=== PATIENT | female | born 1935 | race Caucasian/White ===

== ENCOUNTER 2016-10-10 14:15 | Emergency (ER) | payer OTHER ==
[2016-10-10 14:21] VITALS: BP 122/66; PULSE 98; TEMP 98.2; BMI 28.0
[2016-10-10] MEDS ORDERED: KETOROLAC TROMETHAMINE 30 MG/1 ML VIAL ONE (15:22)
[2016-10-10] MEDS ORDERED: diazePAM 5 MG TABLET ONE (15:23)
[2016-10-10] MEDS ORDERED: KETOROLAC TROMETHAMINE 60 MG/2 ML VIAL IM ONE (15:33)
[2016-10-10] MEDS ORDERED: diazePAM 5 MG TABLET PO ONE (15:34)
--- NOTE | 2016-10-10 15:40 | PDOC ---
History of Present Illness - General Chief Complaint: Pain Stated Complaint: Right Hip side pain Time Seen by Provider: 10/10/16 14:47 History Source: Patient, Parent(s) Exam Limitations: No Limitations - History of Present Illness Initial Comments: 10/10/16 15:40 Shunt is here with complaints of right low back pain 2 weeks. 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 The following day was holding heavy cake on her lap but was sitting inappropriately in the struck sideways for approximately 45 minutes. States after that incident had worsening pain in the same area that is lasted primarily constantly for 2 weeks. Used 200mg tablets with minimal resolved. Denies numbness or tingling to hands or feet, denies fever, cough or URI symptoms. Denies nausea vomiting, diarrhea or constipation. Denies changes in bowel or bladder without any noted bleeding or discoloration although feels is mildly dehydrated" does not drink enough water". Denies any vaginal complaints. Has not seen private physician in 10 years, and is taking no medication 10/10/16 15:44 Occurred: reports: just prior to arrival Severity: reports: mild, moderate Pain Location: reports: back Method of Injury: Yes: unknown Modifying Factors: improves with: None Associated Symptoms (Fall): denies symptoms Past History - Travel Traveled outside of the country in the last 30 days: No Close contact w/someone who was outside of country & ill: No - Past Medical History Allergies/Adverse Reactions: Allergies Allergy/AdvReac Type Severity Reaction Status Date / Time No Known Allergies Allergy Verified 10/10/16 14:20 Home Medications: Ambulatory Orders No Home Medications 0 dose .ROUTE UTDICT 12/07/13 Cardiac Disorders: Yes (MVP?) COPD: Yes - Immunization History Td Vaccination: Yes (2009) Immunization Up to Date: No - Psycho/Social/Smoking Cessation Hx Anxiety: No Suicidal Ideation: No Smoking History: Never smoked Information on smoking cessation initiated: No Hx Alcohol Use: Yes (wine) Drug/Substance Use Hx: No Substance Use Type: None Trauma Specific PMHX - Complaint Specific PMHX Arthritis: No Back Injury: No Neck Injury: No Hx Sacro Iliac Joint Dysfunction: No Review of Systems - Review of Systems Able to Perform ROS?: Yes Is the patient limited Turkish proficient: Yes Constitutional: Yes: Symptoms Reported, See HPI, Malaise HEENTM: No: Symptoms Reported Respiratory: Yes: Symptoms reported ABD/GI: Yes: Symptoms Reported Integumentary: Yes: See HPI. No: Symptoms Reported, Bruising, Pruritus, Rash Neurological: Yes: See HPI. No: Symptoms reported, Headache All Other Systems: Reviewed and Negative *Physical Exam - Vital Signs Last Vital Signs Temp Pulse Resp BP Pulse Ox 98.2 F 98 H 18 122/66 98 10/10/16 14:19 10/10/16 14:19 10/10/16 14:19 10/10/16 14:19 10/10/16 14:19 - Physical Exam General Appearance: Yes: Nourished, Appropriately Dressed, Mild Distress HEENT: positive: SATURNION, Normal ENT Inspection, TMs Normal, Pharynx Normal Neck: positive: Supple. negative: Tender, Lymphadenopathy (R), Lymphadenopathy (L) Respiratory/Chest: positive: Lungs Clear, Normal Breath Sounds Female Pelvic Exam: negative: normal external exam Gastrointestinal/Abdominal: positive: Normal Bowel Sounds, Soft. negative: Tender, Organomegaly, Guarding, Rebound, Tenderness Musculoskeletal: positive: Muscle Spasm (palpable spasm noted to the paravertebral spinous muscles lumbar and lower rhomboid areas. Has no true bone tenderness along cervical thoracic or lumbar spine. Able to flex and extend at waist but movement from side to side reproduces the pain in the same muscle groups ). negative: Vertebral Tenderness Extremity: positive: Normal Capillary Refill, Normal Range of Motion. negative : Tender Integumentary: positive: Normal Color. 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 NML intact, Fully Oriented, Alert, Normal Mood/ Affect, Normal Response, Motor Strength 5/5 Progress Note - Progress Note Progress Note: Lower back strain, will treat with low dose NSAIDs and low dose Valium for antispasmodic and have follow-up with PMD *DC/Admit/Observation/Transfer Diagnosis at time of Disposition: Low back strain Qualifiers: Encounter type: initial encounter Qualified Code(s): S39.012A - Strain of muscle, fascia and tendon of lower back, initial encounter - Discharge Dispostion Disposition: HOME Condition at time of disposition: Stable Admit: No - Patient Instructions Printed Discharge Instructions: DI for Back Spasm Additional Instructions: Rest, no heavy lifting or exercise until pain is resolved Hot soaks to neck and low back as often as possible/hot showers or Jacuzzis No massage or therapy until spasm is gone Continue ibuprofen 200 mg tablets every 6 hours for the next 3 days then as needed for pain and swelling Valium- One half of 5 mg tablet every 8 hours as needed for spasm If not significant improvement within 24 hours with medication and rest regime, followup with private physician for change in medications and /or therapy.
[2016-10-10 16:10] LABS: URINE APPEARANCE CLOUDY; URINE BILIRUBIN NEGATIVE (NEGATIVE); URINE COLOR YELLOW; URINE GLUCOSE (UA) NEGATIVE (NEGATIVE); URINE KETONE TRACE (NEGATIVE); URINE NITRITE NEGATIVE (NEGATIVE); URINE UROBILINOGEN NEGATIVE E.U./dl (0.2-1.0)
[2016-10-10 16:26] LABS: URINE BLOOD 1+ (NEGATIVE); URINE LEUK ESTERASE TRACE (NEGATIVE); URINE PROTEIN 2+ (NEGATIVE)
[2016-10-10 16:34] LABS: URINE MUCUS MANY; URINE RBC 5 /hpf (0-3); URINE WBC 11 /hpf (3-5)
== END 2016-10-10 16:37 | disposition home or self-care (01) ==
LOC: JERFT 14:15
PROC: 3E0233Z Introduction of Anti-inflammatory into Muscle, Percutaneous Approach (ICD-10-PCS; principal; 2016-10-10)
DX: S39.012A Strain of muscle, fascia and tendon of lower back, initial encounter (principal); M62.830 Muscle spasm of back; X50.1XXA Overexertion from prolonged static or awkward postures, initial encounter; V48.4XXA Person boarding or alighting a car injured in noncollision transport accident, initial encounter; Y92.414 Local residential or business street as the place of occurrence of the external cause; Y93.89 Activity, other specified; Y99.9 Unspecified external cause status; J44.9 Chronic obstructive pulmonary disease, unspecified
CPT/HCPCS: 81003; 81015; 96372; 99281-25

== ENCOUNTER 2016-12-19 19:11 | Inpatient (IN) | payer OTHER ==
--- NOTE | 2016-12-19 20:47 | PDOC ---
History of Present Illness - General Chief Complaint: Respiratory Stated Complaint: CT SCAN ORDERED BY DR Alejandre Seen by Provider: 12/19/16 19:32 - History of Present Illness Initial Comments: 12/19/16 20:34 81 yo F with h/o diverticulosis, multiple sclerosis( 11/12/16) , and compression fracture s/p lumbar surgery ( 11/18/16) presents with chest pain. Denies trauma to chest. Reports one week left sided chest pain. Pain is sharp in nature and onset with deep inhalation. Endorses discomfort/difficulty with breathing, " feels like a left lung is not expanding fully." Denies SOB, cough, hemoptysis, leg/calf pain, leg swelling, shoulder/jaw/neck pain, lightheadedness, dizziness , N/V, fevers/chills, GI complaints, or urinary complaints . Had recent lumbar spine surgery at [facility] 11/18, and rehabilitation for 3 weeks and past 4-5 days at "[facility] States that she has received 2 CXRs, and doppler ultrasonography of BL LE. She states that she was told by her pan puller " Dr. Pope" that she should come to ED to receive CTA chest to definitively r/o PE. Pt. denies HRT. H/o PE over 30 years ago. OTC extra stregnth Tylenol 1000mg BID. Pt. states that she does not wish to receive CXR in ED d/t concern of excessive radiation exposure. Past History - Past Medical History Allergies/Adverse Reactions: Allergies Allergy/AdvReac Type Severity Reaction Status Date / Time Latex, Natural Rubber Allergy Verified 12/19/16 19:56 Penicillins Allergy Verified 12/19/16 19:56 Home Medications: Ambulatory Orders No Home Medications 0 dose .ROUTE UTDICT 12/07/13 Cardiac Disorders: Yes (MVP?) COPD: Yes - Immunization History Td Vaccination: Yes (2009) Immunization Up to Date: No - Psycho/Social/Smoking Cessation Hx Anxiety: No Suicidal Ideation: No Smoking History: Unknown if ever smoked Have you smoked in the past 12 months: No Information on smoking cessation initiated: No Hx Alcohol Use: No Drug/Substance Use Hx: No Substance Use Type: None Review of Systems - Review of Systems Comments:: 12/19/16 20:53 GENERAL/CONSTITUTIONAL: No fever or chills. No weakness. HEAD, EYES, EARS, NOSE AND THROAT: No change in vision. No ear pain or discharge. No sore throat. CARDIOVASCULAR: No chest pain or shortness of breath RESPIRATORY: + Chest wall pain. No cough, wheezing, or hemoptysis. GASTROINTESTINAL: No nausea, vomiting, diarrhea or constipation. GENITOURINARY: No dysuria, frequency, or change in urination. MUSCULOSKELETAL: No joint or muscle swelling or pain. No neck or back pain. SKIN: No rash NEUROLOGIC: No headache, vertigo, loss of consciousness, or change in strength/ sensation. ENDOCRINE: No increased thirst. No abnormal weight change HEMATOLOGIC/LYMPHATIC: No anemia, easy bleeding, or history of blood clots. ALLERGIC/IMMUNOLOGIC: No hives or skin allergy. *Physical Exam - Vital Signs Last Vital Signs Temp Pulse Resp BP Pulse Ox 98.6 F 95 H 16 112/75 97 12/19/16 19:56 12/19/16 19:56 12/19/16 19:56 12/19/16 19:56 12/19/16 19:56 - Physical Exam Comments: 12/19/16 20:54 GENERAL: Awake, alert, and fully oriented, in no acute distress HEAD: No signs of trauma, normocephalic, atraumatic EYES: PERRLA, EOMI, sclera anicteric, conjunctiva clear ENT: Auricles normal inspection, hearing grossly normal, nares patent, oropharynx clear without exudates. Moist mucosa NECK: Normal ROM, supple, no lymphadenopathy, JVD, or masses LUNGS: Left sided lateral chest wall tenderness at 7-8th rib space Anterior- Midaxillary line. Absent Bulging. No distress, speaks full sentences, clear to auscultation bilaterally HEART: Regular rate and rhythm, normal S1 and S2, no murmurs, rubs or gallops, peripheral pulses normal and equal bilaterally. ABDOMEN: Soft, nontender, normoactive bowel sounds. No guarding, no rebound. No masses EXTREMITIES: Normal inspection, Normal range of motion, no edema. No clubbing or cyanosis. NEUROLOGICAL: Cranial nerves II through XII grossly intact. Normal speech, normal gait, no focal sensorimotor deficits SKIN: Warm, Dry, normal turgor, no rashes or lesions noted Heart Score/ECG Review - History History: Slightly suspicious - Electrocardiogram EKG: Normal - Age Age: >/= 65 - Risk Factors Based on the list above the patient has:: 1-2 risk factors - Troponin Troponin: </= normal limit - Score Heart Score - Total: 3 - [place]: Normal - ECG Impressions Normal ECG: Yes ED Treatment Course - LABORATORY CBC & Chemistry Diagram: 12/19/16 23:20 12/19/16 23:20 Medical Decision Making - Medical Decision Making 81 yo F with h/o MM, diverticulosis, lumbar compression fracture s/p surgical repair ( 11/18) who presents with lateral chest wall tenderness. Pt. concerned that she has PE. Moderate Risk Group: 16.2% risk of PE Wells Criteria Pt. h/o renal dz. 2/2 MM. V/Q scan vs. CTA Suspicion of MSK related chest wall pain vs. rib fracture. DDx: MSK pain, rib fracture, pneumonia,PE Ed course: Discussed with Dr. Lyon Pt. admission to Telemetry CMP- Unremarkable CBC- WBC:3.9, Hgb: 9.5, Hct: 28.4 EKG- unremarkable Trop- Neg Consult Pulmonology and Cardiology 12/20/16 00:14 Heart Score 0-3 *DC/Admit/Observation/Transfer Diagnosis at time of Disposition: Multiple myeloma Qualifiers: Multiple myeloma remission status: unspecified Qualified Code(s): C90.00 - Multiple myeloma not having achieved remission Chest pain Qualifiers: Chest pain type: chest pain on breathing Qualified Code(s): R07.1 - Chest pain on breathing - Discharge Dispostion Admit: Yes - Referrals Referrals: Oumou Silva MD [Primary Care Provider] -
--- NOTE | 2016-12-19 22:04 | PDOC ---
Attending Attestation - HPI HPI: The patient is an 81 yo F with a past medical history significant for diverticulosis, multiple sclerosis (11/12/16) , and compression fracture s/p lumbar surgery ( 11/18/16) who presents with L sided chest pain for 4 days. Patient states the pain is only present on deep inhalation. When she exhales it goes away. Patient denies SOB. The patient denies nausea, vomiting, diarrhea and abdominal pain. Has been in rehab for past 3 weeks s/p lumbar surgery. Patient states she was referred her by her registration officer to definitively r/o PE. PCP: Dr. Beck - Physicial Exam PE: GENERAL: Well developed, well nourished. Awake and alert. No acute distress. Conversant. HEENT: Normocephalic, atraumatic. PERRLA, EOMI. No conjunctival pallor. Sclera are non- icteric. Moist mucous membranes. Oropharynx is clear. NECK: Supple. Full ROM. No JVD. Carotid pulses 2+ and symmetric, without bruits. No thyromegaly. No lymphadenopathy. CARDIOVASCULAR: Regular rate and rhythm. No murmurs, rubs, or gallops. Distal pulses are 2+ and symmetric. PULMONARY: No evidence of respiratory distress. Lungs clear to auscultation bilaterally. No wheezing, rales or rhonchi. ABDOMINAL: Soft. Non-tender. Non-distended. No rebound or guarding. No organomegaly. Normoactive bowel sounds. MUSCULOSKELETAL Normal range of motion at all joints. No bony deformities or tenderness. No CVA tenderness. EXTREMITIES: No cyanosis. No clubbing. No edema. No calf tenderness. SKIN: Warm and dry. Normal capillary refill. No rashes. No jaundice. NEUROLOGICAL: No gross focal neurological deficits. PSYCHIATRIC: Cooperative. Good eye contact. Appropriate mood and affect. - Medical Decision Making Documentation prepared by Arleth Shah, acting as medical scientific officer for Heather Erickson MD/DO. <Arleth Shah - Last Filed: 12/20/16 00:54> - Physicial Exam PE: 12/20/16 01:29 81-year-old female sent from [facility] to rule out a pulmonary embolism -Patient has multiple myeloma and had a pathological vertebral fracture that required surgery. -according to the pt, They stopped her subcutaneous Lovenox and surgical stockings at the [facility] She has developed left-sided pleuritic chest pain Troponin is negative On December 15. She had chest x-ray that did not show any infiltrates, she also had lower extremity Dopplers dominant December 15. It did not show any DVTs - -the pt said her oncologist told her She could not have contrast and therefore, she was not able to have a CTA of the chest 12/20/16 01:43 petite 81 yo female with c/o pleuretic chest pain lungs cta b/l cvr [id number] abd no rebound ext no pitting edema neuro axox3 12/20/16 01:46 - Medical Decision Making 12/20/16 01:[address] Johnson, pt received lovenox 50 mg sq,admitted to room 425 , plan - VQ scan <Heather Erickson - Last Filed: 12/20/16 01:47>
[2016-12-19 23:30] LABS: MCH 31.9 pg (25.7-33.7); MCHC 33.4 g/dl (32.0-36.0); MEAN CELL VOLUME 95.7 fl (80-96); MEAN PLT VOLUME 6.7 fl (7.5-11.1); PLATELET COUNT 243 K/MM3 (134-434); RDW 17.8 % (11.6-15.6); WHITE BLOOD COUNT 3.9 K/mm3 (4.0-10.0)
[2016-12-19 23:42] LABS: INR 1.08 (0.82-1.09); PROTHROMBIN TIME (PATIENT) 11.9 SEC (9.98-11.88)
[2016-12-19 23:50] LABS: ALK PHOS 106 U/L (45-117); ANION GAP 7 (8-16); BILIRUBIN,TOTAL 0.2 mg/dL (0.2-1.0); CALCIUM 8.9 mg/dL (8.5-10.1); CO2 29 mmol/L (21-32); CREATININE 0.7 mg/dL (0.55-1.02); GLUCOSE,RANDOM 76 mg/dL (74-106); SGOT/AST 30 U/L (15-37); SGPT/ALT 28 U/L (12-78); TOT PROT 6.5 g/dl (6.4-8.2)
--- NOTE | 2016-12-20 01:17 | PDOC ---
*Physical Exam - Vital Signs Last Vital Signs Temp Pulse Resp BP Pulse Ox 98.6 F 95 H 16 112/75 97 12/19/16 19:56 12/19/16 19:56 12/19/16 19:56 12/19/16 19:56 12/19/16 19:56 ED Treatment Course - LABORATORY CBC & Chemistry Diagram: 12/19/16 23:20 12/19/16 23:20 - ADDITIONAL ORDERS Additional order review: Laboratory Results 12/19/16 12/19/16 12/19/16 23:20 23:20 23:20 INR 1.08 D-Dimer Sodium 141 Potassium 3.9 Chloride 105 Carbon Dioxide 29 Anion Gap 7 L BUN 12 D Creatinine 0.7 Creat Clearance w eGFR > 60 Random Glucose 76 Calcium 8.9 Total Bilirubin 0.2 D AST 30 D ALT 28 D Alkaline Phosphatase 106 D Troponin I < 0.02 Total Protein 6.5 Albumin 3.0 L D 12/19/16 23:19 INR D-Dimer 900 H Sodium Potassium Chloride Carbon Dioxide Anion Gap BUN Creatinine Creat Clearance w eGFR Random Glucose Calcium Total Bilirubin AST ALT Alkaline Phosphatase Troponin I Total Protein Albumin 12/19/16 23:20 RBC 2.97 L D MCV 95.7 MCHC 33.4 RDW 17.8 H D MPV 6.7 L Neutrophils % Y Lymphocytes % Y *DC/Admit/Observation/Transfer Diagnosis at time of Disposition: Multiple myeloma Qualifiers: Multiple myeloma remission status: unspecified Qualified Code(s): C90.00 - Multiple myeloma not having achieved remission Chest pain Qualifiers: Chest pain type: chest pain on breathing Qualified Code(s): R07.1 - Chest pain on breathing - Discharge Dispostion Admit: Yes
[2016-12-20] MEDS ORDERED: ENOXAPARIN NA (PORCINE) 60 MG/0.6 ML DISP.SYRIN SQ ONE (01:24)
[2016-12-20] MEDS: ENOXAPARIN NA (PORCINE) 60 MG/0.6 ML DISP.SYRIN SQ SCH ×2 (01:33→14:03)
[2016-12-20 07:03] VITALS: BMI 26.4
[2016-12-20] MEDS: ACETAMINOPHEN 325 MG TABLET (FP) PO PRN (08:51)
--- NOTE | 2016-12-20 10:33 | CON.CARD ---
Consult Consult Specialty:: Cardiology Referred by:: Dr. Lyon Reason for Consultation:: Cardiac evaluation - History of Present Illness Chief Complaint: Left side chest discomfort with inspiration History of Present Illness: Patient is an 81 year old female with underlying history of multiple myeloma status post lumbar surgery at [facility] recently currently at [facility] for rehab after acute rehab at [place] now presents with left sided chest discomfort underneath her breast with deep inspiration. She was evaluated by a dialysis nurse as the rehab center who was concerned about pulmonary embolism. She states history of COPD, but currently does not take any bronchodilators. She denies shortness of breath or palpitations. She denies paroxysmal nocturnal dyspnea or orthopnea. She denies fever or chills. She denies headache or lightheadedness. She denies any syncopal episode. She states history of mitral valve prolapse on one of the echocardiogram. She also states history of pulmonary embolism 30 years ago and was treated with anticoagulation. She denies history of hypertension or diabetes mellitus. She was told hypercholesterolemia, but refused to take statins. - History Source History Provided By: Patient, Medical Record Limitations to Obtaining History: No Limitations - Past Medical History Cardio/Vascular: Yes: Hyperlipdemia Pulmonary: Yes: COPD ...: No Heme/Onc: Yes: Other (Multiple myeloma) Musculoskeletal: Yes: Osteoarthritis Endocrine: No: Diabetes Mellitus, Hypothyroidism - Past Surgical History Additional Surgical History: Lumbar surgery to remove tumor - Alcohol/Substance Use Hx Alcohol Use: No History of Substance Use: reports: None - Smoking History Smoking history: Never smoked Have you smoked in the past 12 months: No Home Medications - Allergies Allergies/Adverse Reactions: Allergies Allergy/AdvReac Type Severity Reaction Status Date / Time Latex, Natural Rubber Allergy Verified 12/19/16 19:56 Penicillins Allergy Verified 12/19/16 19:56 - Home Medications Home Medications: Ambulatory Orders Acetaminophen [Extra Strength Non-Aspirin] 1,000 mg PO BID 12/20/16 Aspirin [Aspirin EC] 81 mg PO DAILY 12/20/16 Famotidine 20 mg PO DAILY 12/20/16 Ferrous Sulfate 325 mg PO DAILY 12/20/16 Folic Acid 1 mg PO DAILY 12/20/16 Polyethylene Glycol 3350 [Gavilax] 17 gm PO DAILY 12/20/16 Sennosides [Senna] 2 tablet PO HS 12/20/16 Tramadol HCl 50 mg PO DAILY 12/20/16 Vitamin D2 50,000 units PO WEEKLY 12/20/16 Voltaren 2 grams TP QID 12/20/16 Family Disease History - Family Disease History Family Disease History: Diabetes: Mother, CA: Sister (Breast CA), Other: Father (COPD) Review of Systems - Review of Systems Constitutional: denies: Chills, Fever Cardiovascular: reports: Chest Pain (Left side discomfort with inspiration ( probable pleuritic)) Respiratory: denies: Cough, Hemoptysis, Orthopnea, PND Gastrointestinal: denies: Abdominal Pain, Constipation, Diarrhea, Melena, Nausea , Rectal Bleeding, Vomiting Neurological: denies: Dizziness, Headache, Seizure, Syncope Vital Signs: Vital Signs Temperature 98.0 F 12/20/16 08:22 Pulse Rate 82 12/20/16 08:22 Respiratory Rate 20 12/20/16 08:26 Blood Pressure 110/69 12/20/16 08:22 O2 Sat by Pulse Oximetry (%) 98 12/20/16 08:26 Neck: Yes: Supple Respiratory: Yes: Diminished (Left lower base) Gastrointestinal: Yes: Normal Bowel Sounds, Soft. No: Tenderness Cardiovascular: Yes: Regular Rate and Rhythm JVD: No Carotid Bruit: No PMI: Non-Displaced Heart Sounds: Yes: S1, S2 Murmur: No: Systolic Murmur, Diastolic Murmur Edema: No - Other Data Labs, Other Data: INR, PTT INR 1.08 (0.82-1.09) 12/19/16 23:20 Laboratory Results - last 24 hr 12/19/16 12/19/16 12/19/16 23:19 23:20 23:20 WBC 3.9 L D RBC 2.97 L D Hgb 9.5 L D Hct 28.4 L D MCV 95.7 MCH 31.9 MCHC 33.4 RDW 17.8 H D Plt Count 243 MPV 6.7 L Neutrophils % Y Lymphocytes % Y INR 1.08 D-Dimer 900 H Sodium Potassium Chloride Carbon Dioxide Anion Gap BUN Creatinine Creat Clearance w eGFR Random Glucose Calcium Total Bilirubin AST ALT Alkaline Phosphatase Troponin I Total Protein Albumin 12/19/16 12/19/16 23:20 23:20 WBC RBC Hgb Hct MCV MCH MCHC RDW Plt Count MPV Neutrophils % Lymphocytes % INR D-Dimer Sodium 141 Potassium 3.9 Chloride 105 Carbon Dioxide 29 Anion Gap 7 L BUN 12 D Creatinine 0.7 Creat Clearance w eGFR > 60 Random Glucose 76 Calcium 8.9 Total Bilirubin 0.2 D AST 30 D ALT 28 D Alkaline Phosphatase 106 D Troponin I < 0.02 Total Protein 6.5 Albumin 3.0 L D Sinus rhythm with 95 bpm, no ST-T abnormality Echo: Pending Imaging - Results Chest X-ray: Report Reviewed (Unremarkable) EKG: Report Reviewed Problem List - Problems (1) Chest pain Code(s): R07.9 - CHEST PAIN, UNSPECIFIED Qualifiers: Chest pain type: chest pain on breathing Qualified Code(s): R07.1 - Chest pain on breathing (2) Multiple myeloma Code(s): C90.00 - MULTIPLE MYELOMA NOT HAVING ACHIEVED REMISSION Qualifiers: Multiple myeloma remission status: unspecified Qualified Code(s): C90.00 - Multiple myeloma not having achieved remission (3) Low back strain Code(s): S39.012A - STRAIN OF MUSCLE, FASCIA AND TENDON OF LOWER BACK, INIT Qualifiers: Encounter type: initial encounter Qualified Code(s): S39.012A - Strain of muscle, fascia and tendon of lower back, initial encounter Assessment/Plan 1. Multiple myeloma status post lumbar surgery 2. History of pulmonary embolism in the past, now with pleuritic chest pain, rule out recurrent pulmonary embolism 3. History of COPD 4. Remote history of mitral valve prolapse PLAN: 1. V/Q scan or CTA of chest to rule out PTE. Consider lower extremity Doppler to rule out DVT 2. Transthoracic echocardiography to assess LV/RV and valvular function 3. Currently on Lovenox 4. Further treatment options for multiple myeloma to be determined by oncologist at [facility] 5. Analgesics as needed 6. Follow lipid panel Further plans are to follow Reji Bang MD
--- NOTE | 2016-12-20 11:33 | PN ---
Progress Note (short form) - Note Progress Note: PULMONARY CONSULTATION DICTATED 12/20/16 IMP CHEST PAIN ?PE,?MUSCULOSKELETAL MULTIPLE MYELOMA RECENT BACK SURGERY H/O PE UNPROVOKED ? COPD PLAN V/Q SCAN PT REFUSES CHEST CTA OBTAIN RESULTS OF LOWER EXT DUPLEX ECHO NASAL O2 PRN DR DOMINGO Problem List - Problems (1) Chest pain Code(s): R07.9 - CHEST PAIN, UNSPECIFIED Qualifiers: Chest pain type: chest pain on breathing Qualified Code(s): R07.1 - Chest pain on breathing (2) Multiple myeloma Code(s): C90.00 - MULTIPLE MYELOMA NOT HAVING ACHIEVED REMISSION Qualifiers: Multiple myeloma remission status: unspecified Qualified Code(s): C90.00 - Multiple myeloma not having achieved remission
--- NOTE | 2016-12-20 15:36 | EKG ---
Test Reason : Blood Pressure : / mmHG Vent. Rate : 095 BPM Atrial Rate : 095 BPM P-R Int : 166 ms QRS Dur : 082 ms QT Int : 358 ms P-R-T Axes : 071 034 054 degrees QTc Int : 449 ms NORMAL SINUS RHYTHM NORMAL ECG WHEN COMPARED WITH ECG OF 29-MAY-2005 16:10, NO SIGNIFICANT CHANGE WAS FOUND CLINICAL CORRELATION IS RECOMMENDED Confirmed by LEANNA TONY MD ([id number]) on 12/20/2016 3:35:57 PM Referred By: HAKAN Confirmed By:LEANNA TONY MD
--- NOTE | 2016-12-20 16:28 | CONS ---
PULMONARY CONSULTATION DATE OF CONSULTATION: 12/20/2016 REFERRING PHYSICIAN: Jessica Lyon MD HISTORY OF PRESENT ILLNESS: The patient is an 81-year-old white female with past medical history of recently diagnosed multiple myeloma; status post lumbar surgery November 19; a history of questionable COPD, does not smoke but has extensive history of exposure to second-hand smoke; history of pulmonary embolism 30 years ago, unprovoked; hyperlipidemia; osteoarthritis; admitted to [facility] with a complaint of left-sided chest discomfort, increasing with inspiration, lasting approximately 3-4 days at the [facility] for rehab. As stated before, she recently underwent lumbar surgery at [facility] the last week in October. Postoperatively, she was transferred to [facility] and then transferred to [facility] for further rehab. While at the [facility], apparently started developing left-sided chest discomfort, pleuritic in nature. Denied any significant shortness of breath associated with it. She was evaluated by obstetrician at the rehab center, who was concerned about a pulmonary embolism. At which time, she was advised to go to the emergency room. She denies any nausea, vomiting, any diaphoresis. Denies any hemoptysis. Denies any cough. Denies any syncope. She denies any history of occupational exposures to chemicals or fumes. PAST MEDICAL HISTORY: Again includes a history of pulmonary embolism 30 years ago, unprovoked; recently diagnosed multiple myeloma; and recent history of lumbar surgery, as well as hypercholesterolemia and questionable COPD. REVIEW OF SYSTEMS: No orthopnea. No PND. Positive pleuritic chest pain. No nausea. No vomiting. No palpitations. No dyspnea. No orthopnea. No abdominal pain. No lower extremity edema. CURRENT MEDICATIONS: Include: 1. Tylenol. 2. Lovenox 50 q.12. LABORATORY DATA: WBC is 3.9, hemoglobin 9.5, hematocrit 28.4, platelet count 243,000. D-dimer is 900. INR is 1.08. Chest x-ray reveals no infiltrates and no effusions. Patient states that she underwent a duplex of the lower extremities at the intermediate, which was within normal limits and showed no evidence of DVT. IMPRESSION: 1. Chest pain syndrome, etiology to be determined, cannot exclude possible pulmonary embolism. Patient is at increased risk secondary to recent surgery as well as underlying malignancy as well as history of pulmonary embolism. Rule out possible musculoskeletal versus acute pleurisy. 2. Multiple myeloma. 3. Questionable history of chronic obstructive pulmonary disease. 4. Hypercholesterolemia. PLAN: Ventilation and perfusion lung scan, nasal O2 p.r.n. Try to obtain results of duplex, lower extremities. Continue with Lovenox pending results of V/Q scan. Further recommendations to follow pending the results of the V/Q scan. NASRIN DOMINGO M.D. GENTRY/[id number]
--- NOTE | 2016-12-20 17:39 | HP ---
Admitting History and Physical - Primary Care Physician PCP: Jessica Lyon - Admission Chief Complaint: CHEST PAIN History of Present Illness: - 81 year old female with underlying history of multiple myeloma status post lumbar surgery at [facility] recently currently at [facility] for rehab after acute rehab at [place] now presents with left sided chest discomfort underneath her breast with deep inspiration. She was evaluated by a algebra teacher as the rehab center who was concerned about pulmonary embolism. She states history of COPD, but does not take any bronchodilators. She denies shortness of breath or palpitations. She states history of mitral valve prolapse on one of the echocardiogram. She also states history of pulmonary embolism 30 years ago and was treated with anticoagulation. - Past Medical History Cardiovascular: Yes: Hyperlipdemia Pulmonary: Yes: COPD ...: No Heme/Onc: Yes: Other (Multiple myeloma) Musculoskeletal: Yes: Osteoarthritis Endocrine: No: Diabetes Mellitus, Hypothyroidism - Smoking History Smoking history: Never smoked Have you smoked in the past 12 months: No - Alcohol/Substance Use Hx Alcohol Use: No History of Substance Use: reports: None Home Medications - Allergies Allergies/Adverse Reactions: Allergies Allergy/AdvReac Type Severity Reaction Status Date / Time Latex, Natural Rubber Allergy Verified 12/19/16 19:56 Penicillins Allergy Verified 12/19/16 19:56 - Home Medications Home Medications: Ambulatory Orders Acetaminophen [Extra Strength Non-Aspirin] 1,000 mg PO BID 12/20/16 Aspirin [Aspirin EC] 81 mg PO DAILY 12/20/16 Famotidine 20 mg PO DAILY 12/20/16 Ferrous Sulfate 325 mg PO DAILY 12/20/16 Folic Acid 1 mg PO DAILY 12/20/16 Polyethylene Glycol 3350 [Gavilax] 17 gm PO DAILY 12/20/16 Sennosides [Senna] 2 tablet PO HS 12/20/16 Tramadol HCl 50 mg PO DAILY 12/20/16 Vitamin D2 50,000 units PO WEEKLY 12/20/16 Voltaren 2 grams TP QID 12/20/16 Family Disease History - Family Disease History Family Disease History: Diabetes: Mother, CA: Sister (Breast CA), Other: Father (COPD) Physical Examination Vital Signs: Vital Signs Temperature 98.0 F 12/20/16 08:22 Pulse Rate 82 12/20/16 08:22 Respiratory Rate 20 12/20/16 08:26 Blood Pressure 110/69 12/20/16 08:22 O2 Sat by Pulse Oximetry (%) 98 12/20/16 08:26 Constitutional: Yes: No Distress HENT: Yes: Atraumatic Neck: Yes: Supple Cardiovascular: Yes: Regular Rate and Rhythm Respiratory: Yes: CTA Bilaterally Gastrointestinal: Yes: Normal Bowel Sounds Extremities: Yes: WNL Edema: No Neurological: Yes: Alert, Oriented Problem List - Problems (1) Chest pain Assessment/Plan: TROPONIN NEGATIVE ON LOVENOX FOR PE VQ SCAN LOW PROBABILITY NEED CTA Code(s): R07.9 - CHEST PAIN, UNSPECIFIED Qualifiers: Chest pain type: chest pain on breathing Qualified Code(s): R07.1 - Chest pain on breathing (2) Multiple myeloma Code(s): C90.00 - MULTIPLE MYELOMA NOT HAVING ACHIEVED REMISSION Qualifiers: Multiple myeloma remission status: unspecified Qualified Code(s): C90.00 - Multiple myeloma not having achieved remission (3) Low back strain Assessment/Plan: prn pain meds Code(s): S39.012A - STRAIN OF MUSCLE, FASCIA AND TENDON OF LOWER BACK, INIT Qualifiers: Encounter type: initial encounter Qualified Code(s): S39.012A - Strain of muscle, fascia and tendon of lower back, initial encounter Assessment/Plan Laboratory Results - last 24 hr 12/19/16 12/19/16 12/19/16 23:19 23:20 23:20 WBC 3.9 L D RBC 2.97 L D Hgb 9.5 L D Hct 28.4 L D MCV 95.7 MCH 31.9 MCHC 33.4 RDW 17.8 H D Plt Count 243 MPV 6.7 L Neutrophils % Y Lymphocytes % Y INR 1.08 D-Dimer 900 H Sodium Potassium Chloride Carbon Dioxide Anion Gap BUN Creatinine Creat Clearance w eGFR Random Glucose Calcium Total Bilirubin AST ALT Alkaline Phosphatase Troponin I Total Protein Albumin 12/19/16 12/19/16 23:20 23:20 WBC RBC Hgb Hct MCV MCH MCHC RDW Plt Count MPV Neutrophils % Lymphocytes % INR D-Dimer Sodium 141 Potassium 3.9 Chloride 105 Carbon Dioxide 29 Anion Gap 7 L BUN 12 D Creatinine 0.7 Creat Clearance w eGFR > 60 Random Glucose 76 Calcium 8.9 Total Bilirubin 0.2 D AST 30 D ALT 28 D Alkaline Phosphatase 106 D Troponin I < 0.02 Total Protein 6.5 Albumin 3.0 L D Active Medications Generic Name Dose Route Start Last Admin Trade Name Freq PRN Reason Stop Dose Admin Acetaminophen 1,000 mg 12/20/16 10:58 Tylenol - PO Q6H PRN FEVER OR PAIN Enoxaparin Sodium 50 mg 12/20/16 01:15 12/20/16 14:03 Lovenox - SQ 50 mg Q12H [facility]OM[facility] Administration
[2016-12-20] MEDS: ACETAMINOPHEN 500 MG TABLET (FP) PO PRN (17:47)
[2016-12-21] MEDS: ENOXAPARIN NA (PORCINE) 60 MG/0.6 ML DISP.SYRIN SQ SCH ×2 (01:03→13:45)
[2016-12-21] MEDS: ACETAMINOPHEN 500 MG TABLET (FP) PO PRN ×2 (06:38→19:30)
--- NOTE | 2016-12-21 11:57 | PN ---
Progress Note (short form) - Note Progress Note: PULMONARY NOW STATES PLEURITIC TYPE PAIN HAS MOVED FROM LEFT CHEST TO THE RIGHT VSS/AFEBRILE NOT SOB "I CAN'T FILL MY LUNGS WITH AIR" ANICTERIC CLEAR LUNGS S1S2 BS+ SOFT NO EDEMA NEGATIVE V/Q SCAN UNOFFICIAL NEGATIVE VENOUS DUPLEX B/L LOWER EXT Recent lumbar spine surgery/comp fx MM chest pain etiology ? No evidence to support PE Echo reviewed O2 prn R ANGELICA GONSALES
--- NOTE | 2016-12-21 12:17 | PN ---
Progress Note, Physician History of Present Illness: V/q scan low prob, vascular U/S neg for DVT. Migratory pleurisy to right side. - Current Medication List Current Medications: Active Medications Acetaminophen (Tylenol -) 1,000 mg PO Q6H PRN PRN Reason: FEVER OR PAIN Last Admin: 12/21/16 06:38 Dose: 1,000 mg Enoxaparin Sodium (Lovenox -) 50 mg SQ Q12H [facility]OM[facility]S Last Admin: 12/21/16 01:03 Dose: 50 mg - Objective Vital Signs: Vital Signs Temperature 98.2 F 12/21/16 07:12 Pulse Rate 100 H 12/21/16 07:12 Respiratory Rate 20 12/21/16 07:17 Blood Pressure 109/68 12/21/16 07:12 O2 Sat by Pulse Oximetry (%) 98 12/21/16 07:17 Constitutional: Yes: No Distress, Calm Neck: Yes: Supple Cardiovascular: Yes: Regular Rate and Rhythm, Murmur (2/6 SM) Respiratory: Yes: Regular, Diminished Gastrointestinal: Yes: Normal Bowel Sounds, Soft Edema: No Labs: INR, PTT INR 1.08 (0.82-1.09) 12/19/16 23:20 Problem List - Problems (1) Multiple myeloma Code(s): C90.00 - MULTIPLE MYELOMA NOT HAVING ACHIEVED REMISSION Qualifiers: Multiple myeloma remission status: unspecified Qualified Code(s): C90.00 - Multiple myeloma not having achieved remission (2) Pleurisy Code(s): R09.1 - PLEURISY (3) Status post lumbar surgery Code(s): Z98.890 - OTHER SPECIFIED POSTPROCEDURAL STATES Assessment/Plan 12/20/2016 Echo: Normal LV size and fxn, mod MV prolapse with mod MR, mild-mod AR 1. Multiple myeloma status post lumbar surgery 2. History of pulmonary embolism in the past, now with pleuritic chest pain, ruld out recurrent pulmonary embolism 3. History of COPD 4. History of mitral valve prolapse PLAN: 1. Decrease Lovenox 40 qd (DVT prophylaxis dosing) 2. Further treatment options for multiple myeloma to be determined by oncologist at [facility] 3. Analgesics as needed, encourage use of incentive spirometry
[2016-12-21] MEDS: METHYL SALICYLATE/MENTHOL OINT 30 GM TUBE TP SCH ×2 (17:01→22:30)
--- NOTE | 2016-12-21 18:37 | PN ---
Progress Note, Physician - Current Medication List Current Medications: Active Medications Acetaminophen (Tylenol -) 1,000 mg PO Q6H PRN PRN Reason: FEVER OR PAIN Last Admin: 12/21/16 06:38 Dose: 1,000 mg Enoxaparin Sodium (Lovenox -) 40 mg SQ DAILY [facility] Methyl Salicylate (Sundeep-Lucero -) 1 applic TP BID [facility] Last Admin: 12/21/16 17:01 Dose: 1 applic - Objective Vital Signs: Vital Signs Temperature 98.7 F 12/21/16 14:49 Pulse Rate 88 12/21/16 14:49 Respiratory Rate 16 12/21/16 14:49 Blood Pressure 125/71 12/21/16 14:49 O2 Sat by Pulse Oximetry (%) 98 12/21/16 07:17 Constitutional: Yes: No Distress HENT: Yes: Atraumatic Neck: Yes: Supple Cardiovascular: Yes: Regular Rate and Rhythm Respiratory: Yes: CTA Bilaterally, Rhonchi Gastrointestinal: Yes: Normal Bowel Sounds Extremities: Yes: WNL Neurological: Yes: Alert, Oriented Labs: INR, PTT INR 1.08 (0.82-1.09) 12/19/16 23:20 Problem List - Problems (1) Chest pain Assessment/Plan: TROPONIN NEGATIVE ON LOVENOX DVT PPX DOPPLER ELPIDIO NEGATIVE FOR DVT Code(s): R07.9 - CHEST PAIN, UNSPECIFIED Qualifiers: Chest pain type: chest pain on breathing Qualified Code(s): R07.1 - Chest pain on breathing (2) Multiple myeloma Assessment/Plan: not on any meds Code(s): C90.00 - MULTIPLE MYELOMA NOT HAVING ACHIEVED REMISSION Qualifiers: Multiple myeloma remission status: unspecified Qualified Code(s): C90.00 - Multiple myeloma not having achieved remission (3) Low back strain Assessment/Plan: prn pain meds Code(s): S39.012A - STRAIN OF MUSCLE, FASCIA AND TENDON OF LOWER BACK, INIT Qualifiers: Encounter type: initial encounter Qualified Code(s): S39.012A - Strain of muscle, fascia and tendon of lower back, initial encounter (4) Status post lumbar surgery Code(s): Z98.890 - OTHER SPECIFIED POSTPROCEDURAL STATES Assessment/Plan DC IN AM IF STABLE PT DOES NOT WANT TO GO BACK TO [facility]...WANTS TO GO HOME
[2016-12-21] MEDS ORDERED: SENNOSIDES 8.6MG TABLET (FP) PO SCH (22:00)
[2016-12-21] MEDS: RANITIDINE HCL 150 MG TABLET (FP) PO SCH (22:28)
[2016-12-22 02:31] VITALS: TEMP 98.2
[2016-12-22 05:34] VITALS: BP 106/82
[2016-12-22] MEDS ORDERED: ACETAMINOPHEN 325 MG TABLET (FP) ONE (08:08)
[2016-12-22 08:12] LABS: MCH 32.3 pg (25.7-33.7); MCHC 33.9 g/dl (32.0-36.0); MEAN CELL VOLUME 95.5 fl (80-96); MEAN PLT VOLUME 6.9 fl (7.5-11.1); PLATELET COUNT 255 K/MM3 (134-434); RDW 18.1 % (11.6-15.6); WHITE BLOOD COUNT 4.5 K/mm3 (4.0-10.0)
[2016-12-22] MEDS: RANITIDINE HCL 150 MG TABLET (FP) PO SCH (09:16)
[2016-12-22] MEDS: ACETAMINOPHEN 325 MG TABLET (FP) PO PRN (09:16)
[2016-12-22] MEDS: METHYL SALICYLATE/MENTHOL OINT 30 GM TUBE TP SCH (09:17)
[2016-12-22 09:23] LABS: ALBUMIN 2.9 g/dl (3.4-5.0); ALK PHOS 90 U/L (45-117); ANION GAP 10 (8-16); BILIRUBIN,TOTAL 0.4 mg/dL (0.2-1.0); CALCIUM 9.2 mg/dL (8.5-10.1); CO2 27 mmol/L (21-32); CREATININE 0.6 mg/dL (0.55-1.02); GLUCOSE,RANDOM 73 mg/dL (74-106); SGOT/AST 34 U/L (15-37); SGPT/ALT 25 U/L (12-78); TOT PROT 6.7 g/dl (6.4-8.2)
[2016-12-22 09:53] LABS: METAMYELOCYTE 2 % (0-2); PLATELET ESTIMATE ADEQUATE (NORMAL)
[2016-12-22] MEDS ORDERED: ENOXAPARIN NA (PORCINE) 40 MG/0.4 ML DISP.SYRIN SQ SCH (10:00)
--- NOTE | 2016-12-22 11:49 | PN ---
Progress Note, Physician History of Present Illness: V/q scan low prob, vascular U/S neg for DVT. Pleurisy improving, ready to go home. - Current Medication List Current Medications: Active Medications Acetaminophen (Tylenol -) 1,000 mg PO Q6H PRN PRN Reason: FEVER OR PAIN Last Admin: 12/21/16 19:30 Dose: 1,000 mg Enoxaparin Sodium (Lovenox -) 40 mg SQ DAILY [facility] Last Admin: 12/22/16 09:17 Dose: 40 mg Methyl Salicylate (Sundeep-Lucero -) 1 applic TP BID [facility] Last Admin: 12/22/16 09:17 Dose: 1 applic Ranitidine HCl (Zantac -) 150 mg PO DAILY [facility] Last Admin: 12/22/16 09:16 Dose: 150 mg Senna (Senna -) 2 tab PO HS [facility] Last Admin: 12/21/16 22:30 Dose: 2 tab - Objective Vital Signs: Vital Signs Temperature 98.2 F 12/22/16 05:28 Pulse Rate 98 H 12/22/16 05:28 Respiratory Rate 20 12/22/16 05:28 Blood Pressure 106/82 12/22/16 05:28 O2 Sat by Pulse Oximetry (%) 95 12/21/16 21:00 Constitutional: Yes: No Distress, Calm Neck: Yes: Supple Cardiovascular: Yes: Regular Rate and Rhythm Respiratory: Yes: Regular, CTA Bilaterally Gastrointestinal: Yes: Normal Bowel Sounds, Soft Edema: No Labs: CBC, BMP 12/22/16 06:00 12/22/16 06:00 INR, PTT INR 1.08 (0.82-1.09) 12/19/16 23:20 Problem List - Problems (1) Multiple myeloma Code(s): C90.00 - MULTIPLE MYELOMA NOT HAVING ACHIEVED REMISSION Qualifiers: Multiple myeloma remission status: unspecified Qualified Code(s): C90.00 - Multiple myeloma not having achieved remission (2) Pleurisy Code(s): R09.1 - PLEURISY (3) Status post lumbar surgery Code(s): Z98.890 - OTHER SPECIFIED POSTPROCEDURAL STATES Assessment/Plan 12/20/2016 Echo: Normal LV size and fxn, mod MV prolapse with mod MR, mild-mod AR 1. Multiple myeloma status post lumbar surgery 2. History of pulmonary embolism in the past, now with pleuritic chest pain, ruled out recurrent pulmonary embolism 3. History of COPD 4. History of mitral valve prolapse 5. Anemia PLAN: 1. Further treatment options for multiple myeloma to be determined by oncologist at [facility] 2. Analgesics as needed, encourage use of incentive spirometry 3. D/c planning
[2016-12-22 13:47] VITALS: PULSE 94
--- NOTE | 2016-12-22 13:55 | DS ---
Physical Examination Vital Signs: Vital Signs Temperature 98.2 F 12/22/16 10:00 Pulse Rate 94 H 12/22/16 10:00 Respiratory Rate 20 12/22/16 10:00 Blood Pressure 106/82 12/22/16 10:00 O2 Sat by Pulse Oximetry (%) 96 12/22/16 10:00 Constitutional: Yes: No Distress HENT: Yes: Atraumatic Neck: Yes: Supple Cardiovascular: Yes: Regular Rate and Rhythm Respiratory: Yes: CTA Bilaterally Gastrointestinal: Yes: Normal Bowel Sounds Extremities: Yes: WNL Neurological: Yes: Alert, Oriented Labs: CBC, BMP 12/22/16 06:00 12/22/16 06:00 Discharge Summary Reason For Visit: CHEST PAIN MULTIPLE MYELOMA Current Active Problems Chest pain (Acute) Multiple myeloma (Acute) Pleurisy (Acute) Status post lumbar surgery (Acute) - Instructions Diet, Activity, Other Instructions: DISCONTINUE LOVENOX Referrals: Oumou Silva MD [Primary Care Provider] - Disposition: HOME - Home Medications Comprehensive Discharge Medication List: Ambulatory Orders Acetaminophen [Extra Strength Non-Aspirin] 1,000 mg PO BID 12/20/16 Aspirin [Aspirin EC] 81 mg PO DAILY 12/20/16 Famotidine 20 mg PO DAILY 12/20/16 Ferrous Sulfate 325 mg PO DAILY 12/20/16 Folic Acid 1 mg PO DAILY 12/20/16 Polyethylene Glycol 3350 [Gavilax] 17 gm PO DAILY 12/20/16 Sennosides [Senna] 2 tablet PO HS 12/20/16 Tramadol HCl 50 mg PO DAILY 12/20/16 Vitamin D2 50,000 units PO WEEKLY 12/20/16 Voltaren 2 grams TP QID 12/20/16 pa home with home care
== END 2016-12-22 14:27 | disposition home or self-care (01) | DRG 204 ==
LOC: JER 19:11 → JERBED 12-20 00:13 → UNDOADMIN 12-20 00:35 → JERBED 12-20 00:35 → J4W 12-20 06:52
PROVIDERS: ADMIT Internal Medicine; ATTEND Internal Medicine
DX: R07.81 Pleurodynia (principal); C90.00 Multiple myeloma not having achieved remission; J44.9 Chronic obstructive pulmonary disease, unspecified; D64.9 Anemia, unspecified; M19.90 Unspecified osteoarthritis, unspecified site; S39.012A Strain of muscle, fascia and tendon of lower back, initial encounter; X58.XXXA Exposure to other specified factors, initial encounter; Y93.89 Activity, other specified; Y92.89 Other specified places as the place of occurrence of the external cause; Z98.890 Other specified postprocedural states; Z86.711 Personal history of pulmonary embolism; Z95.2 Presence of prosthetic heart valve
CPT/HCPCS: 36415; 71010-TC; 78582-TC; 80053; 84484; 85025; 85379; 85610; 93005; 93010; 93306-TC; 93970-TC; 97116-GP; 97161-GP; 99284-25; A9539; A9540

== ENCOUNTER 2017-01-12 13:19 | Inpatient (IN) | payer OTHER ==
[2017-01-12 13:50] VITALS: BMI 27.0
[2017-01-12] MEDS ORDERED: SODIUM CHLORIDE 1,000 ML IV ONE (14:00)
--- NOTE | 2017-01-12 14:12 | PDOC ---
History of Present Illness - General History Source: Patient Exam Limitations: No Limitations <Drew Cody - Last Filed: 01/12/17 18:00> - General History Source: Patient Exam Limitations: No Limitations - History of Present Illness Initial Comments: 01/12/17 18:46 The patient is an 81 year old F with a past medical history significant for multiple myeloma, diverticulosis, multiple sclerosis (11/12/16) , and compression fracture s/p lumbar surgery ( 11/18/16) who presents with AMS. As per daughters, the patient is more confused and sleepy than usual. As per daughters, patient had blood work that revealed Calcium level of 14. Patient was prompted to present to the ED for further evaluation. Patient is a poor historia due to mental status. Family note pt has not eaten/drank much the past 2 days due to her weakness. Daughters deny fever, nausea, vomiting, or urinary symptoms. Denies any cough PCP: Dr. Kiran Gutierrez at [facility] for her myeloma. <Makayla Mosley - Last Filed: 01/12/17 18:49> - General Chief Complaint: Altered Mental Status Stated Complaint: HIGH BLOOD SUGAR Time Seen by Provider: 01/12/17 13:51 Past History - Past Medical History Cancer: Yes Cardiac Disorders: Yes COPD: Yes - Immunization History Td Vaccination: Yes (2009) Immunization Up to Date: No - Psycho/Social/Smoking Cessation Hx Anxiety: No Suicidal Ideation: No Smoking History: Never smoked Have you smoked in the past 12 months: No Information on smoking cessation initiated: No Hx Alcohol Use: No Drug/Substance Use Hx: No Substance Use Type: None Hx Substance Use Treatment: No <Drew Cody - Last Filed: 01/12/17 18:00> <Makayla Mosley - Last Filed: 01/12/17 18:49> - Past Medical History Allergies/Adverse Reactions: Allergies Allergy/AdvReac Type Severity Reaction Status Date / Time Latex, Natural Rubber Allergy Verified 01/12/17 13:47 Penicillins Allergy Verified 01/12/17 13:47 Home Medications: Ambulatory Orders NK [No Known Home Medication] 01/12/17 Review of Systems - Review of Systems Able to Perform ROS?: No Comments:: 01/12/17 18:47 Limited due to mental status. <Makayla Mosley - Last Filed: 01/12/17 18:49> *Physical Exam - Vital Signs Last Vital Signs Temp Pulse Resp BP Pulse Ox 99.9 F H 130 H 22 100/60 83 L 01/12/17 13:48 01/12/17 13:48 01/12/17 13:48 01/12/17 13:48 01/12/17 13:48 <Drew Cody - Last Filed: 01/12/17 18:00> - Vital Signs Last Vital Signs Temp Pulse Resp BP Pulse Ox 99.9 F H 93 H 22 81/50 92 L 01/12/17 13:48 01/12/17 16:00 01/12/17 16:00 01/12/17 16:00 01/12/17 16:00 - Physical Exam Comments: 01/12/17 18:47 GENERAL: (+)Somnolent HEAD: Normocephalic, atraumatic. EYES: extraocular movements intact, sclera anicteric, conjunctiva clear. ENT: (+)Dry mucous membranes. Normal voice. NECK: Normal range of motion, supple LUNGS: Breath sounds equal, clear to auscultation bilaterally. No wheezes, no rhonchi, no rales. HEART: (+)Tachycardia, without murmur, rub or gallop. ABDOMEN: (+)Mild lower abdominal tenderness. Soft, normoactive bowel sounds. No guarding, no rebound.No CVA tenderness EXTREMITIES: Normal range of motion, no edema. No clubbing or cyanosis. No cords , erythema, or tenderness. BACK: no focal midline tenderness, mid thoracic scar non erythematous, no discharge. NEUROLOGICAL: No facial asymmetry, Normal speech, SKIN: Warm, Dry, normal turgor <Makayla Mosley - Last Filed: 01/12/17 18:49> Heart Score/ECG Review - ECG Impressions Comment:: 01/12/17 15:15 Twelve-lead EKG was performed and reviewed by me. There is normal sinus rhythm with a rate of 101 PVCs present The axis is normal. The intervals are normal. There is normal R wave progression No changes ST changes suggestive of acute ischemia <Drew Cody - Last Filed: 01/12/17 18:00> ED Treatment Course - LABORATORY CBC & Chemistry Diagram: 01/12/17 14:30 01/12/17 14:30 - RADIOLOGY Radiology Studies Ordered: Category Date Time Status CHEST X-RAY PORTABLE* [RAD] Stat Radiology 01/12/17 13:56 Ordered <Drew Cody - Last Filed: 01/12/17 18:00> - LABORATORY CBC & Chemistry Diagram: 01/12/17 14:30 01/12/17 14:30 - ADDITIONAL ORDERS Additional order review: Laboratory Results 01/12/17 01/12/17 01/12/17 15:20 15:00 14:30 INR VBG pH 7.52 H POC VBG pCO2 40.5 POC VBG pO2 59.5 H Mixed VBG HCO3 32.9 H Sodium Potassium Chloride Carbon Dioxide Anion Gap BUN Creatinine Creat Clearance w eGFR Random Glucose Lactic Acid 1.4 Calcium Magnesium Total Bilirubin AST ALT Alkaline Phosphatase Creatine Kinase Troponin I Total Protein Albumin Lipase TSH Urine Color Urine Appearance Urine pH Urine Protein Urine Glucose (UA) Urine Ketones Urine Blood Urine Nitrite Urine Bilirubin Urine Urobilinogen Ur Leukocyte Esterase Urine RBC Urine WBC Ur Epithelial Cells Amorphous Urates Acetone, Qual Trace H Blood Type Antibody Screen 01/12/17 01/12/17 01/12/17 14:30 14:30 14:30 INR 1.04 VBG pH POC VBG pCO2 POC VBG pO2 Mixed VBG HCO3 Sodium 135 L Potassium 3.6 Chloride 93 L D Carbon Dioxide 32 Anion Gap 10 BUN 47 H D Creatinine 2.0 H D Creat Clearance w eGFR 23.85 Random Glucose 85 Lactic Acid Calcium 16.8 H* D Magnesium 2.2 D Total Bilirubin 0.6 D AST 37 ALT 14 D Alkaline Phosphatase 73 Creatine Kinase 13 L Troponin I 0.03 Total Protein 6.9 Albumin 2.7 L Lipase 61 L TSH 1.28 Urine Color Urine Appearance Urine pH Urine Protein Urine Glucose (UA) Urine Ketones Urine Blood Urine Nitrite Urine Bilirubin Urine Urobilinogen Ur Leukocyte Esterase Urine RBC Urine WBC Ur Epithelial Cells Amorphous Urates Acetone, Qual Blood Type O POSITIVE Antibody Screen Negative 01/12/17 14:15 INR VBG pH POC VBG pCO2 POC VBG pO2 Mixed VBG HCO3 Sodium Potassium Chloride Carbon Dioxide Anion Gap BUN Creatinine Creat Clearance w eGFR Random Glucose Lactic Acid Calcium Magnesium Total Bilirubin AST ALT Alkaline Phosphatase Creatine Kinase Troponin I Total Protein Albumin Lipase TSH Urine Color Dkyellow Urine Appearance Turbid Urine pH 5.0 Urine Protein 1+ H Urine Glucose (UA) Negative Urine Ketones Negative Urine Blood Negative Urine Nitrite Negative Urine Bilirubin Negative Urine Urobilinogen Negative Ur Leukocyte Esterase Negative Urine RBC 7 Urine WBC 1 Ur Epithelial Cells Rare Amorphous Urates Many Acetone, Qual Blood Type Antibody Screen 01/12/17 14:30 RBC 3.01 L MCV 95.2 MCHC 33.3 RDW 16.6 H MPV 8.2 D Neutrophils % Y Lymphocytes % Y - Medications Given in the ED: ED Medications Discontinued Medications Generic Name Dose Route Start Last Admin Trade Name Freq PRN Reason Stop Dose Admin Zoledronic Acid 4 mg/ Sodium 105 mls @ 100 mls/hr 01/12/17 17:10 01/12/17 17:32 Chloride IVPB 01/12/17 18:12 Not Given ONCE ONE <Makayla Mosley - Last Filed: 01/12/17 18:49> Medical Decision Making - Medical Decision Making 01/12/17 15:10 81y F hx of diverticulosis, COPD, compression fx s/p lumbar surgery (11/18/16), multiple myeloma, presents with AMS/generalized weakness that has been worsening for several days. PEr family the pt had blood work showing a CA of 14. No fever/chills, increased cough, n/v, abd pain, dysuriafoul smelling urine /diarrhea. History limited due to the pts mental status most history obtained from the daughters. 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 Soriano A portion of this note was documented by scribe services under my direction. I have reviewed the details of the note, within reason, and agree with the documentation with the following case summary and management plan written by me 01/12/17 17:19 pts blood work reviewed noted for severe hypercalcemia with acute renal failure suspect her renal fialure / dehydration is a significant factor in her hypercalemia will agresivel hydrate will give pt 4u/kg of calcitonin will admit pt for further management 01/12/17 18:[address] de jesus agreed with admission for further management stable for tele Case discussed in detail with admitting physician including history, physical exam and ancillary studies. Admitting physician has assumed care for the patient, will follow all pending diagnostics and will complete the evaluation and treatment. CRITICAL CARE DOCUMENTATION: I spent ~35 minutes of Critical Care time, excluding separately billable procedures, involving high complexity decision making to assess, manipulate and support vital system function(s) to treat single or multiple vital organ system failure and/or to prevent further life threatening deterioration of the patient' s condition. <Drew Cody - Last Filed: 01/12/17 18:00> - Medical Decision Making 01/12/17 17:38 A call was placed to Dr. Gregorio at his service. Awaiting on a call back. 01/12/17 18:04 A call back was received from Dr. Small, one of the physicians of [facility], who noted that the group is being covered by the hospitalist after [address] De Jesus accepted the case. <Makayla Mosley - Last Filed: 01/12/17 18:49> *DC/Admit/Observation/Transfer - Discharge Dispostion Admit: Yes <Drew Cody - Last Filed: 01/12/17 18:00> - Attestations Scribe Attestion: 01/12/17 18:49 Documentation prepared by GURJIT Islas, acting as hospital medical biller for Drew Cody MD. <Makayla Mosley - Last Filed: 01/12/17 18:49> Diagnosis at time of Disposition: Hypercalcemia Multiple myeloma Qualifiers: Multiple myeloma remission status: unspecified Qualified Code(s): C90.00 - Multiple myeloma not having achieved remission Acute renal failure Qualifiers: Acute renal failure type: unspecified Qualified Code(s): N17.9 - Acute kidney failure, unspecified
[2017-01-12 14:47] LABS: MCH 31.7 pg (25.7-33.7); MCHC 33.3 g/dl (32.0-36.0); MEAN CELL VOLUME 95.2 fl (80-96); MEAN PLT VOLUME 8.2 fl (7.5-11.1); PLATELET COUNT 153 K/MM3 (134-434); RDW 16.6 % (11.6-15.6); WHITE BLOOD COUNT 13.1 K/mm3 (4.0-10.0)
[2017-01-12 14:58] LABS: ALBUMIN 2.7 g/dl (3.4-5.0); ALK PHOS 73 U/L (45-117); ANION GAP 10 (8-16); BILIRUBIN,TOTAL 0.6 mg/dL (0.2-1.0); CO2 32 mmol/L (21-32); CPK 13 IU/L (26-192); GLUCOSE,RANDOM 85 mg/dL (74-106); MAGNESIUM 2.2 mg/dL (1.8-2.4); SGOT/AST 37 U/L (15-37); SGPT/ALT 14 U/L (12-78); TOT PROT 6.9 g/dl (6.4-8.2)
[2017-01-12 15:02] LABS: URINE APPEARANCE TURBID; URINE BILIRUBIN NEGATIVE (NEGATIVE); URINE BLOOD NEGATIVE (NEGATIVE); URINE COLOR DKYELLOW; URINE GLUCOSE (UA) NEGATIVE (NEGATIVE); URINE KETONE NEGATIVE (NEGATIVE); URINE LEUK ESTERASE NEGATIVE (NEGATIVE); URINE NITRITE NEGATIVE (NEGATIVE); URINE UROBILINOGEN NEGATIVE mg/dL (0.2-1.0)
--- NOTE | 2017-01-12 15:02 | EKG ---
Test Reason : Blood Pressure : / mmHG Vent. Rate : 101 BPM Atrial Rate : 101 BPM P-R Int : 152 ms QRS Dur : 090 ms QT Int : 330 ms P-R-T Axes : 070 012 031 degrees QTc Int : 427 ms SINUS TACHYCARDIA WITH OCCASIONAL PREMATURE VENTRICULAR COMPLEXES OTHERWISE NORMAL ECG WHEN COMPARED WITH ECG OF 20-DEC-2016 00:00, PREMATURE VENTRICULAR COMPLEXES ARE NOW PRESENT Confirmed by HUONG GUZMAN MD ([id number]) on 01/12/2017 3:02:45 PM Referred By: Confirmed By:HUONG GUZMAN MD
[2017-01-12 15:04] LABS: VENOUS BLOOD GAS HCO3 32.9 meq/L (19-25); VENOUS PH 7.52 (7.32-7.42)
[2017-01-12 15:07] LABS: INR 1.04 (0.82-1.09); PROTHROMBIN TIME (PATIENT) 11.4 SEC (9.98-11.88); THYROID STIMULATING HORMONE 1.28 uIU/ml (0.358-3.74); TROPONIN I 0.03 ng/ml (0.00-0.05)
[2017-01-12 15:35] LABS: URINE PROTEIN 1+ (NEGATIVE)
[2017-01-12 15:45] LABS: URINE RBC 7 /hpf (0-3); URINE WBC 1 /hpf (3-5)
[2017-01-12 16:00] LABS: CALCIUM 16.8 mg/dL (8.5-10.1)
[2017-01-12] MEDS ORDERED: ZOLEDRONIC ACID 4 MG in SODIUM CHLORIDE 100 ML IVPB ONE ×2 (17:10→22:54)
[2017-01-12] MEDS ORDERED: CALCITONIN - SALMON SYNTHETIC 400 UNIT/2 ML VIAL IM ONE (17:14)
[2017-01-12] MEDS ORDERED: CALCITONIN - SALMON SYNTHETIC 400 UNIT/2 ML VIAL IM SCH (17:15)
[2017-01-12] MEDS ORDERED: SODIUM CHLORIDE 1,000 ML IV STA ×2 (20:22→22:48)
[2017-01-12 21:18] LABS: HYPOCHROMIA 1+; PLATELET COMMENT2 NO CLUMPING NOTED; PLATELET COMMENT3 NO CLOTTING DETECTED
[2017-01-12 21:19] LABS: ANISOCYTOSIS 1+
--- NOTE | 2017-01-12 21:55 | PN ---
Teaching Attending Note Name of Resident: Florecita Nelson ATTENDING PHYSICIAN STATEMENT I saw and evaluated the patient. I reviewed the resident's note and discussed the case with the resident. I agree with the resident's findings and plan as documented. SUBJECTIVE: 81 yo female recently diagnosed with multiple myeloma and presumed pathologic lumbar compression fracture s/p repair 10/2016 presents to the ED with complaint of altered mental status and found to be in hypercalcemic crisis complicated by SHANIA. OBJECTIVE: - Vital Signs Temp: 99.9F BP: 80-100/60s HR: 90-100s RR: 20-22 spO2: 92-97% 4L NC - Physical Examination General: Lethargic, non-cooperative with examination HEENT: Nontraumatic, dry mucous membranes Neck: No JVD or thyromegaly CV: RRR, S1 and S2 Pulm: CTA anteriorly Abd: Nondistended, BS hypoactive Ext: Symmetrically appearing, nonedematous - Imaging CXR reviewed, unremarkable for developing infiltrate, lytic bone lesions - Labs BUN/Cr: 47/2.0 K+: 3.6 ; Ca++ (Corrected): 17.7 ; Na+: 135 H/H: 9.5/28.6 Plt: 153 prior to IVF hydration WBC 13.1 UA 1+ Protein, amorphous urates, 7 RBCs Troponin, TSH, Lactate unremarkable ASSESSMENT AND PLAN: - Neurologic 1.) Metabolic Encephalopathy : Likely related to severe hypercalcemia but could be masking underlying infection or Acute PE? : Monitor mental status closely; NPO for now until mental status improves 2.) Lumbar Compression Fx s/p repair ( Presumed pathologic etiology ) : Will avoid pain medications at this time given encephalopathy above 3.) ? Hx Multiple Sclerosis (Daughter denies diagnosis) - Cardiovascular 1.) Hypotension 2.) Sinus Tachycardia : Attributing to hypercalcemia at this time but other etiologies could be attributing as mentioned above - Pulmonary 1.) Acute Hypoxic Respiratory Failure : Supplemental O2 to maintain spO2 >96% : Consider r/o PE if respiratory status does not improve with improving hypercalcemia and mental status : Check ABG and calculate A-a gradient if O2 demand does not improve; Renal failure precludes CT angio; Consider LE dopplers and V/Q scan - Renal 1.) SHANIA : In setting of presumed hypovolemia, however, untreated myeloma likely contributory : Check renal ultrasound, urine electrolytes, spot alb:creat, urine eos : IVF hydration with NS bolus ( To complete 3L total IVF's from admission ) and continuous; Strict I/Os w/ goal urine output ~ 3L/day : Trend renal function ; If no improvement in 12-24h, would consult Nephrology - Gastrointestinal 1.) Presumed constipation in setting of Hypercalcemia : Start bowel regimen w/ colace BID and add laxative as indicated; anticipate resolution w/ improved calcium levels 2.) Hx Diverticulosis - Endocrine 1.) Hypercalcemia Crisis : Likely secondary to known malignancy ( Multiple Myeloma ) : IVF hydration as above ; Start Lasix 40mg IV BID with goal output 3L /day ( May need to titrate up given acute renal failure ) : IM Calcitonin given in ED ; Will continue Calcitonin BID and will additionally give Zometa : Monitor Ca, Phos, Mg, K q4h - Hematology/Oncology 1.) Multiple Myeloma : Dx recently ( 10/2016 ); Pt. had refused treatment prior to admission : Would reach out to patient's Hem/Onc in AM to discuss plan of care 2.) Leukocytosis : Presumed reactive in setting of above ; Trend and consider infectious disease w/u as indicated 3.) Acute on Chronic Normocytic Anemia : In setting of known MM ; Obtain type and screen, transfuse if Hgb < 7 - Infectious Disease 1.) SIRS on admission without obvious source of infection at this time : CXR and UA unremarkable for acute infectious process - PPx / Diet / Activity 1.) DVT PPx w/ Heparin SC until renal function stabilizes and able to start Lovenox ; mechanical ppx to be started additionally 2.) NPO pending improved encephalopathy 3.) Early ambulation w/ assistance when able in order to prevent refractory hypercalcemia 2/2 physical immobility DISPOSITION: Admit as inpatient to ICU on cardiac telemetry given high-risk of arrhythmia and rapid clinical deterioration. Consult Pulm/CC for acute management while in the ICU ; Anticipate step-down in 24h if hypercalcemia and/or sequelae improve w/ above management. Patient is considered FULL CODE at this time pending revisiting the subject by primary attending tomorrow morning.
[2017-01-12 22:59] LABS: ANION GAP 7 (8-16); CALCIUM 13.7 mg/dL (8.5-10.1); CO2 31 mmol/L (21-32); CREATININE 1.6 mg/dL (0.55-1.02); GLUCOSE,RANDOM 97 mg/dL (74-106); PHOSPHOROUS 3.2 mg/dL (2.5-4.9)
--- NOTE | 2017-01-12 23:08 | HP ---
CHIEF COMPLAINT: AMS PCP: Dr. Potter Oncologist: Dr. Gutierrez at [facility] HISTORY OF PRESENT ILLNESS: 81yo F with PMH of Multiple Myeloma diagnosed 10/2016 presenting with AMS. Pt is a poor historian 2/2 AMS, history obtained from daughter at bedside. (Very attentive family present at bedside around the clock.) Pt has had increasing confusion and lethargy for a couple weeks now, and she has not eaten/drank much for the last 2 days 2/2 weakness, lethargy. Daughter reports pt has also c/o of Right hip pain. Daughter denies fever, cough, vomiting. Pt diagnosed with MM in 10/2016, and is s/p lumbar surgery for a pathologic compression fx to T12 in 10/2016. Pt only saw her Oncologist (Dr. Gutierrez) once, as she was not interested in Western medicine treatments. She is now amenable to a bisphosphonate. ER course was notable for: (1) Ca++ 16.8 (2) Calcitonin 200u IM (at 4u/kg) (3) NS 1L bolus x 2 PAST MEDICAL HISTORY: diverticulosis Pt does not have Multiple Sclerosis per daughter. PAST SURGICAL HISTORY: lumbar surgery for pathologic compression fx 10/2016 Social History: Smoking: never smoked Alcohol: none Drugs: none Family History: non-contributory Allergies Latex, Natural Rubber Allergy (Verified 01/12/17 13:47) Penicillins Allergy (Verified 01/12/17 13:47) HOME MEDICATIONS: Home Medications Medication Instructions Recorded NK [No Known Home Medication] 01/12/17 REVIEW OF SYSTEMS unable to assess PHYSICAL EXAMINATION Vital Signs - 24 hr 01/12/17 01/12/17 18:30 21:22 Pulse Rate [ 90 Apical] Respiratory 20 Rate Blood Pressure 105/68 [Left Arm] O2 Sat by Pulse 98 97 Oximetry (%) GENERAL: Somnolent, moaning/crying at times not related to stimulation. HEAD: Normal with no signs of trauma. EYES: Sclera anicteric, conjunctiva clear. EARS, NOSE, THROAT: Dry mucous membranes. NECK: Supple. Trachea midline. No thyromegaly. LUNGS: Breath sounds equal, clear to auscultation bilaterally. No wheezes, and no crackles. No accessory muscle use. HEART: Tachycardiac. No murmur, rub or gallop appreciated. ABDOMEN: Lower abdomen mild tenderness to palpation, RLQ>LLQ. Soft, not distended, no guarding, no rebound, no masses. LOWER EXTREMITIES: Well-perfused. No calf tenderness. No peripheral edema. NEUROLOGICAL: No facial asymmetry. SKIN: Warm, dry, normal turgor, no rashes or lesions noted. Laboratory Last Values WBC 13.1 K/mm3 (4.0-10.0) H D 01/12/17 14:30 RBC 3.01 M/mm3 (3.60-5.2) L 01/12/17 14:30 Hgb 9.5 GM/dL (10.7-15.3) L 01/12/17 14:30 Hct 28.6 % (32.4-45.2) L 01/12/17 14:30 MCV 95.2 fl (80-96) 01/12/17 14:30 MCH 31.7 pg (25.7-33.7) 01/12/17 14:30 MCHC 33.3 g/dl (32.0-36.0) 01/12/17 14:30 RDW 16.6 % (11.6-15.6) H 01/12/17 14:30 Plt Count 153 K/MM3 (134-434) D 01/12/17 14:30 MPV 8.2 fl (7.5-11.1) D 01/12/17 14:30 Neutrophils % Y 01/12/17 14:30 Neutrophils % (Manual) 69 % (42.8-82.8) 01/12/17 14:30 Band Neuts % (Manual) 2 % (0-10) 01/12/17 14:30 Lymphocytes % Y 01/12/17 14:30 Lymphocytes % (Manual) 20 % (8-40) 01/12/17 14:30 Monocytes % (Manual) 9 % (3.8-10.2) 01/12/17 14:30 Hypochromia 1+ 01/12/17 14:30 Platelet Comment Few large plts 01/12/17 14:30 Platelet Comment No clumping noted 01/12/17 14:30 Anisocytosis 1+ 01/12/17 14:30 INR 1.04 (0.82-1.09) 01/12/17 14:30 VBG pH 7.52 (7.32-7.42) H 01/12/17 15:00 POC VBG pCO2 40.5 mmHg (38-52) 01/12/17 15:00 POC VBG pO2 59.5 mmHg (28-48) H 01/12/17 15:00 Mixed VBG HCO3 32.9 meq/L (19-25) H 01/12/17 15:00 Sodium 135 mmol/L (136-145) L 01/12/17 14:30 Potassium 3.6 mmol/L (3.5-5.1) 01/12/17 14:30 Chloride 93 mmol/L (98-107) L D 01/12/17 14:30 Carbon Dioxide 32 mmol/L (21-32) 01/12/17 14:30 Anion Gap 10 (8-16) 01/12/17 14:30 BUN 47 mg/dL (7-18) H D 01/12/17 14:30 Creatinine 2.0 mg/dL (0.55-1.02) H D 01/12/17 14:30 Creat Clearance w eGFR 23.85 (>60) 01/12/17 14:30 Random Glucose 85 mg/dL (74-106) 01/12/17 14:30 Lactic Acid 1.4 mmol/L (0.4-2.0) 01/12/17 15:20 Calcium 16.8 mg/dL (8.5-10.1) H* D 01/12/17 14:30 Magnesium 2.2 mg/dL (1.8-2.4) D 01/12/17 14:30 Total Bilirubin 0.6 mg/dL (0.2-1.0) D 01/12/17 14:30 AST 37 U/L (15-37) 01/12/17 14:30 ALT 14 U/L (12-78) D 01/12/17 14:30 Alkaline Phosphatase 73 U/L (45-117) 01/12/17 14:30 Creatine Kinase 13 IU/L (26-192) L 01/12/17 14:30 Troponin I 0.03 ng/ml (0.00-0.05) 01/12/17 14:30 Total Protein 6.9 g/dl (6.4-8.2) 01/12/17 14:30 Albumin 2.7 g/dl (3.4-5.0) L 01/12/17 14:30 Lipase 61 U/L (73-393) L 01/12/17 14:30 TSH 1.28 uIU/ml (0.358-3.74) 01/12/17 14:30 Urine Color Dkyellow 01/12/17 14:15 Urine Appearance Turbid 01/12/17 14:15 Urine pH 5.0 (5.0-8.0) 01/12/17 14:15 Ur Specific [place] 1.020 (1.005-1.025) 01/12/17 14:15 Urine Protein 1+ (NEGATIVE) H 01/12/17 14:15 Urine Glucose (UA) Negative (NEGATIVE) 01/12/17 14:15 Urine Ketones Negative (NEGATIVE) 01/12/17 14:15 Urine Blood Negative (NEGATIVE) 01/12/17 14:15 Urine Nitrite Negative (NEGATIVE) 01/12/17 14:15 Urine Bilirubin Negative (NEGATIVE) 01/12/17 14:15 Urine Urobilinogen Negative mg/dL (0.2-1.0) 01/12/17 14:15 Ur Leukocyte Esterase Negative (NEGATIVE) 01/12/17 14:15 Urine RBC 7 /hpf (0-3) 01/12/17 14:15 Urine WBC 1 /hpf (3-5) 01/12/17 14:15 Ur Epithelial Cells Rare /hpf (FEW) 01/12/17 14:15 Amorphous Urates Many /hpf (NONE SEEN) 01/12/17 14:15 Acetone, Qual Trace (NEGATIVE) H 01/12/17 14:30 Blood Type O POSITIVE 01/12/17 14:30 Antibody Screen Negative 01/12/17 14:30 IMAGIN01/12/17 CXR revealing no acute pulmonary disease. 01/12/17 EKG reveals tachycardia with occasional PVCs. ASSESSMENT/PLAN: 81yo F with PMH of MM diagnosed 10/2016 presenting with AMS, found to be in hypercalcemic crisis complicated by SHANIA, adm to ICU. 1) hypercalcemia - likely 2/2 MM vs SHANIA vs dehydration vs hyperparathyroidism - NS 1 L bolus x 2, followed by NS @ 150 ml/hr - Lasix 40mg IV BID, with goal output of 3L - strict I & O's - Zometa IV 4mg - cont. Calcitonin 4u/kg (200u) IM BID - cont. to trend 2) SHANIA - likely 2/2 MM vs dehydration - f/u renal U/S, Urine electrolytes, Urine Protein:Cr - monitor closely with rehydration and diuresis (for hypercalemia) 3) acute on chronic normocytic anemia - likely 2/2 MM - monitor closely with rehydration - consider transfusion of 1U PRBCs if Hbg >7 4) leukocytosis - likely reactive - f/u blood cultures - cont. to trend 5) MM - day team can reach out to Dr. Gutierrez for plan ([phone] ?) 6) Advanced Directives - day team can approach family - for now pt will be considered Full Code 6) FEN - Fluids: NS @ 150 ml/hr - Electrolytes: slight hyponatremia, cont. to monitor - Nutrition: npo 7) prophylaxis - Heparin 5000u SQ TID for DVT prophylaxis - consider Lovenox when renal function stabilizes Visit type - Emergency Visit Emergency Visit: Yes ED Registration Date: 01/12/17 Care time: The patient presented to the Emergency Department on the above date and was hospitalized for further evaluation of their emergent condition. - New Patient This patient is new to me today: Yes Date on this admission: 01/13/17 - Critical Care Critical Care patient: No
[2017-01-13] MEDS: MUPIROCIN 2% TOPICAL OINTMENT FOR DECOLONIZATION NS SCH ×3 (00:12→21:05)
[2017-01-13] MEDS: CHLORHEXIDINE GLUCONATE 4% CLEANSER FOR DECOLONIZATION TP SCH ×2 (00:13→21:05)
[2017-01-13] MEDS: SODIUM CHLORIDE 1,000 ML IV SCH ×2 (04:48→21:06)
[2017-01-13 06:17] LABS: MAGNESIUM 1.8 mg/dL (1.8-2.4); PHOSPHOROUS 2.6 mg/dL (2.5-4.9)
[2017-01-13] MEDS: HEPARIN NA (PORCINE) 5,000 UNITS/ML 1ML VIAL SQ SCH ×4 (06:39→21:05)
[2017-01-13 06:48] LABS: MCH 32.3 pg (25.7-33.7); MCHC 33.7 g/dl (32.0-36.0); MEAN CELL VOLUME 95.9 fl (80-96); MEAN PLT VOLUME 7.5 fl (7.5-11.1); PLATELET COUNT 118 K/MM3 (134-434); RDW 16.2 % (11.6-15.6); WHITE BLOOD COUNT 9.6 K/mm3 (4.0-10.0)
[2017-01-13] MEDS ORDERED: FUROSEMIDE 40 MG/4 ML INJECTABLE VIAL ONE (07:04)
[2017-01-13] MEDS ORDERED: HEPARIN NA (PORCINE) 5,000 UNITS/ML 1ML VIAL ONE (07:04)
[2017-01-13] MEDS: FUROSEMIDE 40 MG/4 ML INJECTABLE VIAL IVPUSH SCH ×2 (07:08→14:56)
[2017-01-13 07:19] LABS: ALBUMIN 2.2 g/dl (3.4-5.0); ANION GAP 9 (8-16); CALCIUM 11.7 mg/dL (8.5-10.1); CO2 26 mmol/L (21-32); GLUCOSE,RANDOM 80 mg/dL (74-106)
[2017-01-13 07:22] LABS: ALK PHOS 56 U/L (45-117); BILIRUBIN,TOTAL 0.3 mg/dL (0.2-1.0); CREATININE 1.4 mg/dL (0.55-1.02); SGOT/AST 35 U/L (15-37); SGPT/ALT 11 U/L (12-78); TOT PROT 5.6 g/dl (6.4-8.2)
[2017-01-13] MEDS ORDERED: CALCITONIN - SALMON SYNTHETIC 400 UNIT/2 ML VIAL IM SCH (10:00)
--- NOTE | 2017-01-13 11:24 | PN ---
Progress Note, Physician Chief Complaint: Unable to obtain - Current Medication List Current Medications: Active Medications Acetaminophen (Ofirmev Injection -) 1,000 mg IVPB Q6H PRN PRN Reason: FEVER OR PAIN Stop: 01/14/17 05:25 Calcitonin (Miacalcin Injection -) 200 unit IM BID [facility] Stop: 01/13/17 22:01 Chlorhexidine Gluconate (Hibiclens For Decolonization -) 1 applic TP HS [facility] Last Admin: 01/13/17 00:13 Dose: 1 applic Furosemide (Lasix Injection -) 40 mg IVPUSH BID@0600,1400 [facility] Last Admin: 01/13/17 07:08 Dose: 40 mg Heparin Sodium (Porcine) (Heparin -) 5,000 unit SQ TID [facility] Last Admin: 01/13/17 07:08 Dose: 5,000 unit Sodium Chloride (Normal Saline -) 1,000 mls @ 150 mls/hr IV ASDIR [facility] Last Admin: 01/13/17 04:48 Dose: 150 mls/hr Mupirocin (Bactroban Ointment (For Decolonization) -) 1 applic NS BID [facility] Stop: 01/17/17 21:59 Last Admin: 01/13/17 00:12 Dose: 1 applic - Objective Vital Signs: Vital Signs Temperature 37.7 C H 01/12/17 13:48 Pulse Rate 93 H 01/13/17 10:35 Respiratory Rate 16 01/13/17 10:35 Blood Pressure 110/60 01/13/17 10:35 O2 Sat by Pulse Oximetry (%) 98 01/13/17 10:35 Constitutional: Yes: Well Nourished, Other (lethargic but arousable) Cardiovascular: Yes: Regular Rate and Rhythm. No: Gallop, Murmur, Rub Respiratory: Yes: Regular, CTA Bilaterally. No: Rales, Rhonchi, Wheezes Gastrointestinal: Yes: Normal Bowel Sounds, Soft. No: Distention, Tenderness Extremities: Yes: WNL Edema: No Labs: CBC, BMP 01/13/17 06:31 01/13/17 06:31 INR, PTT INR 1.04 (0.82-1.09) 01/12/17 14:30 Problem List - Problems (1) Multiple myeloma Assessment/Plan: -patient refused treatment in the past -now presenting with hypercalcemia, ARF, and AMS -long d/w daughters about expectation including hospice -will consult hematology to discuss options Code(s): C90.00 - MULTIPLE MYELOMA NOT HAVING ACHIEVED REMISSION Qualifiers: Multiple myeloma remission status: not in remission Qualified Code(s ): C90.00 - Multiple myeloma not having achieved remission (2) Acute renal failure Assessment/Plan: -secondary to dehydration, possible MM -improved with hydration -continue -nephrology consulted Code(s): N17.9 - ACUTE KIDNEY FAILURE, UNSPECIFIED Qualifiers: Acute renal failure type: unspecified Qualified Code(s): N17.9 - Acute kidney failure, unspecified (3) Hypercalcemia Assessment/Plan: -received zometa -receiving calcitonin -check calcium in am, evaluate if need to continue calcitonin -continue lasix and IVF -nephrology consulted Code(s): E83.52 - HYPERCALCEMIA
[2017-01-13 12:41] LABS: METAMYELOCYTE 7 % (0-2); MYELOCYTE 2 % (0-2)
[2017-01-13 12:42] LABS: PLATELET ESTIMATE DECREASED
[2017-01-13] MEDS ORDERED: DEXAMETHASONE SOD PHOSPHATE 10 MG/1 ML VIAL IVPB SCH (15:30)
[2017-01-13] MEDS: ACETAMINOPHEN 1000 MG/100 ML VIAL (NON FORMULARY) IVPB PRN ×2 (16:11→23:13)
[2017-01-13] MEDS: DEXAMETHASONE SOD PHOSPHATE 10 MG/1 ML VIAL IVPB SCH (16:39)
--- NOTE | 2017-01-13 16:47 | CONSULT ---
Consult Consult Specialty:: Nephrology Reason for Consultation:: SHANIA and hypercalcemia - History of Present Illness Chief Complaint: worsening of mental status History of Present Illness: Pt is an 81 year old female with pmhx of multiple myeloma (diagnoses this year and not treated yet), diverticular disease, and compression fracture who presents to the ER with altered mental status. She was found to be in acute renal failure and found to be hypercalcemic. She is arousable but not able to give much history. Her family are at bedside and helped with history. She denies shortness of breath. She was given fluids and a bisphosphonate in the ER. Her calcium levels and renal function are improving. - History Source History Provided By: Family Member, Medical Record Limitations to Obtaining History: Clinical Condition - Past Medical History Cardio/Vascular: Yes: Hyperlipdemia Pulmonary: Yes: COPD Heme/Onc: Yes: Other (multiple myeloma) Musculoskeletal: Yes: Osteoarthritis - Alcohol/Substance Use Hx Alcohol Use: No History of Substance Use: reports: None - Smoking History Smoking history: Never smoked Have you smoked in the past 12 months: No Home Medications - Allergies Allergies/Adverse Reactions: Allergies Allergy/AdvReac Type Severity Reaction Status Date / Time Latex, Natural Rubber Allergy Verified 01/12/17 13:47 Penicillins Allergy Verified 01/12/17 13:47 - Home Medications Home Medications: Ambulatory Orders NK [No Known Home Medication] 01/12/17 Family Disease History - Family Disease History Family Disease History: Diabetes: Mother, CA: Sister (Breast CA), Other: Father (COPD) Review of Systems Unable to obtain ROS, reason: pt is lethargic Physical Exam Vital Signs: Vital Signs Temperature 98.3 F 01/13/17 14:00 Pulse Rate 105 H 01/13/17 14:00 Respiratory Rate 20 01/13/17 14:00 Blood Pressure 96/60 01/13/17 14:00 O2 Sat by Pulse Oximetry (%) 98 01/13/17 11:31 Constitutional: Yes: Calm Eyes: Yes: Conjunctiva Clear HENT: Yes: Atraumatic Cardiovascular: Yes: S1, S2 Respiratory: Yes: CTA Bilaterally, On Nasal O2 Gastrointestinal: Yes: Soft Renal/: Yes: Incontinence Musculoskeletal: Yes: Muscle Weakness Edema: No Neurological: Yes: Lethargy Labs: CBC, BMP 01/13/17 06:31 01/13/17 06:31 Laboratory Tests 01/12/17 01/12/17 01/12/17 14:15 14:30 14:30 WBC Hgb 9.5 L Sodium 135 L Potassium Chloride Carbon Dioxide BUN Creatinine 2.0 H D Calcium 16.8 H* D Urine Color Dkyellow Urine Appearance Turbid Urine pH 5.0 Ur Specific [place] 1.020 Urine Protein 1+ H Urine Glucose (UA) Negative Urine Ketones Negative Urine Blood Negative Urine Nitrite Negative Urine Bilirubin Negative Urine Urobilinogen Negative Ur Leukocyte Esterase Negative Ur Epithelial Cells Rare Amorphous Urates Many Urine Eosinophils 01/12/17 01/13/17 01/13/17 22:25 04:50 06:31 WBC 9.6 Hgb 7.5 L D Sodium Potassium 3.2 L Chloride Carbon Dioxide BUN Creatinine 1.6 H Calcium 13.7 H Urine Color Urine Appearance Urine pH Ur Specific [place] Urine Protein Urine Glucose (UA) Urine Ketones Urine Blood Urine Nitrite Urine Bilirubin Urine Urobilinogen Ur Leukocyte Esterase Ur Epithelial Cells Amorphous Urates Urine Eosinophils Pending 01/13/17 06:31 WBC Hgb Sodium 143 Potassium 3.1 L Chloride 108 H Carbon Dioxide 26 BUN 38 H Creatinine 1.4 H Calcium 11.7 H Urine Color Urine Appearance Urine pH Ur Specific [place] Urine Protein Urine Glucose (UA) Urine Ketones Urine Blood Urine Nitrite Urine Bilirubin Urine Urobilinogen Ur Leukocyte Esterase Ur Epithelial Cells Amorphous Urates Urine Eosinophils Imaging - Results Chest X-ray: Report Reviewed Ultrasound: Report Reviewed (echogenic kidneys) Problem List - Problems (1) Acute renal failure Code(s): N17.9 - ACUTE KIDNEY FAILURE, UNSPECIFIED Qualifiers: Acute renal failure type: unspecified Qualified Code(s): N17.9 - Acute kidney failure, unspecified (2) Hypercalcemia Code(s): E83.52 - HYPERCALCEMIA (3) Multiple myeloma Code(s): C90.00 - MULTIPLE MYELOMA NOT HAVING ACHIEVED REMISSION Qualifiers: Multiple myeloma remission status: not in remission Qualified Code(s ): C90.00 - Multiple myeloma not having achieved remission Assessment/Plan Current Medications Generic Name Dose Route Start Last Admin Trade Name Freq PRN Reason Stop Dose Admin Acetaminophen 1,000 mg 01/13/17 11:24 01/13/17 16:11 Ofirmev Injection - IVPB 01/14/17 05:25 1,000 mg Q6H PRN Administration FEVER OR PAIN Calcitonin 200 unit 01/13/17 11:00 Miacalcin Injection - IM 01/13/17 22:01 BID [facility] Chlorhexidine Gluconate 1 applic 01/12/17 22:00 01/13/17 00:13 Hibiclens For Decolonization - TP 1 applic HS TOMÁS Administration Dexamethasone Sodium Phosphate 20 mg 01/13/17 15:30 01/13/17 16:39 Decadron Injection - IVPB 01/16/17 12:00 20 mg DAILY TOMÁS Administration Furosemide 40 mg 01/13/17 06:00 01/13/17 14:56 Lasix Injection - IVPUSH 40 mg BID@0600,1400 TOMÁS Administration Heparin Sodium (Porcine) 5,000 unit 01/12/17 23:00 01/13/17 14:58 Heparin - SQ 5,000 unit TID TOMÁS Administration Sodium Chloride 1,000 mls @ 150 mls/hr 01/12/17 23:45 01/13/17 04:48 Normal Saline - IV 150 mls/hr ASDIR TOMÁS Administration Mupirocin 1 applic 01/12/17 22:00 01/13/17 11:52 Bactroban Ointment (For Decolonization) - NS 01/17/17 21:59 Not Given BID [facility] Impression 1. Hypercalcemia improving 2. SHANIA 3. anemia 4. hypokalemia 5. multiple myeloma Plan - calcium is improving - will check pth level however it is likely secondary to malignancy - cont with fluids and lasix - replace potassium - check mag level - she already received zoledronic acid and calcitonin - will follow - discussed with family at length Dr Soto
[2017-01-13] MEDS ORDERED: POTASSIUM CHLORIDE TABS 20 MEQ TABLET.ER (FP) PO ONE (17:00)
--- NOTE | 2017-01-13 19:41 | CONSULT ---
Consult Consult Specialty:: Oncology Reason for Consultation:: Multiple myeloma ;AMS - History of Present Illness History of Present Illness: 81yo F with PMH of Multiple Myeloma diagnosed 10/2016 presenting with AMS. Re Her Myeloma: I have called , his office will fax over pathology reports. Was diagnosed in -10/2016. 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 Has seen in [facility] interim and recommended chemo, but family/pt did not wanted to proceed. As per family, post surgery,pt was at [facility] and then was a [place], later she was sent home. As per them, at home she was doing very good with home PT and was at her normal baseline. From the past week or so, she was not at her self and became progressively drowsy to a point that she wasnt able to get out of bed and was moaning. Daughter denies fever, cough, vomiting. ER course was notable for: (1) Ca++ 16.8 (2) Calcitonin 200u IM (at 4u/kg) (3) NS 1L bolus x 2 - History Source History Provided By: Family Member, Medical Record Limitations to Obtaining History: Clinical Condition - Past Medical History Cardio/Vascular: Yes: Hyperlipdemia Pulmonary: Yes: COPD Musculoskeletal: Yes: Osteoarthritis - Alcohol/Substance Use Hx Alcohol Use: No History of Substance Use: reports: None - Smoking History Smoking history: Never smoked Have you smoked in the past 12 months: No Home Medications - Allergies Allergies/Adverse Reactions: Allergies Allergy/AdvReac Type Severity Reaction Status Date / Time Latex, Natural Rubber Allergy Verified 01/12/17 13:47 Penicillins Allergy Verified 01/12/17 13:47 - Home Medications Home Medications: Ambulatory Orders NK [No Known Home Medication] 01/12/17 Family Disease History - Family Disease History Family Disease History: Diabetes: Mother, CA: Sister (Breast CA), Other: Father (COPD) Physical Exam Vital Signs: Vital Signs Temperature 98.3 F 01/13/17 16:17 Pulse Rate 105 H 01/13/17 16:17 Respiratory Rate 20 01/13/17 16:17 Blood Pressure 96/60 01/13/17 16:17 O2 Sat by Pulse Oximetry (%) 97 01/13/17 16:17 Constitutional: Yes: Other (altered ,moaning) HENT: Yes: Atraumatic, Normocephalic Cardiovascular: Yes: Regular Rate and Rhythm Respiratory: Yes: Regular Gastrointestinal: Yes: Soft Edema: No Labs: CBC, BMP 01/13/17 06:31 01/13/17 06:31 Imaging - Results X-ray: Report Reviewed Problem List - Problems (1) Acute renal failure Code(s): N17.9 - ACUTE KIDNEY FAILURE, UNSPECIFIED Qualifiers: Acute renal failure type: unspecified Qualified Code(s): N17.9 - Acute kidney failure, unspecified (2) Hypercalcemia Code(s): E83.52 - HYPERCALCEMIA (3) Multiple myeloma Code(s): C90.00 - MULTIPLE MYELOMA NOT HAVING ACHIEVED REMISSION Qualifiers: Multiple myeloma remission status: not in remission Qualified Code(s ): C90.00 - Multiple myeloma not having achieved remission (4) Low back strain Code(s): S39.012A - STRAIN OF MUSCLE, FASCIA AND TENDON OF LOWER BACK, INIT Qualifiers: Encounter type: initial encounter Qualified Code(s): S39.012A - Strain of muscle, fascia and tendon of lower back, initial encounter Assessment/Plan Multiple Myeloma Hypercalcemia Altered Mental status SHANIA -Multiple myeloma labs ordered -Hypercalcemia due to MM, likely causing AMS -s/p zometa, calcitonin, on IVF. -spoke to myeloma specialist at [facility], plan per them, will give Dex 20mg x4 days. advised to start VCD ( Velcade D1 D4 D8 D11 and Cytoxan 300mg/m2 d1 D8 and dex as above). First will start with dex and assess her AMS. Discussed with the daughters, in agreement. -c/w hyperca management -anticipate PRBC transfusion tomorrow -supportive care. -discussed with both the daughters at bedside. -will follow
[2017-01-13] MEDS: CALCITONIN - SALMON SYNTHETIC 400 UNIT/2 ML VIAL IM SCH (23:06)
[2017-01-14] MEDS: morphine CARPU-JECT 2 MG/1 ML DISP.SYRIN IVPUSH ONE ×2 (03:00→12:37)
[2017-01-14] MEDS: FUROSEMIDE 40 MG/4 ML INJECTABLE VIAL IVPUSH SCH (06:18)
[2017-01-14] MEDS: SODIUM CHLORIDE 1,000 ML IV SCH ×2 (06:18→20:40)
[2017-01-14] MEDS: HEPARIN NA (PORCINE) 5,000 UNITS/ML 1ML VIAL SQ SCH ×3 (06:18→21:09)
[2017-01-14 08:13] LABS: MCH 32.1 pg (25.7-33.7); MCHC 33.3 g/dl (32.0-36.0); MEAN CELL VOLUME 96.6 fl (80-96); MEAN PLT VOLUME 8.5 fl (7.5-11.1); PLATELET COUNT 156 K/MM3 (134-434); RDW 16.1 % (11.6-15.6); WHITE BLOOD COUNT 15.8 K/mm3 (4.0-10.0)
[2017-01-14 08:33] LABS: ANION GAP 12 (8-16); CALCIUM 10.9 mg/dL (8.5-10.1); CO2 29 mmol/L (21-32); GLUCOSE,RANDOM 150 mg/dL (74-106); MAGNESIUM 1.8 mg/dL (1.8-2.4)
[2017-01-14 08:35] LABS: CREATININE 1.5 mg/dL (0.55-1.02); PHOSPHOROUS 4.3 mg/dL (2.5-4.9)
[2017-01-14] MEDS: CALCITONIN - SALMON SYNTHETIC 400 UNIT/2 ML VIAL IM SCH (09:08)
[2017-01-14] MEDS ORDERED: ALPRAZolam 0.25 MG TABLET PO ONE (09:19)
[2017-01-14] MEDS: MUPIROCIN 2% TOPICAL OINTMENT FOR DECOLONIZATION NS SCH ×2 (10:04→21:05)
[2017-01-14] MEDS: DEXAMETHASONE SOD PHOSPHATE 10 MG/1 ML VIAL IVPB SCH (10:04)
[2017-01-14] MEDS ORDERED: morphine CARPU-JECT 4 MG/1 ML DISP.SYRIN IVPUSH PRN ×3 (10:14→17:09)
[2017-01-14] MEDS: KCL 10 MEQ IVPB 100 ML IVPB SCH ×3 (10:59→13:36)
[2017-01-14 12:37] LABS: URINE CREATININE < 13.0 mg/dL (20-320)
[2017-01-14 12:39] LABS: URINE CREATININE < 13.0 mg/dL (20-320)
[2017-01-14 12:44] LABS: TOTAL CELLS COUNTED 100
[2017-01-14 12:45] LABS: METAMYELOCYTE 4 % (0-2); MYELOCYTE 2 % (0-2)
--- NOTE | 2017-01-14 12:47 | PN ---
Progress Note (short form) - Note Progress Note: RENAL discussed case with patients daughters Pthas jatin MM and has beeen evaluated by MM expert. Chemo was planned but their mother became confused three days ago. She has not been able to sleep. has been making a lot of urine and complains of pain and fears falling when being turned Last Vital Signs Temp Pulse Resp BP Pulse Ox 97.7 F 109 H 18 111/66 98 01/14/17 06:00 01/14/17 06:00 01/14/17 06:00 01/14/17 06:00 01/13/17 23:00 lungs clear anteriorly cvs s1s2 rr abd soft ext no edema neuro sedated CBC, BMP 01/14/17 06:05 01/14/17 06:05 Current Medications Generic Name Dose Route Start Last Admin Trade Name Freq PRN Reason Stop Dose Admin Chlorhexidine Gluconate 1 applic 01/12/17 22:00 01/13/17 21:05 Hibiclens For Decolonization - TP 1 applic HS TOMÁS Administration Dexamethasone Sodium Phosphate 20 mg 01/13/17 15:30 01/14/17 10:04 Decadron Injection - IVPB 01/16/17 12:00 20 mg DAILY TOMÁS Administration Furosemide 40 mg 01/13/17 06:00 01/14/17 06:18 Lasix Injection - IVPUSH 40 mg BID@0600,1400 TOMÁS Administration Heparin Sodium (Porcine) 5,000 unit 01/12/17 23:00 01/14/17 06:18 Heparin - SQ 5,000 unit TID TOMÁS Administration Sodium Chloride 1,000 mls @ 150 mls/hr 01/12/17 23:45 01/14/17 06:18 Normal Saline - IV 150 mls/hr ASDIR TOMÁS Administration Potassium Chloride 100 mls @ 100 mls/hr 01/14/17 10:45 01/14/17 12:04 Potassium Chloride 10 Meq Premix Ivpb - IVPB 01/14/17 13:44 100 mls/hr Q60M TOMÁS Administration Morphine Sulfate 2 mg 01/14/17 12:00 Morphine Injection - IVPUSH Q4H PRN PAIN Mupirocin 1 applic 01/12/17 22:00 01/14/17 10:04 Bactroban Ointment (For Decolonization) - NS 01/17/17 21:59 Not Given BID TOMÁS calcium 16.8 to 10.9 Impression 1. Hypercalcemia improving 2. SHANIA 3. anemia 4. hypokalemia 5. multiple myeloma Plan - calcium is improving - will check pth level however it is likely secondary to malignancy - cont with fluids and reduce lasix - replace potassium - check mag level - she already received zoledronic acid and calcitonin - monitor ins and outs - on decadron for hypercalcemia MV
--- NOTE | 2017-01-14 13:42 | PN ---
Physical Exam: SUBJECTIVE: Patient seen and examined OBJECTIVE: Vital Signs Period Temp Pulse Resp BP Sys/Saucedo Pulse Ox Last 24 Hr 97.4 F-98.3 F 92-109 16-20 96-111/57-72 97-98 GENERAL: The patient is awake, alert, and fully oriented, in no acute distress. HEAD: Normal with no signs of trauma. EYES: PERRL, extraocular movements intact, sclera anicteric, conjunctiva clear. No ptosis. ENT: Ears normal, nares patent, oropharynx clear without exudates, moist mucous membranes. NECK: Trachea midline, full range of motion, supple. LUNGS: Breath sounds equal, clear to auscultation bilaterally, no wheezes, no crackles, no accessory muscle use. HEART: Regular rate and rhythm, S1, S2 without murmur, rub or gallop. ABDOMEN: Soft, nontender, nondistended, normoactive bowel sounds, no guarding, no rebound, no hepatosplenomegaly, no masses. EXTREMITIES: 2+ pulses, warm, well-perfused, no edema. NEUROLOGICAL: Cranial nerves II through XII grossly intact. Normal speech, gait not observed. PSYCH: Normal mood, normal affect. SKIN: Warm, dry, normal turgor, no rashes or lesions noted Laboratory Results - last 24 hr 01/14/17 01/14/17 01/14/17 06:05 06:05 06:05 WBC 15.8 H D RBC 2.53 L Hgb 8.1 L Hct 24.5 L MCV 96.6 H MCH 32.1 MCHC 33.3 RDW 16.1 H Plt Count 156 D MPV 8.5 D Neutrophils % Y Neutrophils % (Manual) 70 Band Neuts % (Manual) 10 D Lymphocytes % Y Lymphocytes % (Manual) 10 D Monocytes % (Manual) 4 Myelocytes % (Man) 2 Sodium 146 H Potassium 3.0 L Chloride 105 Carbon Dioxide 29 Anion Gap 12 BUN 51 H D Creatinine 1.5 H Random Glucose 150 H D Calcium 10.9 H Phosphorus 4.3 D Magnesium 1.8 U Random Total Protein Urine Creatinine Protein/Creatinin Ratio U Free [place] Light Ch Cancelled U Free Lambda Light Ch Cancelled U Free [place]/Lambda 24 Cancelled 01/14/17 01/14/17 11:40 11:40 WBC RBC Hgb Hct MCV MCH MCHC RDW Plt Count MPV Neutrophils % Neutrophils % (Manual) Band Neuts % (Manual) Lymphocytes % Lymphocytes % (Manual) Monocytes % (Manual) Myelocytes % (Man) Sodium Potassium Chloride Carbon Dioxide Anion Gap BUN Creatinine Random Glucose Calcium Phosphorus Magnesium U Random Total Protein 50 H Urine Creatinine < 13.0 L < 13.0 L Protein/Creatinin Ratio TNP U Free [place] Light Ch U Free Lambda Light Ch U Free [place]/Lambda 24 Active Medications Generic Name Dose Route Start Last Admin Trade Name Freq PRN Reason Stop Dose Admin Chlorhexidine Gluconate 1 applic 01/12/17 22:00 01/13/17 21:05 Hibiclens For Decolonization - TP 1 applic HS TOMÁS Administration Dexamethasone Sodium Phosphate 20 mg 01/13/17 15:30 01/14/17 10:04 Decadron Injection - IVPB 01/16/17 12:00 20 mg DAILY TOMÁS Administration Furosemide 40 mg 01/15/17 10:00 Lasix Injection - IVPUSH DAILY TOMÁS Heparin Sodium (Porcine) 5,000 unit 01/12/17 23:00 01/14/17 06:18 Heparin - SQ 5,000 unit TID TOMÁS Administration Sodium Chloride 1,000 mls @ 150 mls/hr 01/12/17 23:45 01/14/17 06:18 Normal Saline - IV 150 mls/hr ASDIR TOMÁS Administration Potassium Chloride 100 mls @ 100 mls/hr 01/14/17 10:45 01/14/17 13:36 Potassium Chloride 10 Meq Premix Ivpb - IVPB 01/14/17 13:44 100 mls/hr Q60M TOMÁS Administration Morphine Sulfate 2 mg 01/14/17 12:00 Morphine Injection - IVPUSH Q4H PRN PAIN Mupirocin 1 applic 01/12/17 22:00 01/14/17 10:04 Bactroban Ointment (For Decolonization) - NS 01/17/17 21:59 Not Given BID TOMÁS ASSESSMENT/PLAN: Problem List - Problems (1) Multiple myeloma Assessment/Plan: -patient refused treatment in the past -now presenting with hypercalcemia showing improving ca, ARF, and AMS -will consult hematology to discuss options Code(s): C90.00 - MULTIPLE MYELOMA NOT HAVING ACHIEVED REMISSION Qualifiers: Multiple myeloma remission status: not in remission Qualified Code(s ): C90.00 - Multiple myeloma not having achieved remission (2) Acute renal failure Assessment/Plan: -secondary to dehydration, possible MM -improved with hydration -continue -nephrology on board Code(s): N17.9 - ACUTE KIDNEY FAILURE, UNSPECIFIED Qualifiers: Acute renal failure type: unspecified Qualified Code(s): N17.9 - Acute kidney failure, unspecified (3) Hypercalcemia Assessment/Plan: -received zometa -received calcitonin -check calcium in am, evaluate if need to continue calcitonin -continue lasix and IVF -nephrology consulted Code(s): E83.52 - HYPERCALCEMIA Problem List - Problems (1) Acute renal failure Code(s): N17.9 - ACUTE KIDNEY FAILURE, UNSPECIFIED Qualifiers: Acute renal failure type: unspecified Qualified Code(s): N17.9 - Acute kidney failure, unspecified (2) Hypercalcemia Code(s): E83.52 - HYPERCALCEMIA (3) Multiple myeloma Code(s): C90.00 - MULTIPLE MYELOMA NOT HAVING ACHIEVED REMISSION Qualifiers: Multiple myeloma remission status: not in remission Qualified Code(s ): C90.00 - Multiple myeloma not having achieved remission (4) Diverticulitis Code(s): K57.92 - DVTRCLI OF INTEST, PART UNSP, W/O PERF OR ABSCESS W/O BLEED (5) Low back strain Code(s): S39.012A - STRAIN OF MUSCLE, FASCIA AND TENDON OF LOWER BACK, INIT Qualifiers: Encounter type: initial encounter Qualified Code(s): S39.012A - Strain of muscle, fascia and tendon of lower back, initial encounter Visit type - Emergency Visit Emergency Visit: No - New Patient This patient is new to me today: Yes Date on this admission: 01/14/17 - Critical Care Critical Care patient: No - Discharge Referral Referred to [facility] No
[2017-01-14] MEDS ORDERED: morphine CARPU-JECT 2 MG/1 ML DISP.SYRIN IVPUSH PRN (13:49)
--- NOTE | 2017-01-14 15:13 | PN ---
Progress Note (short form) - Note Progress Note: Patient seen and examined lethargic moaning Last Vital Signs Temp Pulse Resp BP Pulse Ox 98.6 F 104 H 18 112/64 98 01/14/17 10:03 01/14/17 10:03 01/14/17 10:03 01/14/17 10:03 01/14/17 10:03 Cor: RSR, No murmurs, No gallops Lungs: Clear to P&A Abd: Soft, Normal bowel sounds, No organomegaly Ext:No significant edema Skin: No rashes, Integument intact Abnormal Lab Results 01/14/17 01/14/17 01/14/17 06:05 06:05 11:40 WBC 15.8 H D RBC 2.53 L Hgb 8.1 L Hct 24.5 L MCV 96.6 H RDW 16.1 H Sodium 146 H Potassium 3.0 L BUN 51 H D Creatinine 1.5 H Random Glucose 150 H D Calcium 10.9 H U Random Total Protein 50 H Urine Creatinine < 13.0 L 01/14/17 11:40 WBC RBC Hgb Hct MCV RDW Sodium Potassium BUN Creatinine Random Glucose Calcium U Random Total Protein Urine Creatinine < 13.0 L Active Medications Chlorhexidine Gluconate (Hibiclens For Decolonization -) 1 applic TP HS [facility] Last Admin: 01/13/17 21:05 Dose: 1 applic Dexamethasone Sodium Phosphate (Decadron Injection -) 20 mg IVPB DAILY [facility] Stop: 01/16/17 12:00 Last Admin: 01/14/17 10:04 Dose: 20 mg Furosemide (Lasix Injection -) 40 mg IVPUSH DAILY [facility] Heparin Sodium (Porcine) (Heparin -) 5,000 unit SQ TID [facility] Last Admin: 01/14/17 14:13 Dose: 5,000 unit Sodium Chloride (Normal Saline -) 1,000 mls @ 150 mls/hr IV ASDIR [facility] Last Admin: 01/14/17 06:18 Dose: 150 mls/hr Morphine Sulfate (Morphine Injection -) 2 mg IVPUSH Q4H PRN Last Admin: 01/14/17 14:13 Dose: Not Given Mupirocin (Bactroban Ointment (For Decolonization) -) 1 applic NS BID [facility] Stop: 01/17/17 21:59 Last Admin: 01/14/17 10:04 Dose: Not Given A/P 81 y/o patient with Multiple Myeloma Hypercalcemia Altered Mental status SHANIA -Multiple myeloma labs ordered -Hypercalcemia due to MM, -s/p zometa, calcitonin, on IVF. -on Dex 20mg x4 days. discussed with daughter -- about possibly starting velcade -c/w hyperca management transfuse for Hgb<8 transfer to 7w when bed available
[2017-01-14] MEDS: ALPRAZolam 0.25 MG TABLET PO PRN (20:47)
[2017-01-14] MEDS: CHLORHEXIDINE GLUCONATE 4% CLEANSER FOR DECOLONIZATION TP SCH (21:05)
[2017-01-14] MEDS: ACETAMINOPHEN 325 MG TABLET (FP) PO PRN (22:09)
[2017-01-15] MEDS: SODIUM CHLORIDE 1,000 ML IV SCH ×2 (01:12→10:03)
[2017-01-15] MEDS: ACETAMINOPHEN 325 MG TABLET (FP) PO PRN ×2 (04:50→17:15)
[2017-01-15] MEDS: ALPRAZolam 0.25 MG TABLET PO PRN (05:47)
[2017-01-15] MEDS: HEPARIN NA (PORCINE) 5,000 UNITS/ML 1ML VIAL SQ SCH ×3 (06:26→21:08)
[2017-01-15] MEDS ORDERED: ALPRAZolam 0.25 MG TABLET PO PRN ×2 (09:46→15:55)
[2017-01-15] MEDS: DEXAMETHASONE SOD PHOSPHATE 10 MG/1 ML VIAL IVPB SCH (10:02)
[2017-01-15] MEDS: FUROSEMIDE 40 MG/4 ML INJECTABLE VIAL IVPUSH SCH (10:03)
--- NOTE | 2017-01-15 11:38 | PN ---
Progress Note (short form) - Note Progress Note: RENAL Pt was transferred to 7th floor. She slept but requires benzos Last Vital Signs Temp Pulse Resp BP Pulse Ox 97.6 F 81 22 110/62 96 01/15/17 10:00 01/15/17 10:00 01/15/17 10:00 01/15/17 10:00 01/14/17 21:00 lungs clear anteriorly cvs s1s2 rr abd soft ext no edema neuro sedated, moans at times CBC, BMP 01/14/17 06:05 01/14/17 06:05 Current Medications Generic Name Dose Route Start Last Admin Trade Name Freq PRN Reason Stop Dose Admin Acetaminophen 650 mg 01/14/17 20:09 01/15/17 04:50 Tylenol - PO 650 mg Q6H PRN Administration FEVER OR PAIN Alprazolam 0.5 mg 01/15/17 09:46 01/15/17 10:03 Xanax - PO 0.5 mg TID PRN Administration ANXIETY Dexamethasone Sodium Phosphate 20 mg 01/13/17 15:30 01/15/17 10:02 Decadron Injection - IVPB 01/16/17 12:00 20 mg DAILY TOMÁS Administration Furosemide 40 mg 01/15/17 10:00 01/15/17 10:03 Lasix Injection - IVPUSH 40 mg DAILY TOMÁS Administration Heparin Sodium (Porcine) 5,000 unit 01/12/17 23:00 01/15/17 06:26 Heparin - SQ Not Given TID TOMÁS Sodium Chloride 1,000 mls @ 150 mls/hr 01/12/17 23:45 01/15/17 10:03 Normal Saline - IV 150 mls/hr ASDIR TOMÁS Administration Morphine Sulfate 1 mg 01/14/17 17:09 Morphine Injection - IVPUSH Q6H PRN BACK PAIN calcium not yet available Impression 1. Hypercalcemia improving 2. SHANIA 3. anemia 4. hypokalemia 5. multiple myeloma Plan - calcium is improving - pth level pending, however it is likely secondary to malignancy - cont with fluids and lasix - replace potassium - check mag level - she already received zoledronic acid and calcitonin - monitor ins and outs - on decadron for hypercalcemia MV
[2017-01-15] MEDS: morphine CARPU-JECT 2 MG/1 ML DISP.SYRIN IVPUSH PRN ×2 (11:57→17:54)
[2017-01-15 12:55] LABS: ANION GAP 8 (8-16); CALCIUM 8.1 mg/dL (8.5-10.1); CO2 28 mmol/L (21-32); CREATININE 1.1 mg/dL (0.55-1.02); GLUCOSE,RANDOM 131 mg/dL (74-106)
--- NOTE | 2017-01-15 15:34 | PN ---
Progress Note (short form) - Note Progress Note: Patient seen and examined lethargic Last Vital Signs Temp Pulse Resp BP Pulse Ox 97.3 F L 79 20 103/56 96 01/15/17 13:53 01/15/17 13:53 01/15/17 13:53 01/15/17 13:53 01/14/17 21:00 Cor: RSR, No murmurs, No gallops Lungs: Clear to P&A Abd: Soft, Normal bowel sounds, No organomegaly Ext:No significant edema Skin: No rashes, Integument intact Abnormal Lab Results 01/15/17 12:20 Sodium 151 H Potassium 3.2 L Chloride 115 H BUN 57 H Creatinine 1.1 H D Random Glucose 131 H Calcium 8.1 L D Active Medications Generic Name Dose Route Start Last Admin Trade Name Freq PRN Reason Stop Dose Admin Acetaminophen 650 mg 01/14/17 20:09 01/15/17 04:50 Tylenol - PO 650 mg Q6H PRN Administration FEVER OR PAIN Alprazolam 0.5 mg 01/15/17 09:46 01/15/17 10:03 Xanax - PO 0.5 mg TID PRN Administration ANXIETY Dexamethasone Sodium Phosphate 20 mg 01/13/17 15:30 01/15/17 10:02 Decadron Injection - IVPB 01/16/17 12:00 20 mg DAILY TOMÁS Administration Furosemide 40 mg 01/15/17 10:00 01/15/17 10:03 Lasix Injection - IVPUSH 40 mg DAILY TOMÁS Administration Heparin Sodium (Porcine) 5,000 unit 01/12/17 23:00 01/15/17 14:38 Heparin - SQ 5,000 unit TID TOMÁS Administration Sodium Chloride 1,000 mls @ 150 mls/hr 01/12/17 23:45 01/15/17 10:03 Normal Saline - IV 150 mls/hr ASDIR TOMÁS Administration Morphine Sulfate 1 mg 01/15/17 11:48 01/15/17 11:57 Morphine Injection - IVPUSH 1 mg Q6H PRN Administration BACK PAIN A/P 81 y/o patient with Multiple Myeloma Hypercalcemia Altered Mental status SHANIA -Multiple myeloma labs pending -Hypercalcemia due to MM, -s/p zometa, calcitonin, on IVF. decrease iv fluids -on Dex 20mg x4 days. discussed with daughter -- about possibly starting velcade transfuse for Hgb<8 cultures negative 01/12
--- NOTE | 2017-01-15 15:36 | PN ---
Physical Exam: SUBJECTIVE: Patient seen and examined. Sister present. Rapid breathing interspersed with pauses, moaning. OBJECTIVE: Vital Signs Period Temp Pulse Resp BP Sys/Saucedo Pulse Ox Last 24 Hr 97.3 F-98.3 F 79-104 18-22 94-117/56-70 96 GENERAL/Neuro: The patient opens eyes slightly to name. Does not follow commands. Withdraws to stimuli. Panting, moaning, emits small cries. In acute distress secondary to pain. LUNGS: Breath sounds CTA HEART: Regular, rapid; S1, S2 without murmur, rub or gallop. ABDOMEN: Soft, nontender, nondistended, hypoactive bowel sounds, no guarding, no rebound EXTREMITIES: 2+ pulses, warm, well-perfused, no edema. NEUROLOGICAL: Cranial nerves II through XII grossly intact. Normal speech, gait not observed. Laboratory Results - last 24 hr 01/15/17 12:20 Sodium 151 H Potassium 3.2 L Chloride 115 H Carbon Dioxide 28 Anion Gap 8 BUN 57 H Creatinine 1.1 H D Random Glucose 131 H Calcium 8.1 L D Active Medications Generic Name Dose Route Start Last Admin Trade Name Freq PRN Reason Stop Dose Admin Acetaminophen 650 mg 01/14/17 20:09 01/15/17 04:50 Tylenol - PO 650 mg Q6H PRN Administration FEVER OR PAIN Alprazolam 0.5 mg 01/15/17 09:46 01/15/17 10:03 Xanax - PO 0.5 mg TID PRN Administration ANXIETY Dexamethasone Sodium Phosphate 20 mg 01/13/17 15:30 01/15/17 10:02 Decadron Injection - IVPB 01/16/17 12:00 20 mg DAILY TOMÁS Administration Furosemide 40 mg 01/15/17 10:00 01/15/17 10:03 Lasix Injection - IVPUSH 40 mg DAILY TOMÁS Administration Heparin Sodium (Porcine) 5,000 unit 01/12/17 23:00 01/15/17 14:38 Heparin - SQ 5,000 unit TID TOMÁS Administration Sodium Chloride 1,000 mls @ 150 mls/hr 01/12/17 23:45 01/15/17 10:03 Normal Saline - IV 150 mls/hr ASDIR TOMÁS Administration Morphine Sulfate 1 mg 01/15/17 11:48 01/15/17 11:57 Morphine Injection - IVPUSH 1 mg Q6H PRN Administration BACK PAIN ASSESSMENT/PLAN 81 year-old female recently diagnosed with multiple myeloma and presumed pathologic lumbar compression fracture s/p repair 10/2016. Admitted for AMS, hypercalcemia, and SHANIA. Multiple myeloma --in acute distress secondary to pain --discussed plan to increase pain medication with daughter Arleth and sister --increase morphine to 3mg q6h PRN and ativan 1m q6h PRN --palliative care consult --oncology planning on starting velcade Acute renal failure --Cr 2.0 on admission, 1.1 today --continue IV fluids Hypercalcemia likely secondary to multiple myeloma --already received zoledronic acid and calcitonin --corrected Ca 9.5 today (based on albumin 2.2) --continue fluids and lasix --on dexamethasone 20mg IVP daily x 4 days (tomorrow last dose) Hypokalemia --repleted with PO and will add to IV fluids Hypernatremia --Na 151 --switch fluids to D51/2NS+20K @ 75mL/hr DVT prophylaxis: subq heparin Visit type - Emergency Visit Emergency Visit: Yes ED Registration Date: 01/12/17 Care time: The patient presented to the Emergency Department on the above date and was hospitalized for further evaluation of their emergent condition. - New Patient This patient is new to me today: Yes Date on this admission: 01/15/17 - Critical Care Critical Care patient: No
[2017-01-15] MEDS ORDERED: SODIUM CHLORIDE 1,000 ML IV SCH (15:48)
[2017-01-15] MEDS: D5-1/2NS+20 MEQ KCL - 1,000 ML IV SCH (17:14)
[2017-01-15] MEDS: POTASSIUM CHLORIDE TABS 20 MEQ TABLET.ER (FP) PO SCH ×2 (17:15→20:54)
[2017-01-15] MEDS ORDERED: morphine CARPU-JECT 2 MG/1 ML DISP.SYRIN IVPUSH PRN ×2 (18:18→18:30)
[2017-01-15] MEDS ORDERED: LORazepam 2 MG/ML SDV VIAL IVPUSH PRN (18:18)
[2017-01-15] MEDS ORDERED: morphine CARPU-JECT 2 MG/1 ML DISP.SYRIN ONE (18:23)
[2017-01-15] MEDS: LORazepam 2 MG/ML SDV VIAL IVPUSH PRN (18:36)
[2017-01-15] MEDS ORDERED: SODIUM CHLORIDE 250 ML IV STA (20:44)
[2017-01-16] MEDS: morphine CARPU-JECT 2 MG/1 ML DISP.SYRIN IVPUSH PRN ×3 (02:25→22:28)
[2017-01-16] MEDS: HEPARIN NA (PORCINE) 5,000 UNITS/ML 1ML VIAL SQ SCH ×3 (06:12→22:45)
[2017-01-16 07:31] LABS: MCH 32.3 pg (25.7-33.7); MCHC 33.1 g/dl (32.0-36.0); MEAN CELL VOLUME 97.4 fl (80-96); MEAN PLT VOLUME 8.3 fl (7.5-11.1); PLATELET COUNT 105 K/MM3 (134-434); RDW 16.7 % (11.6-15.6); WHITE BLOOD COUNT 8.2 K/mm3 (4.0-10.0)
[2017-01-16 07:45] LABS: ALBUMIN 2.6 g/dl (3.4-5.0); ANION GAP 6 (8-16); CALCIUM 7.5 mg/dL (8.5-10.1); CO2 27 mmol/L (21-32); CREATININE 1.1 mg/dL (0.55-1.02); GLUCOSE,RANDOM 154 mg/dL (74-106); MAGNESIUM 1.5 mg/dL (1.8-2.4); PHOSPHOROUS 2.1 mg/dL (2.5-4.9); SGOT/AST 25 U/L (15-37); SGPT/ALT 10 U/L (12-78)
[2017-01-16 07:47] LABS: ALK PHOS 55 U/L (45-117); BILIRUBIN,TOTAL 0.3 mg/dL (0.2-1.0); TOT PROT 5.9 g/dl (6.4-8.2)
[2017-01-16 09:16] LABS: HYPOCHROMIA FEW; METAMYELOCYTE 4 % (0-2); MYELOCYTE 3 % (0-2); TOTAL CELLS COUNTED 100
[2017-01-16] MEDS: DEXAMETHASONE SOD PHOSPHATE 10 MG/1 ML VIAL IVPB SCH (09:49)
[2017-01-16] MEDS: FUROSEMIDE 40 MG/4 ML INJECTABLE VIAL IVPUSH SCH (09:49)
[2017-01-16] MEDS: LORazepam 2 MG/ML SDV VIAL IVPUSH PRN ×2 (11:29→19:16)
--- NOTE | 2017-01-16 13:40 | PN ---
Progress Note, Physician Chief Complaint: Unable to obtain - Current Medication List Current Medications: Active Medications Acetaminophen (Tylenol -) 650 mg PO Q6H PRN PRN Reason: FEVER OR PAIN Last Admin: 01/15/17 17:15 Dose: 650 mg Bortezomib (Velcade) 1.75 mg SQ ONCE ONE Stop: 01/16/17 18:01 Furosemide (Lasix Injection -) 40 mg IVPUSH DAILY [facility] Last Admin: 01/16/17 09:49 Dose: 40 mg Heparin Sodium (Porcine) (Heparin -) 5,000 unit SQ TID TOMÁS Last Admin: 01/16/17 06:12 Dose: Not Given Potassium Chloride/Dextrose/Sod Cl (D5-1/2ns+20 Meq Kcl -) 1,000 mls @ 75 mls/ hr IV ASDIR TOM[facility]S Last Admin: 01/15/17 17:14 Dose: 75 mls/hr Sodium Chloride (Normal Saline -) 1,000 mls @ 100 mls/hr IV ASDIR [facility] Last Admin: 01/15/17 17:16 Dose: Not Given Lorazepam (Ativan Injection -) 1 mg IVPUSH Q6H PRN PRN Reason: ANXIETY Last Admin: 01/16/17 11:29 Dose: 1 mg Morphine Sulfate (Morphine Injection -) 1 mg IVPUSH Q6H PRN PRN Reason: PAIN Last Admin: 01/16/17 09:49 Dose: 1 mg - Objective Vital Signs: Vital Signs Temperature 36.7 C 01/16/17 06:00 Pulse Rate 89 01/16/17 06:00 Respiratory Rate 20 01/16/17 06:00 Blood Pressure 99/65 01/16/17 06:00 O2 Sat by Pulse Oximetry (%) 96 01/15/17 21:00 Constitutional: Yes: No Distress, Calm, Thin Cardiovascular: Yes: Regular Rate and Rhythm. No: Gallop, Murmur, Rub Respiratory: Yes: Regular, CTA Bilaterally. No: Rales, Rhonchi, Wheezes Gastrointestinal: Yes: Normal Bowel Sounds, Soft. No: Distention, Tenderness Extremities: Yes: WNL Edema: No Labs: CBC, BMP 01/16/17 06:00 01/16/17 06:00 INR, PTT INR 1.04 (0.82-1.09) 01/12/17 14:30 Problem List - Problems (1) Multiple myeloma Code(s): C90.00 - MULTIPLE MYELOMA NOT HAVING ACHIEVED REMISSION Qualifiers: Multiple myeloma remission status: not in remission Qualified Code(s ): C90.00 - Multiple myeloma not having achieved remission (2) Acute renal failure Code(s): N17.9 - ACUTE KIDNEY FAILURE, UNSPECIFIED Qualifiers: Acute renal failure type: unspecified Qualified Code(s): N17.9 - Acute kidney failure, unspecified (3) Hypercalcemia Code(s): E83.52 - HYPERCALCEMIA (4) Metabolic encephalopathy Code(s): G93.41 - METABOLIC ENCEPHALOPATHY Assessment/Plan (1) Multiple myeloma Assessment/Plan: -hematology following and appreciate assistance -will try velcade today -received dexamethasone over the weekend -poor prognosis secondary to delay of treatment per patient's desire -monitor for improvement Code(s): C90.00 - MULTIPLE MYELOMA NOT HAVING ACHIEVED REMISSION Qualifiers: Multiple myeloma remission status: not in remission Qualified Code(s ): C90.00 - Multiple myeloma not having achieved remission (2) Acute renal failure Assessment/Plan: -nephrology following and case discussed -continue IVF -improving Code(s): N17.9 - ACUTE KIDNEY FAILURE, UNSPECIFIED Qualifiers: Acute renal failure type: unspecified Qualified Code(s): N17.9 - Acute kidney failure, unspecified (3) Hypercalcemia Assessment/Plan: -received zometa and calcitonin -d/c lasix secondary to resolution -nephrology following Code(s): E83.52 - HYPERCALCEMIA (4) Metabolic encephalopathy -secondary to multiple myeloma and pain medications -monitor, not improved since Monday (5) Anemia -transfuse -secondary to multiple myeloma
--- NOTE | 2017-01-16 14:57 | PN ---
Progress Note, Physician History of Present Illness: Pt seen and examined at bedside. She is lethargic. - Current Medication List Current Medications: Active Medications Acetaminophen (Tylenol -) 650 mg PO Q6H PRN PRN Reason: FEVER OR PAIN Last Admin: 01/15/17 17:15 Dose: 650 mg Bortezomib (Velcade) 1.75 mg SQ ONCE ONE Stop: 01/16/17 18:01 Furosemide (Lasix Injection -) 40 mg IVPUSH DAILY [facility] Last Admin: 01/16/17 09:49 Dose: 40 mg Heparin Sodium (Porcine) (Heparin -) 5,000 unit SQ TID [facility] Last Admin: 01/16/17 06:12 Dose: Not Given Potassium Chloride/Dextrose/Sod Cl (D5-1/2ns+20 Meq Kcl -) 1,000 mls @ 75 mls/ hr IV ASDIR [facility] Last Admin: 01/15/17 17:14 Dose: 75 mls/hr Sodium Chloride (Normal Saline -) 1,000 mls @ 100 mls/hr IV ASDIR [facility] Last Admin: 01/15/17 17:16 Dose: Not Given Lorazepam (Ativan Injection -) 1 mg IVPUSH Q6H PRN PRN Reason: ANXIETY Last Admin: 01/16/17 11:29 Dose: 1 mg Morphine Sulfate (Morphine Injection -) 1 mg IVPUSH Q6H PRN PRN Reason: PAIN Last Admin: 01/16/17 09:49 Dose: 1 mg - Objective Vital Signs: Vital Signs Temperature 98.1 F 01/16/17 06:00 Pulse Rate 89 01/16/17 06:00 Respiratory Rate 20 01/16/17 06:00 Blood Pressure 99/65 01/16/17 06:00 O2 Sat by Pulse Oximetry (%) 96 01/15/17 21:00 Constitutional: Yes: Calm Cardiovascular: Yes: S1, S2 Respiratory: Yes: On Venti-Mask Gastrointestinal: Yes: Soft Genitourinary: Yes: [place] Present Musculoskeletal: Yes: Muscle Weakness Edema: No Neurological: Yes: Lethargy Labs: CBC, BMP 01/16/17 06:00 01/16/17 06:00 INR, PTT INR 1.04 (0.82-1.09) 01/12/17 14:30 Problem List - Problems (1) Acute renal failure Code(s): N17.9 - ACUTE KIDNEY FAILURE, UNSPECIFIED Qualifiers: Acute renal failure type: unspecified Qualified Code(s): N17.9 - Acute kidney failure, unspecified (2) Hypercalcemia Code(s): E83.52 - HYPERCALCEMIA (3) Multiple myeloma Code(s): C90.00 - MULTIPLE MYELOMA NOT HAVING ACHIEVED REMISSION Qualifiers: Multiple myeloma remission status: not in remission Qualified Code(s ): C90.00 - Multiple myeloma not having achieved remission Assessment/Plan Current Medications Generic Name Dose Route Start Last Admin Trade Name Freq PRN Reason Stop Dose Admin Acetaminophen 650 mg 01/14/17 20:09 01/15/17 17:15 Tylenol - PO 650 mg Q6H PRN Administration FEVER OR PAIN Bortezomib 1.75 mg 01/16/17 18:00 Velcade SQ 01/16/17 18:01 ONCE ONE Furosemide 40 mg 01/15/17 10:00 01/16/17 09:49 Lasix Injection - IVPUSH 40 mg DAILY TOMÁS Administration Heparin Sodium (Porcine) 5,000 unit 01/12/17 23:00 01/16/17 06:12 Heparin - SQ Not Given TID TOMÁS Potassium Chloride/Dextrose/Sod Cl 1,000 mls @ 75 mls/hr 01/15/17 16:00 17:14 D5-1/2ns+20 Meq Kcl - IV 75 mls/hr ASDIR TOMÁS Administration Sodium Chloride 1,000 mls @ 100 mls/hr 01/15/17 15:48 01/15/17 17:16 Normal Saline - IV Not Given ASDIR TOMÁS Lorazepam 1 mg 01/15/17 18:30 01/16/17 11:29 Ativan Injection - IVPUSH 1 mg Q6H PRN Administration ANXIETY Morphine Sulfate 1 mg 01/15/17 23:04 01/16/17 09:49 Morphine Injection - IVPUSH 1 mg Q6H PRN Administration PAIN Impression 1. Hypercalcemia improving 2. SHANIA 3. anemia 4. hypokalemia 5. multiple myeloma Plan - calcium levels is improved - can hold of lasix for now - cont hypotonic fluids as sodium is rising - PTH is pending - discussed with family at length - prognosis guarded Dr Soto
[2017-01-16] MEDS: D5-1/2NS+20 MEQ KCL - 1,000 ML IV SCH (16:15)
[2017-01-16] MEDS ORDERED: BORTEZOMIB (VELCADE) 2.5 MG/ML SUB-Q INJECTION SQ ONE (18:00)
--- NOTE | 2017-01-16 21:10 | PN ---
Progress Note (short form) - Note Progress Note: Patient seen and examined lethargic, moaning Last Vital Signs Temp Pulse Resp BP Pulse Ox 98.1 F 87 18 129/71 97 01/16/17 22:45 01/16/17 22:45 01/16/17 22:45 01/16/17 22:45 01/16/17 21:00 Cor: RSR, No murmurs, No gallops Lungs: decreased at bases Abd: Soft, Normal bowel sounds, No organomegaly Ext:No significant edema Abnormal Lab Results 01/14/17 01/16/17 01/16/17 11:40 06:00 06:00 RBC 2.08 L Hgb 6.7 L* D Hct 20.2 L D MCV 97.4 H RDW 16.7 H Plt Count 105 L D Lymphocytes % (Manual) 7 L D Myelocytes % (Man) 3 H D Sodium 152 H Chloride 119 H Anion Gap 6 L BUN 49 H Creatinine 1.1 H Random Glucose 154 H Calcium 7.5 L Phosphorus 2.1 L D Magnesium 1.5 L ALT 10 L Total Protein 5.9 L Albumin 2.6 L U Free [place] Light Ch 7270.00 H U Free [place]/Lambda 24 5048.61 H Crossmatch 01/16/17 14:20 RBC Hgb Hct MCV RDW Plt Count Lymphocytes % (Manual) Myelocytes % (Man) Sodium Chloride Anion Gap BUN Creatinine Random Glucose Calcium Phosphorus Magnesium ALT Total Protein Albumin U Free [place] Light Ch U Free [place]/Lambda 24 Crossmatch See Detail Active Medications Generic Name Dose Route Start Last Admin Trade Name Freq PRN Reason Stop Dose Admin Acetaminophen 650 mg 01/14/17 20:09 01/15/17 17:15 Tylenol - PO 650 mg Q6H PRN Administration FEVER OR PAIN Heparin Sodium (Porcine) 5,000 unit 01/17/17 06:00 01/17/17 06:10 Heparin - SQ 5,000 unit TID TOMÁS Administration Potassium Chloride/Dextrose/Sod Cl 1,000 mls @ 75 mls/hr 01/15/17 16:00 16:15 D5-1/2ns+20 Meq Kcl - IV 75 mls/hr ASDIR TOMÁS Administration Acyclovir 125 mg/ Dextrose 102.5 mls @ 100 mls/hr 01/16/17 18:15 IVPB Q12H TOMÁS Lorazepam 1 mg 01/15/17 18:30 01/17/17 01:11 Ativan Injection - IVPUSH 1 mg Q6H PRN Administration ANXIETY Morphine Sulfate 1 mg 01/15/17 23:04 01/17/17 06:09 Morphine Injection - IVPUSH 1 mg Q6H PRN Administration PAIN A/P 81 y/o patient with Multiple Myeloma Hypercalcemia Altered Mental status SHANIA Bone pains Discussed at length and in great detail with patients daughters----discussed that she has extremely high tumor burden, advanced disease, frail, in pain. Hypercalcemia and renal function improved but as patient is in considerable pain -- her comfort takes priority and pain control is contributing to her delirium, Overall very grim situation, but since velcade is effective and is generally well tolerated , discussed with patients family. will start velcade D1,4,8,11 hold cytoxaan for now s/p dex x 4 days/zometa discussed all side effects o fvelcade--thrombocytopenia/neuropathy/shingles/ rare anaphylaxis/constipation etc. they understand and are willing to proceed with velcade/supportive care
[2017-01-17] MEDS: LORazepam 2 MG/ML SDV VIAL IVPUSH PRN ×3 (01:11→18:02)
[2017-01-17 06:06] LABS: FREE LAMB CHN UR 1.44 mg/L (0.24-6.66); KAPPA LAMBDA RATIO URIN 5048.61 (2.04-10.37)
[2017-01-17] MEDS: morphine CARPU-JECT 2 MG/1 ML DISP.SYRIN IVPUSH PRN ×4 (06:09→22:14)
[2017-01-17] MEDS: HEPARIN NA (PORCINE) 5,000 UNITS/ML 1ML VIAL SQ SCH ×3 (06:10→22:14)
[2017-01-17] MEDS: DEXTROSE 5% IVPB SCH ×3 (06:37→18:18)
[2017-01-17] MEDS: WATER IVPB SCH ×3 (06:37→18:18)
[2017-01-17] MEDS: ACYCLOVIR IVPB SCH ×3 (06:37→18:18)
[2017-01-17 07:32] LABS: MCH 31.2 pg (25.7-33.7); MCHC 33.4 g/dl (32.0-36.0); MEAN CELL VOLUME 93.4 fl (80-96); MEAN PLT VOLUME 8.2 fl (7.5-11.1); PLATELET COUNT 81 K/MM3 (134-434); RDW 17.9 % (11.6-15.6); WHITE BLOOD COUNT 6.2 K/mm3 (4.0-10.0)
[2017-01-17 08:01] LABS: ALBUMIN 2.7 g/dl (3.4-5.0); ANION GAP 9 (8-16); CALCIUM 7.3 mg/dL (8.5-10.1); CO2 26 mmol/L (21-32); GLUCOSE,RANDOM 144 mg/dL (74-106); MAGNESIUM 1.5 mg/dL (1.8-2.4); SGOT/AST 22 U/L (15-37); SGPT/ALT 11 U/L (12-78); URIC ACID 8.9 mg/dL (2.6-7.2)
[2017-01-17 08:03] LABS: ALK PHOS 56 U/L (45-117); BILIRUBIN,TOTAL 0.3 mg/dL (0.2-1.0); LDH 241 U/L (84-246); PHOSPHOROUS 1.5 mg/dL (2.5-4.9)
[2017-01-17] MEDS ORDERED: PANTOPRAZOLE SODIUM 40 MG/100 ML PRE-DOCKED IVPB SCH (10:00)
[2017-01-17 10:05] LABS: PLATELET ESTIMATE DECREASED (NORMAL)
[2017-01-17 10:06] LABS: METAMYELOCYTE 4 % (0-2); MYELOCYTE 2 % (0-2); TOTAL CELLS COUNTED 100
[2017-01-17] MEDS ORDERED: MAGNESIUM SULF 50% (8.12 MEQ/2 ML-1 GM VIAL) IVPB ONE ×2 (10:08→18:30)
[2017-01-17] MEDS ORDERED: POTASSIUM PHOSPHATE 16 MM in SODIUM CHLORIDE 250 ML IVPB ONE (10:08)
[2017-01-17] MEDS ORDERED: PANTOPRAZOLE SODIUM 40 MG VIAL ONE (10:15)
[2017-01-17] MEDS ORDERED: SODIUM CHLORIDE 100 ML IVPB ONE (10:16)
[2017-01-17] MEDS: PANTOPRAZOLE SODIUM 40 MG in SODIUM CHLORIDE 100 ML IVPB SCH (10:36)
--- NOTE | 2017-01-17 11:11 | PN ---
Progress Note, Physician Chief Complaint: Unable to obtain - Current Medication List Current Medications: Active Medications Acetaminophen (Tylenol -) 650 mg PO Q6H PRN PRN Reason: FEVER OR PAIN Last Admin: 01/15/17 17:15 Dose: 650 mg Heparin Sodium (Porcine) (Heparin -) 5,000 unit SQ TID [facility] Last Admin: 01/17/17 06:10 Dose: 5,000 unit Potassium Chloride/Dextrose/Sod Cl (D5-1/2ns+20 Meq Kcl -) 1,000 mls @ 75 mls/ hr IV ASDIR [facility] Last Admin: 01/16/17 16:15 Dose: 75 mls/hr Acyclovir 125 mg/ Dextrose 102.5 mls @ 100 mls/hr IVPB Q12H [facility] Last Admin: 01/17/17 10:36 Dose: Not Given Pantoprazole Sodium 40 mg/ (Sodium Chloride) 100 mls @ 200 mls/hr IVPB DAILY [facility] Last Admin: 01/17/17 10:36 Dose: 200 mls/hr Potassium Phosphate 16 mm/ (Sodium Chloride) 255.3333 mls @ 42.556 mls/hr IVPB ONCE ONE Stop: 01/17/17 16:07 Lorazepam (Ativan Injection -) 1 mg IVPUSH Q6H PRN PRN Reason: ANXIETY Last Admin: 01/17/17 10:35 Dose: 1 mg Morphine Sulfate (Morphine Injection -) 1 mg IVPUSH Q6H PRN PRN Reason: PAIN Last Admin: 01/17/17 06:09 Dose: 1 mg - Objective Vital Signs: Vital Signs Temperature 36.6 C 01/17/17 06:04 Pulse Rate 98 H 01/17/17 06:04 Respiratory Rate 20 01/17/17 06:04 Blood Pressure 126/80 01/17/17 06:04 O2 Sat by Pulse Oximetry (%) 97 01/16/17 21:00 Constitutional: Yes: Mild Distress, Other (lethargic) Cardiovascular: Yes: Regular Rate and Rhythm. No: Gallop, Murmur, Rub Respiratory: Yes: Regular, CTA Bilaterally. No: Rales, Rhonchi, Wheezes Gastrointestinal: Yes: Normal Bowel Sounds, Soft. No: Distention, Tenderness Extremities: Yes: WNL Edema: Yes Edema: LUE: 1+, RUE: 1+, LLE: 1+, RLE: 1+ Labs: CBC, BMP 01/17/17 06:00 01/17/17 06:00 INR, PTT INR 1.04 (0.82-1.09) 01/12/17 14:30 Problem List - Problems (1) Multiple myeloma Code(s): C90.00 - MULTIPLE MYELOMA NOT HAVING ACHIEVED REMISSION Qualifiers: Multiple myeloma remission status: not in remission Qualified Code(s ): C90.00 - Multiple myeloma not having achieved remission (2) Acute renal failure Code(s): N17.9 - ACUTE KIDNEY FAILURE, UNSPECIFIED Qualifiers: Acute renal failure type: unspecified Qualified Code(s): N17.9 - Acute kidney failure, unspecified (3) Hypercalcemia Code(s): E83.52 - HYPERCALCEMIA (4) Metabolic encephalopathy Code(s): G93.41 - METABOLIC ENCEPHALOPATHY Assessment/Plan (1) Multiple myeloma Assessment/Plan: -received velcade yesterday -monitor -patient with very poor prognosis, see minimal improvement -had long discussion with family today about goals of care Code(s): C90.00 - MULTIPLE MYELOMA NOT HAVING ACHIEVED REMISSION Qualifiers: Multiple myeloma remission status: not in remission Qualified Code(s ): C90.00 - Multiple myeloma not having achieved remission (2) Acute renal failure Assessment/Plan: -nephrology following and case discussed -continue IVF -improving Code(s): N17.9 - ACUTE KIDNEY FAILURE, UNSPECIFIED Qualifiers: Acute renal failure type: unspecified Qualified Code(s): N17.9 - Acute kidney failure, unspecified (3) Hypercalcemia Assessment/Plan: -received zometa and calcitonin -d/c lasix secondary to resolution -nephrology following Code(s): E83.52 - HYPERCALCEMIA (4) Metabolic encephalopathy -secondary to multiple myeloma and pain medications -monitor, not improved since Monday (5) Anemia -transfused with good response (6) FEN -low magnesium and phosphorus -replace -d/w nephrology, offered clinimix -family reluctant to start clinimix at this time
--- NOTE | 2017-01-17 15:41 | PN ---
Progress Note, Physician History of Present Illness: Pt seen and examined at bedside. She is lethargic and has not been able to eat. - Current Medication List Current Medications: Active Medications Acetaminophen (Tylenol -) 650 mg PO Q6H PRN PRN Reason: FEVER OR PAIN Last Admin: 01/15/17 17:15 Dose: 650 mg Heparin Sodium (Porcine) (Heparin -) 5,000 unit SQ TID [facility] Last Admin: 01/17/17 14:00 Dose: 5,000 unit Potassium Chloride/Dextrose/Sod Cl (D5-1/2ns+20 Meq Kcl -) 1,000 mls @ 75 mls/ hr IV ASDIR [facility] Last Admin: 01/16/17 16:15 Dose: 75 mls/hr Acyclovir 125 mg/ Dextrose 102.5 mls @ 100 mls/hr IVPB Q12H [facility] Last Admin: 01/17/17 10:36 Dose: Not Given Pantoprazole Sodium 40 mg/ (Sodium Chloride) 100 mls @ 200 mls/hr IVPB DAILY [facility] Last Admin: 01/17/17 10:36 Dose: 200 mls/hr Potassium Phosphate 16 mm/ (Sodium Chloride) 255.3333 mls @ 42.556 mls/hr IVPB ONCE ONE Stop: 01/17/17 16:07 Last Admin: 01/17/17 12:05 Dose: 42.556 mls/hr Lorazepam (Ativan Injection -) 0.5 mg IVPUSH Q6H PRN PRN Reason: ANXIETY Morphine Sulfate (Morphine Injection -) 1 mg IVPUSH Q6H PRN PRN Reason: PAIN Last Admin: 01/17/17 13:12 Dose: 1 mg - Objective Vital Signs: Vital Signs Temperature 97.8 F 01/17/17 10:04 Pulse Rate 90 01/17/17 10:04 Respiratory Rate 20 01/17/17 10:04 Blood Pressure 110/68 01/17/17 10:04 O2 Sat by Pulse Oximetry (%) 97 01/17/17 09:00 Constitutional: Yes: Calm Cardiovascular: Yes: S1, S2 Respiratory: Yes: On Venti-Mask Gastrointestinal: Yes: Soft Genitourinary: Yes: Incontinence Musculoskeletal: Yes: Muscle Weakness Edema: Yes Edema: LUE: Trace, RUE: Trace, LLE: Trace, RLE: Trace Neurological: Yes: Lethargy Labs: CBC, BMP 01/17/17 06:00 01/17/17 06:00 INR, PTT INR 1.04 (0.82-1.09) 01/12/17 14:30 Problem List - Problems (1) Acute renal failure Code(s): N17.9 - ACUTE KIDNEY FAILURE, UNSPECIFIED Qualifiers: Acute renal failure type: unspecified Qualified Code(s): N17.9 - Acute kidney failure, unspecified (2) Hypercalcemia Code(s): E83.52 - HYPERCALCEMIA (3) Multiple myeloma Code(s): C90.00 - MULTIPLE MYELOMA NOT HAVING ACHIEVED REMISSION Qualifiers: Multiple myeloma remission status: not in remission Qualified Code(s ): C90.00 - Multiple myeloma not having achieved remission Assessment/Plan Current Medications Generic Name Dose Route Start Last Admin Trade Name Freq PRN Reason Stop Dose Admin Acetaminophen 650 mg 01/14/17 20:09 01/15/17 17:15 Tylenol - PO 650 mg Q6H PRN Administration FEVER OR PAIN Heparin Sodium (Porcine) 5,000 unit 01/17/17 06:00 01/17/17 14:00 Heparin - SQ 5,000 unit TID TOMÁS Administration Potassium Chloride/Dextrose/Sod Cl 1,000 mls @ 75 mls/hr 01/15/17 16:00 16:15 D5-1/2ns+20 Meq Kcl - IV 75 mls/hr ASDIR TOMÁS Administration Acyclovir 125 mg/ Dextrose 102.5 mls @ 100 mls/hr 01/16/17 18:15 01/17/17 10:36 IVPB Not Given Q12H TOMÁS Pantoprazole Sodium 40 mg/ 100 mls @ 200 mls/hr 01/17/17 10:00 01/17/17 10:36 Sodium Chloride IVPB 200 mls/hr DAILY TOM[facility] Administration Potassium Phosphate 16 mm/ 255.3333 mls @ 42.556 mls/hr 01/17/17 10:08 12:05 Sodium Chloride IVPB 01/17/17 16:07 42.556 mls/hr ONCE ONE Administration Lorazepam 0.5 mg 01/17/17 12:28 Ativan Injection - IVPUSH Q6H PRN ANXIETY Morphine Sulfate 1 mg 01/15/17 23:04 01/17/17 13:12 Morphine Injection - IVPUSH 1 mg Q6H PRN Administration PAIN Laboratory Tests 01/17/17 06:00 Phosphorus 1.5 L D Magnesium 1.5 L Impression 1. Hypercalcemia improving 2. SHANIA 3. anemia 4. hypokalemia 5. multiple myeloma Plan - change d5 from 05/30 to 05/31 with potassium - repeat labs in am - pt started on Velcade today - monitor lytes - discussed care with family - discussed with attending - renal function improving - calcium improving - phos and mag supplements - follow up PTH - prognosis guarded Dr Soto
[2017-01-17] MEDS ORDERED: D5-1/3NS+20 MEQ KCL - 1,000 ML IV SCH (15:45)
--- NOTE | 2017-01-17 17:30 | PN ---
Progress Note (short form) - Note Progress Note: Patient seen and examined Non - communicative Daughter at bedside Giving sips of protein shakes. States patient is tolerating and not aspirating same. Last Vital Signs Temp Pulse Resp BP Pulse Ox 97.8 F 90 20 110/68 97 01/17/17 10:04 01/17/17 10:04 01/17/17 10:04 01/17/17 10:04 01/17/17 09:00 Eyes closed lungs -poor inspiratory effort Cor-RSR Abd- mild distension SCD No edema Some grimacing CBC, BMP 01/17/17 06:00 01/17/17 06:00 Current Medications Generic Name Dose Route Start Last Admin Trade Name Freq PRN Reason Stop Dose Admin Acetaminophen 650 mg 01/14/17 20:09 01/15/17 17:15 Tylenol - PO 650 mg Q6H PRN Administration FEVER OR PAIN Heparin Sodium (Porcine) 5,000 unit 01/17/17 06:00 01/17/17 14:00 Heparin - SQ 5,000 unit TID TOMÁS Administration Acyclovir 125 mg/ Dextrose 102.5 mls @ 100 mls/hr 01/16/17 18:15 01/17/17 10:36 IVPB Not Given Q12H TOMÁS Pantoprazole Sodium 40 mg/ 100 mls @ 200 mls/hr 01/17/17 10:00 01/17/17 10:36 Sodium Chloride IVPB 200 mls/hr DAILY TOMÁ[facility] Administration Dextrose/Sodium Chloride 1,000 mls @ 75 mls/hr 01/17/17 15:45 D5-1/3ns+20 Meq Kcl - IV ASDIR [facility]OM[facility]S Lorazepam 0.5 mg 01/17/17 12:28 Ativan Injection - IVPUSH Q6H PRN ANXIETY Morphine Sulfate 1 mg 01/15/17 23:04 01/17/17 13:12 Morphine Injection - IVPUSH 1 mg Q6H PRN Administration PAIN Impression: Multiple myeloma- s/p Velcade , decadron Anemia thrombocytopenia Electrolyte imbalance Hypernatremia, Hypomagnesemia, hypophosphatemia S/P Velcade and decadron therapy. Continue hydration electrolyte correction Monitor CBC and chemistries
[2017-01-17] MEDS ORDERED: DEXTROSE 5%-1/3 NS - 500 ML with POTASSIUM CHLORIDE 10 MEQ IVPB SCH (20:00)
[2017-01-17] MEDS ORDERED: POTASSIUM CHLORIDE 10 MEQ in DEXTROSE 5%-1/3 NS - 500 ML IVPB SCH (20:00)
[2017-01-17] MEDS: POTASSIUM CHLORIDE 10 MEQ in DEXTROSE 5%-1/3 NS - 500 ML IVPB SCH (22:14)
[2017-01-18 00:06] LABS: A/G RATIO 0.8 (0.7-1.7); ALBUMIN 2.7 g/dL (2.9-4.4); ALPHA-1-GLOBULIN 0.4 g/dL (0.0-0.4); BETA GLOBULIN 0.7 g/dL (0.7-1.3); GAMMA GLOBULIN 1.6 g/dL (0.4-1.8); GLOBULIN, TOTAL 3.7 g/dL (2.2-3.9); M-SPIKE 1.2 g/dL (Not Observed); TOTAL PROTEIN 6.4 g/dL (6.0-8.5)
[2017-01-18] MEDS: LORazepam 2 MG/ML SDV VIAL IVPUSH PRN ×3 (00:48→20:39)
[2017-01-18 07:28] LABS: MCH 31.2 pg (25.7-33.7); MCHC 33.3 g/dl (32.0-36.0); MEAN CELL VOLUME 93.9 fl (80-96); MEAN PLT VOLUME 7.8 fl (7.5-11.1); PLATELET COUNT 77 K/MM3 (134-434); RDW 18.2 % (11.6-15.6); WHITE BLOOD COUNT 5.5 K/mm3 (4.0-10.0)
[2017-01-18 07:42] LABS: ANION GAP 8 (8-16); CO2 26 mmol/L (21-32); CREATININE 0.8 mg/dL (0.55-1.02); GLUCOSE,RANDOM 86 mg/dL (74-106)
[2017-01-18 09:50] LABS: METAMYELOCYTE 3 % (0-2); MYELOCYTE 1 % (0-2); PLATELET ESTIMATE DECREASED (NORMAL); TOTAL CELLS COUNTED 100
[2017-01-18] MEDS ORDERED: PANTOPRAZOLE SODIUM 40 MG VIAL ONE (10:20)
[2017-01-18] MEDS ORDERED: SODIUM CHLORIDE 100 ML IVPB ONE (10:20)
[2017-01-18] MEDS: PANTOPRAZOLE SODIUM 40 MG in SODIUM CHLORIDE 100 ML IVPB SCH ×2 (10:25→10:33)
[2017-01-18 10:36] LABS: CALCIUM 6.8 mg/dL (8.5-10.1)
[2017-01-18 10:50] LABS: MAGNESIUM 2.2 mg/dL (1.8-2.4); PHOSPHOROUS 1.4 mg/dL (2.5-4.9)
--- NOTE | 2017-01-18 13:35 | PN ---
Progress Note, Physician History of Present Illness: Pt seen and examined at bedside. She remains lethargic. Family are at bedside. - Current Medication List Current Medications: Active Medications Acetaminophen (Tylenol -) 650 mg PO Q6H PRN PRN Reason: FEVER OR PAIN Last Admin: 01/15/17 17:15 Dose: 650 mg Heparin Sodium (Porcine) (Heparin -) 5,000 unit SQ TID [facility] Last Admin: 01/17/17 22:14 Dose: 5,000 unit Acyclovir 125 mg/ Dextrose 102.5 mls @ 100 mls/hr IVPB Q12H [facility] Last Admin: 01/17/17 18:18 Dose: 100 mls/hr Pantoprazole Sodium 40 mg/ (Sodium Chloride) 100 mls @ 200 mls/hr IVPB DAILY [facility] Last Admin: 01/18/17 10:33 Dose: Not Given Potassium Chloride 10 meq/ (Dextrose/Sodium Chloride) 505 mls @ 75 mls/hr IVPB ASDIR [facility] Last Admin: 01/17/17 22:24 Dose: Not Given Potassium Chloride 10 meq/ (Dextrose/Sodium Chloride) 505 mls @ 75 mls/hr IVPB ASDIR [facility] Last Admin: 01/17/17 22:14 Dose: 75 mls/hr Lorazepam (Ativan Injection -) 0.5 mg IVPUSH Q6H PRN PRN Reason: ANXIETY Last Admin: 01/18/17 08:06 Dose: 0.5 mg Morphine Sulfate (Morphine Injection -) 1 mg IVPUSH Q3H PRN PRN Reason: PAIN Last Admin: 01/17/17 22:14 Dose: 1 mg - Objective Vital Signs: Vital Signs Temperature 98.2 F 01/18/17 01:01 Pulse Rate 95 H 01/18/17 01:01 Respiratory Rate 20 01/18/17 01:01 Blood Pressure 123/78 01/18/17 01:01 O2 Sat by Pulse Oximetry (%) 97 01/17/17 20:18 Constitutional: Yes: Anxious Eyes: Yes: Conjunctiva Clear Cardiovascular: Yes: S1, S2 Respiratory: Yes: On Nasal O2 Gastrointestinal: Yes: Soft Genitourinary: Yes: [place] Present Musculoskeletal: Yes: Muscle Weakness Edema: Yes Edema: LUE: Trace, RUE: Trace, LLE: Trace, RLE: Trace Neurological: Yes: Lethargy Labs: CBC, BMP 01/18/17 06:00 01/18/17 06:00 INR, PTT INR 1.04 (0.82-1.09) 01/12/17 14:30 Problem List - Problems (1) Acute renal failure Code(s): N17.9 - ACUTE KIDNEY FAILURE, UNSPECIFIED Qualifiers: Acute renal failure type: unspecified Qualified Code(s): N17.9 - Acute kidney failure, unspecified (2) Hypercalcemia Code(s): E83.52 - HYPERCALCEMIA (3) Multiple myeloma Code(s): C90.00 - MULTIPLE MYELOMA NOT HAVING ACHIEVED REMISSION Qualifiers: Multiple myeloma remission status: not in remission Qualified Code(s ): C90.00 - Multiple myeloma not having achieved remission Assessment/Plan Current Medications Generic Name Dose Route Start Last Admin Trade Name Freq PRN Reason Stop Dose Admin Acetaminophen 650 mg 01/14/17 20:09 01/15/17 17:15 Tylenol - PO 650 mg Q6H PRN Administration FEVER OR PAIN Heparin Sodium (Porcine) 5,000 unit 01/17/17 06:00 01/17/17 22:14 Heparin - SQ 5,000 unit TID [facility] Administration Acyclovir 125 mg/ Dextrose 102.5 mls @ 100 mls/hr 01/16/17 18:15 01/17/17 18:18 IVPB 100 mls/hr Q12H [facility] Administration Pantoprazole Sodium 40 mg/ 100 mls @ 200 mls/hr 01/17/17 10:00 01/18/17 10:33 Sodium Chloride IVPB Not Given DAILY [facility] Potassium Chloride 10 meq/ 505 mls @ 75 mls/hr 01/17/17 20:00 01/17/17 22:24 Dextrose/Sodium Chloride IVPB Not Given ASDIR [facility] Potassium Chloride 10 meq/ 505 mls @ 75 mls/hr 01/17/17 20:00 01/17/17 22:14 Dextrose/Sodium Chloride IVPB 75 mls/hr ASDIR [facility] Administration Lorazepam 0.5 mg 01/17/17 12:28 01/18/17 08:06 Ativan Injection - IVPUSH 0.5 mg Q6H PRN Administration ANXIETY Morphine Sulfate 1 mg 01/17/17 21:54 01/17/17 22:14 Morphine Injection - IVPUSH 1 mg Q3H PRN Administration PAIN Laboratory Tests 01/18/17 06:00 Phosphorus 1.4 L Magnesium 2.2 D Impression 1. Hypercalcemia improving 2. SHANIA 3. anemia 4. hypokalemia 5. multiple myeloma Plan - discussed with family - will start clinimix, family are in agreement - replace phos - repeat labs in am - discussed with attending - renal function improving - calcium improving - follow up PTH - prognosis guarded Dr Soto
[2017-01-18] MEDS: HEPARIN NA (PORCINE) 5,000 UNITS/ML 1ML VIAL SQ SCH ×3 (14:40→21:53)
--- NOTE | 2017-01-18 14:57 | PN ---
Progress Note, Physician Chief Complaint: Unable to obtain - Current Medication List Current Medications: Active Medications Acetaminophen (Tylenol -) 650 mg PO Q6H PRN PRN Reason: FEVER OR PAIN Last Admin: 01/15/17 17:15 Dose: 650 mg Heparin Sodium (Porcine) (Heparin -) 5,000 unit SQ TID [facility] Last Admin: 01/17/17 22:14 Dose: 5,000 unit Acyclovir 125 mg/ Dextrose 102.5 mls @ 100 mls/hr IVPB Q12H [facility] Last Admin: 01/17/17 18:18 Dose: 100 mls/hr Pantoprazole Sodium 40 mg/ (Sodium Chloride) 100 mls @ 200 mls/hr IVPB DAILY [facility] Last Admin: 01/18/17 10:33 Dose: Not Given Potassium Chloride 10 meq/ (Dextrose/Sodium Chloride) 505 mls @ 75 mls/hr IVPB ASDIR [facility] Last Admin: 01/17/17 22:14 Dose: 75 mls/hr Amino Acids (Clinimix -) 1,000 mls @ 42 mls/hr IV Q12H [facility] Potassium Phosphate 15 mm/ (Dextrose) 255 mls @ 62.5 mls/hr IVPB ONCE ONE Stop: 01/18/17 17:39 Lorazepam (Ativan Injection -) 0.5 mg IVPUSH Q6H PRN PRN Reason: ANXIETY Last Admin: 01/18/17 08:06 Dose: 0.5 mg Morphine Sulfate (Morphine Injection -) 1 mg IVPUSH Q3H PRN PRN Reason: PAIN Last Admin: 01/17/17 22:14 Dose: 1 mg - Objective Vital Signs: Vital Signs Temperature 36.6 C 01/18/17 14:07 Pulse Rate 91 H 01/18/17 14:07 Respiratory Rate 20 01/18/17 14:07 Blood Pressure 128/76 01/18/17 14:07 O2 Sat by Pulse Oximetry (%) 97 01/17/17 20:18 Constitutional: Yes: Calm, Other (moaning) Cardiovascular: Yes: Regular Rate and Rhythm. No: Gallop, Murmur, Rub Respiratory: Yes: Regular, CTA Bilaterally, On Venti-Mask. No: Rales, Rhonchi, Wheezes Gastrointestinal: Yes: Normal Bowel Sounds, Soft. No: Distention, Tenderness Extremities: Yes: WNL Edema: Yes Edema: LLE: Trace, RLE: Trace Labs: CBC, BMP 01/18/17 06:00 01/18/17 06:00 INR, PTT INR 1.04 (0.82-1.09) 01/12/17 14:30 Problem List - Problems (1) Multiple myeloma Code(s): C90.00 - MULTIPLE MYELOMA NOT HAVING ACHIEVED REMISSION Qualifiers: Multiple myeloma remission status: not in remission Qualified Code(s ): C90.00 - Multiple myeloma not having achieved remission (2) Acute renal failure Code(s): N17.9 - ACUTE KIDNEY FAILURE, UNSPECIFIED Qualifiers: Acute renal failure type: unspecified Qualified Code(s): N17.9 - Acute kidney failure, unspecified (3) Hypercalcemia Code(s): E83.52 - HYPERCALCEMIA (4) Metabolic encephalopathy Code(s): G93.41 - METABOLIC ENCEPHALOPATHY Assessment/Plan (1) Multiple myeloma Assessment/Plan: -received velcade -no improvement noted -continue supportive care Code(s): C90.00 - MULTIPLE MYELOMA NOT HAVING ACHIEVED REMISSION Qualifiers: Multiple myeloma remission status: not in remission Qualified Code(s ): C90.00 - Multiple myeloma not having achieved remission (2) Acute renal failure Assessment/Plan: -resolved Code(s): N17.9 - ACUTE KIDNEY FAILURE, UNSPECIFIED Qualifiers: Acute renal failure type: unspecified Qualified Code(s): N17.9 - Acute kidney failure, unspecified (3) Hypercalcemia Assessment/Plan: -received zometa and calcitonin -resolved -nephrology following Code(s): E83.52 - HYPERCALCEMIA (4) Metabolic encephalopathy -secondary to multiple myeloma and pain medications -monitor, not improved since Monday (5) Anemia -transfused with good response (6) FEN -start clinimix today Dispo -patient with very poor prognosis -continue discussion with family about goals of care
[2017-01-18] MEDS ORDERED: POTASSIUM PHOSPHATE 15 MM in DEXTROSE 5%-WATER - 250 ML IVPB ONE (15:30)
[2017-01-18] MEDS: AMINO ACIDS 4.25%/D5W 1,000 ML IV SCH (16:51)
[2017-01-18] MEDS: DEXTROSE 5% IVPB SCH ×2 (17:59→20:00)
[2017-01-18] MEDS: ACYCLOVIR IVPB SCH ×2 (17:59→20:00)
[2017-01-18] MEDS: WATER IVPB SCH ×2 (17:59→20:00)
--- NOTE | 2017-01-18 19:11 | PN ---
Progress Note (short form) - Note Progress Note: Patient seen and examined more alert, moaning Last Vital Signs Temp Pulse Resp BP Pulse Ox 97.6 F 100 H 20 114/72 97 01/18/17 18:00 01/18/17 18:00 01/18/17 18:00 01/18/17 18:00 01/18/17 09:00 Cor: RSR, No murmurs, No gallops Lungs: decreased at bases Abd: Soft, Normal bowel sounds, No organomegaly Ext:No significant edema Abnormal Lab Results 01/14/17 01/14/17 01/18/17 06:05 06:05 06:00 RBC 2.79 L Hgb 8.7 L Hct 26.2 L RDW 18.2 H Plt Count 77 L Sodium Chloride BUN Calcium 11.0 H Phosphorus Albumin 2.7 L IgA 12 L IgM 12 L TOM M-[place] 1.2 H Free [place] LC, Quant 4106.5 H Free Lambda LC, Quant 3.2 L Free [place]/Lambda Ratio 1283.28 H 01/18/17 06:00 RBC Hgb Hct RDW Plt Count Sodium 151 H Chloride 117 H BUN 26 H D Calcium 6.8 L* Phosphorus 1.4 L Albumin IgA IgM TOM M-[place] Free [place] LC, Quant Free Lambda LC, Quant Free [place]/Lambda Ratio Home Medication List Medication Instructions Recorded Confirmed Type NK [No Known Home Medication] 01/12/17 01/12/17 History Active Medications Generic Name Dose Route Start Last Admin Trade Name Freq PRN Reason Stop Dose Admin Acetaminophen 650 mg 01/14/17 20:09 01/15/17 17:15 Tylenol - PO 650 mg Q6H PRN Administration FEVER OR PAIN Heparin Sodium (Porcine) 5,000 unit 01/17/17 06:00 01/18/17 16:52 Heparin - SQ 5,000 unit TID [facility] Administration Acyclovir 125 mg/ Dextrose 102.5 mls @ 100 mls/hr 01/16/17 18:15 01/18/17 17:59 IVPB 100 mls/hr Q12H [facility] Administration Pantoprazole Sodium 40 mg/ 100 mls @ 200 mls/hr 01/17/17 10:00 01/18/17 10:33 Sodium Chloride IVPB Not Given DAILY [facility] Potassium Chloride 10 meq/ 505 mls @ 75 mls/hr 01/17/17 20:00 01/17/17 22:14 Dextrose/Sodium Chloride IVPB 75 mls/hr ASDIR [facility] Administration Amino Acids 1,000 mls @ 42 mls/hr 01/18/17 13:45 01/18/17 16:51 Clinimix - IV 42 mls/hr Q12H [facility] Administration Potassium Phosphate 15 mm/ 255 mls @ 62.5 mls/hr 01/18/17 15:30 01/18/17 16:53 Dextrose IVPB 01/18/17 19:34 62.5 mls/hr ONCE ONE Administration Lorazepam 0.5 mg 01/17/17 12:28 01/18/17 08:06 Ativan Injection - IVPUSH 0.5 mg Q6H PRN Administration ANXIETY Morphine Sulfate 1 mg 01/17/17 21:54 01/17/17 22:14 Morphine Injection - IVPUSH 1 mg Q3H PRN Administration PAIN A/P 81 y/o patient with Multiple Myeloma Hypercalcemia Altered Mental status SHANIA Bone pains s/p velcade /dex C1 D3 discussed with daughter--possiblity of bonmets/cord compression. Rediscussed goals of care/? extent of intervention ongoing discussion
[2017-01-18] MEDS: POTASSIUM CHLORIDE 10 MEQ in DEXTROSE 5%-1/3 NS - 500 ML IVPB SCH (20:47)
[2017-01-19] MEDS: morphine CARPU-JECT 2 MG/1 ML DISP.SYRIN IVPUSH PRN (00:08)
[2017-01-19] MEDS: AMINO ACIDS 4.25%/D5W 1,000 ML IV SCH ×3 (02:22→15:45)
[2017-01-19] MEDS: LORazepam 2 MG/ML SDV VIAL IVPUSH PRN (04:35)
[2017-01-19] MEDS: ACYCLOVIR IVPB SCH ×2 (06:43→18:06)
[2017-01-19] MEDS: HEPARIN NA (PORCINE) 5,000 UNITS/ML 1ML VIAL SQ SCH ×3 (06:43→21:18)
[2017-01-19] MEDS: DEXTROSE 5% IVPB SCH ×2 (06:43→18:06)
[2017-01-19] MEDS: WATER IVPB SCH ×2 (06:43→18:06)
[2017-01-19] MEDS ORDERED: SODIUM CHLORIDE 500 ML IV ONE (07:00)
[2017-01-19 09:07] LABS: ALBUMIN 2.2 g/dl (3.4-5.0); ANION GAP 7 (8-16); CO2 23 mmol/L (21-32); GLUCOSE,RANDOM 75 mg/dL (74-106); MAGNESIUM 1.6 mg/dL (1.8-2.4)
[2017-01-19 09:11] LABS: ALK PHOS 117 U/L (45-117); BILIRUBIN,TOTAL 0.3 mg/dL (0.2-1.0); CREATININE 0.6 mg/dL (0.55-1.02); PHOSPHOROUS 1.4 mg/dL (2.5-4.9); SGOT/AST 49 U/L (15-37); SGPT/ALT 36 U/L (12-78)
[2017-01-19] MEDS ORDERED: PANTOPRAZOLE SODIUM 40 MG VIAL ONE (09:14)
[2017-01-19] MEDS ORDERED: SODIUM CHLORIDE 100 ML IVPB ONE (09:14)
[2017-01-19 09:42] LABS: CALCIUM 6.4 mg/dL (8.5-10.1)
[2017-01-19] MEDS: PANTOPRAZOLE SODIUM 40 MG in SODIUM CHLORIDE 100 ML IVPB SCH (09:44)
[2017-01-19] MEDS ORDERED: MAGNESIUM SULF 50% (8.12 MEQ/2 ML-1 GM VIAL) IVPB ONE (12:00)
[2017-01-19] MEDS ORDERED: POTASSIUM PHOSPHATE 16 MM in DEXTROSE 5%-WATER - 250 ML IVPB ONE (12:15)
--- NOTE | 2017-01-19 14:36 | PN ---
Progress Note, Physician History of Present Illness: Pt seen and examined at bedside. She is more arousable today. Pt however is still very weak. - Current Medication List Current Medications: Active Medications Acetaminophen (Tylenol -) 650 mg PO Q6H PRN PRN Reason: FEVER OR PAIN Last Admin: 01/15/17 17:15 Dose: 650 mg Heparin Sodium (Porcine) (Heparin -) 5,000 unit SQ TID [facility] Last Admin: 01/19/17 13:10 Dose: 5,000 unit Acyclovir 125 mg/ Dextrose 102.5 mls @ 100 mls/hr IVPB Q12H [facility] Last Admin: 01/19/17 06:43 Dose: Not Given Pantoprazole Sodium 40 mg/ (Sodium Chloride) 100 mls @ 200 mls/hr IVPB DAILY [facility] Last Admin: 01/19/17 09:44 Dose: 200 mls/hr Potassium Chloride 10 meq/ (Dextrose/Sodium Chloride) 505 mls @ 75 mls/hr IVPB ASDIR [facility] Last Admin: 01/18/17 20:47 Dose: Not Given Amino Acids (Clinimix -) 1,000 mls @ 42 mls/hr IV Q12H [facility] Last Admin: 01/19/17 13:24 Dose: 42 mls/hr Potassium Phosphate 16 mm/ (Dextrose) 255.3333 mls @ 63.833 mls/hr IVPB ONCE ONE Stop: 01/19/17 16:14 Last Admin: 01/19/17 13:06 Dose: 63.833 mls/hr Lorazepam (Ativan Injection -) 0.5 mg IVPUSH Q6H PRN PRN Reason: ANXIETY Last Admin: 01/19/17 04:35 Dose: 0.5 mg Morphine Sulfate (Morphine Injection -) 1 mg IVPUSH Q3H PRN PRN Reason: PAIN Last Admin: 01/19/17 00:08 Dose: 1 mg - Objective Vital Signs: Vital Signs Temperature 98.7 F 01/19/17 13:50 Pulse Rate 98 H 01/19/17 13:50 Respiratory Rate 20 01/19/17 13:50 Blood Pressure 108/66 01/19/17 13:50 O2 Sat by Pulse Oximetry (%) 96 01/19/17 09:00 Constitutional: Yes: Calm Eyes: Yes: Conjunctiva Clear Cardiovascular: Yes: S1, S2 Respiratory: Yes: On Nasal O2 Gastrointestinal: Yes: Soft Genitourinary: Yes: Incontinence Musculoskeletal: Yes: Muscle Weakness Edema: No Edema: LUE: Trace, RUE: Trace Neurological: Yes: Lethargy Labs: CBC, BMP 01/18/17 06:00 01/19/17 08:00 INR, PTT INR 1.04 (0.82-1.09) 01/12/17 14:30 Problem List - Problems (1) Acute renal failure Code(s): N17.9 - ACUTE KIDNEY FAILURE, UNSPECIFIED Qualifiers: Acute renal failure type: unspecified Qualified Code(s): N17.9 - Acute kidney failure, unspecified (2) Hypercalcemia Code(s): E83.52 - HYPERCALCEMIA (3) Multiple myeloma Code(s): C90.00 - MULTIPLE MYELOMA NOT HAVING ACHIEVED REMISSION Qualifiers: Multiple myeloma remission status: not in remission Qualified Code(s ): C90.00 - Multiple myeloma not having achieved remission Assessment/Plan Current Medications Generic Name Dose Route Start Last Admin Trade Name Freq PRN Reason Stop Dose Admin Acetaminophen 650 mg 01/14/17 20:09 01/15/17 17:15 Tylenol - PO 650 mg Q6H PRN Administration FEVER OR PAIN Heparin Sodium (Porcine) 5,000 unit 01/17/17 06:00 01/19/17 13:10 Heparin - SQ 5,000 unit TID [facility] Administration Acyclovir 125 mg/ Dextrose 102.5 mls @ 100 mls/hr 01/16/17 18:15 01/19/17 06:43 IVPB Not Given Q12H [facility] Pantoprazole Sodium 40 mg/ 100 mls @ 200 mls/hr 01/17/17 10:00 01/19/17 09:44 Sodium Chloride IVPB 200 mls/hr DAILY [facility] Administration Potassium Chloride 10 meq/ 505 mls @ 75 mls/hr 01/17/17 20:00 01/18/17 20:47 Dextrose/Sodium Chloride IVPB Not Given ASDIR [facility] Amino Acids 1,000 mls @ 42 mls/hr 01/18/17 13:45 01/19/17 13:24 Clinimix - IV 42 mls/hr Q12H [facility] Administration Potassium Phosphate 16 mm/ 255.3333 mls @ 63.833 mls/hr 01/19/17 12:15 13:06 Dextrose IVPB 01/19/17 16:14 63.833 mls/hr ONCE ONE Administration Lorazepam 0.5 mg 01/17/17 12:28 01/19/17 04:35 Ativan Injection - IVPUSH 0.5 mg Q6H PRN Administration ANXIETY Morphine Sulfate 1 mg 01/17/17 21:54 01/19/17 00:08 Morphine Injection - IVPUSH 1 mg Q3H PRN Administration PAIN Laboratory Tests 01/14/17 06:05 PTH Intact 31 Impression 1. Hypercalcemia improving 2. SHANIA 3. anemia 4. hypokalemia 5. multiple myeloma 6. malnutrition 7. failure to thrive Plan - corrected calcium is 7.8 - repeat cmp in am - cont clinimix, can increase rate - replace phos and mag - repeat labs in am - discussed with family - pth is appropriately low - prognosis guarded Dr Soto
--- NOTE | 2017-01-19 14:43 | PN ---
Progress Note, Physician Chief Complaint: Unable to obtain, but patient more awake today. Mumbled a few words but otherwise was not interactive. - Current Medication List Current Medications: Active Medications Acetaminophen (Tylenol -) 650 mg PO Q6H PRN PRN Reason: FEVER OR PAIN Last Admin: 01/15/17 17:15 Dose: 650 mg Heparin Sodium (Porcine) (Heparin -) 5,000 unit SQ TID [facility] Last Admin: 01/19/17 13:10 Dose: 5,000 unit Acyclovir 125 mg/ Dextrose 102.5 mls @ 100 mls/hr IVPB Q12H [facility] Last Admin: 01/19/17 06:43 Dose: Not Given Pantoprazole Sodium 40 mg/ (Sodium Chloride) 100 mls @ 200 mls/hr IVPB DAILY [facility] Last Admin: 01/19/17 09:44 Dose: 200 mls/hr Potassium Chloride 10 meq/ (Dextrose/Sodium Chloride) 505 mls @ 75 mls/hr IVPB ASDIR [facility] Last Admin: 01/18/17 20:47 Dose: Not Given Potassium Phosphate 16 mm/ (Dextrose) 255.3333 mls @ 63.833 mls/hr IVPB ONCE ONE Stop: 01/19/17 16:14 Last Admin: 01/19/17 13:06 Dose: 63.833 mls/hr Amino Acids (Clinimix -) 1,000 mls @ 55 mls/hr IV Q12H [facility] Lorazepam (Ativan Injection -) 0.5 mg IVPUSH Q6H PRN PRN Reason: ANXIETY Last Admin: 01/19/17 04:35 Dose: 0.5 mg Morphine Sulfate (Morphine Injection -) 1 mg IVPUSH Q3H PRN PRN Reason: PAIN Last Admin: 01/19/17 00:08 Dose: 1 mg - Objective Vital Signs: Vital Signs Temperature 37.1 C 01/19/17 13:50 Pulse Rate 98 H 01/19/17 13:50 Respiratory Rate 20 01/19/17 13:50 Blood Pressure 108/66 01/19/17 13:50 O2 Sat by Pulse Oximetry (%) 96 01/19/17 09:00 Constitutional: Yes: No Distress Cardiovascular: Yes: Regular Rate and Rhythm. No: Gallop, Murmur, Rub Respiratory: Yes: Regular, CTA Bilaterally. No: Rales, Rhonchi, Wheezes Gastrointestinal: Yes: Normal Bowel Sounds, Soft. No: Distention, Tenderness Extremities: Yes: WNL Edema: Yes Edema: LUE: Trace, RUE: Trace, LLE: Trace, RLE: Trace Labs: CBC, BMP 01/18/17 06:00 01/19/17 08:00 INR, PTT INR 1.04 (0.82-1.09) 01/12/17 14:30 Problem List - Problems (1) Multiple myeloma Code(s): C90.00 - MULTIPLE MYELOMA NOT HAVING ACHIEVED REMISSION Qualifiers: Multiple myeloma remission status: not in remission Qualified Code(s ): C90.00 - Multiple myeloma not having achieved remission (2) Acute renal failure Code(s): N17.9 - ACUTE KIDNEY FAILURE, UNSPECIFIED Qualifiers: Acute renal failure type: unspecified Qualified Code(s): N17.9 - Acute kidney failure, unspecified (3) Hypercalcemia Code(s): E83.52 - HYPERCALCEMIA (4) Metabolic encephalopathy Code(s): G93.41 - METABOLIC ENCEPHALOPATHY Assessment/Plan (1) Multiple myeloma Assessment/Plan: -received velcade -slight improvement but still very confused -velcade and dexamethasone ordered for today Code(s): C90.00 - MULTIPLE MYELOMA NOT HAVING ACHIEVED REMISSION Qualifiers: Multiple myeloma remission status: not in remission Qualified Code(s ): C90.00 - Multiple myeloma not having achieved remission (2) Acute renal failure Assessment/Plan: -resolved Code(s): N17.9 - ACUTE KIDNEY FAILURE, UNSPECIFIED Qualifiers: Acute renal failure type: unspecified Qualified Code(s): N17.9 - Acute kidney failure, unspecified (3) Hypercalcemia Assessment/Plan: -received zometa and calcitonin -resolved -nephrology following Code(s): E83.52 - HYPERCALCEMIA (4) Metabolic encephalopathy -secondary to multiple myeloma and pain medications -slightly improved (5) Anemia -transfused with good response (6) FEN -continue clinimix -replace mg and phos Dispo -patient with very poor prognosis -continue discussion with family about goals of care
[2017-01-19 15:22] LABS: MCH 31.5 pg (25.7-33.7); MCHC 33.6 g/dl (32.0-36.0); MEAN CELL VOLUME 93.5 fl (80-96); MEAN PLT VOLUME 8.3 fl (7.5-11.1); PLATELET COUNT 79 K/MM3 (134-434); RDW 17.3 % (11.6-15.6); WHITE BLOOD COUNT 5.1 K/mm3 (4.0-10.0)
[2017-01-19] MEDS ORDERED: CALCIUM GLUCONATE 10% - 1,000 MG/10 ML VIAL IVPB ONE (15:41)
[2017-01-19 15:49] LABS: PLATELET ESTIMATE ADEQUATE (NORMAL); TOTAL CELLS COUNTED 100
[2017-01-19 15:50] LABS: MYELOCYTE 2 % (0-2)
[2017-01-19] MEDS ORDERED: DEXAMETHASONE INJECTION 20 MG in SODIUM CHLORIDE 50 ML IVPB ONE (17:00)
[2017-01-19] MEDS ORDERED: BORTEZOMIB (VELCADE) 2.5 MG/ML SUB-Q INJECTION SQ ONE (17:30)
[2017-01-19] MEDS: POTASSIUM CHLORIDE 10 MEQ in DEXTROSE 5%-1/3 NS - 500 ML IVPB SCH (20:05)
--- NOTE | 2017-01-19 23:00 | PN ---
Progress Note (short form) - Note Progress Note: Patient seen and examined more alert, moaning Last Vital Signs Temp Pulse Resp BP Pulse Ox 98.2 F 95 H 20 107/57 96 01/19/17 18:00 01/19/17 18:00 01/19/17 18:00 01/19/17 18:00 01/19/17 09:00 Cor: RSR, No murmurs, No gallops Lungs: decreased at bases Abd: Soft, Normal bowel sounds, No organomegaly Ext:No significant edema Abnormal Lab Results 01/16/17 01/19/17 01/19/17 14:20 08:00 14:45 RBC 2.76 L Hgb 8.7 L Hct 25.8 L RDW 17.3 H Plt Count 79 L Chloride 113 H Anion Gap 7 L BUN 25 H Calcium 6.4 L* Phosphorus 1.4 L Magnesium 1.6 L D AST 49 H D Total Protein 5.0 L Albumin 2.2 L Crossmatch See Detail Home Medication List Medication Instructions Recorded Confirmed Type NK [No Known Home Medication] 01/12/17 01/12/17 History Active Medications Generic Name Dose Route Start Last Admin Trade Name Freq PRN Reason Stop Dose Admin Acetaminophen 650 mg 01/14/17 20:09 01/15/17 17:15 Tylenol - PO 650 mg Q6H PRN Administration FEVER OR PAIN Heparin Sodium (Porcine) 5,000 unit 01/17/17 06:00 01/19/17 21:18 Heparin - SQ 5,000 unit TID [facility] Administration Acyclovir 125 mg/ Dextrose 102.5 mls @ 100 mls/hr 01/16/17 18:15 01/19/17 18:06 IVPB Not Given Q12H [facility] Pantoprazole Sodium 40 mg/ 100 mls @ 200 mls/hr 01/17/17 10:00 01/19/17 09:44 Sodium Chloride IVPB 200 mls/hr DAILY [facility] Administration Potassium Chloride 10 meq/ 505 mls @ 75 mls/hr 01/17/17 20:00 01/19/17 20:05 Dextrose/Sodium Chloride IVPB Not Given ASDIR [facility] Amino Acids 1,000 mls @ 55 mls/hr 01/19/17 14:38 01/19/17 15:45 Clinimix - IV 55 mls/hr Q18H [facility] Administration Lorazepam 0.5 mg 01/17/17 12:28 01/19/17 04:35 Ativan Injection - IVPUSH 0.5 mg Q6H PRN Administration ANXIETY Morphine Sulfate 1 mg 01/17/17 21:54 01/19/17 00:08 Morphine Injection - IVPUSH 1 mg Q3H PRN Administration PAIN A/P 81 y/o patient with Multiple Myeloma Hypercalcemia Altered Mental status SHANIA Bone pains s/p velcade /dex C1 D4---- redosed velcade/dex discussed with daughters in great detail--possiblity of bonemets/cord compression. Rediscussed goals of care/? extent of intervention. They undersatnd that cord compression is an emergency and chances of recovery from paralysis are lesser if there is delay in diagnosis and therapy. but at this time they do not want to pursue imaging studies. discussed in great detail --imaging studies needed to diagnose cord compression , treatment etc. At this time they do not want to pursue further w/u
[2017-01-20] MEDS: morphine CARPU-JECT 2 MG/1 ML DISP.SYRIN IVPUSH PRN (03:53)
[2017-01-20] MEDS: DEXTROSE 5% IVPB SCH ×2 (05:46→17:22)
[2017-01-20] MEDS: ACYCLOVIR IVPB SCH ×2 (05:46→17:22)
[2017-01-20] MEDS: WATER IVPB SCH ×2 (05:46→17:22)
[2017-01-20] MEDS: HEPARIN NA (PORCINE) 5,000 UNITS/ML 1ML VIAL SQ SCH ×4 (06:17→22:45)
[2017-01-20 07:52] LABS: ANION GAP 11 (8-16); CO2 20 mmol/L (21-32); CREATININE 0.7 mg/dL (0.55-1.02); GLUCOSE,RANDOM 133 mg/dL (74-106); MAGNESIUM 1.8 mg/dL (1.8-2.4)
[2017-01-20] MEDS: AMINO ACIDS 4.25%/D5W 1,000 ML IV SCH (08:41)
[2017-01-20 09:18] LABS: CALCIUM 6.2 mg/dL (8.5-10.1)
[2017-01-20] MEDS ORDERED: SODIUM CHLORIDE 100 ML IVPB ONE (10:08)
[2017-01-20] MEDS ORDERED: PANTOPRAZOLE SODIUM 40 MG VIAL ONE (10:08)
[2017-01-20] MEDS: PANTOPRAZOLE SODIUM 40 MG in SODIUM CHLORIDE 100 ML IVPB SCH (10:25)
--- NOTE | 2017-01-20 11:45 | PN ---
Progress Note, Physician Chief Complaint: Patient awake and saying she is feeling better today. Denies cp, sob, n/v. Says she wants to sit in a chair. - Current Medication List Current Medications: Active Medications Acetaminophen (Tylenol -) 650 mg PO Q6H PRN PRN Reason: FEVER OR PAIN Last Admin: 01/15/17 17:15 Dose: 650 mg Heparin Sodium (Porcine) (Heparin -) 5,000 unit SQ TID [facility] Last Admin: 01/20/17 06:24 Dose: Not Given Acyclovir 125 mg/ Dextrose 102.5 mls @ 100 mls/hr IVPB Q12H [facility] Last Admin: 01/20/17 05:46 Dose: Not Given Pantoprazole Sodium 40 mg/ (Sodium Chloride) 100 mls @ 200 mls/hr IVPB DAILY [facility] Last Admin: 01/20/17 10:25 Dose: 200 mls/hr Potassium Chloride 10 meq/ (Dextrose/Sodium Chloride) 505 mls @ 75 mls/hr IVPB ASDIR [facility] Last Admin: 01/19/17 20:05 Dose: Not Given Amino Acids (Clinimix -) 1,000 mls @ 55 mls/hr IV Q18H [facility] Last Admin: 01/20/17 08:41 Dose: 55 mls/hr Lorazepam (Ativan Injection -) 0.5 mg IVPUSH Q6H PRN PRN Reason: ANXIETY Last Admin: 01/19/17 04:35 Dose: 0.5 mg Morphine Sulfate (Morphine Injection -) 1 mg IVPUSH Q3H PRN PRN Reason: PAIN Last Admin: 01/20/17 03:53 Dose: 1 mg - Objective Vital Signs: Vital Signs Temperature 36.8 C 01/20/17 10:00 Pulse Rate 99 H 01/20/17 10:00 Respiratory Rate 20 01/20/17 10:00 Blood Pressure 110/65 01/20/17 10:00 O2 Sat by Pulse Oximetry (%) 95 01/19/17 21:00 Constitutional: Yes: Well Nourished, No Distress, Calm Cardiovascular: Yes: Regular Rate and Rhythm. No: Gallop, Murmur, Rub Respiratory: Yes: Regular, CTA Bilaterally. No: Rales, Rhonchi, Wheezes Gastrointestinal: Yes: Normal Bowel Sounds, Soft. No: Distention, Tenderness Extremities: Yes: WNL Edema: No Labs: CBC, BMP 01/19/17 14:45 01/20/17 06:00 INR, PTT INR 1.04 (0.82-1.09) 01/12/17 14:30 Problem List - Problems (1) Multiple myeloma Code(s): C90.00 - MULTIPLE MYELOMA NOT HAVING ACHIEVED REMISSION Qualifiers: Multiple myeloma remission status: not in remission Qualified Code(s ): C90.00 - Multiple myeloma not having achieved remission (2) Acute renal failure Code(s): N17.9 - ACUTE KIDNEY FAILURE, UNSPECIFIED Qualifiers: Acute renal failure type: unspecified Qualified Code(s): N17.9 - Acute kidney failure, unspecified (3) Hypercalcemia Code(s): E83.52 - HYPERCALCEMIA (4) Metabolic encephalopathy Code(s): G93.41 - METABOLIC ENCEPHALOPATHY Assessment/Plan (1) Multiple myeloma Assessment/Plan: -received velcade and dexamethasone -oncology following Code(s): C90.00 - MULTIPLE MYELOMA NOT HAVING ACHIEVED REMISSION Qualifiers: Multiple myeloma remission status: not in remission Qualified Code(s ): C90.00 - Multiple myeloma not having achieved remission (2) Acute renal failure Assessment/Plan: -resolved Code(s): N17.9 - ACUTE KIDNEY FAILURE, UNSPECIFIED Qualifiers: Acute renal failure type: unspecified Qualified Code(s): N17.9 - Acute kidney failure, unspecified (3) Hypercalcemia Assessment/Plan: -received zometa and calcitonin -resolved -nephrology following Code(s): E83.52 - HYPERCALCEMIA (4) Metabolic encephalopathy -much improved today -continue supportive care (5) Anemia -transfused with good response (6) FEN -hold clinimix per nephrology -phos severely depleted -K Phos 30mmol given over 8 hours
[2017-01-20] MEDS ORDERED: POTASSIUM PHOSPHATE 16 MM in DEXTROSE 5%-WATER - 250 ML IVPB ONE (13:51)
[2017-01-20] MEDS ORDERED: POTASSIUM PHOSPHATE 30 MM in DEXTROSE 5%-WATER - 250 ML IVPB ONE (13:54)
[2017-01-20] MEDS ORDERED: POTASSIUM PHOSPHATE 30 MM in DEXTROSE 5%-WATER - 500 ML IVPB ONE (14:30)
--- NOTE | 2017-01-20 14:38 | PN ---
Progress Note (short form) - Note Progress Note: Patient seen and examined more alert, following commands Last Vital Signs Temp Pulse Resp BP Pulse Ox 98.2 F 101 H 18 121/69 95 01/20/17 13:31 01/20/17 13:31 01/20/17 13:31 01/20/17 13:31 01/20/17 09:00 Cor: RSR, No murmurs, No gallops Lungs: decreased at bases Abd: Soft, Normal bowel sounds, No organomegaly Ext:No significant edema Abnormal Lab Results 01/16/17 01/19/17 01/20/17 14:20 14:45 06:00 RBC 2.76 L Hgb 8.7 L Hct 25.8 L RDW 17.3 H Plt Count 79 L Potassium 3.4 L Chloride 110 H Carbon Dioxide 20 L BUN 27 H Random Glucose 133 H D Calcium 6.2 L* Phosphorus Crossmatch See Detail 01/20/17 12:30 RBC Hgb Hct RDW Plt Count Potassium Chloride Carbon Dioxide BUN Random Glucose Calcium Phosphorus 0.9 L* Crossmatch Active Medications Generic Name Dose Route Start Last Admin Trade Name Freq PRN Reason Stop Dose Admin Acetaminophen 650 mg 01/14/17 20:09 01/15/17 17:15 Tylenol - PO 650 mg Q6H PRN Administration FEVER OR PAIN Heparin Sodium (Porcine) 5,000 unit 01/17/17 06:00 01/20/17 06:24 Heparin - SQ Not Given TID TOMÁS Acyclovir 125 mg/ Dextrose 102.5 mls @ 100 mls/hr 01/16/17 18:15 01/20/17 05:46 IVPB Not Given Q12H [facility] Pantoprazole Sodium 40 mg/ 100 mls @ 200 mls/hr 01/17/17 10:00 01/20/17 10:25 Sodium Chloride IVPB 200 mls/hr DAILY [facility] Administration Potassium Chloride 10 meq/ 505 mls @ 75 mls/hr 01/17/17 20:00 01/19/17 20:05 Dextrose/Sodium Chloride IVPB Not Given ASDIR [facility] Amino Acids 1,000 mls @ 55 mls/hr 01/19/17 14:38 01/20/17 08:41 Clinimix - IV 55 mls/hr Q18H [facility] Administration Potassium Phosphate 30 mm/ 510 mls @ 63.75 mls/hr 01/20/17 14:30 Dextrose IVPB 01/20/17 22:29 ONCE ONE 30 MM/8 HR Lorazepam 0.5 mg 01/17/17 12:28 01/19/17 04:35 Ativan Injection - IVPUSH 0.5 mg Q6H PRN Administration ANXIETY Morphine Sulfate 1 mg 01/17/17 21:54 01/20/17 03:53 Morphine Injection - IVPUSH 1 mg Q3H PRN Administration PAIN Potassium Phos/Sodium Phos 1 packet 01/20/17 14:00 Phos-Nak Packet - PO TID TOM[facility]S A/P 81 y/o patient with Multiple Myeloma Hypercalcemia Altered Mental status SHANIA Bone pains s/p velcade /dex C1 D5---- redosed velcade/dex yesterday discussed with daughters in great detail--possiblity of bonemets/cord compression. Rediscussed goals of care/? extent of intervention. They undersatnd that cord compression is an emergency and chances of recovery from paralysis are lesser if there is delay in diagnosis and therapy. but at this time they do not want to pursue imaging studies. discussed in great detail --imaging studies needed to diagnose cord compression , treatment etc. At this time they do not want to pursue further w/u
[2017-01-20] MEDS: NAPH,MB-DB/K PH,MBDB POWDER PACKET PO SCH ×2 (15:46→22:43)
--- NOTE | 2017-01-20 16:03 | PN ---
Progress Note, Physician History of Present Illness: Pt seen and examined at bedside. She is more awake and alert today. She is starting to take in solid food. - Current Medication List Current Medications: Active Medications Acetaminophen (Tylenol -) 650 mg PO Q6H PRN PRN Reason: FEVER OR PAIN Last Admin: 01/15/17 17:15 Dose: 650 mg Heparin Sodium (Porcine) (Heparin -) 5,000 unit SQ TID [facility] Last Admin: 01/20/17 15:46 Dose: 5,000 unit Acyclovir 125 mg/ Dextrose 102.5 mls @ 100 mls/hr IVPB Q12H [facility] Last Admin: 01/20/17 05:46 Dose: Not Given Pantoprazole Sodium 40 mg/ (Sodium Chloride) 100 mls @ 200 mls/hr IVPB DAILY [facility] Last Admin: 01/20/17 10:25 Dose: 200 mls/hr Potassium Chloride 10 meq/ (Dextrose/Sodium Chloride) 505 mls @ 75 mls/hr IVPB ASDIR [facility] Last Admin: 01/19/17 20:05 Dose: Not Given Amino Acids (Clinimix -) 1,000 mls @ 55 mls/hr IV Q18H [facility] Last Admin: 01/20/17 08:41 Dose: 55 mls/hr Potassium Phosphate 30 mm/ (Dextrose) 510 mls @ 63.75 mls/hr IVPB ONCE ONE PRN Reason: 30 MM/8 HR Stop: 01/20/17 22:29 Last Admin: 01/20/17 15:49 Dose: 63.75 mls/hr Lorazepam (Ativan Injection -) 0.5 mg IVPUSH Q6H PRN PRN Reason: ANXIETY Last Admin: 01/19/17 04:35 Dose: 0.5 mg Morphine Sulfate (Morphine Injection -) 1 mg IVPUSH Q3H PRN PRN Reason: PAIN Last Admin: 01/20/17 03:53 Dose: 1 mg Potassium Phos/Sodium Phos (Phos-Nak Packet -) 1 packet PO TID [facility] Last Admin: 01/20/17 15:46 Dose: 1 packet - Objective Vital Signs: Vital Signs Temperature 98.2 F 01/20/17 13:31 Pulse Rate 101 H 01/20/17 13:31 Respiratory Rate 18 01/20/17 13:31 Blood Pressure 121/69 01/20/17 13:31 O2 Sat by Pulse Oximetry (%) 95 01/20/17 09:00 Constitutional: Yes: Calm Eyes: Yes: Conjunctiva Clear Cardiovascular: Yes: S1, S2 Respiratory: Yes: CTA Bilaterally Gastrointestinal: Yes: Soft Genitourinary: Yes: Incontinence Musculoskeletal: Yes: Muscle Weakness Edema: No Neurological: Yes: Oriented Labs: CBC, BMP 01/19/17 14:45 01/20/17 06:00 INR, PTT INR 1.04 (0.82-1.09) 01/12/17 14:30 Problem List - Problems (1) Acute renal failure Code(s): N17.9 - ACUTE KIDNEY FAILURE, UNSPECIFIED Qualifiers: Acute renal failure type: unspecified Qualified Code(s): N17.9 - Acute kidney failure, unspecified (2) Hypercalcemia Code(s): E83.52 - HYPERCALCEMIA (3) Multiple myeloma Code(s): C90.00 - MULTIPLE MYELOMA NOT HAVING ACHIEVED REMISSION Qualifiers: Multiple myeloma remission status: not in remission Qualified Code(s ): C90.00 - Multiple myeloma not having achieved remission Assessment/Plan Current Medications Generic Name Dose Route Start Last Admin Trade Name Freq PRN Reason Stop Dose Admin Acetaminophen 650 mg 01/14/17 20:09 01/15/17 17:15 Tylenol - PO 650 mg Q6H PRN Administration FEVER OR PAIN Heparin Sodium (Porcine) 5,000 unit 01/17/17 06:00 01/20/17 15:46 Heparin - SQ 5,000 unit TID [facility] Administration Acyclovir 125 mg/ Dextrose 102.5 mls @ 100 mls/hr 01/16/17 18:15 01/20/17 05:46 IVPB Not Given Q12H [facility] Pantoprazole Sodium 40 mg/ 100 mls @ 200 mls/hr 01/17/17 10:00 01/20/17 10:25 Sodium Chloride IVPB 200 mls/hr DAILY [facility] Administration Potassium Chloride 10 meq/ 505 mls @ 75 mls/hr 01/17/17 20:00 01/19/17 20:05 Dextrose/Sodium Chloride IVPB Not Given ASDIR [facility] Amino Acids 1,000 mls @ 55 mls/hr 01/19/17 14:38 01/20/17 08:41 Clinimix - IV 55 mls/hr Q18H [facility] Administration Potassium Phosphate 30 mm/ 510 mls @ 63.75 mls/hr 01/20/17 14:30 01/20/17 15:49 Dextrose IVPB 01/20/17 22:29 63.75 mls/hr ONCE ONE Administration 30 MM/8 HR Lorazepam 0.5 mg 01/17/17 12:28 01/19/17 04:35 Ativan Injection - IVPUSH 0.5 mg Q6H PRN Administration ANXIETY Morphine Sulfate 1 mg 01/17/17 21:54 01/20/17 03:53 Morphine Injection - IVPUSH 1 mg Q3H PRN Administration PAIN Potassium Phos/Sodium Phos 1 packet 01/20/17 14:00 01/20/17 15:46 Phos-Nak Packet - PO 1 packet TID TOM[facility] Administration Impression 1. Hypercalcemia improving 2. SHANIA 3. anemia 4. hypokalemia 5. multiple myeloma 6. malnutrition 7. failure to thrive Plan - replace phos - pt is starting to tolerate diet - decrease clinimix - repeat labs in am - will give a dose of calcium - discussed with family - discussed with attending Dr Soto
[2017-01-20] MEDS ORDERED: CALCIUM 500MG/VIT-D 200 UNITS COMBO TABLET (FP) PO ONE ×2 (19:15→21:45)
[2017-01-20] MEDS: ACETAMINOPHEN 325 MG TABLET (FP) PO PRN (21:05)
[2017-01-20] MEDS: POTASSIUM CHLORIDE 10 MEQ in DEXTROSE 5%-1/3 NS - 500 ML IVPB SCH (22:43)
[2017-01-20] MEDS: LORazepam 2 MG/ML SDV VIAL IVPUSH PRN (22:44)
[2017-01-21] MEDS: AMINO ACIDS 4.25%/D5W 1,000 ML IV SCH ×2 (03:10→13:41)
[2017-01-21] MEDS: DEXTROSE 5% IVPB SCH (06:12)
[2017-01-21] MEDS: NAPH,MB-DB/K PH,MBDB POWDER PACKET PO SCH ×3 (06:12→22:07)
[2017-01-21] MEDS: WATER IVPB SCH (06:12)
[2017-01-21] MEDS: ACYCLOVIR IVPB SCH (06:12)
[2017-01-21] MEDS: HEPARIN NA (PORCINE) 5,000 UNITS/ML 1ML VIAL SQ SCH ×3 (06:12→22:01)
[2017-01-21 07:51] LABS: MCH 31.1 pg (25.7-33.7); MCHC 33.6 g/dl (32.0-36.0); MEAN CELL VOLUME 92.6 fl (80-96); MEAN PLT VOLUME 8.5 fl (7.5-11.1); PLATELET COUNT 88 K/MM3 (134-434); RDW 17.3 % (11.6-15.6); WHITE BLOOD COUNT 6.1 K/mm3 (4.0-10.0)
[2017-01-21 08:05] LABS: ANION GAP 10 (8-16); CO2 21 mmol/L (21-32); CREATININE 0.7 mg/dL (0.55-1.02); GLUCOSE,RANDOM 92 mg/dL (74-106); MAGNESIUM 1.5 mg/dL (1.8-2.4)
[2017-01-21] MEDS ORDERED: PANTOPRAZOLE SODIUM 40 MG VIAL ONE (08:45)
[2017-01-21] MEDS ORDERED: SODIUM CHLORIDE 100 ML IVPB ONE (08:45)
[2017-01-21] MEDS: PANTOPRAZOLE SODIUM 40 MG in SODIUM CHLORIDE 100 ML IVPB SCH (09:13)
--- NOTE | 2017-01-21 09:22 | PN ---
Physical Exam: SUBJECTIVE: Patient seen and examined OBJECTIVE: Vital Signs Period Temp Pulse Resp BP Sys/Saucedo Pulse Ox Last 24 Hr 98.2 F-105 F 99-106 18-20 109-121/65-77 95-96 GENERAL: The patient is awake, alert, and fully oriented, in no acute distress. HEAD: Normal with no signs of trauma. EYES: PERRL, extraocular movements intact, sclera anicteric, conjunctiva clear. No ptosis. ENT: Ears normal, nares patent, oropharynx clear without exudates, moist mucous membranes. NECK: Trachea midline, full range of motion, supple. LUNGS: Breath sounds equal, clear to auscultation bilaterally, no wheezes, no crackles, no accessory muscle use. HEART: Regular rate and rhythm, S1, S2 without murmur, rub or gallop. ABDOMEN: Soft, nontender, nondistended, normoactive bowel sounds, no guarding, no rebound, no hepatosplenomegaly, no masses. EXTREMITIES: 2+ pulses, warm, well-perfused, no edema. NEUROLOGICAL: Cranial nerves II through XII grossly intact. Normal speech, gait not observed. PSYCH: Normal mood, normal affect. SKIN: Warm, dry, normal turgor, no rashes or lesions noted Laboratory Results - last 24 hr 01/20/17 01/20/17 01/21/17 06:00 12:30 06:00 WBC 6.1 RBC 2.96 L Hgb 9.2 L Hct 27.4 L MCV 92.6 MCH 31.1 MCHC 33.6 RDW 17.3 H Plt Count 88 L MPV 8.5 Sodium 141 Potassium 3.4 L Chloride 110 H Carbon Dioxide 20 L Anion Gap 11 BUN 27 H Creatinine 0.7 Random Glucose 133 H D Calcium 6.2 L* Phosphorus 0.9 L* Magnesium 1.8 01/21/17 06:00 WBC RBC Hgb Hct MCV MCH MCHC RDW Plt Count MPV Sodium 144 Potassium 3.2 L Chloride 113 H Carbon Dioxide 21 Anion Gap 10 BUN 24 H Creatinine 0.7 Random Glucose 92 D Calcium Phosphorus 2.0 L D Magnesium 1.5 L Active Medications Generic Name Dose Route Start Last Admin Trade Name Freq PRN Reason Stop Dose Admin Acetaminophen 650 mg 01/14/17 20:09 01/20/17 21:05 Tylenol - PO 650 mg Q6H PRN Administration FEVER OR PAIN Heparin Sodium (Porcine) 5,000 unit 01/17/17 06:00 01/21/17 06:12 Heparin - SQ 5,000 unit TID [facility]OM[facility] Administration Acyclovir 125 mg/ Dextrose 102.5 mls @ 100 mls/hr 01/16/17 18:15 01/21/17 06:12 IVPB 100 mls/hr Q12H [facility] Administration Pantoprazole Sodium 40 mg/ 100 mls @ 200 mls/hr 01/17/17 10:00 01/20/17 10:25 Sodium Chloride IVPB 200 mls/hr DAILY [facility] Administration Potassium Chloride 10 meq/ 505 mls @ 75 mls/hr 01/17/17 20:00 01/20/17 22:43 Dextrose/Sodium Chloride IVPB 75 mls/hr ASDIR [facility] Administration Amino Acids 1,000 mls @ 55 mls/hr 01/19/17 14:38 01/21/17 03:10 Clinimix - IV 55 mls/hr Q18H [facility] Administration Lorazepam 0.5 mg 01/17/17 12:28 01/20/17 22:44 Ativan Injection - IVPUSH 0.5 mg Q6H PRN Administration ANXIETY Morphine Sulfate 1 mg 01/17/17 21:54 01/20/17 03:53 Morphine Injection - IVPUSH 1 mg Q3H PRN Administration PAIN Potassium Phos/Sodium Phos 1 packet 01/20/17 14:00 01/21/17 06:12 Phos-Nak Packet - PO 1 packet TID TOM[facility]S Administration Assessment/Plan (1) Multiple myeloma Assessment/Plan: -oncology following Code(s): C90.00 - MULTIPLE MYELOMA NOT HAVING ACHIEVED REMISSION Qualifiers: Multiple myeloma remission status: not in remission Qualified Code(s ): C90.00 - Multiple myeloma not having achieved remission (2) Acute renal failure Assessment/Plan: -resolved Code(s): N17.9 - ACUTE KIDNEY FAILURE, UNSPECIFIED Qualifiers: Acute renal failure type: unspecified Qualified Code(s): N17.9 - Acute kidney failure, unspecified (3) Hypercalcemia Assessment/Plan: -received zometa and calcitonin -nephrology following Code(s): E83.52 - HYPERCALCEMIA (4) Metabolic encephalopathy -much improved today -continue supportive care (5) Anemia -transfused with good response (6) FEN -phos improved but will continue to replete - IVF with K supplement -replete mag and phos per nephrology Problem List - Problems (1) Acute renal failure Code(s): N17.9 - ACUTE KIDNEY FAILURE, UNSPECIFIED Qualifiers: Acute renal failure type: unspecified Qualified Code(s): N17.9 - Acute kidney failure, unspecified (2) Hypercalcemia Code(s): E83.52 - HYPERCALCEMIA (3) Multiple myeloma Code(s): C90.00 - MULTIPLE MYELOMA NOT HAVING ACHIEVED REMISSION Qualifiers: Multiple myeloma remission status: not in remission Qualified Code(s ): C90.00 - Multiple myeloma not having achieved remission (4) Diverticulitis Code(s): K57.92 - DVTRCLI OF INTEST, PART UNSP, W/O PERF OR ABSCESS W/O BLEED (5) Low back strain Code(s): S39.012A - STRAIN OF MUSCLE, FASCIA AND TENDON OF LOWER BACK, INIT Qualifiers: Encounter type: initial encounter Qualified Code(s): S39.012A - Strain of muscle, fascia and tendon of lower back, initial encounter Visit type - Emergency Visit Emergency Visit: No - New Patient This patient is new to me today: No - Critical Care Critical Care patient: No - Discharge Referral Referred to [facility] Med P.C.: No
--- NOTE | 2017-01-21 12:37 | PN ---
Progress Note (short form) - Note Progress Note: - Note Progress Note: Patient seen and examined more alert, following commands eating lunch Vital Signs Period Temp Pulse Resp BP Sys/Saucedo Pulse Ox Last 24 Hr 98.2 F-105 F 99-106 18-20 109-121/69-77 95-96 sitting in with a lunch tray and eating well answers simple questions asks to elave information still mildly confused CBC, BMP 01/21/17 06:00 01/21/17 06:00 Active Medications Generic Name Dose Route Start Last Admin Trade Name Freq PRN Reason Stop Dose Admin Acetaminophen 650 mg 01/14/17 20:09 01/20/17 21:05 Tylenol - PO 650 mg Q6H PRN Administration FEVER OR PAIN Heparin Sodium (Porcine) 5,000 unit 01/17/17 06:00 01/21/17 06:12 Heparin - SQ 5,000 unit TID TOM[facility] Administration Acyclovir 125 mg/ Dextrose 102.5 mls @ 100 mls/hr 01/16/17 18:15 01/21/17 06:12 IVPB 100 mls/hr Q12H [facility] Administration Pantoprazole Sodium 40 mg/ 100 mls @ 200 mls/hr 01/17/17 10:00 01/21/17 09:13 Sodium Chloride IVPB 200 mls/hr DAILY [facility] Administration Potassium Chloride 10 meq/ 505 mls @ 75 mls/hr 01/17/17 20:00 01/20/17 22:43 Dextrose/Sodium Chloride IVPB 75 mls/hr ASDIR [facility]OM[facility] Administration Amino Acids 1,000 mls @ 55 mls/hr 01/19/17 14:38 01/21/17 03:10 Clinimix - IV 55 mls/hr Q18H [facility] Administration Lorazepam 0.5 mg 01/17/17 12:28 01/20/17 22:44 Ativan Injection - IVPUSH 0.5 mg Q6H PRN Administration ANXIETY Morphine Sulfate 1 mg 01/17/17 21:54 01/20/17 03:53 Morphine Injection - IVPUSH 1 mg Q3H PRN Administration PAIN Potassium Phos/Sodium Phos 1 packet 01/20/17 14:00 01/21/17 06:12 Phos-Nak Packet - PO 1 packet TID TOM[facility]S Administration A/P 81 y/o patient with Multiple Myeloma Hypercalcemia Altered Mental status SHANIA Bone pains s/p velcade /dex C1 D6---- will d/c vargas PT/OT change to valtrex prophylaxis overall improving daughters will let us decisions on CT scans
[2017-01-21] MEDS ORDERED: valACYclovir HCL 500 MG TABLET (FP) PO ONE (12:45)
[2017-01-21] MEDS: valACYclovir HCL 500 MG TABLET (FP) PO SCH (13:02)
--- NOTE | 2017-01-21 13:13 | PN ---
Progress Note, Physician History of Present Illness: Pt seen and examined at bedside. She is more awake and alert. She is able to eat , however in small amounts. - Current Medication List Current Medications: Active Medications Acetaminophen (Tylenol -) 650 mg PO Q6H PRN PRN Reason: FEVER OR PAIN Last Admin: 01/20/17 21:05 Dose: 650 mg Heparin Sodium (Porcine) (Heparin -) 5,000 unit SQ TID [facility] Last Admin: 01/21/17 13:02 Dose: 5,000 unit Potassium Chloride 10 meq/ (Dextrose/Sodium Chloride) 505 mls @ 75 mls/hr IVPB ASDIR [facility] Last Admin: 01/20/17 22:43 Dose: 75 mls/hr Amino Acids (Clinimix -) 1,000 mls @ 55 mls/hr IV Q18H [facility] Last Admin: 01/21/17 03:10 Dose: 55 mls/hr Lorazepam (Ativan Injection -) 0.5 mg IVPUSH Q6H PRN PRN Reason: ANXIETY Last Admin: 01/20/17 22:44 Dose: 0.5 mg Morphine Sulfate (Morphine Injection -) 1 mg IVPUSH Q3H PRN PRN Reason: PAIN Last Admin: 01/20/17 03:53 Dose: 1 mg Pantoprazole Sodium (Protonix -) 40 mg PO DAILY [facility] Potassium Phos/Sodium Phos (Phos-Nak Packet -) 1 packet PO TID [facility] Last Admin: 01/21/17 06:12 Dose: 1 packet Valacyclovir HCl (Valtrex -) 500 mg PO ONCE [facility] Stop: 01/27/17 23:59 Last Admin: 01/21/17 13:02 Dose: 500 mg - Objective Vital Signs: Vital Signs Temperature 98.4 F 01/21/17 08:32 Pulse Rate 99 H 01/21/17 08:32 Respiratory Rate 20 01/21/17 08:32 Blood Pressure 109/70 01/21/17 08:32 O2 Sat by Pulse Oximetry (%) 96 01/21/17 08:03 Constitutional: Yes: Calm Eyes: Yes: Conjunctiva Clear HENT: Yes: Atraumatic Cardiovascular: Yes: S1, S2 Respiratory: Yes: CTA Bilaterally Gastrointestinal: Yes: Soft Genitourinary: Yes: Incontinence Musculoskeletal: Yes: Muscle Weakness Edema: No Neurological: Yes: Oriented Labs: CBC, BMP 01/21/17 06:00 01/21/17 06:00 INR, PTT INR 1.04 (0.82-1.09) 01/12/17 14:30 Problem List - Problems (1) Acute renal failure Code(s): N17.9 - ACUTE KIDNEY FAILURE, UNSPECIFIED Qualifiers: Acute renal failure type: unspecified Qualified Code(s): N17.9 - Acute kidney failure, unspecified (2) Hypercalcemia Code(s): E83.52 - HYPERCALCEMIA (3) Multiple myeloma Code(s): C90.00 - MULTIPLE MYELOMA NOT HAVING ACHIEVED REMISSION Qualifiers: Multiple myeloma remission status: not in remission Qualified Code(s ): C90.00 - Multiple myeloma not having achieved remission Assessment/Plan Current Medications Generic Name Dose Route Start Last Admin Trade Name Freq PRN Reason Stop Dose Admin Acetaminophen 650 mg 01/14/17 20:09 01/20/17 21:05 Tylenol - PO 650 mg Q6H PRN Administration FEVER OR PAIN Heparin Sodium (Porcine) 5,000 unit 01/17/17 06:00 01/21/17 13:02 Heparin - SQ 5,000 unit TID [facility]OM[facility] Administration Potassium Chloride 10 meq/ 505 mls @ 75 mls/hr 01/17/17 20:00 01/20/17 22:43 Dextrose/Sodium Chloride IVPB 75 mls/hr ASDIR [facility] Administration Amino Acids 1,000 mls @ 55 mls/hr 01/19/17 14:38 01/21/17 03:10 Clinimix - IV 55 mls/hr Q18H [facility] Administration Lorazepam 0.5 mg 01/17/17 12:28 01/20/17 22:44 Ativan Injection - IVPUSH 0.5 mg Q6H PRN Administration ANXIETY Morphine Sulfate 1 mg 01/17/17 21:54 01/20/17 03:53 Morphine Injection - IVPUSH 1 mg Q3H PRN Administration PAIN Pantoprazole Sodium 40 mg 01/22/17 10:00 Protonix - PO DAILY [facility] Potassium Phos/Sodium Phos 1 packet 01/20/17 14:00 01/21/17 06:12 Phos-Nak Packet - PO 1 packet TID [facility] Administration Valacyclovir HCl 500 mg 01/21/17 12:45 01/21/17 13:02 Valtrex - PO 01/27/17 23:59 500 mg ONCE [facility] Administration Impression 1. Hypercalcemia improving 2. SHANIA 3. anemia 4. hypokalemia 5. multiple myeloma 6. malnutrition 7. failure to thrive Plan - can decrease rate of clinimix - supplement mag and phos - check cmp - supplements calcium - discussed with family - renal function stable Dr Soto
[2017-01-21] MEDS ORDERED: CALCIUM 500MG/VIT-D 200 UNITS COMBO TABLET (FP) PO ONE (13:30)
[2017-01-21] MEDS ORDERED: POTASSIUM CHLORIDE TABS 20 MEQ TABLET.ER (FP) PO ONE (13:30)
[2017-01-21] MEDS: MAGNESIUM SULF 50% (8.12 MEQ/2 ML-1 GM VIAL) IVPB ONE ×2 (13:36→13:37)
[2017-01-21] MEDS: ACETAMINOPHEN 325 MG TABLET (FP) PO PRN (22:03)
[2017-01-22] MEDS: HEPARIN NA (PORCINE) 5,000 UNITS/ML 1ML VIAL SQ SCH (06:31)
[2017-01-22] MEDS: NAPH,MB-DB/K PH,MBDB POWDER PACKET PO SCH ×3 (06:31→21:57)
[2017-01-22] MEDS: ACETAMINOPHEN 325 MG TABLET (FP) PO PRN ×3 (08:26→23:51)
[2017-01-22 08:47] LABS: ALBUMIN 2.4 g/dl (3.4-5.0); ANION GAP 9 (8-16); BILIRUBIN,TOTAL 0.3 mg/dL (0.2-1.0); CO2 19 mmol/L (21-32); CREATININE 0.7 mg/dL (0.55-1.02); GLUCOSE,RANDOM 73 mg/dL (74-106); SGOT/AST 29 U/L (15-37); SGPT/ALT 23 U/L (12-78); TOT PROT 5.7 g/dl (6.4-8.2)
[2017-01-22 08:48] LABS: ALK PHOS 85 U/L (45-117)
[2017-01-22 09:08] LABS: CALCIUM 6.1 mg/dL (8.5-10.1)
[2017-01-22] MEDS: PANTOPRAZOLE 40 MG TABLET (FP) PO SCH (10:33)
--- NOTE | 2017-01-22 12:04 | PN ---
Progress Note (short form) - Note Progress Note: - Note Progress Note: Patient seen and examined sleeping today I had a 30 minute conversation with her daughter today. She is concerned she saw bright red blood in her stools and this is because of the heparin. I acknowledged her concern and we will stop the prophylactic heparin for now. Her platelets have improved over the last 3 days. Vital Signs Period Temp Pulse Resp BP Sys/Saucedo Pulse Ox Last 24 Hr 97.6 F-98.5 F 86-102 18-20 108-126/70-76 96 sleeping but arousable and answers questions p/a- soft, non tender, no organomegaly RS- mild crackles no petechiae , no hematoma CBC, BMP 01/21/17 06:00 01/22/17 06:30 Active Medications Generic Name Dose Route Start Last Admin Trade Name Freq PRN Reason Stop Dose Admin Acetaminophen 650 mg 01/14/17 20:09 01/22/17 08:26 Tylenol - PO 650 mg Q6H PRN Administration FEVER OR PAIN Amino Acids 1,000 mls @ 35 mls/hr 01/21/17 14:30 01/21/17 13:41 Clinimix - IV 35 mls/hr Q24H [facility] Administration Lorazepam 0.5 mg 01/17/17 12:28 01/20/17 22:44 Ativan Injection - IVPUSH 0.5 mg Q6H PRN Administration ANXIETY Morphine Sulfate 1 mg 01/17/17 21:54 01/20/17 03:53 Morphine Injection - IVPUSH 1 mg Q3H PRN Administration PAIN Pantoprazole Sodium 40 mg 01/22/17 10:00 01/22/17 10:33 Protonix - PO Not Given DAILY [facility] Potassium Phos/Sodium Phos 1 packet 01/20/17 14:00 01/22/17 06:31 Phos-Nak Packet - PO 1 packet TID [facility] Administration Valacyclovir HCl 500 mg 01/21/17 12:45 01/21/17 13:02 Valtrex - PO 01/27/17 23:59 500 mg ONCE [facility] Administration A/P 81 y/o patient with Multiple Myeloma Hypercalcemia Altered Mental status SHANIA Bone pains s/p velcade /dex C1 D7---- Recheck CBC later today If Hb <7.5 then transfuse 1 unit of PRBC If platelets are less than 50 and bleeding will transfuse platelets The daughter is also concerned that taking too much blood will decrease her Hb Hence we will do only a CBC and Type and screen if she needs a transfusion later tomorrow we can do CBC, PT, PTT to ensure there is no coagulation disorders contributing.
[2017-01-22] MEDS: AMINO ACIDS 4.25%/D5W 1,000 ML IV SCH (14:42)
[2017-01-22] MEDS: CALCIUM (OYSTER SHELL) 500 MG TABLET (FP) PO SCH (14:48)
--- NOTE | 2017-01-22 14:49 | PN ---
Progress Note, Physician History of Present Illness: Pt seen and examined at bedside. She is more awake and alert. She is tolerating diet. Family are giving her protein shakes as well. - Current Medication List Current Medications: Active Medications Acetaminophen (Tylenol -) 650 mg PO Q6H PRN PRN Reason: FEVER OR PAIN Last Admin: 01/22/17 08:26 Dose: 650 mg Calcium Carbonate (Os-Ilan 500mg -) 500 mg PO DAILY [facility] Amino Acids (Clinimix -) 1,000 mls @ 35 mls/hr IV Q24H [facility] Last Admin: 01/21/17 13:41 Dose: 35 mls/hr Lorazepam (Ativan Injection -) 0.5 mg IVPUSH Q6H PRN PRN Reason: ANXIETY Last Admin: 01/20/17 22:44 Dose: 0.5 mg Morphine Sulfate (Morphine Injection -) 1 mg IVPUSH Q3H PRN PRN Reason: PAIN Last Admin: 01/20/17 03:53 Dose: 1 mg Pantoprazole Sodium (Protonix -) 40 mg PO DAILY [facility] Last Admin: 01/22/17 10:33 Dose: Not Given Potassium Phos/Sodium Phos (Phos-Nak Packet -) 1 packet PO TID [facility] Last Admin: 01/22/17 06:31 Dose: 1 packet - Objective Vital Signs: Vital Signs Temperature 97.7 F 01/22/17 09:00 Pulse Rate 86 01/22/17 09:00 Respiratory Rate 18 01/22/17 09:00 Blood Pressure 108/72 01/22/17 09:00 O2 Sat by Pulse Oximetry (%) 96 01/22/17 09:00 Constitutional: Yes: Calm Eyes: Yes: Conjunctiva Clear HENT: Yes: Atraumatic Neck: Yes: Supple Cardiovascular: Yes: S1, S2 Respiratory: Yes: CTA Bilaterally Genitourinary: Yes: Incontinence Musculoskeletal: Yes: Muscle Weakness Edema: No Neurological: Yes: Oriented Psychiatric: Yes: Oriented Labs: CBC, BMP 01/21/17 06:00 01/22/17 06:30 INR, PTT INR 1.04 (0.82-1.09) 01/12/17 14:30 Problem List - Problems (1) Acute renal failure Code(s): N17.9 - ACUTE KIDNEY FAILURE, UNSPECIFIED Qualifiers: Acute renal failure type: unspecified Qualified Code(s): N17.9 - Acute kidney failure, unspecified (2) Hypercalcemia Code(s): E83.52 - HYPERCALCEMIA (3) Multiple myeloma Code(s): C90.00 - MULTIPLE MYELOMA NOT HAVING ACHIEVED REMISSION Qualifiers: Multiple myeloma remission status: not in remission Qualified Code(s ): C90.00 - Multiple myeloma not having achieved remission Assessment/Plan Current Medications Generic Name Dose Route Start Last Admin Trade Name Freq PRN Reason Stop Dose Admin Acetaminophen 650 mg 01/14/17 20:09 01/22/17 08:26 Tylenol - PO 650 mg Q6H PRN Administration FEVER OR PAIN Calcium Carbonate 500 mg 01/22/17 14:15 Os-Ilan 500mg - PO DAILY [facility] Amino Acids 1,000 mls @ 35 mls/hr 01/21/17 14:30 01/21/17 13:41 Clinimix - IV 35 mls/hr Q24H [facility] Administration Lorazepam 0.5 mg 01/17/17 12:28 01/20/17 22:44 Ativan Injection - IVPUSH 0.5 mg Q6H PRN Administration ANXIETY Morphine Sulfate 1 mg 01/17/17 21:54 01/20/17 03:53 Morphine Injection - IVPUSH 1 mg Q3H PRN Administration PAIN Pantoprazole Sodium 40 mg 01/22/17 10:00 01/22/17 10:33 Protonix - PO Not Given DAILY [facility] Potassium Phos/Sodium Phos 1 packet 01/20/17 14:00 01/22/17 06:31 Phos-Nak Packet - PO 1 packet TID [facility] Administration Impression 1. Hypercalcemia improving 2. SHANIA 3. anemia 4. hypokalemia 5. multiple myeloma 6. malnutrition 7. failure to thrive Plan - can stop clinimix for not - encourage PO intake - will give dose of calcium - check phos and mag - discussed with family - renal function stable Dr Soto
[2017-01-22] MEDS ORDERED: POTASSIUM CHLORIDE TABS 20 MEQ TABLET.ER (FP) PO ONE (14:51)
[2017-01-22] MEDS ORDERED: CALCIUM 500MG/VIT-D 200 UNITS COMBO TABLET (FP) PO ONE (15:00)
[2017-01-22 17:23] LABS: MCH 31.4 pg (25.7-33.7); MEAN CELL VOLUME 92.6 fl (80-96); MEAN PLT VOLUME 9.2 fl (7.5-11.1); RDW 17.1 % (11.6-15.6); WHITE BLOOD COUNT 4.6 K/mm3 (4.0-10.0)
--- NOTE | 2017-01-22 17:24 | PN ---
Physical Exam: SUBJECTIVE: Patient seen and examined at the bedside. OBJECTIVE: Labs reviewed with family, repeat CBC/BMP today Calcium supplemented Continue to have critical calcium levels, will supplement Vital Signs Period Temp Pulse Resp BP Sys/Saucedo Pulse Ox Last 24 Hr 97.6 F-98.2 F 86-102 18-18 105-126/61-76 96-96 GENERAL: The patient is awake, alert, and fully oriented, in no acute distress. HEAD: Normal with no signs of trauma. EYES: PERRL, extraocular movements intact, sclera anicteric, conjunctiva clear. No ptosis. ENT: Ears normal, nares patent, oropharynx clear without exudates, moist mucous membranes. NECK: Trachea midline, full range of motion, supple. LUNGS: Breath sounds equal, clear to auscultation bilaterally, no wheezes, no crackles, no accessory muscle use. ABDOMEN: Soft, nontender, nondistended, hyperactive bowel sounds EXTREMITIES: 2+ pulses, warm, well-perfused, no edema. NEUROLOGICAL: Normal speech, gait not observed. PSYCH: Normal mood, normal affect. SKIN: Warm, dry, normal turgor, no rashes or lesions noted Laboratory Results - last 24 hr 01/22/17 06:30 Sodium 141 Potassium 3.5 Chloride 113 H Carbon Dioxide 19 L Anion Gap 9 BUN 31 H D Creatinine 0.7 Creat Clearance w eGFR > 60 Random Glucose 73 L D Calcium 6.1 L* Total Bilirubin 0.3 AST 29 D ALT 23 D Alkaline Phosphatase 85 D Total Protein 5.7 L Albumin 2.4 L Active Medications Generic Name Dose Route Start Last Admin Trade Name Freq PRN Reason Stop Dose Admin Acetaminophen 650 mg 01/14/17 20:09 01/22/17 08:26 Tylenol - PO 650 mg Q6H PRN Administration FEVER OR PAIN Calcium Carbonate 500 mg 01/22/17 14:15 01/22/17 14:48 Os-Ilan 500mg - PO 500 mg DAILY TOMÁS Administration Pantoprazole Sodium 40 mg 01/22/17 10:00 01/22/17 10:33 Protonix - PO Not Given DAILY TOMÁS Potassium Phos/Sodium Phos 1 packet 01/20/17 14:00 01/22/17 14:48 Phos-Nak Packet - PO 1 packet TID TOMÁS Administration ASSESSMENT/PLAN: Patient is an 81 year old female with a significant past medical history of Multiple Myeloma diagnosed 10/2016, s/p lumbar surgery for a pathologic compression fx to T12 in 10/2016 . She presented to the ED with AMS, hypercalcemia. Patient is a poor historian secondary to AMS and history is obtained from patient's daughter who is at the bedside. Oncology/Hematology Multiple Myeloma A/P: Oncology following Received Velcade during hospitalization In no acute distress, verbalizing intermittent back discomfort Will add morphine prn Anemia A/P: Monitor hmg/hct Hematology following Renal: Acute renal failure A/P: SHANIA, renal following Notes reviewed, renal function now stable Electrolyte Imbalance: Hypercalcemia on admission now with hypocalcemia A/P: Hypercalcemia likely secondarty to multiple myeloma Was given Zometa and Calcitonin previously, calcium has now become critically low Started on daily calcium supplements, but needs close monitoring Monitor BMP daily, Nephrology following Neuro: Metabolic encephalopathy A/P: mental status improving Lethargic but answering questions appropriately, defers to daughter Monitor closely F.E.N. Fluids: Climimax stopped by renal, monitor intake and output Electrolytes: repeat BMP and replete Nutrition: poor PO intake, RD following Prophylaxis: DVT: SCDs, Heparin stopped today by heme secondary to reports of bloody stools GI: Protonix daily Disposition: DNR. Requires inpatient hospitalization. Visit type - Emergency Visit Emergency Visit: Yes ED Registration Date: 01/12/17 Care time: The patient presented to the Emergency Department on the above date and was hospitalized for further evaluation of their emergent condition. - New Patient This patient is new to me today: Yes Date on this admission: 01/22/17 - Critical Care Critical Care patient: No - Discharge Referral Referred to [facility] Med P.C.: No
[2017-01-22] MEDS ORDERED: morphine CARPU-JECT 2 MG/1 ML DISP.SYRIN IVPB PRN (17:43)
[2017-01-22 18:01] LABS: PLATELET COUNT 94 K/MM3 (134-434)
[2017-01-22 18:13] LABS: ALBUMIN 2.4 g/dl (3.4-5.0); ALK PHOS 80 U/L (45-117); ANION GAP 7 (8-16); BILIRUBIN,TOTAL 0.3 mg/dL (0.2-1.0); CO2 20 mmol/L (21-32); CREATININE 0.6 mg/dL (0.55-1.02); GLUCOSE,RANDOM 67 mg/dL (74-106); MAGNESIUM 1.6 mg/dL (1.8-2.4); SGOT/AST 31 U/L (15-37); SGPT/ALT 24 U/L (12-78); TOT PROT 5.9 g/dl (6.4-8.2)
[2017-01-22] MEDS ORDERED: MAGNESIUM SULF 50% (8.12 MEQ/2 ML-1 GM VIAL) IVPB ONE ×2 (18:19→21:30)
[2017-01-23] MEDS: ACETAMINOPHEN 325 MG TABLET (FP) PO PRN ×3 (01:22→23:39)
[2017-01-23] MEDS: NAPH,MB-DB/K PH,MBDB POWDER PACKET PO SCH ×2 (06:37→15:32)
[2017-01-23] MEDS: valACYclovir HCL 500 MG TABLET (FP) PO SCH (07:14)
[2017-01-23 07:31] LABS: BASOPHIL 0.2 % (0-2.0); EOSINOPHIL 0.2 % (0-4.5); MCH 31.3 pg (25.7-33.7); MCHC 33.7 g/dl (32.0-36.0); MEAN CELL VOLUME 92.9 fl (80-96); MEAN PLT VOLUME 9.3 fl (7.5-11.1); NEUTROPHILS 75.4 % (42.8-82.8); PLATELET COUNT 101 K/MM3 (134-434); RDW 17.5 % (11.6-15.6); WHITE BLOOD COUNT 4.8 K/mm3 (4.0-10.0)
[2017-01-23 07:56] LABS: ALBUMIN 2.5 g/dl (3.4-5.0); ANION GAP 8 (8-16); CO2 21 mmol/L (21-32); CREATININE 0.6 mg/dL (0.55-1.02); GLUCOSE,RANDOM 70 mg/dL (74-106); MAGNESIUM 1.8 mg/dL (1.8-2.4); SGOT/AST 38 U/L (15-37); SGPT/ALT 30 U/L (12-78)
[2017-01-23 07:58] LABS: ALK PHOS 85 U/L (45-117); BILIRUBIN,TOTAL 0.5 mg/dL (0.2-1.0); PHOSPHOROUS 1.3 mg/dL (2.5-4.9); TOT PROT 5.7 g/dl (6.4-8.2)
[2017-01-23 09:43] LABS: CALCIUM 5.8 mg/dL (8.5-10.1)
[2017-01-23] MEDS: CALCIUM (OYSTER SHELL) 500 MG TABLET (FP) PO SCH (11:31)
[2017-01-23] MEDS: PANTOPRAZOLE 40 MG TABLET (FP) PO SCH ×2 (11:31→11:47)
--- NOTE | 2017-01-23 13:04 | PN ---
Progress Note, Physician Chief Complaint: Patient says she thinks she feels fine, complains of having pain in her back. No cp, sob, n/v. - Current Medication List Current Medications: Active Medications Acetaminophen (Tylenol -) 650 mg PO Q6H PRN PRN Reason: FEVER OR PAIN Last Admin: 01/23/17 01:22 Dose: 650 mg Calcium Carbonate (Os-Ilan 500mg -) 500 mg PO DAILY [facility] Last Admin: 01/23/17 11:31 Dose: 500 mg Calcium Gluconate (Calcium Gluconate 10% -) 1,000 mg IVPB ONCE ONE Stop: 01/23/17 13:03 Potassium Phosphate 16 mm/ (Dextrose) 255.3333 mls @ 62.5 mls/hr IVPB ONCE ONE Stop: 01/23/17 17:07 Morphine Sulfate (Morphine Injection -) 1 mg IVPB Q6H PRN PRN Reason: PAIN Pantoprazole Sodium (Protonix -) 40 mg PO DAILY [facility] Last Admin: 01/23/17 11:47 Dose: Not Given Potassium Phos/Sodium Phos (Phos-Nak Packet -) 1 packet PO TID [facility] Last Admin: 01/23/17 06:37 Dose: 1 packet - Objective Vital Signs: Vital Signs Temperature 36.9 C 01/22/17 22:00 Pulse Rate 102 H 01/23/17 10:15 Respiratory Rate 18 01/22/17 22:00 Blood Pressure 98/60 01/22/17 22:00 O2 Sat by Pulse Oximetry (%) 96 01/23/17 10:15 Constitutional: Yes: Well Nourished, No Distress, Calm Cardiovascular: Yes: Regular Rate and Rhythm. No: Gallop, Murmur, Rub Respiratory: Yes: Regular, CTA Bilaterally. No: Rales, Rhonchi, Wheezes Gastrointestinal: Yes: Normal Bowel Sounds, Soft. No: Distention, Tenderness Extremities: Yes: WNL Edema: No Labs: CBC, BMP 01/23/17 06:30 01/23/17 06:30 INR, PTT INR 1.04 (0.82-1.09) 01/12/17 14:30 Problem List - Problems (1) Multiple myeloma Code(s): C90.00 - MULTIPLE MYELOMA NOT HAVING ACHIEVED REMISSION Qualifiers: Multiple myeloma remission status: not in remission Qualified Code(s ): C90.00 - Multiple myeloma not having achieved remission (2) Acute renal failure Code(s): N17.9 - ACUTE KIDNEY FAILURE, UNSPECIFIED Qualifiers: Acute renal failure type: unspecified Qualified Code(s): N17.9 - Acute kidney failure, unspecified (3) Hypercalcemia Code(s): E83.52 - HYPERCALCEMIA (4) Metabolic encephalopathy Code(s): G93.41 - METABOLIC ENCEPHALOPATHY Assessment/Plan (1) Multiple myeloma Assessment/Plan: -received velcade and dexamethasone -oncology following -family now agreeing to MRI to evaluate for cord compression -will order Code(s): C90.00 - MULTIPLE MYELOMA NOT HAVING ACHIEVED REMISSION Qualifiers: Multiple myeloma remission status: not in remission Qualified Code(s ): C90.00 - Multiple myeloma not having achieved remission (2) Acute renal failure Assessment/Plan: -resolved Code(s): N17.9 - ACUTE KIDNEY FAILURE, UNSPECIFIED Qualifiers: Acute renal failure type: unspecified Qualified Code(s): N17.9 - Acute kidney failure, unspecified (3) Hypercalcemia Assessment/Plan: -received zometa and calcitonin -resolved -nephrology following -now hypocalcemic, will order 1gm of calcium gluconate Code(s): E83.52 - HYPERCALCEMIA (4) Metabolic encephalopathy -much improved -continue supportive care (5) Anemia -transfused with good response (6) FEN -replace phosphorus both IV and po
[2017-01-23] MEDS ORDERED: CALCIUM GLUCONATE 10% - 1,000 MG/10 ML VIAL IVPB ONE (13:25)
[2017-01-23] MEDS ORDERED: POTASSIUM PHOSPHATE 16 MM in DEXTROSE 5%-WATER - 250 ML IVPB ONE (15:00)
--- NOTE | 2017-01-23 15:09 | PN ---
Progress Note, Physician History of Present Illness: Pt seen and examined at bedside. She is more awake today. She is having diarrhea. - Current Medication List Current Medications: Active Medications Acetaminophen (Tylenol -) 650 mg PO Q6H PRN PRN Reason: FEVER OR PAIN Last Admin: 01/23/17 01:22 Dose: 650 mg Calcium Carbonate (Os-Ilan 500mg -) 500 mg PO DAILY [facility] Last Admin: 01/23/17 11:31 Dose: 500 mg Potassium Phosphate 16 mm/ (Dextrose) 255.3333 mls @ 42.556 mls/hr IVPB ONCE ONE Stop: 01/23/17 20:59 Morphine Sulfate (Morphine Injection -) 1 mg IVPB Q6H PRN PRN Reason: PAIN Pantoprazole Sodium (Protonix -) 40 mg PO DAILY [facility] Last Admin: 01/23/17 11:47 Dose: Not Given Potassium Phos/Sodium Phos (Phos-Nak Packet -) 1 packet PO TID [facility] Last Admin: 01/23/17 06:37 Dose: 1 packet - Objective Vital Signs: Vital Signs Temperature 98.2 F 01/23/17 10:00 Pulse Rate 102 H 01/23/17 10:15 Respiratory Rate 18 01/23/17 10:00 Blood Pressure 101/63 01/23/17 10:00 O2 Sat by Pulse Oximetry (%) 96 01/23/17 10:15 Constitutional: Yes: Calm Eyes: Yes: Conjunctiva Clear Cardiovascular: Yes: S1, S2 Respiratory: Yes: CTA Bilaterally Gastrointestinal: Yes: Soft Genitourinary: Yes: Incontinence Edema: No Neurological: Yes: Oriented Labs: CBC, BMP 01/23/17 06:30 01/23/17 06:30 INR, PTT INR 1.04 (0.82-1.09) 01/12/17 14:30 Problem List - Problems (1) Acute renal failure Code(s): N17.9 - ACUTE KIDNEY FAILURE, UNSPECIFIED Qualifiers: Acute renal failure type: unspecified Qualified Code(s): N17.9 - Acute kidney failure, unspecified (2) Hypercalcemia Code(s): E83.52 - HYPERCALCEMIA (3) Multiple myeloma Code(s): C90.00 - MULTIPLE MYELOMA NOT HAVING ACHIEVED REMISSION Qualifiers: Multiple myeloma remission status: not in remission Qualified Code(s ): C90.00 - Multiple myeloma not having achieved remission Assessment/Plan Current Medications Generic Name Dose Route Start Last Admin Trade Name Felisha PRN Reason Stop Dose Admin Acetaminophen 650 mg 01/14/17 20:09 01/23/17 01:22 Tylenol - PO 650 mg Q6H PRN Administration FEVER OR PAIN Calcium Carbonate 500 mg 01/22/17 14:15 01/23/17 11:31 Os-Ilan 500mg - PO 500 mg DAILY TOMÁS Administration Potassium Phosphate 16 mm/ 255.3333 mls @ 42.556 mls/hr 01/23/17 15:00 Dextrose IVPB 01/23/17 20:59 ONCE ONE Morphine Sulfate 1 mg 01/22/17 17:43 Morphine Injection - IVPB Q6H PRN PAIN Pantoprazole Sodium 40 mg 01/22/17 10:00 01/23/17 11:47 Protonix - PO Not Given DAILY TOMÁS Potassium Phos/Sodium Phos 1 packet 01/20/17 14:00 01/23/17 06:37 Phos-Nak Packet - PO 1 packet TID TOMÁS Administration Impression 1. Hypercalcemia improving 2. SHANIA 3. anemia 4. hypokalemia 5. multiple myeloma 6. malnutrition 7. failure to thrive Plan - replace lytes - encourage PO intake - follow stool studies - will hold neutra-phos - discussed with family - renal function stable - agree with replacing calcium Dr Soto
--- NOTE | 2017-01-23 16:13 | PN ---
Progress Note (short form) - Note Progress Note: Patient seen and examined more alert, following commands answering questions has some diarrhea no cramping Last Vital Signs Temp Pulse Resp BP Pulse Ox 99.0 F 107 H 18 90/51 96 01/23/17 15:07 01/23/17 15:07 01/23/17 15:07 01/23/17 15:07 01/23/17 10:15 Cor: RSR, No murmurs, No gallops Lungs: decreased at bases Abd: Soft, Normal bowel sounds, No organomegaly Ext:No significant edema Abnormal Lab Results 01/22/17 01/22/17 01/23/17 17:00 17:00 06:30 RBC 2.84 L Hgb 8.9 L Hct 26.3 L RDW 17.1 H Plt Count 94 L Monocytes % Chloride 114 H 112 H Carbon Dioxide 20 L Anion Gap 7 L BUN 28 H 23 H Random Glucose 67 L 70 L Calcium 6.0 L* 5.8 L* Phosphorus 1.3 L D Magnesium 1.6 L AST 38 H D Total Protein 5.9 L 5.7 L Albumin 2.4 L 2.5 L 01/23/17 06:30 RBC 2.85 L Hgb 8.9 L Hct 26.5 L RDW 17.5 H Plt Count 101 L Monocytes % 12.9 H Chloride Carbon Dioxide Anion Gap BUN Random Glucose Calcium Phosphorus Magnesium AST Total Protein Albumin Home Medication List Medication Instructions Recorded Confirmed Type NK [No Known Home Medication] 01/12/17 01/12/17 History Active Medications Generic Name Dose Route Start Last Admin Trade Name Freq PRN Reason Stop Dose Admin Acetaminophen 650 mg 01/14/17 20:09 01/23/17 15:55 Tylenol - PO 650 mg Q6H PRN Administration FEVER OR PAIN Calcium Carbonate 500 mg 01/22/17 14:15 01/23/17 11:31 Os-Ilan 500mg - PO 500 mg DAILY TOMÁS Administration Potassium Phosphate 16 mm/ 255.3333 mls @ 42.556 mls/hr 01/23/17 15:00 15:56 Dextrose IVPB 01/23/17 20:59 42.556 mls/hr ONCE ONE Administration Morphine Sulfate 1 mg 01/22/17 17:43 Morphine Injection - IVPB Q6H PRN PAIN Pantoprazole Sodium 40 mg 01/22/17 10:00 08/28/17 11:47 Protonix - PO Not Given DAILY TOMÁS A/P 81 y/o patient with Multiple Myeloma Hypercalcemia Altered Mental status SHANIA Bone pains s/p velcade /dex C1 D8---- redose velcade today discussed with daughters in great detail on 01/19---possiblity of bonemets/cord compression. Rediscussed goals of care/? extent of intervention. They undersatnd that cord compression is an emergency and chances of recovery from paralysis are lesser if there is delay in diagnosis and therapy. They delayed decision making but today they are ok with getting MRI also c/o rt. hip pain--may need CT non contrast of pelvis gentle hydration diarrhea --due to neutra phos? will gently hydrate check stool for c.diff
[2017-01-23] MEDS: SODIUM CHLORIDE 1,000 ML IV SCH (17:49)
[2017-01-23] MEDS ORDERED: BORTEZOMIB (VELCADE) 2.5 MG/ML SUB-Q INJECTION SQ ONE (19:00)
[2017-01-23] MEDS ORDERED: PT OWN MED DRAWER 7, Y5N ONE (21:53)
[2017-01-24] MEDS: ACETAMINOPHEN 325 MG TABLET (FP) PO PRN (07:02)
[2017-01-24] MEDS: SODIUM CHLORIDE 1,000 ML IV SCH ×2 (07:05→17:59)
[2017-01-24 08:24] LABS: ANION GAP 9 (8-16); CO2 20 mmol/L (21-32); CREATININE 0.6 mg/dL (0.55-1.02); GLUCOSE,RANDOM 65 mg/dL (74-106); MAGNESIUM 1.7 mg/dL (1.8-2.4); PHOSPHOROUS 1.4 mg/dL (2.5-4.9)
[2017-01-24 09:05] LABS: CALCIUM 6.5 mg/dL (8.5-10.1)
[2017-01-24] MEDS: PANTOPRAZOLE 40 MG TABLET (FP) PO SCH (10:31)
[2017-01-24] MEDS: CALCIUM (OYSTER SHELL) 500 MG TABLET (FP) PO SCH (10:31)
[2017-01-24] MEDS ORDERED: oxyCODONE HCL 5 MG TABLET PO PRN (10:55)
--- NOTE | 2017-01-24 12:46 | PN ---
Progress Note, Physician Chief Complaint: Patient says she is doing better, able to walk with PT. Having diarrhea. No cp or sob. Encouraged to increase oral intake. - Current Medication List Current Medications: Active Medications Acetaminophen (Tylenol -) 1,000 mg PO Q6H PRN PRN Reason: FEVER OR PAIN Calcium Carbonate (Os-Ilan 500mg -) 500 mg PO DAILY [facility] Last Admin: 01/24/17 10:31 Dose: 500 mg Sodium Chloride (Normal Saline -) 1,000 mls @ 42 mls/hr IV ASDIR [facility] Last Admin: 01/24/17 07:05 Dose: 42 mls/hr Morphine Sulfate (Morphine Injection -) 1 mg IVPB Q6H PRN PRN Reason: PAIN Oxycodone HCl (Roxicodone -) 5 mg PO Q4H PRN PRN Reason: PAIN Pantoprazole Sodium (Protonix -) 40 mg PO DAILY [facility] Last Admin: 01/24/17 10:31 Dose: Not Given - Objective Vital Signs: Vital Signs Temperature 36.8 C 01/24/17 06:00 Pulse Rate 90 01/24/17 07:09 Respiratory Rate 18 01/24/17 07:09 Blood Pressure 89/55 01/24/17 07:09 O2 Sat by Pulse Oximetry (%) 96 01/23/17 21:00 Constitutional: Yes: No Distress, Calm, Thin Cardiovascular: Yes: Regular Rate and Rhythm. No: Gallop, Murmur, Rub Respiratory: Yes: Regular, CTA Bilaterally. No: Rales, Rhonchi, Wheezes Gastrointestinal: Yes: Normal Bowel Sounds, Soft. No: Distention, Tenderness Extremities: Yes: WNL Edema: No Labs: CBC, BMP 01/23/17 06:30 01/24/17 06:00 INR, PTT INR 1.04 (0.82-1.09) 01/12/17 14:30 Problem List - Problems (1) Multiple myeloma Code(s): C90.00 - MULTIPLE MYELOMA NOT HAVING ACHIEVED REMISSION Qualifiers: Multiple myeloma remission status: not in remission Qualified Code(s ): C90.00 - Multiple myeloma not having achieved remission (2) Acute renal failure Code(s): N17.9 - ACUTE KIDNEY FAILURE, UNSPECIFIED Qualifiers: Acute renal failure type: unspecified Qualified Code(s): N17.9 - Acute kidney failure, unspecified (3) Hypercalcemia Code(s): E83.52 - HYPERCALCEMIA (4) Metabolic encephalopathy Code(s): G93.41 - METABOLIC ENCEPHALOPATHY (5) Hypocalcemia Code(s): E83.51 - HYPOCALCEMIA (6) Hypomagnesemia Code(s): E83.42 - HYPOMAGNESEMIA (7) Hypophosphatemia Code(s): E83.39 - OTHER DISORDERS OF PHOSPHORUS METABOLISM Assessment/Plan (1) Multiple myeloma Assessment/Plan: -received velcade yesterday -MRI thoracic and lumbar spine reviewed, no cord compression -oncology following Code(s): C90.00 - MULTIPLE MYELOMA NOT HAVING ACHIEVED REMISSION Qualifiers: Multiple myeloma remission status: not in remission Qualified Code(s ): C90.00 - Multiple myeloma not having achieved remission (2) Acute renal failure Assessment/Plan: -resolved Code(s): N17.9 - ACUTE KIDNEY FAILURE, UNSPECIFIED Qualifiers: Acute renal failure type: unspecified Qualified Code(s): N17.9 - Acute kidney failure, unspecified (3) Hypocalcemia Assessment/Plan: -received calcium gluconate yesterday with good response -monitor Code(s): E83.52 - HYPERCALCEMIA (4) Metabolic encephalopathy -much improved -continue supportive care (5) Anemia -transfused with good response (6) FEN -replace phosphorus both IV and po -replace magnesium (7) Diarrhea -follow up stool studies -hold on immodium
--- NOTE | 2017-01-24 12:46 | PN ---
Progress Note, Physician History of Present Illness: Pt seen and examined at bedside. She participated with rehab and was able to walk a few steps. - Current Medication List Current Medications: Active Medications Acetaminophen (Tylenol -) 1,000 mg PO Q6H PRN PRN Reason: FEVER OR PAIN Calcium Carbonate (Os-Ilan 500mg -) 500 mg PO DAILY [facility] Last Admin: 01/24/17 10:31 Dose: 500 mg Sodium Chloride (Normal Saline -) 1,000 mls @ 42 mls/hr IV ASDIR [facility] Last Admin: 01/24/17 07:05 Dose: 42 mls/hr Morphine Sulfate (Morphine Injection -) 1 mg IVPB Q6H PRN PRN Reason: PAIN Oxycodone HCl (Roxicodone -) 5 mg PO Q4H PRN PRN Reason: PAIN Pantoprazole Sodium (Protonix -) 40 mg PO DAILY [facility] Last Admin: 01/24/17 10:31 Dose: Not Given - Objective Vital Signs: Vital Signs Temperature 98.3 F 01/24/17 06:00 Pulse Rate 90 01/24/17 07:09 Respiratory Rate 18 01/24/17 07:09 Blood Pressure 89/55 01/24/17 07:09 O2 Sat by Pulse Oximetry (%) 96 01/23/17 21:00 Constitutional: Yes: Calm Eyes: Yes: Conjunctiva Clear HENT: Yes: Atraumatic Cardiovascular: Yes: S1, S2 Respiratory: Yes: CTA Bilaterally Gastrointestinal: Yes: Normal Bowel Sounds, Soft Genitourinary: Yes: Incontinence Musculoskeletal: Yes: Muscle Weakness Edema: No Neurological: Yes: Oriented Labs: CBC, BMP 01/23/17 06:30 01/24/17 06:00 INR, PTT INR 1.04 (0.82-1.09) 01/12/17 14:30 Problem List - Problems (1) Acute renal failure Code(s): N17.9 - ACUTE KIDNEY FAILURE, UNSPECIFIED Qualifiers: Acute renal failure type: unspecified Qualified Code(s): N17.9 - Acute kidney failure, unspecified (2) Hypercalcemia Code(s): E83.52 - HYPERCALCEMIA (3) Multiple myeloma Code(s): C90.00 - MULTIPLE MYELOMA NOT HAVING ACHIEVED REMISSION Qualifiers: Multiple myeloma remission status: not in remission Qualified Code(s ): C90.00 - Multiple myeloma not having achieved remission Assessment/Plan Current Medications Generic Name Dose Route Start Last Admin Trade Name Freq PRN Reason Stop Dose Admin Acetaminophen 1,000 mg 01/24/17 11:36 Tylenol - PO Q6H PRN FEVER OR PAIN Calcium Carbonate 500 mg 01/22/17 14:15 01/24/17 10:31 Os-Ilna 500mg - PO 500 mg DAILY TOMÁS Administration Sodium Chloride 1,000 mls @ 42 mls/hr 01/23/17 17:30 01/24/17 07:05 Normal Saline - IV 42 mls/hr ASDIR TOMÁS Administration Morphine Sulfate 1 mg 01/22/17 17:43 Morphine Injection - IVPB Q6H PRN PAIN Oxycodone HCl 5 mg 01/24/17 10:55 Roxicodone - PO Q4H PRN PAIN Pantoprazole Sodium 40 mg 01/22/17 10:00 01/24/17 10:31 Protonix - PO Not Given DAILY TOMÁS Impression 1. Hypercalcemia improving 2. SHANIA 3. anemia 4. hypokalemia 5. multiple myeloma 6. malnutrition 7. failure to thrive Plan - replace phos and mag - renal function stabilizing - encourage PO intake - follow stool studies - discussed with family - check cmp in am Dr Soto
[2017-01-24] MEDS ORDERED: MAGNESIUM SULF 50% (8.12 MEQ/2 ML-1 GM VIAL) IVPB ONE (13:15)
[2017-01-24] MEDS ORDERED: POTASSIUM PHOSPHATE 16 MM in DEXTROSE 5%-WATER - 250 ML IVPB ONE (14:30)
[2017-01-24] MEDS: ACETAMINOPHEN 500 MG TABLET (FP) PO PRN (17:59)
[2017-01-24] MEDS ORDERED: ALPRAZolam 0.25 MG TABLET PO PRN (22:00)
[2017-01-25] MEDS: ACETAMINOPHEN 500 MG TABLET (FP) PO PRN ×2 (05:37→13:04)
[2017-01-25 08:02] LABS: BASOPHIL 0.5 % (0-2.0); EOSINOPHIL 0.4 % (0-4.5); MCHC 33.2 g/dl (32.0-36.0); MEAN CELL VOLUME 93.5 fl (80-96); MEAN PLT VOLUME 8.8 fl (7.5-11.1); NEUTROPHILS 71.2 % (42.8-82.8); PLATELET COUNT 118 K/MM3 (134-434); WHITE BLOOD COUNT 3.9 K/mm3 (4.0-10.0)
[2017-01-25 08:29] LABS: ANION GAP 8 (8-16); CO2 23 mmol/L (21-32); CREATININE 0.6 mg/dL (0.55-1.02); GLUCOSE,RANDOM 61 mg/dL (74-106); MAGNESIUM 2.2 mg/dL (1.8-2.4); PHOSPHOROUS 2.1 mg/dL (2.5-4.9)
[2017-01-25] MEDS: CALCIUM (OYSTER SHELL) 500 MG TABLET (FP) PO SCH (10:00)
[2017-01-25] MEDS: PANTOPRAZOLE 40 MG TABLET (FP) PO SCH (11:53)
--- NOTE | 2017-01-25 13:37 | PN ---
Progress Note, Physician Chief Complaint: Patient says she is having pain when sitting up. Says diarrhea improving and is now formed. No cp, sob, n/v. - Current Medication List Current Medications: Active Medications Acetaminophen (Tylenol -) 1,000 mg PO Q6H PRN PRN Reason: FEVER OR PAIN Last Admin: 01/25/17 13:04 Dose: 1,000 mg Alprazolam (Xanax -) 0.25 mg PO TID PRN PRN Reason: ANXIETY Last Admin: 01/24/17 21:47 Dose: 0.25 mg Calcium Carbonate (Os-Ilan 500mg -) 500 mg PO DAILY [facility] Last Admin: 01/25/17 10:00 Dose: 500 mg Sodium Chloride (Normal Saline -) 1,000 mls @ 42 mls/hr IV ASDIR [facility] Last Admin: 01/24/17 17:59 Dose: Not Given Morphine Sulfate (Morphine Injection -) 1 mg IVPB Q6H PRN PRN Reason: PAIN Oxycodone HCl (Roxicodone -) 5 mg PO Q4H PRN PRN Reason: PAIN Pantoprazole Sodium (Protonix -) 40 mg PO DAILY [facility] Last Admin: 01/25/17 11:53 Dose: Not Given Potassium Phos/Sodium Phos (Phos-Nak Packet -) 1 packet PO TID [facility] - Objective Vital Signs: Vital Signs Temperature 36.9 C 01/25/17 06:00 Pulse Rate 86 01/25/17 06:38 Respiratory Rate 20 01/25/17 06:38 Blood Pressure 87/48 01/25/17 06:38 O2 Sat by Pulse Oximetry (%) 95 01/24/17 21:00 Constitutional: Yes: Well Nourished, No Distress, Calm Cardiovascular: Yes: Regular Rate and Rhythm. No: Gallop, Murmur, Rub Respiratory: Yes: Regular, CTA Bilaterally. No: Rales, Rhonchi, Wheezes Gastrointestinal: Yes: Normal Bowel Sounds, Soft. No: Distention, Tenderness Extremities: Yes: WNL Edema: No Labs: CBC, BMP 01/25/17 06:00 01/25/17 06:00 INR, PTT INR 1.04 (0.82-1.09) 01/12/17 14:30 Problem List - Problems (1) Multiple myeloma Code(s): C90.00 - MULTIPLE MYELOMA NOT HAVING ACHIEVED REMISSION Qualifiers: Multiple myeloma remission status: not in remission Qualified Code(s ): C90.00 - Multiple myeloma not having achieved remission (2) Acute renal failure Code(s): N17.9 - ACUTE KIDNEY FAILURE, UNSPECIFIED Qualifiers: Acute renal failure type: unspecified Qualified Code(s): N17.9 - Acute kidney failure, unspecified (3) Hypercalcemia Code(s): E83.52 - HYPERCALCEMIA (4) Metabolic encephalopathy Code(s): G93.41 - METABOLIC ENCEPHALOPATHY (5) Hypocalcemia Code(s): E83.51 - HYPOCALCEMIA (6) Hypomagnesemia Code(s): E83.42 - HYPOMAGNESEMIA (7) Hypophosphatemia Code(s): E83.39 - OTHER DISORDERS OF PHOSPHORUS METABOLISM Assessment/Plan (1) Multiple myeloma Assessment/Plan: -oncology following and managing velcade -MRI head and spine shows numerous areas of MM -continue pain control Code(s): C90.00 - MULTIPLE MYELOMA NOT HAVING ACHIEVED REMISSION Qualifiers: Multiple myeloma remission status: not in remission Qualified Code(s ): C90.00 - Multiple myeloma not having achieved remission (2) Acute renal failure Assessment/Plan: -resolved Code(s): N17.9 - ACUTE KIDNEY FAILURE, UNSPECIFIED Qualifiers: Acute renal failure type: unspecified Qualified Code(s): N17.9 - Acute kidney failure, unspecified (3) Hypocalcemia Assessment/Plan: -continue oral calcium replacement Code(s): E83.52 - HYPERCALCEMIA (4) Metabolic encephalopathy -much improved -continue supportive care (5) Anemia -transfused with good response (6) FEN -replace phosphorus with neutraphos (7) Diarrhea -improving
--- NOTE | 2017-01-25 13:48 | PN ---
Progress Note, Physician History of Present Illness: Pt seen and examined at bedside. She is out of bed to chair today. She denies shortness of breath. The diarrhea has improved. - Current Medication List Current Medications: Active Medications Acetaminophen (Tylenol -) 1,000 mg PO Q6H PRN PRN Reason: FEVER OR PAIN Last Admin: 01/25/17 13:04 Dose: 1,000 mg Alprazolam (Xanax -) 0.25 mg PO TID PRN PRN Reason: ANXIETY Last Admin: 01/24/17 21:47 Dose: 0.25 mg Calcium Carbonate (Os-Ilan 500mg -) 500 mg PO DAILY [facility] Last Admin: 01/25/17 10:00 Dose: 500 mg Sodium Chloride (Normal Saline -) 1,000 mls @ 42 mls/hr IV ASDIR [facility] Last Admin: 01/24/17 17:59 Dose: Not Given Morphine Sulfate (Morphine Injection -) 1 mg IVPB Q6H PRN PRN Reason: PAIN Oxycodone HCl (Roxicodone -) 5 mg PO Q4H PRN PRN Reason: PAIN Pantoprazole Sodium (Protonix -) 40 mg PO DAILY [facility] Last Admin: 01/25/17 11:53 Dose: Not Given Potassium Phos/Sodium Phos (Phos-Nak Packet -) 1 packet PO TID [facility] - Objective Vital Signs: Vital Signs Temperature 98.5 F 01/25/17 06:00 Pulse Rate 86 01/25/17 06:38 Respiratory Rate 20 01/25/17 06:38 Blood Pressure 87/48 01/25/17 06:38 O2 Sat by Pulse Oximetry (%) 95 01/24/17 21:00 Constitutional: Yes: Calm Eyes: Yes: Conjunctiva Clear HENT: Yes: Atraumatic Cardiovascular: Yes: S1, S2 Respiratory: Yes: CTA Bilaterally Gastrointestinal: Yes: Soft Genitourinary: Yes: WNL Musculoskeletal: Yes: Muscle Weakness Edema: No Neurological: Yes: Oriented Labs: CBC, BMP 01/25/17 06:00 01/25/17 06:00 INR, PTT INR 1.04 (0.82-1.09) 01/12/17 14:30 Problem List - Problems (1) Acute renal failure Code(s): N17.9 - ACUTE KIDNEY FAILURE, UNSPECIFIED Qualifiers: Acute renal failure type: unspecified Qualified Code(s): N17.9 - Acute kidney failure, unspecified (2) Hypercalcemia Code(s): E83.52 - HYPERCALCEMIA (3) Multiple myeloma Code(s): C90.00 - MULTIPLE MYELOMA NOT HAVING ACHIEVED REMISSION Qualifiers: Multiple myeloma remission status: not in remission Qualified Code(s ): C90.00 - Multiple myeloma not having achieved remission Assessment/Plan Current Medications Generic Name Dose Route Start Last Admin Trade Name Freq PRN Reason Stop Dose Admin Acetaminophen 1,000 mg 01/24/17 11:36 01/25/17 13:04 Tylenol - PO 1,000 mg Q6H PRN Administration FEVER OR PAIN Alprazolam 0.25 mg 01/24/17 22:00 01/24/17 21:47 Xanax - PO 0.25 mg TID PRN Administration ANXIETY Calcium Carbonate 500 mg 01/22/17 14:15 01/25/17 10:00 Os-Ilan 500mg - PO 500 mg DAILY [facility] Administration Sodium Chloride 1,000 mls @ 42 mls/hr 01/23/17 17:30 01/24/17 17:59 Normal Saline - IV Not Given ASDIR [facility] Morphine Sulfate 1 mg 01/22/17 17:43 Morphine Injection - IVPB Q6H PRN PAIN Oxycodone HCl 5 mg 01/24/17 10:55 Roxicodone - PO Q4H PRN PAIN Pantoprazole Sodium 40 mg 01/22/17 10:00 01/25/17 11:53 Protonix - PO Not Given DAILY [facility] Potassium Phos/Sodium Phos 1 packet 01/25/17 14:00 Phos-Nak Packet - PO TID [facility] Impression 1. Hypercalcemia improving 2. SHANIA 3. anemia 4. hypokalemia 5. multiple myeloma 6. malnutrition 7. failure to thrive Plan - cont fluids - cont calcium supps as level is low - check cmp to see albumin - encourage PO intake - discussed with family - replace phos Dr Soto
[2017-01-25] MEDS ORDERED: NAPH,MB-DB/K PH,MBDB POWDER PACKET PO SCH (14:00)
[2017-01-25] MEDS ORDERED: POTASSIUM PHOSPHATE 15 MM in DEXTROSE 5%-WATER - 250 ML IVPB ONE (15:00)
--- NOTE | 2017-01-25 19:48 | PN ---
Progress Note (short form) - Note Progress Note: Patient seen and examined more alert, answering questions has some diarrhea no cramping Last Vital Signs Temp Pulse Resp BP Pulse Ox 97.8 F 84 19 94/53 97 01/25/17 18:00 01/25/17 18:00 01/25/17 18:00 01/25/17 18:00 01/25/17 09:00 Cor: RSR, No murmurs, No gallops Lungs: decreased at bases Abd: Soft, Normal bowel sounds, No organomegaly Ext:No significant edema Abnormal Lab Results 01/25/17 01/25/17 06:00 06:00 WBC 3.9 L RBC 2.73 L Hgb 8.5 L Hct 25.6 L RDW 18.0 H Plt Count 118 L Monocytes % 11.6 H Chloride 109 H Random Glucose 61 L Calcium 6.0 L* Phosphorus 2.1 L D Active Medications Generic Name Dose Route Start Last Admin Trade Name Freq PRN Reason Stop Dose Admin Acetaminophen 1,000 mg 01/24/17 11:36 01/25/17 13:04 Tylenol - PO 1,000 mg Q6H PRN Administration FEVER OR PAIN Alprazolam 0.25 mg 01/24/17 22:00 01/24/17 21:47 Xanax - PO 0.25 mg TID PRN Administration ANXIETY Calcium Carbonate 500 mg 01/22/17 14:15 01/25/17 10:00 Os-Ilan 500mg - PO 500 mg DAILY [facility] Administration Sodium Chloride 1,000 mls @ 42 mls/hr 01/23/17 17:30 01/24/17 17:59 Normal Saline - IV Not Given ASDIR [facility] Potassium Phosphate 15 mm/ 255 mls @ 42.5 mls/hr 01/25/17 15:00 01/25/17 15:53 Dextrose IVPB 01/25/17 20:59 42.5 mls/hr ONCE ONE Administration Morphine Sulfate 1 mg 01/22/17 17:43 Morphine Injection - IVPB Q6H PRN PAIN Oxycodone HCl 5 mg 01/24/17 10:55 Roxicodone - PO Q4H PRN PAIN Pantoprazole Sodium 40 mg 01/22/17 10:00 01/25/17 11:53 Protonix - PO Not Given DAILY [facility] Potassium Phos/Sodium Phos 1 packet 01/25/17 14:00 01/25/17 15:53 Phos-Nak Packet - PO 1 packet TID [facility] Administration A/P 81 y/o patient with Multiple Myeloma Hypercalcemia Altered Mental status SHANIA Bone pains s/p velcade /dex C1 D10 MRI spine/brain--extensive vertebral /skull mets. frontal skull--epidural lesion.No cord compression also c/o rt. hip pain--will check CT non contrast of pelvis gentle hydration Check stool for c.diff and oand P suspect neutraphos induced diarrhea will discuss with primary team
[2017-01-25] MEDS: SODIUM CHLORIDE 1,000 ML IV SCH ×2 (21:08→21:31)
[2017-01-26] MEDS: ACETAMINOPHEN 500 MG TABLET (FP) PO PRN ×2 (01:32→12:57)
[2017-01-26 07:15] LABS: MCHC 33.3 g/dl (32.0-36.0); MEAN CELL VOLUME 93.3 fl (80-96); MEAN PLT VOLUME 8.6 fl (7.5-11.1); PLATELET COUNT 126 K/MM3 (134-434); RDW 17.8 % (11.6-15.6); WHITE BLOOD COUNT 3.1 K/mm3 (4.0-10.0)
[2017-01-26 07:35] LABS: ALBUMIN 2.3 g/dl (3.4-5.0); ALK PHOS 93 U/L (45-117); ANION GAP 8 (8-16); BILIRUBIN,TOTAL 0.3 mg/dL (0.2-1.0); CO2 21 mmol/L (21-32); CREATININE 0.5 mg/dL (0.55-1.02); GLUCOSE,RANDOM 58 mg/dL (74-106); MAGNESIUM 1.8 mg/dL (1.8-2.4); PHOSPHOROUS 1.6 mg/dL (2.5-4.9); SGOT/AST 36 U/L (15-37); SGPT/ALT 32 U/L (12-78); TOT PROT 5.4 g/dl (6.4-8.2)
[2017-01-26 07:43] LABS: BILIRUBIN,DIRECT < 0.2 mg/dL (0.0-0.2)
[2017-01-26 07:46] LABS: CALCIUM 5.6 mg/dL (8.5-10.1)
[2017-01-26 08:56] LABS: PLATELET ESTIMATE DECREASED (NORMAL); TOTAL CELLS COUNTED 100
[2017-01-26] MEDS: CALCIUM (OYSTER SHELL) 500 MG TABLET (FP) PO SCH (09:02)
[2017-01-26] MEDS: PANTOPRAZOLE 40 MG TABLET (FP) PO SCH (09:07)
[2017-01-26] MEDS ORDERED: INSULIN (NOVOLOG) ASPART 100 UNITS/ML 10ML VIAL ONE (10:33)
[2017-01-26] MEDS ORDERED: POTASSIUM PHOSPHATE 16 MM in DEXTROSE 5%-WATER - 250 ML IVPB ONE (11:58)
--- NOTE | 2017-01-26 12:01 | PN ---
Progress Note, Physician Chief Complaint: Patient says she does not knows how she feels. Diarrhea returned with neutrophos. Denies cp or sob. - Current Medication List Current Medications: Active Medications Acetaminophen (Tylenol -) 1,000 mg PO Q6H PRN PRN Reason: FEVER OR PAIN Last Admin: 01/26/17 01:32 Dose: 1,000 mg Alprazolam (Xanax -) 0.25 mg PO TID PRN PRN Reason: ANXIETY Last Admin: 01/24/17 21:47 Dose: 0.25 mg Calcium Carbonate (Os-Ilan 500mg -) 500 mg PO DAILY [facility] Last Admin: 01/26/17 09:02 Dose: 500 mg Sodium Chloride (Normal Saline -) 1,000 mls @ 60 mls/hr IV ASDIR [facility] Last Admin: 01/25/17 21:31 Dose: 60 mls/hr Morphine Sulfate (Morphine Injection -) 1 mg IVPB Q6H PRN PRN Reason: PAIN Oxycodone HCl (Roxicodone -) 5 mg PO Q4H PRN PRN Reason: PAIN Pantoprazole Sodium (Protonix -) 40 mg PO DAILY [facility] Last Admin: 01/26/17 09:07 Dose: Not Given - Objective Vital Signs: Vital Signs Temperature 36.8 C 01/26/17 08:12 Pulse Rate 96 H 01/26/17 10:22 Respiratory Rate 18 01/26/17 08:41 Blood Pressure 90/56 01/26/17 08:12 O2 Sat by Pulse Oximetry (%) 96 01/26/17 10:22 Constitutional: Yes: Well Nourished, No Distress, Calm Cardiovascular: Yes: Regular Rate and Rhythm. No: Gallop, Murmur, Rub Respiratory: Yes: Regular, CTA Bilaterally. No: Rales, Rhonchi, Wheezes Gastrointestinal: Yes: Normal Bowel Sounds, Soft. No: Distention, Tenderness Extremities: Yes: WNL Edema: No Labs: CBC, BMP 01/26/17 06:00 01/26/17 06:00 INR, PTT INR 1.04 (0.82-1.09) 01/12/17 14:30 Problem List - Problems (1) Multiple myeloma Code(s): C90.00 - MULTIPLE MYELOMA NOT HAVING ACHIEVED REMISSION Qualifiers: Multiple myeloma remission status: not in remission Qualified Code(s ): C90.00 - Multiple myeloma not having achieved remission (2) Acute renal failure Code(s): N17.9 - ACUTE KIDNEY FAILURE, UNSPECIFIED Qualifiers: Acute renal failure type: unspecified Qualified Code(s): N17.9 - Acute kidney failure, unspecified (3) Hypercalcemia Code(s): E83.52 - HYPERCALCEMIA (4) Metabolic encephalopathy Code(s): G93.41 - METABOLIC ENCEPHALOPATHY (5) Hypocalcemia Code(s): E83.51 - HYPOCALCEMIA (6) Hypomagnesemia Code(s): E83.42 - HYPOMAGNESEMIA (7) Hypophosphatemia Code(s): E83.39 - OTHER DISORDERS OF PHOSPHORUS METABOLISM Assessment/Plan (1) Multiple myeloma Assessment/Plan: -oncology following and managing velcade -MRI head and spine shows numerous areas of MM -continue pain control Code(s): C90.00 - MULTIPLE MYELOMA NOT HAVING ACHIEVED REMISSION Qualifiers: Multiple myeloma remission status: not in remission Qualified Code(s ): C90.00 - Multiple myeloma not having achieved remission (2) Acute renal failure Assessment/Plan: -resolved Code(s): N17.9 - ACUTE KIDNEY FAILURE, UNSPECIFIED Qualifiers: Acute renal failure type: unspecified Qualified Code(s): N17.9 - Acute kidney failure, unspecified (3) Hypocalcemia Assessment/Plan: -continue oral calcium replacement Code(s): E83.52 - HYPERCALCEMIA (4) Metabolic encephalopathy -much improved -continue supportive care (5) Anemia -transfused with good response (6) FEN -replace phosphorus with IV potassium phosphate (7) Diarrhea -secondary to sucralose in neutra-phos -no neutra-phos
--- NOTE | 2017-01-26 12:48 | CON.GI ---
Consult Consult Specialty:: GI - For Dr. Franklin Referred by:: Dr. Benavides Reason for Consultation:: Diarrhea - History of Present Illness Chief Complaint: "I was having uncontrollable diarrhea" History of Present Illness: 81F admitted through [facility] ER 01/12/17 for evaluation of confusion. She has a h/ o MM, noted to be hypercalcemic and has been getting treated for that. Prior to admission Ms. Clifton's daughter states that Rosalia was constipated, they had given her an enema and that prior to admission she was having soft bowel movements. About 5 days ago she developed diarrhea. NutraPhos supplements were stopped. C diff was negative and she had two formed BM's today. She denies any abdominal pain. It does appear as though Ms. Fuentes is receiving multiple dietary supplements from her daughter: Keith one, Maximum Vibrance and Y -Powder. She has never had an upper endoscopy or colonoscopy. there is no family history of colorectal cancer or other GI malignancy. - History Source History Provided By: Patient, Family Member, Medical Record Limitations to Obtaining History: No Limitations - Past Medical History Cardio/Vascular: Yes: Hyperlipdemia Pulmonary: Yes: COPD Heme/Onc: Yes: Other (Multiple Myeloma) Musculoskeletal: Yes: Osteoarthritis - Past Surgical History Additional Surgical History: Spinal surgery for T12 pathologic compression fx - Alcohol/Substance Use Hx Alcohol Use: No History of Substance Use: reports: None - Smoking History Smoking history: Never smoked Have you smoked in the past 12 months: No - Social History Usual Living Arrangement: Other () 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 ? dementia), CA: Sister (2, one 64 with COPD and chart lists Breast CA. she did not give me h/o bca), Other: Father (: 71 aneurysm. COPD), Mother, Sister, Daughter (healthy) Other Family History: No family history of colorectal cancer or other GI malignancy Review of Systems - Review of Systems Constitutional: denies: Unintentional Wgt. Loss Cardiovascular: denies: Palpitations Respiratory: denies: Cough, SOB Gastrointestinal: reports: Constipation (previously), Diarrhea (Improved). denies: Abdominal Pain, Dysphagia, Indigestion, Melena, Nausea, Rectal Bleeding , Vomiting, Vomiting Blood Physical Exam-GI Vital Signs: Vital Signs Temperature 98.3 F 01/26/17 08:12 Pulse Rate 96 H 01/26/17 10:22 Respiratory Rate 18 01/26/17 08:41 Blood Pressure 90/56 01/26/17 08:12 O2 Sat by Pulse Oximetry (%) 96 01/26/17 10:22 Constitutional: Yes: Calm Eyes: No: Sclera Icterus Cardiovascular: Yes: Regular Rate and Rhythm. No: Murmur Respiratory: Yes: CTA Bilaterally Gastrointestinal Inspection: No: Distention, Scars ...Auscultate: Yes: Normoactive Bowel Sounds ...Palpate: No: Guarding, Hepatomegaly, Splenomegaly, Tenderness, Tenderness, Rebound ...Percussion: No: Tympanitic Edema: Yes (Trace LE edema) Neurological: Yes: Alert, Oriented Labs: CBC, BMP 01/26/17 06:00 01/26/17 06:00 INR, PTT INR 1.04 (0.82-1.09) 01/12/17 14:30 Hepatic Panel Total Bilirubin 0.3 mg/dL (0.2-1.0) D 01/26/17 06:00 Direct Bilirubin < 0.2 mg/dL (0.0-0.2) 01/26/17 06:00 AST 36 U/L (15-37) 01/26/17 06:00 ALT 32 U/L (12-78) 01/26/17 06:00 Alkaline Phosphatase 93 U/L (45-117) 01/26/17 06:00 Albumin 2.3 g/dl (3.4-5.0) L 01/26/17 06:00 Stool C. Diff toxin/Antigen negative Problem List - Problems (1) Loose bowel movements Assessment/Plan: Overall seems to be improving after oral phosphorous supplementation discontinued Advised: Lactose free diet Avoidance of multiple dietary supplements as this could confound cause of diarrhea. One of the supplements for instance contained stevia extract that can precipitate loose BM;s I explained this to her daughter Stop protonix: her daughter says that she has not been taking this. PRN ranitidine for reflux / GERD now that calcium corrected (increased risk of PUD in hypercalcemia) Stool O&P and culture given symptomatology prior to admission Can follow-up in office with Dr. Franklin when acute issues are resolved to discuss screening colonoscopy Recall as needed Code(s): R19.7 - DIARRHEA, UNSPECIFIED
[2017-01-26] MEDS ORDERED: CALCIUM GLUCONATE 10% - 1,000 MG/10 ML VIAL IVPB ONE (17:00)
--- NOTE | 2017-01-26 17:03 | PN ---
Progress Note, Physician History of Present Illness: Pt seen and examined at bedside. She is more awake and alert today. She feels diarrhea is improving. - Current Medication List Current Medications: Active Medications Acetaminophen (Tylenol -) 1,000 mg PO Q6H PRN PRN Reason: FEVER OR PAIN Last Admin: 01/26/17 12:57 Dose: 1,000 mg Alprazolam (Xanax -) 0.25 mg PO TID PRN PRN Reason: ANXIETY Last Admin: 01/24/17 21:47 Dose: 0.25 mg Calcium Carbonate (Os-Ilan 500mg -) 500 mg PO DAILY [facility] Last Admin: 01/26/17 09:02 Dose: 500 mg Calcium Gluconate (Calcium Gluconate 10% -) 1,000 mg IVPB ONCE ONE Stop: 01/26/17 17:01 Sodium Chloride (Normal Saline -) 1,000 mls @ 60 mls/hr IV ASDIR [facility] Last Admin: 01/25/17 21:31 Dose: 60 mls/hr Morphine Sulfate (Morphine Injection -) 1 mg IVPB Q6H PRN PRN Reason: PAIN Oxycodone HCl (Roxicodone -) 5 mg PO Q4H PRN PRN Reason: PAIN Pantoprazole Sodium (Protonix -) 40 mg PO DAILY [facility] Last Admin: 01/26/17 09:07 Dose: Not Given - Objective Vital Signs: Vital Signs Temperature 98.0 F 01/26/17 14:46 Pulse Rate 103 H 01/26/17 14:46 Respiratory Rate 18 01/26/17 14:46 Blood Pressure 96/41 01/26/17 14:46 O2 Sat by Pulse Oximetry (%) 96 01/26/17 10:22 Constitutional: Yes: Calm Eyes: Yes: Conjunctiva Clear HENT: Yes: Atraumatic Neck: Yes: Supple Cardiovascular: Yes: S1, S2 Respiratory: Yes: CTA Bilaterally Gastrointestinal: Yes: Soft Genitourinary: Yes: WNL Musculoskeletal: Yes: WNL Edema: No Neurological: Yes: Oriented Psychiatric: Yes: Oriented Labs: CBC, BMP 01/26/17 06:00 01/26/17 06:00 INR, PTT INR 1.04 (0.82-1.09) 01/12/17 14:30 Problem List - Problems (1) Acute renal failure Code(s): N17.9 - ACUTE KIDNEY FAILURE, UNSPECIFIED Qualifiers: Acute renal failure type: unspecified Qualified Code(s): N17.9 - Acute kidney failure, unspecified (2) Hypercalcemia Code(s): E83.52 - HYPERCALCEMIA (3) Multiple myeloma Code(s): C90.00 - MULTIPLE MYELOMA NOT HAVING ACHIEVED REMISSION Qualifiers: Multiple myeloma remission status: not in remission Qualified Code(s ): C90.00 - Multiple myeloma not having achieved remission Assessment/Plan Current Medications Generic Name Dose Route Start Last Admin Trade Name Freq PRN Reason Stop Dose Admin Acetaminophen 1,000 mg 01/24/17 11:36 01/26/17 12:57 Tylenol - PO 1,000 mg Q6H PRN Administration FEVER OR PAIN Alprazolam 0.25 mg 01/24/17 22:00 01/24/17 21:47 Xanax - PO 0.25 mg TID PRN Administration ANXIETY Calcium Carbonate 500 mg 01/22/17 14:15 01/26/17 09:02 Os-Ilan 500mg - PO 500 mg DAILY [facility] Administration Sodium Chloride 1,000 mls @ 60 mls/hr 01/25/17 20:55 01/25/17 21:31 Normal Saline - IV 60 mls/hr ASDIR [facility] Administration Morphine Sulfate 1 mg 01/22/17 17:43 Morphine Injection - IVPB Q6H PRN PAIN Oxycodone HCl 5 mg 01/24/17 10:55 Roxicodone - PO Q4H PRN PAIN Pantoprazole Sodium 40 mg 01/22/17 10:00 01/26/17 09:07 Protonix - PO Not Given DAILY [facility] Impression 1. Hypercalcemia improving 2. SHANIA 3. anemia 4. hypokalemia 5. multiple myeloma 6. malnutrition 7. failure to thrive Plan - replace calcium - repeat labs in am - increase PO calcium - check lytes daily - supplement phos IV Dr Soto
[2017-01-26] MEDS: SODIUM CHLORIDE 1,000 ML IV SCH (21:38)
--- NOTE | 2017-01-26 21:44 | PN ---
Progress Note (short form) - Note Progress Note: Patient seen and examined more alert, answering questions has some diarrhea no cramping AFVSS Cor: RSR, No murmurs, No gallops Lungs: decreased at bases Abd: Soft, Normal bowel sounds, No organomegaly Ext:No significant edema Abnormal Lab Results 01/26/17 01/27/17 06:00 06:00 WBC 3.1 L 3.3 L RBC 2.59 L 2.38 L Hgb 8.0 L 7.5 L Hct 24.2 L 22.2 L RDW 17.8 H 17.9 H Plt Count 126 L 133 L Monocytes % (Manual) 14 H D Home Medication List Medication Instructions Recorded Confirmed Type NK [No Known Home Medication] 01/12/17 01/12/17 History Active Medications Generic Name Dose Route Start Last Admin Trade Name Freq PRN Reason Stop Dose Admin Acetaminophen 1,000 mg 01/24/17 11:36 01/27/17 07:51 Tylenol - PO 500 mg Q6H PRN Administration FEVER OR PAIN Alprazolam 0.25 mg 01/24/17 22:00 01/24/17 21:47 Xanax - PO 0.25 mg TID PRN Administration ANXIETY Calcium Carbonate 1,000 mg 01/26/17 17:03 Os-Ilan 500mg - PO DAILY [facility] Sodium Chloride 1,000 mls @ 60 mls/hr 01/25/17 20:55 01/26/17 21:38 Normal Saline - IV 60 mls/hr ASDIR [facility] Administration Morphine Sulfate 1 mg 01/22/17 17:43 Morphine Injection - IVPB Q6H PRN PAIN Oxycodone HCl 5 mg 01/24/17 10:55 Roxicodone - PO Q4H PRN PAIN Pantoprazole Sodium 40 mg 01/22/17 10:00 01/26/17 09:07 Protonix - PO Not Given DAILY [facility] A/P 81 y/o patient with Multiple Myeloma Hypercalcemia Altered Mental status SHANIA Bone pains s/p velcade /dex C1 D11 MRI spine/brain--extensive vertebral /skull mets. frontal skull--epidural lesion.No cord compression also c/o rt. hip pain--will check CT non contrast of pelvis/rt. femur/lt.femur- ------family debating on MRI vs CT scan and have not decided at this time gentle hydration c.diff neg. suspect neutraphos induced diarrhea ----stopped neutraphos holding velcade till diarrha better. check flat and upright xray
[2017-01-27 07:29] LABS: MCH 31.6 pg (25.7-33.7); MCHC 33.8 g/dl (32.0-36.0); MEAN CELL VOLUME 93.4 fl (80-96); MEAN PLT VOLUME 8.5 fl (7.5-11.1); PLATELET COUNT 133 K/MM3 (134-434); RDW 17.9 % (11.6-15.6); WHITE BLOOD COUNT 3.3 K/mm3 (4.0-10.0)
[2017-01-27] MEDS: ACETAMINOPHEN 500 MG TABLET (FP) PO PRN (07:51)
[2017-01-27 08:09] LABS: ALBUMIN 2.2 g/dl (3.4-5.0); ALK PHOS 90 U/L (45-117); ANION GAP 9 (8-16); BILIRUBIN,TOTAL 0.3 mg/dL (0.2-1.0); CO2 20 mmol/L (21-32); CREATININE 0.5 mg/dL (0.55-1.02); GLUCOSE,RANDOM 62 mg/dL (74-106); MAGNESIUM 1.4 mg/dL (1.8-2.4); PHOSPHOROUS 1.8 mg/dL (2.5-4.9); SGOT/AST 36 U/L (15-37); SGPT/ALT 31 U/L (12-78); TOT PROT 5.2 g/dl (6.4-8.2)
[2017-01-27 10:37] LABS: PLATELET ESTIMATE ADEQUATE (NORMAL); TOTAL CELLS COUNTED 100
[2017-01-27 10:38] LABS: MYELOCYTE 1 % (0-2); REACTIVE LYMPHOCYTES 1 % (0-80)
--- NOTE | 2017-01-27 11:11 | PN ---
Progress Note (short form) - Note Progress Note: Patient seen and examined More alert then when last seen. Discussed issue of management and care by treating physicians. Discussed addition of steroids to velcade regimen for myeloma. Last Vital Signs Temp Pulse Resp BP Pulse Ox 98.0 F 99 H 18 86/49 95 01/27/17 09:36 01/27/17 09:36 01/27/17 09:36 01/27/17 09:36 01/26/17 21:00 HEENT: SAV[place], EOM Intact Oropharynx: No thrush, No mucositis Neck: Supple Nodes: Without adenopathy Cor: RSR, No murmurs, No gallops Lungs: Clear to P&A Abd: Soft, Normal bowel sounds, No organomegaly Ext:No significant edema Skin: No rashes, Integument intact CBC, BMP 01/27/17 06:00 01/27/17 06:00 Current Medications Generic Name Dose Route Start Last Admin Trade Name Freq PRN Reason Stop Dose Admin Acetaminophen 1,000 mg 01/24/17 11:36 01/27/17 07:51 Tylenol - PO 500 mg Q6H PRN Administration FEVER OR PAIN Alprazolam 0.25 mg 01/24/17 22:00 01/24/17 21:47 Xanax - PO 0.25 mg TID PRN Administration ANXIETY Calcium Carbonate 1,000 mg 01/26/17 17:03 Os-Ilan 500mg - PO DAILY [facility] Sodium Chloride 1,000 mls @ 60 mls/hr 01/25/17 20:55 01/26/17 21:38 Normal Saline - IV 60 mls/hr ASDIR [facility] Administration Morphine Sulfate 1 mg 01/22/17 17:43 Morphine Injection - IVPB Q6H PRN PAIN Oxycodone HCl 5 mg 01/24/17 10:55 Roxicodone - PO Q4H PRN PAIN Pantoprazole Sodium 40 mg 01/22/17 10:00 01/26/17 09:07 Protonix - PO Not Given DAILY [facility] Impression Myeloma - not in remission Pancytopenia Electrolyte abnormality Pain right hip Plan: transfuse packed cells. Supplement K+, Ca++, Phos Has agreed to decadron 20 mg to be given at time of Velcade. MRI of pelvis and hips Have spent > 30 minutes in discussion and counseling with patient and daughter.
[2017-01-27] MEDS ORDERED: CALCIUM GLUCONATE 10% - 1,000 MG/10 ML VIAL IVPB ONE (11:45)
[2017-01-27] MEDS ORDERED: MAGNESIUM SULF 50% (8.12 MEQ/2 ML-1 GM VIAL) IVPB ONE (13:00)
[2017-01-27] MEDS: CALCIUM (OYSTER SHELL) 500 MG TABLET (FP) PO SCH (13:54)
[2017-01-27] MEDS: PANTOPRAZOLE 40 MG TABLET (FP) PO SCH (13:54)
[2017-01-27] MEDS ORDERED: POTASSIUM PHOSPHATE 40 MM in SODIUM CHLORIDE 500 ML IVPB ONE (14:00)
--- NOTE | 2017-01-27 16:16 | PN ---
Progress Note, Physician Chief Complaint: Patient says she is feeling better. Says diarrhea is improving. No cp, sob, n/ v. Tolerating more food. - Current Medication List Current Medications: Active Medications Acetaminophen (Tylenol -) 1,000 mg PO Q6H PRN PRN Reason: FEVER OR PAIN Last Admin: 01/27/17 07:51 Dose: 500 mg Alprazolam (Xanax -) 0.25 mg PO TID PRN PRN Reason: ANXIETY Last Admin: 01/24/17 21:47 Dose: 0.25 mg Calcium Carbonate (Os-Ilan 500mg -) 1,000 mg PO DAILY [facility] Last Admin: 01/27/17 13:54 Dose: Not Given Sodium Chloride (Normal Saline -) 1,000 mls @ 60 mls/hr IV ASDIR [facility] Last Admin: 01/26/17 21:38 Dose: 60 mls/hr Potassium Phosphate 40 mm/ (Sodium Chloride) 513.3333 mls @ 62.5 mls/hr IVPB ONCE ONE Stop: 01/27/17 22:12 Morphine Sulfate (Morphine Injection -) 1 mg IVPB Q6H PRN PRN Reason: PAIN Oxycodone HCl (Roxicodone -) 5 mg PO Q4H PRN PRN Reason: PAIN Pantoprazole Sodium (Protonix -) 40 mg PO DAILY [facility] Last Admin: 01/27/17 13:54 Dose: Not Given - Objective Vital Signs: Vital Signs Temperature 36.5 C 01/27/17 14:46 Pulse Rate 108 H 01/27/17 14:46 Respiratory Rate 20 01/27/17 14:46 Blood Pressure 101/50 01/27/17 14:46 O2 Sat by Pulse Oximetry (%) 97 01/27/17 09:36 Constitutional: Yes: Well Nourished, No Distress, Calm Cardiovascular: Yes: Regular Rate and Rhythm. No: Gallop, Murmur, Rub Respiratory: Yes: Regular, CTA Bilaterally. No: Rales, Rhonchi, Wheezes Gastrointestinal: Yes: Normal Bowel Sounds, Soft. No: Distention, Tenderness Extremities: Yes: WNL Edema: No Labs: CBC, BMP 01/27/17 06:00 01/27/17 06:00 INR, PTT INR 1.04 (0.82-1.09) 01/12/17 14:30 Problem List - Problems (1) Multiple myeloma Code(s): C90.00 - MULTIPLE MYELOMA NOT HAVING ACHIEVED REMISSION Qualifiers: Qualified Code(s): C90.00 - Multiple myeloma not having achieved remission (2) Acute renal failure Code(s): N17.9 - ACUTE KIDNEY FAILURE, UNSPECIFIED Qualifiers: Qualified Code(s): N17.9 - Acute kidney failure, unspecified (3) Hypercalcemia Code(s): E83.52 - HYPERCALCEMIA (4) Metabolic encephalopathy Code(s): G93.41 - METABOLIC ENCEPHALOPATHY (5) Hypocalcemia Code(s): E83.51 - HYPOCALCEMIA (6) Hypomagnesemia Code(s): E83.42 - HYPOMAGNESEMIA (7) Hypophosphatemia Code(s): E83.39 - OTHER DISORDERS OF PHOSPHORUS METABOLISM Assessment/Plan (1) Multiple myeloma Assessment/Plan: -case d/w oncology -planning for velcade and dexamethasone next week Code(s): C90.00 - MULTIPLE MYELOMA NOT HAVING ACHIEVED REMISSION Qualifiers: Multiple myeloma remission status: not in remission Qualified Code(s ): C90.00 - Multiple myeloma not having achieved remission (2) Acute renal failure Assessment/Plan: -resolved Code(s): N17.9 - ACUTE KIDNEY FAILURE, UNSPECIFIED Qualifiers: Acute renal failure type: unspecified Qualified Code(s): N17.9 - Acute kidney failure, unspecified (3) Hypocalcemia Assessment/Plan: -continue oral calcium replacement Code(s): E83.52 - HYPERCALCEMIA (4) Metabolic encephalopathy -resolved (5) Anemia -decreased -transfuse per oncology orders (6) FEN -replace phosphorus and magnesium (7) Diarrhea -secondary to sucralose in neutra-phos -no neutra-phos -resolving
--- NOTE | 2017-01-27 20:20 | PN ---
Progress Note (short form) - Note Progress Note: s/p hypercalcemia hypocalcemia s/p aj resolved Current Medications Acetaminophen (Tylenol -) 1,000 mg PO Q6H PRN PRN Reason: FEVER OR PAIN Last Admin: 01/27/17 07:51 Dose: 500 mg Alprazolam (Xanax -) 0.25 mg PO TID PRN PRN Reason: ANXIETY Last Admin: 01/24/17 21:47 Dose: 0.25 mg Calcium Carbonate (Os-Ilan 500mg -) 1,000 mg PO DAILY [facility] Last Admin: 01/27/17 13:54 Dose: Not Given Sodium Chloride (Normal Saline -) 1,000 mls @ 60 mls/hr IV ASDIR [facility] Last Admin: 01/26/17 21:38 Dose: 60 mls/hr Potassium Phosphate 40 mm/ (Sodium Chloride) 513.3333 mls @ 62.5 mls/hr IVPB ONCE ONE Stop: 01/27/17 22:12 Morphine Sulfate (Morphine Injection -) 1 mg IVPB Q6H PRN PRN Reason: PAIN Oxycodone HCl (Roxicodone -) 5 mg PO Q4H PRN PRN Reason: PAIN Pantoprazole Sodium (Protonix -) 40 mg PO DAILY [facility] Last Admin: 01/27/17 13:54 Dose: Not Given Last Vital Signs Temp Pulse Resp BP Pulse Ox 98.0 F 99 H 18 98/50 97 01/27/17 15:55 01/27/17 15:55 01/27/17 15:55 01/27/17 15:55 01/27/17 09:36 CBC, BMP 01/27/17 06:00 01/27/17 06:00 severe anemia hypocalcemia hypoPhos HypoMg++ Plan same rx f/u labs in am
[2017-01-27] MEDS: SODIUM CHLORIDE 1,000 ML IV SCH (21:18)
[2017-01-28] MEDS: ACETAMINOPHEN 500 MG TABLET (FP) PO PRN (03:06)
[2017-01-28 08:21] LABS: BASOPHIL 0.8 % (0-2.0); EOSINOPHIL 0.1 % (0-4.5); MCH 30.5 pg (25.7-33.7); MCHC 34.4 g/dl (32.0-36.0); MEAN CELL VOLUME 88.4 fl (80-96); MEAN PLT VOLUME 8.6 fl (7.5-11.1); NEUTROPHILS 73.2 % (42.8-82.8); PLATELET COUNT 141 K/MM3 (134-434); RDW 20.1 % (11.6-15.6); WHITE BLOOD COUNT 6.6 K/mm3 (4.0-10.0)
[2017-01-28 08:53] LABS: ALBUMIN 2.1 g/dl (3.4-5.0); ANION GAP 11 (8-16); CO2 18 mmol/L (21-32); GLUCOSE,RANDOM 58 mg/dL (74-106); MAGNESIUM 1.5 mg/dL (1.8-2.4); PHOSPHOROUS 3.6 mg/dL (2.5-4.9); SGOT/AST 54 U/L (15-37)
[2017-01-28 08:55] LABS: ALK PHOS 91 U/L (45-117); BILIRUBIN,TOTAL 0.4 mg/dL (0.2-1.0); CREATININE 0.5 mg/dL (0.55-1.02); SGPT/ALT 40 U/L (12-78); TOT PROT 5.2 g/dl (6.4-8.2)
--- NOTE | 2017-01-28 09:01 | PN ---
Progress Note (short form) - Note Progress Note: ID Full note dictated and reviewed with Dr Suarez Had fever 101 with no other complaints Selected Entries 01/28/17 06:35 Temperature 99 F Pulse Rate 95 H Respiratory 18 Rate Blood Pressure 95/58 HEENT No thrush Lung Clear Cor S1 S2 RR Abd Soft nontender Ext No edema Microbiology Laboratory Tests 01/27/17 01/28/17 06:00 06:05 WBC 6.6 D Hgb 9.0 L D Hct 26.1 L D Plt Count 141 Neutrophils % 73.2 Lymphocytes % 19.9 D Monocytes % 6.0 BUN 10 Creatinine 0.5 L Creat Clearance w eGFR > 60 Calcium 6.0 L* AST 36 ALT 31 Alkaline Phosphatase 90 Assessment Multiple myeloma S/P Velcade and steroids Now with isolated fever post blood transfusion Plan Currently looks very stable and temp down with no localizing findings or complaints I would be comfortable observing fever for the time being with no antibiotics Obtain cultures blood urine and chst xray Should fever return I WOULD treat with Vancomcyin 750mg bid and Zosyn 4.5grs q8h Extensive time taken explaining to daughter patient the above plan and all questions answered Sammy GONSALES
[2017-01-28 09:05] LABS: CALCIUM 5.8 mg/dL (8.5-10.1)
--- NOTE | 2017-01-28 09:23 | PN ---
Progress Note, Physician History of Present Illness: Patient eating a little better now. Dtr notes that bowels have been better since oral supplement of phosphorus stopped (had aspertame in it, which she has an allergy to). Received blood transfusion yesterday, hgb 9.0 today. - Current Medication List Current Medications: Active Medications Acetaminophen (Tylenol -) 1,000 mg PO Q6H PRN PRN Reason: FEVER OR PAIN Last Admin: 01/28/17 03:06 Dose: 1,000 mg Alprazolam (Xanax -) 0.25 mg PO TID PRN PRN Reason: ANXIETY Last Admin: 01/24/17 21:47 Dose: 0.25 mg Calcium Carbonate (Os-Ilan 500mg -) 1,000 mg PO DAILY [facility] Last Admin: 01/27/17 13:54 Dose: Not Given Sodium Chloride (Normal Saline -) 1,000 mls @ 60 mls/hr IV ASDIR [facility] Last Admin: 01/27/17 21:18 Dose: 60 mls/hr Morphine Sulfate (Morphine Injection -) 1 mg IVPB Q6H PRN PRN Reason: PAIN Oxycodone HCl (Roxicodone -) 5 mg PO Q4H PRN PRN Reason: PAIN Pantoprazole Sodium (Protonix -) 40 mg PO DAILY [facility] Last Admin: 01/27/17 13:54 Dose: Not Given - Objective Vital Signs: Vital Signs Temperature 99 F 01/28/17 06:35 Pulse Rate 95 H 01/28/17 06:35 Respiratory Rate 18 01/28/17 06:35 Blood Pressure 95/58 01/28/17 06:35 O2 Sat by Pulse Oximetry (%) 96 01/27/17 21:00 Constitutional: Yes: No Distress, Calm HENT: Yes: Atraumatic, Normocephalic Neck: Yes: Supple, Trachea Midline Cardiovascular: Yes: Regular Rate and Rhythm, S1, S2. No: Murmur Respiratory: Yes: Regular, CTA Bilaterally. No: Rales, Rhonchi, Wheezes Gastrointestinal: Yes: Normal Bowel Sounds, Soft. No: Distention, Tenderness Edema: No Neurological: Yes: Alert, Oriented Labs: CBC, BMP 01/28/17 06:05 01/28/17 06:05 INR, PTT INR 1.04 (0.82-1.09) 01/12/17 14:30 Assessment/Plan Current Active Problems Acute renal failure (Acute) Hypercalcemia (Acute) Hypocalcemia (Acute) Hypomagnesemia (Acute) Hypophosphatemia (Acute) Loose bowel movements (Acute) Metabolic encephalopathy (Acute) Multiple myeloma (Acute) -replete calcium -follow blood counts -oncology following for MM treatment discussed treatment with daughter at bedside
--- NOTE | 2017-01-28 09:43 | CONS ---
INFECTIOUS DISEASE CONSULTATION DATE OF CONSULTATION: DATE OF DICTATION: 01/28/2017 HISTORY OF PRESENT ILLNESS: This is an 81-year-old female who I am asked to see for evaluation of fever. Patient has a diagnosis of multiple myeloma and was admitted through the emergency room on January 12 for treatment of hypercalcemia with a calcium over 16 and confusion. During the course of her admission, she has been treated for hypercalcemia and received Velcade and dexamethasone. She is being regularly followed by Hematology and has had blood transfusion requirements including packed red blood cells which she received last evening. Subsequently, she developed a fever to 101; for which, I am now asked to see her. The patient is alert and denies any localizing complaints. Specifically, when asked, she denied any chills, shortness of breath, cough, mouth sores, abdominal pain, or dysuria. Two sets of blood cultures have been obtained and are currently pending. PAST MEDICAL HISTORY: Includes multiple myeloma. CURRENT MEDICATIONS: Protonix, Roxicodone, Xanax. ALLERGIES: PENICILLIN; nature of allergy currently unknown. SOCIAL HISTORY: Nonsmoker. No history of EtOH. Lives with family. FAMILY HISTORY: Reviewed and noncontributory. REVIEW OF SYSTEMS: Respiratory: No cough, shortness of breath. Cardiac: No chest pain, palpitations. Gastrointestinal: No abdominal pain, nausea, vomiting. Genitourinary: No dysuria, hematuria. PHYSICAL EXAMINATION: General/Vital Signs: She was an alert female with a temperature of 99, pulse 95 , blood pressure 95/58, respirations 18. Alert and oriented. HEENT: Sclerae are anicteric. Oropharynx without exudate or thrush. Neck: Supple. No adenopathy. Lungs: Clear percussion and auscultation. Heart: S1, S2. Regular rhythm. No audible murmur or gallop. Abdomen: Soft, nontender. Positive bowel sounds. Not distended. No organomegaly. Extremities: No clubbing, cyanosis, or edema. DIAGNOSTIC DATA: The white count is 6.6 with a hemoglobin of 9, platelets of 141. BUN of 10, creatinine 0.5. Calcium 6.0. Liver enzymes within normal limit. ASSESSMENT: An 81-year-old female with known multiple myeloma, presents January 11 with hypercalcemia, altered mental status, now has fever to 101 following blood transfusion. Her temperature is currently down, and she looks well. At this point, I find no localizing findings to suggest infection either by history or physical examination. Given the fact that she is clinically stable at this time, I would elect to observe her off of antibiotics. Agree with obtaining blood, urine cultures and should she spike fever, I would give vancomycin and Cefepime. However, I see that she has a PENICILLIN allergy and will discuss with her the nature of her allergy, with consideration of an alternative to penicillin such as a cefepime, possibly cefepime or aztreonam . KESHIA DELATORRE M.D. [id number] MTDJarod
[2017-01-28] MEDS ORDERED: CALCIUM GLUCONATE 10% - 1,000 MG/10 ML VIAL IVPB ONE (09:47)
[2017-01-28] MEDS: PANTOPRAZOLE 40 MG TABLET (FP) PO SCH (10:51)
--- NOTE | 2017-01-28 11:09 | PN ---
Progress Note (short form) - Note Progress Note: Progress Note (short form) - Note Progress Note: Seen in follow up. Ongoing weakness, malaise, anxiety. Febrile overnight (after RBC transfusion), and resumption of watery diarrhea this morning. Otherwise no complaints. Meds reviewed. Current Medications Generic Name Dose Route Start Last Admin Trade Name Freq PRN Reason Stop Dose Admin Acetaminophen 1,000 mg 01/24/17 11:36 01/28/17 03:06 Tylenol - PO 1,000 mg Q6H PRN Administration FEVER OR PAIN Alprazolam 0.25 mg 01/24/17 22:00 01/24/17 21:47 Xanax - PO 0.25 mg TID PRN Administration ANXIETY Calcium Carbonate 1,000 mg 01/26/17 17:03 01/27/17 13:54 Os-Ilan 500mg - PO Not Given DAILY [facility] Sodium Chloride 1,000 mls @ 60 mls/hr 01/25/17 20:55 01/27/17 21:18 Normal Saline - IV 60 mls/hr ASDIR [facility] Administration Morphine Sulfate 1 mg 01/22/17 17:43 Morphine Injection - IVPB Q6H PRN PAIN Oxycodone HCl 5 mg 01/24/17 10:55 Roxicodone - PO Q4H PRN PAIN Pantoprazole Sodium 40 mg 01/22/17 10:00 01/28/17 10:51 Protonix - PO Not Given DAILY [facility] On exam: Last Vital Signs Temp Pulse Resp BP Pulse Ox 99 F 95 H 18 95/58 96 01/28/17 06:35 01/28/17 06:35 01/28/17 06:35 01/28/17 06:35 01/27/17 21:00 General: Dry mucosa. Extremities: Pallor, no icterus. Chest:normal AE bilaterally, clear.. Abdomen: Soft, no organomegaly, no masses. Neuro: Alert, oriented, non-focal. CVS: Normal sinus rhythm, S1, S2, no gallop or murmur. CBC, BMP 01/28/17 06:05 01/28/17 06:05 Assessment. Myeloma - presently with pancytopenia, recently started on Velcade/DEX Presently with; Episodic diarrhea - was present several days ago but then resolved. Now recurred , accompanied by transient fever. C. diff negative. Thickened rectal wall on recent MRI - ?colitis. Followed by GI. Observe for now - fluid, electrolytes repletion PRN. Fever - resolved. Cultures thus far negative. ID following. Abics held for now. Hypocalcemia - continue oral calcium, IV calcium PRN Hypotensive - looks dry by my examination, fluid challenge.
[2017-01-28] MEDS ORDERED: SODIUM CHLORIDE 0.9% 1000 ML INFUS.BAG IV ONE (11:16)
[2017-01-28] MEDS: CALCIUM (OYSTER SHELL) 500 MG TABLET (FP) PO SCH (12:25)
[2017-01-28] MEDS: SODIUM CHLORIDE 1,000 ML IV SCH (20:45)
[2017-01-29 07:11] LABS: MCHC 33.7 g/dl (32.0-36.0); MEAN CELL VOLUME 89.1 fl (80-96); MEAN PLT VOLUME 8.3 fl (7.5-11.1); PLATELET COUNT 135 K/MM3 (134-434); RDW 20.1 % (11.6-15.6); WHITE BLOOD COUNT 3.9 K/mm3 (4.0-10.0)
[2017-01-29 07:41] LABS: ALBUMIN 2.1 g/dl (3.4-5.0); ANION GAP 8 (8-16); BILIRUBIN,TOTAL 0.5 mg/dL (0.2-1.0); CO2 20 mmol/L (21-32); CREATININE 0.5 mg/dL (0.55-1.02); GLUCOSE,RANDOM 58 mg/dL (74-106); MAGNESIUM 1.4 mg/dL (1.8-2.4); PHOSPHOROUS 2.2 mg/dL (2.5-4.9); SGOT/AST 43 U/L (15-37); SGPT/ALT 39 U/L (12-78)
[2017-01-29 07:43] LABS: ALK PHOS 84 U/L (45-117)
--- NOTE | 2017-01-29 08:24 | PN ---
Progress Note, Physician History of Present Illness: No diarrhea this morning, slept OK last night. - Current Medication List Current Medications: Active Medications Acetaminophen (Tylenol -) 1,000 mg PO Q6H PRN PRN Reason: FEVER OR PAIN Last Admin: 01/28/17 03:06 Dose: 1,000 mg Alprazolam (Xanax -) 0.25 mg PO TID PRN PRN Reason: ANXIETY Last Admin: 01/24/17 21:47 Dose: 0.25 mg Calcium Carbonate (Os-Ilan 500mg -) 1,000 mg PO DAILY [facility] Last Admin: 01/28/17 12:25 Dose: 1,000 mg Sodium Chloride (Normal Saline -) 1,000 mls @ 60 mls/hr IV ASDIR [facility] Last Admin: 01/28/17 20:45 Dose: Not Given Morphine Sulfate (Morphine Injection -) 1 mg IVPB Q6H PRN PRN Reason: PAIN Oxycodone HCl (Roxicodone -) 5 mg PO Q4H PRN PRN Reason: PAIN Pantoprazole Sodium (Protonix -) 40 mg PO DAILY [facility] Last Admin: 01/28/17 10:51 Dose: Not Given - Objective Vital Signs: Vital Signs Temperature 98.2 F 01/29/17 05:10 Pulse Rate 95 H 01/29/17 05:10 Respiratory Rate 18 01/29/17 05:10 Blood Pressure 95/55 01/29/17 05:10 O2 Sat by Pulse Oximetry (%) 97 01/28/17 21:00 Constitutional: Yes: No Distress, Calm Cardiovascular: Yes: Regular Rate and Rhythm, S1, S2. No: Murmur Respiratory: Yes: Regular, CTA Bilaterally. No: Rales, Rhonchi, Wheezes Gastrointestinal: Yes: Normal Bowel Sounds, Soft. No: Distention, Tenderness Edema: No Labs: CBC, BMP 01/29/17 06:15 01/29/17 06:15 INR, PTT INR 1.04 (0.82-1.09) 01/12/17 14:30 Assessment/Plan Current Active Problems Acute renal failure (Acute) Hypercalcemia (Acute) Hypocalcemia (Acute) Hypomagnesemia (Acute) Hypophosphatemia (Acute) Loose bowel movements (Acute) Metabolic encephalopathy (Acute) Multiple myeloma (Acute) -cont current treatment -will hold off IV calcium (cont PO supplement) -if continues to have diarrhea may have to evaluate for colitis (stool culture and c-diff negative, but sigmoid thickening on pelvic MRI) discussed treatment with daughter at bedside
--- NOTE | 2017-01-29 09:00 | PN ---
Progress Note (short form) - Note Progress Note: ID No further fevers complaints Off antibiotics Selected Entries 01/29/17 05:10 Temperature 98.2 F Pulse Rate 95 H Respiratory 18 Rate Blood Pressure 95/55 Microbiology 01/28/17 06:05 Blood - Peripheral Venous Blood Culture - Preliminary NO GROWTH OBTAINED AFTER 24 HOURS, INCUBATION TO CONTINUE FOR 4 DAYS. 01/28/17 06:05 Blood - Peripheral Venous Blood Culture - Preliminary NO GROWTH OBTAINED AFTER 24 HOURS, INCUBATION TO CONTINUE FOR 4 DAYS. Laboratory Tests 01/29/17 01/29/17 06:15 06:15 WBC 3.9 L D Hgb 8.6 L Hct 25.5 L Plt Count 135 BUN 8 Creatinine 0.5 L Assessment Myeloma with transfusion related fever neg cultures blood to date Plan Moniter temp and await final c/s Sammy GONSALES
[2017-01-29 09:09] LABS: CALCIUM 6.2 mg/dL (8.5-10.1)
[2017-01-29 09:19] LABS: PLATELET COMMENT2 NO CLOTTING DETECTED; PLATELET ESTIMATE SLT DECREASED (NORMAL); TOTAL CELLS COUNTED 100
[2017-01-29 09:20] LABS: SMUDGE CELLS FEW
[2017-01-29] MEDS: CALCIUM (OYSTER SHELL) 500 MG TABLET (FP) PO SCH (10:52)
[2017-01-29] MEDS: PANTOPRAZOLE 40 MG TABLET (FP) PO SCH (10:52)
--- NOTE | 2017-01-29 11:47 | PN ---
GI Progress Note Subjective: GI NOte: NO BMs overnight. Tolerating diet. No abdominal cramps. Daughter has objections to Ensure and will provide other supplements. MRI suggests perirectal wall edema - Objective Vital Signs: Vital Signs Temperature 98.2 F 01/29/17 05:10 Pulse Rate 95 H 01/29/17 05:10 Respiratory Rate 18 01/29/17 05:10 Blood Pressure 95/55 01/29/17 05:10 O2 Sat by Pulse Oximetry (%) 97 01/28/17 21:00 Constitutional: Anxious Gastrointestinal Inspection: Yes: Distention (softly distended) ...Auscultate: Yes: Hypoactive Bowel Sounds ...Palpate: Yes: Soft, Other (nontender) ...Percussion: Yes: Tympanitic Labs: CBC, BMP 01/29/17 06:15 01/29/17 06:15 INR, PTT INR 1.04 (0.82-1.09) 01/12/17 14:30 Laboratory Tests 01/29/17 01/29/17 06:15 06:15 WBC 3.9 L D Hct 25.5 L Plt Count 135 Calcium 6.2 L* Magnesium 1.4 L AST 43 H D ALT 39 Alkaline Phosphatase 84 Albumin 2.1 L Assessment/Plan The abrupt shut down of what the daughter describes as profuse diarrhea argues against a proctitis and instead suggests that Rosalia may have a paradoxical diarrhea due to impacted feces. I have emphasized the need to eat protein. I answered the daughter's questions. Will observe stool pattern.
--- NOTE | 2017-01-29 14:17 | PN ---
Progress Note (short form) - Note Progress Note: Progress Note (short form) - Note Progress Note: Seen in follow up. Overall doing better - still anxious - but diarrhea mostly abated, and no further febrile episodes. Meds reviewed. Current Medications Generic Name Dose Route Start Last Admin Trade Name Freq PRN Reason Stop Dose Admin Acetaminophen 1,000 mg 01/24/17 11:36 01/28/17 03:06 Tylenol - PO 1,000 mg Q6H PRN Administration FEVER OR PAIN Alprazolam 0.25 mg 01/24/17 22:00 01/24/17 21:47 Xanax - PO 0.25 mg TID PRN Administration ANXIETY Calcium Carbonate 1,000 mg 01/26/17 17:03 01/29/17 10:52 Os-Ilan 500mg - PO 1,000 mg DAILY [facility] Administration Sodium Chloride 1,000 mls @ 60 mls/hr 01/25/17 20:55 01/28/17 20:45 Normal Saline - IV Not Given ASDIR [facility] Morphine Sulfate 1 mg 01/22/17 17:43 Morphine Injection - IVPB Q6H PRN PAIN Oxycodone HCl 5 mg 01/24/17 10:55 Roxicodone - PO Q4H PRN PAIN Pantoprazole Sodium 40 mg 01/22/17 10:00 01/29/17 10:52 Protonix - PO Not Given DAILY [facility] On exam: Last Vital Signs Temp Pulse Resp BP Pulse Ox 98.2 F 95 H 18 95/55 97 01/29/17 09:00 01/29/17 09:00 01/29/17 09:00 01/29/17 09:00 01/28/17 21:00 General: Comfortable Extremities: Pallor, no icterus. Chest:Breathing comfortably Abdomen: Non-distended Neuro: Alert, oriented, non-focal. CBC, BMP 01/29/17 06:15 01/29/17 06:15 Assessment. Myeloma - presently with pancytopenia, recently started on Velcade/DEX Presently with; Episodic diarrhea - was present several days ago but then resolved. Brief transient recurrence - appears resolved. GI following - recommendations noted. Observe. Fever - resolved. Possibly FNHTR. Urine culture positive today (from 01/28) - defer to ID recommendations Hypocalcemia - continue oral calcium, IV calcium PRN Hypotensive - stable systolic 90-100 range. Fluid challenge PRN.
--- NOTE | 2017-01-29 19:57 | PN ---
Progress Note (short form) - Note Progress Note: s/p hypercalcemia hypocalcemia s/p aj resolved Current Medications Acetaminophen (Tylenol -) 1,000 mg PO Q6H PRN PRN Reason: FEVER OR PAIN Last Admin: 01/28/17 03:06 Dose: 1,000 mg Alprazolam (Xanax -) 0.25 mg PO TID PRN PRN Reason: ANXIETY Last Admin: 01/24/17 21:47 Dose: 0.25 mg Calcium Carbonate (Os-Ilan 500mg -) 1,000 mg PO DAILY [facility] Last Admin: 01/29/17 10:52 Dose: 1,000 mg Sodium Chloride (Normal Saline -) 1,000 mls @ 60 mls/hr IV ASDIR [facility] Last Admin: 01/28/17 20:45 Dose: Not Given Morphine Sulfate (Morphine Injection -) 1 mg IVPB Q6H PRN PRN Reason: PAIN Oxycodone HCl (Roxicodone -) 5 mg PO Q4H PRN PRN Reason: PAIN Pantoprazole Sodium (Protonix -) 40 mg PO DAILY [facility] Last Admin: 01/29/17 10:52 Dose: Not Given Last Vital Signs Temp Pulse Resp BP Pulse Ox 98.7 F 106 H 20 103/62 97 01/29/17 18:00 01/29/17 18:00 01/29/17 18:00 01/29/17 18:00 01/28/17 21:00 CBC, BMP 01/29/17 06:15 01/29/17 06:15 severe anemia hypocalcemia hypoPhos HypoMg++ metabolic acidosis from gi bicarb losses Plan same rx f/u labs in am
[2017-01-30] MEDS: SODIUM CHLORIDE 1,000 ML IV SCH ×3 (05:07→23:03)
[2017-01-30 07:15] LABS: MCH 29.9 pg (25.7-33.7); MEAN CELL VOLUME 90.7 fl (80-96); PLATELET COUNT 143 K/MM3 (134-434); RDW 19.8 % (11.6-15.6); WHITE BLOOD COUNT 4.1 K/mm3 (4.0-10.0)
[2017-01-30 07:44] LABS: ALBUMIN 2.1 g/dl (3.4-5.0); ANION GAP 10 (8-16); CO2 20 mmol/L (21-32); CREATININE 0.6 mg/dL (0.55-1.02); GLUCOSE,RANDOM 55 mg/dL (74-106); MAGNESIUM 1.4 mg/dL (1.8-2.4); PHOSPHOROUS 1.9 mg/dL (2.5-4.9); SGOT/AST 34 U/L (15-37); SGPT/ALT 31 U/L (12-78)
[2017-01-30 07:49] LABS: ALK PHOS 85 U/L (45-117); BILIRUBIN,TOTAL 0.6 mg/dL (0.2-1.0)
[2017-01-30 09:01] LABS: CALCIUM 6.5 mg/dL (8.5-10.1)
[2017-01-30 09:41] LABS: PLATELET COMMENT2 NO CLOTTING DETECTED; PLATELET ESTIMATE SLT DECREASED (NORMAL); TOTAL CELLS COUNTED 100
[2017-01-30 09:42] LABS: METAMYELOCYTE 1 % (0-2)
[2017-01-30] MEDS: PANTOPRAZOLE 40 MG TABLET (FP) PO SCH (10:02)
[2017-01-30] MEDS: CALCIUM (OYSTER SHELL) 500 MG TABLET (FP) PO SCH (10:02)
--- NOTE | 2017-01-30 10:05 | PN ---
Progress Note, Physician Chief Complaint: ID Asymptomatic NO fever - Current Medication List Current Medications: Active Medications Acetaminophen (Tylenol -) 1,000 mg PO Q6H PRN PRN Reason: FEVER OR PAIN Last Admin: 01/28/17 03:06 Dose: 1,000 mg Alprazolam (Xanax -) 0.25 mg PO TID PRN PRN Reason: ANXIETY Last Admin: 01/24/17 21:47 Dose: 0.25 mg Calcium Carbonate (Os-Ilan 500mg -) 1,000 mg PO DAILY [facility] Last Admin: 01/29/17 10:52 Dose: 1,000 mg Sodium Chloride (Normal Saline -) 1,000 mls @ 60 mls/hr IV ASDIR [facility] Last Admin: 01/30/17 05:09 Dose: 60 mls/hr Morphine Sulfate (Morphine Injection -) 1 mg IVPB Q6H PRN PRN Reason: PAIN Oxycodone HCl (Roxicodone -) 5 mg PO Q4H PRN PRN Reason: PAIN Pantoprazole Sodium (Protonix -) 40 mg PO DAILY [facility] Last Admin: 01/29/17 10:52 Dose: Not Given - Objective Vital Signs: Vital Signs Temperature 98.0 F 01/30/17 09:50 Pulse Rate 89 01/30/17 09:50 Respiratory Rate 16 01/30/17 09:50 Blood Pressure 93/54 01/30/17 09:50 O2 Sat by Pulse Oximetry (%) 95 01/29/17 21:00 Constitutional: Yes: No Distress Labs: CBC, BMP 01/30/17 06:00 01/30/17 06:00 INR, PTT INR 1.04 (0.82-1.09) 01/12/17 14:30 Assessment/Plan Microbiology 01/28/17 12:45 Urine - Urine Clean Catch Urine Culture - Preliminary Lactose Fermenting Neg Bacilli 01/28/17 06:05 Blood - Peripheral Venous Blood Culture - Preliminary NO GROWTH OBTAINED AFTER 48 HOURS, INCUBATION TO CONTINUE FOR 3 DAYS. 01/28/17 06:05 Blood - Peripheral Venous Blood Culture - Preliminary NO GROWTH OBTAINED AFTER 48 HOURS, INCUBATION TO CONTINUE FOR 3 DAYS. Laboratory Tests 01/30/17 01/30/17 06:00 06:00 WBC 4.1 Hgb 8.7 L Hct 26.4 L Plt Count 143 BUN 10 D Creatinine 0.6 Assessment Asymptomatic bacteruria Plan Suggested an oral antibiotic Keflex for a few days but daughters prefers her mom not be on additional meds concern for diarrhea Will order a U/A and observe unless she changes her mind Sammy GONSALES
--- NOTE | 2017-01-30 11:20 | PN ---
Progress Note, Physician History of Present Illness: Patient sitting up out of bed today. No bowel movement since yesterday. Still with painin back and along right flank, otherwise no change. - Current Medication List Current Medications: Active Medications Acetaminophen (Tylenol -) 1,000 mg PO Q6H PRN PRN Reason: FEVER OR PAIN Last Admin: 01/28/17 03:06 Dose: 1,000 mg Alprazolam (Xanax -) 0.25 mg PO TID PRN PRN Reason: ANXIETY Last Admin: 01/24/17 21:47 Dose: 0.25 mg Calcium Carbonate (Os-Ilan 500mg -) 1,000 mg PO DAILY [facility] Last Admin: 01/30/17 10:02 Dose: 1,000 mg Sodium Chloride (Normal Saline -) 1,000 mls @ 60 mls/hr IV ASDIR [facility] Last Admin: 01/30/17 05:09 Dose: 60 mls/hr Morphine Sulfate (Morphine Injection -) 1 mg IVPB Q6H PRN PRN Reason: PAIN Oxycodone HCl (Roxicodone -) 5 mg PO Q4H PRN PRN Reason: PAIN Pantoprazole Sodium (Protonix -) 40 mg PO DAILY [facility] Last Admin: 01/30/17 10:02 Dose: Not Given - Objective Vital Signs: Vital Signs Temperature 98.0 F 01/30/17 09:50 Pulse Rate 89 01/30/17 09:50 Respiratory Rate 16 01/30/17 09:50 Blood Pressure 93/54 01/30/17 09:50 O2 Sat by Pulse Oximetry (%) 95 01/29/17 21:00 Constitutional: Yes: No Distress, Calm HENT: Yes: Atraumatic, Normocephalic Cardiovascular: Yes: Regular Rate and Rhythm, S1, S2. No: Murmur Respiratory: Yes: Regular, CTA Bilaterally. No: Rales, Rhonchi, Wheezes Gastrointestinal: Yes: Normal Bowel Sounds, Soft. No: Distention, Tenderness Edema: No Labs: CBC, BMP 01/30/17 06:00 01/30/17 06:00 INR, PTT INR 1.04 (0.82-1.09) 01/12/17 14:30 Assessment/Plan Current Active Problems Acute renal failure (Acute) Hypercalcemia (Acute) Hypocalcemia (Acute) Hypomagnesemia (Acute) Hypophosphatemia (Acute) Loose bowel movements (Acute) Metabolic encephalopathy (Acute) Multiple myeloma (Acute) -cont current treatment -onc following for possible resumption of chemotherapy for MM discussed treatment with daughter at bedside
--- NOTE | 2017-01-30 12:33 | PN ---
Progress Note (short form) - Note Progress Note: Patient seen and examined alert, answering questions has some diarrhea no cramping Last Vital Signs Temp Pulse Resp BP Pulse Ox 98.0 F 89 16 93/54 95 01/30/17 09:50 01/30/17 09:50 01/30/17 09:50 01/30/17 09:50 01/29/17 21:00 Cor: RSR, No murmurs, No gallops Lungs: decreased at bases Abd: Soft, Normal bowel sounds, No organomegaly Ext:2+ edema b/l Abnormal Lab Results 01/30/17 01/30/17 06:00 06:00 RBC 2.91 L Hgb 8.7 L Hct 26.4 L RDW 19.8 H Monocytes % (Manual) 2 L Chloride 113 H Carbon Dioxide 20 L Random Glucose 55 L Calcium 6.5 L* Phosphorus 1.9 L Magnesium 1.4 L Total Protein 5.0 L Albumin 2.1 L Active Medications Acetaminophen (Tylenol -) 1,000 mg PO Q6H PRN PRN Reason: FEVER OR PAIN Last Admin: 01/28/17 03:06 Dose: 1,000 mg Alprazolam (Xanax -) 0.25 mg PO TID PRN PRN Reason: ANXIETY Last Admin: 01/24/17 21:47 Dose: 0.25 mg Calcium Carbonate (Os-Ilan 500mg -) 1,000 mg PO DAILY [facility] Last Admin: 01/30/17 10:02 Dose: 1,000 mg Sodium Chloride (Normal Saline -) 1,000 mls @ 60 mls/hr IV ASDIR [facility] Last Admin: 01/30/17 05:09 Dose: 60 mls/hr Morphine Sulfate (Morphine Injection -) 1 mg IVPB Q6H PRN PRN Reason: PAIN Oxycodone HCl (Roxicodone -) 5 mg PO Q4H PRN PRN Reason: PAIN Pantoprazole Sodium (Protonix -) 40 mg PO DAILY [facility] Last Admin: 01/30/17 10:02 Dose: Not Given A/P 81 y/o patient with Multiple Myeloma Hypercalcemia Altered Mental status SHANIA Bone pains s/p velcade /dex C1 D15. d11 velcade held due to diarrhea. To get velcade today. MRI spine/brain--extensive vertebral /skull mets. frontal skull--epidural lesion.No cord compression also c/o rt. hip pain-- mri pelvis ---extensive bone mets will get ortho consult diarrhea Rectal thickening nted on MRI--c.diff neg. discussed with GI team-- Post consti[pation diarrhea? neutraphos held off E. coli UTI-- patients daughters do not want her to ge t antibiotics at this time. discussed wit daughter at length --lowered immunity from myeloma. Risk of sepsis. discussed in great detail. At this time they want to repeat urine culture. they understand the risk of septic shock/ Lower extremity edema --will check duplex lower extremities
--- NOTE | 2017-01-30 14:24 | PN ---
GI Progress Note Subjective: GI NOte: Had 1 BM and 3PM yesterday and today after lunch. Stools have been semisolid to solid. Eating better. - Objective Vital Signs: Vital Signs Temperature 98.0 F 01/30/17 09:50 Pulse Rate 89 01/30/17 09:50 Respiratory Rate 16 01/30/17 09:50 Blood Pressure 93/54 01/30/17 09:50 O2 Sat by Pulse Oximetry (%) 95 01/29/17 21:00 Constitutional: Calm Gastrointestinal Inspection: Yes: Distention ...Auscultate: Yes: Hypoactive Bowel Sounds ...Palpate: Yes: Soft, Other (nontender) Labs: CBC, BMP 01/30/17 06:00 01/30/17 06:00 INR, PTT INR 1.04 (0.82-1.09) 01/12/17 14:30 Assessment/Plan The stool appearance an frequency is more indicative of paradoxical diarrhea than colitis. I have emphasized the need to add fruit to diet emphasizing protein. I answered both of the daughter's questions.
--- NOTE | 2017-01-30 16:13 | PN ---
Progress Note (short form) - Note Progress Note: s/p hypercalcemia hypocalcemia s/p aj resolved MM Current Medications Acetaminophen (Tylenol -) 1,000 mg PO Q6H PRN PRN Reason: FEVER OR PAIN Last Admin: 01/28/17 03:06 Dose: 1,000 mg Alprazolam (Xanax -) 0.25 mg PO TID PRN PRN Reason: ANXIETY Last Admin: 01/24/17 21:47 Dose: 0.25 mg Calcium Carbonate (Os-Ilan 500mg -) 1,000 mg PO DAILY [facility] Last Admin: 01/30/17 10:02 Dose: 1,000 mg Sodium Chloride (Normal Saline -) 1,000 mls @ 60 mls/hr IV ASDIR [facility] Last Admin: 01/30/17 05:09 Dose: 60 mls/hr Morphine Sulfate (Morphine Injection -) 1 mg IVPB Q6H PRN PRN Reason: PAIN Oxycodone HCl (Roxicodone -) 5 mg PO Q4H PRN PRN Reason: PAIN Pantoprazole Sodium (Protonix -) 40 mg PO DAILY [facility] Last Admin: 01/30/17 10:02 Dose: Not Given Last Vital Signs Temp Pulse Resp BP Pulse Ox 97.5 F L 96 H 20 114/66 95 01/30/17 15:20 01/30/17 15:20 01/30/17 15:20 01/30/17 15:20 01/29/17 21:00 Lungs clear Heart RRR Abd soft CBC, BMP 01/30/17 06:00 01/30/17 06:00 01/27/17 01/29/17 01/30/17 06:00 06:15 06:00 Calcium 6.0 L* 6.2 L* 6.5 L* Phosphorus 1.8 L 2.2 L D 1.9 L Magnesium 1.4 L D 1.4 L 1.4 L Albumin 2.2 L 2.1 L 2.1 L IMP- MM severe anemia hypocalcemia hypoPhos HypoMg++ metabolic acidosis from gi bicarb losses
[2017-01-30] MEDS ORDERED: BORTEZOMIB (VELCADE) 2.5 MG/ML SUB-Q INJECTION SQ ONE (18:00)
[2017-01-30] MEDS: ENOXAPARIN NA (PORCINE) 40 MG/0.4 ML DISP.SYRIN SQ SCH (18:00)
[2017-01-31 07:45] LABS: MCHC 33.3 g/dl (32.0-36.0); MEAN CELL VOLUME 90.1 fl (80-96); MEAN PLT VOLUME 7.8 fl (7.5-11.1); PLATELET COUNT 143 K/MM3 (134-434); RDW 19.6 % (11.6-15.6); WHITE BLOOD COUNT 4.8 K/mm3 (4.0-10.0)
[2017-01-31 08:08] LABS: ALK PHOS 88 U/L (45-117); ANION GAP 10 (8-16); BILIRUBIN,TOTAL 0.5 mg/dL (0.2-1.0); CO2 19 mmol/L (21-32); CREATININE 0.5 mg/dL (0.55-1.02); GLUCOSE,RANDOM 59 mg/dL (74-106); SGOT/AST 35 U/L (15-37); SGPT/ALT 28 U/L (12-78); TOT PROT 4.9 g/dl (6.4-8.2)
[2017-01-31 09:13] LABS: CALCIUM 6.6 mg/dL (8.5-10.1)
[2017-01-31 10:02] LABS: TOTAL CELLS COUNTED 100
[2017-01-31 10:58] LABS: URINE APPEARANCE TURBID; URINE BILIRUBIN NEGATIVE (NEGATIVE); URINE BLOOD 1+ (NEGATIVE); URINE COLOR YELLOW; URINE GLUCOSE (UA) NEGATIVE (NEGATIVE); URINE KETONE TRACE (NEGATIVE); URINE NITRITE POSITIVE (NEGATIVE); URINE UROBILINOGEN NEGATIVE mg/dL (0.2-1.0)
[2017-01-31 11:02] LABS: URINE LEUK ESTERASE 3+ (NEGATIVE); URINE PROTEIN 1+ (NEGATIVE)
[2017-01-31 11:03] LABS: URINE BACTERIA RARE /hpf (NONE SEEN); URINE MUCUS RARE; URINE RBC 5 /hpf (0-3); URINE WBC 351 /hpf (3-5); YEAST FEW
[2017-01-31] MEDS: CALCIUM (OYSTER SHELL) 500 MG TABLET (FP) PO SCH (11:18)
[2017-01-31] MEDS: ENOXAPARIN NA (PORCINE) 40 MG/0.4 ML DISP.SYRIN SQ SCH (11:19)
[2017-01-31] MEDS: SODIUM CHLORIDE 1,000 ML IV SCH (11:23)
[2017-01-31] MEDS: PANTOPRAZOLE 40 MG TABLET (FP) PO SCH (11:24)
[2017-01-31] MEDS ORDERED: POTASSIUM CHLORIDE TABS 20 MEQ TABLET.ER (FP) PO ONE (13:15)
--- NOTE | 2017-01-31 13:50 | PN ---
Progress Note, Physician Chief Complaint: Patient says she does not want antibiotics when discussing urine cultures. Becomes very upset and says that she is not going to eat secondary to being so upset and that she will refuse. Could not otherwise obtain subjective after this as she said she was too upset about the thought of antibiotics. Per daughters diarrhea becoming less and her eating is improving. - Current Medication List Current Medications: Active Medications Acetaminophen (Tylenol -) 1,000 mg PO Q6H PRN PRN Reason: FEVER OR PAIN Last Admin: 01/28/17 03:06 Dose: 1,000 mg Alprazolam (Xanax -) 0.25 mg PO TID PRN PRN Reason: ANXIETY Last Admin: 01/24/17 21:47 Dose: 0.25 mg Calcium Carbonate (Os-Ilan 500mg -) 1,000 mg PO DAILY [facility] Last Admin: 01/31/17 11:18 Dose: 1,000 mg Enoxaparin Sodium (Lovenox -) 40 mg SQ DAILY [facility] Last Admin: 01/31/17 11:19 Dose: 40 mg Sodium Chloride (Normal Saline -) 1,000 mls @ 60 mls/hr IV ASDIR [facility] Last Admin: 01/31/17 11:23 Dose: Not Given Pantoprazole Sodium (Protonix -) 40 mg PO DAILY [facility] Last Admin: 01/31/17 11:24 Dose: Not Given - Objective Vital Signs: Vital Signs Temperature 36.8 C 01/31/17 08:42 Pulse Rate 101 H 01/31/17 08:42 Respiratory Rate 18 01/31/17 08:42 Blood Pressure 112/64 01/31/17 08:42 O2 Sat by Pulse Oximetry (%) 95 01/30/17 21:00 Constitutional: Yes: Well Nourished, No Distress, Calm Cardiovascular: Yes: Regular Rate and Rhythm. No: Gallop, Murmur, Rub Respiratory: Yes: Regular, CTA Bilaterally. No: Rales, Rhonchi, Wheezes Gastrointestinal: Yes: Normal Bowel Sounds, Soft. No: Distention, Tenderness Extremities: Yes: WNL Edema: No Labs: CBC, BMP 01/31/17 06:00 01/31/17 06:00 INR, PTT INR 1.04 (0.82-1.09) 01/12/17 14:30 Problem List - Problems (1) Multiple myeloma Code(s): C90.00 - MULTIPLE MYELOMA NOT HAVING ACHIEVED REMISSION Qualifiers: Qualified Code(s): C90.00 - Multiple myeloma not having achieved remission (2) Acute renal failure Code(s): N17.9 - ACUTE KIDNEY FAILURE, UNSPECIFIED Qualifiers: Qualified Code(s): N17.9 - Acute kidney failure, unspecified (3) Hypercalcemia Code(s): E83.52 - HYPERCALCEMIA (4) Metabolic encephalopathy Code(s): G93.41 - METABOLIC ENCEPHALOPATHY (5) Hypocalcemia Code(s): E83.51 - HYPOCALCEMIA (6) Hypomagnesemia Code(s): E83.42 - HYPOMAGNESEMIA (7) Hypophosphatemia Code(s): E83.39 - OTHER DISORDERS OF PHOSPHORUS METABOLISM Assessment/Plan (1) Multiple myeloma Assessment/Plan: -per oncology note holding velcade secondary to diarrhea -defer further treatment and timing to oncology -possible ready for discharge soon Code(s): C90.00 - MULTIPLE MYELOMA NOT HAVING ACHIEVED REMISSION Qualifiers: Multiple myeloma remission status: not in remission Qualified Code(s ): C90.00 - Multiple myeloma not having achieved remission (2) Acute renal failure Assessment/Plan: -resolved Code(s): N17.9 - ACUTE KIDNEY FAILURE, UNSPECIFIED Qualifiers: Acute renal failure type: unspecified Qualified Code(s): N17.9 - Acute kidney failure, unspecified (3) Hypocalcemia Assessment/Plan: -continue oral calcium replacement -improving Code(s): E83.52 - HYPERCALCEMIA (4) Metabolic encephalopathy -resolved (5) Anemia -decreased -transfuse per oncology orders (6) FEN -replace potassium (7) Diarrhea -appreciate GI assistance -family convinced that diarrhea was secondary to IV magnesium and phosphorus -encouraged patient to eat more (8) E coli UTI -patient and family concerned about this being a contaminant -explained that with WBCs, leukocyte esterase, and nitrites in the urine combined with positive urine culture this is most likely infectious -however patient visibly upset about possibility of antibiotics -awaiting second urine culture -if positive, will again discuss use of antibiotics
--- NOTE | 2017-01-31 14:15 | PN ---
Progress Note, Physician History of Present Illness: Pt seen and examined at bedside. No new events. - Current Medication List Current Medications: Active Medications Acetaminophen (Tylenol -) 1,000 mg PO Q6H PRN PRN Reason: FEVER OR PAIN Last Admin: 01/28/17 03:06 Dose: 1,000 mg Alprazolam (Xanax -) 0.25 mg PO TID PRN PRN Reason: ANXIETY Last Admin: 01/24/17 21:47 Dose: 0.25 mg Calcium Carbonate (Os-Ilan 500mg -) 1,000 mg PO DAILY [facility] Last Admin: 01/31/17 11:18 Dose: 1,000 mg Enoxaparin Sodium (Lovenox -) 40 mg SQ DAILY [facility] Last Admin: 01/31/17 11:19 Dose: 40 mg Sodium Chloride (Normal Saline -) 1,000 mls @ 60 mls/hr IV ASDIR [facility] Last Admin: 01/31/17 11:23 Dose: Not Given Pantoprazole Sodium (Protonix -) 40 mg PO DAILY [facility] Last Admin: 01/31/17 11:24 Dose: Not Given - Objective Vital Signs: Vital Signs Temperature 98.2 F 01/31/17 14:07 Pulse Rate 117 H 01/31/17 14:07 Respiratory Rate 20 01/31/17 14:07 Blood Pressure 116/73 01/31/17 14:07 O2 Sat by Pulse Oximetry (%) 95 01/30/17 21:00 Constitutional: Yes: Calm Eyes: Yes: Conjunctiva Clear HENT: Yes: Atraumatic Neck: Yes: Supple Cardiovascular: Yes: S1, S2 Respiratory: Yes: CTA Bilaterally Gastrointestinal: Yes: Soft Genitourinary: Yes: WNL Musculoskeletal: Yes: WNL Edema: Yes Edema: LLE: Trace, RLE: Trace Neurological: Yes: Oriented Labs: CBC, BMP 01/31/17 06:00 01/31/17 06:00 INR, PTT INR 1.04 (0.82-1.09) 01/12/17 14:30 Problem List - Problems (1) Acute renal failure Code(s): N17.9 - ACUTE KIDNEY FAILURE, UNSPECIFIED Qualifiers: Qualified Code(s): N17.9 - Acute kidney failure, unspecified (2) Hypercalcemia Code(s): E83.52 - HYPERCALCEMIA (3) Multiple myeloma Code(s): C90.00 - MULTIPLE MYELOMA NOT HAVING ACHIEVED REMISSION Qualifiers: Qualified Code(s): C90.00 - Multiple myeloma not having achieved remission Assessment/Plan Current Medications Generic Name Dose Route Start Last Admin Trade Name Freq PRN Reason Stop Dose Admin Acetaminophen 1,000 mg 01/24/17 11:36 01/28/17 03:06 Tylenol - PO 1,000 mg Q6H PRN Administration FEVER OR PAIN Alprazolam 0.25 mg 01/24/17 22:00 01/24/17 21:47 Xanax - PO 0.25 mg TID PRN Administration ANXIETY Calcium Carbonate 1,000 mg 01/26/17 17:03 01/31/17 11:18 Os-Ilan 500mg - PO 1,000 mg DAILY [facility] Administration Enoxaparin Sodium 40 mg 01/30/17 16:30 01/31/17 11:19 Lovenox - SQ 40 mg DAILY [facility] Administration Sodium Chloride 1,000 mls @ 60 mls/hr 01/25/17 20:55 01/31/17 11:23 Normal Saline - IV Not Given ASDIR [facility] Pantoprazole Sodium 40 mg 01/22/17 10:00 01/31/17 11:24 Protonix - PO Not Given DAILY [facility] Impression 1. Hypercalcemia improving 2. SHANIA 3. anemia 4. hypokalemia 5. multiple myeloma 6. malnutrition 7. failure to thrive Plan - replace potassium - follow cultures - check phos and mag - will follow PRN Dr Soto
--- NOTE | 2017-01-31 14:42 | CONSULT ---
Consult - text type - Consultation Consultation Note: FULL CONSULT DICTATED IMP: MM WITH DIFFUSE LYTIC LESIONS BUT NO LONG BONE PAIN EVEN WITH AMBULATION PLAN: NEW XRAYS OF B FEMORA. WILL FOLLOW. WBAT FOR NNOW
--- NOTE | 2017-01-31 16:02 | CONS ---
DATE OF CONSULTATION: 01/31/2017 The patient is an 81-year-old female with a known diagnosis of multiple myeloma. The patient was complaining of some lower back pain, which caused an MRI to be performed of the pelvis. The MRI showed extensive diffuse neoplastic disease in the pelvis and the femoral diaphysis bilaterally. No obvious fracture was seen. This caused an orthopedic evaluation. Patient denies any recent history of fall or trauma. Patient denies any pain in her legs or arms with ambulation. Main complaint is still in the lower back. On physical exam, she has excellent range of motion of shoulder, wrists and fingers. She is weak throughout but no point tenderness, ecchymosis, swelling, erythema. She has excellent range of motion of hip, knee, ankles, and toes. No point tenderness, ecchymosis, swelling, erythema. She can ambulate with no pain but she is overall suffering from generalized weakness. IMPRESSION: Long history of multiple myeloma, found to have femoral lesions on an MRI but with no pain. Currently I will order new full length femur x-rays as that is the best modality to evaluate the cortical destruction and lytic lesions in the cortex. As patient has no pain with ambulation in upper or lower extremities, I would hold off operative intervention if at all possible, as patient is really run down and has had many days of non-ambulating and bed rest. I will order new films just to make sure that we do not have an impending fracture, but otherwise unless the x-rays show a very high-grade impending fracture, I would try to treat her conservatively. DIEUDONNE SALAS M.D. [id number]
--- NOTE | 2017-01-31 20:42 | PN ---
Progress Note (short form) - Note Progress Note: Patient seen and examined. Pt is comfortable sitting in the chair and having lunch. Seen by Ortho. Daughter at bedside. O/E: General: in NAD HEENT: supple Abdomen: Soft LE: mild edema Neuro: awake and alert. Last Vital Signs Temp Pulse Resp BP Pulse Ox 98.2 F 98 H 20 116/59 95 01/31/17 18:54 01/31/17 18:54 01/31/17 18:54 01/31/17 18:54 01/30/17 21:00 CBC, BMP 01/31/17 06:00 01/31/17 06:00 Current Medications Generic Name Dose Route Start Last Admin Trade Name Freq PRN Reason Stop Dose Admin Acetaminophen 1,000 mg 01/24/17 11:36 01/28/17 03:06 Tylenol - PO 1,000 mg Q6H PRN Administration FEVER OR PAIN Alprazolam 0.25 mg 01/24/17 22:00 01/24/17 21:47 Xanax - PO 0.25 mg TID PRN Administration ANXIETY Calcium Carbonate 1,000 mg 01/26/17 17:03 01/31/17 11:18 Os-Ilan 500mg - PO 1,000 mg DAILY [facility] Administration Enoxaparin Sodium 40 mg 01/30/17 16:30 01/31/17 11:19 Lovenox - SQ 40 mg DAILY [facility] Administration Sodium Chloride 1,000 mls @ 60 mls/hr 01/25/17 20:55 01/31/17 11:23 Normal Saline - IV Not Given ASDIR [facility] Magnesium Sulfate 2 gm 02/01/17 10:00 Magnesium Sulfate IVPB 02/01/17 10:01 ONCE ONE Pantoprazole Sodium 40 mg 01/22/17 10:00 01/31/17 11:24 Protonix - PO Not Given DAILY [facility] 81 y/o patient with Multiple Myeloma Admitted with HyperCa , AMS AMS resolved s/p velcade /dex C1 D16. d11 velcade held due to diarrhea. s/p velcade on 01/30Likely will continue further Rx as an OP and might switch to CyBorD weekly regimen. MRI spine/brain--extensive vertebral /skull mets. frontal skull--epidural lesion.No cord compression, bisphosphonates as an OP also c/o rt. hip pain-mri pelvis ---extensive bone mets, appreciate ortho consult diarrhea-- GI noted, the frequency is decreased as per the daughter. E. coli UTI-- Pt's daughter did not wanted to Rx and asked for a repeat UA/ Urine Cx, which is pending. Lower extremity edema -negative for DVT. Anticipate PT consult. Will follow Problem List - Problems (1) Acute renal failure Code(s): N17.9 - ACUTE KIDNEY FAILURE, UNSPECIFIED Qualifiers: Qualified Code(s): N17.9 - Acute kidney failure, unspecified (2) Hypercalcemia Code(s): E83.52 - HYPERCALCEMIA (3) Multiple myeloma Code(s): C90.00 - MULTIPLE MYELOMA NOT HAVING ACHIEVED REMISSION Qualifiers: Qualified Code(s): C90.00 - Multiple myeloma not having achieved remission (4) Low back strain Code(s): S39.012A - STRAIN OF MUSCLE, FASCIA AND TENDON OF LOWER BACK, INIT Qualifiers: Qualified Code(s): S39.012A - Strain of muscle, fascia and tendon of lower back, initial encounter
[2017-02-01 08:03] LABS: MCHC 33.4 g/dl (32.0-36.0); MEAN PLT VOLUME 7.8 fl (7.5-11.1); PLATELET COUNT 142 K/MM3 (134-434); RDW 19.7 % (11.6-15.6)
[2017-02-01 09:15] LABS: ALBUMIN 2.1 g/dl (3.4-5.0); GLUCOSE,RANDOM 58 mg/dL (74-106)
[2017-02-01 09:24] LABS: ALK PHOS 90 U/L (45-117); ANION GAP 9 (8-16); BILIRUBIN,TOTAL 0.4 mg/dL (0.2-1.0); CO2 20 mmol/L (21-32); CREATININE 0.5 mg/dL (0.55-1.02); MAGNESIUM 1.5 mg/dL (1.8-2.4); PHOSPHOROUS 1.5 mg/dL (2.5-4.9); SGOT/AST 43 U/L (15-37); SGPT/ALT 28 U/L (12-78); TOT PROT 5.2 g/dl (6.4-8.2)
[2017-02-01 09:54] LABS: CALCIUM 6.9 mg/dL (8.5-10.1)
[2017-02-01] MEDS ORDERED: MAGNESIUM SULF 50% (8.12 MEQ/2 ML-1 GM VIAL) IVPB ONE (10:00)
[2017-02-01] MEDS: ENOXAPARIN NA (PORCINE) 40 MG/0.4 ML DISP.SYRIN SQ SCH (11:08)
[2017-02-01] MEDS: CALCIUM (OYSTER SHELL) 500 MG TABLET (FP) PO SCH (11:08)
[2017-02-01] MEDS: PANTOPRAZOLE 40 MG TABLET (FP) PO SCH ×2 (11:09→11:13)
[2017-02-01 12:30] LABS: METAMYELOCYTE 1 % (0-2); PLATELET ESTIMATE ADEQUATE (NORMAL); TOTAL CELLS COUNTED 100
[2017-02-01] MEDS ORDERED: CEPHALEXIN MONOHYDRATE 500 MG CAPSULE (UD) PO SCH (13:00)
--- NOTE | 2017-02-01 13:35 | PN ---
Progress Note, Physician History of Present Illness: Pt seen and examined at bedside. She is out of bed to chair. She has poor appetite. - Current Medication List Current Medications: Active Medications Acetaminophen (Tylenol -) 1,000 mg PO Q6H PRN PRN Reason: FEVER OR PAIN Last Admin: 01/28/17 03:06 Dose: 1,000 mg Alprazolam (Xanax -) 0.25 mg PO TID PRN PRN Reason: ANXIETY Last Admin: 01/24/17 21:47 Dose: 0.25 mg Amino Acids (Prosource No Carb Liquid Pkt) 30 ml PO BID@0800,1730 [facility] Calcium Carbonate (Os-Ilan 500mg -) 1,000 mg PO DAILY [facility] Last Admin: 02/01/17 11:08 Dose: 1,000 mg Cephalexin HCl (Keflex -) 500 mg PO BID [facility] Enoxaparin Sodium (Lovenox -) 40 mg SQ DAILY [facility] Last Admin: 02/01/17 11:08 Dose: 40 mg Sodium Chloride (Normal Saline -) 1,000 mls @ 60 mls/hr IV ASDIR [facility] Last Admin: 01/31/17 11:23 Dose: Not Given Lactobacillus Acidophilus (Bacid -) 1 tab PO DAILY [facility] Pantoprazole Sodium (Protonix -) 40 mg PO DAILY [facility] Last Admin: 02/01/17 11:13 Dose: Not Given - Objective Vital Signs: Vital Signs Temperature 98.5 F 02/01/17 06:00 Pulse Rate 89 02/01/17 06:00 Respiratory Rate 20 02/01/17 09:00 Blood Pressure 95/55 02/01/17 06:00 O2 Sat by Pulse Oximetry (%) 96 01/31/17 21:00 Constitutional: Yes: Calm Eyes: Yes: Conjunctiva Clear HENT: Yes: Atraumatic Neck: Yes: Supple Cardiovascular: Yes: S1, S2 Respiratory: Yes: CTA Bilaterally Gastrointestinal: Yes: Soft Genitourinary: Yes: WNL Musculoskeletal: Yes: WNL Edema: Yes Edema: LLE: 1+, RLE: 1+ Neurological: Yes: Oriented Labs: CBC, BMP 02/01/17 06:00 02/01/17 06:00 INR, PTT INR 1.04 (0.82-1.09) 01/12/17 14:30 Problem List - Problems (1) Acute renal failure Code(s): N17.9 - ACUTE KIDNEY FAILURE, UNSPECIFIED Qualifiers: Qualified Code(s): N17.9 - Acute kidney failure, unspecified (2) Hypercalcemia Code(s): E83.52 - HYPERCALCEMIA (3) Multiple myeloma Code(s): C90.00 - MULTIPLE MYELOMA NOT HAVING ACHIEVED REMISSION Qualifiers: Qualified Code(s): C90.00 - Multiple myeloma not having achieved remission Assessment/Plan Current Medications Generic Name Dose Route Start Last Admin Trade Name Freq PRN Reason Stop Dose Admin Acetaminophen 1,000 mg 01/24/17 11:36 01/28/17 03:06 Tylenol - PO 1,000 mg Q6H PRN Administration FEVER OR PAIN Alprazolam 0.25 mg 01/24/17 22:00 01/24/17 21:47 Xanax - PO 0.25 mg TID PRN Administration ANXIETY Amino Acids 30 ml 02/01/17 17:30 Prosource No Carb Liquid Pkt PO BID@0800,1730 [facility] Calcium Carbonate 1,000 mg 01/26/17 17:03 02/01/17 11:08 Os-Ilan 500mg - PO 1,000 mg DAILY [facility] Administration Cephalexin HCl 500 mg 02/01/17 13:00 Keflex - PO BID [facility] Enoxaparin Sodium 40 mg 01/30/17 16:30 02/01/17 11:08 Lovenox - SQ 40 mg DAILY [facility] Administration Sodium Chloride 1,000 mls @ 60 mls/hr 01/25/17 20:55 01/31/17 11:23 Normal Saline - IV Not Given ASDIR [facility] Lactobacillus Acidophilus 1 tab 02/01/17 13:00 Bacid - PO DAILY [facility] Pantoprazole Sodium 40 mg 01/22/17 10:00 02/01/17 11:13 Protonix - PO Not Given DAILY [facility] Impression 1. Hypercalcemia improving 2. SHANIA 3. anemia 4. hypokalemia 5. multiple myeloma 6. malnutrition 7. failure to thrive Plan - can stop fluids - family do not want mag supplements - cont dietary supplements and encourage PO intake - replace phos IV - discussed with medical attending - will follow PRN Dr Soto
[2017-02-01] MEDS: LACTOBACILLUS ACIDOPHILUS 1 EACH TAB (FP) PO SCH (13:43)
--- NOTE | 2017-02-01 13:56 | PN ---
Progress Note (short form) - Note Progress Note: Patient seen and examined. Daughter at bedside. O/E: General: in NAD, OOb to chair HEENT: supple Abdomen: Soft LE: mild edema Neuro: awake and alert. b/l pitting edema Last Vital Signs Temp Pulse Resp BP Pulse Ox 98.5 F 89 20 95/55 96 02/01/17 06:00 02/01/17 06:00 02/01/17 09:00 02/01/17 06:00 01/31/17 21:00 CBC, BMP 02/01/17 06:00 02/01/17 06:00 Current Medications Generic Name Dose Route Start Last Admin Trade Name Freq PRN Reason Stop Dose Admin Acetaminophen 1,000 mg 01/24/17 11:36 01/28/17 03:06 Tylenol - PO 1,000 mg Q6H PRN Administration FEVER OR PAIN Alprazolam 0.25 mg 01/24/17 22:00 01/24/17 21:47 Xanax - PO 0.25 mg TID PRN Administration ANXIETY Amino Acids 30 ml 02/01/17 17:30 Prosource No Carb Liquid Pkt PO BID@0800,1730 [facility] Calcium Carbonate 1,000 mg 01/26/17 17:03 02/01/17 11:08 Os-Ilan 500mg - PO 1,000 mg DAILY [facility] Administration Cephalexin HCl 500 mg 02/01/17 13:00 Keflex - PO BID [facility] Enoxaparin Sodium 40 mg 01/30/17 16:30 02/01/17 11:08 Lovenox - SQ 40 mg DAILY [facility] Administration Potassium Phosphate 15 mm/ 255 mls @ 42.5 mls/hr 02/01/17 15:30 Dextrose IVPB 02/01/17 21:29 ONCE ONE Lactobacillus Acidophilus 1 tab 02/01/17 13:00 02/01/17 13:43 Bacid - PO 1 tab DAILY [facility] Administration Pantoprazole Sodium 40 mg 01/22/17 10:00 02/01/17 11:13 Protonix - PO Not Given DAILY [facility] 81 y/o patient with Multiple Myeloma Admitted with HyperCa , AMS AMS resolved s/p velcade /dex C1 D17. s/p velcade on 01/30. Likely will continue further Rx as an OP and switch to CyBorD vs Rigoberto/Dex weekly regimen. MRI spine/brain--extensive vertebral /skull mets. frontal skull--epidural lesion.No cord compression, bisphosphonates as an OP also c/o rt. hip pain-mri pelvis ---extensive bone mets, appreciate ortho consult diarrhea-- GI noted, the frequency is decreased as per the daughter, they do not want any mag/phos supplements, family will give home food which they think has decreased the frequency. E. coli UTI-repeat Urine studies with positive cultures, daughters to decide on treatment, explained that the she is at risk for serious infection if not treated, will hold off on the last dose of dex which would have been given with the prior velcade dose. Lower extremity edema -negative for DVT, stopped fluids. Anticipate PT consult. Will follow Problem List - Problems (1) Acute renal failure Code(s): N17.9 - ACUTE KIDNEY FAILURE, UNSPECIFIED Qualifiers: Qualified Code(s): N17.9 - Acute kidney failure, unspecified (2) Hypercalcemia Code(s): E83.52 - HYPERCALCEMIA (3) Multiple myeloma Code(s): C90.00 - MULTIPLE MYELOMA NOT HAVING ACHIEVED REMISSION Qualifiers: Qualified Code(s): C90.00 - Multiple myeloma not having achieved remission (4) Low back strain Code(s): S39.012A - STRAIN OF MUSCLE, FASCIA AND TENDON OF LOWER BACK, INIT Qualifiers: Qualified Code(s): S39.012A - Strain of muscle, fascia and tendon of lower back, initial encounter
--- NOTE | 2017-02-01 14:52 | PN ---
Progress Note, Physician Chief Complaint: Patient and family wit non-specific complaints. Mainly complains of "wanting to get out of this cycle". No cp, sob, n/v. With significant leg swelling. - Current Medication List Current Medications: Active Medications Acetaminophen (Tylenol -) 1,000 mg PO Q6H PRN PRN Reason: FEVER OR PAIN Last Admin: 01/28/17 03:06 Dose: 1,000 mg Alprazolam (Xanax -) 0.25 mg PO TID PRN PRN Reason: ANXIETY Last Admin: 01/24/17 21:47 Dose: 0.25 mg Amino Acids (Prosource No Carb Liquid Pkt) 30 ml PO BID@0800,1730 [facility] Calcium Carbonate (Os-Ilan 500mg -) 1,000 mg PO DAILY [facility] Last Admin: 02/01/17 11:08 Dose: 1,000 mg Enoxaparin Sodium (Lovenox -) 40 mg SQ DAILY [facility] Last Admin: 02/01/17 11:08 Dose: 40 mg Potassium Phosphate 15 mm/ (Dextrose) 255 mls @ 42.5 mls/hr IVPB ONCE ONE Stop: 02/01/17 21:29 Lactobacillus Acidophilus (Bacid -) 1 tab PO DAILY [facility] Last Admin: 02/01/17 13:43 Dose: 1 tab Levofloxacin (Levaquin -) 500 mg PO DAILY@0600 [facility] Pantoprazole Sodium (Protonix -) 40 mg PO DAILY [facility] Last Admin: 02/01/17 11:13 Dose: Not Given - Objective Vital Signs: Vital Signs Temperature 36.6 C 02/01/17 14:11 Pulse Rate 97 H 02/01/17 14:11 Respiratory Rate 20 02/01/17 14:11 Blood Pressure 116/64 02/01/17 14:11 O2 Sat by Pulse Oximetry (%) 96 01/31/17 21:00 Constitutional: Yes: Well Nourished, No Distress, Calm Cardiovascular: Yes: Regular Rate and Rhythm. No: Gallop, Murmur, Rub Respiratory: Yes: Regular, CTA Bilaterally. No: Rales, Rhonchi, Wheezes Gastrointestinal: Yes: Normal Bowel Sounds, Soft. No: Distention, Tenderness Extremities: Yes: WNL Edema: Yes Edema: LLE: 2+, RLE: 2+ Labs: CBC, BMP 02/01/17 06:00 02/01/17 06:00 INR, PTT INR 1.04 (0.82-1.09) 01/12/17 14:30 Problem List - Problems (1) Multiple myeloma Code(s): C90.00 - MULTIPLE MYELOMA NOT HAVING ACHIEVED REMISSION Qualifiers: Qualified Code(s): C90.00 - Multiple myeloma not having achieved remission (2) Acute renal failure Code(s): N17.9 - ACUTE KIDNEY FAILURE, UNSPECIFIED Qualifiers: Qualified Code(s): N17.9 - Acute kidney failure, unspecified (3) Hypercalcemia Code(s): E83.52 - HYPERCALCEMIA (4) Metabolic encephalopathy Code(s): G93.41 - METABOLIC ENCEPHALOPATHY (5) Hypocalcemia Code(s): E83.51 - HYPOCALCEMIA (6) Hypomagnesemia Code(s): E83.42 - HYPOMAGNESEMIA (7) Hypophosphatemia Code(s): E83.39 - OTHER DISORDERS OF PHOSPHORUS METABOLISM Assessment/Plan (1) Multiple myeloma Assessment/Plan: -per oncology note holding velcade secondary to diarrhea -defer further treatment and timing to oncology -possible ready for discharge soon Code(s): C90.00 - MULTIPLE MYELOMA NOT HAVING ACHIEVED REMISSION Qualifiers: Multiple myeloma remission status: not in remission Qualified Code(s ): C90.00 - Multiple myeloma not having achieved remission (2) Acute renal failure Assessment/Plan: -resolved Code(s): N17.9 - ACUTE KIDNEY FAILURE, UNSPECIFIED Qualifiers: Acute renal failure type: unspecified Qualified Code(s): N17.9 - Acute kidney failure, unspecified (3) Hypocalcemia Assessment/Plan: -continue oral calcium replacement -improving Code(s): E83.52 - HYPERCALCEMIA (4) Metabolic encephalopathy -resolved (5) Anemia -decreased -transfuse per oncology orders (6) FEN -replace phosphorus -d/c IVF secondary to edema -declining magnesium supplementation -again had long discussion about intake -willing to try ensure and other supplements (7) Diarrhea -encourage patient to eat more (8) E coli UTI -levaquin 500mg day 1
[2017-02-01] MEDS: LEVOFLOXACIN 500 MG TABLET (FP) PO SCH (15:28)
[2017-02-01] MEDS ORDERED: POTASSIUM PHOSPHATE 15 MM in DEXTROSE 5%-WATER - 250 ML IVPB ONE (15:30)
[2017-02-01] MEDS ORDERED: AMINO ACIDS/PROTEIN HYDROLYS 30 ML LIQUID.PKT PO SCH (17:30)
[2017-02-02] MEDS: LEVOFLOXACIN 500 MG TABLET (FP) PO SCH (06:04)
[2017-02-02 07:30] LABS: MCH 30.8 pg (25.7-33.7); MCHC 34.6 g/dl (32.0-36.0); MEAN CELL VOLUME 88.9 fl (80-96); MEAN PLT VOLUME 7.8 fl (7.5-11.1); PLATELET COUNT 147 K/MM3 (134-434); RDW 19.2 % (11.6-15.6); WHITE BLOOD COUNT 5.7 K/mm3 (4.0-10.0)
[2017-02-02 08:00] LABS: ANION GAP 8 (8-16); CALCIUM 7.3 mg/dL (8.5-10.1); CO2 23 mmol/L (21-32); CREATININE 0.6 mg/dL (0.55-1.02); GLUCOSE,RANDOM 69 mg/dL (74-106); MAGNESIUM 1.4 mg/dL (1.8-2.4); PHOSPHOROUS 2.4 mg/dL (2.5-4.9)
[2017-02-02 08:57] LABS: PLATELET ESTIMATE ADEQUATE (NORMAL); TOTAL CELLS COUNTED 100
[2017-02-02] MEDS: ENOXAPARIN NA (PORCINE) 40 MG/0.4 ML DISP.SYRIN SQ SCH (09:34)
[2017-02-02] MEDS: PANTOPRAZOLE 40 MG TABLET (FP) PO SCH (09:34)
[2017-02-02] MEDS: CALCIUM (OYSTER SHELL) 500 MG TABLET (FP) PO SCH (09:35)
[2017-02-02] MEDS: LACTOBACILLUS ACIDOPHILUS 1 EACH TAB (FP) PO SCH (09:35)
--- NOTE | 2017-02-02 10:12 | PN ---
Progress Note (short form) - Note Progress Note: Patient seen and examined alert, answering questions has some diarrhea no cramping Last Vital Signs Temp Pulse Resp BP Pulse Ox 98.0 F 89 16 93/54 95 01/30/17 09:50 01/30/17 09:50 01/30/17 09:50 01/30/17 09:50 01/29/17 21:00 Cor: RSR, No murmurs, No gallops Lungs: decreased at bases Abd: Soft, Normal bowel sounds, No organomegaly Ext:2+ edema b/l Abnormal Lab Results 01/30/17 01/30/17 06:00 06:00 RBC 2.91 L Hgb 8.7 L Hct 26.4 L RDW 19.8 H Monocytes % (Manual) 2 L Chloride 113 H Carbon Dioxide 20 L Random Glucose 55 L Calcium 6.5 L* Phosphorus 1.9 L Magnesium 1.4 L Total Protein 5.0 L Albumin 2.1 L Active Medications Acetaminophen (Tylenol -) 1,000 mg PO Q6H PRN PRN Reason: FEVER OR PAIN Last Admin: 01/28/17 03:06 Dose: 1,000 mg Alprazolam (Xanax -) 0.25 mg PO TID PRN PRN Reason: ANXIETY Last Admin: 01/24/17 21:47 Dose: 0.25 mg Calcium Carbonate (Os-Ilan 500mg -) 1,000 mg PO DAILY [facility] Last Admin: 01/30/17 10:02 Dose: 1,000 mg Sodium Chloride (Normal Saline -) 1,000 mls @ 60 mls/hr IV ASDIR [facility] Last Admin: 01/30/17 05:09 Dose: 60 mls/hr Morphine Sulfate (Morphine Injection -) 1 mg IVPB Q6H PRN PRN Reason: PAIN Oxycodone HCl (Roxicodone -) 5 mg PO Q4H PRN PRN Reason: PAIN Pantoprazole Sodium (Protonix -) 40 mg PO DAILY [facility] Last Admin: 01/30/17 10:02 Dose: Not Given A/P 81 y/o patient with Multiple Myeloma Hypercalcemia Altered Mental status SHANIA Bone pains clinically improved 4th dose velcade on 01/30 On weekly velcade/dex will add revlimid/cytoxan based on clinical course last zometa 01/12 Tolerating well overall MRI spine/brain--extensive vertebral /skull mets. frontal skull--epidural lesion.No cord compression also c/o rt. hip pain-- mri pelvis ---extensive bone mets Xrays also show lucent lesions in femurs ortho f/u diarrhea Rectal thickening noted on MRI--c.diff neg. neutraphos held off improving E. coli UTI-- On Levaquin Lower extremity edema --duplex neg. Thrombocytopenia: HITneg. stable On lovenox for DVT prophy;laxis rehab placement
--- NOTE | 2017-02-02 13:30 | PN ---
Progress Note, Physician History of Present Illness: Pt seen and examined at bedside. She is awake and appears comfortable. She denies shortness of breath. PO intake remains poor. - Current Medication List Current Medications: Active Medications Acetaminophen (Tylenol -) 1,000 mg PO Q6H PRN PRN Reason: FEVER OR PAIN Last Admin: 01/28/17 03:06 Dose: 1,000 mg Alprazolam (Xanax -) 0.25 mg PO TID PRN PRN Reason: ANXIETY Last Admin: 01/24/17 21:47 Dose: 0.25 mg Calcium Carbonate (Os-Ilan 500mg -) 1,000 mg PO DAILY [facility] Last Admin: 02/02/17 09:35 Dose: 1,000 mg Enoxaparin Sodium (Lovenox -) 40 mg SQ DAILY [facility] Last Admin: 02/02/17 09:34 Dose: 40 mg Lactobacillus Acidophilus (Bacid -) 1 tab PO DAILY [facility] Last Admin: 02/02/17 09:35 Dose: 1 tab Levofloxacin (Levaquin -) 500 mg PO DAILY@0600 [facility] Last Admin: 02/02/17 06:04 Dose: 500 mg Pantoprazole Sodium (Protonix -) 40 mg PO DAILY [facility] Last Admin: 02/02/17 09:34 Dose: Not Given - Objective Vital Signs: Vital Signs Temperature 98.3 F 02/02/17 08:53 Pulse Rate 92 H 02/02/17 08:53 Respiratory Rate 18 02/02/17 08:53 Blood Pressure 124/64 02/02/17 08:53 O2 Sat by Pulse Oximetry (%) 96 02/01/17 21:00 Constitutional: Yes: Calm Eyes: Yes: Conjunctiva Clear HENT: Yes: Atraumatic Neck: Yes: Supple Cardiovascular: Yes: S1, S2 Respiratory: Yes: CTA Bilaterally Gastrointestinal: Yes: Soft Genitourinary: Yes: WNL Musculoskeletal: Yes: Muscle Weakness Edema: Yes Edema: LLE: 1+, RLE: 1+ Neurological: Yes: Oriented Psychiatric: Yes: Oriented Labs: CBC, BMP 02/02/17 06:00 02/02/17 06:00 INR, PTT INR 1.04 (0.82-1.09) 01/12/17 14:30 Problem List - Problems (1) Acute renal failure Code(s): N17.9 - ACUTE KIDNEY FAILURE, UNSPECIFIED Qualifiers: Qualified Code(s): N17.9 - Acute kidney failure, unspecified (2) Hypercalcemia Code(s): E83.52 - HYPERCALCEMIA (3) Multiple myeloma Code(s): C90.00 - MULTIPLE MYELOMA NOT HAVING ACHIEVED REMISSION Qualifiers: Qualified Code(s): C90.00 - Multiple myeloma not having achieved remission Assessment/Plan Current Medications Generic Name Dose Route Start Last Admin Trade Name Freq PRN Reason Stop Dose Admin Acetaminophen 1,000 mg 01/24/17 11:36 01/28/17 03:06 Tylenol - PO 1,000 mg Q6H PRN Administration FEVER OR PAIN Alprazolam 0.25 mg 01/24/17 22:00 01/24/17 21:47 Xanax - PO 0.25 mg TID PRN Administration ANXIETY Calcium Carbonate 1,000 mg 01/26/17 17:03 02/02/17 09:35 Os-Ilan 500mg - PO 1,000 mg DAILY [facility] Administration Enoxaparin Sodium 40 mg 01/30/17 16:30 02/02/17 09:34 Lovenox - SQ 40 mg DAILY [facility] Administration Lactobacillus Acidophilus 1 tab 02/01/17 13:00 02/02/17 09:35 Bacid - PO 1 tab DAILY [facility] Administration Levofloxacin 500 mg 02/01/17 14:45 02/02/17 06:04 Levaquin - PO 500 mg DAILY@0600 [facility] Administration Pantoprazole Sodium 40 mg 01/22/17 10:00 02/02/17 09:34 Protonix - PO Not Given DAILY [facility] Laboratory Tests 02/01/17 02/02/17 06:00 06:00 Calcium 7.3 L Phosphorus 2.4 L D Magnesium 1.4 L Albumin 2.1 L Impression 1. Hypercalcemia improving 2. SHANIA 3. anemia 4. hypokalemia 5. multiple myeloma 6. malnutrition 7. failure to thrive Plan - replace phos - replace mag - renal function is stable - discussed with family - discussed with medical attending - will follow PRN Dr Soto
[2017-02-02] MEDS ORDERED: MAGNESIUM SULF 50% (8.12 MEQ/2 ML-1 GM VIAL) IVPB ONE (14:00)
[2017-02-02] MEDS ORDERED: POTASSIUM PHOSPHATE 20 MM in DEXTROSE 5%-WATER - 250 ML IVPB ONE (14:10)
--- NOTE | 2017-02-02 15:12 | PN ---
Progress Note, Physician Chief Complaint: Patient and family with no new complaints. Mainly asking when she can leave. Still with swelling but improved. No cp, sob, n/v. - Current Medication List Current Medications: Active Medications Acetaminophen (Tylenol -) 1,000 mg PO Q6H PRN PRN Reason: FEVER OR PAIN Last Admin: 01/28/17 03:06 Dose: 1,000 mg Alprazolam (Xanax -) 0.25 mg PO TID PRN PRN Reason: ANXIETY Last Admin: 01/24/17 21:47 Dose: 0.25 mg Calcium Carbonate (Os-Ilan 500mg -) 1,000 mg PO DAILY [facility] Last Admin: 02/02/17 09:35 Dose: 1,000 mg Enoxaparin Sodium (Lovenox -) 40 mg SQ DAILY [facility] Last Admin: 02/02/17 09:34 Dose: 40 mg Potassium Phosphate 20 mm/ (Dextrose) 256.6667 mls @ 64.167 mls/hr IVPB ONCE ONE Stop: 02/02/17 18:09 Last Admin: 02/02/17 14:43 Dose: 64.167 mls/hr Lactobacillus Acidophilus (Bacid -) 1 tab PO DAILY [facility] Last Admin: 02/02/17 09:35 Dose: 1 tab Levofloxacin (Levaquin -) 500 mg PO DAILY@0600 [facility] Last Admin: 02/02/17 06:04 Dose: 500 mg Pantoprazole Sodium (Protonix -) 40 mg PO DAILY [facility] Last Admin: 02/02/17 09:34 Dose: Not Given - Objective Vital Signs: Vital Signs Temperature 36.5 C 02/02/17 14:59 Pulse Rate 92 H 02/02/17 14:59 Respiratory Rate 20 02/02/17 14:59 Blood Pressure 106/66 02/02/17 14:59 O2 Sat by Pulse Oximetry (%) 96 02/01/17 21:00 Constitutional: Yes: Well Nourished, No Distress, Calm Cardiovascular: Yes: Regular Rate and Rhythm. No: Gallop, Murmur, Rub Respiratory: Yes: Regular, CTA Bilaterally. No: Rales, Rhonchi, Wheezes Gastrointestinal: Yes: Normal Bowel Sounds, Soft. No: Distention, Tenderness Extremities: Yes: WNL Edema: Yes Edema: LLE: 2+, RLE: 2+ Labs: CBC, BMP 02/02/17 06:00 02/02/17 06:00 INR, PTT INR 1.04 (0.82-1.09) 01/12/17 14:30 Problem List - Problems (1) Multiple myeloma Code(s): C90.00 - MULTIPLE MYELOMA NOT HAVING ACHIEVED REMISSION Qualifiers: Qualified Code(s): C90.00 - Multiple myeloma not having achieved remission (2) Acute renal failure Code(s): N17.9 - ACUTE KIDNEY FAILURE, UNSPECIFIED Qualifiers: Qualified Code(s): N17.9 - Acute kidney failure, unspecified (3) Hypercalcemia Code(s): E83.52 - HYPERCALCEMIA (4) Metabolic encephalopathy Code(s): G93.41 - METABOLIC ENCEPHALOPATHY (5) Hypocalcemia Code(s): E83.51 - HYPOCALCEMIA (6) Hypomagnesemia Code(s): E83.42 - HYPOMAGNESEMIA (7) Hypophosphatemia Code(s): E83.39 - OTHER DISORDERS OF PHOSPHORUS METABOLISM Assessment/Plan (1) Multiple myeloma Assessment/Plan: -per oncology note holding velcade secondary to diarrhea -defer further treatment and timing to oncology -possible ready for discharge soon Code(s): C90.00 - MULTIPLE MYELOMA NOT HAVING ACHIEVED REMISSION Qualifiers: Multiple myeloma remission status: not in remission Qualified Code(s ): C90.00 - Multiple myeloma not having achieved remission (2) Acute renal failure Assessment/Plan: -resolved Code(s): N17.9 - ACUTE KIDNEY FAILURE, UNSPECIFIED Qualifiers: Acute renal failure type: unspecified Qualified Code(s): N17.9 - Acute kidney failure, unspecified (3) Hypocalcemia Assessment/Plan: -continue oral calcium replacement -improving Code(s): E83.52 - HYPERCALCEMIA (4) Metabolic encephalopathy -resolved (5) Anemia -decreased -transfuse per oncology orders (6) FEN -case d/w nephrology -replace magnesium and phosphorus -encouraged increased po intake (7) Diarrhea -resolved (8) E coli UTI -levaquin 500mg day 2
[2017-02-03] MEDS: LEVOFLOXACIN 500 MG TABLET (FP) PO SCH (06:38)
[2017-02-03 09:17] LABS: MCH 30.3 pg (25.7-33.7); MCHC 33.8 g/dl (32.0-36.0); MEAN CELL VOLUME 89.7 fl (80-96); MEAN PLT VOLUME 7.9 fl (7.5-11.1); PLATELET COUNT 148 K/MM3 (134-434); RDW 19.1 % (11.6-15.6)
[2017-02-03 09:24] LABS: WHITE BLOOD COUNT 5.8 K/mm3 (4.0-10.0)
[2017-02-03 09:43] LABS: ANION GAP 8 (8-16); CALCIUM 7.9 mg/dL (8.5-10.1); CO2 23 mmol/L (21-32); GLUCOSE,RANDOM 80 mg/dL (74-106); MAGNESIUM 1.8 mg/dL (1.8-2.4)
[2017-02-03 09:45] LABS: CREATININE 0.8 mg/dL (0.55-1.02)
[2017-02-03] MEDS: LACTOBACILLUS ACIDOPHILUS 1 EACH TAB (FP) PO SCH (11:02)
[2017-02-03] MEDS: ENOXAPARIN NA (PORCINE) 40 MG/0.4 ML DISP.SYRIN SQ SCH (11:02)
[2017-02-03] MEDS: PANTOPRAZOLE 40 MG TABLET (FP) PO SCH (11:02)
[2017-02-03] MEDS: CALCIUM (OYSTER SHELL) 500 MG TABLET (FP) PO SCH (11:03)
--- NOTE | 2017-02-03 12:40 | PN ---
Progress Note, Physician Chief Complaint: Patient denies cp, sob, n/v. swelling improved. - Current Medication List Current Medications: Active Medications Acetaminophen (Tylenol -) 1,000 mg PO Q6H PRN PRN Reason: FEVER OR PAIN Last Admin: 01/28/17 03:06 Dose: 1,000 mg Alprazolam (Xanax -) 0.25 mg PO TID PRN PRN Reason: ANXIETY Last Admin: 01/24/17 21:47 Dose: 0.25 mg Calcium Carbonate (Os-Ilan 500mg -) 1,000 mg PO DAILY [facility] Last Admin: 02/03/17 11:03 Dose: 1,000 mg Enoxaparin Sodium (Lovenox -) 40 mg SQ DAILY [facility] Last Admin: 02/03/17 11:02 Dose: 40 mg Lactobacillus Acidophilus (Bacid -) 1 tab PO DAILY [facility] Last Admin: 02/03/17 11:02 Dose: 1 tab Levofloxacin (Levaquin -) 500 mg PO DAILY@0600 [facility] Last Admin: 02/03/17 06:38 Dose: 500 mg Pantoprazole Sodium (Protonix -) 40 mg PO DAILY [facility] Last Admin: 02/03/17 11:02 Dose: Not Given - Objective Vital Signs: Vital Signs Temperature 36.5 C 02/03/17 08:54 Pulse Rate 89 02/03/17 08:54 Respiratory Rate 20 02/03/17 08:54 Blood Pressure 100/60 02/03/17 08:54 O2 Sat by Pulse Oximetry (%) 95 02/02/17 21:00 Constitutional: Yes: Well Nourished, No Distress, Calm Cardiovascular: Yes: Regular Rate and Rhythm. No: Gallop, Murmur, Rub Respiratory: Yes: Regular, CTA Bilaterally. No: Rales, Rhonchi, Wheezes Gastrointestinal: Yes: Normal Bowel Sounds, Soft. No: Distention, Tenderness Extremities: Yes: WNL Edema: Yes Edema: LLE: 2+, RLE: 2+ Labs: CBC, BMP 02/03/17 08:40 02/03/17 08:40 INR, PTT INR 1.04 (0.82-1.09) 01/12/17 14:30 Problem List - Problems (1) Multiple myeloma Code(s): C90.00 - MULTIPLE MYELOMA NOT HAVING ACHIEVED REMISSION Qualifiers: Qualified Code(s): C90.00 - Multiple myeloma not having achieved remission (2) Acute renal failure Code(s): N17.9 - ACUTE KIDNEY FAILURE, UNSPECIFIED Qualifiers: Qualified Code(s): N17.9 - Acute kidney failure, unspecified (3) Hypercalcemia Code(s): E83.52 - HYPERCALCEMIA (4) Metabolic encephalopathy Code(s): G93.41 - METABOLIC ENCEPHALOPATHY (5) Hypocalcemia Code(s): E83.51 - HYPOCALCEMIA (6) Hypomagnesemia Code(s): E83.42 - HYPOMAGNESEMIA (7) Hypophosphatemia Code(s): E83.39 - OTHER DISORDERS OF PHOSPHORUS METABOLISM Assessment/Plan (1) Multiple myeloma Assessment/Plan: -per oncology note holding velcade secondary to diarrhea -defer further treatment and timing to oncology -possible ready for discharge soon Code(s): C90.00 - MULTIPLE MYELOMA NOT HAVING ACHIEVED REMISSION Qualifiers: Multiple myeloma remission status: not in remission Qualified Code(s ): C90.00 - Multiple myeloma not having achieved remission (2) Acute renal failure Assessment/Plan: -resolved Code(s): N17.9 - ACUTE KIDNEY FAILURE, UNSPECIFIED Qualifiers: Acute renal failure type: unspecified Qualified Code(s): N17.9 - Acute kidney failure, unspecified (3) Hypocalcemia Assessment/Plan: -calcium replacement stopped Code(s): E83.52 - HYPERCALCEMIA (4) Metabolic encephalopathy -resolved (5) Anemia -stable (6) FEN -first day electrolytes are normal -case d/w nephrology -if electrolytes are stable, can discharge over the weekend (7) Diarrhea -resolved (8) E coli UTI -levaquin 500mg day 3 Dispo -had long discussion with family and patient about discharge -not a candidate for SNF, planning for home with HHC -patient and family are resistant to plan -is electrolytes stable, patient is safe for discharge home with HHC -patient and family made aware that it could be as early as tomorrow and was given 24 hour notice for possible discharge tomorrow
--- NOTE | 2017-02-03 13:16 | PN ---
Progress Note (short form) - Note Progress Note: Patient seen and examined. Cor: RSR, No murmurs, No gallops Lungs: decreased at bases Abd: Soft, Normal bowel sounds, No organomegaly Ext:2+ edema b/l Temp Pulse Resp BP Pulse Ox 97.7 F 89 20 100/60 95 02/03/17 08:54 02/03/17 08:54 02/03/17 08:54 02/03/17 08:54 02/02/17 21:00 CBC, BMP 02/03/17 08:40 02/03/17 08:40 Current Medications Generic Name Dose Route Start Last Admin Trade Name Freq PRN Reason Stop Dose Admin Acetaminophen 1,000 mg 01/24/17 11:36 01/28/17 03:06 Tylenol - PO 1,000 mg Q6H PRN Administration FEVER OR PAIN Alprazolam 0.25 mg 01/24/17 22:00 01/24/17 21:47 Xanax - PO 0.25 mg TID PRN Administration ANXIETY Enoxaparin Sodium 40 mg 01/30/17 16:30 02/03/17 11:02 Lovenox - SQ 40 mg DAILY [facility] Administration Lactobacillus Acidophilus 1 tab 02/01/17 13:00 02/03/17 11:02 Bacid - PO 1 tab DAILY [facility] Administration Levofloxacin 500 mg 02/01/17 14:45 02/03/17 06:38 Levaquin - PO 500 mg DAILY@0600 [facility] Administration Pantoprazole Sodium 40 mg 01/22/17 10:00 02/03/17 11:02 Protonix - PO Not Given DAILY [facility] A/P 81 y/o patient with Multiple Myeloma IgK with extensive bony disease. Admitted with AMS/Hypercalcemia, now clinically much improved. MRI spine/brain--extensive vertebral /skull mets. frontal skull--epidural lesion.No cord compression also c/o rt. hip pain-- mri pelvis ---extensive bone mets Xrays also show lucent lesions in femurs 4th dose velcade on 01/30 Next week will be on weekly velcade/dex will add revlimid/cytoxan based on clinical course last zometa 01/12 ortho f/u Diarrhea -resolved E. coli UTI-- On Levaquin Lower extremity edema --duplex neg. On lovenox for DVT prophylaxis Lytes and renal failure much improved. Problem List - Problems (1) Acute renal failure Code(s): N17.9 - ACUTE KIDNEY FAILURE, UNSPECIFIED Qualifiers: Qualified Code(s): N17.9 - Acute kidney failure, unspecified (2) Hypercalcemia Code(s): E83.52 - HYPERCALCEMIA (3) Multiple myeloma Code(s): C90.00 - MULTIPLE MYELOMA NOT HAVING ACHIEVED REMISSION Qualifiers: Qualified Code(s): C90.00 - Multiple myeloma not having achieved remission (4) Low back strain Code(s): S39.012A - STRAIN OF MUSCLE, FASCIA AND TENDON OF LOWER BACK, INIT Qualifiers: Qualified Code(s): S39.012A - Strain of muscle, fascia and tendon of lower back, initial encounter
--- NOTE | 2017-02-03 15:17 | PN ---
Progress Note, Physician History of Present Illness: Pt seen and examined at bedside. She is awake and comfortable. - Current Medication List Current Medications: Active Medications Acetaminophen (Tylenol -) 1,000 mg PO Q6H PRN PRN Reason: FEVER OR PAIN Last Admin: 01/28/17 03:06 Dose: 1,000 mg Alprazolam (Xanax -) 0.25 mg PO TID PRN PRN Reason: ANXIETY Last Admin: 01/24/17 21:47 Dose: 0.25 mg Enoxaparin Sodium (Lovenox -) 40 mg SQ DAILY [facility] Last Admin: 02/03/17 11:02 Dose: 40 mg Lactobacillus Acidophilus (Bacid -) 1 tab PO DAILY [facility] Last Admin: 02/03/17 11:02 Dose: 1 tab Levofloxacin (Levaquin -) 500 mg PO DAILY@0600 [facility] Last Admin: 02/03/17 06:38 Dose: 500 mg Pantoprazole Sodium (Protonix -) 40 mg PO DAILY [facility] Last Admin: 02/03/17 11:02 Dose: Not Given - Objective Vital Signs: Vital Signs Temperature 97.6 F 02/03/17 15:01 Pulse Rate 93 H 02/03/17 15:01 Respiratory Rate 18 02/03/17 15:01 Blood Pressure 111/64 02/03/17 15:01 O2 Sat by Pulse Oximetry (%) 95 02/02/17 21:00 Constitutional: Yes: Calm Eyes: Yes: Conjunctiva Clear HENT: Yes: Atraumatic Cardiovascular: Yes: S1, S2 Respiratory: Yes: CTA Bilaterally Gastrointestinal: Yes: Soft Musculoskeletal: Yes: WNL Edema: LLE: Trace, RLE: Trace Neurological: Yes: Oriented Labs: CBC, BMP 02/03/17 08:40 02/03/17 08:40 INR, PTT INR 1.04 (0.82-1.09) 01/12/17 14:30 Problem List - Problems (1) Acute renal failure Code(s): N17.9 - ACUTE KIDNEY FAILURE, UNSPECIFIED Qualifiers: Qualified Code(s): N17.9 - Acute kidney failure, unspecified (2) Hypercalcemia Code(s): E83.52 - HYPERCALCEMIA (3) Multiple myeloma Code(s): C90.00 - MULTIPLE MYELOMA NOT HAVING ACHIEVED REMISSION Qualifiers: Qualified Code(s): C90.00 - Multiple myeloma not having achieved remission Assessment/Plan Current Medications Generic Name Dose Route Start Last Admin Trade Name Freq PRN Reason Stop Dose Admin Acetaminophen 1,000 mg 01/24/17 11:36 01/28/17 03:06 Tylenol - PO 1,000 mg Q6H PRN Administration FEVER OR PAIN Alprazolam 0.25 mg 01/24/17 22:00 01/24/17 21:47 Xanax - PO 0.25 mg TID PRN Administration ANXIETY Enoxaparin Sodium 40 mg 01/30/17 16:30 02/03/17 11:02 Lovenox - SQ 40 mg DAILY [facility] Administration Lactobacillus Acidophilus 1 tab 02/01/17 13:00 02/03/17 11:02 Bacid - PO 1 tab DAILY [facility] Administration Levofloxacin 500 mg 02/01/17 14:45 02/03/17 06:38 Levaquin - PO 500 mg DAILY@0600 [facility] Administration Pantoprazole Sodium 40 mg 01/22/17 10:00 02/03/17 11:02 Protonix - PO Not Given DAILY [facility] Laboratory Tests 02/03/17 08:40 Potassium 3.7 Phosphorus 3.0 D Magnesium 1.8 D Impression 1. Hypercalcemia improving 2. SHANIA 3. anemia 4. hypokalemia 5. multiple myeloma 6. malnutrition 7. failure to thrive Plan - lytes are stable - can stop calcium supplements - monitory cmp - will follow PRN - discussed with primary Dr Soto
[2017-02-04] MEDS: LEVOFLOXACIN 500 MG TABLET (FP) PO SCH (06:25)
[2017-02-04 07:45] LABS: MCH 30.1 pg (25.7-33.7); MCHC 33.8 g/dl (32.0-36.0); MEAN CELL VOLUME 89.1 fl (80-96); MEAN PLT VOLUME 8.3 fl (7.5-11.1); PLATELET COUNT 151 K/MM3 (134-434); WHITE BLOOD COUNT 5.7 K/mm3 (4.0-10.0)
[2017-02-04 07:59] LABS: ANION GAP 10 (8-16); CO2 24 mmol/L (21-32); CREATININE 1.1 mg/dL (0.55-1.02); GLUCOSE,RANDOM 74 mg/dL (74-106); MAGNESIUM 1.8 mg/dL (1.8-2.4); PHOSPHOROUS 3.2 mg/dL (2.5-4.9)
[2017-02-04 10:35] LABS: TOTAL CELLS COUNTED 100
[2017-02-04 10:36] LABS: METAMYELOCYTE 2 % (0-2); MYELOCYTE 2 % (0-2)
[2017-02-04] MEDS: ENOXAPARIN NA (PORCINE) 40 MG/0.4 ML DISP.SYRIN SQ SCH (11:00)
[2017-02-04] MEDS: LACTOBACILLUS ACIDOPHILUS 1 EACH TAB (FP) PO SCH (11:00)
--- NOTE | 2017-02-04 11:31 | PN ---
Physical Exam: SUBJECTIVE: Patient seen and examined oob to chair. She had formed dark stool today. Daughter states her PO intake is low. OBJECTIVE: Vital Signs Period Temp Pulse Resp BP Sys/Saucedo Pulse Ox Last 24 Hr 97.5 F-98.5 F 89-96 18-20 97-117/56-71 97 PE Neuro: alert, awake, cn 2-12intact Pulm: CTAB CV: s1 s2 rrr no mrg Abd: s nt nd + bs Ext: +2 bilateral edema, warm le Laboratory Results - last 24 hr 02/04/17 02/04/17 06:00 06:00 WBC 5.7 RBC 2.76 L Hgb 8.3 L Hct 24.6 L MCV 89.1 MCH 30.1 MCHC 33.8 RDW 19.0 H Plt Count 151 MPV 8.3 Total Counted 100 Neutrophils % Y Neutrophils % (Manual) 53 D Lymphocytes % Y Lymphocytes % (Manual) 35 D Monocytes % (Manual) 7 Eosinophils % (Manual) 1 Myelocytes % (Man) 2 D Sodium 144 Potassium 3.9 Chloride 110 H Carbon Dioxide 24 Anion Gap 10 BUN 15 D Creatinine 1.1 H D Random Glucose 74 Calcium 8.0 L Phosphorus 3.2 Magnesium 1.8 Active Medications Generic Name Dose Route Start Last Admin Trade Name Freq PRN Reason Stop Dose Admin Acetaminophen 1,000 mg 01/24/17 11:36 01/28/17 03:06 Tylenol - PO 1,000 mg Q6H PRN Administration FEVER OR PAIN Alprazolam 0.25 mg 01/24/17 22:00 01/24/17 21:47 Xanax - PO 0.25 mg TID PRN Administration ANXIETY Enoxaparin Sodium 40 mg 01/30/17 16:30 02/03/17 11:02 Lovenox - SQ 40 mg DAILY [facility] Administration Lactobacillus Acidophilus 1 tab 02/01/17 13:00 02/03/17 11:02 Bacid - PO 1 tab DAILY [facility] Administration Levofloxacin 500 mg 02/01/17 14:45 02/04/17 06:25 Levaquin - PO 500 mg DAILY@0600 [facility] Administration Pantoprazole Sodium 40 mg 01/22/17 10:00 02/03/17 11:02 Protonix - PO Not Given DAILY [facility] Assessment: 81 year old female with Multiple Myeloma IgK with extensive bony disease admitted with AMS/Hypercalcemia. Plan: 1. Multiple myeloma - Per oncology note holding velcade secondary to diarrhea - Defer further treatment and timing to oncology 2. Acute renal failure - Cr increase today - Encourage PO intake - Trend bmp 3. E coli UTI - Levaquin 500mg day 4 4. Hypocalcemia - Calcium replacement stopped 02/03 5. Metabolic encephalopathy - Resolved 6. Anemia - Stable 7. FEN - Electrolytes wnl today 8. Diarrhea - Resolved Dispo - Not a candidate for SNF, planning for home with [facility] - Patient and family are resistant to plan - If electrolytes stable, patient is safe for discharge home with [facility] Visit type - Emergency Visit Emergency Visit: Yes ED Registration Date: 01/12/17 Care time: The patient presented to the Emergency Department on the above date and was hospitalized for further evaluation of their emergent condition. - New Patient This patient is new to me today: Yes Date on this admission: 02/04/17 - Critical Care Critical Care patient: No
--- NOTE | 2017-02-04 11:39 | PN ---
Progress Note (short form) - Note Progress Note: Progress Note (short form) - Note Progress Note: Seen in follow up. Overall doing better. Trying to eat, but appetite poor. Normal bowel movement overnight. Meds reviewed. Current Medications Generic Name Dose Route Start Last Admin Trade Name Freq PRN Reason Stop Dose Admin Acetaminophen 1,000 mg 01/24/17 11:36 01/28/17 03:06 Tylenol - PO 1,000 mg Q6H PRN Administration FEVER OR PAIN Alprazolam 0.25 mg 01/24/17 22:00 01/24/17 21:47 Xanax - PO 0.25 mg TID PRN Administration ANXIETY Enoxaparin Sodium 40 mg 01/30/17 16:30 02/03/17 11:02 Lovenox - SQ 40 mg DAILY [facility] Administration Lactobacillus Acidophilus 1 tab 02/01/17 13:00 02/03/17 11:02 Bacid - PO 1 tab DAILY [facility] Administration Levofloxacin 500 mg 02/01/17 14:45 02/04/17 06:25 Levaquin - PO 500 mg DAILY@0600 [facility] Administration Pantoprazole Sodium 40 mg 01/22/17 10:00 02/03/17 11:02 Protonix - PO Not Given DAILY [facility] On exam: Last Vital Signs Temp Pulse Resp BP Pulse Ox 97.6 F 89 18 108/71 97 02/04/17 08:53 02/04/17 08:53 02/04/17 08:53 02/04/17 08:53 02/03/17 21:00 General: Comfortable, sitting in chair, dry mucosa. Extremities: Pallor, no icterus. Chest:normal AE bilaterally, clear.. Abdomen: Soft, no organomegaly, no masses. Neuro: Alert, oriented, non-focal. CVS: Normal sinus rhythm, S1, S2, no gallop or murmur. CBC, BMP 02/04/17 06:00 02/04/17 06:00 Assessment. Myeloma - presently with pancytopenia, recently started on Velcade/DEX, last dose 01/30 Presently with; Failure to thrive, hypoalbuminemia. Nutrition encouraged. Hypocalcemia - normal ionized calcium. Bump in creatinine noted today - increase po hydration encouraged today. Positive urine culture (E. coli 01/31) - on oral Abic - no clinical evidence of sepsis.
[2017-02-04] MEDS: PANTOPRAZOLE 40 MG TABLET (FP) PO SCH (11:59)
[2017-02-05] MEDS: LEVOFLOXACIN 500 MG TABLET (FP) PO SCH (06:41)
[2017-02-05 07:27] LABS: MCH 30.1 pg (25.7-33.7); MCHC 33.6 g/dl (32.0-36.0); MEAN CELL VOLUME 89.7 fl (80-96); MEAN PLT VOLUME 8.1 fl (7.5-11.1); PLATELET COUNT 145 K/MM3 (134-434); RDW 18.9 % (11.6-15.6); WHITE BLOOD COUNT 6.2 K/mm3 (4.0-10.0)
[2017-02-05 07:51] LABS: ALBUMIN 2.2 g/dl (3.4-5.0); ALK PHOS 86 U/L (45-117); ANION GAP 9 (8-16); BILIRUBIN,TOTAL 0.3 mg/dL (0.2-1.0); CALCIUM 7.6 mg/dL (8.5-10.1); CO2 25 mmol/L (21-32); CREATININE 1.1 mg/dL (0.55-1.02); GLUCOSE,RANDOM 72 mg/dL (74-106); MAGNESIUM 1.9 mg/dL (1.8-2.4); PHOSPHOROUS 2.9 mg/dL (2.5-4.9); SGOT/AST 31 U/L (15-37); SGPT/ALT 20 U/L (12-78); TOT PROT 5.3 g/dl (6.4-8.2)
[2017-02-05] MEDS: ENOXAPARIN NA (PORCINE) 40 MG/0.4 ML DISP.SYRIN SQ SCH (09:47)
[2017-02-05] MEDS: PANTOPRAZOLE 40 MG TABLET (FP) PO SCH (09:47)
[2017-02-05] MEDS: LACTOBACILLUS ACIDOPHILUS 1 EACH TAB (FP) PO SCH (09:47)
--- NOTE | 2017-02-05 11:09 | PN ---
Progress Note (short form) - Note Progress Note: Progress Note (short form) - Note Progress Note: Seen in follow up. Overall doing better. Trying to eat, but appetite poor. Meds reviewed. Current Medications Generic Name Dose Route Start Last Admin Trade Name Freq PRN Reason Stop Dose Admin Acetaminophen 1,000 mg 01/24/17 11:36 01/28/17 03:06 Tylenol - PO 1,000 mg Q6H PRN Administration FEVER OR PAIN Alprazolam 0.25 mg 01/24/17 22:00 01/24/17 21:47 Xanax - PO 0.25 mg TID PRN Administration ANXIETY Enoxaparin Sodium 40 mg 01/30/17 16:30 02/05/17 09:47 Lovenox - SQ 40 mg DAILY TOMÁS Administration Lactobacillus Acidophilus 1 tab 02/01/17 13:00 02/05/17 09:47 Bacid - PO 1 tab DAILY TOMÁS Administration Levofloxacin 500 mg 02/01/17 14:45 02/05/17 06:41 Levaquin - PO 500 mg DAILY@0600 TOMÁS Administration Pantoprazole Sodium 40 mg 01/22/17 10:00 02/05/17 09:47 Protonix - PO Not Given DAILY TOMÁS On exam: Last Vital Signs Temp Pulse Resp BP Pulse Ox 98.2 F 94 H 18 103/62 95 02/05/17 10:00 02/05/17 10:00 02/05/17 10:00 02/05/17 10:00 02/04/17 21:00 General: Comfortable, sitting in chair. Extremities: Pallor, no icterus. Chest:normal AE bilaterally, clear.. Abdomen: Soft, no organomegaly, no masses. Neuro: Alert, oriented, non-focal. CVS: Normal sinus rhythm, S1, S2, no gallop or murmur. Assessment. Myeloma - presently with pancytopenia, recently started on Velcade/DEX, last dose 01/30 Presently with; Failure to thrive, hypoalbuminemia. Nutrition encouraged. Hypocalcemia - normal ionized calcium. Bump in creatinine noted yesterday - increase po hydration encouraged - creatinine stable today. Monitor. Positive urine culture (E. coli 01/31) - on oral Abic - no clinical evidence of sepsis.
--- NOTE | 2017-02-05 17:27 | PN ---
Physical Exam: SUBJECTIVE: Patient seen and examined oob to chair. Complaining of right hip pain which occurs with movement, no pain when lying in bed at rest. OBJECTIVE: Vital Signs Period Temp Pulse Resp BP Sys/Saucedo Pulse Ox Last 24 Hr 97.6 F-98.4 F 90-95 18-20 90-103/58-62 94-95 GENERAL: The patient is awake, alert, and fully oriented, in no acute distress. HEAD: Normal with no signs of trauma. EYES: PERRL, extraocular movements intact, sclera anicteric, conjunctiva clear. No ptosis. LUNGS: Breath sounds equal, clear to auscultation bilaterally, no wheezes, no crackles, no accessory muscle use. HEART: Regular rate and rhythm, S1, S2 without murmur, rub or gallop. ABDOMEN: Soft, nontender, nondistended, normoactive bowel sounds, no guarding, no rebound, no hepatosplenomegaly, no masses. EXTREMITIES: 2+ bilateral lower extremity edema NEUROLOGICAL: Cranial nerves II through XII grossly intact. Normal speech, gait not observed. Laboratory Results - last 24 hr 02/05/17 02/05/17 06:00 06:00 WBC 6.2 RBC 2.63 L Hgb 7.9 L Hct 23.6 L MCV 89.7 MCH 30.1 MCHC 33.6 RDW 18.9 H Plt Count 145 MPV 8.1 Sodium 146 H Potassium 3.8 Chloride 112 H Carbon Dioxide 25 Anion Gap 9 BUN 18 Creatinine 1.1 H Creat Clearance w eGFR 47.55 Random Glucose 72 L Calcium 7.6 L Phosphorus 2.9 Magnesium 1.9 Total Bilirubin 0.3 D AST 31 D ALT 20 D Alkaline Phosphatase 86 Total Protein 5.3 L Albumin 2.2 L Active Medications Generic Name Dose Route Start Last Admin Trade Name Freq PRN Reason Stop Dose Admin Acetaminophen 1,000 mg 01/24/17 11:36 01/28/17 03:06 Tylenol - PO 1,000 mg Q6H PRN Administration FEVER OR PAIN Enoxaparin Sodium 40 mg 01/30/17 16:30 02/05/17 09:47 Lovenox - SQ 40 mg DAILY TOMÁS Administration Lactobacillus Acidophilus 1 tab 02/01/17 13:00 02/05/17 09:47 Bacid - PO 1 tab DAILY TOMÁS Administration Levofloxacin 500 mg 02/01/17 14:45 02/05/17 06:41 Levaquin - PO 500 mg DAILY@0600 TOMÁS Administration Pantoprazole Sodium 40 mg 01/22/17 10:00 02/05/17 09:47 Protonix - PO Not Given DAILY [facility] ASSESSMENT/PLAN: 81 year old female with multiple myeloma and extensive bony disease, admitted for altered mental status and hypercalcemia. 1. Multiple myeloma Recently started on Velcade/DEX, last dose 01/30 2. Acute renal failure - Cr bump from 0.5-->1.1 - Encourage PO intake - Trend bmp 3. E coli UTI - Levaquin 500mg day 5 4. Hypocalcemia - Calcium replacement stopped 02/03 5. Metabolic encephalopathy - Resolved 6. Anemia - Hgb 7.9, continue to trend 7. Diarrhea - Resolved DVT prophylaxis: lovenox Visit type - Emergency Visit Emergency Visit: Yes ED Registration Date: 01/12/17 Care time: The patient presented to the Emergency Department on the above date and was hospitalized for further evaluation of their emergent condition. - New Patient This patient is new to me today: Yes Date on this admission: 02/05/17 - Critical Care Critical Care patient: No Total Critical Care Time (in minutes): 35 Critical Care Statement: The care of this patient involved high complexity decision making to prevent further life threatening deterioration of the patient 's condition and/or to evaluate & treat vital organ system(s) failure or risk of failure.
[2017-02-06] MEDS: LEVOFLOXACIN 500 MG TABLET (FP) PO SCH (07:10)
[2017-02-06] MEDS: LACTOBACILLUS ACIDOPHILUS 1 EACH TAB (FP) PO SCH (10:20)
[2017-02-06] MEDS: ENOXAPARIN NA (PORCINE) 40 MG/0.4 ML DISP.SYRIN SQ SCH (10:23)
[2017-02-06] MEDS: PANTOPRAZOLE 40 MG TABLET (FP) PO SCH (10:24)
--- NOTE | 2017-02-06 14:10 | PN ---
Progress Note (short form) - Note Progress Note: Patient seen and examined alert, Last Vital Signs Temp Pulse Resp BP Pulse Ox 98 F 95 H 16 99/56 94 L 02/06/17 10:00 02/06/17 10:00 02/06/17 10:00 02/06/17 10:00 02/05/17 21:00 Cor: RSR, No murmurs, No gallops Lungs: decreased at bases Abd: Soft, Normal bowel sounds, No organomegaly Ext:2+ edema b/l Active Medications Generic Name Dose Route Start Last Admin Trade Name Freq PRN Reason Stop Dose Admin Acetaminophen 1,000 mg 01/24/17 11:36 01/28/17 03:06 Tylenol - PO 1,000 mg Q6H PRN Administration FEVER OR PAIN Enoxaparin Sodium 40 mg 01/30/17 16:30 02/06/17 10:23 Lovenox - SQ 40 mg DAILY TOMÁS Administration Lactobacillus Acidophilus 1 tab 02/01/17 13:00 02/06/17 10:20 Bacid - PO 1 tab DAILY TOMÁS Administration Pantoprazole Sodium 40 mg 01/22/17 10:00 02/06/17 10:24 Protonix - PO Not Given DAILY TOMÁS A/P 81 y/o patient with Multiple Myeloma PRESENTED WITH Hypercalcemia Altered Mental status SHANIA Bone pains clinically improved 5th dose velcade -- TODAY On weekly velcade/dex will add revlimid/cytoxan based on clinical course last zometa 01/12 Tolerating well overall MRI spine/brain--extensive vertebral /skull mets. frontal skull--epidural lesion.No cord compression also c/o rt. hip pain-- mri pelvis ---extensive bone mets Xrays also show lucent lesions in femurs ortho f/u neuro f/u diarrhea Rectal thickening noted on MRI--c.diff neg. neutraphos held off improving E. coli UTI-- S/P Levaquin Lower extremity edema --duplex neg. Thrombocytopenia: HITneg. stable On lovenox for DVT prophy;laxis D/C PLANNING f/U CONTACT NOS. GIVEN discussed at [facility] with patients daughters and patient
[2017-02-06] MEDS ORDERED: SODIUM CHLORIDE 1,000 ML IV SCH (14:30)
[2017-02-06] MEDS ORDERED: DEXAMETHASONE 4 MG TABLET (FP) PO ONE (15:00)
--- NOTE | 2017-02-06 15:01 | PN ---
Progress Note, Physician Chief Complaint: Patient denies cp, sob, n/v. swelling improved. - Current Medication List Current Medications: Active Medications Acetaminophen (Tylenol -) 1,000 mg PO Q6H PRN PRN Reason: FEVER OR PAIN Last Admin: 01/28/17 03:06 Dose: 1,000 mg Bortezomib (Velcade) 1.75 mg SQ ONCE ONE Stop: 02/06/17 15:31 Enoxaparin Sodium (Lovenox -) 40 mg SQ DAILY [facility] Last Admin: 02/06/17 10:23 Dose: 40 mg Sodium Chloride (Normal Saline -) 1,000 mls @ 50 mls/hr IV ASDIR [facility] Stop: 02/07/17 14:18 Lactobacillus Acidophilus (Bacid -) 1 tab PO DAILY [facility] Last Admin: 02/06/17 10:20 Dose: 1 tab Pantoprazole Sodium (Protonix -) 40 mg PO DAILY [facility] Last Admin: 02/06/17 10:24 Dose: Not Given - Objective Vital Signs: Vital Signs Temperature 36.6 C 02/06/17 14:45 Pulse Rate 86 02/06/17 14:45 Respiratory Rate 18 02/06/17 14:45 Blood Pressure 95/54 02/06/17 14:45 O2 Sat by Pulse Oximetry (%) 94 L 02/05/17 21:00 Constitutional: Yes: Well Nourished, No Distress, Calm Cardiovascular: Yes: Regular Rate and Rhythm. No: Gallop, Murmur, Rub Respiratory: Yes: Regular, CTA Bilaterally. No: Rales, Rhonchi, Wheezes Gastrointestinal: Yes: Normal Bowel Sounds, Soft. No: Distention, Tenderness Extremities: Yes: WNL Edema: Yes Edema: LLE: 1+, RLE: 1+ Labs: CBC, BMP 02/05/17 06:00 02/05/17 06:00 INR, PTT INR 1.04 (0.82-1.09) 01/12/17 14:30 Problem List - Problems (1) Multiple myeloma Code(s): C90.00 - MULTIPLE MYELOMA NOT HAVING ACHIEVED REMISSION Qualifiers: Qualified Code(s): C90.00 - Multiple myeloma not having achieved remission (2) Acute renal failure Code(s): N17.9 - ACUTE KIDNEY FAILURE, UNSPECIFIED Qualifiers: Qualified Code(s): N17.9 - Acute kidney failure, unspecified (3) Hypercalcemia Code(s): E83.52 - HYPERCALCEMIA (4) Metabolic encephalopathy Code(s): G93.41 - METABOLIC ENCEPHALOPATHY (5) Hypocalcemia Code(s): E83.51 - HYPOCALCEMIA (6) Hypomagnesemia Code(s): E83.42 - HYPOMAGNESEMIA (7) Hypophosphatemia Code(s): E83.39 - OTHER DISORDERS OF PHOSPHORUS METABOLISM Assessment/Plan (1) Multiple myeloma Assessment/Plan: -receiving velcade and dexamethasone today Code(s): C90.00 - MULTIPLE MYELOMA NOT HAVING ACHIEVED REMISSION Qualifiers: Multiple myeloma remission status: not in remission Qualified Code(s ): C90.00 - Multiple myeloma not having achieved remission (2) Acute renal failure Assessment/Plan: -resolved Code(s): N17.9 - ACUTE KIDNEY FAILURE, UNSPECIFIED Qualifiers: Acute renal failure type: unspecified Qualified Code(s): N17.9 - Acute kidney failure, unspecified (3) Hypocalcemia Assessment/Plan: -calcium replacement stopped Code(s): E83.52 - HYPERCALCEMIA (4) Metabolic encephalopathy -resolved (5) Anemia -stable (6) FEN -electrolytes stable -recheck again tomorrow -plan for discharge if stable (7) Diarrhea -resolved (8) E coli UTI -finished full course of levaquin (9) SHANIA -encourage oral hydration -recheck in am -if stable or improved, outpatient follow up
[2017-02-06] MEDS ORDERED: BORTEZOMIB (VELCADE) 2.5 MG/ML SUB-Q INJECTION SQ ONE (15:30)
[2017-02-07 00:06] LABS: A/G RATIO 0.9 (0.7-1.7); ALBUMIN 2.4 g/dL (2.9-4.4); ALPHA-1-GLOBULIN 0.3 g/dL (0.0-0.4); BETA GLOBULIN 0.6 g/dL (0.7-1.3); GAMMA GLOBULIN 1.2 g/dL (0.4-1.8); GLOBULIN, TOTAL 2.9 g/dL (2.2-3.9); M-SPIKE 0.9 g/dL (Not Observed); TOTAL PROTEIN 5.3 g/dL (6.0-8.5)
[2017-02-07 07:13] LABS: MCHC 33.3 g/dl (32.0-36.0); MEAN PLT VOLUME 8.3 fl (7.5-11.1); PLATELET COUNT 142 K/MM3 (134-434); RDW 19.2 % (11.6-15.6); WHITE BLOOD COUNT 8.9 K/mm3 (4.0-10.0)
[2017-02-07 07:39] LABS: ALBUMIN 2.3 g/dl (3.4-5.0); ANION GAP 6 (8-16); CO2 27 mmol/L (21-32); GLUCOSE,RANDOM 112 mg/dL (74-106); MAGNESIUM 1.9 mg/dL (1.8-2.4)
[2017-02-07 07:42] LABS: ALK PHOS 81 U/L (45-117); BILIRUBIN,TOTAL 0.2 mg/dL (0.2-1.0); CREATININE 1.2 mg/dL (0.55-1.02); PHOSPHOROUS 3.2 mg/dL (2.5-4.9); SGOT/AST 47 U/L (15-37); SGPT/ALT 20 U/L (12-78); TOT PROT 5.6 g/dl (6.4-8.2)
[2017-02-07 08:10] LABS: METAMYELOCYTE 3 % (0-2); MYELOCYTE 1 % (0-2); TOTAL CELLS COUNTED 100
[2017-02-07] MEDS: LACTOBACILLUS ACIDOPHILUS 1 EACH TAB (FP) PO SCH (09:25)
[2017-02-07] MEDS: PANTOPRAZOLE 40 MG TABLET (FP) PO SCH (09:25)
--- NOTE | 2017-02-07 10:54 | PN ---
Progress Note, Physician Chief Complaint: Patient denies cp, sob, n/v. swelling improved. - Current Medication List Current Medications: Active Medications Acetaminophen (Tylenol -) 1,000 mg PO Q6H PRN PRN Reason: FEVER OR PAIN Last Admin: 01/28/17 03:06 Dose: 1,000 mg Sodium Chloride (Normal Saline -) 1,000 mls @ 50 mls/hr IV ASDIR TOMÁS Stop: 02/07/17 14:18 Last Admin: 02/06/17 15:15 Dose: 50 mls/hr Lactobacillus Acidophilus (Bacid -) 1 tab PO DAILY TOMÁS Last Admin: 02/07/17 09:25 Dose: 1 tab Pantoprazole Sodium (Protonix -) 40 mg PO DAILY TOM[facility]S Last Admin: 02/07/17 09:25 Dose: Not Given - Objective Vital Signs: Vital Signs Temperature 36.8 C 02/07/17 08:00 Pulse Rate 82 02/07/17 08:00 Respiratory Rate 18 02/07/17 08:00 Blood Pressure 104/65 02/07/17 08:00 O2 Sat by Pulse Oximetry (%) 97 02/07/17 08:32 Constitutional: Yes: Well Nourished, No Distress, Calm Cardiovascular: Yes: Regular Rate and Rhythm. No: Gallop, Murmur, Rub Respiratory: Yes: Regular, CTA Bilaterally. No: Rales, Rhonchi, Wheezes Gastrointestinal: Yes: Normal Bowel Sounds, Soft. No: Distention, Tenderness Extremities: Yes: WNL Edema: Yes Edema: LLE: 1+, RLE: 1+ Labs: CBC, BMP 02/07/17 06:00 02/07/17 06:00 INR, PTT INR 1.04 (0.82-1.09) 01/12/17 14:30 Problem List - Problems (1) Multiple myeloma Code(s): C90.00 - MULTIPLE MYELOMA NOT HAVING ACHIEVED REMISSION Qualifiers: Qualified Code(s): C90.00 - Multiple myeloma not having achieved remission (2) Acute renal failure Code(s): N17.9 - ACUTE KIDNEY FAILURE, UNSPECIFIED Qualifiers: Qualified Code(s): N17.9 - Acute kidney failure, unspecified (3) Hypercalcemia Code(s): E83.52 - HYPERCALCEMIA (4) Metabolic encephalopathy Code(s): G93.41 - METABOLIC ENCEPHALOPATHY (5) Hypocalcemia Code(s): E83.51 - HYPOCALCEMIA (6) Hypomagnesemia Code(s): E83.42 - HYPOMAGNESEMIA (7) Hypophosphatemia Code(s): E83.39 - OTHER DISORDERS OF PHOSPHORUS METABOLISM Assessment/Plan (1) Multiple myeloma Assessment/Plan: -received velcade and dexamethasone -can continue care as an outpatient Code(s): C90.00 - MULTIPLE MYELOMA NOT HAVING ACHIEVED REMISSION Qualifiers: Multiple myeloma remission status: not in remission Qualified Code(s ): C90.00 - Multiple myeloma not having achieved remission (2) Acute renal failure Assessment/Plan: -slightly worsened -transfusion -gentle hydration Code(s): N17.9 - ACUTE KIDNEY FAILURE, UNSPECIFIED Qualifiers: Acute renal failure type: unspecified Qualified Code(s): N17.9 - Acute kidney failure, unspecified (3) Hypocalcemia Assessment/Plan: -calcium replacement stopped Code(s): E83.52 - HYPERCALCEMIA (4) Metabolic encephalopathy -resolved (5) Anemia -transfuse today (6) FEN -electrolytes stable (7) Diarrhea -resolved (8) E coli UTI -finished full course of levaquin Dispo -plan for discharge tomorrow
--- NOTE | 2017-02-07 11:12 | PN ---
Progress Note (short form) - Note Progress Note: Patient seen and examined alert, sitting in chair. Cor: RSR, No murmurs, No gallops Lungs: CTA b/l Abd: Soft, Normal bowel sounds, No organomegaly Ext:much improved when compared to prior. mild edema noted Last Vital Signs Temp Pulse Resp BP Pulse Ox 98.2 F 82 18 104/65 97 02/07/17 08:00 02/07/17 08:00 02/07/17 08:00 02/07/17 08:00 02/07/17 08:32 CBC, BMP 02/07/17 06:00 02/07/17 06:00 Current Medications Generic Name Dose Route Start Last Admin Trade Name Freq PRN Reason Stop Dose Admin Acetaminophen 1,000 mg 01/24/17 11:36 01/28/17 03:06 Tylenol - PO 1,000 mg Q6H PRN Administration FEVER OR PAIN Sodium Chloride 1,000 mls @ 50 mls/hr 02/06/17 14:30 02/06/17 15:15 Normal Saline - IV 02/07/17 14:18 50 mls/hr ASDIR TOMÁS Administration Lactobacillus Acidophilus 1 tab 02/01/17 13:00 02/07/17 09:25 Bacid - PO 1 tab DAILY TOMÁS Administration Pantoprazole Sodium 40 mg 01/22/17 10:00 02/07/17 09:25 Protonix - PO Not Given DAILY TOMÁS Assessment/Plan: 81 y/o patient with Multiple Myeloma PRESENTED WITH Hypercalcemia Altered Mental status SHANIA Bone pains clinically much improved 5th dose velcade on 02/06 On weekly velcade/dex will add revlimid/cytoxan based on clinical course, discussed about this again to the daughters last zometa 01/12.Tolerating well overall. Today with Hgb of 7.6 and Cr of 1.2 One unit of PRBC today c/w IVF Bladder scan Chemo likely cause of low hgb Renal fn : ? poor po intake/vol depletion/retaining/myeloma itself continue to monitor Likely will improve , will f.u on tomorrow CBC and Chem MRI spine/brain--extensive vertebral /skull mets. frontal skull--epidural lesion.No cord compression also c/o rt. hip pain-- mri pelvis ---extensive bone mets Xrays also show lucent lesions in femurs ortho f/u neuro f/u diarrhea: resolved E. coli UTI-- S/P Levaquin Lower extremity edema --duplex neg. Thrombocytopenia: resolved, will continue to monitor On lovenox for DVT prophylaxis anticipating dc in a day or two will followup in the office closely, daughters aware The above was discussed in detail with two daughters at bedside. They are aware. Problem List - Problems (1) Acute renal failure Code(s): N17.9 - ACUTE KIDNEY FAILURE, UNSPECIFIED Qualifiers: Qualified Code(s): N17.9 - Acute kidney failure, unspecified (2) Hypercalcemia Code(s): E83.52 - HYPERCALCEMIA (3) Multiple myeloma Code(s): C90.00 - MULTIPLE MYELOMA NOT HAVING ACHIEVED REMISSION Qualifiers: Qualified Code(s): C90.00 - Multiple myeloma not having achieved remission (4) Low back strain Code(s): S39.012A - STRAIN OF MUSCLE, FASCIA AND TENDON OF LOWER BACK, INIT Qualifiers: Qualified Code(s): S39.012A - Strain of muscle, fascia and tendon of lower back, initial encounter
--- NOTE | 2017-02-07 14:24 | PN ---
Progress Note, Physician History of Present Illness: Pt seen and examined at bedside. She is out of bed to chair. She still has poor PO intake. Her creatinine is rising. - Current Medication List Current Medications: Active Medications Acetaminophen (Tylenol -) 1,000 mg PO Q6H PRN PRN Reason: FEVER OR PAIN Last Admin: 01/28/17 03:06 Dose: 1,000 mg Lactobacillus Acidophilus (Bacid -) 1 tab PO DAILY [facility] Last Admin: 02/07/17 09:25 Dose: 1 tab Pantoprazole Sodium (Protonix -) 40 mg PO DAILY [facility] Last Admin: 02/07/17 09:25 Dose: Not Given - Objective Vital Signs: Vital Signs Temperature 98.2 F 02/07/17 08:00 Pulse Rate 82 02/07/17 08:00 Respiratory Rate 18 02/07/17 08:00 Blood Pressure 104/65 02/07/17 08:00 O2 Sat by Pulse Oximetry (%) 97 02/07/17 08:32 Constitutional: Yes: Calm Eyes: Yes: Conjunctiva Clear HENT: Yes: Atraumatic Neck: Yes: Supple Cardiovascular: Yes: S1, S2 Respiratory: Yes: CTA Bilaterally Gastrointestinal: Yes: Soft Genitourinary: Yes: WNL Musculoskeletal: Yes: WNL Edema: Yes Edema: LLE: Trace, RLE: Trace Neurological: Yes: Oriented Psychiatric: Yes: Oriented Labs: CBC, BMP 02/07/17 06:00 02/07/17 06:00 INR, PTT INR 1.04 (0.82-1.09) 01/12/17 14:30 Problem List - Problems (1) Acute renal failure Code(s): N17.9 - ACUTE KIDNEY FAILURE, UNSPECIFIED Qualifiers: Qualified Code(s): N17.9 - Acute kidney failure, unspecified (2) Hypercalcemia Code(s): E83.52 - HYPERCALCEMIA (3) Multiple myeloma Code(s): C90.00 - MULTIPLE MYELOMA NOT HAVING ACHIEVED REMISSION Qualifiers: Qualified Code(s): C90.00 - Multiple myeloma not having achieved remission Assessment/Plan Current Medications Generic Name Dose Route Start Last Admin Trade Name Freq PRN Reason Stop Dose Admin Acetaminophen 1,000 mg 01/24/17 11:36 01/28/17 03:06 Tylenol - PO 1,000 mg Q6H PRN Administration FEVER OR PAIN Lactobacillus Acidophilus 1 tab 02/01/17 13:00 02/07/17 09:25 Bacid - PO 1 tab DAILY TOMÁS Administration Pantoprazole Sodium 40 mg 01/22/17 10:00 02/07/17 09:25 Protonix - PO Not Given DAILY TOMÁS Impression 1. Hypercalcemia improving 2. SHANIA 3. anemia 4. hypokalemia 5. multiple myeloma 6. malnutrition 7. failure to thrive Plan - zamora fluids to 1/2 ns and decrease rate - repeat bmp in am - encourage PO intake - pt getting a prbc transfusion today - will follow PRN - discussed with primary Dr Soto
[2017-02-07] MEDS: POTASSIUM CHLORIDE 10 MEQ in SODIUM CHLORIDE 0.45% 1,000 ML IVPB SCH (18:28)
--- NOTE | 2017-02-08 02:05 | HOSP ---
Subjective - Review of Symptoms Events since last encounter: Paged by RN. Patient complaining of abdominal pain. Patient states she has had 10 hrs of abdominal pain after eating a salmon sandwich cooked by her daughter. She states the pain is epigastric, nonradiating, 10/10, constant. Patient endorses multiple loose bowel movements, nonbloody. Patient denied tylenol by nurse. Daughter gave patient medical marijuana ( cannibas oil) prior to evaluation. Gastrointestinal: Yes: Abdominal Pain, Diarrhea Physical Examination Vital Signs: Vital Signs Temperature 97.7 F 02/07/17 22:00 Pulse Rate 87 02/07/17 22:00 Respiratory Rate 20 02/07/17 22:00 Blood Pressure 108/63 02/07/17 22:00 O2 Sat by Pulse Oximetry (%) 97 02/07/17 08:32 Gastrointestinal: Yes: Normal Bowel Sounds, Soft, Tenderness, Epigastrium, Other (Tympanic to percussion over epigastrium) Labs: CBC, BMP 02/07/17 06:00 02/07/17 06:00 Hospitalist Encounter Assessment: 81 y.o. F admitted for multiple myeloma and acute renal failure complaining of abdominal pain -Abdominal X-ray ordered, pending nighthawk read -Will re-evaluate throughout the night -Tylenol ordered, patient refusig Visit type - Emergency Visit Emergency Visit: Yes ED Registration Date: 01/12/17 Care time: The patient presented to the Emergency Department on the above date and was hospitalized for further evaluation of their emergent condition. - New Patient This patient is new to me today: Yes Date on this admission: 02/09/17 - Critical Care Critical Care patient: No
[2017-02-08 08:07] LABS: MCH 30.3 pg (25.7-33.7); MCHC 34.1 g/dl (32.0-36.0); MEAN CELL VOLUME 88.9 fl (80-96); MEAN PLT VOLUME 8.1 fl (7.5-11.1); PLATELET COUNT 165 K/MM3 (134-434); RDW 17.6 % (11.6-15.6); WHITE BLOOD COUNT 11.1 K/mm3 (4.0-10.0)
[2017-02-08 08:23] LABS: ALBUMIN 2.5 g/dl (3.4-5.0); ALK PHOS 78 U/L (45-117); ANION GAP 12 (8-16); BILIRUBIN,TOTAL 0.8 mg/dL (0.2-1.0); CO2 22 mmol/L (21-32); CREATININE 0.9 mg/dL (0.55-1.02); GLUCOSE,RANDOM 85 mg/dL (74-106); MAGNESIUM 1.9 mg/dL (1.8-2.4); PHOSPHOROUS 3.5 mg/dL (2.5-4.9); SGOT/AST 42 U/L (15-37); SGPT/ALT 18 U/L (12-78); TOT PROT 5.4 g/dl (6.4-8.2)
[2017-02-08 08:48] LABS: CALCIUM 6.7 mg/dL (8.5-10.1)
[2017-02-08] MEDS: LACTOBACILLUS ACIDOPHILUS 1 EACH TAB (FP) PO SCH (09:27)
[2017-02-08] MEDS: PANTOPRAZOLE 40 MG TABLET (FP) PO SCH (09:27)
[2017-02-08 11:24] LABS: TOTAL CELLS COUNTED 100
[2017-02-08] MEDS: CALCIUM 500MG/VIT-D 200 UNITS COMBO TABLET (FP) PO SCH (11:24)
[2017-02-08 11:25] LABS: METAMYELOCYTE 2 % (0-2)
--- NOTE | 2017-02-08 12:06 | PN ---
Progress Note (short form) - Note Progress Note: Ortho Pt seen and examined- no c/o of hip/leg pain PE- WNL, nvi xrays show lytic lesions in b/l femur a/p as pt is not having pain and lesions are not destructing cortex will observe NTD If pt develops pain and inability to ambulate then would recommend prophylactic osman d/w Dr. Hurt
[2017-02-08] MEDS ORDERED: VANCOMYCIN 250 MG/5 ML ORAL SOLUTION PO SCH (13:15)
--- NOTE | 2017-02-08 14:28 | PN ---
Progress Note, Physician Chief Complaint: Patient denies cp, sob, n/v. Had some abdominal pain with diarrhea after eating salmon last night - Current Medication List Current Medications: Active Medications Acetaminophen (Tylenol -) 1,000 mg PO Q6H PRN PRN Reason: FEVER OR PAIN Last Admin: 01/28/17 03:06 Dose: 1,000 mg Calcium Carbonate/Cholecalciferol (Os-Ilan 500+D -) 1 tab PO DAILY [facility] Last Admin: 02/08/17 11:24 Dose: 1 tab Potassium Chloride 10 meq/ (Sodium Chloride) 1,005 mls @ 35 mls/hr IVPB Q24H TOMÁS Last Admin: 02/07/17 18:28 Dose: 35 mls/hr Lactobacillus Acidophilus (Bacid -) 1 tab PO DAILY [facility] Last Admin: 02/08/17 09:27 Dose: 1 tab Pantoprazole Sodium (Protonix -) 40 mg PO DAILY [facility] Last Admin: 02/08/17 09:27 Dose: Not Given - Objective Vital Signs: Vital Signs Temperature 37.1 C 02/08/17 08:00 Pulse Rate 88 02/08/17 08:00 Respiratory Rate 19 02/08/17 08:00 Blood Pressure 92/55 02/08/17 08:00 O2 Sat by Pulse Oximetry (%) 95 02/08/17 09:00 Constitutional: Yes: Well Nourished, No Distress, Calm Cardiovascular: Yes: Regular Rate and Rhythm. No: Gallop, Murmur, Rub Respiratory: Yes: Regular, CTA Bilaterally. No: Rales, Rhonchi, Wheezes Gastrointestinal: Yes: Normal Bowel Sounds, Soft. No: Distention, Tenderness Extremities: Yes: WNL Edema: Yes Edema: LLE: 1+, RLE: 1+ Labs: CBC, BMP 02/08/17 06:00 02/08/17 06:00 INR, PTT INR 1.04 (0.82-1.09) 01/12/17 14:30 Problem List - Problems (1) Multiple myeloma Code(s): C90.00 - MULTIPLE MYELOMA NOT HAVING ACHIEVED REMISSION Qualifiers: Qualified Code(s): C90.00 - Multiple myeloma not having achieved remission (2) Acute renal failure Code(s): N17.9 - ACUTE KIDNEY FAILURE, UNSPECIFIED Qualifiers: Qualified Code(s): N17.9 - Acute kidney failure, unspecified (3) Hypercalcemia Code(s): E83.52 - HYPERCALCEMIA (4) Metabolic encephalopathy Code(s): G93.41 - METABOLIC ENCEPHALOPATHY (5) Hypocalcemia Code(s): E83.51 - HYPOCALCEMIA (6) Hypomagnesemia Code(s): E83.42 - HYPOMAGNESEMIA (7) Hypophosphatemia Code(s): E83.39 - OTHER DISORDERS OF PHOSPHORUS METABOLISM Assessment/Plan (1) Multiple myeloma Assessment/Plan: -received velcade and dexamethasone -can continue care as an outpatient Code(s): C90.00 - MULTIPLE MYELOMA NOT HAVING ACHIEVED REMISSION Qualifiers: Multiple myeloma remission status: not in remission Qualified Code(s ): C90.00 - Multiple myeloma not having achieved remission (2) Acute renal failure Assessment/Plan: -improved with blood and hydration Code(s): N17.9 - ACUTE KIDNEY FAILURE, UNSPECIFIED Qualifiers: Acute renal failure type: unspecified Qualified Code(s): N17.9 - Acute kidney failure, unspecified (3) Hypocalcemia Assessment/Plan: -calcium replacement restarted Code(s): E83.52 - HYPERCALCEMIA (4) Metabolic encephalopathy -resolved (5) Anemia -transfuse today (6) FEN -electrolytes stable (7) Diarrhea -check stool for c diff (8) E coli UTI -finished full course of levaquin Dispo -plan for discharge tomorrow
--- NOTE | 2017-02-08 14:30 | PN ---
Progress Note (short form) - Note Progress Note: Patient seen and examined events noted Now with diarrhea, five BM thus far, accompanied by abdominal discomfort Cor: RSR, No murmurs, No gallops Lungs: CTA b/l Abd: Soft, Normal bowel sounds, No organomegaly Ext:much improved when compared to prior. mild edema noted Last Vital Signs Temp Pulse Resp BP Pulse Ox 98.2 F 82 18 104/65 97 02/07/17 08:00 02/07/17 08:00 02/07/17 08:00 02/07/17 08:00 02/07/17 08:32 CBC, BMP 02/07/17 06:00 02/07/17 06:00 Current Medications Generic Name Dose Route Start Last Admin Trade Name Freq PRN Reason Stop Dose Admin Acetaminophen 1,000 mg 01/24/17 11:36 01/28/17 03:06 Tylenol - PO 1,000 mg Q6H PRN Administration FEVER OR PAIN Sodium Chloride 1,000 mls @ 50 mls/hr 02/06/17 14:30 02/06/17 15:15 Normal Saline - IV 02/07/17 14:18 50 mls/hr ASDIR TOMÁS Administration Lactobacillus Acidophilus 1 tab 02/01/17 13:00 02/07/17 09:25 Bacid - PO 1 tab DAILY TOMÁS Administration Pantoprazole Sodium 40 mg 01/22/17 10:00 02/07/17 09:25 Protonix - PO Not Given DAILY TOMÁS Assessment/Plan: 81 y/o patient with Multiple Myeloma PRESENTED WITH Hypercalcemia Altered Mental status SHANIA Bone pains clinically much improved MM: IgGK/Light chain Myeloma 5th dose velcade on 02/06 On weekly velcade/dex will add revlimid/cytoxan based on clinical course, discussed about this again to the daughters last zometa 01/12.Tolerating well overall. Hgb and renal fn improved and stable, s/p one unit of prbc on 02/07. repeat myeloma labs slight improvement Hypocalcemia: calcium supplements. diarrhea: -send for c diff -apparently ate salmon yesterday, also daughters giving marijuana -velcade also a possibility -refused loperamide MRI spine/brain--extensive vertebral /skull mets. frontal skull--epidural lesion.No cord compression also c/o rt. hip pain-- mri pelvis ---extensive bone mets Xrays also show lucent lesions in femurs ortho f/u noted On lovenox for DVT prophylaxis d/c on hold until diarrhea improves and ruled out for c.diff communicated w/ RN. discussed in detail with the daughters discussed with . Problem List - Problems (1) Acute renal failure Code(s): N17.9 - ACUTE KIDNEY FAILURE, UNSPECIFIED Qualifiers: Qualified Code(s): N17.9 - Acute kidney failure, unspecified (2) Hypercalcemia Code(s): E83.52 - HYPERCALCEMIA (3) Multiple myeloma Code(s): C90.00 - MULTIPLE MYELOMA NOT HAVING ACHIEVED REMISSION Qualifiers: Qualified Code(s): C90.00 - Multiple myeloma not having achieved remission (4) Low back strain Code(s): S39.012A - STRAIN OF MUSCLE, FASCIA AND TENDON OF LOWER BACK, INIT Qualifiers: Qualified Code(s): S39.012A - Strain of muscle, fascia and tendon of lower back, initial encounter
--- NOTE | 2017-02-08 16:33 | PN ---
Progress Note, Physician History of Present Illness: Pt seen and examined at bedside. She is awake and alert. She has poor appetite. - Current Medication List Current Medications: Active Medications Acetaminophen (Tylenol -) 1,000 mg PO Q6H PRN PRN Reason: FEVER OR PAIN Last Admin: 01/28/17 03:06 Dose: 1,000 mg Calcium Carbonate/Cholecalciferol (Os-Ilan 500+D -) 1 tab PO DAILY [facility] Last Admin: 02/08/17 11:24 Dose: 1 tab Potassium Chloride 10 meq/ (Sodium Chloride) 1,005 mls @ 35 mls/hr IVPB Q24H TOM[facility] Last Admin: 02/07/17 18:28 Dose: 35 mls/hr Lactobacillus Acidophilus (Bacid -) 1 tab PO DAILY [facility] Last Admin: 02/08/17 09:27 Dose: 1 tab Pantoprazole Sodium (Protonix -) 40 mg PO DAILY [facility] Last Admin: 02/08/17 09:27 Dose: Not Given - Objective Vital Signs: Vital Signs Temperature 98.0 F 02/08/17 15:10 Pulse Rate 91 H 02/08/17 15:10 Respiratory Rate 20 02/08/17 15:10 Blood Pressure 98/56 02/08/17 15:10 O2 Sat by Pulse Oximetry (%) 95 02/08/17 09:00 Constitutional: Yes: Calm Eyes: Yes: Conjunctiva Clear HENT: Yes: Atraumatic Neck: Yes: Supple Cardiovascular: Yes: S1, S2 Respiratory: Yes: CTA Bilaterally Gastrointestinal: Yes: Normal Bowel Sounds, Soft Genitourinary: Yes: WNL Musculoskeletal: Yes: WNL Edema: Yes Edema: LLE: Trace, RLE: Trace Neurological: Yes: Oriented Psychiatric: Yes: Oriented Labs: CBC, BMP 02/08/17 06:00 02/08/17 06:00 INR, PTT INR 1.04 (0.82-1.09) 01/12/17 14:30 Problem List - Problems (1) Acute renal failure Code(s): N17.9 - ACUTE KIDNEY FAILURE, UNSPECIFIED Qualifiers: Qualified Code(s): N17.9 - Acute kidney failure, unspecified (2) Hypercalcemia Code(s): E83.52 - HYPERCALCEMIA (3) Multiple myeloma Code(s): C90.00 - MULTIPLE MYELOMA NOT HAVING ACHIEVED REMISSION Qualifiers: Qualified Code(s): C90.00 - Multiple myeloma not having achieved remission Assessment/Plan Current Medications Generic Name Dose Route Start Last Admin Trade Name Felisha PRN Reason Stop Dose Admin Acetaminophen 1,000 mg 01/24/17 11:36 01/28/17 03:06 Tylenol - PO 1,000 mg Q6H PRN Administration FEVER OR PAIN Calcium Carbonate/Cholecalciferol 1 tab 02/08/17 11:00 02/08/17 11:24 Os-Ilan 500+D - PO 1 tab DAILY TOM[facility] Administration Potassium Chloride 10 meq/ 1,005 mls @ 35 mls/hr 02/07/17 14:30 02/07/17 18:28 Sodium Chloride IVPB 35 mls/hr Q24H TOM[facility]S Administration Lactobacillus Acidophilus 1 tab 02/01/17 13:00 02/08/17 09:27 Bacid - PO 1 tab DAILY [facility]OM[facility] Administration Pantoprazole Sodium 40 mg 01/22/17 10:00 02/08/17 09:27 Protonix - PO Not Given DAILY TOM[facility]S Impression 1. Hypercalcemia improving 2. SHANIA 3. anemia 4. hypokalemia 5. multiple myeloma 6. malnutrition 7. failure to thrive Plan - cont fluids - check labs in am - encourage PO intake, she has not been eating much - discussed with family - will follow PRN Dr Soto
[2017-02-08] MEDS: POTASSIUM CHLORIDE 10 MEQ in SODIUM CHLORIDE 0.45% 1,000 ML IVPB SCH (18:14)
[2017-02-09] MEDS: POTASSIUM CHLORIDE 10 MEQ in SODIUM CHLORIDE 0.45% 1,000 ML IVPB SCH ×2 (01:45→16:40)
[2017-02-09 07:33] LABS: MCH 30.3 pg (25.7-33.7); MCHC 33.9 g/dl (32.0-36.0); MEAN CELL VOLUME 89.4 fl (80-96); MEAN PLT VOLUME 7.8 fl (7.5-11.1); PLATELET COUNT 148 K/MM3 (134-434); RDW 18.2 % (11.6-15.6); WHITE BLOOD COUNT 7.2 K/mm3 (4.0-10.0)
[2017-02-09 07:56] LABS: ALBUMIN 2.3 g/dl (3.4-5.0); ANION GAP 7 (8-16); CO2 25 mmol/L (21-32); CREATININE 0.8 mg/dL (0.55-1.02); GLUCOSE,RANDOM 64 mg/dL (74-106); MAGNESIUM 1.8 mg/dL (1.8-2.4); PHOSPHOROUS 3.1 mg/dL (2.5-4.9); SGOT/AST 34 U/L (15-37); SGPT/ALT 18 U/L (12-78)
[2017-02-09 07:58] LABS: ALK PHOS 68 U/L (45-117); BILIRUBIN,TOTAL 0.4 mg/dL (0.2-1.0); TOT PROT 5.3 g/dl (6.4-8.2)
[2017-02-09 08:15] LABS: CALCIUM 6.9 mg/dL (8.5-10.1)
[2017-02-09 08:47] LABS: BASOPHIL (MANUAL) 0 % (0-2.0); METAMYELOCYTE 4 % (0-2); PLATELET ESTIMATE ADEQUATE (NORMAL)
[2017-02-09 08:48] LABS: MYELOCYTE 3 % (0-2); REACTIVE LYMPHOCYTES 1 % (0-80)
[2017-02-09] MEDS: CALCIUM 500MG/VIT-D 200 UNITS COMBO TABLET (FP) PO SCH (10:40)
[2017-02-09] MEDS: LACTOBACILLUS ACIDOPHILUS 1 EACH TAB (FP) PO SCH (10:40)
[2017-02-09] MEDS: PANTOPRAZOLE 40 MG TABLET (FP) PO SCH (10:41)
--- NOTE | 2017-02-09 13:42 | PN ---
Progress Note, Physician - Current Medication List Current Medications: Active Medications Acetaminophen (Tylenol -) 1,000 mg PO Q6H PRN PRN Reason: FEVER OR PAIN Last Admin: 01/28/17 03:06 Dose: 1,000 mg Calcium Carbonate/Cholecalciferol (Os-Ilan 500+D -) 1 tab PO DAILY [facility] Last Admin: 02/09/17 10:40 Dose: 1 tab Potassium Chloride 10 meq/ (Sodium Chloride) 1,005 mls @ 35 mls/hr IVPB Q24H TOM[facility] Last Admin: 02/09/17 01:45 Dose: 35 mls/hr Lactobacillus Acidophilus (Bacid -) 1 tab PO DAILY [facility] Last Admin: 02/09/17 10:40 Dose: 1 tab Pantoprazole Sodium (Protonix -) 40 mg PO DAILY [facility] Last Admin: 02/09/17 10:41 Dose: Not Given - Objective Vital Signs: Vital Signs Temperature 36.9 C 02/09/17 13:00 Pulse Rate 87 02/09/17 13:00 Respiratory Rate 20 02/09/17 13:00 Blood Pressure 103/62 02/09/17 13:00 O2 Sat by Pulse Oximetry (%) 96 02/09/17 09:32 Labs: CBC, BMP 02/09/17 06:00 02/09/17 06:00 INR, PTT INR 1.04 (0.82-1.09) 01/12/17 14:30 Problem List - Problems (1) Multiple myeloma Code(s): C90.00 - MULTIPLE MYELOMA NOT HAVING ACHIEVED REMISSION Qualifiers: Qualified Code(s): C90.00 - Multiple myeloma not having achieved remission (2) Acute renal failure Code(s): N17.9 - ACUTE KIDNEY FAILURE, UNSPECIFIED Qualifiers: Qualified Code(s): N17.9 - Acute kidney failure, unspecified (3) Hypercalcemia Code(s): E83.52 - HYPERCALCEMIA (4) Metabolic encephalopathy Code(s): G93.41 - METABOLIC ENCEPHALOPATHY (5) Hypocalcemia Code(s): E83.51 - HYPOCALCEMIA (6) Hypomagnesemia Code(s): E83.42 - HYPOMAGNESEMIA (7) Hypophosphatemia Code(s): E83.39 - OTHER DISORDERS OF PHOSPHORUS METABOLISM
--- NOTE | 2017-02-09 14:55 | PN ---
Progress Note (short form) - Note Progress Note: Patient seen and examined events noted No further diarrhea Cor: RSR, No murmurs, No gallops Lungs: CTA b/l Abd: Soft, Normal bowel sounds, No organomegaly Ext:much improved when compared to prior. 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 May add cytoxan/revlimid -s/p zometa 01/12, now cannot give due to hypocalcemia -on calcium supplements -K repletion - normal creatinine fn -counts normal , n supportive transfusions needed -diarrhea resolved. -d/c planning Problem List - Problems (1) Acute renal failure Code(s): N17.9 - ACUTE KIDNEY FAILURE, UNSPECIFIED Qualifiers: Qualified Code(s): N17.9 - Acute kidney failure, unspecified (2) Hypercalcemia Code(s): E83.52 - HYPERCALCEMIA (3) Multiple myeloma Code(s): C90.00 - MULTIPLE MYELOMA NOT HAVING ACHIEVED REMISSION Qualifiers: Qualified Code(s): C90.00 - Multiple myeloma not having achieved remission (4) Low back strain Code(s): S39.012A - STRAIN OF MUSCLE, FASCIA AND TENDON OF LOWER BACK, INIT Qualifiers: Qualified Code(s): S39.012A - Strain of muscle, fascia and tendon of lower back, initial encounter
--- NOTE | 2017-02-09 14:57 | PN ---
Progress Note, Physician Chief Complaint: Patient denies cp, sob, n/v. Feeling better and diarrhea resolved. - Current Medication List Current Medications: Active Medications Acetaminophen (Tylenol -) 1,000 mg PO Q6H PRN PRN Reason: FEVER OR PAIN Last Admin: 01/28/17 03:06 Dose: 1,000 mg Calcium Carbonate/Cholecalciferol (Os-Ilan 500+D -) 1 tab PO DAILY [facility] Last Admin: 02/09/17 10:40 Dose: 1 tab Potassium Chloride 10 meq/ (Sodium Chloride) 1,005 mls @ 35 mls/hr IVPB Q24H [facility] Last Admin: 02/09/17 01:45 Dose: 35 mls/hr Lactobacillus Acidophilus (Bacid -) 1 tab PO DAILY [facility] Last Admin: 02/09/17 10:40 Dose: 1 tab Pantoprazole Sodium (Protonix -) 40 mg PO DAILY [facility] Last Admin: 02/09/17 10:41 Dose: Not Given - Objective Vital Signs: Vital Signs Temperature 36.9 C 02/09/17 13:00 Pulse Rate 87 02/09/17 13:00 Respiratory Rate 20 02/09/17 13:00 Blood Pressure 103/62 02/09/17 13:00 O2 Sat by Pulse Oximetry (%) 96 02/09/17 09:32 Constitutional: Yes: Well Nourished, No Distress, Calm Cardiovascular: Yes: Regular Rate and Rhythm. No: Gallop, Murmur, Rub Respiratory: Yes: Regular, CTA Bilaterally. No: Rales, Rhonchi, Wheezes Gastrointestinal: Yes: Normal Bowel Sounds, Soft. No: Distention, Tenderness Extremities: Yes: WNL Edema: Yes Edema: LLE: 1+, RLE: 1+ Labs: CBC, BMP 02/09/17 06:00 02/09/17 06:00 INR, PTT INR 1.04 (0.82-1.09) 01/12/17 14:30 Problem List - Problems (1) Multiple myeloma Code(s): C90.00 - MULTIPLE MYELOMA NOT HAVING ACHIEVED REMISSION Qualifiers: Qualified Code(s): C90.00 - Multiple myeloma not having achieved remission (2) Acute renal failure Code(s): N17.9 - ACUTE KIDNEY FAILURE, UNSPECIFIED Qualifiers: Qualified Code(s): N17.9 - Acute kidney failure, unspecified (3) Hypercalcemia Code(s): E83.52 - HYPERCALCEMIA (4) Metabolic encephalopathy Code(s): G93.41 - METABOLIC ENCEPHALOPATHY (5) Hypocalcemia Code(s): E83.51 - HYPOCALCEMIA (6) Hypomagnesemia Code(s): E83.42 - HYPOMAGNESEMIA (7) Hypophosphatemia Code(s): E83.39 - OTHER DISORDERS OF PHOSPHORUS METABOLISM Assessment/Plan (1) Multiple myeloma Assessment/Plan: -received velcade and dexamethasone -can continue care as an outpatient Code(s): C90.00 - MULTIPLE MYELOMA NOT HAVING ACHIEVED REMISSION Qualifiers: Multiple myeloma remission status: not in remission Qualified Code(s ): C90.00 - Multiple myeloma not having achieved remission (2) Acute renal failure Assessment/Plan: -improved with blood and hydration -at baseline Code(s): N17.9 - ACUTE KIDNEY FAILURE, UNSPECIFIED Qualifiers: Acute renal failure type: unspecified Qualified Code(s): N17.9 - Acute kidney failure, unspecified (3) Hypocalcemia Assessment/Plan: -calcium replacement restarted Code(s): E83.52 - HYPERCALCEMIA (4) Metabolic encephalopathy -resolved (5) Anemia -tH/H stable (6) FEN -electrolytes stable (7) Diarrhea -no stool for c. diff (8) E coli UTI -finished full course of levaquin -repeat urine culture negative Dispo -plan for discharge tomorrow
--- NOTE | 2017-02-09 19:06 | PN ---
Progress Note, Physician History of Present Illness: Pt seen and examined at bedside. She is awake and appears comfortable. She does not have much appetite. - Current Medication List Current Medications: Active Medications Acetaminophen (Tylenol -) 1,000 mg PO Q6H PRN PRN Reason: FEVER OR PAIN Last Admin: 01/28/17 03:06 Dose: 1,000 mg Calcium Carbonate/Cholecalciferol (Os-Ilan 500+D -) 1 tab PO DAILY [facility] Last Admin: 02/09/17 10:40 Dose: 1 tab Potassium Chloride 10 meq/ (Sodium Chloride) 1,005 mls @ 35 mls/hr IVPB Q24H [facility]OM[facility] Last Admin: 02/09/17 16:40 Dose: Not Given Lactobacillus Acidophilus (Bacid -) 1 tab PO DAILY [facility] Last Admin: 02/09/17 10:40 Dose: 1 tab Pantoprazole Sodium (Protonix -) 40 mg PO DAILY [facility] Last Admin: 02/09/17 10:41 Dose: Not Given - Objective Vital Signs: Vital Signs Temperature 98.5 F 02/09/17 13:00 Pulse Rate 87 02/09/17 13:00 Respiratory Rate 20 02/09/17 13:00 Blood Pressure 103/62 02/09/17 13:00 O2 Sat by Pulse Oximetry (%) 96 02/09/17 09:32 Constitutional: Yes: Calm Eyes: Yes: Conjunctiva Clear HENT: Yes: Atraumatic Neck: Yes: Supple Cardiovascular: Yes: S1, S2 Respiratory: Yes: Regular Gastrointestinal: Yes: Soft Genitourinary: Yes: WNL Edema: Yes Edema: LLE: 1+, RLE: 1+ Neurological: Yes: Oriented Psychiatric: Yes: Oriented Labs: CBC, BMP 02/09/17 06:00 02/09/17 06:00 INR, PTT INR 1.04 (0.82-1.09) 01/12/17 14:30 Problem List - Problems (1) Acute renal failure Code(s): N17.9 - ACUTE KIDNEY FAILURE, UNSPECIFIED Qualifiers: Qualified Code(s): N17.9 - Acute kidney failure, unspecified (2) Hypercalcemia Code(s): E83.52 - HYPERCALCEMIA (3) Multiple myeloma Code(s): C90.00 - MULTIPLE MYELOMA NOT HAVING ACHIEVED REMISSION Qualifiers: Qualified Code(s): C90.00 - Multiple myeloma not having achieved remission Assessment/Plan Current Medications Generic Name Dose Route Start Last Admin Trade Name Felisha PRN Reason Stop Dose Admin Acetaminophen 1,000 mg 01/24/17 11:36 01/28/17 03:06 Tylenol - PO 1,000 mg Q6H PRN Administration FEVER OR PAIN Calcium Carbonate/Cholecalciferol 1 tab 02/08/17 11:00 02/09/17 10:40 Os-Ilan 500+D - PO 1 tab DAILY [facility] Administration Potassium Chloride 10 meq/ 1,005 mls @ 35 mls/hr 02/07/17 14:30 02/09/17 16:40 Sodium Chloride IVPB Not Given Q24H TOMÁ[facility] Lactobacillus Acidophilus 1 tab 02/01/17 13:00 02/09/17 10:40 Bacid - PO 1 tab DAILY [facility] Administration Pantoprazole Sodium 40 mg 01/22/17 10:00 02/09/17 10:41 Protonix - PO Not Given DAILY [facility] Impression 1. Hypercalcemia improving 2. SHANIA 3. anemia 4. hypokalemia 5. multiple myeloma 6. malnutrition 7. failure to thrive 8. hypernatremia Plan - chnage fluids to d5w with potassium - replace potassium - encourage PO intake - encourage free water intake - will follow PRN Dr Soto
[2017-02-09] MEDS ORDERED: DEXTROSE 5%-WATER - 1,000 ML with POTASSIUM CHLORIDE 20 MEQ IVPB SCH (19:15)
[2017-02-09] MEDS ORDERED: DEXTROSE 5%-WATER - 1,000 ML with POTASSIUM CHLORIDE 20 MEQ IV SCH (19:15)
[2017-02-10 07:46] LABS: ANION GAP 9 (8-16); CALCIUM 7.1 mg/dL (8.5-10.1); CO2 23 mmol/L (21-32); CREATININE 0.8 mg/dL (0.55-1.02); GLUCOSE,RANDOM 69 mg/dL (74-106)
[2017-02-10] MEDS: CALCIUM 500MG/VIT-D 200 UNITS COMBO TABLET (FP) PO SCH (09:10)
[2017-02-10] MEDS: PANTOPRAZOLE 40 MG TABLET (FP) PO SCH (09:10)
[2017-02-10] MEDS: LACTOBACILLUS ACIDOPHILUS 1 EACH TAB (FP) PO SCH (09:10)
[2017-02-10] MEDS ORDERED: POTASSIUM CHLORIDE 20 MEQ in DEXTROSE 5%-WATER - 1,000 ML IVPB SCH (09:40)
--- NOTE | 2017-02-10 12:42 | PN ---
Progress Note, Physician History of Present Illness: Pt seen and examined at bedside. She is awake and alert. - Current Medication List Current Medications: Active Medications Acetaminophen (Tylenol -) 1,000 mg PO Q6H PRN PRN Reason: FEVER OR PAIN Last Admin: 01/28/17 03:06 Dose: 1,000 mg Calcium Carbonate/Cholecalciferol (Os-Ilan 500+D -) 1 tab PO DAILY [facility] Last Admin: 02/10/17 09:10 Dose: 1 tab Potassium Chloride 20 meq/ (Dextrose) 1,010 mls @ 35 mls/hr IVPB Q24H [facility] Last Admin: 02/09/17 20:00 Dose: 35 mls/hr Lactobacillus Acidophilus (Bacid -) 1 tab PO DAILY [facility] Last Admin: 02/10/17 09:10 Dose: 1 tab Pantoprazole Sodium (Protonix -) 40 mg PO DAILY [facility] Last Admin: 02/10/17 09:10 Dose: Not Given - Objective Vital Signs: Vital Signs Temperature 98.7 F 02/10/17 09:38 Pulse Rate 89 02/10/17 12:06 Respiratory Rate 16 02/10/17 09:38 Blood Pressure 98/62 02/10/17 09:38 O2 Sat by Pulse Oximetry (%) 96 02/10/17 12:06 Constitutional: Yes: Calm Eyes: Yes: Conjunctiva Clear HENT: Yes: Atraumatic Neck: Yes: Supple Cardiovascular: Yes: S1, S2 Respiratory: Yes: CTA Bilaterally Gastrointestinal: Yes: Normal Bowel Sounds, Soft Musculoskeletal: Yes: WNL Edema: Yes Edema: LLE: Trace, RLE: Trace Neurological: Yes: Oriented Psychiatric: Yes: Oriented Labs: CBC, BMP 02/09/17 06:00 02/10/17 06:00 INR, PTT INR 1.04 (0.82-1.09) 01/12/17 14:30 Problem List - Problems (1) Acute renal failure Code(s): N17.9 - ACUTE KIDNEY FAILURE, UNSPECIFIED Qualifiers: Qualified Code(s): N17.9 - Acute kidney failure, unspecified (2) Hypercalcemia Code(s): E83.52 - HYPERCALCEMIA (3) Multiple myeloma Code(s): C90.00 - MULTIPLE MYELOMA NOT HAVING ACHIEVED REMISSION Qualifiers: Qualified Code(s): C90.00 - Multiple myeloma not having achieved remission Assessment/Plan Current Medications Generic Name Dose Route Start Last Admin Trade Name Felisha PRN Reason Stop Dose Admin Acetaminophen 1,000 mg 01/24/17 11:36 01/28/17 03:06 Tylenol - PO 1,000 mg Q6H PRN Administration FEVER OR PAIN Calcium Carbonate/Cholecalciferol 1 tab 02/08/17 11:00 02/10/17 09:10 Os-Ilan 500+D - PO 1 tab DAILY [facility] Administration Potassium Chloride 20 meq/ 1,010 mls @ 35 mls/hr 02/10/17 09:40 02/09/17 20:00 Dextrose IVPB 35 mls/hr Q24H [facility]OM[facility] Administration Lactobacillus Acidophilus 1 tab 02/01/17 13:00 02/10/17 09:10 Bacid - PO 1 tab DAILY [facility] Administration Pantoprazole Sodium 40 mg 01/22/17 10:00 02/10/17 09:10 Protonix - PO Not Given DAILY [facility] Impression 1. Hypercalcemia improving 2. SHANIA 3. anemia 4. hypokalemia 5. multiple myeloma 6. malnutrition 7. failure to thrive 8. hypernatremia Plan - can stop fluids - monitor calcium levels - will need to monitor cmp after discharge - encourage PO intake - encourage free water intake - will follow PRN - discussed with family Dr Soto
--- NOTE | 2017-02-10 12:42 | DS ---
Physical Examination Vital Signs: Vital Signs Temperature 37.1 C 02/10/17 09:38 Pulse Rate 89 02/10/17 12:06 Respiratory Rate 16 02/10/17 09:38 Blood Pressure 98/62 02/10/17 09:38 O2 Sat by Pulse Oximetry (%) 96 02/10/17 12:06 Constitutional: Yes: Well Nourished, No Distress, Calm Cardiovascular: Yes: Regular Rate and Rhythm. No: Gallop, Murmur, Rub Respiratory: Yes: Regular, CTA Bilaterally. No: Rales, Rhonchi, Wheezes Gastrointestinal: Yes: Normal Bowel Sounds, Soft. No: Distention, Tenderness Extremities: Yes: WNL Edema: Yes Edema: LLE: 1+, RLE: 1+ Labs: CBC, BMP 02/09/17 06:00 02/10/17 06:00 Discharge Summary Reason For Visit: ACUTE RENAL FAILURE; MULTIPLE MYELOMA Current Active Problems Acute renal failure (Acute) Hypercalcemia (Acute) Hypocalcemia (Acute) Hypomagnesemia (Acute) Hypophosphatemia (Acute) Loose bowel movements (Acute) Metabolic encephalopathy (Acute) Multiple myeloma (Acute) Hospital Course: (1) Multiple myeloma Code(s): C90.00 - MULTIPLE MYELOMA NOT HAVING ACHIEVED REMISSION Qualifiers: Qualified Code(s): C90.00 - Multiple myeloma not having achieved remission (2) Acute renal failure Code(s): N17.9 - ACUTE KIDNEY FAILURE, UNSPECIFIED Qualifiers: Qualified Code(s): N17.9 - Acute kidney failure, unspecified (3) Hypercalcemia Code(s): E83.52 - HYPERCALCEMIA (4) Metabolic encephalopathy Code(s): G93.41 - METABOLIC ENCEPHALOPATHY (5) Hypocalcemia Code(s): E83.51 - HYPOCALCEMIA (6) Hypomagnesemia Code(s): E83.42 - HYPOMAGNESEMIA (7) Hypophosphatemia Code(s): E83.39 - OTHER DISORDERS OF PHOSPHORUS METABOLISM Ms Fuentes is an 81 year old female who came in with AMS secondary to untreated multiple myeloma causing hypercalcemia. She was given zometa and hydrated with IV lasix. Her calcium improved. She was seen by oncology and started on velcade and dexamethasone after multiple discussion with family. She improved and her mental status normalized. Her hospital stay was complicated by diarrhea secondary to velcade, a pansensitive UTI that was fully treated while here, and multiple electrolytes abnormalities that at first took clinimix and IV replacement. Patient cannot take oral phosphorus or magnesium secondary to diarrhea from sucralose. However as her diet improved she was able to maintain normal levels without supplementation. She had anemia secondary to her malignancy and velcade and was transfused. Currently she is safe for discharge home. 31 minutes spent in preparation of this discharge Condition: Good - Instructions Diet, Activity, Other Instructions: resume previous diet and activity Referrals: Arleth Beck MD [Non Staff, Medical] - Drew Bello MD [Staff Physician] - Reymundo Soto MD [Staff Physician] - Disposition: [facility]/HOME HEALTH CARE - Home Medications Comprehensive Discharge Medication List: Ambulatory Orders Calcium 500Mg/Vit-D 200 Units [Os-Ilan 500+D -] 1 tab PO DAILY #30 tab 02/10/17 Pantoprazole Sodium [Protonix -] 40 mg PO DAILY #30 tab.ec 02/10/17
--- NOTE | 2017-02-10 13:23 | PN ---
Progress Note (short form) - Note Progress Note: Patient seen and examined feels well. ready to go home. Cor: RSR, No murmurs, No gallops Lungs: CTA b/l Abd: Soft, Normal bowel sounds, No organomegaly Ext:edema noted Last Vital Signs Temp Pulse Resp BP Pulse Ox 98.7 F 89 16 98/62 96 02/10/17 09:38 02/10/17 12:06 02/10/17 09:38 02/10/17 09:38 02/10/17 12:06 CBC, BMP 02/09/17 06:00 02/10/17 06:00 Current Medications Generic Name Dose Route Start Last Admin Trade Name Freq PRN Reason Stop Dose Admin Acetaminophen 1,000 mg 01/24/17 11:36 01/28/17 03:06 Tylenol - PO 1,000 mg Q6H PRN Administration FEVER OR PAIN Calcium Carbonate/Cholecalciferol 1 tab 02/08/17 11:00 02/10/17 09:10 Os-Ilan 500+D - PO 1 tab DAILY [facility] Administration Lactobacillus Acidophilus 1 tab 02/01/17 13:00 02/10/17 09:10 Bacid - PO 1 tab DAILY [facility] Administration Pantoprazole Sodium 40 mg 01/22/17 10:00 02/10/17 09:10 Protonix - PO Not Given DAILY [facility] Assessment/Plan: 81 y/o patient with Multiple Myeloma PRESENTED WITH Hypercalcemia Altered Mental status SHANIA Bone pains clinically much improved, now AAOx3. 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 May add cytoxan/revlimid -s/p zometa 01/12, now cannot give due to hypocalcemia -c/w calcium supplements -stopped fluids -encourage PO intake - normal creatinine fn -diarrhea resolved. -d/c today, they are aware to call the office with appointment. Problem List - Problems (1) Acute renal failure Code(s): N17.9 - ACUTE KIDNEY FAILURE, UNSPECIFIED Qualifiers: Qualified Code(s): N17.9 - Acute kidney failure, unspecified (2) Hypercalcemia Code(s): E83.52 - HYPERCALCEMIA (3) Multiple myeloma Code(s): C90.00 - MULTIPLE MYELOMA NOT HAVING ACHIEVED REMISSION Qualifiers: Qualified Code(s): C90.00 - Multiple myeloma not having achieved remission (4) Low back strain Code(s): S39.012A - STRAIN OF MUSCLE, FASCIA AND TENDON OF LOWER BACK, INIT Qualifiers: Qualified Code(s): S39.012A - Strain of muscle, fascia and tendon of lower back, initial encounter
[2017-02-10 13:37] VITALS: BP 100/53; PULSE 94; TEMP 98.1
== END 2017-02-10 14:25 | disposition home health service (06) | DRG 840 ==
LOC: JER 13:19 → JERBED 18:02 → J4W 01-13 13:30 → J7W 01-14 18:06
PROVIDERS: ADMIT Internal Medicine; ATTEND Internal Medicine
PROC: 30233H1 Transfusion of Nonautologous Whole Blood into Peripheral Vein, Percutaneous Approach (ICD-10-PCS; principal; 2017-01-16)
DX: C90.00 Multiple myeloma not having achieved remission (principal); G93.41 Metabolic encephalopathy; J96.01 Acute respiratory failure with hypoxia; N17.9 Acute kidney failure, unspecified; R65.10 Systemic inflammatory response syndrome (SIRS) of non-infectious origin without acute organ dysfunction; E87.0 Hyperosmolality and hypernatremia; E46 Unspecified protein-calorie malnutrition; N39.0 Urinary tract infection, site not specified; E83.52 Hypercalcemia; E87.6 Hypokalemia; E83.42 Hypomagnesemia; D69.6 Thrombocytopenia, unspecified; E83.39 Other disorders of phosphorus metabolism; E86.0 Dehydration; J44.9 Chronic obstructive pulmonary disease, unspecified; K57.30 Diverticulosis of large intestine without perforation or abscess without bleeding; I95.9 Hypotension, unspecified; R00.0 Tachycardia, unspecified; K59.00 Constipation, unspecified; D64.9 Anemia, unspecified; R62.7 Adult failure to thrive; Z68.30 Body mass index [BMI] 30.0-30.9, adult; Z66 Do not resuscitate; M25.551 Pain in right hip; T50.995A Adverse effect of other drugs, medicaments and biological substances, initial encounter; R19.7 Diarrhea, unspecified; Y92.230 Patient room in hospital as the place of occurrence of the external cause; E78.5 Hyperlipidemia, unspecified; B96.29 Other Escherichia coli [E. coli] as the cause of diseases classified elsewhere; R60.0 Localized edema
CPT/HCPCS: 36415; 36430; 36511; 70552-TC; 71010-TC; 72142-TC; 72147-TC; 72149-TC; 72196-TC; 73552-TC-LT; 73552-TC-RT; 74000-TC; 74020-TC; 76775-TC; 80048; 80053; 80076; 81003; 81015; 82009; 82310; 82330; 82570; 82784; 82803; 83605; 83615; 83690; 83735; 83883; 83970; 84100; 84155; 84156; 84165; 84443; 84484; 84550; 85025; 85027; 85610; 85730; 85810; 86022; 86334; 86850; 86900; 86901; 86922; 87040; 87086; 87177; 87186; 87205; 87209; 87324; 87449; 93005; 93010; 93970-TC; 96401; 97116-GP; 99285-25; A9576; J1644; J3489; J9041; P9038; P9058

== ENCOUNTER 2017-02-20 07:34 | Day surgery (SDC) | payer OTHER ==
[2017-02-20] MEDS ORDERED: BORTEZOMIB (VELCADE) 2.5 MG/ML SUB-Q INJECTION SQ ONE (08:00)
[2017-02-20 11:28] LABS: MCH 30.2 pg (25.7-33.7); MCHC 33.3 g/dl (32.0-36.0); MEAN CELL VOLUME 90.6 fl (80-96); PLATELET COUNT 127 K/MM3 (134-434); RDW 17.5 % (11.6-15.6); WHITE BLOOD COUNT 8.4 K/mm3 (4.0-10.0)
[2017-02-20 12:12] LABS: ANION GAP 6 (8-16); BILIRUBIN,DIRECT 0.1 mg/dL (0.0-0.2); CO2 30 mmol/L (21-32); CREATININE 1.2 mg/dL (0.55-1.02); GLUCOSE,RANDOM 100 mg/dL (74-106); MAGNESIUM 2.3 mg/dL (1.8-2.4); SGOT/AST 36 U/L (15-37); SGPT/ALT 15 U/L (12-78); TOT PROT 6.9 g/dl (6.4-8.2)
[2017-02-20 12:20] LABS: ALK PHOS 75 U/L (45-117); BILIRUBIN,TOTAL 0.6 mg/dL (0.2-1.0)
[2017-02-20 12:50] LABS: BASOPHIL (MANUAL) 1 % (0-2.0); METAMYELOCYTE 5 % (0-2); MYELOCYTE 3 % (0-2); TOTAL CELLS COUNTED 100
[2017-02-20 16:34] VITALS: BP 132/84; PULSE 91; TEMP 97.9
== END 2017-02-20 13:10 | disposition home or self-care (01) ==
LOC: JONCCHEMO 07:34
PROVIDERS: ATTEND Internal Medicine Hematology & Oncology
DX: Z51.11 Encounter for antineoplastic chemotherapy (principal); C90.00 Multiple myeloma not having achieved remission
CPT/HCPCS: 36415; 80053; 80076; 83735; 85025; 96401; J9041

== ENCOUNTER 2017-02-27 08:14 | Day surgery (SDC) | payer OTHER ==
[2017-02-27] MEDS ORDERED: DEXAMETHASONE 4 MG TABLET (FP) PO ONE ×2 (09:00→12:15)
[2017-02-27] MEDS ORDERED: ZOLEDRONIC ACID 3 MG in SODIUM CHLORIDE 100 ML IVPB ONE ×2 (09:00→11:15)
[2017-02-27] MEDS ORDERED: BORTEZOMIB (VELCADE) 2.5 MG/ML SUB-Q INJECTION SQ ONE (09:30)
[2017-02-27 11:30] LABS: MCHC 32.9 g/dl (32.0-36.0); MEAN PLT VOLUME 7.6 fl (7.5-11.1); PLATELET COUNT 102 K/MM3 (134-434); RDW 17.5 % (11.6-15.6); WHITE BLOOD COUNT 7.6 K/mm3 (4.0-10.0)
[2017-02-27 12:02] LABS: ALBUMIN 3.3 g/dl (3.4-5.0); ALK PHOS 77 U/L (45-117); ANION GAP 8 (8-16); BILIRUBIN,DIRECT 0.1 mg/dL (0.0-0.2); BILIRUBIN,TOTAL 0.4 mg/dL (0.2-1.0); CO2 26 mmol/L (21-32); CREATININE 1.6 mg/dL (0.55-1.02); GLUCOSE,RANDOM 101 mg/dL (74-106); MAGNESIUM 2.1 mg/dL (1.8-2.4); SGOT/AST 45 U/L (15-37); SGPT/ALT 29 U/L (12-78); TOT PROT 7.4 g/dl (6.4-8.2)
[2017-02-27] MEDS ORDERED: PANTOPRAZOLE 40 MG TABLET (FP) PO ONE (12:15)
[2017-02-27 12:26] LABS: URIC ACID 7.6 mg/dL (2.6-7.2)
[2017-02-27 12:32] LABS: METAMYELOCYTE 2 % (0-2); MYELOCYTE 6 % (0-2); NUCLEATED RED BLOOD CELL 2 % (0-0); PLATELET ESTIMATE DECREASED (NORMAL); PROMYELOCYTE 1 % (0-2); TOTAL CELLS COUNTED 100
[2017-02-27 16:24] VITALS: BP 127/78; PULSE 100; TEMP 98.6
== END 2017-02-27 14:05 | disposition home or self-care (01) ==
LOC: JONCCHEMO 08:14 → J7W 11:47 → JONCCHEMO 14:05
PROVIDERS: ATTEND Internal Medicine Hematology & Oncology
PROC: 3E01305 Introduction of Other Antineoplastic into Subcutaneous Tissue, Percutaneous Approach (ICD-10-PCS; principal; 2017-02-27)
PROC: 3E033GC Introduction of Other Therapeutic Substance into Peripheral Vein, Percutaneous Approach (ICD-10-PCS; 2017-02-27)
DX: Z51.11 Encounter for antineoplastic chemotherapy (principal); C90.00 Multiple myeloma not having achieved remission
CPT/HCPCS: 36415; 80053; 80076; 83735; 84550; 85025; 96365; 96401; 96417; J3489; J9041

== ENCOUNTER 2017-03-08 07:28 | Inpatient (IN) | payer OTHER ==
[2017-03-08] MEDS ORDERED: BORTEZOMIB (VELCADE) 2.5 MG/ML SUB-Q INJECTION SQ ONE (10:00)
[2017-03-08] MEDS ORDERED: DEXAMETHASONE 4 MG TABLET (FP) PO ONE (10:00)
[2017-03-08 11:19] LABS: BASOPHIL 0.6 % (0-2.0); EOSINOPHIL 0.2 % (0-4.5); MCHC 32.7 g/dl (32.0-36.0); MEAN CELL VOLUME 91.7 fl (80-96); MEAN PLT VOLUME 6.8 fl (7.5-11.1); NEUTROPHILS 61.6 % (42.8-82.8); PLATELET COUNT 135 K/MM3 (134-434); RDW 17.8 % (11.6-15.6); WHITE BLOOD COUNT 10.9 K/mm3 (4.0-10.0)
[2017-03-08 11:47] LABS: ALBUMIN 3.4 g/dl (3.4-5.0); ALK PHOS 74 U/L (45-117); ANION GAP 6 (8-16); BILIRUBIN,DIRECT 0.1 mg/dL (0.0-0.2); BILIRUBIN,TOTAL 0.4 mg/dL (0.2-1.0); CALCIUM 8.7 mg/dL (8.5-10.1); CO2 26 mmol/L (21-32); GLUCOSE,RANDOM 81 mg/dL (74-106); MAGNESIUM 2.5 mg/dL (1.8-2.4); SGOT/AST 36 U/L (15-37); SGPT/ALT 24 U/L (12-78); TOT PROT 7.7 g/dl (6.4-8.2)
[2017-03-08] MEDS ORDERED: DEXTROSE 5%-0.45% SALINE - 500 ML IV SCH (13:45)
[2017-03-08] MEDS ORDERED: ACETAMINOPHEN 325 MG TABLET (FP) PO PRN (18:28)
[2017-03-08] MEDS ORDERED: CEFTRIAXONE 1 GM in DEXTROSE 5%-WATER - 50 ML IVPB SCH (18:30)
[2017-03-08] MEDS ORDERED: AZITHROMYCIN 250 MG TABLET PO ONE ×2 (18:31→22:00)
[2017-03-08] MEDS ORDERED: LEVOFLOXACIN 500 MG IVPB 100 ML IVPB ONE ×2 (18:45→22:00)
[2017-03-08 20:20] VITALS: BMI 26.5
--- NOTE | 2017-03-08 21:30 | HP ---
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 ? dementia), CA: Sister (2, one 64 with COPD and chart lists Breast CA. she did not give me h/o bca), Other: Father (: 71 aneurysm. COPD), Mother, Sister, Daughter (healthy) Review of Systems - Review of Systems Respiratory: reports: Cough Musculoskeletal: reports: Back Pain, Muscle Cramps Physical Examination Vital Signs: Vital Signs Temperature 98.6 F 03/08/17 18:07 Pulse Rate 98 H 03/08/17 18:07 Respiratory Rate 16 03/08/17 18:07 Blood Pressure 111/62 03/08/17 18:07 O2 Sat by Pulse Oximetry (%) 96 03/08/17 20:20 Constitutional: Yes: Anxious HENT: Yes: Atraumatic, Normocephalic Neck: Yes: Supple, Trachea Midline Cardiovascular: Yes: Regular Rate and Rhythm Respiratory: Yes: Regular, CTA Bilaterally Gastrointestinal: Yes: Normal Bowel Sounds, Soft Edema: No Labs: CBC, BMP 03/08/17 11:00 03/08/17 11:00 Assessment/Plan MM on Rigoberto/Dex w/ back pain. Found to have a new T10 compression fracture and CXR with possible atelectasis/ infiltrate. -Levaquin -IVF for cr to improve -if cr improves will place MR contrast images -daughter prefers to have non-contrast images. Would decide the am creatinine. -pending MRI nxt step will be pursued. -discussed with the daughter in detail.
[2017-03-08] MEDS: SODIUM CHLORIDE 1,000 ML IV SCH (22:14)
[2017-03-09 07:30] LABS: MCHC 32.7 g/dl (32.0-36.0); MEAN CELL VOLUME 91.8 fl (80-96); MEAN PLT VOLUME 7.2 fl (7.5-11.1); PLATELET COUNT 124 K/MM3 (134-434); RDW 17.8 % (11.6-15.6); WHITE BLOOD COUNT 11.1 K/mm3 (4.0-10.0)
[2017-03-09 07:56] LABS: CALCIUM 8.6 mg/dL (8.5-10.1)
[2017-03-09 08:03] LABS: ALBUMIN 3.1 g/dl (3.4-5.0); ALK PHOS 69 U/L (45-117); ANION GAP 10 (8-16); BILIRUBIN,TOTAL 0.4 mg/dL (0.2-1.0); CO2 21 mmol/L (21-32); GLUCOSE,RANDOM 76 mg/dL (74-106); PHOSPHOROUS 3.4 mg/dL (2.5-4.9); SGOT/AST 41 U/L (15-37); SGPT/ALT 20 U/L (12-78)
[2017-03-09] MEDS ORDERED: DEXAMETHASONE 4 MG TABLET (FP) PO ONE (10:00)
[2017-03-09 11:41] LABS: METAMYELOCYTE 5 % (0-2); TOTAL CELLS COUNTED 100
[2017-03-09 11:42] LABS: PLATELET ESTIMATE SLT DECREASED (NORMAL)
--- NOTE | 2017-03-09 13:07 | PN ---
Progress Note (short form) - Note Progress Note: Last Vital Signs Temp Pulse Resp BP Pulse Ox 98.1 F 104 H 16 104/74 96 03/09/17 08:55 03/09/17 08:47 03/09/17 05:51 03/09/17 08:47 03/08/17 20:20 CBC, BMP 03/09/17 06:00 03/09/17 06:00 Current Medications Generic Name Dose Route Start Last Admin Trade Name Freq PRN Reason Stop Dose Admin Acetaminophen 325 mg 03/08/17 18:28 Tylenol - PO Q6H PRN FEVER OR PAIN Sodium Chloride 1,000 mls @ 83 mls/hr 03/08/17 18:30 03/08/17 22:14 Normal Saline - IV 83 mls/hr ASDIR TOMÁS Administration Levofloxacin 50 mls @ 50 mls/hr 03/10/17 18:00 Levaquin 250 Mg Premixed Ivpb - IVPB Q2D@1800 TOMÁS
--- NOTE | 2017-03-09 17:04 | CONSULT ---
Consult Consult Specialty:: Nephrology Reason for Consultation:: SHANIA - History of Present Illness Chief Complaint: sent in for back pain and new compression fracture History of Present Illness: Pt is an 81 year old female with pmhx of multiple myeloma who was sent in to the hospital for back pain and was found to have a compression fracture at T10. I was called to evaluate her for SHANIA. She was found to have elevated creatinine. She had bloodwork on on 02/27 where the creatinine started to rise. She complains of back pain. She has poor oral intake. She denies shortness of breath. She denies dysuria or hematuria. Pt was started on fluid yesterday. She is known to me from prior admissions. 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 ? dementia), CA: Sister (2, one 64 with COPD and chart lists Breast CA. she did not give me h/o bca), Other: Father (: 71 aneurysm. COPD), Mother, Sister, Daughter (healthy) Review of Systems - Review of Systems Constitutional: reports: Malaise Eyes: reports: No Symptoms HENT: reports: No Symptoms Neck: reports: No Symptoms Cardiovascular: denies: Edema, Palpitations, Shortness of Breath Respiratory: reports: No Symptoms Gastrointestinal: reports: No Symptoms Genitourinary: reports: No Symptoms Musculoskeletal: reports: Other (back pain) Neurological: reports: No Symptoms Endocrine: reports: No Symptoms Psychiatric: reports: Anxiety Physical Exam Vital Signs: Vital Signs Temperature 98.1 F 03/09/17 14:01 Pulse Rate 106 H 03/09/17 14:01 Respiratory Rate 20 03/09/17 14:01 Blood Pressure 121/75 03/09/17 14:01 O2 Sat by Pulse Oximetry (%) 96 03/08/17 20:20 Constitutional: Yes: Anxious Eyes: Yes: Conjunctiva Clear HENT: Yes: Atraumatic Neck: Yes: Supple Cardiovascular: Yes: S1, S2 Respiratory: Yes: CTA Bilaterally Gastrointestinal: Yes: Soft Renal/: Yes: WNL Musculoskeletal: Yes: Back Pain, Muscle Weakness Edema: No Neurological: Yes: Oriented Psychiatric: Yes: Oriented Labs: CBC, BMP 03/09/17 06:00 03/09/17 06:00 Laboratory Tests 02/08/17 02/09/17 02/10/17 06:00 06:00 06:00 WBC Hgb Plt Count Sodium Potassium Chloride Carbon Dioxide Anion Gap BUN Creatinine 0.9 D 0.8 0.8 Serum Total Protein Albumin Globulin Albumin/Globulin Ratio Qcsbd-6-Uiulbbwpx Lkqqi-9-Zcaldqtfi Beta Globulins Gamma Globulins IgG IgA IgM TOM M-Papito TOM Comments 02/20/17 02/27/17 03/08/17 11:05 11:00 11:00 WBC 10.9 H D Hgb 9.6 L Plt Count 135 D Sodium Potassium Chloride Carbon Dioxide Anion Gap BUN Creatinine 1.2 H D 1.6 H D Serum Total Protein Albumin Globulin Albumin/Globulin Ratio Lgaad-5-Mfxhqlazw Zndgt-2-Hedsusfiu Beta Globulins Gamma Globulins IgG IgA IgM TOM M-[place] TOM Comments 03/08/17 03/08/17 03/09/17 11:00 11:00 06:00 WBC 11.1 H Hgb 8.3 L D Plt Count 124 L Sodium 139 Potassium 4.5 D Chloride 107 Carbon Dioxide 26 Anion Gap 6 L BUN 22 H Creatinine 2.0 H D Serum Total Protein Pending Albumin Pending Globulin Pending Albumin/Globulin Ratio Pending Vdfep-7-Qleqzeziy Pending Bhhas-2-Cvjjrwuzz Pending Beta Globulins Pending Gamma Globulins Pending IgG Pending IgA Pending IgM Pending TOM M-Papito Pending TOM Comments Pending 03/09/17 06:00 WBC Hgb Plt Count Sodium 139 Potassium 4.8 Chloride 108 H Carbon Dioxide 21 Anion Gap 10 BUN 28 H D Creatinine 2.0 H Serum Total Protein Albumin Globulin Albumin/Globulin Ratio Rbbqz-3-Iyyijxkhb Wdzwo-1-Svdembivi Beta Globulins Gamma Globulins IgG IgA IgM TOM M-[place] TOM Comments Imaging - Results X-ray: Report Reviewed (t10 compression fracture) Assessment/Plan Current Medications Generic Name Dose Route Start Last Admin Trade Name Freq PRN Reason Stop Dose Admin Acetaminophen 325 mg 03/08/17 18:28 Tylenol - PO Q6H PRN FEVER OR PAIN Sodium Chloride 1,000 mls @ 83 mls/hr 03/08/17 18:30 03/08/17 22:14 Normal Saline - IV 83 mls/hr ASDIR TOMÁS Administration Levofloxacin 50 mls @ 50 mls/hr 03/10/17 18:00 Levaquin 250 Mg Premixed Ivpb - IVPB Q2D@1800 TOMÁS Impression 1. multiple myeloma 2. SHANIA 3. anemia 4. Chol 5. COPD 6. anemia 7. compression fracture Plan - check ultrasound kidney and bladder to r/o obstruction - send ua, urine electrolytes and urine creatinine - will discuss status of multiple myeloma with oncology - decrease rate of fluids - will need to evaluate urine and ultrasound, then will comment on etiology of SHANIA Dr Soto
--- NOTE | 2017-03-09 22:26 | HOSP ---
Subjective - Review of Symptoms Events since last encounter: Was called to see the patient because of anxiousness. Pt has been having numerous episodes of diarrhea. Primary care team was called and placed orders to d/c levaquin and to give IV fluids. Primary team requested hospitalist see the patient because she was anxious. On speaking with the patient, she was uncomfortable because of the frequent diarrhea and abdominal pain. She also had nausea. All her symptoms started at the same time. She had no other complaints. No vomiting, fever, blood in stools , headache, chest pain, shortness of breath. Pt calmed down after we spoke. She was reassured and counselled. Vital signs stable. Primary team to reevaluate in am. Jaime Dietrich MD PGY-1 Physical Examination Vital Signs: Vital Signs Temperature 98.1 F 03/09/17 14:01 Pulse Rate 106 H 03/09/17 14:01 Respiratory Rate 20 03/09/17 14:01 Blood Pressure 121/75 03/09/17 14:01 O2 Sat by Pulse Oximetry (%) 96 03/08/17 20:20 Labs: CBC, BMP 03/09/17 06:00 03/09/17 06:00 Visit type - Emergency Visit Emergency Visit: No - New Patient This patient is new to me today: Yes Date on this admission: 03/09/17 - Critical Care Critical Care patient: No
[2017-03-10 00:06] LABS: A/G RATIO 0.8 (0.7-1.7); ALBUMIN 3.3 g/dL (2.9-4.4); ALPHA-1-GLOBULIN 0.3 g/dL (0.0-0.4); BETA GLOBULIN 0.8 g/dL (0.7-1.3); GAMMA GLOBULIN 2.1 g/dL (0.4-1.8); GLOBULIN, TOTAL 4.2 g/dL (2.2-3.9); M-SPIKE Comment: g/dL (Not Observed); TOTAL PROTEIN 7.5 g/dL (6.0-8.5)
[2017-03-10 07:39] LABS: MCH 29.7 pg (25.7-33.7); MCHC 32.4 g/dl (32.0-36.0); MEAN CELL VOLUME 91.7 fl (80-96); MEAN PLT VOLUME 7.3 fl (7.5-11.1); PLATELET COUNT 145 K/MM3 (134-434); RDW 17.6 % (11.6-15.6); WHITE BLOOD COUNT 14.9 K/mm3 (4.0-10.0)
[2017-03-10 08:16] LABS: ANION GAP 9 (8-16); BILIRUBIN,TOTAL 0.5 mg/dL (0.2-1.0); CALCIUM 8.3 mg/dL (8.5-10.1); CO2 19 mmol/L (21-32); CREATININE 2.2 mg/dL (0.55-1.02); GLUCOSE,RANDOM 97 mg/dL (74-106); SGOT/AST 39 U/L (15-37); SGPT/ALT 21 U/L (12-78); TOT PROT 6.8 g/dl (6.4-8.2)
[2017-03-10 08:17] LABS: ALK PHOS 68 U/L (45-117)
[2017-03-10 09:20] LABS: URINE APPEARANCE SLCLOUDY; URINE BILIRUBIN NEGATIVE (NEGATIVE); URINE BLOOD NEGATIVE (NEGATIVE); URINE COLOR STRAW; URINE GLUCOSE (UA) NEGATIVE (NEGATIVE); URINE KETONE NEGATIVE (NEGATIVE); URINE NITRITE NEGATIVE (NEGATIVE); URINE UROBILINOGEN NEGATIVE mg/dL (0.2-1.0)
[2017-03-10 09:21] LABS: URINE PROTEIN 1+ (NEGATIVE)
[2017-03-10 09:23] LABS: URINE CREATININE 15.7 mg/dL (20-320)
[2017-03-10 09:29] LABS: URINE BACTERIA RARE /hpf (NONE SEEN); URINE MUCUS RARE; URINE RBC <1 /hpf (0-3); URINE WBC 3 /hpf (3-5)
[2017-03-10 09:41] LABS: METAMYELOCYTE 3 % (0-2); PLATELET ESTIMATE ADEQUATE (NORMAL); TOTAL CELLS COUNTED 100
[2017-03-10 11:19] LABS: URINE LEUK ESTERASE TRACE (NEGATIVE)
[2017-03-10] MEDS ORDERED: INSULIN (NOVOLOG) ASPART 100 UNITS/ML 10ML VIAL ONE (12:52)
--- NOTE | 2017-03-10 13:31 | PN ---
Progress Note, Physician History of Present Illness: Pt seen and examined at bedside. She complains of diarrhea last night. She still has back pain. - Current Medication List Current Medications: Active Medications Acetaminophen (Tylenol -) 325 mg PO Q6H PRN PRN Reason: FEVER OR PAIN Sodium Chloride (Normal Saline -) 1,000 mls @ 83 mls/hr IV ASDIR TOMÁS Last Admin: 03/10/17 00:00 Dose: 83 mls/hr - Objective Vital Signs: Vital Signs Temperature 97.6 F 03/10/17 05:56 Pulse Rate 99 H 03/10/17 05:56 Respiratory Rate 20 03/10/17 05:56 Blood Pressure 128/83 03/10/17 05:56 O2 Sat by Pulse Oximetry (%) 96 03/08/17 20:20 Constitutional: Yes: Anxious Eyes: Yes: Conjunctiva Clear HENT: Yes: Atraumatic Cardiovascular: Yes: S1, S2 Respiratory: Yes: CTA Bilaterally Gastrointestinal: Yes: Soft Genitourinary: Yes: Incontinence Musculoskeletal: Yes: Back Pain, Muscle Weakness Edema: No Neurological: Yes: Oriented Labs: CBC, BMP 03/10/17 06:00 03/10/17 06:00 - ....Imaging Ultrasound: Report Reviewed Assessment/Plan Current Medications Generic Name Dose Route Start Last Admin Trade Name Freq PRN Reason Stop Dose Admin Acetaminophen 325 mg 03/08/17 18:28 Tylenol - PO Q6H PRN FEVER OR PAIN Sodium Chloride 1,000 mls @ 83 mls/hr 03/08/17 18:30 03/10/17 00:00 Normal Saline - IV 83 mls/hr ASDIR TOMÁS Administration Impression 1. multiple myeloma 2. SHANIA 3. anemia 4. Chol 5. COPD 6. anemia 7. compression fracture 8. 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
--- NOTE | 2017-03-10 14:10 | PN ---
Progress Note (short form) - Note Progress Note: Patient seen and examined Had multiple bouts of diarrhea which are now improved on Feb. Crampy abdominal pains with some distension today which are improved from yesterday. Levaquin has been discontinued --( but only received 2 doses) . Declined immodium. Last Vital Signs Temp Pulse Resp BP Pulse Ox 97.6 F 99 H 20 128/83 96 03/10/17 05:56 03/10/17 05:56 03/10/17 05:56 03/10/17 05:56 03/08/17 20:20 HEENT: SAVANNAH, EOM Intact Oropharynx: No thrush, No mucositis Cor: RSR, No murmurs, No gallops Lungs: Clear to P&A Abd: Soft, Normal bowel sounds, mild distension Ext:No significant edema Skin: No rashes, Integument intact No Tor's CBC, BMP 03/10/17 06:00 03/10/17 06:00 Current Medications Generic Name Dose Route Start Last Admin Trade Name Oscarq PRN Reason Stop Dose Admin Acetaminophen 325 mg 03/08/17 18:28 Tylenol - PO Q6H PRN FEVER OR PAIN Sodium Chloride 1,000 mls @ 60 mls/hr 03/10/17 13:32 Normal Saline - IV ASDIR TOMÁS Impression: Myeloma- not in remission on velcade /decadron- last treatment 03/08 SHANIA- ? hydration , ? steroids , ? myeloma LLL ? infiltrate /effusion/ atelectasis Anemia Abdominal pains_? etiology Plan: Awaiting light chain data, but from December to January , free kappa/free lambda light chains have improved Will obtain GI consult Awaiting MRI RT consulted and will follow up Will need DVT prophylaxis
[2017-03-10] MEDS: SODIUM CHLORIDE 1,000 ML IV SCH ×2 (14:34)
--- NOTE | 2017-03-10 15:03 | PN ---
Progress Note (short form) - Note Progress Note: Radiation Oncology (consult dictated) 81yo woman w multiple myeloma s/p T12 pathologic fx surgical stabilization, velcade/dexa now a/w acute back pain and new compression fx of T10. Agree with MRI spine to further evaluate and r/o epidural tumor/cord compromise. GI eval for recent diarrhea and abdominal pain. Potential role of RT briefly discussed w pt and family. Discussed w Leonila Bello and Mer. Will follow.
--- NOTE | 2017-03-10 16:42 | CONS ---
DATE OF CONSULTATION: 03/10/2017 REFERRING PHYSICIAN: Rhiannon Del Angel MD REASON FOR CONSULTATION: Multiple myeloma with back pain. HISTORY OF PRESENT ILLNESS: The patient is an 81-year-old woman who was diagnosed with multiple myeloma in October 2016, when she presented with altered mental status. She underwent surgical stabilization for a T12 pathologic compression fracture and then underwent rehab. She was admitted recently for an episode of hypercalcemia which was managed and resolved. She has now received about 7 weeks of Velcade and dexamethasone with Dr. Bello's team. She is now admitted for an acute onset of back pain which she states started when she was raising/shrugging her shoulders. There is no radiation to the arms, chest, or legs. X-rays showed possible infiltrate or atelectasis in the left base. She was started on Levaquin. She is followed by the nephrology service for acute renal insufficiency. She developed profuse diarrhea and abdominal pain. Antibiotics were discontinued, and she is now improving. We are now asked to evaluate the patient for possible radiation therapy in light of a new vertebral fracture. PAST MEDICAL HISTORY: COPD, hyperlipidemia, diverticulosis, chronic renal insufficiency, osteoarthritis. PAST SURGICAL HISTORY: As noted above. ALLERGIES: PENICILLIN. CURRENT MEDICATIONS: Lovenox, Levaquin discontinued after 2 doses. 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 She is a never smoker and does not consume alcohol regularly. FAMILY HISTORY: Denies malignancy in the family. REVIEW OF SYSTEMS: Back pain, abdominal pain, and diarrhea. No numbness, tingling, or extremity weakness. PHYSICAL EXAMINATION: General: Very anxious, unable to concentrate on conversation at times, elderly female with daughter and sister at the bedside. Vital Signs: Temperature 97.6, blood pressure 128/83, pulse 99, respiratory rate 20. HEENT: Moist mucous membranes. Anicteric sclerae. Clear oral cavity. No thrush. Neck: No adenopathy. Chest: No palpable mass or tenderness. Abdomen: Soft, moderately distended, nontender on light palpation. Active bowel sounds. Extremities: No peripheral edema. Musculoskeletal: No spine tenderness on palpation. No paraspinal mass. Neurologic: No pronator drift; 5/5 in all 4 extremities. No sensory level though she reports numbness in the thighs. Alert and oriented x3 though concentration is poor at times, probably due to anxiety. RADIOLOGIC DATA: As noted above. IMPRESSION: An 81-year-old woman with multiple myeloma status post surgical stabilization for T12 vertebral fracture and 7 weeks of Velcade and dexamethasone, admitted with acute back pain, probably related to new pathologic fracture of the T10 vertebra. I agree with proceeding with an MRI of the spine to further evaluate and rule out epidural tumor and cord compromise/compression. Most likely, a noncontrast study will be needed due to poor renal function from the myeloma. She will need a GI consult for recent diarrhea and abdominal pain. I briefly discussed the role of palliative radiation therapy for pathologic compression fractures of the spine and potential epidural tumor extension to minimize further neurologic compromise and pain. The patient was seen with Dr. Bello. Thank you for the courtesy of this consultation. BIJU RAYO M.D. [id number] MTDD
[2017-03-10] MEDS ORDERED: LEVOFLOXACIN 250 MG IVPB 50 ML IVPB SCH (18:00)
[2017-03-10 23:38] LABS: URINE CREATININE 48.9 mg/dL (20-320)
[2017-03-11] MEDS: SODIUM CHLORIDE 1,000 ML IV SCH (06:15)
[2017-03-11 07:28] LABS: MCH 30.2 pg (25.7-33.7); MCHC 32.8 g/dl (32.0-36.0); MEAN CELL VOLUME 91.9 fl (80-96); PLATELET COUNT 108 K/MM3 (134-434); RDW 17.7 % (11.6-15.6); WHITE BLOOD COUNT 6.7 K/mm3 (4.0-10.0)
[2017-03-11 07:50] LABS: ALBUMIN 2.6 g/dl (3.4-5.0); ANION GAP 12 (8-16); CALCIUM 7.6 mg/dL (8.5-10.1); CO2 18 mmol/L (21-32); CREATININE 1.9 mg/dL (0.55-1.02); GLUCOSE,RANDOM 66 mg/dL (74-106); MAGNESIUM 2.1 mg/dL (1.8-2.4); SGOT/AST 27 U/L (15-37); SGPT/ALT 17 U/L (12-78)
[2017-03-11 07:52] LABS: ALK PHOS 53 U/L (45-117); BILIRUBIN,TOTAL 0.4 mg/dL (0.2-1.0); TOT PROT 5.8 g/dl (6.4-8.2)
[2017-03-11] MEDS: ENOXAPARIN NA (PORCINE) 30 MG/0.3 ML DISP.SYRIN SQ SCH (09:20)
[2017-03-11 09:43] LABS: URINE APPEARANCE CLOUDY; URINE BILIRUBIN NEGATIVE (NEGATIVE); URINE BLOOD NEGATIVE (NEGATIVE); URINE COLOR LTYELLOW; URINE GLUCOSE (UA) NEGATIVE (NEGATIVE); URINE KETONE NEGATIVE (NEGATIVE); URINE NITRITE NEGATIVE (NEGATIVE); URINE UROBILINOGEN NEGATIVE mg/dL (0.2-1.0)
[2017-03-11 10:04] LABS: PLATELET COMMENT2 NO CLOTTING DETECTED; PLATELET ESTIMATE DECREASED (NORMAL); TOTAL CELLS COUNTED 100
[2017-03-11 10:05] LABS: NUCLEATED RED BLOOD CELL 1 % (0-0); REACTIVE LYMPHOCYTES 8 % (0-80)
[2017-03-11 10:05] LABS: URINE PROTEIN 1+ (NEGATIVE)
[2017-03-11 10:06] LABS: URINE BACTERIA RARE /hpf (NONE SEEN); URINE MUCUS RARE; URINE RBC <1 /hpf (0-3); URINE WBC 8 /hpf (3-5)
--- NOTE | 2017-03-11 11:01 | CON.GI ---
Consult Consult Specialty:: Gastroenterology Referred by:: Dr. Bello Reason for Consultation:: Diarrhea and abdominal distension - History of Present Illness Chief Complaint: Diarrhea and abdominal pain History of Present Illness: 81F is admitted for T10 compression fracture and reports having had 19 bowel movements on 03/09. They were mostly watery but had fragments of formed stool. She also had severe colicky pain. The diarrhea resolved yesterday and she is now left with residual dull aching pain. She attributes the diarrhea to tyrel antibiotic, ? Levaquin. She also reports anorexia although she is willing to eat today. She has never had an EGD or a colonoscopy and tells me that she will not allow for these. She denies FH of colon cancer, polyps and IBD. She denies dysphagia and early satiety but has bloating. She had not had a well formed large BM in a "long time" . - History Source History Provided By: Patient, Family Member Limitations to Obtaining History: No Limitations - Past Medical History Cardio/Vascular: Yes: Hyperlipdemia Pulmonary: Yes: COPD Gastrointestinal: Yes: Constipation, Diverticulosis (sigmoid diverticulitis in ) Renal/: Yes: Renal Inusuff, Other (aj in past) ...: No Heme/Onc: Yes: Anemia (multiple myeloma), Cancer (Multiple myeloma complicated by ARF,hypercalcemia and spinal compression fractures) Musculoskeletal: Yes: Chronic low back pain (laminectomy 11/18/16 for T12 pathologic fracture, now has T10 compression fracture), Osteoarthritis, Other ( T12 pathologic compression fracture requiring spinal surgery 09/12) - Past Surgical History Additional Surgical History: Laminectomy for T12 pathologic fracture 11/18/16 - Alcohol/Substance Use Hx Alcohol Use: No History of Substance Use: reports: None - Smoking History Smoking history: Never smoked Have you smoked in the past 12 months: No - Social History Usual Living Arrangement: With Significant Other () ADL: Family Assistance 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 : [facility] History of 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 ? dementia), CA: Sister (2, one 64 with COPD, one sister is breast cancer survivor), Other: Father ( : 71 pulmonary embolism. COPD), Mother, Sister, Daughter (healthy) Review of Systems - Review of Systems Constitutional: reports: Lethargy, Loss of Appetite, Unintentional Wgt. Loss, Weakness Eyes: reports: No Symptoms HENT: reports: No Symptoms Neck: reports: Stiffness Cardiovascular: reports: No Symptoms Respiratory: reports: No Symptoms Gastrointestinal: reports: Abdominal Pain, Bloating, Constipation, Diarrhea, Nausea Musculoskeletal: reports: Back Pain Neurological: reports: No Symptoms Endocrine: reports: No Symptoms Psychiatric: reports: Anxiety Physical Exam-GI Vital Signs: Vital Signs Temperature 97.8 F 03/11/17 05:43 Pulse Rate 84 03/11/17 05:43 Respiratory Rate 20 03/11/17 05:43 Blood Pressure 103/57 03/11/17 05:43 O2 Sat by Pulse Oximetry (%) 94 L 03/10/17 21:00 CBC,CMP WBC 6.7 K/mm3 (4.0-10.0) D 03/11/17 06:00 RBC 2.69 M/mm3 (3.60-5.2) L D 03/11/17 06:00 Hgb 8.1 GM/dL (10.7-15.3) L D 03/11/17 06:00 Hct 24.7 % (32.4-45.2) L D 03/11/17 06:00 MCV 91.9 fl (80-96) 03/11/17 06:00 MCH 30.2 pg (25.7-33.7) 03/11/17 06:00 MCHC 32.8 g/dl (32.0-36.0) 03/11/17 06:00 RDW 17.7 % (11.6-15.6) H 03/11/17 06:00 Plt Count 108 K/MM3 (134-434) L D 03/11/17 06:00 MPV 7.0 fl (7.5-11.1) L 03/11/17 06:00 Total Counted 100 03/11/17 06:00 Neutrophils % No Result Required. 03/11/17 06:00 Neutrophils % (Manual) 56 % (42.8-82.8) 03/11/17 06:00 Band Neuts % (Manual) 6 % (0-10) D 03/11/17 06:00 Lymphocytes % No Result Required. 03/11/17 06:00 Lymphocytes % (Manual) 20 % (8-40) 03/11/17 06:00 Monocytes % 11.6 % (3.8-10.2) H D 03/08/17 11:00 Monocytes % (Manual) 10 % (3.8-10.2) 03/11/17 06:00 Eosinophils % 0.2 % (0-4.5) D 03/08/17 11:00 Basophils % 0.6 % (0-2.0) 03/08/17 11:00 Nucleated RBC % 1 % (0-0) H 03/11/17 06:00 Platelet Estimate Decreased (NORMAL) 03/11/17 06:00 Platelet Comment No clumping noted 03/11/17 06:00 Platelet Comment No clotting detected 03/11/17 06:00 Sodium 144 mmol/L (136-145) 03/11/17 06:00 Potassium 3.8 mmol/L (3.5-5.1) 03/11/17 06:00 Chloride 114 mmol/L (98-107) H 03/11/17 06:00 Carbon Dioxide 18 mmol/L (21-32) L 03/11/17 06:00 Anion Gap 12 (8-16) 03/11/17 06:00 BUN 26 mg/dL (7-18) H 03/11/17 06:00 Creatinine 1.9 mg/dL (0.55-1.02) H 03/11/17 06:00 Creat Clearance w eGFR 25.31 (>60) 03/11/17 06:00 Random Glucose 66 mg/dL (74-106) L D 03/11/17 06:00 Calcium 7.6 mg/dL (8.5-10.1) L 03/11/17 06:00 Phosphorus 3.4 mg/dL (2.5-4.9) 03/09/17 06:00 Magnesium 2.1 mg/dL (1.8-2.4) 03/11/17 06:00 Total Bilirubin 0.4 mg/dL (0.2-1.0) 03/11/17 06:00 Direct Bilirubin 0.1 mg/dL (0.0-0.2) 03/08/17 11:00 AST 27 U/L (15-37) D 03/11/17 06:00 ALT 17 U/L (12-78) 03/11/17 06:00 Alkaline Phosphatase 53 U/L (45-117) D 03/11/17 06:00 Serum Total Protein 7.5 g/dL (6.0-8.5) 03/08/17 11:00 Total Protein 5.8 g/dl (6.4-8.2) L 03/11/17 06:00 Albumin 2.6 g/dl (3.4-5.0) L 03/11/17 06:00 Globulin 4.2 g/dL (2.2-3.9) H 03/08/17 11:00 Albumin/Globulin Ratio 0.8 (0.7-1.7) 03/08/17 11:00 Wzmgj-9-Aqgourwlo 0.3 g/dL (0.0-0.4) 03/08/17 11:00 Xhkbp-7-Yrcfksics 1.0 g/dL (0.4-1.0) 03/08/17 11:00 Beta Globulins 0.8 g/dL (0.7-1.3) 03/08/17 11:00 Gamma Globulins 2.1 g/dL (0.4-1.8) H 03/08/17 11:00 Current Medications Generic Name Dose Route Start Last Admin Trade Name Freq PRN Reason Stop Dose Admin Acetaminophen 325 mg 03/08/17 18:28 Tylenol - PO Q6H PRN FEVER OR PAIN Enoxaparin Sodium 30 mg 03/11/17 10:00 03/11/17 09:20 Lovenox - SQ 30 mg DAILY TOMÁS Administration Sodium Chloride 1,000 mls @ 60 mls/hr 03/10/17 13:32 03/11/17 06:15 Normal Saline - IV 60 mls/hr ASDIR TOMÁS Administration Constitutional: Yes: Anxious Eyes: Yes: Conjunctiva Clear HENT: Yes: Normocephalic Neck: Yes: Supple Cardiovascular: Yes: Regular Rate and Rhythm Respiratory: Yes: CTA Bilaterally Gastrointestinal Inspection: Yes: Distention ...Auscultate: Yes: Hypoactive Bowel Sounds ...Palpate: Yes: Soft, Other (no localizing tenderness, no peritoneal signs) ...Rectal Exam: Yes: Guaiac Negative, Sphincter Tone Normal, Other (hard carloz stools in rectum) Edema: No Labs: CBC, BMP 03/11/17 06:00 03/11/17 06:00 Assessment/Plan I have explained to Rosalia Encarnacion and her daughter that her diarrhea is paradoxical and that her abdominal distension and pain is due to a fecal impaction. I have advised a course of Miralax TID to lavage her impaction and then a continued daily course. She and he daughter told me that they understood and agree with the plan. Ideally she should undergo a colonoscopy to exclude an obstructing colon cancer but she has refused.
[2017-03-11] MEDS: POLYETHYLENE GLYCOL 3350 119 GM BTL PO SCH ×2 (13:28→21:53)
--- NOTE | 2017-03-11 14:21 | PN ---
Progress Note (short form) - Note Progress Note: Progress Note (short form) - Note Progress Note: Very similar to yesterday except has slightly less abdominal pain Patient seen and examined Had multiple bouts of diarrhea which are now improved on Feb. Crampy abdominal pains with some distension today which are improved from yesterday. Levaquin has been discontinued --( but only received 2 doses) . Declined immodium. Vital Signs Period Temp Pulse Resp BP Sys/Saucedo Pulse Ox Last 24 Hr 97.8 F-98.3 F 84-105 20-20 101-108/54-64 94-94 HEENT: SAVANNA[place], EOM Intact Oropharynx: No thrush, No mucositis Cor: RSR, No murmurs, No gallops Lungs: Clear to P&A Abd: Soft, no guarding, has tenderness on deep palpation Ext:No significant edema Skin: No rashes, Integument intact CBC, BMP 03/11/17 06:00 03/11/17 06:00 Active Medications Generic Name Dose Route Start Last Admin Trade Name Oscarq PRN Reason Stop Dose Admin Acetaminophen 325 mg 03/08/17 18:28 Tylenol - PO Q6H PRN FEVER OR PAIN Enoxaparin Sodium 30 mg 03/11/17 10:00 03/11/17 09:20 Lovenox - SQ 30 mg DAILY TOMÁS Administration Sodium Chloride 1,000 mls @ 60 mls/hr 03/10/17 13:32 03/11/17 06:15 Normal Saline - IV 60 mls/hr ASDIR TOMÁS Administration Polyethylene Glycol 17 gm 03/11/17 14:00 03/11/17 13:28 Miralax (For Daily Use) - PO 17 gm TID TOMÁS Administration Impression: Myeloma- not in remission on velcade /decadron- last treatment 03/08 SHANIA- ? hydration , ? steroids , ? myeloma LLL ? infiltrate /effusion/ atelectasis Anemia Abdominal pains_? etiology Plan: Awaiting light chain data, but from December to January , free kappa/free lambda light chains have improved Will obtain GI consult Unclear cause of these crampy abdominal pains (no hematochezia or mendoza) and difficult to distinguish further Awaiting MRI RT consulted and will follow up Will need DVT prophylaxis
--- NOTE | 2017-03-11 15:34 | PN ---
Progress Note, Physician History of Present Illness: Pt seen and examined at bedside. She is awake and is anxious. - Current Medication List Current Medications: Active Medications Acetaminophen (Tylenol -) 325 mg PO Q6H PRN PRN Reason: FEVER OR PAIN Enoxaparin Sodium (Lovenox -) 30 mg SQ DAILY TOMÁS Last Admin: 03/11/17 09:20 Dose: 30 mg Sodium Chloride (Normal Saline -) 1,000 mls @ 60 mls/hr IV ASDIR TOMÁS Last Admin: 03/11/17 06:15 Dose: 60 mls/hr Polyethylene Glycol (Miralax (For Daily Use) -) 17 gm PO TID TOMÁS Last Admin: 03/11/17 13:28 Dose: 17 gm - Objective Vital Signs: Vital Signs Temperature 98.5 F 03/11/17 14:20 Pulse Rate 93 H 03/11/17 14:20 Respiratory Rate 20 03/11/17 14:20 Blood Pressure 117/64 03/11/17 14:20 O2 Sat by Pulse Oximetry (%) 94 L 03/11/17 09:00 Constitutional: Yes: Anxious Eyes: Yes: Conjunctiva Clear HENT: Yes: Atraumatic Neck: Yes: Supple Cardiovascular: Yes: S1, S2 Respiratory: Yes: CTA Bilaterally Gastrointestinal: Yes: Soft Genitourinary: Yes: Incontinence Musculoskeletal: Yes: Muscle Weakness Edema: No Neurological: Yes: Oriented Labs: CBC, BMP 03/11/17 06:00 03/11/17 06:00 Assessment/Plan Current Medications Generic Name Dose Route Start Last Admin Trade Name Freq PRN Reason Stop Dose Admin Acetaminophen 325 mg 03/08/17 18:28 Tylenol - PO Q6H PRN FEVER OR PAIN Enoxaparin Sodium 30 mg 03/11/17 10:00 03/11/17 09:20 Lovenox - SQ 30 mg DAILY TOMÁS Administration Sodium Chloride 1,000 mls @ 60 mls/hr 03/10/17 13:32 03/11/17 06:15 Normal Saline - IV 60 mls/hr ASDIR TOMÁS Administration Polyethylene Glycol 17 gm 03/11/17 14:00 03/11/17 13:28 Miralax (For Daily Use) - PO 17 gm TID TOMÁS Administration 03/10/17 03/10/17 03/11/17 06:00 23:09 09:15 Urine Protein 1+ H Ur Random Sodium Urine Creatinine Protein/Creatinin Ratio 5.79 IgG Free [place] LC, Quant Pending Free Lambda LC, Quant Pending Free [place]/Lambda Ratio Pending Impression 1. multiple myeloma 2. SHANIA 3. anemia 4. Chol 5. COPD 6. anemia 7. compression fracture 8. small pleural effusion Plan - renal function starting to improve - likely renal involvement from myeloma - repeat labs in am - cont fluids - check upep Dr Soto
[2017-03-11 18:32] LABS: URINE LEUK ESTERASE Negative (NEGATIVE)
[2017-03-12] MEDS: SODIUM CHLORIDE 1,000 ML IV SCH ×2 (01:40→17:33)
[2017-03-12] MEDS: POLYETHYLENE GLYCOL 3350 119 GM BTL PO SCH ×2 (06:50→21:20)
[2017-03-12 08:10] LABS: ALBUMIN 2.7 g/dl (3.4-5.0); ALK PHOS 53 U/L (45-117); ANION GAP 9 (8-16); BILIRUBIN,TOTAL 0.5 mg/dL (0.2-1.0); CALCIUM 7.6 mg/dL (8.5-10.1); CO2 19 mmol/L (21-32); CREATININE 1.8 mg/dL (0.55-1.02); GLUCOSE,RANDOM 68 mg/dL (74-106); SGOT/AST 24 U/L (15-37); SGPT/ALT 15 U/L (12-78); TOT PROT 5.9 g/dl (6.4-8.2)
[2017-03-12] MEDS: ENOXAPARIN NA (PORCINE) 30 MG/0.3 ML DISP.SYRIN SQ SCH (09:58)
--- NOTE | 2017-03-12 10:42 | PN ---
GI Progress Note Subjective: GI NOte: Had two BMs after Miralax yesterday then refused any more. Tolerated breakfast today and feels less distended - Objective Vital Signs: Vital Signs Temperature 97.7 F 03/12/17 06:14 Pulse Rate 88 03/12/17 06:14 Respiratory Rate 20 03/12/17 06:14 Blood Pressure 109/58 03/12/17 06:14 O2 Sat by Pulse Oximetry (%) 94 L 03/11/17 09:00 Constitutional: Anxious ...Auscultate: Yes: Hypoactive Bowel Sounds ...Palpate: Yes: Soft, Other (nontender) ...Percussion: Yes: Tympanitic Labs: CBC, BMP 03/11/17 06:00 03/12/17 06:15 Laboratory Tests 03/12/17 06:15 BUN 23 H Creatinine 1.8 H Total Bilirubin 0.5 D AST 24 ALT 15 Alkaline Phosphatase 53 Albumin 2.7 L Assessment/Plan Paradoxical diarrhea and abdominal distension with fecal impaction due to sedentary state. I will decrease Miralax to BID to lavage her impaction.
--- NOTE | 2017-03-12 13:55 | PN ---
Progress Note (short form) - Note Progress Note: Progress Note (short form) - Note Progress Note: Her abdominal pain is slowly decreasing and getting out of bed. She is depressed she is not improving as well as she would have thought She wants to eat some potatoes as well. Patient seen and examined Vital Signs Period Temp Pulse Resp BP Sys/Saucedo Pulse Ox Last 24 Hr 97.7 F-98.5 F 88-97 20-20 109-117/58-68 97 HEENT: S[place]NA[place], EOM Intact Oropharynx: No thrush, No mucositis Cor: RSR, No murmurs, No gallops Lungs: Clear to P&A Abd: Soft, no guarding, has tenderness on deep palpation Ext:No significant edema Skin: No rashes, Integument intact CBC, BMP 03/11/17 06:00 03/12/17 06:15 Current Medications Generic Name Dose Route Start Last Admin Trade Name Freq PRN Reason Stop Dose Admin Acetaminophen 325 mg 03/08/17 18:28 Tylenol - PO Q6H PRN FEVER OR PAIN Enoxaparin Sodium 30 mg 03/11/17 10:00 03/12/17 09:58 Lovenox - SQ 30 mg DAILY TOMÁS Administration Sodium Chloride 1,000 mls @ 60 mls/hr 03/10/17 13:32 03/12/17 01:40 Normal Saline - IV 60 mls/hr ASDIR TOMÁS Administration Polyethylene Glycol 17 gm 03/12/17 22:00 Miralax (For Daily Use) - PO BID TOMÁS Impression: Myeloma- not in remission on velcade /decadron- last treatment 03/08 SHANIA- ? hydration , ? steroids , ? myeloma LLL ? infiltrate /effusion/ atelectasis Anemia Abdominal pains_? etiology Plan: Awaiting light chain data Doing ok a/w MRI results renal diet with potatoes
--- NOTE | 2017-03-12 17:27 | PN ---
Progress Note, Physician History of Present Illness: Pt seen and examined at bedside. She appears anxious. - Current Medication List Current Medications: Active Medications Acetaminophen (Tylenol -) 325 mg PO Q6H PRN PRN Reason: FEVER OR PAIN Enoxaparin Sodium (Lovenox -) 30 mg SQ DAILY TOMÁS Last Admin: 03/12/17 09:58 Dose: 30 mg Sodium Chloride (Normal Saline -) 1,000 mls @ 60 mls/hr IV ASDIR TOMÁS Last Admin: 03/12/17 01:40 Dose: 60 mls/hr Polyethylene Glycol (Miralax (For Daily Use) -) 17 gm PO BID TOMÁS - Objective Vital Signs: Vital Signs Temperature 98.0 F 03/12/17 14:23 Pulse Rate 96 H 03/12/17 14:23 Respiratory Rate 20 03/12/17 14:23 Blood Pressure 112/59 03/12/17 14:23 O2 Sat by Pulse Oximetry (%) 97 03/12/17 09:00 Constitutional: Yes: Anxious Eyes: Yes: Conjunctiva Clear HENT: Yes: Atraumatic Neck: Yes: Supple Cardiovascular: Yes: S1, S2 Respiratory: Yes: CTA Bilaterally Gastrointestinal: Yes: Soft Genitourinary: Yes: Incontinence Musculoskeletal: Yes: Other (back pain) Edema: No Neurological: Yes: Oriented Psychiatric: Yes: Oriented Labs: CBC, BMP 03/11/17 06:00 03/12/17 06:15 Assessment/Plan Current Medications Generic Name Dose Route Start Last Admin Trade Name Freq PRN Reason Stop Dose Admin Acetaminophen 325 mg 03/08/17 18:28 Tylenol - PO Q6H PRN FEVER OR PAIN Enoxaparin Sodium 30 mg 03/11/17 10:00 03/12/17 09:58 Lovenox - SQ 30 mg DAILY TOMÁS Administration Sodium Chloride 1,000 mls @ 60 mls/hr 03/10/17 13:32 03/12/17 01:40 Normal Saline - IV 60 mls/hr ASDIR TOMÁS Administration Polyethylene Glycol 17 gm 03/12/17 22:00 Miralax (For Daily Use) - PO BID TOMÁS Impression 1. multiple myeloma 2. SHANIA 3. anemia 4. Chol 5. COPD 6. anemia 7. compression fracture 8. small pleural effusion Plan - cont fluids - renal function is improving - oncology input appreciated - repeat labs in am - will follow - follow upep - likely renal involvement from myeloma Dr Soto
[2017-03-13] MEDS: SODIUM CHLORIDE 1,000 ML IV SCH (06:00)
[2017-03-13 07:54] LABS: ANION GAP 10 (8-16); CALCIUM 7.2 mg/dL (8.5-10.1); CO2 18 mmol/L (21-32); GLUCOSE,RANDOM 66 mg/dL (74-106)
[2017-03-13] MEDS: POLYETHYLENE GLYCOL 3350 119 GM BTL PO SCH ×2 (10:17→21:05)
[2017-03-13] MEDS: ENOXAPARIN NA (PORCINE) 30 MG/0.3 ML DISP.SYRIN SQ SCH (10:17)
--- NOTE | 2017-03-13 14:13 | PN ---
Progress Note, Physician History of Present Illness: Pt seen and examined at bedside. She appears comfortable. She denies shortness of breath. - Current Medication List Current Medications: Active Medications Acetaminophen (Tylenol -) 325 mg PO Q6H PRN PRN Reason: FEVER OR PAIN Enoxaparin Sodium (Lovenox -) 30 mg SQ DAILY TOMÁS Last Admin: 03/13/17 10:17 Dose: Not Given Sodium Chloride (Normal Saline -) 1,000 mls @ 60 mls/hr IV ASDIR TOMÁS Last Admin: 03/13/17 06:00 Dose: 60 mls/hr Polyethylene Glycol (Miralax (For Daily Use) -) 17 gm PO BID TOMÁS Last Admin: 03/13/17 10:17 Dose: 17 grams - Objective Vital Signs: Vital Signs Temperature 98 F 03/13/17 10:15 Pulse Rate 84 03/13/17 10:15 Respiratory Rate 18 03/13/17 10:15 Blood Pressure 127/71 03/13/17 10:15 O2 Sat by Pulse Oximetry (%) 95 03/13/17 10:15 Constitutional: Yes: Calm Eyes: Yes: Conjunctiva Clear HENT: Yes: Atraumatic Neck: Yes: Supple Cardiovascular: Yes: S1, S2 Respiratory: Yes: CTA Bilaterally Gastrointestinal: Yes: Soft Genitourinary: Yes: Incontinence Musculoskeletal: Yes: Back Pain, Muscle Weakness Edema: No Neurological: Yes: Oriented Psychiatric: Yes: Oriented Labs: CBC, BMP 03/11/17 06:00 03/13/17 05:35 Assessment/Plan Current Medications Generic Name Dose Route Start Last Admin Trade Name Freq PRN Reason Stop Dose Admin Acetaminophen 325 mg 03/08/17 18:28 Tylenol - PO Q6H PRN FEVER OR PAIN Enoxaparin Sodium 30 mg 03/11/17 10:00 03/13/17 10:17 Lovenox - SQ Not Given DAILY TOMÁS Sodium Chloride 1,000 mls @ 60 mls/hr 03/10/17 13:32 03/13/17 06:00 Normal Saline - IV 60 mls/hr ASDIR TOMÁS Administration Polyethylene Glycol 17 gm 03/12/17 22:00 03/13/17 10:17 Miralax (For Daily Use) - PO 17 grams BID TOMÁS Administration Laboratory Tests 03/10/17 09:15 Urine Total Protein Pending Urine PEP Interpret Pending Impression 1. multiple myeloma 2. SHANIA 3. anemia 4. Chol 5. COPD 6. anemia 7. compression fracture 8. small pleural effusion Plan - cont fluids - change fluids to 1/2 ns - repeat labs in am - discussed with pts daughter - MRI results are not back yet - will follow - follow upep - likely renal involvement from myeloma Dr Soto
--- NOTE | 2017-03-13 15:50 | PN ---
Progress Note (short form) - Note Progress Note: PAtient seen and examined c/o back pain Last Vital Signs Temp Pulse Resp BP Pulse Ox 98 F 84 18 127/71 95 03/13/17 10:15 03/13/17 10:15 03/13/17 10:15 03/13/17 10:15 03/13/17 10:15 Cor: RSR, No murmurs, No gallops Lungs: Clear to P&A Abd: Soft, Normal bowel sounds, No organomegaly Ext:No significant edema Abnormal Lab Results 03/13/17 05:35 Chloride 116 H Carbon Dioxide 18 L BUN 22 H Creatinine 2.0 H Random Glucose 66 L Calcium 7.2 L Active Medications Generic Name Dose Route Start Last Admin Trade Name Freq PRN Reason Stop Dose Admin Acetaminophen 325 mg 03/08/17 18:28 Tylenol - PO Q6H PRN FEVER OR PAIN Enoxaparin Sodium 30 mg 03/11/17 10:00 03/13/17 10:17 Lovenox - SQ Not Given DAILY TOMÁS Sodium Chloride 1,000 mls @ 70 mls/hr 03/13/17 14:15 1/2 Normal Saline IV ASDIR TOMÁS Polyethylene Glycol 17 gm 03/12/17 22:00 03/13/17 10:17 Miralax (For Daily Use) - PO 17 grams BID TOMÁS Administration A/P 81 y/o patient with myeloma, admitted with back pain MRI T/L spine is pending Also SHANIA f/u MRI concern for progressing myeloma based on light chains Neurosurgery consult
[2017-03-13] MEDS: SODIUM CHLORIDE 0.45% 1,000 ML IV SCH (17:18)
--- NOTE | 2017-03-13 18:44 | PN ---
Progress Note (short form) - Note Progress Note: NEUROSURGERY CONSULT DICTATED Pt examined History obtained from pt and family 10 day h/o mid back pain S/p posterior T11-L1 fusion/stabilization for T12 fx in October at [facility] PE: AF, VSS HEENT- NC/AT; neck- supple; Cor- RR; Lungs- CTA B except decreased BS at bases; Abd- benign, + BS; Ext- no sign of DVT CN- intact; Motor- 4+/5 B UE/LE; Sensation- intact LT; DTR- hyporeflexic; Back- tender mid and lower T spine; Incision closed LS spine MRI (prelim)- FSE and T2 mild hyperintensity of sacrum and ilium; L4-5 spondylolisthesis with lateral recess stenosis T spine MRI (prelim)- epidural fibrosis T12; pedicle screw fixation T11-L1; no cord compression; T10 and T8 chronic appearing mild compression deformity with no significant retropulsion; minimal edema Cr 2.0 BUN 22 Pain meds Pain management consult and f/u If persistent pain can consider vertebroplasty or kyphoplasty though adjacent level fx incidences may be slightly increased lata in face of T10 and T8 compression deformity next to the T11-L1 fusion/instrumentation Medical tx for osteoporosis complicated by MM Further surgery not recommended at this time D/w pt and family
[2017-03-14 08:11] LABS: ANION GAP 8 (8-16); CALCIUM 7.4 mg/dL (8.5-10.1); CO2 19 mmol/L (21-32); CREATININE 2.3 mg/dL (0.55-1.02); GLUCOSE,RANDOM 72 mg/dL (74-106)
[2017-03-14] MEDS: POLYETHYLENE GLYCOL 3350 119 GM BTL PO SCH ×2 (09:57→22:15)
[2017-03-14] MEDS: ENOXAPARIN NA (PORCINE) 30 MG/0.3 ML DISP.SYRIN SQ SCH (09:57)
--- NOTE | 2017-03-14 16:02 | CONS ---
DATE OF CONSULTATION: 03/13/2017 CHIEF COMPLAINT: Increasing mid-back pain. HISTORY OF PRESENT ILLNESS: The patient is an 81-year-old right-handed female with history of multiple myeloma and osteoporosis, who reportedly had sustained a fracture at T12 a few months back. She underwent posterior thoracic laminectomy and fusion from T11 to L1 with instrumentation at the time. The patient stated that she never had a bone density study done. She also carries a diagnosis of multiple myeloma and was started on treatment a couple months ago. About 10 days ago, she was bending forward and felt a pop in her back. The daughter stated over the phone that the pain was above her prior surgery. She denied sciatica. She has no new bowel or bladder dysfunction. She feels weak and has difficulty moving around because of the pain. Her pain has not changed significantly over the past 7-10 days or so. PAST MEDICAL HISTORY: Significant for multiple myeloma and renal insufficiency , as well as T11-L1 fracture and osteoporosis. CURRENT MEDICATIONS: Include Tylenol, Lovenox, MiraLAX. ALLERGIES: ASPARTAME, LATEX, and PENICILLIN. SOCIAL HISTORY: She does not smoke or drink. She is retired. She lives at home with her family. REVIEW OF SYSTEMS: Otherwise negative for other major constitutional, head and neck, cardiovascular, pulmonary, gastrointestinal, genitourinary, endocrinologic, neurological, and psychological problems except for the above. PHYSICAL EXAMINATION: Vital Signs: Temperature is 98.1, blood pressure is 111/64, with pulse rate of 91, O2 saturation is 95% on room air. HEENT: Examination revealed her to be normocephalic, atraumatic, anicteric. Neck: Supple with no tenderness. CORONARY: Examination demonstrated regular rhythm. Lungs: Clear except for decreased breath sounds at the bases. Abdomen: Benign. Extremities: Examination shows no obvious signs of DVT. Neurologic: She is awake and alert, oriented x3. She has decreased hearing bilaterally. Cranial nerves examination is intact 2-12. Motor examination reveals 4+/5 strength in bilateral upper and lower extremities, limited by pain in her back. Sensory examination is intact to light touch. Deep tendon reflexes are hyporeflexive throughout. There is no pathological long tract sign. Her gait is not tested for safety reasons. Back: Tenderness in the mid and lower thoracic spine. Her posterior thoracic incision is closed, and there are no obvious signs of infection. LABORATORY EXAMINATION: White blood cell count to be 6.7, previously was 14.9. Hemoglobin is 8.1, hematocrit is 24.7, platelet count is 108,000. Serum sodium is 144 and potassium 4.0. BUN is 22 and creatinine 12.0 respectively. Urinalysis is negative except for RBC of less than 1 and WBC of 8. Random protein was 283. MRI of the thoracic and lumbar spine was reviewed. Below are the preliminary findings. There appears to be mild T10 vertebral compression deformity as well as mild T8 vertebral compression deformity. There is prior T11 to L1 instrumentation with what appears to be a chronic T12 compression fracture. There is also evidence of posterior laminectomy. There is no bony retropulsion or spinal cord impingement. Lumbar spine MRI demonstrated hyperintensity on the fast spin echo and T2 weighted images of the sacrum and the ilium. There is L4-5 spondylolisthesis with lateral recess and foraminal stenosis. There is multi-level facet disease and spondylosis. There are also signs of osteopenia throughout. IMPRESSION: 1. Multiple myeloma with chronic renal failure by report. 2. History of T12 osteoporotic fracture status post Chart reviewed. T11-L1 instrumentation and stabilization. 3. T10 greater than T8 vertebral compression deformity consistent with osteoporotic compression fracture with or without myeloma. RECOMMENDATIONS: The patient presents with increasing mid-back pain for 10 days ' duration. MRI demonstrated mild compression deformities of T10 and T8 vertebrae. She also has generalized kyphosis as well. She had sustained a prior T12 fracture, had undergone surgical stabilization about 3-1/2 months earlier at [facility]. Because of the prior fusion, the adjacent levels are somewhat more susceptible to osteoporotic fracture. If the pain can be controlled medically by Pain Management and medication, that will be the preferred route. Otherwise, she could be a candidate for vertebroplasty or kyphoplasty for the T10 fracture. On the other hand, doing so could also increase the incidence of adjacent level fracture in face of osteoporosis. The osteoporosis will continue to be a problem, but medical treatments complicated by her underlying diagnosis of multiple myeloma in terms of the pharmacological agent effect for the treatment of osteoporosis. The above was discussed with the patient and the family at bedside. All questions were answered. No neurosurgical intervention is recommended at this time. There is no significant thoracic spinal cord impingement or any kind. All questions were answered. SHERYL PRECIADO M.D. DARIUS/[id number] MTDJarod
[2017-03-14 16:32] LABS: ALBUMIN FOR UPE 2.6 % (.); GAMMA GLOBULIN % 83.6 % (.)
--- NOTE | 2017-03-14 16:40 | PN ---
Progress Note (short form) - Note Progress Note: Radiation Oncology Reports back pain on Tylenol. Denies numbness, incontinence, focal arm/leg weakness. Does report generalized weakness. Exam: nonfocal without sensory level, point tenderness at T10 level. MRI T-L spine without contrast reviewed with Radiology. 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 Impression: MM with back pain from interval pathologic fx assoc w epidural tumor. Dr. Martin's consult noted and appreciated. Not a candidate for surgical intervention. Palliative RT is recommended to help improve pain control and fracture healing, minimize epidural tumor progression and sequela/neurologic deficits. Will need to consider decadron with RT. Would consider kyphoplasty if feasible prior to RT to stabilize T10 fx, discussed with Dr. Cisse. Discussed with pt and dtr Sarahy over phone. They will discuss with other family and decide on tx. Discussed with Dr. Del Angel. Systemic therapy to be further considered. Will follow up.
--- NOTE | 2017-03-14 17:03 | PN ---
Progress Note, Physician History of Present Illness: Pt seen and examined at bedside. She is awake and alert. She is anxious today. - Current Medication List Current Medications: Active Medications Acetaminophen (Tylenol -) 325 mg PO Q6H PRN PRN Reason: FEVER OR PAIN Dexamethasone Sodium Phosphate (Decadron Injection -) 4 mg IVPB Q6H TOMÁS Enoxaparin Sodium (Lovenox -) 30 mg SQ DAILY TOMÁS Last Admin: 03/14/17 09:57 Dose: Not Given Sodium Chloride (1/2 Normal Saline) 1,000 mls @ 70 mls/hr IV ASDIR TOMÁS Last Admin: 03/13/17 17:18 Dose: 70 mls/hr Polyethylene Glycol (Miralax (For Daily Use) -) 17 gm PO BID TOMÁS Last Admin: 03/14/17 09:57 Dose: 17 grams - Objective Vital Signs: Vital Signs Temperature 98.1 F 03/14/17 15:21 Pulse Rate 98 H 03/14/17 15:21 Respiratory Rate 20 03/14/17 15:21 Blood Pressure 123/69 03/14/17 15:21 O2 Sat by Pulse Oximetry (%) 96 03/14/17 11:15 Constitutional: Yes: Calm Eyes: Yes: Conjunctiva Clear HENT: Yes: Atraumatic Neck: Yes: Supple Cardiovascular: Yes: S1, S2 Respiratory: Yes: CTA Bilaterally Gastrointestinal: Yes: Soft Genitourinary: Yes: Incontinence Musculoskeletal: Yes: Muscle Weakness Edema: No Neurological: Yes: Oriented Psychiatric: Yes: Agitated Labs: CBC, BMP 03/11/17 06:00 03/14/17 06:00 Assessment/Plan Current Medications Generic Name Dose Route Start Last Admin Trade Name Freq PRN Reason Stop Dose Admin Acetaminophen 325 mg 03/08/17 18:28 Tylenol - PO Q6H PRN FEVER OR PAIN Dexamethasone Sodium Phosphate 4 mg 03/14/17 16:15 Decadron Injection - IVPB Q6H TOMÁS Enoxaparin Sodium 30 mg 03/11/17 10:00 03/14/17 09:57 Lovenox - SQ Not Given DAILY [facility] Sodium Chloride 1,000 mls @ 70 mls/hr 03/13/17 14:15 03/13/17 17:18 1/2 Normal Saline IV 70 mls/hr ASDIR TOMÁS Administration Polyethylene Glycol 17 gm 03/12/17 22:00 03/14/17 09:57 Miralax (For Daily Use) - PO 17 grams BID TOMÁS Administration Impression 1. multiple myeloma 2. SHANIA 3. anemia 4. Chol 5. COPD 6. anemia 7. compression fracture 8. 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
[2017-03-14] MEDS: DEXAMETHASONE SOD PHOSPHATE 20 MG/5 ML VIAL IVPB SCH ×2 (19:03→22:15)
[2017-03-14] MEDS: SODIUM CHLORIDE 0.45% 1,000 ML IV SCH ×2 (19:03→22:18)
--- NOTE | 2017-03-14 19:10 | PN ---
Progress Note (short form) - Note Progress Note: Patient seen and examined. Reviewed prior notes from N.S., RT,renal. Updated family on current status Last Vital Signs Temp Pulse Resp BP Pulse Ox 98.1 F 98 H 20 123/69 96 03/14/17 15:21 03/14/17 15:21 03/14/17 15:21 03/14/17 15:21 03/14/17 11:15 HEENT: SAVANNAH, EOM Intact Oropharynx: No thrush, No mucositis Cor: RSR, No murmurs, No gallops Lungs: Clear to P&A Abd: Soft, Normal bowel sounds, No organomegaly,mild distension Ext:No significant edema Skin: No rashes, Integument intact CBC, BMP 03/11/17 06:00 03/14/17 06:00 Current Medications Generic Name Dose Route Start Last Admin Trade Name Freq PRN Reason Stop Dose Admin Acetaminophen 325 mg 03/08/17 18:28 Tylenol - PO Q6H PRN FEVER OR PAIN Dexamethasone Sodium Phosphate 4 mg 03/14/17 16:15 Decadron Injection - IVPB Q6H TOMÁS Enoxaparin Sodium 30 mg 03/11/17 10:00 03/14/17 09:57 Lovenox - SQ Not Given DAILY [facility]OM[facility] Sodium Chloride 1,000 mls @ 70 mls/hr 03/13/17 14:15 03/13/17 17:18 1/2 Normal Saline IV 70 mls/hr ASDIR TOMÁS Administration Polyethylene Glycol 17 gm 03/12/17 22:00 03/14/17 09:57 Miralax (For Daily Use) - PO 17 grams BID TOMÁS Administration Impression: Multiple myeloma - not in remission T-10 compression with epidural disease Multiple compression Fx of spine Anemia- ?marrow infiltration SHANIA/CKD-suspect light chain deposition in view of significant increase in L.C. over past month. Plan: Discuss management with [facility] Consideration for kyphoplasty RT To decide upon systemic therapy Spent > 30 minutes with patient and daughter in discussion ?JACOB/FE++ for anemia per renal protocol.
[2017-03-15 07:34] LABS: MCH 30.4 pg (25.7-33.7); MCHC 33.4 g/dl (32.0-36.0); MEAN CELL VOLUME 90.8 fl (80-96); MEAN PLT VOLUME 7.2 fl (7.5-11.1); PLATELET COUNT 94 K/MM3 (134-434); WHITE BLOOD COUNT 7.9 K/mm3 (4.0-10.0)
[2017-03-15 08:10] LABS: ALBUMIN 2.6 g/dl (3.4-5.0); ALK PHOS 52 U/L (45-117); ANION GAP 10 (8-16); BILIRUBIN,TOTAL 0.4 mg/dL (0.2-1.0); CALCIUM 7.6 mg/dL (8.5-10.1); CO2 20 mmol/L (21-32); CREATININE 2.1 mg/dL (0.55-1.02); GLUCOSE,RANDOM 72 mg/dL (74-106); SGOT/AST 30 U/L (15-37); SGPT/ALT 13 U/L (12-78); TOT PROT 5.9 g/dl (6.4-8.2)
[2017-03-15 09:39] LABS: METAMYELOCYTE 4 % (0-2); MYELOCYTE 2 % (0-2); PLATELET ESTIMATE DECREASED (NORMAL); TOTAL CELLS COUNTED 100
[2017-03-15 09:41] LABS: PROMYELOCYTE 1 % (0-2)
[2017-03-15] MEDS: POLYETHYLENE GLYCOL 3350 119 GM BTL PO SCH ×3 (11:06→22:45)
[2017-03-15] MEDS: DEXAMETHASONE SOD PHOSPHATE 4 MG/1 ML VIAL IVPB SCH ×3 (11:16→22:45)
[2017-03-15] MEDS: ENOXAPARIN NA (PORCINE) 30 MG/0.3 ML DISP.SYRIN SQ SCH (11:16)
[2017-03-15] MEDS: SODIUM CHLORIDE 0.45% 1,000 ML IV SCH (11:57)
--- NOTE | 2017-03-15 12:33 | PN ---
Progress Note, Physician History of Present Illness: Pt seen and examined at bedside. She is anxious. She denies shortness of breath. - Current Medication List Current Medications: Active Medications Acetaminophen (Tylenol -) 325 mg PO Q6H PRN PRN Reason: FEVER OR PAIN Dexamethasone Sodium Phosphate (Decadron Injection -) 4 mg IVPB Q6H-IV TOMÁS Last Admin: 03/15/17 11:16 Dose: 4 mg Enoxaparin Sodium (Lovenox -) 30 mg SQ DAILY [facility]OM[facility] Last Admin: 03/15/17 11:16 Dose: 30 mg Sodium Chloride (1/2 Normal Saline) 1,000 mls @ 70 mls/hr IV ASDIR TOMÁS Last Admin: 03/14/17 22:18 Dose: 70 mls/hr Polyethylene Glycol (Miralax (For Daily Use) -) 17 gm PO BID TOM[facility]S Last Admin: 03/14/17 22:15 Dose: Not Given - Objective Vital Signs: Vital Signs Temperature 97.7 F 03/15/17 05:34 Pulse Rate 91 H 03/15/17 05:34 Respiratory Rate 18 03/15/17 05:34 Blood Pressure 113/69 03/15/17 05:34 O2 Sat by Pulse Oximetry (%) 95 03/14/17 21:00 Constitutional: Yes: Calm Eyes: Yes: Conjunctiva Clear HENT: Yes: Atraumatic Neck: Yes: Supple Cardiovascular: Yes: S1, S2 Respiratory: Yes: CTA Bilaterally Gastrointestinal: Yes: Soft Genitourinary: Yes: WNL Musculoskeletal: Yes: Back Pain, Muscle Weakness Edema: No Neurological: Yes: Oriented Psychiatric: Yes: Oriented Labs: CBC, BMP 03/15/17 06:00 03/15/17 06:00 Assessment/Plan Current Medications Generic Name Dose Route Start Last Admin Trade Name Freq PRN Reason Stop Dose Admin Acetaminophen 325 mg 03/08/17 18:28 Tylenol - PO Q6H PRN FEVER OR PAIN Dexamethasone Sodium Phosphate 4 mg 03/15/17 09:00 03/15/17 11:16 Decadron Injection - IVPB 4 mg Q6H-IV TOMÁS Administration Enoxaparin Sodium 30 mg 03/11/17 10:00 03/15/17 11:16 Lovenox - SQ 30 mg DAILY TOMÁS Administration Sodium Chloride 1,000 mls @ 70 mls/hr 03/13/17 14:15 03/14/17 22:18 1/2 Normal Saline IV 70 mls/hr ASDIR TOMÁS Administration Polyethylene Glycol 17 gm 03/12/17 22:00 03/14/17 22:15 Miralax (For Daily Use) - PO Not Given BID TOMÁS Impression 1. multiple myeloma 2. SHANIA 3. anemia 4. Chol 5. COPD 6. anemia 7. compression fracture 8. small pleural effusion Plan - follow up upep - oncology input appreciated - discussed at length with family and with pt - suspect renal involvement from myeloma - repeat labs in am - cont fluids Dr Soto
--- NOTE | 2017-03-15 17:16 | PN ---
Progress Note (short form) - Note Progress Note: Patient seen and examined. no overnight events. HEENT: SAVANNAH, EOM Intact Oropharynx: No thrush, No mucositis Cor: RSR, No murmurs, No gallops Lungs: Clear to P&A Abd: Soft, Normal bowel sounds, No organomegaly,mild distension Ext:No significant edema Skin: No rashes, Integument intact Temp Pulse Resp BP Pulse Ox 97.6 F 97 H 18 125/72 95 03/15/17 14:49 03/15/17 14:49 03/15/17 14:49 03/15/17 14:49 03/15/17 09:00 CBC, BMP 03/15/17 06:00 03/15/17 06:00 Current Medications Generic Name Dose Route Start Last Admin Trade Name Freq PRN Reason Stop Dose Admin Acetaminophen 325 mg 03/08/17 18:28 Tylenol - PO Q6H PRN FEVER OR PAIN Dexamethasone Sodium Phosphate 4 mg 03/15/17 09:00 03/15/17 16:44 Decadron Injection - IVPB 4 mg Q6H-IV TOMÁS Administration Enoxaparin Sodium 30 mg 03/11/17 10:00 03/15/17 11:16 Lovenox - SQ 30 mg DAILY TOMÁ[facility] Administration Sodium Chloride 1,000 mls @ 70 mls/hr 03/13/17 14:15 03/14/17 22:18 1/2 Normal Saline IV 70 mls/hr ASDIR TOMÁS Administration Polyethylene Glycol 17 gm 03/12/17 22:00 03/15/17 16:46 Miralax (For Daily Use) - PO 17 grams BID TOMÁS Administration Assessment/Plan: Multiple myeloma - not in remission 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 also spoke to one of the Pts daughters over the phone. reportedly pt's family in agreement with the plan,RT. Arleth , one of the daughters said she will let me know once they speak to her mom . Spoke to , who recommends IR consult for consideration of kyphoplasty for stabilization prior to RT as mentioned in his note. let message to IR and placed consult as per above appreciate renal f.u celsa c/w Dex DVT ppx Miralax TTE wnl
[2017-03-16] MEDS: DEXAMETHASONE SOD PHOSPHATE 4 MG/1 ML VIAL IVPB SCH ×4 (03:54→21:47)
[2017-03-16] MEDS: SODIUM CHLORIDE 0.45% 1,000 ML IV SCH ×2 (03:55→19:14)
[2017-03-16 07:51] LABS: MCH 30.2 pg (25.7-33.7); MCHC 33.5 g/dl (32.0-36.0); MEAN CELL VOLUME 90.2 fl (80-96); MEAN PLT VOLUME 7.5 fl (7.5-11.1); PLATELET COUNT 94 K/MM3 (134-434); RDW 17.9 % (11.6-15.6); WHITE BLOOD COUNT 8.6 K/mm3 (4.0-10.0)
[2017-03-16 07:59] LABS: INR 1.03 (0.82-1.09); PROTHROMBIN TIME (PATIENT) 11.6 SEC (9.98-11.88)
[2017-03-16 08:01] LABS: ACTIVATED PTT 31.9 SECONDS (26.9-34.4)
[2017-03-16 08:13] LABS: ALBUMIN 2.8 g/dl (3.4-5.0); ANION GAP 10 (8-16); CALCIUM 7.7 mg/dL (8.5-10.1); CO2 18 mmol/L (21-32); CREATININE 2.2 mg/dL (0.55-1.02); GLUCOSE,RANDOM 122 mg/dL (74-106); SGOT/AST 39 U/L (15-37); SGPT/ALT 15 U/L (12-78)
[2017-03-16 08:14] LABS: ALK PHOS 61 U/L (45-117); BILIRUBIN,TOTAL 0.5 mg/dL (0.2-1.0); TOT PROT 6.6 g/dl (6.4-8.2)
[2017-03-16 08:53] LABS: PLATELET ESTIMATE DECREASED (NORMAL)
[2017-03-16 08:54] LABS: METAMYELOCYTE 4 % (0-2); MYELOCYTE 3 % (0-2); NUCLEATED RED BLOOD CELL 1 % (0-0); TOTAL CELLS COUNTED 100
[2017-03-16] MEDS: ENOXAPARIN NA (PORCINE) 30 MG/0.3 ML DISP.SYRIN SQ SCH (09:47)
[2017-03-16] MEDS: POLYETHYLENE GLYCOL 3350 119 GM BTL PO SCH ×2 (09:47→22:22)
--- NOTE | 2017-03-16 15:03 | PN ---
Progress Note, Physician History of Present Illness: Pt seen and examined at bedside. She appears comfortable today. - Current Medication List Current Medications: Active Medications Acetaminophen (Tylenol -) 325 mg PO Q6H PRN PRN Reason: FEVER OR PAIN Dexamethasone Sodium Phosphate (Decadron Injection -) 4 mg IVPB Q6H-IV TOMÁS Last Admin: 03/16/17 14:49 Dose: 4 mg Enoxaparin Sodium (Lovenox -) 30 mg SQ DAILY [facility] Last Admin: 03/16/17 09:47 Dose: 30 mg Sodium Chloride (1/2 Normal Saline) 1,000 mls @ 70 mls/hr IV ASDIR TOMÁS Last Admin: 03/16/17 03:55 Dose: 70 mls/hr Polyethylene Glycol (Miralax (For Daily Use) -) 17 gm PO BID TOÁMS Last Admin: 03/16/17 09:47 Dose: Not Given - Objective Vital Signs: Vital Signs Temperature 98.0 F 03/16/17 09:00 Pulse Rate 82 03/16/17 09:00 Respiratory Rate 20 03/16/17 09:00 Blood Pressure 145/70 03/16/17 09:00 O2 Sat by Pulse Oximetry (%) 95 03/15/17 09:00 Constitutional: Yes: Calm Eyes: Yes: Conjunctiva Clear HENT: Yes: Atraumatic Neck: Yes: Supple Cardiovascular: Yes: S1, S2 Respiratory: Yes: CTA Bilaterally Gastrointestinal: Yes: Normal Bowel Sounds, Soft Genitourinary: Yes: WNL Musculoskeletal: Yes: Muscle Weakness Edema: No Neurological: Yes: Oriented Psychiatric: Yes: Oriented Labs: CBC, BMP 03/16/17 06:00 03/16/17 06:00 INR, PTT INR 1.03 (0.82-1.09) 03/16/17 06:00 Assessment/Plan Current Medications Generic Name Dose Route Start Last Admin Trade Name Freq PRN Reason Stop Dose Admin Acetaminophen 325 mg 03/08/17 18:28 Tylenol - PO Q6H PRN FEVER OR PAIN Dexamethasone Sodium Phosphate 4 mg 03/15/17 09:00 03/16/17 14:49 Decadron Injection - IVPB 4 mg Q6H-IV TOMÁS Administration Enoxaparin Sodium 30 mg 03/11/17 10:00 03/16/17 09:47 Lovenox - SQ 30 mg DAILY TOMÁS Administration Sodium Chloride 1,000 mls @ 70 mls/hr 03/13/17 14:15 03/16/17 03:55 1/2 Normal Saline IV 70 mls/hr ASDIR TOMÁS Administration Polyethylene Glycol 17 gm 03/12/17 22:00 03/16/17 09:47 Miralax (For Daily Use) - PO Not Given BID TOMÁS Impression 1. multiple myeloma 2. SHANIA 3. anemia 4. Chol 5. COPD 6. anemia 7. compression fracture 8. small pleural effusion Plan - cont fluids - follow urine studies - discussed case with pts daughter - oncology input appreciated - suspect renal involvement from myeloma - repeat labs in am Dr Soto
--- NOTE | 2017-03-16 15:36 | PN ---
Progress Note (short form) - Note Progress Note: Patient seen and examined. no overnight events. HEENT: SAVANNAH, EOM Intact Oropharynx: No thrush, No mucositis Cor: RSR, No murmurs, No gallops Lungs: Clear to P&A Abd: Soft, Normal bowel sounds, No organomegaly,mild distension Ext:No significant edema Skin: No rashes, Integument intact Last Vital Signs Temp Pulse Resp BP Pulse Ox 97.2 F L 77 20 109/61 95 03/16/17 15:05 03/16/17 15:05 03/16/17 15:05 03/16/17 15:05 03/15/17 09:00 CBC, BMP 03/16/17 06:00 03/16/17 06:00 Current Medications Generic Name Dose Route Start Last Admin Trade Name Freq PRN Reason Stop Dose Admin Acetaminophen 325 mg 03/08/17 18:28 Tylenol - PO Q6H PRN FEVER OR PAIN Dexamethasone Sodium Phosphate 4 mg 03/15/17 09:00 03/16/17 14:49 Decadron Injection - IVPB 4 mg Q6H-IV TOMÁS Administration Enoxaparin Sodium 30 mg 03/11/17 10:00 03/16/17 09:47 Lovenox - SQ 30 mg DAILY TOMÁS Administration Sodium Chloride 1,000 mls @ 70 mls/hr 03/13/17 14:15 03/16/17 03:55 1/2 Normal Saline IV 70 mls/hr ASDIR TOMÁS Administration Polyethylene Glycol 17 gm 03/12/17 22:00 03/16/17 09:47 Miralax (For Daily Use) - PO Not Given BID TOMÁS Assessment/Plan: Multiple myeloma - not in remission 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 f/u tomorrow labs, likely cytopenias from myeloma involvment of the marrow possible systemic Rx with KRD/KPD appreciate renal f.u celsa c/w Dex DVT ppx Miralax TTE wnl spent >30 min, explaining to family and speaking to other client relationship consultant and then later again updating the family about the plan
[2017-03-17] MEDS: DEXAMETHASONE SOD PHOSPHATE 4 MG/1 ML VIAL IVPB SCH ×4 (02:24→21:53)
[2017-03-17 08:28] LABS: MCH 30.3 pg (25.7-33.7); MCHC 33.2 g/dl (32.0-36.0); MEAN CELL VOLUME 91.3 fl (80-96); MEAN PLT VOLUME 7.8 fl (7.5-11.1); PLATELET COUNT 92 K/MM3 (134-434); RDW 17.8 % (11.6-15.6); WHITE BLOOD COUNT 8.1 K/mm3 (4.0-10.0)
[2017-03-17 08:39] LABS: ALBUMIN 2.9 g/dl (3.4-5.0); ANION GAP 9 (8-16); BILIRUBIN,TOTAL 0.4 mg/dL (0.2-1.0); CALCIUM 7.3 mg/dL (8.5-10.1); CO2 19 mmol/L (21-32); CREATININE 2.4 mg/dL (0.55-1.02); GLUCOSE,RANDOM 113 mg/dL (74-106); SGOT/AST 41 U/L (15-37); SGPT/ALT 19 U/L (12-78); TOT PROT 6.8 g/dl (6.4-8.2)
[2017-03-17 08:40] LABS: ALK PHOS 60 U/L (45-117)
[2017-03-17] MEDS: SODIUM CHLORIDE 0.45% 1,000 ML IV SCH (08:53)
[2017-03-17] MEDS: POLYETHYLENE GLYCOL 3350 119 GM BTL PO SCH ×2 (10:09→21:38)
[2017-03-17] MEDS: ENOXAPARIN NA (PORCINE) 30 MG/0.3 ML DISP.SYRIN SQ SCH (10:09)
[2017-03-17 10:47] LABS: MYELOCYTE 2 % (0-2); PLATELET ESTIMATE DECREASED (NORMAL); TOTAL CELLS COUNTED 100
[2017-03-17] MEDS ORDERED: SODIUM CHLORIDE 0.45% 1,000 ML IV SCH ×2 (12:34→14:59)
--- NOTE | 2017-03-17 14:34 | PN ---
Progress Note (short form) - Note Progress Note: Patient seen and examined 2 daughters at bedside Lengthy discussion for 30 minutes. Awaiting discussion about kyphoplasty from [facility]. RT feels this is an important component to treatement. Rediscussed issues of kyphoplasty, Rt, chemotherpay. This was previously espoused by Dr. Christy from [facility] Last Vital Signs Temp Pulse Resp BP Pulse Ox 97.6 F 80 20 107/63 96 03/17/17 09:00 03/17/17 09:00 03/17/17 09:00 03/17/17 09:00 03/17/17 09:00 HEENT: SAVANNAH, EOM Intact Oropharynx: No thrush, No mucositis Cor: RSR, No murmurs, No gallops Lungs: decreased sounds at left base Abd: Soft, Normal bowel sounds, No organomegaly, distended Ext:No significant edema, heel pads Skin: No rashes, Integument intact CBC, BMP 03/17/17 07:00 03/17/17 07:00 Current Medications Generic Name Dose Route Start Last Admin Trade Name Freq PRN Reason Stop Dose Admin Acetaminophen 325 mg 03/08/17 18:28 Tylenol - PO Q6H PRN FEVER OR PAIN Dexamethasone Sodium Phosphate 4 mg 03/15/17 09:00 03/17/17 08:54 Decadron Injection - IVPB 4 mg Q6H-IV TOMÁS Administration Enoxaparin Sodium 30 mg 03/11/17 10:00 03/17/17 10:09 Lovenox - SQ Not Given DAILY TOM[facility]S Sodium Chloride 1,000 mls @ 100 mls/hr 03/17/17 12:34 03/17/17 12:50 1/2 Normal Saline IV Not Given ASDIR TOMÁS Polyethylene Glycol 17 gm 03/12/17 22:00 03/17/17 10:09 Miralax (For Daily Use) - PO 17 grams BID TOMÁS Administration Imp: MM not in remisssion Compression fx Anemia Consider kyphoplasty, RT, systemic therapy. Would transfuse prior to kyphoplasty.
--- NOTE | 2017-03-17 14:58 | PN ---
Progress Note, Physician History of Present Illness: Pt seen and examined at bedside. She is awake and appears comfortable. She gets confused at times. - Current Medication List Current Medications: Active Medications Acetaminophen (Tylenol -) 325 mg PO Q6H PRN PRN Reason: FEVER OR PAIN Dexamethasone Sodium Phosphate (Decadron Injection -) 4 mg IVPB Q6H-IV TOMÁS Last Admin: 03/17/17 08:54 Dose: 4 mg Enoxaparin Sodium (Lovenox -) 30 mg SQ DAILY TOMÁS Last Admin: 03/17/17 10:09 Dose: Not Given Sodium Chloride (1/2 Normal Saline) 1,000 mls @ 100 mls/hr IV ASDIR TOMÁS Last Admin: 03/17/17 12:50 Dose: Not Given Polyethylene Glycol (Miralax (For Daily Use) -) 17 gm PO BID TOMÁS Last Admin: 03/17/17 10:09 Dose: 17 grams - Objective Vital Signs: Vital Signs Temperature 97.6 F 03/17/17 09:00 Pulse Rate 80 03/17/17 09:00 Respiratory Rate 20 03/17/17 09:00 Blood Pressure 107/63 03/17/17 09:00 O2 Sat by Pulse Oximetry (%) 96 03/17/17 09:00 Constitutional: Yes: Calm Eyes: Yes: Conjunctiva Clear HENT: Yes: Atraumatic Neck: Yes: Supple Cardiovascular: Yes: S1, S2 Respiratory: Yes: CTA Bilaterally Gastrointestinal: Yes: Soft Genitourinary: Yes: WNL Musculoskeletal: Yes: Muscle Weakness Edema: No Neurological: Yes: Oriented Labs: CBC, BMP 03/17/17 07:00 03/17/17 07:00 INR, PTT INR 1.03 (0.82-1.09) 03/16/17 06:00 Assessment/Plan Current Medications Generic Name Dose Route Start Last Admin Trade Name Freq PRN Reason Stop Dose Admin Acetaminophen 325 mg 03/08/17 18:28 Tylenol - PO Q6H PRN FEVER OR PAIN Dexamethasone Sodium Phosphate 4 mg 03/15/17 09:00 03/17/17 08:54 Decadron Injection - IVPB 4 mg Q6H-IV TOMÁS Administration Enoxaparin Sodium 30 mg 03/11/17 10:00 03/17/17 10:09 Lovenox - SQ Not Given DAILY TOM[facility]S Sodium Chloride 1,000 mls @ 100 mls/hr 10/20/17 12:34 03/17/17 12:50 1/2 Normal Saline IV Not Given ASDIR TOMÁS Polyethylene Glycol 17 gm 03/12/17 22:00 03/17/17 10:09 Miralax (For Daily Use) - PO 17 grams BID TOMÁS Administration Sodium Bicarbonate 325 mg 03/17/17 15:00 Sodium Bicarbonate - PO BID TOMÁS Impression 1. multiple myeloma 2. SHANIA 3. anemia 4. Chol 5. COPD 6. anemia 7. compression fracture 8. small pleural effusion Plan - will start PO bicarb - low potassium diet - repeat labs in am - renal function is worsening - discussed with pts family - discussed with heme onc - suspect renal involvement from myeloma Dr Soto
[2017-03-17] MEDS: SODIUM BICARBONATE 325 MG TABLET PO SCH ×2 (15:55→21:53)
--- NOTE | 2017-03-17 16:43 | PN ---
Progress Note (short form) - Note Progress Note: Radiation Oncology Reports back pain on Tylenol. Denies numbness, incontinence, focal arm/leg weakness. Does report generalized weakness. Exam: nonfocal without sensory level, point tenderness at T10 level. MRI T-L spine without contrast reviewed with Radiology. 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 Impression: MM with back pain from interval pathologic fx assoc w epidural tumor. Palliative RT recommended to help improve pain control and fracture healing, minimize epidural tumor progression and sequela/neurologic deficits. Will consider outpatient RT if medically stable and can be cleared by neurosurgery for mobility. Consider kyphoplasty if feasible prior to RT to stabilize T10 fx. Awaiting consult from Dr. Cisse. Discussed w pt and [address] Eugenia Dominguez.
[2017-03-17] MEDS ORDERED: PT OWN MED DRAWER 7, Y5N ONE (20:26)
[2017-03-18] MEDS: DEXAMETHASONE SOD PHOSPHATE 4 MG/1 ML VIAL IVPB SCH ×4 (03:13→21:15)
[2017-03-18 07:33] LABS: MCH 30.4 pg (25.7-33.7); MCHC 33.2 g/dl (32.0-36.0); MEAN CELL VOLUME 91.8 fl (80-96); PLATELET COUNT 89 K/MM3 (134-434); RDW 16.6 % (11.6-15.6); WHITE BLOOD COUNT 7.1 K/mm3 (4.0-10.0)
[2017-03-18 08:14] LABS: ALK PHOS 56 U/L (45-117); ANION GAP 10 (8-16); BILIRUBIN,TOTAL 0.7 mg/dL (0.2-1.0); CO2 18 mmol/L (21-32); CREATININE 2.1 mg/dL (0.55-1.02); GLUCOSE,RANDOM 104 mg/dL (74-106); SGOT/AST 31 U/L (15-37); SGPT/ALT 20 U/L (12-78); TOT PROT 6.7 g/dl (6.4-8.2)
[2017-03-18] MEDS ORDERED: PT OWN MED DRAWER 7, Y5N ONE ×2 (09:01→20:29)
[2017-03-18] MEDS: ENOXAPARIN NA (PORCINE) 30 MG/0.3 ML DISP.SYRIN SQ SCH (09:05)
[2017-03-18] MEDS: POLYETHYLENE GLYCOL 3350 119 GM BTL PO SCH ×2 (09:06→21:14)
[2017-03-18] MEDS: SODIUM BICARBONATE 325 MG TABLET PO SCH ×2 (09:06→21:15)
[2017-03-18 10:28] LABS: PLATELET ESTIMATE DECREASED (NORMAL); TOTAL CELLS COUNTED 100
[2017-03-18 10:29] LABS: METAMYELOCYTE 2 % (0-2); NUCLEATED RED BLOOD CELL 1 % (0-0)
--- NOTE | 2017-03-18 11:56 | PN ---
Progress Note (short form) - Note Progress Note: Note Progress Note: Seen in follow up. Overall doing better. Pain controlled. Anxious about pending decision re management of recent spinal fracture. Meds reviewed. Current Medications Generic Name Dose Route Start Last Admin Trade Name Freq PRN Reason Stop Dose Admin Acetaminophen 325 mg 03/08/17 18:28 Tylenol - PO Q6H PRN FEVER OR PAIN Dexamethasone Sodium Phosphate 4 mg 03/15/17 09:00 03/18/17 09:05 Decadron Injection - IVPB 4 mg Q6H-IV [facility] Administration Sodium Chloride 1,000 mls @ 83 mls/hr 03/17/17 14:59 03/17/17 15:18 1/2 Normal Saline IV Not Given ASDIR [facility] Polyethylene Glycol 17 gm 03/12/17 22:00 03/18/17 09:06 Miralax (For Daily Use) - PO Not Given BID [facility] Sodium Bicarbonate 325 mg 03/17/17 15:00 03/18/17 09:06 Sodium Bicarbonate - PO 325 mg BID [facility] Administration On exam: Last Vital Signs Temp Pulse Resp BP Pulse Ox 97.7 F 60 18 127/70 95 03/18/17 08:41 03/18/17 08:41 03/18/17 08:41 03/18/17 08:41 03/18/17 09:00 General: Comfortable, supine in bed. Extremities: Pallor, no icterus. Chest:normal AE bilaterally, clear.. Abdomen: Soft, no organomegaly, no masses. Neuro: Alert, oriented, non-focal. CVS: Normal sinus rhythm, S1, S2, no gallop or murmur. Assessment. Myeloma - presently with pancytopenia, progressive on Velcade/DEX, extensive ( prior)spinal involvement, and now with likely acute compression fracture (T9). Awaiting RTX - decision regarding prior kyphoplasty prior to RTX pending - family wish to have MRI reviewed by outside specialist. Supportive carte in interim, pain control, thromboprophylaxis. .
--- NOTE | 2017-03-18 12:13 | PN ---
Progress Note (short form) - Note Progress Note: RENAL Pt seen and examined was comfortably sleeping. I awakened her Last Vital Signs Temp Pulse Resp BP Pulse Ox 97.7 F 60 18 127/70 95 03/18/17 08:41 03/18/17 08:41 03/18/17 08:41 03/18/17 08:41 03/18/17 09:00 lungs clear cvs s1s2 rr abd soft ext no edema neuro a+Ox3 CBC, BMP 03/18/17 06:00 03/18/17 06:00 Current Medications Generic Name Dose Route Start Last Admin Trade Name Freq PRN Reason Stop Dose Admin Acetaminophen 325 mg 03/08/17 18:28 Tylenol - PO Q6H PRN FEVER OR PAIN Dexamethasone Sodium Phosphate 4 mg 03/15/17 09:00 03/18/17 09:05 Decadron Injection - IVPB 4 mg Q6H-IV [facility] Administration Sodium Chloride 1,000 mls @ 83 mls/hr 03/17/17 14:59 03/17/17 15:18 1/2 Normal Saline IV Not Given ASDIR [facility] Polyethylene Glycol 17 gm 03/12/17 22:00 03/18/17 09:06 Miralax (For Daily Use) - PO Not Given BID [facility] Sodium Bicarbonate 325 mg 03/17/17 15:00 03/18/17 09:06 Sodium Bicarbonate - PO 325 mg BID [facility] Administration Impression 1. multiple myeloma 2. SHANIA 3. anemia 4. Chol 5. COPD 6. anemia 7. compression fracture 8. small pleural effusion Plan continue current management can remain on bicarb MV
[2017-03-18] MEDS: SODIUM CHLORIDE 0.45% 1,000 ML IV SCH (13:04)
[2017-03-19] MEDS: DEXAMETHASONE SOD PHOSPHATE 4 MG/1 ML VIAL IVPB SCH ×4 (02:14→23:22)
[2017-03-19 07:54] LABS: ANION GAP 13 (8-16); CO2 17 mmol/L (21-32); CREATININE 2.1 mg/dL (0.55-1.02); GLUCOSE,RANDOM 104 mg/dL (74-106)
[2017-03-19 08:26] LABS: CALCIUM 6.7 mg/dL (8.5-10.1)
[2017-03-19 08:27] LABS: MCH 30.4 pg (25.7-33.7); MCHC 33.4 g/dl (32.0-36.0); MEAN CELL VOLUME 91.1 fl (80-96); MEAN PLT VOLUME 7.8 fl (7.5-11.1); PLATELET COUNT 91 K/MM3 (134-434); RDW 16.7 % (11.6-15.6); WHITE BLOOD COUNT 5.8 K/mm3 (4.0-10.0)
[2017-03-19] MEDS ORDERED: PT OWN MED DRAWER 7, Y5N ONE ×3 (08:52→23:28)
[2017-03-19] MEDS: SODIUM BICARBONATE 325 MG TABLET PO SCH ×3 (09:00→23:53)
[2017-03-19] MEDS: POLYETHYLENE GLYCOL 3350 119 GM BTL PO SCH ×2 (09:00→23:22)
[2017-03-19] MEDS ORDERED: CALCIUM GLUCONATE 10% - 1,000 MG/10 ML VIAL IVPB ONE (09:15)
[2017-03-19] MEDS: SODIUM POLYSTYRENE SULFONATE 15 GM/60 ML BOTTLE PO ONE ×3 (10:02→11:37)
[2017-03-19] MEDS: SODIUM CHLORIDE 0.45% 1,000 ML IV SCH ×3 (10:02→18:30)
[2017-03-19 10:11] LABS: MYELOCYTE 3 % (0-2); PLATELET ESTIMATE DECREASED (NORMAL); TOTAL CELLS COUNTED 100
[2017-03-19 10:12] LABS: REACTIVE LYMPHOCYTES 1 % (0-80)
[2017-03-19] MEDS: CALCIUM CARBONATE 650 MG TABLET PO SCH (10:33)
--- NOTE | 2017-03-19 10:35 | PN ---
Progress Note (short form) - Note Progress Note: RENAL Pt seen and examined daughter was present Last Vital Signs Temp Pulse Resp BP Pulse Ox 98.5 F 67 18 134/76 96 03/19/17 08:49 03/19/17 08:49 03/19/17 08:49 03/19/17 08:49 03/18/17 21:00 lungs clear cvs s1s2 rr abd soft ext no edema neuro a+Ox3 CBC, BMP 03/19/17 06:00 03/19/17 06:00 Current Medications Generic Name Dose Route Start Last Admin Trade Name Freq PRN Reason Stop Dose Admin Acetaminophen 325 mg 03/08/17 18:28 Tylenol - PO Q6H PRN FEVER OR PAIN Calcium Carbonate 650 mg 03/19/17 10:00 Calcium Carbonate - PO DAILY [facility] Dexamethasone Sodium Phosphate 4 mg 03/15/17 09:00 03/19/17 08:56 Decadron Injection - IVPB 4 mg Q6H-IV [facility] Administration Sodium Chloride 1,000 mls @ 150 mls/hr 03/18/17 12:04 03/19/17 10:02 1/2 Normal Saline IV 150 mls/hr ASDIR [facility] Administration Polyethylene Glycol 17 gm 03/12/17 22:00 03/19/17 09:00 Miralax (For Daily Use) - PO Not Given BID [facility] Sodium Bicarbonate 325 mg 03/17/17 15:00 03/19/17 09:00 Sodium Bicarbonate - PO 325 mg BID [facility] Administration Impression 1. multiple myeloma 2. SHANIA 3. anemia 4. Chol 5. COPD 6. anemia 7. compression fracture 8. small pleural effusion 9. hyperkalemia probably worsened by constipation Plan continue current management can remain on bicarb agree with kayexalate cautious hydration MV
--- NOTE | 2017-03-19 11:42 | PN ---
Progress Note (short form) - Note Progress Note: Note Progress Note: Seen in follow up. No new complaints. Pain controlled. Pending decision re management of recent spinal fracture. Has not agreed to taking Kayexalate out of concern about adverse reaction to sorbitol. Meds reviewed. Current Medications Generic Name Dose Route Start Last Admin Trade Name Freq PRN Reason Stop Dose Admin Acetaminophen 325 mg 03/08/17 18:28 Tylenol - PO Q6H PRN FEVER OR PAIN Calcium Carbonate 650 mg 03/19/17 10:00 03/19/17 10:33 Calcium Carbonate - PO 650 mg DAILY [facility] Administration Dexamethasone Sodium Phosphate 4 mg 03/15/17 09:00 03/19/17 08:56 Decadron Injection - IVPB 4 mg Q6H-IV [facility] Administration Sodium Chloride 1,000 mls @ 150 mls/hr 03/18/17 12:04 03/19/17 10:02 1/2 Normal Saline IV 150 mls/hr ASDIR [facility] Administration Polyethylene Glycol 17 gm 03/12/17 22:00 03/19/17 09:00 Miralax (For Daily Use) - PO Not Given BID [facility] Sodium Bicarbonate 325 mg 03/17/17 15:00 03/19/17 09:00 Sodium Bicarbonate - PO 325 mg BID [facility] Administration On exam: Last Vital Signs Temp Pulse Resp BP Pulse Ox 98.5 F 67 18 134/76 96 03/19/17 08:49 03/19/17 08:49 03/19/17 08:49 03/19/17 08:49 03/18/17 21:00 General: Comfortable, supine in bed. Extremities: Pallor, no icterus. Chest:breathing comfortably Abdomen: Non-distended. Neuro: Alert, oriented, non-focal, anxious, as at baseline. Assessment. Myeloma - presently with pancytopenia, progressive on Velcade/DEX, extensive ( prior)spinal involvement, and now with likely acute compression fracture (T9). Awaiting RTX - decision regarding prior kyphoplasty prior to RTX pending - family wish to have MRI reviewed by outside specialist. Supportive care in interim, pain control, thromboprophylaxis. Low Ca and rising K noted. IV calcium ordered, and oral calcium initiated - check albumin with labs tomorrow. Dose kayexalate today - clarified that prior adverse reaction was with aspartame - no reason to suspect intolerance of sorbitol. Rising BUN noted, with stable creat - ? steroids. Continue maintenance IV fluids. .
[2017-03-20] MEDS: DEXAMETHASONE SOD PHOSPHATE 4 MG/1 ML VIAL IVPB SCH ×4 (03:48→21:01)
[2017-03-20] MEDS: SODIUM CHLORIDE 0.45% 1,000 ML IV SCH ×4 (04:01→16:53)
[2017-03-20] MEDS ORDERED: PT OWN MED DRAWER 7, Y5N ONE (08:55)
[2017-03-20] MEDS: POLYETHYLENE GLYCOL 3350 119 GM BTL PO SCH ×2 (09:00→21:10)
[2017-03-20] MEDS: CALCIUM CARBONATE 650 MG TABLET PO SCH (09:01)
[2017-03-20] MEDS: SODIUM BICARBONATE 325 MG TABLET PO SCH (09:01)
[2017-03-20 10:45] LABS: ALBUMIN 2.8 g/dl (3.4-5.0); ALK PHOS 52 U/L (45-117); ANION GAP 11 (8-16); BILIRUBIN,TOTAL 0.5 mg/dL (0.2-1.0); CO2 19 mmol/L (21-32); CREATININE 1.9 mg/dL (0.55-1.02); GLUCOSE,RANDOM 104 mg/dL (74-106); SGOT/AST 24 U/L (15-37); SGPT/ALT 20 U/L (12-78); TOT PROT 6.3 g/dl (6.4-8.2)
[2017-03-20 10:51] LABS: CALCIUM 6.3 mg/dL (8.5-10.1)
[2017-03-20] MEDS ORDERED: CALCIUM GLUCONATE 10% - 1,000 MG/10 ML VIAL IVPB ONE (11:27)
--- NOTE | 2017-03-20 11:27 | PN ---
Progress Note, Physician History of Present Illness: Pt seen and examined at bedside. She is awake and appears comfortable. She is anxious. She has had a bowel movement. - Current Medication List Current Medications: Active Medications Acetaminophen (Tylenol -) 325 mg PO Q6H PRN PRN Reason: FEVER OR PAIN Calcium Carbonate (Calcium Carbonate -) 650 mg PO DAILY [facility] Last Admin: 03/20/17 09:01 Dose: 650 mg Calcium Carbonate/Cholecalciferol (Os-Ilan 500+D -) 2 tab PO ONCE ONE Stop: 03/20/17 11:31 Dexamethasone Sodium Phosphate (Decadron Injection -) 4 mg IVPB Q6H-IV [facility] Last Admin: 03/20/17 09:00 Dose: 4 mg Sodium Chloride (1/2 Normal Saline) 1,000 mls @ 150 mls/hr IV ASDIR [facility] Last Admin: 03/20/17 07:41 Dose: 150 mls/hr Polyethylene Glycol (Miralax (For Daily Use) -) 17 gm PO BID [facility] Last Admin: 03/20/17 09:00 Dose: Not Given Sodium Bicarbonate (Sodium Bicarbonate -) 325 mg PO BID [facility] Last Admin: 03/20/17 09:01 Dose: 325 mg - Objective Vital Signs: Vital Signs Temperature 97.8 F 03/20/17 09:00 Pulse Rate 63 03/20/17 09:00 Respiratory Rate 20 03/20/17 09:00 Blood Pressure 116/60 03/20/17 09:00 O2 Sat by Pulse Oximetry (%) 97 03/20/17 09:00 Constitutional: Yes: Calm Eyes: Yes: Conjunctiva Clear HENT: Yes: Atraumatic Neck: Yes: Supple Cardiovascular: Yes: S1, S2 Respiratory: Yes: CTA Bilaterally Gastrointestinal: Yes: Soft Genitourinary: Yes: WNL Neurological: Yes: Oriented Psychiatric: Yes: Oriented Labs: CBC, BMP 03/19/17 06:00 03/20/17 10:12 INR, PTT INR 1.03 (0.82-1.09) 03/16/17 06:00 Assessment/Plan Current Medications Generic Name Dose Route Start Last Admin Trade Name Freq PRN Reason Stop Dose Admin Acetaminophen 325 mg 03/08/17 18:28 Tylenol - PO Q6H PRN FEVER OR PAIN Calcium Carbonate 650 mg 03/19/17 10:00 03/20/17 09:01 Calcium Carbonate - PO 650 mg DAILY [facility] Administration Calcium Carbonate/Cholecalciferol 2 tab 03/20/17 11:30 Os-Ilan 500+D - PO 03/20/17 11:31 ONCE ONE Dexamethasone Sodium Phosphate 4 mg 03/15/17 09:00 03/20/17 09:00 Decadron Injection - IVPB 4 mg Q6H-IV [facility] Administration Sodium Chloride 1,000 mls @ 150 mls/hr 03/18/17 12:04 03/20/17 07:41 1/2 Normal Saline IV 150 mls/hr ASDIR [facility] Administration Polyethylene Glycol 17 gm 03/12/17 22:00 03/20/17 09:00 Miralax (For Daily Use) - PO Not Given BID [facility] Sodium Bicarbonate 325 mg 03/17/17 15:00 03/20/17 09:01 Sodium Bicarbonate - PO 325 mg BID [facility] Administration Impression 1. multiple myeloma 2. SHANIA 3. anemia 4. Chol 5. COPD 6. anemia 7. compression fracture 8. small pleural effusion 9. plural effusion Plan - decrease rate of fluids - replace calcum - hold bicarb for now - repeat labs in am - potassium is improved - family are still considering treatment options - suspect renal involvement from myeloma Dr Soto
[2017-03-20] MEDS ORDERED: CALCIUM 500MG/VIT-D 200 UNITS COMBO TABLET (FP) PO ONE (11:30)
--- NOTE | 2017-03-20 21:41 | PN ---
Progress Note (short form) - Note Progress Note: PAtient seen and examined c/o back pain AFVSS Cor: RSR, No murmurs, No gallops Lungs: Clear to P&A Abd: Soft, Normal bowel sounds, No organomegaly Ext:No significant edema labs/mds rviwed A/P 81 y/o patient with myeloma, admitted with back pain MRI T/L spine with comprssion fx/pidural xtnsion Also SHANIA progressing myloma discussd with hugo in great detail----they had discussd with IR. At this time thy have decided to proced with RT without kyphoplasty. They do not want to pursue kyphoplasty at this time. Will inform rad-onc team
[2017-03-21] MEDS: SODIUM CHLORIDE 0.45% 1,000 ML IV SCH ×3 (03:17→21:52)
[2017-03-21] MEDS: DEXAMETHASONE SOD PHOSPHATE 4 MG/1 ML VIAL IVPB SCH ×4 (03:18→21:45)
[2017-03-21 07:42] LABS: MCH 30.5 pg (25.7-33.7); MCHC 33.5 g/dl (32.0-36.0); MEAN CELL VOLUME 91.2 fl (80-96); MEAN PLT VOLUME 7.6 fl (7.5-11.1); PLATELET COUNT 98 K/MM3 (134-434)
[2017-03-21 08:00] LABS: ALBUMIN 2.9 g/dl (3.4-5.0); ANION GAP 14 (8-16); CO2 16 mmol/L (21-32); GLUCOSE,RANDOM 95 mg/dL (74-106)
[2017-03-21 08:05] LABS: ALK PHOS 46 U/L (45-117); BILIRUBIN,TOTAL 0.6 mg/dL (0.2-1.0); CREATININE 1.8 mg/dL (0.55-1.02); SGOT/AST 19 U/L (15-37); SGPT/ALT 19 U/L (12-78); TOT PROT 6.3 g/dl (6.4-8.2)
[2017-03-21 08:16] LABS: CALCIUM 6.8 mg/dL (8.5-10.1)
[2017-03-21 09:32] LABS: TOTAL CELLS COUNTED 100
[2017-03-21 09:33] LABS: METAMYELOCYTE 7 % (0-2); MYELOCYTE 2 % (0-2); PLATELET ESTIMATE DECREASED (NORMAL)
[2017-03-21] MEDS: CALCIUM CARBONATE 650 MG TABLET PO SCH (10:26)
[2017-03-21] MEDS: POLYETHYLENE GLYCOL 3350 119 GM BTL PO SCH ×2 (10:26→21:46)
[2017-03-21] MEDS ORDERED: CALCIUM 500MG/VIT-D 200 UNITS COMBO TABLET (FP) PO ONE (15:15)
--- NOTE | 2017-03-21 17:06 | PN ---
Progress Note, Physician History of Present Illness: Pt seen and examined at bedside. She is awake and appears comfortable. - Current Medication List Current Medications: Active Medications Acetaminophen (Tylenol -) 325 mg PO Q6H PRN PRN Reason: FEVER OR PAIN Calcium Carbonate (Calcium Carbonate -) 650 mg PO DAILY [facility] Last Admin: 03/21/17 10:26 Dose: 650 mg Dexamethasone Sodium Phosphate (Decadron Injection -) 4 mg IVPB Q6H-IV [facility] Last Admin: 03/21/17 14:54 Dose: 4 mg Sodium Chloride (1/2 Normal Saline) 1,000 mls @ 100 mls/hr IV ASDIR [facility] Last Admin: 03/21/17 12:19 Dose: 100 mls/hr Polyethylene Glycol (Miralax (For Daily Use) -) 17 gm PO BID [facility] Last Admin: 03/21/17 10:26 Dose: Not Given - Objective Vital Signs: Vital Signs Temperature 98.1 F 03/21/17 09:00 Pulse Rate 61 03/21/17 09:00 Respiratory Rate 18 03/21/17 09:00 Blood Pressure 131/71 03/21/17 09:00 O2 Sat by Pulse Oximetry (%) 97 03/21/17 09:00 Constitutional: Yes: Calm Eyes: Yes: Conjunctiva Clear HENT: Yes: Atraumatic Neck: Yes: Supple Cardiovascular: Yes: S1, S2 Respiratory: Yes: CTA Bilaterally Gastrointestinal: Yes: Soft Genitourinary: Yes: WNL Musculoskeletal: Yes: Muscle Weakness Edema: No Neurological: Yes: Oriented Labs: CBC, BMP 03/21/17 06:30 03/21/17 06:30 INR, PTT INR 1.03 (0.82-1.09) 03/16/17 06:00 Assessment/Plan Current Medications Generic Name Dose Route Start Last Admin Trade Name Freq PRN Reason Stop Dose Admin Acetaminophen 325 mg 03/08/17 18:28 Tylenol - PO Q6H PRN FEVER OR PAIN Calcium Carbonate 650 mg 03/19/17 10:00 03/21/17 10:26 Calcium Carbonate - PO 650 mg DAILY [facility] Administration Dexamethasone Sodium Phosphate 4 mg 03/15/17 09:00 03/21/17 14:54 Decadron Injection - IVPB 4 mg Q6H-IV [facility] Administration Sodium Chloride 1,000 mls @ 100 mls/hr 03/20/17 11:28 03/21/17 12:19 1/2 Normal Saline IV 100 mls/hr ASDIR [facility] Administration Polyethylene Glycol 17 gm 03/12/17 22:00 03/21/17 10:26 Miralax (For Daily Use) - PO Not Given BID [facility] Impression 1. multiple myeloma 2. SHANIA 3. anemia 4. Chol 5. COPD 6. anemia 7. compression fracture 8. small pleural effusion 9. plural effusion Plan - decrease rate of fluids - replace calcum - hold bicarb for now - repeat labs in am - potassium is improved - family are still considering treatment options - suspect renal involvement from myeloma Dr Soto
--- NOTE | 2017-03-21 17:37 | PN ---
Progress Note (short form) - Note Progress Note: Patient seen and examined Daughter at bedside Spoke with Dr. Martin To hold off on brace as it will increase spinal instability To allow OOB with PT. Patient has decided in favor of RT without kyphoplasty- to proceed Fractionation to be decided upon Last Vital Signs Temp Pulse Resp BP Pulse Ox 98.1 F 61 18 131/71 97 03/21/17 09:00 03/21/17 09:00 03/21/17 09:00 03/21/17 09:00 03/21/17 09:00 HEENT: SAVANNA[place], EOM Intact Oropharynx: No thrush, No mucositis Neck: Supple Cor: RSR, No murmurs, No gallops Lungs: Clear to P&A Abd: Soft, Normal bowel sounds, No organomegaly, some distension Ext:No significant edema Skin: No rashes, Integument intact CBC, BMP 03/21/17 06:30 03/21/17 06:30 Abnormal Lab Results 03/21/17 03/21/17 06:30 06:30 RBC 2.83 L Hgb 8.6 L Hct 25.8 L RDW 16.0 H Plt Count 98 L Chloride 108 H Carbon Dioxide 16 L BUN 64 H Creatinine 1.8 H Calcium 6.8 L* Total Protein 6.3 L Albumin 2.9 L Current Medications Generic Name Dose Route Start Last Admin Trade Name Freq PRN Reason Stop Dose Admin Acetaminophen 325 mg 03/08/17 18:28 Tylenol - PO Q6H PRN FEVER OR PAIN Calcium Carbonate 650 mg 03/19/17 10:00 03/21/17 10:26 Calcium Carbonate - PO 650 mg DAILY [facility] Administration Dexamethasone Sodium Phosphate 4 mg 03/15/17 09:00 03/21/17 14:54 Decadron Injection - IVPB 4 mg Q6H-IV [facility] Administration Sodium Chloride 1,000 mls @ 100 mls/hr 03/20/17 11:28 03/21/17 12:19 1/2 Normal Saline IV 100 mls/hr ASDIR [facility] Administration Polyethylene Glycol 17 gm 03/12/17 22:00 03/21/17 10:26 Miralax (For Daily Use) - PO Not Given BID [facility] Impression: Multiple myeloma-not in remission SHANIA/CKD- likely secondary to myeloma and light chain deposition Anemia-to monitor Hypocalcemia- for replacement Compression Fx -- for RT Plan: as above P.T.
--- NOTE | 2017-03-21 21:23 | PN ---
Progress Note (short form) - Note Progress Note: Radiation Oncology Back pain controlled but has not gotten out of bed for fear of worsening verterbral fractures. Exam: point tenderness at T10 level. MRI T-L spine without contrast reviewed with Radiology. 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 Impression: MM with back pain from interval pathologic fx assoc w epidural tumor , concern of future cord compromise Palliative RT recommended to help improve pain control and fracture healing, minimize epidural tumor progression and sequela/neurologic deficits. Spoke to pt and dtr at bedside and again with another dtr by phone this afternoon (total time > 60min). They have decided to defer kyphoplasty and seem to be in favor of RT. However pt still to make final decision about moving forward with RT. Will plan to start inpt RT if pt decides. Consider PT and mobilization if cleared by neurosurgery. Cont decadron.
[2017-03-22] MEDS: DEXAMETHASONE SOD PHOSPHATE 4 MG/1 ML VIAL IVPB SCH ×4 (02:26→21:54)
[2017-03-22 07:50] LABS: MCH 30.6 pg (25.7-33.7); MCHC 33.6 g/dl (32.0-36.0); MEAN CELL VOLUME 91.2 fl (80-96); MEAN PLT VOLUME 7.4 fl (7.5-11.1); PLATELET COUNT 98 K/MM3 (134-434); WHITE BLOOD COUNT 4.5 K/mm3 (4.0-10.0)
[2017-03-22 08:05] LABS: ALBUMIN 2.7 g/dl (3.4-5.0); ALK PHOS 45 U/L (45-117); ANION GAP 7 (8-16); BILIRUBIN,TOTAL 0.7 mg/dL (0.2-1.0); CO2 22 mmol/L (21-32); GLUCOSE,RANDOM 77 mg/dL (74-106); SGOT/AST 20 U/L (15-37); SGPT/ALT 16 U/L (12-78); TOT PROT 5.9 g/dl (6.4-8.2)
[2017-03-22] MEDS: SODIUM CHLORIDE 0.45% 1,000 ML IV SCH ×2 (08:14→14:21)
[2017-03-22] MEDS ORDERED: PT OWN MED DRAWER 7, Y5N ONE (09:40)
[2017-03-22 09:45] LABS: CALCIUM 6.9 mg/dL (8.5-10.1)
[2017-03-22] MEDS: POLYETHYLENE GLYCOL 3350 119 GM BTL PO SCH ×2 (10:01→21:55)
[2017-03-22] MEDS: CALCIUM CARBONATE 650 MG TABLET PO SCH (10:01)
--- NOTE | 2017-03-22 12:55 | PN ---
Progress Note (short form) - Note Progress Note: Came to see pt however she was taken across the street for radiation. Will see pt tomorrow.
--- NOTE | 2017-03-22 13:04 | PN ---
Progress Note (short form) - Note Progress Note: Radiation Oncology Back pain controlled but has not gotten out of bed for fear of worsening verterbral fractures. Exam: point tenderness at T10 level. MRI T-L spine without contrast reviewed with Radiology. 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 Impression: MM with back pain from interval pathologic fx assoc w epidural tumor , concern of future cord compromise Palliative RT recommended to help improve pain control and fracture healing, minimize epidural tumor progression and sequela/neurologic deficits. Completed RT simulation planning today. Will begin 1st of 10 treatments to T-spine tomorrow. Consider PT and mobilization if cleared by neurosurgery. Cont decadron.
--- NOTE | 2017-03-22 13:09 | PN ---
Progress Note (short form) - Note Progress Note: Patient seen and examined. no overnight events. HEENT: SAVANNAH, EOM Intact Oropharynx: No thrush, No mucositis Cor: RSR, No murmurs, No gallops Lungs: Clear to P&A Abd: Soft, Normal bowel sounds, No organomegaly,mild distension Ext:No significant edema Skin: No rashes, Integument intact Last Vital Signs Temp Pulse Resp BP Pulse Ox 97.7 F 65 20 135/71 97 03/22/17 09:15 03/22/17 09:15 03/22/17 09:15 03/22/17 09:15 03/21/17 20:33 CBC, BMP 03/22/17 06:00 03/22/17 06:00 Current Medications Generic Name Dose Route Start Last Admin Trade Name Freq PRN Reason Stop Dose Admin Acetaminophen 325 mg 03/08/17 18:28 Tylenol - PO Q6H PRN FEVER OR PAIN Calcium Carbonate 650 mg 03/19/17 10:00 03/22/17 10:01 Calcium Carbonate - PO 650 mg DAILY [facility] Administration Dexamethasone Sodium Phosphate 4 mg 03/15/17 09:00 03/22/17 14:21 Decadron Injection - IVPB 4 mg Q6H-IV [facility] Administration Sodium Chloride 1,000 mls @ 100 mls/hr 03/20/17 11:28 03/22/17 14:21 1/2 Normal Saline IV Not Given ASDIR [facility] Polyethylene Glycol 17 gm 03/12/17 22:00 03/22/17 10:01 Miralax (For Daily Use) - PO 17 grams BID [facility] Administration Assessment/Plan: Myeloma: POD SHANIA compression fracture RT sim today c.w dex DVT ppx appreciate NSG eval OOB PT
[2017-03-22] MEDS ORDERED: ENOXAPARIN NA (PORCINE) 30 MG/0.3 ML DISP.SYRIN SQ ONE (14:27)
--- NOTE | 2017-03-22 15:19 | PN ---
Progress Note (short form) - Note Progress Note: NEUROSURGERY Daughters at bedside Sitting up in chair In good spirit In minimal pain S/p posterior T11-L1 fusion/stabilization for T12 fx in October at [facility] PE: AF, VSS HEENT- NC/AT; neck- supple; Cor- RR; Lungs- CTA B except decreased BS at bases; Abd- benign, + BS; Ext- no sign of DVT CN- intact; Motor- 4+-5/5 B UE/LE; Sensation- intact LT; DTR- hyporeflexic; Back - tender mid and lower T spine; Incision closed Cr 2.0 BUN 62 Pain meds For RT (has simulation today) Further surgery not recommended at this time TLSO will likely weaken truncal musculature Weight bearing exercises d/w pt and family PT-OOB All questions answered
[2017-03-23] MEDS: DEXAMETHASONE SOD PHOSPHATE 4 MG/1 ML VIAL IVPB SCH ×4 (02:17→22:05)
[2017-03-23] MEDS: SODIUM CHLORIDE 0.45% 1,000 ML IV SCH ×3 (06:03→18:43)
--- NOTE | 2017-03-23 07:52 | PN ---
Progress Note (short form) - Note Progress Note: NEUROSURGERY Sitting up in bed In good spirit Not in much pain Somewhat anxious about RT S/p posterior T11-L1 fusion/stabilization for T12 fx in October at [facility] PE: AF, VSS HEENT- NC/AT; neck- supple; Cor- RR; Lungs- CTA B except decreased BS at bases; Abd- benign, + BS; Ext- no sign of DVT CN- intact; Motor- 4+-5/5 B UE/LE; Sensation- intact LT; DTR- hyporeflexic Pain meds For RT per med oncology/rad onc Further surgery not recommended at this time Weight bearing exercises d/w pt and family PT-OOB
[2017-03-23] MEDS ORDERED: PT OWN MED DRAWER 7, Y5N ONE (09:03)
[2017-03-23] MEDS: CALCIUM CARBONATE 650 MG TABLET PO SCH (09:11)
[2017-03-23] MEDS: POLYETHYLENE GLYCOL 3350 119 GM BTL PO SCH ×2 (09:11→22:05)
--- NOTE | 2017-03-23 14:58 | PN ---
Progress Note (short form) - Note Progress Note: PAtient seen and examined no specificc/o Last Vital Signs Temp Pulse Resp BP Pulse Ox 97.7 F 60 20 137/76 97 03/23/17 14:11 03/23/17 14:11 03/23/17 14:11 03/23/17 14:11 03/22/17 21:00 Cor: RSR, No murmurs, No gallops Lungs: Clear to P&A Abd: Soft, Normal bowel sounds, No organomegaly Ext:2+ edema b/l LAbs/meds rviewed A/P 81 y/o patient with myeloma, admitted with back pain MRI T/L spine with comprssion fx/pidural xtnsion Also SHANIA progressing myloma on decadron/started RT to vertebral compression/epidural disease
--- NOTE | 2017-03-23 15:00 | PN ---
Progress Note (short form) - Note Progress Note: Radiation Oncology Back pain controlled but has not gotten out of bed for fear of worsening verterbral fractures. Exam: point tenderness at T10 level. MRI T-L spine without contrast reviewed with Radiology. 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 Impression: MM with back pain from interval pathologic fx assoc w epidural tumor , concern of future cord compromise Completed 1st RT to T10 area without difficulty today. Will cont RT as tolerated, total of 10 fractions planned. Monitor CBC. OOB and mobilization as tolerated. Cont decadron. D/C planning.
--- NOTE | 2017-03-23 15:33 | PN ---
Progress Note, Physician History of Present Illness: Pt seen and examined at bedside. She had radiation today. - Current Medication List Current Medications: Active Medications Acetaminophen (Tylenol -) 325 mg PO Q6H PRN PRN Reason: FEVER OR PAIN Calcium Carbonate (Calcium Carbonate -) 650 mg PO DAILY [facility] Last Admin: 03/23/17 09:11 Dose: 650 mg Dexamethasone Sodium Phosphate (Decadron Injection -) 4 mg IVPB Q6H-IV [facility] Last Admin: 03/23/17 14:56 Dose: 4 mg Sodium Chloride (1/2 Normal Saline) 1,000 mls @ 100 mls/hr IV ASDIR [facility] Last Admin: 03/23/17 14:56 Dose: Not Given Polyethylene Glycol (Miralax (For Daily Use) -) 17 gm PO BID [facility] Last Admin: 03/23/17 09:11 Dose: 17 grams - Objective Vital Signs: Vital Signs Temperature 97.7 F 03/23/17 14:11 Pulse Rate 60 03/23/17 14:11 Respiratory Rate 20 03/23/17 14:11 Blood Pressure 137/76 03/23/17 14:11 O2 Sat by Pulse Oximetry (%) 97 03/22/17 21:00 Constitutional: Yes: Calm Eyes: Yes: Conjunctiva Clear HENT: Yes: Atraumatic Neck: Yes: Supple Cardiovascular: Yes: S1, S2 Respiratory: Yes: CTA Bilaterally Gastrointestinal: Yes: Soft Edema: No Neurological: Yes: Oriented Labs: CBC, BMP 03/22/17 06:00 03/22/17 06:00 INR, PTT INR 1.03 (0.82-1.09) 03/16/17 06:00 Assessment/Plan Current Medications Generic Name Dose Route Start Last Admin Trade Name Freq PRN Reason Stop Dose Admin Acetaminophen 325 mg 03/08/17 18:28 Tylenol - PO Q6H PRN FEVER OR PAIN Calcium Carbonate 650 mg 03/19/17 10:00 03/23/17 09:11 Calcium Carbonate - PO 650 mg DAILY [facility] Administration Dexamethasone Sodium Phosphate 4 mg 03/15/17 09:00 03/23/17 14:56 Decadron Injection - IVPB 4 mg Q6H-IV [facility] Administration Sodium Chloride 1,000 mls @ 100 mls/hr 03/20/17 11:28 03/23/17 14:56 1/2 Normal Saline IV Not Given ASDIR [facility] Polyethylene Glycol 17 gm 03/12/17 22:00 03/23/17 09:11 Miralax (For Daily Use) - PO 17 grams BID [facility] Administration Impression 1. multiple myeloma 2. SHANIA 3. anemia 4. Chol 5. COPD 6. anemia 7. compression fracture 8. small pleural effusion 9. plural effusion Plan - no labs from today - repeat labs in am - cont fluids - monitor lytes - suspect renal involvement from myeloma Dr Soto
[2017-03-24] MEDS: DEXAMETHASONE SOD PHOSPHATE 4 MG/1 ML VIAL IVPB SCH ×4 (02:01→21:58)
[2017-03-24] MEDS: SODIUM CHLORIDE 0.45% 1,000 ML IV SCH ×3 (05:47→17:41)
--- NOTE | 2017-03-24 08:18 | PN ---
Progress Note (short form) - Note Progress Note: NEUROSURGERY Sitting up in bed Not in much pain Started on RT yesterday PE: AF, VSS HEENT- NC/AT; neck- supple; Cor- RR; Lungs- CTA B except decreased BS at bases; Abd- benign, + BS; Ext- no sign of DVT CN- intact; Motor- 4+-5/5 B UE/LE; Sensation- intact LT; DTR- hyporeflexic Pain meds Further surgery not recommended at this time Weight bearing exercises d/w pt and family to help with bone consistency Encouraged PT-OOB and pt stated she will do so today
[2017-03-24 09:02] LABS: ALK PHOS 50 U/L (45-117); BILIRUBIN,TOTAL 0.4 mg/dL (0.2-1.0); SGOT/AST 21 U/L (15-37); SGPT/ALT 16 U/L (12-78); TOT PROT 6.4 g/dl (6.4-8.2)
[2017-03-24] MEDS: POLYETHYLENE GLYCOL 3350 119 GM BTL PO SCH ×2 (09:42→21:59)
[2017-03-24 10:44] LABS: ANION GAP 10 (8-16); CO2 20 mmol/L (21-32); CREATININE 2.1 mg/dL (0.55-1.02); GLUCOSE,RANDOM 106 mg/dL (74-106)
[2017-03-24 10:57] LABS: CALCIUM 6.9 mg/dL (8.5-10.1)
[2017-03-24] MEDS ORDERED: CALCIUM GLUCONATE 10% - 1,000 MG/10 ML VIAL IVPB ONE (11:35)
[2017-03-24] MEDS: CALCIUM CARBONATE 650 MG TABLET PO SCH (11:43)
--- NOTE | 2017-03-24 14:42 | PN ---
Progress Note (short form) - Note Progress Note: Radiation Oncology Offers no complaints Exam: nonfocal neurologic MRI T-L spine without contrast reviewed with Radiology. 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 Impression: MM with back pain from interval pathologic fx assoc w epidural tumor , concern of future cord compromise Tolerated 2nd RT to T10 area today. Will cont RT on Mon, total of 10 fractions planned. Monitor CBC. OOB and mobilization as tolerated. Cont decadron. D/C planning.
[2017-03-24] MEDS ORDERED: CALCIUM GLUCONATE 10% - 1,000 MG/10 ML VIAL ONE (14:53)
--- NOTE | 2017-03-24 15:41 | PN ---
Progress Note, Physician History of Present Illness: Pt seen and examined at bedside. She had radiation today. She is awake and alert. - Current Medication List Current Medications: Active Medications Acetaminophen (Tylenol -) 325 mg PO Q6H PRN PRN Reason: FEVER OR PAIN Calcium Carbonate (Calcium Carbonate -) 650 mg PO DAILY [facility] Last Admin: 03/24/17 11:43 Dose: 650 mg Dexamethasone Sodium Phosphate (Decadron Injection -) 4 mg IVPB Q6H-IV [facility] Last Admin: 03/24/17 15:01 Dose: 4 mg Sodium Chloride (1/2 Normal Saline) 1,000 mls @ 100 mls/hr IV ASDIR [facility] Last Admin: 03/24/17 15:01 Dose: Not Given Polyethylene Glycol (Miralax (For Daily Use) -) 17 gm PO BID [facility] Last Admin: 03/24/17 09:42 Dose: Not Given - Objective Vital Signs: Vital Signs Temperature 97.7 F 03/24/17 05:25 Pulse Rate 74 03/24/17 05:25 Respiratory Rate 20 03/24/17 05:25 Blood Pressure 128/75 03/24/17 05:25 O2 Sat by Pulse Oximetry (%) 95 03/23/17 21:00 Constitutional: Yes: Calm Eyes: Yes: Conjunctiva Clear HENT: Yes: Atraumatic Cardiovascular: Yes: S1, S2 Respiratory: Yes: CTA Bilaterally Gastrointestinal: Yes: Normal Bowel Sounds, Soft Genitourinary: Yes: WNL Musculoskeletal: Yes: Other (back pain) Edema: Yes Edema: LLE: 1+, RLE: 1+ Neurological: Yes: Oriented Psychiatric: Yes: Oriented Labs: CBC, BMP 03/22/17 06:00 03/24/17 06:30 INR, PTT INR 1.03 (0.82-1.09) 03/16/17 06:00 Assessment/Plan Current Medications Generic Name Dose Route Start Last Admin Trade Name Freq PRN Reason Stop Dose Admin Acetaminophen 325 mg 03/08/17 18:28 Tylenol - PO Q6H PRN FEVER OR PAIN Calcium Carbonate 650 mg 03/19/17 10:00 03/24/17 11:43 Calcium Carbonate - PO 650 mg DAILY [facility] Administration Dexamethasone Sodium Phosphate 4 mg 03/15/17 09:00 03/24/17 15:01 Decadron Injection - IVPB 4 mg Q6H-IV [facility] Administration Sodium Chloride 1,000 mls @ 100 mls/hr 03/20/17 11:28 03/24/17 15:01 1/2 Normal Saline IV Not Given ASDIR [facility] Polyethylene Glycol 17 gm 03/12/17 22:00 03/24/17 09:42 Miralax (For Daily Use) - PO Not Given BID [facility] Impression 1. multiple myeloma 2. SHANIA 3. anemia 4. Chol 5. COPD 6. anemia 7. compression fracture 8. small pleural effusion 9. plural effusion Plan - decrease rate of fluids - increase dose of calcium - restart low dose PO bicarb - low potassium diet - monitor lytes - suspect renal involvement from myeloma Dr Soto
[2017-03-24] MEDS: SODIUM BICARBONATE 325 MG TABLET PO SCH (17:41)
[2017-03-24] MEDS: CALCIUM 500MG/VIT-D 200 UNITS COMBO TABLET (FP) PO SCH (21:59)
--- NOTE | 2017-03-24 22:16 | PN ---
Progress Note (short form) - Note Progress Note: PAtient seen and examined no specific c/o Last Vital Signs Temp Pulse Resp BP Pulse Ox 97.8 F 75 18 113/71 95 03/24/17 17:16 03/24/17 17:16 03/24/17 17:16 03/24/17 17:16 03/24/17 09:00 Cor: RSR, No murmurs, No gallops Lungs: Clear to P&A Abd: Soft, Normal bowel sounds, No organomegaly Ext:2+ edema b/l LAbs/meds rviewed A/P 81 y/o patient with myeloma, admitted with back pain MRI T/L spine with comprssion fx/epidural xtnsion Also SHANIA progressing myeloma on decadron/started RT to vertebral compression/epidural disease add protonix discussed with daughter at bed side
[2017-03-25] MEDS: DEXAMETHASONE SOD PHOSPHATE 4 MG/1 ML VIAL IVPB SCH ×4 (02:10→21:45)
[2017-03-25] MEDS ORDERED: PT OWN MED DRAWER 7, Y5N ONE ×2 (05:43→08:50)
[2017-03-25 08:12] LABS: ALBUMIN 3.1 g/dl (3.4-5.0); ALK PHOS 45 U/L (45-117); ANION GAP 12 (8-16); BILIRUBIN,TOTAL 0.5 mg/dL (0.2-1.0); CALCIUM 7.5 mg/dL (8.5-10.1); CO2 18 mmol/L (21-32); CREATININE 1.7 mg/dL (0.55-1.02); GLUCOSE,RANDOM 93 mg/dL (74-106); SGOT/AST 23 U/L (15-37); SGPT/ALT 16 U/L (12-78); TOT PROT 6.1 g/dl (6.4-8.2)
[2017-03-25] MEDS: CALCIUM 500MG/VIT-D 200 UNITS COMBO TABLET (FP) PO SCH ×2 (09:14→22:30)
[2017-03-25] MEDS: SODIUM BICARBONATE 325 MG TABLET PO SCH (09:15)
[2017-03-25] MEDS: POLYETHYLENE GLYCOL 3350 119 GM BTL PO SCH ×2 (09:16→22:30)
--- NOTE | 2017-03-25 09:44 | PN ---
Progress Note (short form) - Note Progress Note: NEUROSURGERY Sitting in chiar Daughter at bedside Not in much pain Received 2 doses of RT PE: AF, VSS HEENT- NC/AT; neck- supple; Cor- RR; Lungs- CTA B except decreased BS at bases; Abd- benign, + BS; Ext- no sign of DVT CN- intact; Motor- 4+-5/5 B UE/LE; Sensation- intact LT; DTR- hyporeflexic Pain minimal Encouraged PT-OOB; will walk with daughter this am Tolerating RT well Will sign off Reconsult prn
--- NOTE | 2017-03-25 12:32 | PN ---
Progress Note (short form) - Note Progress Note: Hematology/Oncology Follow-up note S: Patient feels well with no complaints today. Last Vital Signs Temp Pulse Resp BP Pulse Ox 97.5 F L 77 20 117/65 95 03/24/17 22:00 03/24/17 22:00 03/24/17 22:00 03/24/17 22:00 03/24/17 21:00 Cor: RSR, No murmurs, No gallops Lungs: Clear to P&A Abd: Soft, Normal bowel sounds, No organomegaly Ext:2+ edema b/l CBC, BMP 03/22/17 06:00 03/25/17 06:00 Current Medications Generic Name Dose Route Start Last Admin Trade Name Freq PRN Reason Stop Dose Admin Acetaminophen 325 mg 03/08/17 18:28 Tylenol - PO Q6H PRN FEVER OR PAIN Calcium Carbonate/Cholecalciferol 1 tab 03/24/17 22:00 03/25/17 09:14 Os-Ilan 500+D - PO 1 tab BID [facility] Administration Dexamethasone Sodium Phosphate 4 mg 03/15/17 09:00 03/25/17 09:14 Decadron Injection - IVPB 4 mg Q6H-IV [facility] Administration Sodium Chloride 1,000 mls @ 42 mls/hr 03/24/17 15:41 03/24/17 17:41 1/2 Normal Saline IV 42 mls/hr ASDIR [facility] Administration Pantoprazole Sodium 40 mg 03/26/17 10:00 Protonix - PO DAILY [facility] Polyethylene Glycol 17 gm 03/12/17 22:00 03/25/17 09:16 Miralax (For Daily Use) - PO Not Given BID [facility] Sodium Bicarbonate 325 mg 03/24/17 15:45 03/25/17 09:15 Sodium Bicarbonate - PO 325 mg DAILY [facility] Administration Sodium Polystyrene Sulfonate 15 gm 03/25/17 12:30 Kayexalate - PO Q6H [facility] A/P Ms Fuentes is an 81 y/o female with MM with vertebral lesions with epidural extension and compression fracture. Also presented with SHANIA -Cr stable, will continue to monitor -hyperkalemia today with K of 5.8, please give PO Kayexalate 15 mg upto 3 times q406 hours until patient has a BM. Please recheck BMP in the evening and reassess eletrolytes -continue current dose of decadron, added protonix 40 mg PO daily today -will continue to follow closely
[2017-03-25] MEDS: SODIUM POLYSTYRENE SULFONATE 15 GM/60 ML BOTTLE PO SCH ×2 (13:52→17:33)
[2017-03-25] MEDS: SODIUM CHLORIDE 0.45% 1,000 ML IV SCH (16:07)
[2017-03-26] MEDS: SODIUM POLYSTYRENE SULFONATE 15 GM/60 ML BOTTLE PO SCH ×4 (00:50→17:34)
[2017-03-26] MEDS: DEXAMETHASONE SOD PHOSPHATE 4 MG/1 ML VIAL IVPB SCH ×4 (02:33→21:05)
[2017-03-26] MEDS: SODIUM CHLORIDE 0.45% 1,000 ML IV SCH ×2 (02:33→17:34)
[2017-03-26 08:15] LABS: MCHC 34.2 g/dl (32.0-36.0); MEAN CELL VOLUME 90.7 fl (80-96); MEAN PLT VOLUME 7.9 fl (7.5-11.1); PLATELET COUNT 127 K/MM3 (134-434); RDW 15.8 % (11.6-15.6); WHITE BLOOD COUNT 4.8 K/mm3 (4.0-10.0)
[2017-03-26 08:45] LABS: ALBUMIN 2.9 g/dl (3.4-5.0); ANION GAP 11 (8-16); BILIRUBIN,TOTAL 0.5 mg/dL (0.2-1.0); CALCIUM 7.1 mg/dL (8.5-10.1); CO2 20 mmol/L (21-32); GLUCOSE,RANDOM 99 mg/dL (74-106); SGOT/AST 22 U/L (15-37); SGPT/ALT 15 U/L (12-78); TOT PROT 6.2 g/dl (6.4-8.2)
[2017-03-26 08:46] LABS: ALK PHOS 47 U/L (45-117)
[2017-03-26] MEDS ORDERED: PT OWN MED DRAWER 7, Y5N ONE (08:58)
[2017-03-26] MEDS: CALCIUM 500MG/VIT-D 200 UNITS COMBO TABLET (FP) PO SCH ×2 (09:57→21:05)
[2017-03-26] MEDS: PANTOPRAZOLE 40 MG TABLET (FP) PO SCH (09:57)
[2017-03-26] MEDS: POLYETHYLENE GLYCOL 3350 119 GM BTL PO SCH ×2 (11:32→21:05)
[2017-03-26] MEDS: SODIUM BICARBONATE 325 MG TABLET PO SCH (11:41)
[2017-03-26 12:29] LABS: PLATELET ESTIMATE SLT DECREASED (NORMAL); TOTAL CELLS COUNTED 100
[2017-03-26 12:30] LABS: METAMYELOCYTE 2 % (0-2); MYELOCYTE 2 % (0-2)
--- NOTE | 2017-03-26 19:53 | PN ---
Progress Note (short form) - Note Progress Note: 1. multiple myeloma 2. SHANIA 3. anemia 4. Chol 5. COPD 6. anemia 7. compression fracture 8. small pleural effusion 9. plural effusion Current Medications Acetaminophen (Tylenol -) 325 mg PO Q6H PRN PRN Reason: FEVER OR PAIN Calcium Carbonate/Cholecalciferol (Os-Ilan 500+D -) 1 tab PO BID [facility] Last Admin: 03/26/17 09:57 Dose: 1 tab Dexamethasone Sodium Phosphate (Decadron Injection -) 4 mg IVPB Q6H-IV [facility] Last Admin: 03/26/17 14:53 Dose: 4 mg Sodium Chloride (1/2 Normal Saline) 1,000 mls @ 42 mls/hr IV ASDIR [facility] Last Admin: 03/26/17 17:34 Dose: Not Given Pantoprazole Sodium (Protonix -) 40 mg PO DAILY [facility] Last Admin: 03/26/17 09:57 Dose: 40 mg Polyethylene Glycol (Miralax (For Daily Use) -) 17 gm PO BID [facility] Last Admin: 03/26/17 11:32 Dose: Not Given Sodium Bicarbonate (Sodium Bicarbonate -) 325 mg PO DAILY [facility] Last Admin: 03/26/17 11:41 Dose: 325 mg Sodium Polystyrene Sulfonate (Kayexalate -) 15 gm PO Q6H [facility] Last Admin: 03/26/17 17:34 Dose: Not Given Last Vital Signs Temp Pulse Resp BP Pulse Ox 98.2 F 75 20 124/71 95 03/26/17 18:00 03/26/17 18:00 03/26/17 18:00 03/26/17 18:00 03/26/17 09:00 Lungs clear Heart RRR Abd soft nontender Ext no edema CBC, BMP 03/26/17 06:05 03/26/17 06:05 IMP- MM SHANIA r/o myeloma kidney Plan -follow chems for lytes and renal function
[2017-03-27] MEDS: SODIUM POLYSTYRENE SULFONATE 15 GM/60 ML BOTTLE PO SCH ×3 (01:58→14:28)
[2017-03-27] MEDS: DEXAMETHASONE SOD PHOSPHATE 4 MG/1 ML VIAL IVPB SCH ×4 (02:00→23:05)
[2017-03-27] MEDS ORDERED: PT OWN MED DRAWER 7, Y5N ONE (09:03)
[2017-03-27] MEDS: POLYETHYLENE GLYCOL 3350 119 GM BTL PO SCH (09:04)
[2017-03-27] MEDS: PANTOPRAZOLE 40 MG TABLET (FP) PO SCH ×2 (09:04→09:17)
[2017-03-27] MEDS: CALCIUM 500MG/VIT-D 200 UNITS COMBO TABLET (FP) PO SCH ×2 (09:04→23:05)
[2017-03-27] MEDS: SODIUM BICARBONATE 325 MG TABLET PO SCH (09:05)
--- NOTE | 2017-03-27 13:26 | PN ---
Progress Note (short form) - Note Progress Note: Radiation Oncology Was able to get OOB this weekend, used commode. Dtr mentions she noticed rash/spots on back of right thigh. Pt denies pain or itchiness. Exam: unable to examine leg rash on stretcher. MRI T-L spine without contrast reviewed with Radiology. 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 Impression: MM with back pain from interval pathologic fx assoc w epidural tumor , concern of future cord compromise Tolerated RT to T10 spine, 3 fx completed. Hgb 7.7 but Plts >100k Please evaluate leg rash. OOB and mobilization with assistance as tolerated. Cont decadron. Will cont RT, 7 fx remaining. If able to safely discharge, may cont outpatient RT after Wed.
--- NOTE | 2017-03-27 13:46 | PN ---
Progress Note, Physician History of Present Illness: Pt seen and examined at bedside. She is awake and appears comfortable. Her lower extremity edema is improved. - Current Medication List Current Medications: Active Medications Acetaminophen (Tylenol -) 325 mg PO Q6H PRN PRN Reason: FEVER OR PAIN Calcium Carbonate/Cholecalciferol (Os-Ilan 500+D -) 1 tab PO BID [facility] Last Admin: 03/27/17 09:04 Dose: 1 tab Dexamethasone Sodium Phosphate (Decadron Injection -) 4 mg IVPB Q6H-IV [facility] Last Admin: 03/27/17 09:04 Dose: 4 mg Sodium Chloride (1/2 Normal Saline) 1,000 mls @ 42 mls/hr IV ASDIR [facility] Last Admin: 03/26/17 17:34 Dose: Not Given Pantoprazole Sodium (Protonix -) 40 mg PO DAILY [facility] Last Admin: 03/27/17 09:17 Dose: Not Given Polyethylene Glycol (Miralax (For Daily Use) -) 17 gm PO BID [facility] Last Admin: 03/27/17 09:04 Dose: Not Given Sodium Bicarbonate (Sodium Bicarbonate -) 325 mg PO DAILY [facility] Last Admin: 03/27/17 09:05 Dose: 325 mg Sodium Polystyrene Sulfonate (Kayexalate -) 15 gm PO Q6H [facility] Last Admin: 03/27/17 05:56 Dose: Not Given - Objective Vital Signs: Vital Signs Temperature 97.5 F L 03/27/17 08:56 Pulse Rate 70 03/27/17 08:56 Respiratory Rate 18 03/27/17 09:00 Blood Pressure 126/58 03/27/17 08:56 O2 Sat by Pulse Oximetry (%) 98 03/27/17 09:00 Constitutional: Yes: Calm Eyes: Yes: Conjunctiva Clear HENT: Yes: Atraumatic Neck: Yes: Supple Cardiovascular: Yes: S1, S2 Respiratory: Yes: CTA Bilaterally Gastrointestinal: Yes: Soft Genitourinary: Yes: WNL Musculoskeletal: Yes: Back Pain Edema: Yes Edema: LLE: Trace, RLE: Trace Neurological: Yes: Oriented Psychiatric: Yes: Oriented Labs: CBC, BMP 03/26/17 06:05 03/26/17 06:05 INR, PTT INR 1.03 (0.82-1.09) 03/16/17 06:00 Assessment/Plan Current Medications Generic Name Dose Route Start Last Admin Trade Name Freq PRN Reason Stop Dose Admin Acetaminophen 325 mg 03/08/17 18:28 Tylenol - PO Q6H PRN FEVER OR PAIN Calcium Carbonate/Cholecalciferol 1 tab 03/24/17 22:00 03/27/17 09:04 Os-Ilan 500+D - PO 1 tab BID [facility] Administration Dexamethasone Sodium Phosphate 4 mg 03/15/17 09:00 03/27/17 09:04 Decadron Injection - IVPB 4 mg Q6H-IV [facility] Administration Sodium Chloride 1,000 mls @ 42 mls/hr 03/24/17 15:41 03/26/17 17:34 1/2 Normal Saline IV Not Given ASDIR [facility] Pantoprazole Sodium 40 mg 03/26/17 10:00 03/27/17 09:17 Protonix - PO Not Given DAILY [facility] Polyethylene Glycol 17 gm 03/12/17 22:00 03/27/17 09:04 Miralax (For Daily Use) - PO Not Given BID [facility] Sodium Bicarbonate 325 mg 03/24/17 15:45 03/27/17 09:05 Sodium Bicarbonate - PO 325 mg DAILY [facility] Administration Sodium Polystyrene Sulfonate 15 gm 03/25/17 12:30 03/27/17 05:56 Kayexalate - PO Not Given Q6H [facility] Impression 1. multiple myeloma 2. SHANIA 3. anemia 4. Chol 5. COPD 6. anemia 7. compression fracture 8. small pleural effusion 9. plural effusion Plan - cont fluids - potassium improved - repeat labs in am - cont current management - low potassium diet - monitor lytes - suspect renal involvement from myeloma Dr Soto
[2017-03-27] MEDS: SODIUM CHLORIDE 0.45% 1,000 ML IV SCH (16:18)
--- NOTE | 2017-03-27 16:41 | PN ---
Progress Note (short form) - Note Progress Note: PAtient seen and examined no specific c/o Last Vital Signs Temp Pulse Resp BP Pulse Ox 97.5 F L 79 20 139/72 98 03/27/17 14:01 03/27/17 14:01 03/27/17 14:01 03/27/17 14:01 03/27/17 09:00 Cor: RSR, No murmurs, No gallops Lungs: Clear to P&A Abd: Soft, Normal bowel sounds, No organomegaly Ext:2+ edema b/l Labs/meds reviewed A/P 81 y/o patient with myeloma, admitted with back pain MRI T/L spine with comprssion fx/epidural xtension Also SHANIA progressing myeloma on decadron/started RT to vertebral compression/epidural disease protonix DVT priphylaxis discused with daughters at bedside
[2017-03-28] MEDS: DEXAMETHASONE SOD PHOSPHATE 4 MG/1 ML VIAL IVPB SCH ×4 (02:01→21:15)
[2017-03-28 07:48] LABS: MCH 31.6 pg (25.7-33.7); MCHC 34.5 g/dl (32.0-36.0); MEAN CELL VOLUME 91.5 fl (80-96); MEAN PLT VOLUME 7.3 fl (7.5-11.1); PLATELET COUNT 117 K/MM3 (134-434); RDW 16.3 % (11.6-15.6); WHITE BLOOD COUNT 5.4 K/mm3 (4.0-10.0)
[2017-03-28 08:37] LABS: ALBUMIN 3.1 g/dl (3.4-5.0); ALK PHOS 48 U/L (45-117); ANION GAP 11 (8-16); BILIRUBIN,TOTAL 0.3 mg/dL (0.2-1.0); CO2 21 mmol/L (21-32); CREATININE 2.1 mg/dL (0.55-1.02); GLUCOSE,RANDOM 99 mg/dL (74-106); SGOT/AST 23 U/L (15-37); SGPT/ALT 15 U/L (12-78); TOT PROT 6.2 g/dl (6.4-8.2)
[2017-03-28] MEDS ORDERED: PT OWN MED DRAWER 7, Y5N ONE (08:53)
[2017-03-28] MEDS: SODIUM BICARBONATE 325 MG TABLET PO SCH (09:01)
[2017-03-28] MEDS: CALCIUM 500MG/VIT-D 200 UNITS COMBO TABLET (FP) PO SCH ×2 (09:01→21:15)
[2017-03-28] MEDS: PANTOPRAZOLE 40 MG TABLET (FP) PO SCH (09:05)
[2017-03-28 09:23] LABS: CALCIUM 6.7 mg/dL (8.5-10.1)
[2017-03-28] MEDS ORDERED: ENOXAPARIN NA (PORCINE) 40 MG/0.4 ML DISP.SYRIN SQ SCH (10:00)
[2017-03-28] MEDS ORDERED: CALCIUM GLUCONATE 10% - 1,000 MG/10 ML VIAL IVPB ONE (10:45)
[2017-03-28 12:38] LABS: PLATELET ESTIMATE DECREASED (NORMAL); TOTAL CELLS COUNTED 100
[2017-03-28] MEDS: SODIUM CHLORIDE 0.45% 1,000 ML IV SCH ×2 (14:13→21:14)
--- NOTE | 2017-03-28 14:42 | PN ---
Progress Note, Physician History of Present Illness: Pt seen and examine at bedside. She is awake and appears comfortable. She denies shortness of breath. - Current Medication List Current Medications: Active Medications Acetaminophen (Tylenol -) 325 mg PO Q6H PRN PRN Reason: FEVER OR PAIN Calcium Carbonate/Cholecalciferol (Os-Ilan 500+D -) 1 tab PO BID [facility] Last Admin: 03/28/17 09:01 Dose: 1 tab Dexamethasone Sodium Phosphate (Decadron Injection -) 4 mg IVPB Q6H-IV [facility] Last Admin: 03/28/17 08:55 Dose: 4 mg Enoxaparin Sodium (Lovenox -) 40 mg SQ DAILY [facility] Sodium Chloride (1/2 Normal Saline) 1,000 mls @ 42 mls/hr IV ASDIR [facility] Last Admin: 03/28/17 14:13 Dose: 42 mls/hr Pantoprazole Sodium (Protonix -) 40 mg PO DAILY [facility] Last Admin: 03/28/17 09:05 Dose: Not Given Polyethylene Glycol (Miralax (For Daily Use) -) 17 gm PO DAILY [facility] Sodium Bicarbonate (Sodium Bicarbonate -) 325 mg PO DAILY [facility] Last Admin: 03/28/17 09:01 Dose: 325 mg - Objective Vital Signs: Vital Signs Temperature 98.2 F 03/28/17 14:40 Pulse Rate 77 03/28/17 14:40 Respiratory Rate 20 03/28/17 14:40 Blood Pressure 115/65 03/28/17 14:40 O2 Sat by Pulse Oximetry (%) 97 03/28/17 09:00 Constitutional: Yes: Calm Eyes: Yes: Conjunctiva Clear HENT: Yes: Atraumatic Neck: Yes: Supple Cardiovascular: Yes: S1, S2 Respiratory: Yes: CTA Bilaterally Gastrointestinal: Yes: Soft Genitourinary: Yes: WNL Edema: Yes Edema: LLE: Trace, RLE: Trace Neurological: Yes: Oriented Labs: CBC, BMP 03/28/17 06:00 03/28/17 06:00 INR, PTT INR 1.03 (0.82-1.09) 03/16/17 06:00 Assessment/Plan Current Medications Generic Name Dose Route Start Last Admin Trade Name Freq PRN Reason Stop Dose Admin Acetaminophen 325 mg 03/08/17 18:28 Tylenol - PO Q6H PRN FEVER OR PAIN Calcium Carbonate/Cholecalciferol 1 tab 03/24/17 22:00 03/28/17 09:01 Os-Ilan 500+D - PO 1 tab BID [facility] Administration Dexamethasone Sodium Phosphate 4 mg 03/15/17 09:00 03/28/17 08:55 Decadron Injection - IVPB 4 mg Q6H-IV [facility] Administration Enoxaparin Sodium 40 mg 03/28/17 10:00 Lovenox - SQ DAILY [facility] Sodium Chloride 1,000 mls @ 42 mls/hr 03/24/17 15:41 03/28/17 14:13 1/2 Normal Saline IV 42 mls/hr ASDIR [facility] Administration Pantoprazole Sodium 40 mg 03/26/17 10:00 03/28/17 09:05 Protonix - PO Not Given DAILY [facility] Polyethylene Glycol 17 gm 03/28/17 10:00 Miralax (For Daily Use) - PO DAILY [facility] Sodium Bicarbonate 325 mg 03/24/17 15:45 03/28/17 09:01 Sodium Bicarbonate - PO 325 mg DAILY [facility] Administration Impression 1. multiple myeloma 2. SHANIA 3. anemia 4. Chol 5. COPD 6. anemia 7. compression fracture 8. small pleural effusion 9. plural effusion Plan - replace calcium - cont fluids - check labs in am - low potassium diet - monitor lytes - suspect renal involvement from myeloma Dr Soto
[2017-03-28] MEDS: POLYETHYLENE GLYCOL 3350 119 GM BTL PO SCH (15:09)
--- NOTE | 2017-03-28 17:08 | PN ---
Progress Note (short form) - Note Progress Note: Patient seen and examined Complains of LLQ abdominal pain (just took Miralax) Musculoskeletal pains improved Last Vital Signs Temp Pulse Resp BP Pulse Ox 98.2 F 77 20 115/65 97 03/28/17 14:40 03/28/17 14:40 03/28/17 14:40 03/28/17 14:40 03/28/17 09:00 HEENT: S[place], EOM Intact Oropharynx: No thrush, No mucositis Cor: RSR, No murmurs, No gallops Lungs: Clear to P&A, few rales at bases Abd: Soft, hyperactive bowel sounds, No organomegaly, mild distension Ext:LE edema Skin: 4 discrete macular erythematous well circumcised areas left posterior thigh- not vesicular , not painful, but in an area of numbness from spine disease CBC, BMP 03/28/17 06:00 03/28/17 06:00 Current Medications Generic Name Dose Route Start Last Admin Trade Name Freq PRN Reason Stop Dose Admin Acetaminophen 325 mg 03/08/17 18:28 Tylenol - PO Q6H PRN FEVER OR PAIN Calcium Carbonate/Cholecalciferol 1 tab 03/24/17 22:00 03/28/17 09:01 Os-Ilan 500+D - PO 1 tab BID [facility] Administration Dexamethasone Sodium Phosphate 4 mg 03/15/17 09:00 03/28/17 15:09 Decadron Injection - IVPB 4 mg Q6H-IV [facility] Administration Enoxaparin Sodium 40 mg 03/28/17 10:00 Lovenox - SQ DAILY [facility] Sodium Chloride 1,000 mls @ 42 mls/hr 03/24/17 15:41 03/28/17 14:13 1/2 Normal Saline IV 42 mls/hr ASDIR [facility] Administration Pantoprazole Sodium 40 mg 03/26/17 10:00 03/28/17 09:05 Protonix - PO Not Given DAILY [facility] Polyethylene Glycol 17 gm 03/28/17 10:00 03/28/17 15:09 Miralax (For Daily Use) - PO 17 gm DAILY [facility] Administration Sodium Bicarbonate 325 mg 03/24/17 15:45 03/28/17 09:01 Sodium Bicarbonate - PO 325 mg DAILY [facility] Administration Impression: Myeloma-not in remission Spinal compression RT 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 herpetic Plan: Dermatology-called Transfuse if further fall in Hb/Hct Continue PT Would taper to decadron 12 mg in next 2-3 days if stable Continue RT Change after tomorrow to p.o. decadron - same dose to begin i.e. 16 mg/day. Plan
[2017-03-29] MEDS: DEXAMETHASONE SOD PHOSPHATE 4 MG/1 ML VIAL IVPB SCH ×4 (03:16→22:12)
[2017-03-29] MEDS ORDERED: PT OWN MED DRAWER 7, Y5N ONE (10:08)
[2017-03-29] MEDS: CALCIUM 500MG/VIT-D 200 UNITS COMBO TABLET (FP) PO SCH ×2 (10:42→22:12)
[2017-03-29] MEDS: SODIUM BICARBONATE 325 MG TABLET PO SCH (10:42)
[2017-03-29] MEDS: PANTOPRAZOLE 40 MG TABLET (FP) PO SCH (10:42)
[2017-03-29] MEDS: SODIUM CHLORIDE 0.45% 1,000 ML IV SCH (14:30)
[2017-03-29] MEDS ORDERED: SODIUM CHLORIDE 0.45% 1,000 ML IV SCH (14:45)
[2017-03-29] MEDS: POLYETHYLENE GLYCOL 3350 119 GM BTL PO SCH (14:50)
--- NOTE | 2017-03-29 15:12 | PN ---
Progress Note, Physician History of Present Illness: Pt seen and examine at bedside. She is awake and alert. She denies shortness of breath. - Current Medication List Current Medications: Active Medications Acetaminophen (Tylenol -) 325 mg PO Q6H PRN PRN Reason: FEVER OR PAIN Calcium Carbonate/Cholecalciferol (Os-Ilan 500+D -) 1 tab PO BID [facility] Last Admin: 03/29/17 10:42 Dose: 1 tab Dexamethasone Sodium Phosphate (Decadron Injection -) 4 mg IVPB Q6H-IV [facility] Last Admin: 03/29/17 14:30 Dose: 4 mg Enoxaparin Sodium (Lovenox -) 40 mg SQ DAILY [facility] Sodium Chloride (1/2 Normal Saline) 1,000 mls @ 60 mls/hr IV ASDIR [facility] Pantoprazole Sodium (Protonix -) 40 mg PO DAILY [facility] Last Admin: 03/29/17 10:42 Dose: Not Given Polyethylene Glycol (Miralax (For Daily Use) -) 17 gm PO DAILY [facility] Last Admin: 03/29/17 14:50 Dose: Not Given Sodium Bicarbonate (Sodium Bicarbonate -) 325 mg PO DAILY [facility] Last Admin: 03/29/17 10:42 Dose: 325 mg - Objective Vital Signs: Vital Signs Temperature 97.7 F 03/29/17 05:39 Pulse Rate 63 03/29/17 05:39 Respiratory Rate 18 03/29/17 05:39 Blood Pressure 132/67 03/29/17 05:39 O2 Sat by Pulse Oximetry (%) 96 03/28/17 21:20 Constitutional: Yes: Calm Eyes: Yes: Conjunctiva Clear HENT: Yes: Atraumatic Cardiovascular: Yes: S1, S2 Respiratory: Yes: CTA Bilaterally Gastrointestinal: Yes: Soft Genitourinary: Yes: WNL Musculoskeletal: Yes: Back Pain Extremities: Yes: WNL Edema: Yes Edema: LLE: Trace, RLE: Trace Neurological: Yes: Oriented Labs: CBC, BMP 03/28/17 06:00 03/28/17 06:00 INR, PTT INR 1.03 (0.82-1.09) 03/16/17 06:00 Assessment/Plan Current Medications Generic Name Dose Route Start Last Admin Trade Name Freq PRN Reason Stop Dose Admin Acetaminophen 325 mg 03/08/17 18:28 Tylenol - PO Q6H PRN FEVER OR PAIN Calcium Carbonate/Cholecalciferol 1 tab 03/24/17 22:00 03/29/17 10:42 Os-Ilan 500+D - PO 1 tab BID [facility] Administration Dexamethasone Sodium Phosphate 4 mg 03/15/17 09:00 03/29/17 14:30 Decadron Injection - IVPB 4 mg Q6H-IV [facility] Administration Enoxaparin Sodium 40 mg 03/28/17 10:00 Lovenox - SQ DAILY [facility] Sodium Chloride 1,000 mls @ 60 mls/hr 03/29/17 14:45 1/2 Normal Saline IV ASDIR [facility] Pantoprazole Sodium 40 mg 03/26/17 10:00 03/29/17 10:42 Protonix - PO Not Given DAILY [facility] Polyethylene Glycol 17 gm 03/28/17 10:00 03/29/17 14:50 Miralax (For Daily Use) - PO Not Given DAILY [facility] Sodium Bicarbonate 325 mg 03/24/17 15:45 03/29/17 10:42 Sodium Bicarbonate - PO 325 mg DAILY [facility] Administration Impression 1. multiple myeloma 2. SHANIA 3. anemia 4. Chol 5. COPD 6. anemia 7. compression fracture 8. small pleural effusion 9. plural effusion Plan - check cmp - will check mag and phos - cont fluids - derm eval - suspect renal involvement from myeloma Dr Soto
[2017-03-30] MEDS: DEXAMETHASONE SOD PHOSPHATE 4 MG/1 ML VIAL IVPB SCH ×4 (02:32→22:39)
[2017-03-30 08:41] LABS: BASOPHIL 0.1 % (0-2.0); MCH 30.6 pg (25.7-33.7); MCHC 33.6 g/dl (32.0-36.0); MEAN CELL VOLUME 91.2 fl (80-96); MEAN PLT VOLUME 7.5 fl (7.5-11.1); NEUTROPHILS 90.3 % (42.8-82.8); PLATELET COUNT 128 K/MM3 (134-434); RDW 16.2 % (11.6-15.6); WHITE BLOOD COUNT 6.4 K/mm3 (4.0-10.0)
--- NOTE | 2017-03-30 08:53 | PN ---
Progress Note (short form) - Note Progress Note: Radiation Oncology Tolerating RT without adverse toxicity to date. CBC stable. Cont RT to T10 spine region (@12.5Gy) 5 fx remaining including today. OOB and mobilization with assistance as tolerated. Cont decadron. May cont RT as outpatient. Dtr updated by phone.
[2017-03-30 09:10] LABS: ALBUMIN 3.1 g/dl (3.4-5.0); ANION GAP 9 (8-16); CALCIUM 7.3 mg/dL (8.5-10.1); CO2 23 mmol/L (21-32); GLUCOSE,RANDOM 101 mg/dL (74-106); MAGNESIUM 1.8 mg/dL (1.8-2.4)
[2017-03-30 09:14] LABS: ALK PHOS 53 U/L (45-117); BILIRUBIN,TOTAL 0.5 mg/dL (0.2-1.0); CREATININE 2.1 mg/dL (0.55-1.02); PHOSPHOROUS 2.9 mg/dL (2.5-4.9); SGOT/AST 24 U/L (15-37); SGPT/ALT 15 U/L (12-78); TOT PROT 6.3 g/dl (6.4-8.2)
[2017-03-30 10:22] LABS: URINE APPEARANCE CLEAR; URINE BILIRUBIN NEGATIVE (NEGATIVE); URINE BLOOD NEGATIVE (NEGATIVE); URINE COLOR STRAW; URINE GLUCOSE (UA) NEGATIVE (NEGATIVE); URINE KETONE NEGATIVE (NEGATIVE); URINE NITRITE NEGATIVE (NEGATIVE); URINE PROTEIN NEGATIVE (NEGATIVE); URINE UROBILINOGEN NEGATIVE mg/dL (0.2-1.0)
[2017-03-30] MEDS: PANTOPRAZOLE 40 MG TABLET (FP) PO SCH (10:42)
[2017-03-30] MEDS: POLYETHYLENE GLYCOL 3350 119 GM BTL PO SCH (10:42)
[2017-03-30] MEDS: CALCIUM 500MG/VIT-D 200 UNITS COMBO TABLET (FP) PO SCH ×2 (10:42→22:39)
[2017-03-30] MEDS ORDERED: PT OWN MED DRAWER 7, Y5N ONE (11:06)
[2017-03-30] MEDS: SODIUM BICARBONATE 325 MG TABLET PO SCH (11:16)
--- NOTE | 2017-03-30 11:38 | PN ---
Progress Note, Physician History of Present Illness: Pt seen and examined at bedside. She is awake and appears comfortable. - Current Medication List Current Medications: Active Medications Acetaminophen (Tylenol -) 325 mg PO Q6H PRN PRN Reason: FEVER OR PAIN Calcium Carbonate/Cholecalciferol (Os-Ilan 500+D -) 1 tab PO BID [facility] Last Admin: 03/30/17 10:42 Dose: 1 tab Dexamethasone Sodium Phosphate (Decadron Injection -) 4 mg IVPB Q6H-IV [facility] Last Admin: 03/30/17 10:42 Dose: 4 mg Enoxaparin Sodium (Lovenox -) 40 mg SQ DAILY [facility] Sodium Chloride (1/2 Normal Saline) 1,000 mls @ 60 mls/hr IV ASDIR [facility] Last Admin: 03/29/17 22:18 Dose: 60 mls/hr Pantoprazole Sodium (Protonix -) 40 mg PO DAILY [facility] Last Admin: 03/30/17 10:42 Dose: Not Given Polyethylene Glycol (Miralax (For Daily Use) -) 17 gm PO DAILY [facility] Last Admin: 03/30/17 10:42 Dose: Not Given Sodium Bicarbonate (Sodium Bicarbonate -) 325 mg PO DAILY [facility] Last Admin: 03/30/17 11:16 Dose: 325 mg - Objective Vital Signs: Vital Signs Temperature 98 F 03/30/17 06:00 Pulse Rate 76 03/30/17 06:00 Respiratory Rate 18 03/30/17 06:00 Blood Pressure 128/80 03/30/17 06:00 O2 Sat by Pulse Oximetry (%) 97 03/29/17 21:00 Constitutional: Yes: Calm Eyes: Yes: Conjunctiva Clear HENT: Yes: Atraumatic Cardiovascular: Yes: S1, S2 Respiratory: Yes: CTA Bilaterally Gastrointestinal: Yes: Soft Musculoskeletal: Yes: Muscle Weakness Edema: Yes Edema: LLE: Trace, RLE: Trace Neurological: Yes: Oriented Psychiatric: Yes: Oriented Labs: CBC, BMP 03/30/17 07:00 03/30/17 07:00 INR, PTT INR 1.03 (0.82-1.09) 03/16/17 06:00 Assessment/Plan Current Medications Generic Name Dose Route Start Last Admin Trade Name Freq PRN Reason Stop Dose Admin Acetaminophen 325 mg 03/08/17 18:28 Tylenol - PO Q6H PRN FEVER OR PAIN Calcium Carbonate/Cholecalciferol 1 tab 03/24/17 22:00 03/30/17 10:42 Os-Ilan 500+D - PO 1 tab BID [facility] Administration Dexamethasone Sodium Phosphate 4 mg 03/15/17 09:00 03/30/17 10:42 Decadron Injection - IVPB 4 mg Q6H-IV [facility] Administration Enoxaparin Sodium 40 mg 03/28/17 10:00 Lovenox - SQ DAILY [facility] Sodium Chloride 1,000 mls @ 60 mls/hr 03/29/17 14:45 03/29/17 22:18 1/2 Normal Saline IV 60 mls/hr ASDIR [facility] Administration Pantoprazole Sodium 40 mg 03/26/17 10:00 03/30/17 10:42 Protonix - PO Not Given DAILY [facility] Polyethylene Glycol 17 gm 03/28/17 10:00 03/30/17 10:42 Miralax (For Daily Use) - PO Not Given DAILY [facility] Sodium Bicarbonate 325 mg 03/24/17 15:45 03/30/17 11:16 Sodium Bicarbonate - PO 325 mg DAILY [facility] Administration Laboratory Tests 03/26/17 03/30/17 06:05 07:00 Sodium 132 L Potassium 4.3 D 5.1 D Creatinine 2.0 H Phosphorus 2.9 Magnesium 1.8 Impression 1. multiple myeloma 2. SHANIA 3. anemia 4. Chol 5. COPD 6. anemia 7. compression fracture 8. small pleural effusion 9. plural effusion Plan - brooks switch fluids to NS - repeat labs in am - low potassium diet - radiation as scheduled - suspect renal involvement from myeloma Dr Soto
[2017-03-30] MEDS ORDERED: SODIUM CHLORIDE 1,000 ML IV SCH (11:45)
[2017-03-30 14:01] LABS: URINE LEUK ESTERASE TRACE (NEGATIVE)
[2017-03-30 14:02] LABS: URINE BACTERIA FEW /hpf (NEGATIVE); URINE RBC 0-3 /hpf (0-3); URINE WBC 0-3 /hpf (3-5)
[2017-03-30] MEDS ORDERED: ENOXAPARIN NA (PORCINE) 30 MG/0.3 ML DISP.SYRIN SQ ONE (16:36)
--- NOTE | 2017-03-30 20:11 | PN ---
Progress Note (short form) - Note Progress Note: PAtient seen and examined no specific c/o AFVSS Cor: RSR, No murmurs, No gallops Lungs: Clear to P&A Abd: Soft, Normal bowel sounds, No organomegaly Ext:2+ edema b/l Abnormal Lab Results 03/30/17 03/30/17 03/30/17 07:00 07:00 08:15 RBC 2.68 L Hgb 8.2 L Hct 24.5 L RDW 16.2 H Plt Count 128 L Neutrophils % 90.3 H D Lymphocytes % 3.6 L D Sodium 132 L BUN 80 H Creatinine 2.1 H Calcium 7.3 L Total Protein 6.3 L Albumin 3.1 L Ur Leukocyte Esterase Trace H A/P 81 y/o patient with myeloma, admitted with back pain MRI T/L spine with comprssion fx/epidural xtension Also SHANIA progressing myeloma on decadron/started RT to vertebral compression/epidural disease protonix DVT prophylaxis---discussed wtih patient on iv hydration/monitoring renal function closely
[2017-03-30] MEDS: HEPARIN NA (PORCINE) 5,000 UNITS/ML 1ML VIAL SQ SCH (22:46)
[2017-03-31] MEDS: DEXAMETHASONE SOD PHOSPHATE 4 MG/1 ML VIAL IVPB SCH ×4 (02:14→22:45)
[2017-03-31 08:28] LABS: ALBUMIN 3.2 g/dl (3.4-5.0); ANION GAP 10 (8-16); CALCIUM 7.5 mg/dL (8.5-10.1); CO2 23 mmol/L (21-32); GLUCOSE,RANDOM 108 mg/dL (74-106)
[2017-03-31 08:31] LABS: ALK PHOS 63 U/L (45-117); BILIRUBIN,TOTAL 0.3 mg/dL (0.2-1.0); SGOT/AST 26 U/L (15-37); SGPT/ALT 16 U/L (12-78); TOT PROT 6.5 g/dl (6.4-8.2)
[2017-03-31] MEDS ORDERED: ENOXAPARIN NA (PORCINE) 30 MG/0.3 ML DISP.SYRIN SQ SCH (10:00)
[2017-03-31] MEDS: POLYETHYLENE GLYCOL 3350 119 GM BTL PO SCH (10:16)
[2017-03-31] MEDS: CALCIUM 500MG/VIT-D 200 UNITS COMBO TABLET (FP) PO SCH ×2 (10:16→22:45)
[2017-03-31] MEDS: HEPARIN NA (PORCINE) 5,000 UNITS/ML 1ML VIAL SQ SCH ×2 (10:17→22:44)
[2017-03-31] MEDS: PANTOPRAZOLE 40 MG TABLET (FP) PO SCH (10:17)
[2017-03-31] MEDS: SODIUM BICARBONATE 325 MG TABLET PO SCH (10:19)
--- NOTE | 2017-03-31 14:13 | PN ---
Progress Note (short form) - Note Progress Note: ID Consult dictated Asymptomatic bacteruria Myeloma Multiple compression fractures Observe off antibiotics
--- NOTE | 2017-03-31 15:58 | PN ---
Progress Note, Physician History of Present Illness: Pt seen and examined at bedside. She is awake and appears comfortable. She denies shortness of breath. She does have some lower extremity edema. - Current Medication List Current Medications: Active Medications Acetaminophen (Tylenol -) 325 mg PO Q6H PRN PRN Reason: FEVER OR PAIN Calcium Carbonate/Cholecalciferol (Os-Ilan 500+D -) 1 tab PO BID [facility] Last Admin: 03/31/17 10:16 Dose: 1 tab Dexamethasone Sodium Phosphate (Decadron Injection -) 4 mg IVPB Q6H-IV [facility] Last Admin: 03/31/17 10:16 Dose: 4 mg Heparin Sodium (Porcine) (Heparin -) 5,000 unit SQ BID [facility] Last Admin: 03/31/17 10:17 Dose: Not Given Pantoprazole Sodium (Protonix -) 40 mg PO DAILY [facility] Last Admin: 03/31/17 10:17 Dose: Not Given Polyethylene Glycol (Miralax (For Daily Use) -) 17 gm PO DAILY [facility] Last Admin: 03/31/17 10:16 Dose: Not Given Sodium Bicarbonate (Sodium Bicarbonate -) 325 mg PO DAILY [facility] Last Admin: 03/31/17 10:19 Dose: 325 mg - Objective Vital Signs: Vital Signs Temperature 98.0 F 03/31/17 15:04 Pulse Rate 81 03/31/17 15:04 Respiratory Rate 18 03/31/17 15:04 Blood Pressure 119/75 03/31/17 15:04 O2 Sat by Pulse Oximetry (%) 96 03/30/17 21:00 Constitutional: Yes: Calm Eyes: Yes: Conjunctiva Clear HENT: Yes: Atraumatic Neck: Yes: Supple Cardiovascular: Yes: S1, S2 Respiratory: Yes: CTA Bilaterally Gastrointestinal: Yes: Soft Genitourinary: Yes: WNL Musculoskeletal: Yes: Back Pain Edema: Yes Edema: LLE: Trace, RLE: Trace Neurological: Yes: Oriented Psychiatric: Yes: Oriented Labs: CBC, BMP 03/30/17 07:00 03/31/17 07:00 INR, PTT INR 1.03 (0.82-1.09) 03/16/17 06:00 Assessment/Plan Current Medications Generic Name Dose Route Start Last Admin Trade Name Freq PRN Reason Stop Dose Admin Acetaminophen 325 mg 03/08/17 18:28 Tylenol - PO Q6H PRN FEVER OR PAIN Calcium Carbonate/Cholecalciferol 1 tab 03/24/17 22:00 03/31/17 10:16 Os-Ilan 500+D - PO 1 tab BID [facility] Administration Dexamethasone Sodium Phosphate 4 mg 03/15/17 09:00 03/31/17 10:16 Decadron Injection - IVPB 4 mg Q6H-IV [facility] Administration Heparin Sodium (Porcine) 5,000 unit 03/30/17 22:00 03/31/17 10:17 Heparin - SQ Not Given BID [facility] Pantoprazole Sodium 40 mg 03/26/17 10:00 03/31/17 10:17 Protonix - PO Not Given DAILY [facility] Polyethylene Glycol 17 gm 03/28/17 10:00 03/31/17 10:16 Miralax (For Daily Use) - PO Not Given DAILY [facility] Sodium Bicarbonate 325 mg 03/24/17 15:45 03/31/17 10:19 Sodium Bicarbonate - PO 325 mg DAILY [facility] Administration Impression 1. multiple myeloma 2. SHANIA 3. anemia 4. Chol 5. COPD 6. anemia 7. compression fracture 8. small pleural effusion 9. plural effusion Plan - will continue with ND - monitor bmp - cont with po bicarb at current dose - low potassium diet - radiation as scheduled - suspect renal involvement from myeloma - discussed with family Dr Soto
--- NOTE | 2017-03-31 17:56 | PN ---
Progress Note (short form) - Note Progress Note: PAtient seen and examined no specific c/o Last Vital Signs Temp Pulse Resp BP Pulse Ox 98.0 F 81 18 119/75 96 03/31/17 15:04 03/31/17 15:04 03/31/17 15:04 03/31/17 15:04 03/30/17 21:00 Cor: RSR, No murmurs, No gallops Lungs: decreased Lt. base breath sounds Abd: Soft, Normal bowel sounds, No organomegaly Ext:2+ edema b/l Abnormal Lab Results 03/31/17 07:00 Sodium 134 L BUN 78 H Creatinine 2.0 H Random Glucose 108 H Calcium 7.5 L Albumin 3.2 L A/P 81 y/o patient with myeloma, admitted with back pain MRI T/L spine with comprssion fx/epidural xtension Also SHANIA progressing myeloma on decadron/started RT to vertebral compression/epidural disease protonix DVT prophylaxis---discussed wtih patient on iv hydration/monitoring renal function closely
[2017-04-01] MEDS: SODIUM CHLORIDE 1,000 ML IV SCH ×3 (01:23→17:42)
[2017-04-01] MEDS: DEXAMETHASONE SOD PHOSPHATE 4 MG/1 ML VIAL IVPB SCH ×4 (02:18→21:31)
--- NOTE | 2017-04-01 07:27 | CONS ---
DATE OF CONSULTATION: DATE OF DICTATION: 03/31/2017 HISTORY OF PRESENT ILLNESS: An 81-year-old female who is evaluated for positive urine culture. She has a history of refractory multiple myeloma. She was admitted to the hospital on March 08, 2017, with intractable back pain. She was found on imaging study to have multiple vertebral compression fractures of the thoracic vertebrae. She was treated with Decadron and discussions are ongoing with regard to need for neurosurgery, chemotherapy, and radiation therapy. 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 She denies any urinary tract symptoms. She denies any dysuria or hematuria. No complaints of suprapubic or flank pain. She has been afebrile with a normal white blood cell count. PAST MEDICAL HISTORY: Positive for myeloma, multiple vertebral compression fractures, COPD, hypercalcemia, hyperlipidemia, osteoarthritis. PAST SURGICAL HISTORY: Status post multiple thoracic vertebrae compression fractures. ALLERGIES: No known allergies. SYSTEMS REVIEW:Neurologic: No loss of consciousness, seizure activity, or focal weakness. Cardiac: Negative chest pain or palpitations. Respiratory: Negative cough or sputum production. Gastrointestinal: Negative vomiting or diarrhea. Genitourinary: As per HPI. LABORATORY DATA: White count 6.4, platelets 128. BUN 78, creatinine 2.0. Urinalysis: White cells 0 to 3. Urine culture: Gram-negative rods 80,000 to 90,000. PHYSICAL EXAMINATION:General: She is out of bed to chair. She is in no acute distress. Vital Signs: Temperature 97.7, blood pressure 133/75, pulse 68, regular, respiration 18 per minute. HEENT: Sclerae anicteric. Cardiac: Heart sounds S1, S2. Lungs: Clear. Abdomen: Obese, soft. No suprapubic or flank tenderness. Extremities: Edema 1+. IMPRESSION:1. Asymptomatic bacteriuria. 2. Multiple myeloma. 3. Multiple compression fractures. RECOMMENDATIONS: No treatment for asymptomatic bacteriuria. No evidence for systemic infection. Thank you for the kind referral. FLORI GUEVARA M.D. [id number]
[2017-04-01 07:50] LABS: CO2 25 mmol/L (21-32); CREATININE 1.8 mg/dL (0.55-1.02); GLUCOSE,RANDOM 93 mg/dL (74-106)
[2017-04-01 08:00] LABS: BASOPHIL 0.1 % (0-2.0); MCH 31.2 pg (25.7-33.7); MCHC 33.9 g/dl (32.0-36.0); MEAN CELL VOLUME 91.9 fl (80-96); MEAN PLT VOLUME 7.5 fl (7.5-11.1); NEUTROPHILS 90.4 % (42.8-82.8); PLATELET COUNT 116 K/MM3 (134-434); RDW 15.7 % (11.6-15.6); WHITE BLOOD COUNT 4.6 K/mm3 (4.0-10.0)
[2017-04-01 08:23] LABS: ANION GAP 7 (8-16); CALCIUM 6.9 mg/dL (8.5-10.1)
[2017-04-01] MEDS: CALCIUM GLUCONATE 10% - 1,000 MG/10 ML VIAL IVPB ONE ×2 (11:02→11:21)
[2017-04-01] MEDS: HEPARIN NA (PORCINE) 5,000 UNITS/ML 1ML VIAL SQ SCH ×2 (11:03→21:59)
[2017-04-01] MEDS: POLYETHYLENE GLYCOL 3350 119 GM BTL PO SCH (11:03)
[2017-04-01] MEDS: PANTOPRAZOLE 40 MG TABLET (FP) PO SCH (11:03)
[2017-04-01] MEDS: CALCIUM 500MG/VIT-D 200 UNITS COMBO TABLET (FP) PO SCH ×2 (11:03→21:32)
[2017-04-01] MEDS ORDERED: CALCIUM GLUCONATE 10% - 1,000 MG/10 ML VIAL ONE (11:18)
--- NOTE | 2017-04-01 16:12 | PN ---
Progress Note, Physician History of Present Illness: Pt seen and examined at bedside. She is awake and alert. She denies shortness of breath. - Current Medication List Current Medications: Active Medications Acetaminophen (Tylenol -) 325 mg PO Q6H PRN PRN Reason: FEVER OR PAIN Calcium Carbonate/Cholecalciferol (Os-Ilan 500+D -) 1 tab PO BID [facility] Last Admin: 04/01/17 11:03 Dose: 1 tab Dexamethasone Sodium Phosphate (Decadron Injection -) 4 mg IVPB Q6H-IV [facility] Last Admin: 04/01/17 11:03 Dose: 4 mg Heparin Sodium (Porcine) (Heparin -) 5,000 unit SQ BID [facility] Last Admin: 04/01/17 11:03 Dose: Not Given Sodium Chloride (Normal Saline -) 1,000 mls @ 50 mls/hr IV ASDIR [facility] Last Admin: 04/01/17 15:51 Dose: 50 mls/hr Pantoprazole Sodium (Protonix -) 40 mg PO DAILY [facility] Last Admin: 04/01/17 11:03 Dose: Not Given Polyethylene Glycol (Miralax (For Daily Use) -) 17 gm PO DAILY [facility] Last Admin: 04/01/17 11:03 Dose: Not Given Sodium Bicarbonate (Sodium Bicarbonate -) 325 mg PO DAILY [facility] Last Admin: 03/31/17 10:19 Dose: 325 mg - Objective Vital Signs: Vital Signs Temperature 98.1 F 04/01/17 05:54 Pulse Rate 65 04/01/17 05:54 Respiratory Rate 18 04/01/17 09:00 Blood Pressure 128/71 04/01/17 05:54 O2 Sat by Pulse Oximetry (%) 96 04/01/17 09:00 Constitutional: Yes: Calm Eyes: Yes: Conjunctiva Clear HENT: Yes: Atraumatic Neck: Yes: Supple Cardiovascular: Yes: S1, S2 Respiratory: Yes: CTA Bilaterally Gastrointestinal: Yes: Soft Genitourinary: Yes: WNL Musculoskeletal: Yes: Back Pain, Muscle Weakness Edema: Yes Edema: LLE: Trace, RLE: Trace Neurological: Yes: Oriented Psychiatric: Yes: Oriented Labs: CBC, BMP 04/01/17 06:00 04/01/17 06:00 INR, PTT INR 1.03 (0.82-1.09) 03/16/17 06:00 Assessment/Plan Current Medications Generic Name Dose Route Start Last Admin Trade Name Freq PRN Reason Stop Dose Admin Acetaminophen 325 mg 03/08/17 18:28 Tylenol - PO Q6H PRN FEVER OR PAIN Calcium Carbonate/Cholecalciferol 1 tab 03/24/17 22:00 04/01/17 11:03 Os-Ilan 500+D - PO 1 tab BID [facility] Administration Dexamethasone Sodium Phosphate 4 mg 03/15/17 09:00 04/01/17 11:03 Decadron Injection - IVPB 4 mg Q6H-IV [facility] Administration Heparin Sodium (Porcine) 5,000 unit 03/30/17 22:00 04/01/17 11:03 Heparin - SQ Not Given BID [facility] Sodium Chloride 1,000 mls @ 50 mls/hr 03/31/17 16:00 04/01/17 15:51 Normal Saline - IV 50 mls/hr ASDIR [facility] Administration Pantoprazole Sodium 40 mg 03/26/17 10:00 04/01/17 11:03 Protonix - PO Not Given DAILY [facility] Polyethylene Glycol 17 gm 03/28/17 10:00 04/01/17 11:03 Miralax (For Daily Use) - PO Not Given DAILY [facility] Sodium Bicarbonate 325 mg 03/24/17 15:45 03/31/17 10:19 Sodium Bicarbonate - PO 325 mg DAILY [facility] Administration Impression 1. multiple myeloma 2. SHANIA 3. anemia 4. Chol 5. COPD 6. anemia 7. compression fracture 8. small pleural effusion 9. plural effusion Plan - cont fluids - replace calcium - can stop bicarb - sodium improving - low potassium diet - repeat labs in am - suspect renal involvement from myeloma - discussed with family Dr Soto
[2017-04-01] MEDS: SODIUM BICARBONATE 325 MG TABLET PO SCH (16:19)
--- NOTE | 2017-04-02 01:41 | PN ---
Progress Note (short form) - Note Progress Note: PAtient seen and examined no specific c/o Cor: RSR, No murmurs, No gallops Lungs: decreased Lt. base breath sounds Abd: Soft, Normal bowel sounds, No organomegaly Ext:2+ edema b/l Last Vital Signs Temp Pulse Resp BP Pulse Ox 98.0 F 82 18 104/62 96 04/01/17 18:25 04/01/17 18:25 04/01/17 18:25 04/01/17 18:25 04/01/17 09:00 CBC, BMP 04/01/17 06:00 04/01/17 06:00 Current Medications Generic Name Dose Route Start Last Admin Trade Name Freq PRN Reason Stop Dose Admin Acetaminophen 325 mg 03/08/17 18:28 Tylenol - PO Q6H PRN FEVER OR PAIN Calcium Carbonate/Cholecalciferol 1 tab 03/24/17 22:00 04/01/17 21:32 Os-Ilan 500+D - PO 1 tab BID [facility] Administration Dexamethasone Sodium Phosphate 4 mg 03/15/17 09:00 04/01/17 21:31 Decadron Injection - IVPB 4 mg Q6H-IV [facility] Administration Heparin Sodium (Porcine) 5,000 unit 03/30/17 22:00 04/01/17 21:59 Heparin - SQ Not Given BID [facility] Sodium Chloride 1,000 mls @ 65 mls/hr 04/01/17 16:12 04/01/17 17:42 Normal Saline - IV Not Given ASDIR [facility] Pantoprazole Sodium 40 mg 03/26/17 10:00 04/01/17 11:03 Protonix - PO Not Given DAILY [facility] Polyethylene Glycol 17 gm 03/28/17 10:00 04/01/17 11:03 Miralax (For Daily Use) - PO Not Given DAILY [facility] A/P 81 y/o patient with myeloma, admitted with back pain MRI T/L spine with comprssion fx/epidural xtension Also SHANIA progressing myeloma on decadron/started RT to vertebral compression/epidural disease protonix DVT prophylaxis on iv hydration/monitoring renal function closely cbc in the am, prbc needs to be considered discussed wuth daughters including the likely need for transfusion tomorrow
[2017-04-02] MEDS: DEXAMETHASONE SOD PHOSPHATE 4 MG/1 ML VIAL IVPB SCH ×2 (02:17→09:13)
[2017-04-02] MEDS: SODIUM CHLORIDE 1,000 ML IV SCH ×3 (05:53→17:52)
[2017-04-02 08:08] LABS: MCHC 33.3 g/dl (32.0-36.0); MEAN CELL VOLUME 93.2 fl (80-96); MEAN PLT VOLUME 7.6 fl (7.5-11.1); PLATELET COUNT 119 K/MM3 (134-434); RDW 16.4 % (11.6-15.6); WHITE BLOOD COUNT 4.5 K/mm3 (4.0-10.0)
[2017-04-02 08:59] LABS: URINE APPEARANCE SLCLOUDY; URINE BILIRUBIN NEGATIVE (NEGATIVE); URINE BLOOD NEGATIVE (NEGATIVE); URINE COLOR STRAW; URINE GLUCOSE (UA) NEGATIVE (NEGATIVE); URINE KETONE NEGATIVE (NEGATIVE); URINE NITRITE POSITIVE (NEGATIVE); URINE PROTEIN NEGATIVE (NEGATIVE); URINE UROBILINOGEN NEGATIVE mg/dL (0.2-1.0)
[2017-04-02 09:08] LABS: URINE BACTERIA RARE /hpf (NONE SEEN); URINE RBC 1; URINE WBC 25
[2017-04-02 09:16] LABS: ALBUMIN 3.3 g/dl (3.4-5.0); ALK PHOS 55 U/L (45-117); ANION GAP 9 (8-16); BILIRUBIN,TOTAL 0.6 mg/dL (0.2-1.0); CALCIUM 7.7 mg/dL (8.5-10.1); CO2 23 mmol/L (21-32); CREATININE 1.6 mg/dL (0.55-1.02); GLUCOSE,RANDOM 88 mg/dL (74-106); SGOT/AST 26 U/L (15-37); SGPT/ALT 17 U/L (12-78); TOT PROT 6.3 g/dl (6.4-8.2)
[2017-04-02] MEDS: CALCIUM 500MG/VIT-D 200 UNITS COMBO TABLET (FP) PO SCH ×2 (10:13→21:56)
[2017-04-02] MEDS: PANTOPRAZOLE 40 MG TABLET (FP) PO SCH (10:14)
[2017-04-02] MEDS: HEPARIN NA (PORCINE) 5,000 UNITS/ML 1ML VIAL SQ SCH ×2 (10:14→21:56)
[2017-04-02] MEDS: POLYETHYLENE GLYCOL 3350 119 GM BTL PO SCH (10:14)
--- NOTE | 2017-04-02 13:51 | PN ---
Progress Note, Physician History of Present Illness: Pt seen and examined at bedside. She is awake and alert. She has back pain today. - Current Medication List Current Medications: Active Medications Acetaminophen (Tylenol -) 325 mg PO Q6H PRN PRN Reason: FEVER OR PAIN Calcium Carbonate/Cholecalciferol (Os-Ilan 500+D -) 1 tab PO BID [facility] Last Admin: 04/02/17 10:13 Dose: 1 tab Dexamethasone Sodium Phosphate (Decadron Injection -) 4 mg IVPB Q6H-IV [facility] Last Admin: 04/02/17 09:13 Dose: 4 mg Heparin Sodium (Porcine) (Heparin -) 5,000 unit SQ BID [facility] Last Admin: 04/02/17 10:14 Dose: Not Given Sodium Chloride (Normal Saline -) 1,000 mls @ 65 mls/hr IV ASDIR [facility] Last Admin: 04/02/17 05:53 Dose: 65 mls/hr Pantoprazole Sodium (Protonix -) 40 mg PO DAILY [facility] Last Admin: 04/02/17 10:14 Dose: Not Given Polyethylene Glycol (Miralax (For Daily Use) -) 17 gm PO DAILY [facility] Last Admin: 04/02/17 10:14 Dose: Not Given - Objective Vital Signs: Vital Signs Temperature 98.1 F 04/02/17 09:50 Pulse Rate 77 04/02/17 09:50 Respiratory Rate 16 04/02/17 09:50 Blood Pressure 123/75 04/02/17 09:50 O2 Sat by Pulse Oximetry (%) 97 04/02/17 09:00 Constitutional: Yes: Calm Eyes: Yes: Conjunctiva Clear HENT: Yes: Atraumatic Neck: Yes: Supple Cardiovascular: Yes: S1, S2 Respiratory: Yes: CTA Bilaterally Gastrointestinal: Yes: Normal Bowel Sounds, Soft Genitourinary: Yes: WNL Musculoskeletal: Yes: Back Pain, Muscle Weakness Edema: Yes Edema: LLE: Trace, RLE: Trace Neurological: Yes: Oriented Psychiatric: Yes: Oriented Labs: CBC, BMP 04/02/17 06:00 04/02/17 06:00 INR, PTT INR 1.03 (0.82-1.09) 03/16/17 06:00 Assessment/Plan Current Medications Generic Name Dose Route Start Last Admin Trade Name Freq PRN Reason Stop Dose Admin Acetaminophen 325 mg 03/08/17 18:28 Tylenol - PO Q6H PRN FEVER OR PAIN Calcium Carbonate/Cholecalciferol 1 tab 03/24/17 22:00 04/02/17 10:13 Os-Ilan 500+D - PO 1 tab BID [facility] Administration Dexamethasone Sodium Phosphate 4 mg 03/15/17 09:00 04/02/17 09:13 Decadron Injection - IVPB 4 mg Q6H-IV [facility] Administration Heparin Sodium (Porcine) 5,000 unit 03/30/17 22:00 04/02/17 10:14 Heparin - SQ Not Given BID [facility] Sodium Chloride 1,000 mls @ 65 mls/hr 04/01/17 16:12 04/02/17 05:53 Normal Saline - IV 65 mls/hr ASDIR [facility] Administration Pantoprazole Sodium 40 mg 03/26/17 10:00 04/02/17 10:14 Protonix - PO Not Given DAILY [facility] Polyethylene Glycol 17 gm 03/28/17 10:00 04/02/17 10:14 Miralax (For Daily Use) - PO Not Given DAILY [facility] Impression 1. multiple myeloma 2. SHANIA 3. anemia 4. Chol 5. COPD 6. anemia 7. compression fracture 8. small pleural effusion 9. plural effusion Plan - cont current meds - cont fluids - monitor lytes - renal function has been stabilizing - suspect renal involvement from myeloma - discussed with family Dr Soto
--- NOTE | 2017-04-02 14:52 | PN ---
Progress Note (short form) - Note Progress Note: PAtient seen and examined c/o back pain Cor: RSR, No murmurs, No gallops Lungs: decreased Lt. base breath sounds Abd: Soft, Normal bowel sounds, No organomegaly Ext:1+ edema b/l Last Vital Signs Temp Pulse Resp BP Pulse Ox 98.1 F 77 16 123/75 97 04/02/17 09:50 04/02/17 09:50 04/02/17 09:50 04/02/17 09:50 04/02/17 09:00 CBC, BMP 04/02/17 06:00 04/02/17 06:00 Current Medications Generic Name Dose Route Start Last Admin Trade Name Freq PRN Reason Stop Dose Admin Acetaminophen 325 mg 03/08/17 18:28 Tylenol - PO Q6H PRN FEVER OR PAIN Calcium Carbonate/Cholecalciferol 1 tab 03/24/17 22:00 04/02/17 10:13 Os-Ilan 500+D - PO 1 tab BID [facility] Administration Dexamethasone 4 mg 04/02/17 15:00 Decadron - PO Q6H [facility] Heparin Sodium (Porcine) 5,000 unit 03/30/17 22:00 04/02/17 10:14 Heparin - SQ Not Given BID [facility] Sodium Chloride 1,000 mls @ 65 mls/hr 04/01/17 16:12 04/02/17 05:53 Normal Saline - IV 65 mls/hr ASDIR [facility] Administration Pantoprazole Sodium 40 mg 03/26/17 10:00 04/02/17 10:14 Protonix - PO Not Given DAILY [facility] Polyethylene Glycol 17 gm 03/28/17 10:00 04/02/17 10:14 Miralax (For Daily Use) - PO Not Given DAILY [facility] A/P 81 y/o patient with myeloma, admitted with back pain MRI T/L spine with comprssion fx/epidural xtension Also SHANIA progressing myeloma Ongoing RT. DVT prophylaxis, refusing, discussed , continues to refuse monitoring renal function closely transfuse today xray of the back as per their request. taper steroids: today changed to PO dex. will need to taper next week am labs d/w family
[2017-04-02] MEDS: DEXAMETHASONE 4 MG TABLET (FP) PO SCH ×2 (18:28→23:35)
[2017-04-02 20:20] LABS: URINE LEUK ESTERASE 1+ (NEGATIVE)
[2017-04-03] MEDS: DEXAMETHASONE 4 MG TABLET (FP) PO SCH ×4 (05:06→20:28)
[2017-04-03] MEDS: HEPARIN NA (PORCINE) 5,000 UNITS/ML 1ML VIAL SQ SCH ×2 (09:55→21:21)
[2017-04-03] MEDS: POLYETHYLENE GLYCOL 3350 119 GM BTL PO SCH (09:55)
[2017-04-03] MEDS: CALCIUM 500MG/VIT-D 200 UNITS COMBO TABLET (FP) PO SCH ×2 (09:55→21:19)
[2017-04-03] MEDS: PANTOPRAZOLE 40 MG TABLET (FP) PO SCH (09:55)
--- NOTE | 2017-04-03 15:04 | PN ---
Progress Note, Physician History of Present Illness: Pt seen and examined at bedside. She is awake and alert. She denies shortness of breath. - Current Medication List Current Medications: Active Medications Acetaminophen (Tylenol -) 325 mg PO Q6H PRN PRN Reason: FEVER OR PAIN Calcium Carbonate/Cholecalciferol (Os-Ilan 500+D -) 1 tab PO BID [facility] Last Admin: 04/03/17 09:55 Dose: 1 tab Dexamethasone (Decadron -) 4 mg PO Q6HPO [facility] Last Admin: 04/03/17 11:21 Dose: 4 mg Heparin Sodium (Porcine) (Heparin -) 5,000 unit SQ BID [facility] Last Admin: 04/03/17 09:55 Dose: Not Given Sodium Chloride (Normal Saline -) 1,000 mls @ 65 mls/hr IV ASDIR [facility] Last Admin: 04/02/17 17:52 Dose: Not Given Pantoprazole Sodium (Protonix -) 40 mg PO DAILY [facility] Last Admin: 04/03/17 09:55 Dose: Not Given Polyethylene Glycol (Miralax (For Daily Use) -) 17 gm PO DAILY [facility] Last Admin: 04/03/17 09:55 Dose: Not Given - Objective Vital Signs: Vital Signs Temperature 98.2 F 04/03/17 14:32 Pulse Rate 78 04/03/17 14:32 Respiratory Rate 20 04/03/17 14:32 Blood Pressure 159/84 04/03/17 14:32 O2 Sat by Pulse Oximetry (%) 96 04/03/17 09:00 Constitutional: Yes: Calm Eyes: Yes: Conjunctiva Clear HENT: Yes: Atraumatic Cardiovascular: Yes: S1, S2 Respiratory: Yes: CTA Bilaterally Gastrointestinal: Yes: Soft Genitourinary: Yes: WNL Musculoskeletal: Yes: Muscle Weakness Edema: No Neurological: Yes: Oriented Psychiatric: Yes: Oriented Labs: CBC, BMP 04/02/17 06:00 04/02/17 06:00 INR, PTT INR 1.03 (0.82-1.09) 03/16/17 06:00 Assessment/Plan Current Medications Generic Name Dose Route Start Last Admin Trade Name Freq PRN Reason Stop Dose Admin Acetaminophen 325 mg 03/08/17 18:28 Tylenol - PO Q6H PRN FEVER OR PAIN Calcium Carbonate/Cholecalciferol 1 tab 03/24/17 22:00 04/03/17 09:55 Os-Ilan 500+D - PO 1 tab BID [facility] Administration Dexamethasone 4 mg 04/02/17 18:00 04/03/17 11:21 Decadron - PO 4 mg Q6HPO [facility] Administration Heparin Sodium (Porcine) 5,000 unit 03/30/17 22:00 04/03/17 09:55 Heparin - SQ Not Given BID [facility] Sodium Chloride 1,000 mls @ 65 mls/hr 04/01/17 16:12 04/02/17 17:52 Normal Saline - IV Not Given ASDIR [facility] Pantoprazole Sodium 40 mg 03/26/17 10:00 04/03/17 09:55 Protonix - PO Not Given DAILY [facility] Polyethylene Glycol 17 gm 03/28/17 10:00 04/03/17 09:55 Miralax (For Daily Use) - PO Not Given DAILY [facility] Laboratory Tests 04/02/17 07:30 Urine Protein Negative Urine Blood Negative Impression 1. multiple myeloma 2. SHANIA 3. anemia 4. Chol 5. COPD 6. anemia 7. compression fracture 8. small pleural effusion 9. 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
[2017-04-03] MEDS: SODIUM CHLORIDE 1,000 ML IV SCH (17:38)
[2017-04-03] MEDS: RANITIDINE HCL 150 MG TABLET (FP) PO SCH (20:27)
--- NOTE | 2017-04-03 20:44 | PN ---
Progress Note (short form) - Note Progress Note: Radiation Oncology Tolerating RT. Had PRBC tx this weekend. Follow up CBC. Xray T-L spine w/o significant change. OOB and mobilization with assistance as tolerated. Consider tapering decadron to 4q8hr Cont RT to T10 spine region (@2000cGy), 2 fx remaining. May cont RT as outpatient.
--- NOTE | 2017-04-03 20:55 | PN ---
Progress Note (short form) - Note Progress Note: PAtient seen and examined mild epigastric pain c/o back pain afvss Cor: RSR, No murmurs, No gallops Lungs: decreased Lt. base breath sounds Abd: Soft, Normal bowel sounds, No organomegaly Ext:2+ edema b/l labs/meds reviewed A/P 81 y/o patient with myeloma, admitted with back pain MRI T/L spine with comprssion fx/epidural xtension Also SHANIA progressing myeloma on decadron/started RT to vertebral compression/epidural disease DVT prophylaxis---discussed wtih patient on iv hydration/monitoring renal function closely change protonix to zantac--discussed with daughters/patient ?? reimaging based on clinical course monitor CBC/CMP
[2017-04-03 22:06] LABS: URINE CREATININE < 13.0 mg/dL (20-320)
[2017-04-04] MEDS: DEXAMETHASONE 4 MG TABLET (FP) PO SCH ×5 (01:08→21:35)
[2017-04-04] MEDS: SODIUM CHLORIDE 1,000 ML IV SCH ×2 (02:00→17:11)
[2017-04-04 07:27] LABS: BASOPHIL 0.1 % (0-2.0); MCH 30.7 pg (25.7-33.7); MCHC 34.2 g/dl (32.0-36.0); MEAN CELL VOLUME 89.6 fl (80-96); MEAN PLT VOLUME 7.1 fl (7.5-11.1); NEUTROPHILS 92.5 % (42.8-82.8); PLATELET COUNT 102 K/MM3 (134-434); RDW 16.2 % (11.6-15.6); WHITE BLOOD COUNT 4.4 K/mm3 (4.0-10.0)
[2017-04-04 08:36] LABS: ANION GAP 8 (8-16); CO2 23 mmol/L (21-32); CREATININE 1.5 mg/dL (0.55-1.02); GLUCOSE,RANDOM 108 mg/dL (74-106); SGOT/AST 19 U/L (15-37); SGPT/ALT 17 U/L (12-78)
[2017-04-04 08:56] LABS: ALK PHOS 55 U/L (45-117); BILIRUBIN,TOTAL 0.5 mg/dL (0.2-1.0); TOT PROT 6.1 g/dl (6.4-8.2)
[2017-04-04 09:03] LABS: CALCIUM 6.9 mg/dL (8.5-10.1)
[2017-04-04] MEDS: CALCIUM 500MG/VIT-D 200 UNITS COMBO TABLET (FP) PO SCH ×2 (11:04→21:35)
[2017-04-04] MEDS: HEPARIN NA (PORCINE) 5,000 UNITS/ML 1ML VIAL SQ SCH ×2 (11:04→21:35)
[2017-04-04] MEDS: RANITIDINE HCL 150 MG TABLET (FP) PO SCH (11:04)
[2017-04-04] MEDS: POLYETHYLENE GLYCOL 3350 119 GM BTL PO SCH ×3 (11:05→21:35)
--- NOTE | 2017-04-04 12:58 | PN ---
Progress Note (short form) - Note Progress Note: Radiation Oncology Decadron pills upset her stomach. Back pain controlled. Ambulating per aide. PE abd soft nondistended, skin ok. CBC ok, post transfusion. MM with pathologic fractures/epidural extension. Steroid/RT gastritis. PPI/H2 blockers. Cont RT to T10 spine region (@2250cGy), completes tomorrow. Taper decadron to 4mg q8hr.
--- NOTE | 2017-04-04 15:40 | PN ---
Progress Note, Physician History of Present Illness: Pt seen and examined at bedside. She is awake and alert. She is tolerating diet. - Current Medication List Current Medications: Active Medications Acetaminophen (Tylenol -) 325 mg PO Q6H PRN PRN Reason: FEVER OR PAIN Calcium Carbonate/Cholecalciferol (Os-Ilan 500+D -) 1 tab PO BID [facility] Last Admin: 04/04/17 11:04 Dose: 1 tab Dexamethasone (Decadron -) 4 mg PO Q6HPO [facility] Last Admin: 04/04/17 13:20 Dose: 4 mg Heparin Sodium (Porcine) (Heparin -) 5,000 unit SQ BID [facility] Last Admin: 04/04/17 11:04 Dose: Not Given Sodium Chloride (Normal Saline -) 1,000 mls @ 65 mls/hr IV ASDIR [facility] Last Admin: 04/04/17 02:00 Dose: 65 mls/hr Polyethylene Glycol (Miralax (For Daily Use) -) 17 gm PO TID [facility] Last Admin: 04/04/17 13:20 Dose: 17 gm Ranitidine HCl (Zantac -) 150 mg PO DAILY [facility] Last Admin: 04/04/17 11:04 Dose: 150 mg - Objective Vital Signs: Vital Signs Temperature 98.3 F 04/04/17 15:01 Pulse Rate 83 04/04/17 15:01 Respiratory Rate 20 04/04/17 15:01 Blood Pressure 140/80 04/04/17 15:01 O2 Sat by Pulse Oximetry (%) 96 04/03/17 21:00 Constitutional: Yes: Calm Eyes: Yes: Conjunctiva Clear HENT: Yes: Atraumatic Neck: Yes: Supple Cardiovascular: Yes: S1, S2 Respiratory: Yes: CTA Bilaterally Gastrointestinal: Yes: Soft Genitourinary: Yes: WNL Musculoskeletal: Yes: Back Pain Edema: LLE: Trace, RLE: Trace Integumentary: Yes: WNL Neurological: Yes: Oriented Psychiatric: Yes: Oriented Labs: CBC, BMP 04/04/17 06:00 04/04/17 06:00 INR, PTT INR 1.03 (0.82-1.09) 03/16/17 06:00 Assessment/Plan Current Medications Generic Name Dose Route Start Last Admin Trade Name Freq PRN Reason Stop Dose Admin Acetaminophen 325 mg 03/08/17 18:28 Tylenol - PO Q6H PRN FEVER OR PAIN Calcium Carbonate/Cholecalciferol 1 tab 03/24/17 22:00 04/04/17 11:04 Os-Ilan 500+D - PO 1 tab BID [facility] Administration Dexamethasone 4 mg 04/02/17 18:00 04/04/17 13:20 Decadron - PO 4 mg Q6HPO [facility] Administration Heparin Sodium (Porcine) 5,000 unit 03/30/17 22:00 04/04/17 11:04 Heparin - SQ Not Given BID [facility] Sodium Chloride 1,000 mls @ 65 mls/hr 04/01/17 16:12 04/04/17 02:00 Normal Saline - IV 65 mls/hr ASDIR [facility] Administration Polyethylene Glycol 17 gm 04/04/17 14:00 04/04/17 13:20 Miralax (For Daily Use) - PO 17 gm TID [facility] Administration Ranitidine HCl 150 mg 04/03/17 20:15 04/04/17 11:04 Zantac - PO 150 mg DAILY [facility] Administration Impression 1. multiple myeloma 2. SHANIA 3. anemia 4. Chol 5. COPD 6. anemia 7. compression fracture 8. small pleural effusion 9. plural effusion Plan - can decrease rate of fluids - monitor bmp - urines reviewed - can decrease rate of fluids - renal function is improving - suspect renal involvement from myeloma - will follow Dr Soto
--- NOTE | 2017-04-04 17:52 | PN ---
Progress Note (short form) - Note Progress Note: Patient seen and examined c/o tiredness Cor: RSR, No murmurs, No gallops Lungs: decreased Lt. base breath sounds Abd: Soft, Normal bowel sounds, No organomegaly Ext:1+ edema b/l Last Vital Signs Temp Pulse Resp BP Pulse Ox 98.1 F 77 16 123/75 97 04/02/17 09:50 04/02/17 09:50 04/02/17 09:50 04/02/17 09:50 04/02/17 09:00 CBC, BMP 04/02/17 06:00 04/02/17 06:00 Current Medications Generic Name Dose Route Start Last Admin Trade Name Freq PRN Reason Stop Dose Admin Acetaminophen 325 mg 03/08/17 18:28 Tylenol - PO Q6H PRN FEVER OR PAIN Calcium Carbonate/Cholecalciferol 1 tab 03/24/17 22:00 04/02/17 10:13 Os-Ilan 500+D - PO 1 tab BID TOMÁS Administration Dexamethasone 4 mg 04/02/17 15:00 Decadron - PO Q6H TOMÁS Heparin Sodium (Porcine) 5,000 unit 03/30/17 22:00 04/02/17 10:14 Heparin - SQ Not Given BID TOMÁS Sodium Chloride 1,000 mls @ 65 mls/hr 04/01/17 16:12 04/02/17 05:53 Normal Saline - IV 65 mls/hr ASDIR TOMÁS Administration Pantoprazole Sodium 40 mg 03/26/17 10:00 04/02/17 10:14 Protonix - PO Not Given DAILY TOMÁS Polyethylene Glycol 17 gm 03/28/17 10:00 04/02/17 10:14 Miralax (For Daily Use) - PO Not Given DAILY TOMÁS A/P 81 y/o patient with myeloma, admitted with back pain MRI T/L spine with comprssion fx/epidural xtension Also SHANIA progressing myeloma Ongoing RT. DVT prophylaxis, refusing, discussed , continues to refuse monitoring renal function closely xray of the T/L: reviewed Miralax increased to tid taper steroids: today dex 4mg PO q8h , will continue to taper down this week labs stable d/w family
--- NOTE | 2017-04-04 19:51 | PN ---
Progress Note (short form) - Note Progress Note: Patient seen , examined, and lengthy discussion with family at bedside. Completing RT on 04/05. Steroids being tapered. Family to work with manager clinical services in anticipation of discharge. Short respid at home and then resumption of treatment with chemotherapy. Will work on authorization. Home PT would be beneficial
[2017-04-05] MEDS: SODIUM CHLORIDE 1,000 ML IV SCH ×3 (03:36→14:24)
[2017-04-05] MEDS: RANITIDINE HCL 150 MG TABLET (FP) PO SCH (09:34)
[2017-04-05] MEDS: HEPARIN NA (PORCINE) 5,000 UNITS/ML 1ML VIAL SQ SCH ×2 (09:35→22:50)
[2017-04-05] MEDS: CALCIUM 500MG/VIT-D 200 UNITS COMBO TABLET (FP) PO SCH ×2 (09:35→22:49)
--- NOTE | 2017-04-05 12:32 | PN ---
Progress Note, Physician History of Present Illness: Pt seen and examined at bedside. She is awake and appears comfortable. She is going for her last dose of radiation today. - Current Medication List Current Medications: Active Medications Acetaminophen (Tylenol -) 325 mg PO Q6H PRN PRN Reason: FEVER OR PAIN Calcium Carbonate/Cholecalciferol (Os-Ilan 500+D -) 1 tab PO BID COUNTS INCLUDE 234 BEDS AT THE [facility] Last Admin: 04/05/17 09:35 Dose: 1 tab Dexamethasone (Decadron -) 4 mg PO TID COUNTS INCLUDE 234 BEDS AT THE [facility] Last Admin: 04/04/17 21:35 Dose: 4 mg Heparin Sodium (Porcine) (Heparin -) 5,000 unit SQ BID COUNTS INCLUDE 234 BEDS AT THE [facility] Last Admin: 04/05/17 09:35 Dose: Not Given Sodium Chloride (Normal Saline -) 1,000 mls @ 65 mls/hr IV ASDIR COUNTS INCLUDE 234 BEDS AT THE [facility] Last Admin: 04/05/17 03:36 Dose: 65 mls/hr Polyethylene Glycol (Miralax (For Daily Use) -) 17 gm PO TID COUNTS INCLUDE 234 BEDS AT THE [facility] Last Admin: 04/04/17 21:35 Dose: Not Given Ranitidine HCl (Zantac -) 150 mg PO DAILY COUNTS INCLUDE 234 BEDS AT THE [facility] Last Admin: 04/04/17 11:04 Dose: 150 mg - Objective Vital Signs: Vital Signs Temperature 98.4 F 04/05/17 08:46 Pulse Rate 72 04/05/17 08:46 Respiratory Rate 18 04/05/17 08:46 Blood Pressure 151/87 04/05/17 08:46 O2 Sat by Pulse Oximetry (%) 96 04/05/17 09:00 Constitutional: Yes: Calm Eyes: Yes: Conjunctiva Clear HENT: Yes: Atraumatic Cardiovascular: Yes: S1, S2 Respiratory: Yes: CTA Bilaterally Gastrointestinal: Yes: Soft Genitourinary: Yes: WNL Musculoskeletal: Yes: Back Pain Edema: LLE: Trace, RLE: Trace Neurological: Yes: Oriented Psychiatric: Yes: Oriented Labs: CBC, BMP 04/04/17 06:00 04/04/17 06:00 INR, PTT INR 1.03 (0.82-1.09) 03/16/17 06:00 Problem List - Problems (1) Acute renal failure Code(s): N17.9 - ACUTE KIDNEY FAILURE, UNSPECIFIED (2) Hypocalcemia Code(s): E83.51 - HYPOCALCEMIA (3) Multiple myeloma Code(s): C90.00 - MULTIPLE MYELOMA NOT HAVING ACHIEVED REMISSION Qualifiers: Assessment/Plan Current Medications Generic Name Dose Route Start Last Admin Trade Name Freq PRN Reason Stop Dose Admin Acetaminophen 325 mg 03/08/17 18:28 Tylenol - PO Q6H PRN FEVER OR PAIN Calcium Carbonate/Cholecalciferol 1 tab 03/24/17 22:00 04/05/17 09:35 Os-Ilan 500+D - PO 1 tab BID TOMÁS Administration Dexamethasone 4 mg 04/04/17 22:00 04/04/17 21:35 Decadron - PO 4 mg TID TOMÁS Administration Heparin Sodium (Porcine) 5,000 unit 03/30/17 22:00 04/05/17 09:35 Heparin - SQ Not Given BID TOMÁS Sodium Chloride 1,000 mls @ 65 mls/hr 04/01/17 16:12 04/05/17 03:36 Normal Saline - IV 65 mls/hr ASDIR TOMÁS Administration Polyethylene Glycol 17 gm 04/04/17 14:00 04/04/17 21:35 Miralax (For Daily Use) - PO Not Given TID TOMÁS Ranitidine HCl 150 mg 04/03/17 20:15 04/04/17 11:04 Zantac - PO 150 mg DAILY TOMÁS Administration Impression 1. multiple myeloma 2. SHANIA 3. anemia 4. Chol 5. COPD 6. anemia 7. compression fracture 8. small pleural effusion 9. plural effusion Plan - repeat labs in am - cont current management - renal function is improving - suspect renal involvement from myeloma - will follow - discussed with family Dr Soto
[2017-04-05] MEDS: DEXAMETHASONE 4 MG TABLET (FP) PO SCH ×2 (14:22→22:49)
[2017-04-05] MEDS: POLYETHYLENE GLYCOL 3350 119 GM BTL PO SCH ×2 (14:22→22:49)
--- NOTE | 2017-04-05 16:13 | PN ---
Progress Note (short form) - Note Progress Note: Radiation Oncology Still having epigastric discomfort. PE mild epigastric tenderness, nondistended, skin ok. CBC ok, post transfusion. MM with pathologic fractures/epidural extension. Steroid and RT gastritis. Cont PPI/H2 blockers, taper steroids weekly if tolerated. Completed 2500 cGy to T9-T12 today. Follow up med onc for systemic tx.
--- NOTE | 2017-04-05 21:20 | PN ---
Progress Note (short form) - Note Progress Note: Patient seen and examined up in chair, just returned from RT. Cor: RSR, No murmurs, No gallops Lungs: decreased Lt. base breath sounds Abd: Soft, Normal bowel sounds, No organomegaly Ext:1+ edema b/l Last Vital Signs Temp Pulse Resp BP Pulse Ox 98.1 F 99 H 16 132/78 97 04/05/17 20:41 04/05/17 20:41 04/05/17 20:41 04/05/17 20:41 04/05/17 20:42 CBC, BMP 04/04/17 06:00 04/04/17 06:00 Current Medications Generic Name Dose Route Start Last Admin Trade Name Freq PRN Reason Stop Dose Admin Acetaminophen 325 mg 03/08/17 18:28 Tylenol - PO Q6H PRN FEVER OR PAIN Calcium Carbonate/Cholecalciferol 1 tab 03/24/17 22:00 04/05/17 09:35 Os-Ilan 500+D - PO 1 tab BID TOMÁS Administration Dexamethasone 4 mg 04/04/17 22:00 04/05/17 14:22 Decadron - PO 4 mg TID TOMÁS Administration Heparin Sodium (Porcine) 5,000 unit 03/30/17 22:00 04/05/17 09:35 Heparin - SQ Not Given BID TOMÁS Sodium Chloride 1,000 mls @ 42 mls/hr 04/05/17 12:33 04/05/17 14:24 Normal Saline - IV Not Given ASDIR TOMÁS Polyethylene Glycol 17 gm 04/04/17 14:00 04/05/17 14:22 Miralax (For Daily Use) - PO 17 gm TID TOMÁS Administration Ranitidine HCl 150 mg 04/03/17 20:15 04/04/17 11:04 Zantac - PO 150 mg DAILY TOMÁS Administration A/P 81 y/o patient with myeloma, admitted with back pain MRI T/L spine with comprssion fx/epidural xtension Also SHANIA now imporving Completed RT on 04/05. Steroids being tapered: presently on dex 4mg PO q8h , will continue to taper down this week Likely d/c in the nest two days IVF H2 blcoker Golytely DVT ppx labs repeat in the am
[2017-04-06] MEDS: SODIUM CHLORIDE 1,000 ML IV SCH (01:37)
[2017-04-06] MEDS: DEXAMETHASONE 4 MG TABLET (FP) PO SCH ×4 (06:56→22:34)
[2017-04-06] MEDS: POLYETHYLENE GLYCOL 3350 119 GM BTL PO SCH ×4 (06:59→22:34)
[2017-04-06 07:14] LABS: MCH 30.6 pg (25.7-33.7); MCHC 33.7 g/dl (32.0-36.0); PLATELET COUNT 95 K/MM3 (134-434); RDW 16.5 % (11.6-15.6); WHITE BLOOD COUNT 4.6 K/mm3 (4.0-10.0)
[2017-04-06 07:40] LABS: ALBUMIN 3.3 g/dl (3.4-5.0); ANION GAP 11 (8-16); BILIRUBIN,TOTAL 0.5 mg/dL (0.2-1.0); CALCIUM 7.1 mg/dL (8.5-10.1); CO2 24 mmol/L (21-32); CREATININE 1.5 mg/dL (0.55-1.02); GLUCOSE,RANDOM 86 mg/dL (74-106); SGOT/AST 18 U/L (15-37); SGPT/ALT 17 U/L (12-78); TOT PROT 6.5 g/dl (6.4-8.2)
[2017-04-06 07:42] LABS: ALK PHOS 53 U/L (45-117)
[2017-04-06] MEDS: HEPARIN NA (PORCINE) 5,000 UNITS/ML 1ML VIAL SQ SCH ×2 (11:01→22:34)
[2017-04-06] MEDS: RANITIDINE HCL 150 MG TABLET (FP) PO SCH (11:05)
[2017-04-06] MEDS: CALCIUM 500MG/VIT-D 200 UNITS COMBO TABLET (FP) PO SCH ×2 (11:05→22:34)
--- NOTE | 2017-04-06 12:48 | PN ---
Progress Note (short form) - Note Progress Note: Patient seen and examined daughter at bedside. No specific complains Cor: RSR, No murmurs, No gallops Lungs: decreased Lt. base breath sounds Abd: Soft, Normal bowel sounds, No organomegaly Ext:1+ edema b/l Last Vital Signs Temp Pulse Resp BP Pulse Ox 97.9 F 95 H 20 120/75 97 04/06/17 14:32 04/06/17 14:32 04/06/17 14:32 04/06/17 14:32 04/05/17 20:42 CBC, BMP 04/06/17 06:00 04/06/17 06:00 Current Medications Generic Name Dose Route Start Last Admin Trade Name Freq PRN Reason Stop Dose Admin Acetaminophen 325 mg 03/08/17 18:28 Tylenol - PO Q6H PRN FEVER OR PAIN Calcium Carbonate/Cholecalciferol 1 tab 03/24/17 22:00 04/06/17 11:05 Os-Ilan 500+D - PO 1 tab BID TOMÁS Administration Dexamethasone 4 mg 04/04/17 22:00 04/06/17 13:31 Decadron - PO 4 mg TID TOMÁS Administration Heparin Sodium (Porcine) 5,000 unit 03/30/17 22:00 04/06/17 11:01 Heparin - SQ Not Given BID TOMÁS Sodium Chloride 1,000 mls @ 42 mls/hr 04/05/17 12:33 04/06/17 01:37 Normal Saline - IV 42 mls/hr ASDIR TOMÁS Administration Polyethylene Glycol 17 gm 04/04/17 14:00 04/06/17 13:32 Miralax (For Daily Use) - PO Not Given TID TOMÁS Ranitidine HCl 150 mg 04/03/17 20:15 04/06/17 11:05 Zantac - PO 150 mg DAILY TOMÁS Administration A/P 81 y/o patient with myeloma, admitted with back pain MRI T/L spine with comprssion fx/epidural xtension Also SHANIA now imporving Completed RT on 04/05. Steroids being tapered: presently on dex 4mg PO q8h , will continue to taper down weekly Likely d/c tomorrow IVF H2 blcoker Golytely DVT ppx thrombocytopenia likely from MM/post RT. labs repeat in the am Eliane go, spoke to financial aid manager
--- NOTE | 2017-04-06 16:35 | PN ---
Progress Note, Physician History of Present Illness: Pt seen and examined at bedside. She is awake and appears comfortable. - Current Medication List Current Medications: Active Medications Acetaminophen (Tylenol -) 325 mg PO Q6H PRN PRN Reason: FEVER OR PAIN Calcium Carbonate/Cholecalciferol (Os-Ilan 500+D -) 1 tab PO BID [facility] Last Admin: 04/06/17 11:05 Dose: 1 tab Dexamethasone (Decadron -) 4 mg PO TID [facility] Last Admin: 04/06/17 13:31 Dose: 4 mg Heparin Sodium (Porcine) (Heparin -) 5,000 unit SQ BID [facility] Last Admin: 04/06/17 11:01 Dose: Not Given Sodium Chloride (Normal Saline -) 1,000 mls @ 42 mls/hr IV ASDIR [facility] Last Admin: 04/06/17 01:37 Dose: 42 mls/hr Polyethylene Glycol (Miralax (For Daily Use) -) 17 gm PO TID [facility] Last Admin: 04/06/17 13:32 Dose: Not Given Ranitidine HCl (Zantac -) 150 mg PO DAILY [facility] Last Admin: 04/06/17 11:05 Dose: 150 mg - Objective Vital Signs: Vital Signs Temperature 97.9 F 04/06/17 14:32 Pulse Rate 95 H 04/06/17 14:32 Respiratory Rate 20 04/06/17 14:32 Blood Pressure 120/75 04/06/17 14:32 O2 Sat by Pulse Oximetry (%) 97 04/05/17 20:42 Constitutional: Yes: Calm Eyes: Yes: Conjunctiva Clear HENT: Yes: Atraumatic Neck: Yes: Supple Cardiovascular: Yes: S1, S2 Respiratory: Yes: CTA Bilaterally Gastrointestinal: Yes: Normal Bowel Sounds, Soft Genitourinary: Yes: WNL Musculoskeletal: Yes: Back Pain Edema: Yes Edema: LLE: 1+, RLE: 1+ Neurological: Yes: Oriented Psychiatric: Yes: Oriented Labs: CBC, BMP 04/06/17 06:00 04/06/17 06:00 INR, PTT INR 1.03 (0.82-1.09) 03/16/17 06:00 Problem List - Problems (1) Acute renal failure Code(s): N17.9 - ACUTE KIDNEY FAILURE, UNSPECIFIED (2) Hypocalcemia Code(s): E83.51 - HYPOCALCEMIA (3) Multiple myeloma Code(s): C90.00 - MULTIPLE MYELOMA NOT HAVING ACHIEVED REMISSION Qualifiers: Assessment/Plan Current Medications Generic Name Dose Route Start Last Admin Trade Name Felisha PRN Reason Stop Dose Admin Acetaminophen 325 mg 03/08/17 18:28 Tylenol - PO Q6H PRN FEVER OR PAIN Calcium Carbonate/Cholecalciferol 1 tab 03/24/17 22:00 04/06/17 11:05 Os-Ilan 500+D - PO 1 tab BID TOMÁS Administration Dexamethasone 4 mg 04/04/17 22:00 04/06/17 13:31 Decadron - PO 4 mg TID TOMÁS Administration Heparin Sodium (Porcine) 5,000 unit 03/30/17 22:00 04/06/17 11:01 Heparin - SQ Not Given BID TOMÁS Sodium Chloride 1,000 mls @ 42 mls/hr 04/05/17 12:33 04/06/17 01:37 Normal Saline - IV 42 mls/hr ASDIR TOMÁS Administration Polyethylene Glycol 17 gm 04/04/17 14:00 04/06/17 13:32 Miralax (For Daily Use) - PO Not Given TID TOMÁS Ranitidine HCl 150 mg 04/03/17 20:15 04/06/17 11:05 Zantac - PO 150 mg DAILY TOMÁS Administration Impression 1. multiple myeloma 2. SHANIA 3. anemia 4. Chol 5. COPD 6. anemia 7. compression fracture 8. small pleural effusion 9. plural effusion Plan - change fluids to 1/2 ns - will also decrease rate - renal function slowly stabilizing - suspect renal involvement from myeloma - will follow Dr Soto
[2017-04-06] MEDS ORDERED: SODIUM CHLORIDE 0.45% 1,000 ML IV SCH (16:45)
[2017-04-06] MEDS ORDERED: PT OWN MED DRAWER 7, Y5N ONE (19:41)
[2017-04-07] MEDS: DEXAMETHASONE 4 MG TABLET (FP) PO SCH ×2 (06:17→15:02)
[2017-04-07] MEDS: POLYETHYLENE GLYCOL 3350 119 GM BTL PO SCH ×2 (06:17→15:03)
[2017-04-07 07:07] LABS: MCH 30.5 pg (25.7-33.7); MEAN CELL VOLUME 89.6 fl (80-96); PLATELET COUNT 90 K/MM3 (134-434); RDW 16.1 % (11.6-15.6); WHITE BLOOD COUNT 3.7 K/mm3 (4.0-10.0)
[2017-04-07 07:47] LABS: ANION GAP 10 (8-16); CO2 22 mmol/L (21-32); GLUCOSE,RANDOM 81 mg/dL (74-106)
[2017-04-07 07:51] LABS: CREATININE 1.5 mg/dL (0.55-1.02)
[2017-04-07 08:17] LABS: CALCIUM 6.6 mg/dL (8.5-10.1)
[2017-04-07] MEDS: HEPARIN NA (PORCINE) 5,000 UNITS/ML 1ML VIAL SQ SCH (09:33)
[2017-04-07] MEDS: CALCIUM 500MG/VIT-D 200 UNITS COMBO TABLET (FP) PO SCH (09:37)
[2017-04-07] MEDS: RANITIDINE HCL 150 MG TABLET (FP) PO SCH (09:37)
[2017-04-07] MEDS ORDERED: CALCIUM GLUCONATE 10% - 1,000 MG/10 ML VIAL IVPB ONE ×2 (09:45→12:30)
--- NOTE | 2017-04-07 12:58 | DS ---
Physical Examination Vital Signs: Vital Signs Temperature 97.9 F 04/07/17 13:47 Pulse Rate 81 04/07/17 13:47 Respiratory Rate 20 04/07/17 13:47 Blood Pressure 125/73 04/07/17 13:47 O2 Sat by Pulse Oximetry (%) 96 04/06/17 21:00 Labs: CBC, BMP 04/07/17 06:00 04/07/17 06:00 <Drew Bello - Last Filed: 04/07/17 14:15> Vital Signs: Vital Signs Temperature 97.4 F L 04/07/17 05:38 Pulse Rate 77 04/07/17 05:38 Respiratory Rate 20 04/07/17 05:38 Blood Pressure 131/85 04/07/17 05:38 O2 Sat by Pulse Oximetry (%) 96 04/06/17 21:00 Constitutional: Yes: Well Nourished, No Distress, Calm Eyes: Yes: Conjunctiva Clear, EOM Intact HENT: Yes: Atraumatic, Normocephalic Neck: Yes: Supple Cardiovascular: Yes: Regular Rate and Rhythm Respiratory: Yes: Regular Gastrointestinal: Yes: Normal Bowel Sounds Edema: Yes Edema: LLE: Trace, RLE: Trace Labs: CBC, BMP 04/07/17 06:00 04/07/17 06:00 <Rhiannon Del Angel - Last Filed: 04/07/17 16:26> Discharge Summary - Home Medications Comprehensive Discharge Medication List: Ambulatory Orders Calcium 500Mg/Vit-D 200 Units [Os-Ilan 500+D -] 1 tab PO DAILY #30 tab 02/10/17 Pantoprazole Sodium [Protonix -] 40 mg PO DAILY #30 tab.ec 02/10/17 Revised meds: Decadron 4 mg BID Zantac 150 BID carafate--10 cc p.o. one hour after meals and h.s. Miralax and colace prn Calcium 1200 and vitamin D -1000/ day <Drew Bello - Last Filed: 04/07/17 14:15> Reason For Visit: MULTIPLE MYELOMA NOT HAVING ACHIEVED REMISSION Hospital Course: Mrs Fuentes is a 81 y/o patient with myeloma, admitted with back pain Initially, underwent Xrays which showed acute compression fractures. She underwent MRI T/L spine with comprssion fx/epidural xtension was seen by RadOn/Neuro surgery and also IR. After many discussions with family they have decided on just going with RT. She underwent RT and completed on 04/05 , for On admission she also had SHANIA. Renal was consulted. Her Myeloma labs were repeated and indicated progression of disease with light chain load of 7K which likely could explain the kidney function Apart from RT, she was started on Dexamethasone, on d/c taper was done to 4 mg tid with plan to out pt taper. She was also given protonix, IVF and maintained on DVT ppx Seen by PT in the hospital. She had constipation for which she is on Miralax. She had episodes of hypocalcemia, continued po calcium with intermittent IV calcium. Course was also complicated by intermitted episodes of anemia and thrombocytopenia and which likely is contributed from MM +_ RT . She receieved two times blood transfusions. Case was discussed with of [facility] Myeloma, recommended Triplet with Kyprols based . daughters in agreement. Will be started as an OP. Stable to be discharged with out pt follow-up with us. Patient will be discharged with VNS and Home PT. Arrangements will be made Daughters aware of the plan. - Home Medications Comprehensive Discharge Medication List: Ambulatory Orders Calcium 500Mg/Vit-D 200 Units [Os-Ilan 500+D -] 1 tab PO DAILY #30 tab 02/10/17 Pantoprazole Sodium [Protonix -] 40 mg PO DAILY #30 tab.ec 02/10/17 Dexamethasone 4mg TID <Rhiannon Del Angel - Last Filed: 04/07/17 16:26> Condition: Fair - Instructions Disposition: HOME
--- NOTE | 2017-04-07 14:14 | PN ---
Progress Note (short form) - Note Progress Note: Patient seen and examined Spoke at length with daughter via phone speaker To be discharged Meds to include decadron --4 mg BID zantac 150 mg BID Miralax --prn Colace prn carafate--10cc p.o. one hour after meals and h.s calcium -1200 mg daily Vitamin D-1000 mg daily Office follow up -- 04/11 Complains of esophagitis likely secondary to RT Last Vital Signs Temp Pulse Resp BP Pulse Ox 97.9 F 81 20 125/73 96 04/07/17 13:47 04/07/17 13:47 04/07/17 13:47 04/07/17 13:47 04/06/17 21:00 HEENT: SAVANNAH, EOM Intact Oropharynx: No thrush, No mucositis Cor: RSR, No murmurs, No gallops Lungs: Clear to P&A Abd: Soft, Normal bowel sounds, No organomegaly Ext:No significant edema Skin: No rashes, Integument intact CBC, BMP 04/07/17 06:00 04/07/17 06:00 Current Medications Generic Name Dose Route Start Last Admin Trade Name Freq PRN Reason Stop Dose Admin Acetaminophen 325 mg 03/08/17 18:28 Tylenol - PO Q6H PRN FEVER OR PAIN Calcium Carbonate/Cholecalciferol 1 tab 03/24/17 22:00 04/07/17 09:37 Os-Ilan 500+D - PO 1 tab BID TOMÁS Administration Dexamethasone 4 mg 04/04/17 22:00 04/07/17 06:17 Decadron - PO 4 mg TID TOMÁS Administration Heparin Sodium (Porcine) 5,000 unit 03/30/17 22:00 04/07/17 09:33 Heparin - SQ Not Given BID TOMÁS Sodium Chloride 1,000 mls @ 35 mls/hr 04/06/17 16:45 04/06/17 22:32 1/2 Normal Saline IV 35 mls/hr ASDIR TOMÁS Administration Polyethylene Glycol 17 gm 04/04/17 14:00 04/07/17 06:17 Miralax (For Daily Use) - PO Not Given TID TOMÁS Ranitidine HCl 150 mg 04/03/17 20:15 04/07/17 09:37 Zantac - PO 150 mg DAILY TOMÁS Administration Impression: Myeloma - not in remission Compression fracture spine RT Anemia Thrombocytopenia- RT/Myeloma Neutropenia--RT/Myeloma Esophagitis--RT effect Question and answer with family Discussed nutrition- family states they will continue with their own approach Encouraged mobilization Family states they will decide which medicines they will administer-I stated they are aware of my recommendations > 30 minutes in discussion at bedside with daughter and patient.
--- NOTE | 2017-04-07 15:40 | PN ---
Progress Note, Physician History of Present Illness: Pt seen and examined at bedside. She is awake and alert. She feels that her appetite is improving. - Current Medication List Current Medications: Active Medications Acetaminophen (Tylenol -) 325 mg PO Q6H PRN PRN Reason: FEVER OR PAIN Calcium Carbonate/Cholecalciferol (Os-Ilan 500+D -) 1 tab PO BID [facility] Last Admin: 04/07/17 09:37 Dose: 1 tab Dexamethasone (Decadron -) 4 mg PO TID [facility] Last Admin: 04/07/17 15:02 Dose: 4 mg Heparin Sodium (Porcine) (Heparin -) 5,000 unit SQ BID [facility] Last Admin: 04/07/17 09:33 Dose: Not Given Sodium Chloride (1/2 Normal Saline) 1,000 mls @ 35 mls/hr IV ASDIR [facility] Last Admin: 04/06/17 22:32 Dose: 35 mls/hr Polyethylene Glycol (Miralax (For Daily Use) -) 17 gm PO TID [facility] Last Admin: 04/07/17 15:03 Dose: Not Given Ranitidine HCl (Zantac -) 150 mg PO DAILY [facility] Last Admin: 04/07/17 09:37 Dose: 150 mg - Objective Vital Signs: Vital Signs Temperature 97.9 F 04/07/17 13:47 Pulse Rate 81 04/07/17 13:47 Respiratory Rate 20 04/07/17 13:47 Blood Pressure 125/73 04/07/17 13:47 O2 Sat by Pulse Oximetry (%) 98 04/07/17 09:00 Constitutional: Yes: Calm Eyes: Yes: Conjunctiva Clear HENT: Yes: Atraumatic Neck: Yes: Supple Cardiovascular: Yes: S1, S2 Respiratory: Yes: CTA Bilaterally Gastrointestinal: Yes: Normal Bowel Sounds Genitourinary: Yes: WNL Musculoskeletal: Yes: Back Pain Edema: Yes Edema: LLE: Trace, RLE: Trace Neurological: Yes: Oriented Psychiatric: Yes: Oriented Labs: CBC, BMP 04/07/17 06:00 04/07/17 06:00 INR, PTT INR 1.03 (0.82-1.09) 03/16/17 06:00 Problem List - Problems (1) Acute renal failure Code(s): N17.9 - ACUTE KIDNEY FAILURE, UNSPECIFIED (2) Hypocalcemia Code(s): E83.51 - HYPOCALCEMIA (3) Multiple myeloma Code(s): C90.00 - MULTIPLE MYELOMA NOT HAVING ACHIEVED REMISSION Qualifiers: Assessment/Plan Current Medications Generic Name Dose Route Start Last Admin Trade Name Felisha PRN Reason Stop Dose Admin Acetaminophen 325 mg 03/08/17 18:28 Tylenol - PO Q6H PRN FEVER OR PAIN Calcium Carbonate/Cholecalciferol 1 tab 03/24/17 22:00 04/07/17 09:37 Os-Ilan 500+D - PO 1 tab BID TOMÁS Administration Dexamethasone 4 mg 04/04/17 22:00 04/07/17 15:02 Decadron - PO 4 mg TID TOMÁS Administration Heparin Sodium (Porcine) 5,000 unit 03/30/17 22:00 04/07/17 09:33 Heparin - SQ Not Given BID TOMÁS Sodium Chloride 1,000 mls @ 35 mls/hr 04/06/17 16:45 04/06/17 22:32 1/2 Normal Saline IV 35 mls/hr ASDIR TOMÁS Administration Polyethylene Glycol 17 gm 04/04/17 14:00 04/07/17 15:03 Miralax (For Daily Use) - PO Not Given TID TOMÁS Ranitidine HCl 150 mg 04/03/17 20:15 04/07/17 09:37 Zantac - PO 150 mg DAILY [facility] Administration Impression 1. multiple myeloma 2. SHANIA 3. anemia 4. Chol 5. COPD 6. anemia 7. compression fracture 8. small pleural effusion 9. plural effusion Plan - will need to monitor labs as outpt - monitor ua and prt to director technical ration - can see me in office as needed - renal function slowly stabilizing - cont calcium supplements - suspect renal involvement from myeloma - will follow Dr Soto
[2017-04-07 17:12] VITALS: BP 117/72; PULSE 101; TEMP 97.8
[2017-04-11 00:06] LABS: A/G RATIO 1.2 (0.7-1.7); ALBUMIN 3.2 g/dL (2.9-4.4); ALPHA-1-GLOBULIN 0.2 g/dL (0.0-0.4); BETA GLOBULIN 0.7 g/dL (0.7-1.3); GAMMA GLOBULIN 1.2 g/dL (0.4-1.8); GLOBULIN, TOTAL 2.7 g/dL (2.2-3.9); TOTAL PROTEIN 5.9 g/dL (6.0-8.5)
== END 2017-04-07 17:30 | disposition home health service (06) | DRG 840 ==
LOC: JONCCHEMO 07:28 → J7W 12:20 → JONCCHEMO 18:07 → J7W 18:07
PROVIDERS: ADMIT Internal Medicine Hematology & Oncology; ATTEND Internal Medicine Hematology & Oncology
PROC: 30233H1 Transfusion of Nonautologous Whole Blood into Peripheral Vein, Percutaneous Approach (ICD-10-PCS; principal; 2017-04-02)
DX: C90.00 Multiple myeloma not having achieved remission (principal); N17.0 Acute kidney failure with tubular necrosis; M48.55XA Collapsed vertebra, not elsewhere classified, thoracolumbar region, initial encounter for fracture; D61.818 Other pancytopenia; E83.51 Hypocalcemia; G35 Multiple sclerosis; E78.5 Hyperlipidemia, unspecified; J44.9 Chronic obstructive pulmonary disease, unspecified; D64.9 Anemia, unspecified; R19.7 Diarrhea, unspecified; D49.7 Neoplasm of unspecified behavior of endocrine glands and other parts of nervous system; E87.5 Hyperkalemia; K59.00 Constipation, unspecified; K29.70 Gastritis, unspecified, without bleeding; K20.9 Esophagitis, unspecified
CPT/HCPCS: 36415; 36430; 71101-TC; 72070-TC; 72100-TC; 72146-TC; 72148-TC; 76775-TC; 76856-TC; 80048; 80053; 80076; 81003; 81015; 82436; 82570; 82784; 83735; 83883; 84100; 84133; 84155; 84156; 84157; 84165; 84300; 85025; 85027; 85610; 85730; 86334; 86850; 86900; 86901; 86922; 87086; 87186; 87324; 87449; 93306-TC; 96361; 96401; 97116-GP; 97162-GP; 97164-GP; J9041; P9038; P9058

== ENCOUNTER 2017-04-24 07:30 | Day surgery (SDC) | payer OTHER ==
[2017-04-24] MEDS ORDERED: DEXTROSE 5%-0.45% SALINE 1,000 ML IV SCH ×2 (08:00→12:00)
[2017-04-24] MEDS ORDERED: SODIUM CHLORIDE 250 ML IV ONE ×2 (08:00→09:40)
[2017-04-24] MEDS ORDERED: DEXAMETHASONE IVPB ONE (08:30)
[2017-04-24] MEDS ORDERED: ONDANSETRON IVPB ONE (08:30)
[2017-04-24] MEDS ORDERED: SODIUM CHLORIDE IVPB ONE ×2 (08:30→09:10)
[2017-04-24] MEDS ORDERED: DEXTROSE 5% IV ONE (09:00)
[2017-04-24] MEDS ORDERED: CARFILZOMIB IV ONE (09:00)
[2017-04-24] MEDS ORDERED: WATER IV ONE (09:00)
[2017-04-24] MEDS ORDERED: CYCLOPHOSPHAMIDE IVPB ONE (09:10)
[2017-04-24 13:11] LABS: BASOPHIL 0.2 % (0-2.0); EOSINOPHIL 0.1 % (0-4.5); MCH 30.4 pg (25.7-33.7); MCHC 33.1 g/dl (32.0-36.0); MEAN CELL VOLUME 91.7 fl (80-96); MEAN PLT VOLUME 6.2 fl (7.5-11.1); PLATELET COUNT 185 K/MM3 (134-434); RDW 15.2 % (11.6-15.6); WHITE BLOOD COUNT 5.4 K/mm3 (4.0-10.0)
[2017-04-24 13:42] LABS: ANION GAP 6 (8-16); CALCIUM 8.2 mg/dL (8.5-10.1); CO2 29 mmol/L (21-32); CREATININE 1.4 mg/dL (0.55-1.02); GLUCOSE,RANDOM 71 mg/dL (74-106); LDH 264 U/L (84-246); URIC ACID 5.6 mg/dL (2.6-7.2)
[2017-04-24 13:43] LABS: ALBUMIN 3.3 g/dl (3.4-5.0); BILIRUBIN,DIRECT < 0.2 mg/dL (0.0-0.2); BILIRUBIN,TOTAL 0.4 mg/dL (0.2-1.0); SGOT/AST 25 U/L (15-37); SGPT/ALT 22 U/L (12-78)
[2017-04-24 13:44] LABS: ALK PHOS 71 U/L (45-117)
[2017-04-24] MEDS ORDERED: ACETAMINOPHEN 650 MG/20.3 ML ORAL SOLUTION (CUPS) PO ONE (17:14)
[2017-04-24] MEDS ORDERED: ALLOPURINOL 100 MG TABLET (FP) PO ONE (21:06)
[2017-04-24] MEDS ORDERED: SODIUM CHLORIDE 1,000 ML IV SCH (21:15)
[2017-04-25 07:40] LABS: ALBUMIN 2.5 g/dl (3.4-5.0); ANION GAP 7 (8-16); BILIRUBIN,TOTAL 0.3 mg/dL (0.2-1.0); CALCIUM 7.1 mg/dL (8.5-10.1); CO2 25 mmol/L (21-32); CREATININE 1.3 mg/dL (0.55-1.02); GLUCOSE,RANDOM 122 mg/dL (74-106); SGOT/AST 34 U/L (15-37); SGPT/ALT 18 U/L (12-78); TOT PROT 5.5 g/dl (6.4-8.2)
[2017-04-25 07:41] LABS: ALK PHOS 66 U/L (45-117); MCH 30.9 pg (25.7-33.7); MEAN PLT VOLUME 6.6 fl (7.5-11.1); PLATELET COUNT 157 K/MM3 (134-434); RDW 15.3 % (11.6-15.6); WHITE BLOOD COUNT 6.2 K/mm3 (4.0-10.0)
--- NOTE | 2017-04-25 08:11 | PN ---
Progress Note (short form) - Note Progress Note: Patient seen and examined Received overnight hydration S/P Kyprolis and cytoxan with decadron therapy. Last Vital Signs Temp Pulse Resp BP Pulse Ox 98.2 F 90 20 94/58 99 04/25/17 05:44 04/25/17 05:44 04/25/17 05:44 04/25/17 05:44 04/24/17 22:08 HEENT: SAV[place]NA[place], EOM Intact Oropharynx: No thrush, No mucositis Breasts: Without masses Cor: RSR, No murmurs, No gallops Lungs: Clear to P&A Abd: Soft, Normal bowel sounds, No organomegaly Ext:No significant edema Skin: No rashes, Integument intact Current Medications Generic Name Dose Route Start Last Admin Trade Name Freq PRN Reason Stop Dose Admin Sodium Chloride 1,000 mls @ 42 mls/hr 04/24/17 21:15 04/24/17 21:20 Normal Saline - IV 42 mls/hr ASDIR TOMÁS Administration Impression: Myeloma - not in remission: S/P kyprolis and cytoxan s/p decadron - 20 mg Will be discharged and receive day 2 of chemotherapy.
[2017-04-25 09:00] VITALS: BP 112/70; PULSE 66; TEMP 98
[2017-04-25 10:37] LABS: METAMYELOCYTE 1 % (0-2); MYELOCYTE 2 % (0-2); PLATELET ESTIMATE ADEQUATE; REACTIVE LYMPHOCYTES 1 % (0-80); TOTAL CELLS COUNTED 100
== END 2017-04-25 09:13 | disposition home or self-care (01) ==
LOC: JONCCHEMO 07:30 → J7W 12:22 → JONCCHEMO 04-25 09:13
PROVIDERS: ATTEND Internal Medicine Hematology & Oncology
DX: Z51.11 Encounter for antineoplastic chemotherapy (principal); C90.00 Multiple myeloma not having achieved remission
CPT/HCPCS: 36415; 80048; 80053; 80076; 83615; 83735; 84550; 85025; 96361; 96366; 96367; 96375; 96411; 96413; 96417; J9047; J9070

== ENCOUNTER 2017-04-25 08:22 | Day surgery (SDC) | payer OTHER ==
[~2017-04-25 08:22] MED LIST: SODIUM CHLORIDE 250 ML IV ONE
[2017-04-25] MEDS ORDERED: ONDANSETRON INJECTION 8 MG in SODIUM CHLORIDE 50 ML IVPB ONE (08:30)
[2017-04-25] MEDS ORDERED: WATER IV ONE (09:00)
[2017-04-25] MEDS ORDERED: DEXTROSE 5% IV ONE (09:00)
[2017-04-25] MEDS ORDERED: CARFILZOMIB IV ONE (09:00)
[2017-04-25] MEDS ORDERED: DEXTROSE 5%-NORMAL SALINE 1,000 ML IV SCH ×2 (09:00→12:00)
[2017-04-25] MEDS ORDERED: SODIUM CHLORIDE 250 ML IV ONE (09:10)
[2017-04-25] MEDS ORDERED: ACETAMINOPHEN 325 MG TABLET (FP) PO PRN (09:44)
[2017-04-25 10:18] LABS: BASOPHIL 0.1 % (0-2.0); MCHC 34.4 g/dl (32.0-36.0); MEAN CELL VOLUME 90.1 fl (80-96); MEAN PLT VOLUME 6.4 fl (7.5-11.1); NEUTROPHILS 72.7 % (42.8-82.8); PLATELET COUNT 161 K/MM3 (134-434); RDW 15.2 % (11.6-15.6); WHITE BLOOD COUNT 5.9 K/mm3 (4.0-10.0)
[2017-04-25] MEDS ORDERED: ALLOPURINOL 300 MG TABLET (FP) PO ONE ×2 (10:30→11:30)
[2017-04-25 10:35] LABS: ALBUMIN 2.6 g/dl (3.4-5.0); ALK PHOS 64 U/L (45-117); BILIRUBIN,DIRECT < 0.2 mg/dL (0.0-0.2); BILIRUBIN,TOTAL 0.3 mg/dL (0.2-1.0); PHOSPHOROUS 3.6 mg/dL (2.5-4.9); SGOT/AST 36 U/L (15-37); SGPT/ALT 19 U/L (12-78); TOT PROT 5.6 g/dl (6.4-8.2)
[2017-04-25 10:42] LABS: ALBUMIN 2.6 g/dl (3.4-5.0); ALK PHOS 64 U/L (45-117); ANION GAP 9 (8-16); BILIRUBIN,TOTAL 0.4 mg/dL (0.2-1.0); CO2 25 mmol/L (21-32); CREATININE 1.2 mg/dL (0.55-1.02); GLUCOSE,RANDOM 97 mg/dL (74-106); LDH 338 U/L (84-246); MAGNESIUM 1.8 mg/dL (1.8-2.4); SGOT/AST 35 U/L (15-37); SGPT/ALT 20 U/L (12-78); TOT PROT 5.8 g/dl (6.4-8.2); URIC ACID 5.2 mg/dL (2.6-7.2)
[2017-04-25 11:09] LABS: CALCIUM 6.9 mg/dL (8.5-10.1)
[2017-04-25 17:36] VITALS: BP 96/57; PULSE 51; TEMP 97.1
== END 2017-04-25 19:10 | disposition home or self-care (01) ==
LOC: JONCCHEMO 08:22 → J7W 09:21 → JONCCHEMO 19:10
PROVIDERS: ATTEND Internal Medicine Hematology & Oncology
PROC: 3E03305 Introduction of Other Antineoplastic into Peripheral Vein, Percutaneous Approach (ICD-10-PCS; principal; 2017-04-25)
PROC: 3E033GC Introduction of Other Therapeutic Substance into Peripheral Vein, Percutaneous Approach (ICD-10-PCS; 2017-04-25)
DX: Z51.11 Encounter for antineoplastic chemotherapy (principal); C90.00 Multiple myeloma not having achieved remission
CPT/HCPCS: 36415; 80053; 80076; 83615; 83735; 84100; 84550; 85025; 96361; 96375; 96413; J9047

== ENCOUNTER 2017-04-27 09:09 | Day surgery (SDC) | payer OTHER ==
[2017-04-27 11:59] LABS: MCH 30.4 pg (25.7-33.7); MCHC 33.2 g/dl (32.0-36.0); MEAN CELL VOLUME 91.7 fl (80-96); MEAN PLT VOLUME 7.4 fl (7.5-11.1); PLATELET COUNT 150 K/MM3 (134-434); RDW 15.8 % (11.6-15.6); WHITE BLOOD COUNT 5.1 K/mm3 (4.0-10.0)
[2017-04-27 13:25] LABS: ALBUMIN 2.7 g/dl (3.4-5.0); ANION GAP 9 (8-16); CALCIUM 7.1 mg/dL (8.5-10.1); CO2 21 mmol/L (21-32); GLUCOSE,RANDOM 114 mg/dL (74-106)
[2017-04-27 13:26] LABS: CREATININE 1.4 mg/dL (0.55-1.02); SGOT/AST 35 U/L (15-37); SGPT/ALT 21 U/L (12-78)
[2017-04-27 13:28] LABS: ALK PHOS 62 U/L (45-117); BILIRUBIN,TOTAL 0.3 mg/dL (0.2-1.0); TOT PROT 6.2 g/dl (6.4-8.2)
[2017-04-27] MEDS ORDERED: DEXTROSE 5%-NORMAL SALINE 1,000 ML IV SCH (14:45)
[2017-04-27 16:58] VITALS: BP 113/72; PULSE 116; TEMP 99.4
== END 2017-04-27 17:00 | disposition home or self-care (01) ==
LOC: JONCNONCHE 09:09 → J7W 11:03 → JONCNONCHE 17:00
PROVIDERS: ATTEND Internal Medicine Hematology & Oncology
PROC: 3E0337Z Introduction of Electrolytic and Water Balance Substance into Peripheral Vein, Percutaneous Approach (ICD-10-PCS; principal; 2017-04-27)
DX: C90.00 Multiple myeloma not having achieved remission (principal); G35 Multiple sclerosis
CPT/HCPCS: 36415; 80053; 85027; 96360; 96361; 96415; 96417

== ENCOUNTER 2017-04-29 11:28 | Inpatient (IN) | payer OTHER ==
[2017-04-29] MEDS ORDERED: SODIUM CHLORIDE 0.9% 1000 ML INFUS.BAG IV ONE (12:55)
--- NOTE | 2017-04-29 13:25 | HP ---
Admitting History and Physical - Admission Chief Complaint: Heart rate in 120'S , dehydration and fever to 100.3 History of Present Illness: 81 y/o female well know to and , with multiple myeloma and spinal compression in the past s/p XRT to the spine. She was recently noted to have progression of disease and initiated on triplet chemotherapy with Kyprolis. Per history obtained from her daughter, patient received kyprolis earlier this week on Apr 24. She was then noted to be dehydrated and received IV fluids on 04/27. Last night, she became weak and lethargic. She had a fever of 100.3. Her heart rate also became irregular in the 140's. was made aware and she asked patient to come to the ED for work- up. Daughter is insisting however, that patient is here only for elective IV fluids and she would like to take her home after she has received her fluids. Patient is minimally communicative during our encounter. 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: Yes: Multiple Sclerosis Cardiovascular: Yes: Hyperlipdemia Pulmonary: Yes: COPD Gastrointestinal: Yes: Constipation, Diverticulosis (sigmoid diverticulitis in ) Renal/: Yes: Renal Inusuff, Other (aj in past) Heme/Onc: Yes: Other Musculoskeletal: Yes: Osteoarthritis - Smoking History Smoking history: Never smoked Have you smoked in the past 12 months: No - Alcohol/Substance Use Hx Alcohol Use: No History of Substance Use: reports: None - Social History ADL: Family Assistance 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 ? dementia), CA: Sister (2, one 64 with COPD, one sister is breast cancer survivor), Other: Father ( : 71 pulmonary embolism. COPD), Mother, Sister, Daughter (healthy) Review of Systems Unable to obtain ROS, reason: patient too tired to talk Physical Examination Vital Signs: Vital Signs Temperature 98 F 04/29/17 13:00 Pulse Rate 120 H 04/29/17 13:00 Respiratory Rate 18 04/29/17 13:00 Blood Pressure 101/54 04/29/17 13:00 O2 Sat by Pulse Oximetry (%) Constitutional: Yes: Well Nourished Eyes: Yes: WNL HENT: Yes: WNL Neck: Yes: WNL Cardiovascular: Yes: Tachycardia, Pulse Irregular Respiratory: Yes: Regular Gastrointestinal: Yes: WNL ...Rectal Exam: Yes: WNL, Deferred Renal/: Yes: WNL Breast(s): Yes: WNL Musculoskeletal: Yes: WNL Extremities: Yes: WNL Edema: No Integumentary: Yes: WNL Neurological: Yes: Other (Not able to perform neuro exam due to patient's somnolent status) Assessment/Plan 81 y/o female well know to and . She has multiple myeloma with spinal compression in the past s/p RT. Recently initiated on triplet chemotherapy with Kyprolis. On presentation, recorded a temp of 100.3 last night at home, HR is in the 120'S and irregular which is new from previous. She is also somnolent and fatigued. -admit to inpatient oncology service -check CBC, CMP, blood cultures, coags - as she is afebrile currently, will hold off on starting antibiotics -check EKG, TTE -Cardiology consult for further inputs -1L IV NS at 75 cc/hr -I strongly counselled patient's daughter that given these new findings of fever and tachycardia, patient should stay inhouse and get work-up done. She needs much more medical management than just IV fluids. Daughter is thinking about it
[2017-04-29 13:44] LABS: BASOPHIL 0.4 % (0-2.0); EOSINOPHIL 0.1 % (0-4.5); MCH 30.3 pg (25.7-33.7); MCHC 33.2 g/dl (32.0-36.0); MEAN CELL VOLUME 91.5 fl (80-96); MEAN PLT VOLUME 7.7 fl (7.5-11.1); NEUTROPHILS 73.4 % (42.8-82.8); PLATELET COUNT 132 K/MM3 (134-434); RDW 15.6 % (11.6-15.6); WHITE BLOOD COUNT 6.3 K/mm3 (4.0-10.0)
[2017-04-29 14:05] LABS: ALBUMIN 2.6 g/dl (3.4-5.0); ALK PHOS 53 U/L (45-117); ANION GAP 8 (8-16); BILIRUBIN,TOTAL 0.5 mg/dL (0.2-1.0); CALCIUM 7.5 mg/dL (8.5-10.1); CO2 22 mmol/L (21-32); CREATININE 1.2 mg/dL (0.55-1.02); GLUCOSE,RANDOM 71 mg/dL (74-106); SGOT/AST 27 U/L (15-37); SGPT/ALT 17 U/L (12-78)
[2017-04-29 16:24] LABS: INR 1.07 (0.82-1.09); PROTHROMBIN TIME (PATIENT) 12.1 SEC (9.98-11.88)
[2017-04-29 16:27] LABS: ACTIVATED PTT 27.5 SECONDS (26.9-34.4)
[2017-04-29] MEDS ORDERED: SODIUM CHLORIDE 1,000 ML IV ONE (19:45)
[2017-04-29] MEDS ORDERED: CEFEPIME 1 GM in DEXTROSE 5%-WATER - 100 ML IVPB ONE (21:00)
[2017-04-29] MEDS ORDERED: ACETAMINOPHEN 325 MG TABLET (FP) PO ONE (21:00)
[2017-04-29] MEDS ORDERED: AZITHROMYCIN IVPB 500 MG in DEXTROSE 5%-WATER - 250 ML IVPB STA (22:32)
[2017-04-29] MEDS ORDERED: LACTATED RINGERS SOLUTION 1000 ML INFUS.BAG IV STA (22:36)
[2017-04-29] MEDS ORDERED: ALBUTEROL SO4 0.083% IH SOL 2.5 MG/3 ML VIAL.NEB. NEB PRN (22:40)
[2017-04-29] MEDS ORDERED: ACETAMINOPHEN 1000 MG/100 ML VIAL (NON FORMULARY) IVPB ONE (22:42)
--- NOTE | 2017-04-30 00:01 | PROC ---
Procedure Note Procedure: BRIEF PROCEDURE NOTE: PROCEDURE: MIDLINE INDICATION: POOR VENOUS ACCESS Consent was obtained from the pt's daughter, signed, & placed in the pt's chart. I did evaluate the pts L Median cephalic vein w/ US & I did appreciate the vessel to be healthy, patent, & easily accessible. The site was prepped & draped in the usual sterile fashion. STOP TIME OUT I did conduct a TIME OUT with the pt's Nurse @ the bedside. I did anesthetize the target site w/ 3cc 1% Lidocaine. I then entered the pts L Median cephalic vein under US guidance w/ a 21G introducer needle & I did appreciate the flow of non-pulsatile dark venous blood. I then threaded a 50cm Nitinol straight tip Flexura guidewire through the needle into the pts L Median cephalic vein & removed the needle. I then passed a 5.0 Fr MicroEZ Micro introducer w/ vessel dilator over the wire & into the vessel using the seldinger technique. I removed the central stylette & threaded a 5Fr dual lumen 20cm midline through the sheath into the vessel & then I broke away the sheath & advanced the Midline to the 20cm hub. I did appreciate the return of Dark Venous non-pulsatile blood in both ports. Both ports were flushed & capped in the usual sterile fashion. The line was secured w/ the STAT-Lock system. I applied a sterile dressing to the entire site. The pt tolerated the procedure well. A post procedure CXR showed the line in good position w/o curling. I have no known complications to report. DGL [facility] [place] [id number]
[2017-04-30] MEDS: ACETAMINOPHEN 325 MG TABLET (FP) PO PRN (06:38)
--- NOTE | 2017-04-30 08:36 | EKG ---
Test Reason : Blood Pressure : / mmHG Vent. Rate : 127 BPM Atrial Rate : 127 BPM P-R Int : 132 ms QRS Dur : 076 ms QT Int : 306 ms P-R-T Axes : 046 -12 021 degrees QTc Int : 444 ms SINUS TACHYCARDIA WITH PREMATURE ATRIAL COMPLEXES INFERIOR INFARCT , AGE UNDETERMINED ABNORMAL ECG WHEN COMPARED WITH ECG OF 12-JAN-2017 14:32, PREMATURE VENTRICULAR COMPLEXES ARE NO LONGER PRESENT PREMATURE ATRIAL COMPLEXES ARE NOW PRESENT Confirmed by MIGUELITO GONSALES, PEMA ([id number]) on 04/30/2017 8:35:50 AM Referred By: Oc HURTADO Confirmed By:PEMA FARLEY MD
[2017-04-30] MEDS ORDERED: AZITHROMYCIN IVPB 500 MG in DEXTROSE 5%-WATER - 250 ML IVPB SCH (10:00)
--- NOTE | 2017-04-30 10:12 | PN ---
Progress Note (short form) - Note Progress Note: Hematology/Oncology Follow-up Note S: Patient seen and evaluated at bedside today. She is saturating 99% on 4L NC, she appears more comfortable today than yesterday. Interim Hx for the past 24 hours : Yesterday evening at approx 8.30 pm, I was notified by the patients nurse that she is saturating in the 70's-80'S on RA. Her heart rate was in the 120'S and she spiked a temperature of 101. I ordered for the patient to have blood cultures repeated, a dose of IV cefepime , IV vancomycin (renally dosed) to be adminsitered. We continued giving her ns at 125 cc/hr and placed patient on 02 via NC. I placed an ICU consult and ICU SHALLOT PACKER evaluated patient, placed a midline in her and continued to monitor her on the floor overnight. Chest x ray was ordered which showed the presence of weakened inspiration with a right upper lobe infiltrate. We obtained an EKG earlier in the day which showed the presence of premature atrial complexes and a Cardiology consult was placed. Patient stabilized overnight on antibiotics and fluids. I spoke with her daughters on the phone last night and gave them a complete explanation of the plan of care. They voiced understanding of the plan and were in complete agreement with the plan of care. Last Vital Signs Temp Pulse Resp BP Pulse Ox 101.2 F H 103 H 20 120/67 04/30/17 06:28 04/30/17 06:28 04/30/17 06:28 04/30/17 06:28 Physical Exam today AOx3, PERRLA, not endorsing any pain Diminished breath sounds, CTA (BL) tachycardia with irregular pulse Soft abdomen No c/c/e nonfocal neuro exam CBC, BMP 04/29/17 13:05 04/29/17 13:05 Current Medications Generic Name Dose Route Start Last Admin Trade Name Freq PRN Reason Stop Dose Admin Acetaminophen 650 mg 04/29/17 22:30 04/30/17 06:38 Tylenol - PO 650 mg Q6H PRN Administration TEMP >101* Albuterol Sulfate 1 amp 04/29/17 22:40 Ventolin 0.083% Nebulizer Soln - NEB Q6H PRN SHORT OF BREATH/WHEEZING Azithromycin 500 mg/ Dextrose 250 mls @ 250 mls/hr 04/30/17 10:00 IVPB DAILY TOMÁS A/P : 81 y/o female well know to and . She has multiple myeloma with spinal compression in the past s/p RT. Recently initiated on triplet chemotherapy with Kyprolis. On presentation, recorded a temp of 100.3 last night at home, HR is in the 120'S and irregular which is new from previous. She was also somnolent and fatigued on my exam yesterday. Hence I advised the family to admit her and observe her overnight. Overnight as documented above, she desaturated, was febrile and diagnosed with a right upper lobe pneumonia and was started on broad spectrum IV antibiotics. 1. RUL Pna -patient now saturating 99% on 4L O2 via NC, continue for now -She received a dose of cefepime , vancomycin and azithro overngiht -will continue patient on cefepime 2g q24 hours (renally dosed) -spoke with ID , who will evaluate the patient tomorrow -continue IV fluids AT 75 cc/hr -awaiting results from Blood Cx, urine cx, urine legionalla and rapid strep antigen 2.Premature atrial tachycardia -reviewed EKG -likely related to sepsis -Cariology consulted for further recs 3.Febrile -on antibiotics -tylenol for supportive care 4.SHANIA -continue IV fluids -can consider renal consult if continues to have SHANIA with am labs today 5.'s team called for further medical management Patient and daughter at bedside were given a full explanation of the plan of care. All their questions were answered today. They were satisfied with the explanations given and would like to continue this plan of care.
[2017-04-30] MEDS ORDERED: CEFEPIME 2 GM in DEXTROSE 5%-WATER - 100 ML IVPB SCH (10:45)
[2017-04-30] MEDS ORDERED: CEFEPIME HCL 2 GM VIAL (RESTRICTED TO ID) IVPB SCH (10:45)
[2017-04-30] MEDS: CEFEPIME 2 GM in DEXTROSE 5%-WATER - 100 ML IVPB SCH (11:00)
[2017-04-30 11:08] LABS: URINE APPEARANCE SLCLOUDY; URINE BILIRUBIN NEGATIVE (NEGATIVE); URINE BLOOD NEGATIVE (NEGATIVE); URINE COLOR LTYELLOW; URINE GLUCOSE (UA) NEGATIVE (NEGATIVE); URINE KETONE NEGATIVE (NEGATIVE); URINE NITRITE NEGATIVE (NEGATIVE); URINE UROBILINOGEN NEGATIVE mg/dL (0.2-1.0)
[2017-04-30 11:15] LABS: URINE PROTEIN 1+ (NEGATIVE)
[2017-04-30 11:19] LABS: BASOPHIL 0.6 % (0-2.0); EOSINOPHIL 0.1 % (0-4.5); MCH 30.9 pg (25.7-33.7); MCHC 33.8 g/dl (32.0-36.0); MEAN CELL VOLUME 91.4 fl (80-96); MEAN PLT VOLUME 7.6 fl (7.5-11.1); NEUTROPHILS 78.5 % (42.8-82.8); PLATELET COUNT 132 K/MM3 (134-434); RDW 15.5 % (11.6-15.6)
[2017-04-30 11:19] LABS: URINE HYALINE CAST 1 /lpf; URINE MUCUS RARE; URINE RBC 3 /hpf (0-3); URINE WBC 207 /hpf (3-5)
--- NOTE | 2017-04-30 11:20 | CON.CARD ---
Cardiology Consult (text) - Consultation Consultation Note: cc: sent to er for ivfs hpi: 81 f hx MM, hld, sent to er for ivfs. Pt has hx MM s/p xrt and now getting chemo. Sent in for ivfs for dehydration and found to have pna/sepsis. No cp, sob, palps, dizzy, loc, pnd, orthopnea, le edema. No hx hrt dz. Pt with tachycardia so cardio eval requested. pmh/psh: per hpi social: no tob fam: no premature cad, scd ros: per hpi; no nvd, +fever, no muscle pain, gib, hematuria, dysuria, FELIPE, vision changes meds: Home Medications Medication Instructions Recorded Calcium 500Mg/Vit-D 200 Units 1 tab PO DAILY #30 tab 02/10/17 [Os-Ilan 500+D -] Pantoprazole Sodium [Protonix -] 40 mg PO DAILY #30 tab.ec 02/10/17 pe: Vital Signs Period Temp Pulse Resp BP Sys/Saucedo Pulse Ox Last 24 Hr 98 F-104.1 F 103-132 16-20 101-120/54-68 nad no jvd rrr s1s2 no mrg cta bl nl eff awake alert appropriate no jaundice diaphoresis pos dp pt no carotid bruits no le e/c/c abd nt nd pos bs Laboratory Last Values WBC 6.3 K/mm3 (4.0-10.0) 04/29/17 13:05 RBC 3.06 M/mm3 (3.60-5.2) L 04/29/17 13:05 Hgb 9.3 GM/dL (10.7-15.3) L 04/29/17 13:05 Hct 28.0 % (32.4-45.2) L 04/29/17 13:05 MCV 91.5 fl (80-96) 04/29/17 13:05 MCH 30.3 pg (25.7-33.7) 04/29/17 13:05 MCHC 33.2 g/dl (32.0-36.0) 04/29/17 13:05 RDW 15.6 % (11.6-15.6) 04/29/17 13:05 Plt Count 132 K/MM3 (134-434) L 04/29/17 13:05 MPV 7.7 fl (7.5-11.1) 04/29/17 13:05 Neutrophils % 73.4 % (42.8-82.8) 04/29/17 13:05 Lymphocytes % 21.2 % (8-40) 04/29/17 13:05 Monocytes % 4.9 % (3.8-10.2) 04/29/17 13:05 Eosinophils % 0.1 % (0-4.5) D 04/29/17 13:05 Basophils % 0.4 % (0-2.0) D 04/29/17 13:05 PT with INR 12.10 SEC (9.98-11.88) H 04/29/17 14:40 INR 1.07 (0.82-1.09) 04/29/17 14:40 PTT (Actin FS) 27.5 SECONDS (26.9-34.4) 04/29/17 14:40 Sodium 136 mmol/L (136-145) 04/29/17 13:05 Potassium 4.4 mmol/L (3.5-5.1) 04/29/17 13:05 Chloride 106 mmol/L (98-107) 04/29/17 13:05 Carbon Dioxide 22 mmol/L (21-32) 04/29/17 13:05 Anion Gap 8 (8-16) 04/29/17 13:05 BUN 35 mg/dL (7-18) H 04/29/17 13:05 Creatinine 1.2 mg/dL (0.55-1.02) H 04/29/17 13:05 Creat Clearance w eGFR 43.01 (>60) 04/29/17 13:05 Random Glucose 71 mg/dL (74-106) L D 04/29/17 13:05 Calcium 7.5 mg/dL (8.5-10.1) L 04/29/17 13:05 Total Bilirubin 0.5 mg/dL (0.2-1.0) D 04/29/17 13:05 AST 27 U/L (15-37) D 04/29/17 13:05 ALT 17 U/L (12-78) 04/29/17 13:05 Alkaline Phosphatase 53 U/L (45-117) 04/29/17 13:05 Total Protein 6.0 g/dl (6.4-8.2) L 04/29/17 13:05 Albumin 2.6 g/dl (3.4-5.0) L 04/29/17 13:05 cxr: no chf, rul pna ecg 04/29/17: st, pacs, nl intervals, no ischemic changes a/p: 81 f hx MM, hld, sent to er for ivfs. sinus tachy, pacs: -no signs of arrhythmia, just sinus tachy with pacs likely due to infection/ fever -recent tsh wnl -cont abx, ivfs and sinus tachy should improve pna: -cont abx hld: -stable, diet control MM: -on chemo per heme/onc
[2017-04-30 11:54] LABS: ALBUMIN 2.3 g/dl (3.4-5.0); ALK PHOS 48 U/L (45-117); ANION GAP 8 (8-16); BILIRUBIN,TOTAL 0.3 mg/dL (0.2-1.0); CALCIUM 7.5 mg/dL (8.5-10.1); CO2 25 mmol/L (21-32); CREATININE 1.2 mg/dL (0.55-1.02); GLUCOSE,RANDOM 134 mg/dL (74-106); LDH 301 U/L (84-246); SGOT/AST 26 U/L (15-37); SGPT/ALT 14 U/L (12-78); TOT PROT 5.4 g/dl (6.4-8.2)
[2017-04-30] MEDS: SODIUM CHLORIDE 1,000 ML IV SCH ×2 (12:04→20:11)
[2017-04-30 15:21] VITALS: BMI 25.7
--- NOTE | 2017-04-30 16:12 | CONSULT ---
Consult Consult Specialty:: medicine Referred by:: leeanne Reason for Consultation:: medicine follow up, pna - History of Present Illness Chief Complaint: dehydration History of Present Illness: HPI This is an 81 year old female with Multiple Myeloma and spinal compression s/p RT. Now on triplet chemotherapy (Kyprolis) presented to the ER with reports of fever and dehydration and tachycardia. She was admitted under heme/onc service. Overnight she desaturated, mid line was placed, fluids administered and CXR found new RUL pna. Given IV cefepime and vanco, EKG shows ST with PACs. Medicine consulted for further management and pna. - History Source History Provided By: Family Member, Medical Record Limitations to Obtaining History: No Limitations - Past Medical History CLOTH WEIGHER: Yes: Multiple Sclerosis Cardio/Vascular: Yes: Hyperlipdemia Pulmonary: Yes: COPD Gastrointestinal: Yes: Constipation, Diverticulosis (sigmoid diverticulitis in ) Renal/: Yes: Renal Inusuff, Other (shania in past) ...: No Heme/Onc: Yes: Current Chemotherapy Musculoskeletal: Yes: Osteoarthritis - Alcohol/Substance Use Hx Alcohol Use: No History of Substance Use: reports: None - Smoking History Smoking history: Never smoked Have you smoked in the past 12 months: No - Social History Usual Living Arrangement: Other ADL: Family Assistance 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 ? dementia), CA: Sister (2, one 64 with COPD, one sister is breast cancer survivor), Other: Father ( : 71 pulmonary embolism. COPD), Mother, Sister, Daughter (healthy) Review of Systems - Review of Systems Constitutional: reports: Lethargy, Weakness Eyes: reports: No Symptoms HENT: reports: No Symptoms Neck: reports: No Symptoms Cardiovascular: reports: Shortness of Breath Respiratory: reports: SOB, SOB on Exertion Gastrointestinal: reports: No Symptoms Genitourinary: reports: No Symptoms Musculoskeletal: reports: No Symptoms Integumentary: reports: No Symptoms Neurological: reports: No Symptoms Endocrine: reports: No Symptoms Hematology/Lymphatic: reports: No Symptoms Physical Exam Vital Signs: Vital Signs Temperature 98.7 F 04/30/17 14:22 Pulse Rate 108 H 04/30/17 14:22 Respiratory Rate 20 04/30/17 14:22 Blood Pressure 114/69 04/30/17 14:22 O2 Sat by Pulse Oximetry (%) 92 L 04/30/17 10:59 Constitutional: Yes: Calm Eyes: Yes: Conjunctiva Clear HENT: Yes: Atraumatic Cardiovascular: Yes: Tachycardia, S1, S2 Respiratory: Yes: Diminished (right lobe), On Nasal O2, Other (YEPEZ) Gastrointestinal: Yes: Normal Bowel Sounds, Soft Renal/: Yes: WNL Musculoskeletal: Yes: WNL Extremities: Yes: WNL, Other (L arm mid line) Edema: Yes Edema: LLE: Trace, RLE: Trace Integumentary: Yes: WNL Neurological: Yes: Alert, Oriented, Cran Nerves II-XII Intact Psychiatric: Yes: Alert, Oriented Labs: CBC, BMP 04/30/17 10:45 04/30/17 10:45 Imaging - Results Chest X-ray: Report Reviewed, Image Reviewed Assessment/Plan Assessment: 81 year old female with MM admitted with RUL pna Plan: 1. RUL pna - Continue cefepime - s/p azithro x1 - Urine, blood cx pending, urine legionalla and rapid strep antigen- - Supplemental o2 for spo2 goal 92% - ID consult requested 2. Tachycardia w/ pacs - Likely due to infection - EKG negative for ischemic changes - Continue IVF 75cc/hr - TSH wnl - Cardiology seeing 3. Multiple Myeloma - Management per heme/onc 4. SHANIA - Cr appears around baseline 5. Fever - Afebrile Coverage for Dr. Gregorio, he will resume care tomorrow Thank you for this consult. [id number] Visit type - Emergency Visit Emergency Visit: Yes ED Registration Date: 04/30/17 Care time: The patient presented to the Emergency Department on the above date and was hospitalized for further evaluation of their emergent condition. - New Patient This patient is new to me today: Yes Date on this admission: 04/30/17 - Critical Care Critical Care patient: No
[2017-04-30 21:23] LABS: URINE LEUK ESTERASE 3+ (NEGATIVE)
[2017-05-01] MEDS: ACETAMINOPHEN 325 MG TABLET (FP) PO PRN ×2 (01:11→18:00)
[2017-05-01] MEDS: SODIUM CHLORIDE 1,000 ML IV SCH ×2 (05:58→11:48)
[2017-05-01 07:17] LABS: MCH 31.1 pg (25.7-33.7); MCHC 33.8 g/dl (32.0-36.0); MEAN PLT VOLUME 7.5 fl (7.5-11.1); PLATELET COUNT 132 K/MM3 (134-434); RDW 15.6 % (11.6-15.6); WHITE BLOOD COUNT 4.9 K/mm3 (4.0-10.0)
[2017-05-01 07:48] LABS: ANION GAP 8 (8-16); CO2 21 mmol/L (21-32); GLUCOSE,RANDOM 68 mg/dL (74-106); SGOT/AST 26 U/L (15-37); SGPT/ALT 12 U/L (12-78)
[2017-05-01 07:50] LABS: ALK PHOS 44 U/L (45-117); BILIRUBIN,TOTAL 0.3 mg/dL (0.2-1.0); CREATININE 1.1 mg/dL (0.55-1.02); TOT PROT 4.8 g/dl (6.4-8.2)
--- NOTE | 2017-05-01 08:49 | PN ---
Progress Note, Physician Chief Complaint: tachy History of Present Illness: anxious no sob no cp no palpitations - Current Medication List Current Medications: Active Medications Acetaminophen (Tylenol -) 650 mg PO Q6H PRN PRN Reason: TEMP >101* Last Admin: 05/01/17 01:11 Dose: 650 mg Albuterol Sulfate (Ventolin 0.083% Nebulizer Soln -) 1 amp NEB Q6H PRN PRN Reason: SHORT OF BREATH/WHEEZING Cefepime HCl 2 gm/ Dextrose 100 mls @ 200 mls/hr IVPB DAILY [facility] Last Admin: 04/30/17 11:00 Dose: 200 mls/hr Sodium Chloride (Normal Saline -) 1,000 mls @ 75 mls/hr IV [facility] Last Admin: 05/01/17 05:58 Dose: 75 mls/hr - Objective Vital Signs: Vital Signs Temperature 98.2 F 05/01/17 05:54 Pulse Rate 102 H 05/01/17 05:54 Respiratory Rate 20 05/01/17 05:54 Blood Pressure 90/59 05/01/17 05:54 O2 Sat by Pulse Oximetry (%) 96 04/30/17 20:07 Constitutional: Yes: Well Nourished, No Distress, Calm Cardiovascular: Yes: Regular Rate and Rhythm, S1, S2. No: Gallop, Murmur Respiratory: Yes: Regular, CTA Bilaterally. No: Accessory Muscle Use, Rales, Wheezes Extremities: No: Cold Edema: No Neurological: Yes: Alert, Oriented. No: Seizure Psychiatric: No: Agitated Labs: CBC, BMP 05/01/17 05:35 05/01/17 05:35 INR, PTT INR 1.07 (0.82-1.09) 04/29/17 14:40 Assessment/Plan echo 02/2017: nl lv/rv, mild mr/tr, nl rvsp cxr: no chf, +RUL pna ecg 04/29/17: st, pacs, nl intervals, no ischemic changes a/p: 81 f hx MM, hld, sent to er for ivfs. sinus tachy, pacs: -no signs of arrhythmia, just sinus tachy with pacs likely due to infection/ fever -recent tsh wnl -HR trend improving--cont abx, ivfs pna: -cont abx hld: -stable, diet control per prior plan MM: -on chemo per heme/onc
--- NOTE | 2017-05-01 10:08 | PN ---
Progress Note (short form) - Note Progress Note: ID consult dictated 81 year old female with recent diagnosis of Multiple myeloma October 2016- on chemotherapy, recent radiation treatment to her back completed one month ago started new chemo with hydration last Monday- discharged home on Monday, returned for hydration on Monday had low grade temp and weakness, family was advised ED evaluation but they chose to give her tylenol and bring her in for hydration on Monday she developed fever to 101 on Monday and had a cxray with rul infiltrate she had cultures and was started on cefepime and zithromax now afebrile, feeling better continue cefepime/zithromax for pneumonia multiple myeloma s/p chemotherapy aj/ckd Problem List - Problems (1) Pneumonia Code(s): J18.9 - PNEUMONIA, UNSPECIFIED ORGANISM (2) Multiple myeloma Code(s): C90.00 - MULTIPLE MYELOMA NOT HAVING ACHIEVED REMISSION Qualifiers:
[2017-05-01 10:14] LABS: METAMYELOCYTE 1 % (0-2); TOTAL CELLS COUNTED 100
[2017-05-01 10:15] LABS: PLATELET ESTIMATE SLT DECREASE
[2017-05-01] MEDS ORDERED: CEFEPIME HCL 2 GM VIAL (RESTRICTED TO ID) IVPB SCH ×2 (10:15)
[2017-05-01] MEDS ORDERED: AZITHROMYCIN IVPB 250 MG in DEXTROSE 5%-WATER - 250 ML IVPB SCH (10:15)
[2017-05-01] MEDS: CEFEPIME 2 GM in DEXTROSE 5%-WATER - 100 ML IVPB SCH ×2 (10:47→11:45)
[2017-05-01] MEDS: AZITHROMYCIN IVPB 500 MG in DEXTROSE 5%-WATER - 250 ML IVPB SCH (11:30)
--- NOTE | 2017-05-01 13:46 | PN ---
Progress Note, Physician Chief Complaint: Ms Fuentes says she does not know how she feels. She denies fevers, chills, shortness of breath, chest pain, nausea/vomiting, or abdominal pain. - Current Medication List Current Medications: Active Medications Acetaminophen (Tylenol -) 650 mg PO Q6H PRN PRN Reason: TEMP >101* Last Admin: 05/01/17 01:11 Dose: 650 mg Albuterol Sulfate (Ventolin 0.083% Nebulizer Soln -) 1 amp NEB Q6H PRN PRN Reason: SHORT OF BREATH/WHEEZING Sodium Chloride (Normal Saline -) 1,000 mls @ 75 mls/hr IV ASDIR [facility] Last Admin: 05/01/17 11:48 Dose: Not Given Azithromycin 500 mg/ Dextrose 250 mls @ 250 mls/hr IVPB DAILY [facility] Last Admin: 05/01/17 11:30 Dose: 250 mls/hr Cefepime HCl 2 gm/ Dextrose 100 mls @ 200 mls/hr IVPB DAILY [facility] Last Admin: 05/01/17 11:45 Dose: 200 mls/hr - Objective Vital Signs: Vital Signs Temperature 36.8 C 05/01/17 05:54 Pulse Rate 102 H 05/01/17 05:54 Respiratory Rate 20 05/01/17 05:54 Blood Pressure 90/59 05/01/17 05:54 O2 Sat by Pulse Oximetry (%) 96 04/30/17 20:07 Constitutional: Yes: Well Nourished, No Distress, Calm Cardiovascular: Yes: Regular Rate and Rhythm. No: Gallop, Murmur, Rub Respiratory: Yes: Regular, CTA Bilaterally. No: Rales, Rhonchi, Wheezes Gastrointestinal: Yes: Normal Bowel Sounds, Soft. No: Distention, Tenderness Extremities: Yes: WNL Edema: No Labs: CBC, BMP 05/01/17 05:35 05/01/17 05:35 INR, PTT INR 1.07 (0.82-1.09) 04/29/17 14:40 Assessment/Plan 1. Pneumonia -patient presents with pneumonia -ID consulted and appreciate assistance -patient receiving treatment for multiple myeloma, do not expect leukocytosis -continue cefepime and zithromax 2. Sepsis -improving -continue antibiotics and IVF 3. Anemia -secondary to multiple myeloma and treatment -expect some dilutional affect as well -hematology following 4. CKD -much improved from last admission -Dr Soto consulted 5. Multiple myeloma -hematology/oncology following
--- NOTE | 2017-05-01 14:21 | PN ---
Progress Note (short form) - Note Progress Note: Patient seen and examined Feels well. Denies any complaints Last Vital Signs Temp Pulse Resp BP Pulse Ox 98.2 F 102 H 20 90/59 96 05/01/17 05:54 05/01/17 05:54 05/01/17 05:54 05/01/17 05:54 05/01/17 09:00 Cor: RSR, No murmurs, No gallops Lungs: Clear to P&A Abd: Soft, Normal bowel sounds, No organomegaly Ext:No significant edema Abnormal Lab Results 04/30/17 05/01/17 05/01/17 10:10 05:35 05:35 RBC 2.35 L Hgb 7.3 L Hct 21.6 L Plt Count 132 L Monocytes % (Manual) 3 L Chloride 113 H BUN 24 H Creatinine 1.1 H Random Glucose 68 L D Calcium 7.0 L Alkaline Phosphatase 44 L Total Protein 4.8 L Albumin 2.0 L Ur Leukocyte Esterase 3+ H D Active Medications Generic Name Dose Route Start Last Admin Trade Name Freq PRN Reason Stop Dose Admin Acetaminophen 650 mg 04/29/17 22:30 05/01/17 01:11 Tylenol - PO 650 mg Q6H PRN Administration TEMP >101* Albuterol Sulfate 1 amp 04/29/17 22:40 Ventolin 0.083% Nebulizer Soln - NEB Q6H PRN SHORT OF BREATH/WHEEZING Sodium Chloride 1,000 mls @ 75 mls/hr 04/30/17 11:15 05/01/17 11:48 Normal Saline - IV Not Given ASDIR TOMÁS Azithromycin 500 mg/ Dextrose 250 mls @ 250 mls/hr 05/01/17 10:30 05/01/17 11 :30 IVPB 250 mls/hr DAILY TOMÁ[facility] Administration Cefepime HCl 2 gm/ Dextrose 100 mls @ 200 mls/hr 05/01/17 10:45 05/01/17 11: 45 IVPB 200 mls/hr DAILY TOM[facility] Administration A/P 81 y/o patient with myeloma, on carfilzomib/cytoxan/dex came in with hypotension /fevers RUL infiltrate On cefepime/azithro On IV fluids Transfuse 1 unit PRBCs over 4 hrs.
[2017-05-02 07:40] LABS: BASOPHIL 0.2 % (0-2.0); EOSINOPHIL 0.2 % (0-4.5); MCH 30.5 pg (25.7-33.7); MCHC 34.1 g/dl (32.0-36.0); MEAN CELL VOLUME 89.4 fl (80-96); MEAN PLT VOLUME 7.3 fl (7.5-11.1); NEUTROPHILS 64.2 % (42.8-82.8); PLATELET COUNT 160 K/MM3 (134-434); RDW 15.4 % (11.6-15.6); WHITE BLOOD COUNT 7.2 K/mm3 (4.0-10.0)
[2017-05-02 08:04] LABS: ALBUMIN 2.1 g/dl (3.4-5.0); ANION GAP 9 (8-16); BILIRUBIN,TOTAL 0.4 mg/dL (0.2-1.0); CALCIUM 7.5 mg/dL (8.5-10.1); CO2 21 mmol/L (21-32); CREATININE 1.1 mg/dL (0.55-1.02); GLUCOSE,RANDOM 70 mg/dL (74-106); MAGNESIUM 1.8 mg/dL (1.8-2.4); PHOSPHOROUS 1.3 mg/dL (2.5-4.9); SGOT/AST 27 U/L (15-37); SGPT/ALT 13 U/L (12-78); TOT PROT 5.2 g/dl (6.4-8.2)
[2017-05-02 08:05] LABS: ALK PHOS 53 U/L (45-117)
[2017-05-02] MEDS ORDERED: PT OWN MED DRAWER 7, Y5N ONE ×2 (08:14→08:55)
[2017-05-02] MEDS: AZITHROMYCIN IVPB 500 MG in DEXTROSE 5%-WATER - 250 ML IVPB SCH (09:54)
[2017-05-02] MEDS: CEFEPIME 2 GM in DEXTROSE 5%-WATER - 100 ML IVPB SCH (10:33)
[2017-05-02] MEDS ORDERED: POTASSIUM PHOSPHATE IVPB ONE (13:00)
[2017-05-02] MEDS ORDERED: SODIUM CHLORIDE IVPB ONE (13:00)
--- NOTE | 2017-05-02 13:30 | PN ---
Progress Note, Physician Chief Complaint: Ms Fuentes says she does not know how she feels, denies cp, sob, n/v. - Current Medication List Current Medications: Active Medications Acetaminophen (Tylenol -) 650 mg PO Q6H PRN PRN Reason: TEMP >101* Last Admin: 05/01/17 18:00 Dose: 650 mg Albuterol Sulfate (Ventolin 0.083% Nebulizer Soln -) 1 amp NEB Q6H PRN PRN Reason: SHORT OF BREATH/WHEEZING Sodium Chloride (Normal Saline -) 1,000 mls @ 75 mls/hr IV ASDIR [facility] Last Admin: 05/01/17 11:48 Dose: Not Given Azithromycin 500 mg/ Dextrose 250 mls @ 250 mls/hr IVPB DAILY [facility] Last Admin: 05/02/17 09:54 Dose: 250 mls/hr Cefepime HCl 2 gm/ Dextrose 100 mls @ 200 mls/hr IVPB DAILY [facility] Last Admin: 05/02/17 10:33 Dose: 200 mls/hr Potassium Phosphate 16 mm/ (Sodium Chloride) 250 mls @ 41.667 mls/hr IVPB ONCE ONE Stop: 05/02/17 18:59 - Objective Vital Signs: Vital Signs Temperature 36.9 C 05/02/17 10:00 Pulse Rate 112 H 05/02/17 10:00 Respiratory Rate 18 05/02/17 10:00 Blood Pressure 90/57 05/02/17 10:00 O2 Sat by Pulse Oximetry (%) 99 05/01/17 21:00 Constitutional: Yes: Well Nourished, No Distress, Calm Cardiovascular: Yes: Regular Rate and Rhythm. No: Gallop, Murmur, Rub Respiratory: Yes: Regular, CTA Bilaterally. No: Rales, Rhonchi, Wheezes Gastrointestinal: Yes: Normal Bowel Sounds, Soft. No: Distention, Tenderness Extremities: Yes: WNL Edema: No Labs: CBC, BMP 05/02/17 06:00 05/02/17 06:00 INR, PTT INR 1.07 (0.82-1.09) 04/29/17 14:40 Assessment/Plan 1. Pneumonia -continue cefepime and zithromax per ID 2. Sepsis -improving -continue antibiotics and IVF 3. Anemia -secondary to multiple myeloma and treatment -expect some dilutional affect as well -hematology following 4. CKD -much improved from last admission -Dr Soto consulted and case discussed -will place on a regular diet 5. Multiple myeloma -hematology/oncology following 6. Hypophosphatemia -replace with IV phosphorus -cannot use oral phosphorus secondary to allergy to sweetener
[2017-05-02] MEDS: SODIUM CHLORIDE 1,000 ML IV SCH (13:32)
[2017-05-02] MEDS ORDERED: POTASSIUM PHOSPHATE 16 MM in SODIUM CHLORIDE 250 ML IVPB ONE (15:02)
--- NOTE | 2017-05-02 16:21 | CONSULT ---
Consult Consult Specialty:: Nephrology Reason for Consultation:: ckd - History of Present Illness Chief Complaint: fever History of Present Illness: Pt is an 81 year old female with pmhx of CKD, SHANIA, and multiple myeloma who is admitted for treatment of PNA. I was called to evaluate her for elevated creatinine. She denies shortness of breath at rest. She is awake and appears comfortable. Her renal function had improved however is recently starting to climb. She is improving with hydration and abx. She denies dysuria or hematuria. - History Source History Provided By: Patient, Medical Record - Past Medical History P[employer]: Yes: Multiple Sclerosis Cardio/Vascular: Yes: Hyperlipdemia Pulmonary: Yes: COPD Gastrointestinal: Yes: Constipation, Diverticulosis (sigmoid diverticulitis in ) Renal/: Yes: Renal Inusuff, Other (shania in past) ...: No Heme/Onc: Yes: Anemia, Other (multiple myeloma) Musculoskeletal: Yes: Osteoarthritis - Alcohol/Substance Use Hx Alcohol Use: No History of Substance Use: reports: None - Smoking History Smoking history: Never smoked Have you smoked in the past 12 months: No - Social History Usual Living Arrangement: Other ADL: Family Assistance 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 ? dementia), [place]: Sister (2, one 64 with COPD, one sister is breast cancer survivor), Other: Father ( : 71 pulmonary embolism. COPD), Mother, Sister, Daughter (healthy) Review of Systems - Review of Systems Constitutional: reports: Malaise Eyes: reports: No Symptoms HENT: reports: No Symptoms Cardiovascular: reports: No Symptoms Respiratory: reports: No Symptoms Gastrointestinal: reports: No Symptoms Musculoskeletal: reports: Back Pain Integumentary: reports: No Symptoms Neurological: reports: No Symptoms Physical Exam Vital Signs: Vital Signs Temperature 98.6 F 05/02/17 15:36 Pulse Rate 118 H 05/02/17 15:36 Respiratory Rate 18 05/02/17 15:36 Blood Pressure 111/69 05/02/17 15:36 O2 Sat by Pulse Oximetry (%) 99 05/02/17 09:00 Constitutional: Yes: Calm Eyes: Yes: Conjunctiva Clear HENT: Yes: Atraumatic Cardiovascular: Yes: S1, S2 Respiratory: Yes: On Nasal O2 Gastrointestinal: Yes: Soft Renal/: Yes: WNL Musculoskeletal: Yes: WNL Edema: No Neurological: Yes: Oriented Psychiatric: Yes: Oriented Labs: CBC, BMP 05/02/17 06:00 05/02/17 06:00 Laboratory Tests 01/31/17 02/10/17 04/29/17 09:45 06:00 13:05 Creatinine 0.8 1.2 H Urine Protein 1+ H 04/30/17 04/30/17 05/01/17 10:10 10:45 05:35 Creatinine 1.2 H 1.1 H Urine Protein 1+ H 05/02/17 06:00 Creatinine 1.1 H Urine Protein Imaging - Results Chest X-ray: Report Reviewed Problem List - Problems (1) Multiple myeloma Code(s): C90.00 - MULTIPLE MYELOMA NOT HAVING ACHIEVED REMISSION (2) Pneumonia Code(s): J18.9 - PNEUMONIA, UNSPECIFIED ORGANISM Assessment/Plan Current Medications Generic Name Dose Route Start Last Admin Trade Name Freq PRN Reason Stop Dose Admin Acetaminophen 650 mg 04/29/17 22:30 05/01/17 18:00 Tylenol - PO 650 mg Q6H PRN Administration TEMP >101* Albuterol Sulfate 1 amp 04/29/17 22:40 Ventolin 0.083% Nebulizer Soln - NEB Q6H PRN SHORT OF BREATH/WHEEZING Sodium Chloride 1,000 mls @ 75 mls/hr 04/30/17 11:15 05/02/17 13:32 Normal Saline - IV Not Given ASDIR [facility] Azithromycin 500 mg/ Dextrose 250 mls @ 250 mls/hr 05/01/17 10:30 05/02/17 09 :54 IVPB 250 mls/hr DAILY [facility] Administration Cefepime HCl 2 gm/ Dextrose 100 mls @ 200 mls/hr 05/01/17 10:45 05/02/17 10: 33 IVPB 200 mls/hr DAILY [facility] Administration Potassium Phosphate 16 mm/ 255.3333 mls @ 42.556 mls/hr 05/02/17 15:02 16:49 Sodium Chloride IVPB 05/02/17 18:59 42.556 mls/hr ONCE ONE Administration Impression 1. PNA 2. sepsis 3. anemia 4. CKD 5. multiple myeloma 6. malnutrition 7. proteinuria Plan - cont with fluids - repeat labs in am - repeat phos levels in am - cont abx - renal function slowly improving - testboard operator 0.8 to 1.2 to 1.1 - will follow Dr Soto
--- NOTE | 2017-05-02 17:31 | PN ---
Progress Note (short form) - Note Progress Note: no fevers remains weak Vital Signs Period Temp Pulse Resp BP Sys/Saucedo Pulse Ox Last 24 Hr 98.1 F-98.7 F 107-122 18-20 90-114/49-69 99-99 cor-rrr llungs clear decreased bs at bases abd soft,nt ext no edema CBC, BMP 05/02/17 06:00 05/02/17 06:00 Microbiology 04/29/17 13:10 Blood - Peripheral Venous Blood Culture - Preliminary NO GROWTH OBTAINED AFTER 72 HOURS, INCUBATION TO CONTINUE FOR 2 DAYS. 04/29/17 13:05 Blood - Peripheral Venous Blood Culture - Preliminary NO GROWTH OBTAINED AFTER 72 HOURS, INCUBATION TO CONTINUE FOR 2 DAYS. 04/30/17 20:00 Throat Throat Culture - Final NO BETA HEMOLYTIC STREPTOCOCCI ISOLATED 04/30/17 20:00 Throat Group A Strep Rapid Antigen - Final 04/29/17 21:00 Blood - Peripheral Venous Blood Culture - Preliminary NO GROWTH OBTAINED AFTER 48 HOURS, INCUBATION TO CONTINUE FOR 3 DAYS. 04/29/17 20:55 Blood - Peripheral Venous Blood Culture - Preliminary NO GROWTH OBTAINED AFTER 48 HOURS, INCUBATION TO CONTINUE FOR 3 DAYS. 04/30/17 10:10 Urine - Urine Clean Catch Urine Culture - Final 04/30/17 18:10 Urine - Urine Clean Catch Legionella Antigen - Final 04/30/17 18:10 Urine - Urine Clean Catch Streptococcus pneumoniae Antigen ( M - Final a/p pneumonia continue cefepime/zithromax for pneumonia multiple myeloma s/p chemotherapy aj/ckd Problem List - Problems (1) Pneumonia Code(s): J18.9 - PNEUMONIA, UNSPECIFIED ORGANISM (2) Multiple myeloma Code(s): C90.00 - MULTIPLE MYELOMA NOT HAVING ACHIEVED REMISSION Qualifiers:
--- NOTE | 2017-05-02 20:14 | PN ---
Progress Note (short form) - Note Progress Note: Patient seen and examined Daughters and aide at bedside. Complains of some left sided rib cage pain. Would obtain left rib films Last Vital Signs Temp Pulse Resp BP Pulse Ox 99.1 F 128 H 20 101/42 99 05/02/17 18:00 05/02/17 18:00 05/02/17 18:00 05/02/17 18:00 05/02/17 09:00 No thrush Diminished breath sounds with poor inspiratory effort Cor _RSR Abdomen distended Ext- no significant edema CBC, BMP 05/02/17 06:00 05/02/17 06:00 Current Medications Generic Name Dose Route Start Last Admin Trade Name Freq PRN Reason Stop Dose Admin Acetaminophen 650 mg 04/29/17 22:30 05/01/17 18:00 Tylenol - PO 650 mg Q6H PRN Administration TEMP >101* Albuterol Sulfate 1 amp 04/29/17 22:40 Ventolin 0.083% Nebulizer Soln - NEB Q6H PRN SHORT OF BREATH/WHEEZING Sodium Chloride 1,000 mls @ 75 mls/hr 04/30/17 11:15 05/02/17 13:32 Normal Saline - IV Not Given ASDIR [facility] Azithromycin 500 mg/ Dextrose 250 mls @ 250 mls/hr 05/01/17 10:30 05/02/17 09 :54 IVPB 250 mls/hr DAILY [facility] Administration Cefepime HCl 2 gm/ Dextrose 100 mls @ 200 mls/hr 05/01/17 10:45 05/02/17 10: 33 IVPB 200 mls/hr DAILY [facility] Administration Impression: Pneumonia Note per daughters wishes, patient never took either flu or pneumonia vaccine Myeloma - not in remission s/p chemotherpy Plan: Ab per I>D> Rehab -- OOB
[2017-05-03 07:34] LABS: MCH 30.4 pg (25.7-33.7); MCHC 33.9 g/dl (32.0-36.0); MEAN CELL VOLUME 89.5 fl (80-96); MEAN PLT VOLUME 7.2 fl (7.5-11.1); PLATELET COUNT 178 K/MM3 (134-434); RDW 15.6 % (11.6-15.6); WHITE BLOOD COUNT 7.6 K/mm3 (4.0-10.0)
[2017-05-03 07:56] LABS: ALBUMIN 2.1 g/dl (3.4-5.0); ANION GAP 8 (8-16); CO2 22 mmol/L (21-32); GLUCOSE,RANDOM 69 mg/dL (74-106); MAGNESIUM 1.8 mg/dL (1.8-2.4)
[2017-05-03 08:02] LABS: ALK PHOS 57 U/L (45-117); BILIRUBIN,TOTAL 0.5 mg/dL (0.2-1.0); CALCIUM 7.1 mg/dL (8.5-10.1); CREATININE 1.4 mg/dL (0.55-1.02); PHOSPHOROUS 1.9 mg/dL (2.5-4.9); SGOT/AST 29 U/L (15-37); SGPT/ALT 13 U/L (12-78); TOT PROT 5.1 g/dl (6.4-8.2)
[2017-05-03] MEDS ORDERED: PT OWN MED DRAWER 7, Y5N ONE (09:24)
[2017-05-03] MEDS: CEFEPIME 2 GM in DEXTROSE 5%-WATER - 100 ML IVPB SCH (09:32)
[2017-05-03] MEDS: AZITHROMYCIN IVPB 500 MG in DEXTROSE 5%-WATER - 250 ML IVPB SCH (10:21)
[2017-05-03 10:53] LABS: MYELOCYTE 1 % (0-2); TOTAL CELLS COUNTED 100
[2017-05-03 10:54] LABS: REACTIVE LYMPHOCYTES 16 % (0-80)
[2017-05-03] MEDS ORDERED: SODIUM CHLORIDE IVPB ONE (12:25)
[2017-05-03] MEDS ORDERED: POTASSIUM PHOSPHATE IVPB ONE (12:25)
[2017-05-03] MEDS ORDERED: POTASSIUM PHOSPHATE 16 MM in SODIUM CHLORIDE 250 ML IVPB ONE (12:36)
--- NOTE | 2017-05-03 13:14 | PN ---
Progress Note (short form) - Note Progress Note: Patient seen and examined sister at bedside Had a BM this morning does have pain, awaiting rib series. OOB to chair O/E No thrush Diminished breath sounds with poor inspiratory effort Cor: RSR Abdomen soft Ext- no significant edema Temp Pulse Resp BP Pulse Ox 97.4 F L 88 20 104/68 98 05/03/17 06:22 05/03/17 11:38 05/03/17 06:22 05/03/17 06:22 05/03/17 11:38 CBC, BMP 05/03/17 06:00 05/03/17 06:00 Current Medications Generic Name Dose Route Start Last Admin Trade Name Freq PRN Reason Stop Dose Admin Acetaminophen 650 mg 04/29/17 22:30 05/01/17 18:00 Tylenol - PO 650 mg Q6H PRN Administration TEMP >101* Albuterol Sulfate 1 amp 04/29/17 22:40 Ventolin 0.083% Nebulizer Soln - NEB Q6H PRN SHORT OF BREATH/WHEEZING Azithromycin 500 mg/ Dextrose 250 mls @ 250 mls/hr 05/01/17 10:30 05/03/17 10 :21 IVPB 250 mls/hr DAILY [facility] Administration Cefepime HCl 2 gm/ Dextrose 100 mls @ 200 mls/hr 05/01/17 10:45 05/03/17 09: 32 IVPB 200 mls/hr DAILY [facility] Administration Potassium Phosphate 16 mm/ 255.3333 mls @ 63.833 mls/hr 05/03/17 12:36 Sodium Chloride IVPB 05/03/17 16:24 ONCE ONE Polyethylene Glycol 17 gm 05/03/17 12:23 Miralax (For Daily Use) - PO BID PRN CONSTIPATION Pneumonia Myeloma - not in remission s/p chemotherpy Plan: abx per ID replete Phos pt request Miralax. monitor CBC awaiting rib xrays PT eval
[2017-05-03] MEDS: SODIUM CHLORIDE 1,000 ML IV SCH (14:29)
--- NOTE | 2017-05-03 15:15 | PN ---
Progress Note, Physician Chief Complaint: Ms Fuentes says she feels ok. Denies cp, sob, n/v. - Current Medication List Current Medications: Active Medications Acetaminophen (Tylenol -) 650 mg PO Q6H PRN PRN Reason: TEMP >101* Last Admin: 05/01/17 18:00 Dose: 650 mg Albuterol Sulfate (Ventolin 0.083% Nebulizer Soln -) 1 amp NEB Q6H PRN PRN Reason: SHORT OF BREATH/WHEEZING Enoxaparin Sodium (Lovenox -) 30 mg SQ DAILY [facility] Azithromycin 500 mg/ Dextrose 250 mls @ 250 mls/hr IVPB DAILY [facility] Last Admin: 05/03/17 10:21 Dose: 250 mls/hr Cefepime HCl 2 gm/ Dextrose 100 mls @ 200 mls/hr IVPB DAILY [facility] Last Admin: 05/03/17 09:32 Dose: 200 mls/hr Potassium Phosphate 16 mm/ (Sodium Chloride) 255.3333 mls @ 63.833 mls/hr IVPB ONCE ONE Stop: 05/03/17 16:24 Last Admin: 05/03/17 13:30 Dose: 63.833 mls/hr Polyethylene Glycol (Miralax (For Daily Use) -) 17 gm PO BID PRN PRN Reason: CONSTIPATION - Objective Vital Signs: Vital Signs Temperature 36.7 C 05/03/17 10:00 Pulse Rate 88 05/03/17 11:38 Respiratory Rate 20 05/03/17 10:00 Blood Pressure 107/63 05/03/17 10:00 O2 Sat by Pulse Oximetry (%) 98 05/03/17 11:38 Constitutional: Yes: No Distress, Calm, Obese Cardiovascular: Yes: Regular Rate and Rhythm. No: Gallop, Murmur, Rub Respiratory: Yes: Regular, CTA Bilaterally. No: Rales, Rhonchi, Wheezes Gastrointestinal: Yes: Normal Bowel Sounds, Soft. No: Distention, Tenderness Extremities: Yes: WNL Edema: No Labs: CBC, BMP 05/03/17 06:00 05/03/17 06:00 INR, PTT INR 1.07 (0.82-1.09) 04/29/17 14:40 Assessment/Plan 1. Pneumonia -continue cefepime and zithromax per ID -defer course and duration to ID 2. Sepsis -resolved -continue antibiotics for pneumonia -stop IVF since drinking fluids 3. Anemia -secondary to multiple myeloma and treatment -expect some dilutional affect as well -hematology following 4. CKD -Dr Soto following -creatinine increased today 5. Multiple myeloma -hematology/oncology following 6. Hypophosphatemia -replace with IV phosphorus for second day, improved but not yet normal -recheck in am -cannot use oral phosphorus secondary to allergy to sweetener
[2017-05-03] MEDS ORDERED: SODIUM CHLORIDE FOR INHALATION 3 ML VIAL.NEB IH PRN (15:49)
--- NOTE | 2017-05-03 17:18 | PN ---
Progress Note, Physician History of Present Illness: Pt seen and examined at bedside. She is awake and alert. She has poor appetite. - Current Medication List Current Medications: Active Medications Acetaminophen (Tylenol -) 650 mg PO Q6H PRN PRN Reason: TEMP >101* Last Admin: 05/01/17 18:00 Dose: 650 mg Albuterol Sulfate (Ventolin 0.083% Nebulizer Soln -) 1 amp NEB Q6H PRN PRN Reason: SHORT OF BREATH/WHEEZING Enoxaparin Sodium (Lovenox -) 30 mg SQ DAILY [facility] Azithromycin 500 mg/ Dextrose 250 mls @ 250 mls/hr IVPB DAILY [facility] Last Admin: 05/03/17 10:21 Dose: 250 mls/hr Cefepime HCl 2 gm/ Dextrose 100 mls @ 200 mls/hr IVPB DAILY [facility] Last Admin: 05/03/17 09:32 Dose: 200 mls/hr Polyethylene Glycol (Miralax (For Daily Use) -) 17 gm PO BID PRN PRN Reason: CONSTIPATION Sodium Chloride (Normal Saline For Inhalation -) 3 ml IH Q6H PRN PRN Reason: nasal stuffiness - Objective Vital Signs: Vital Signs Temperature 98.0 F 05/03/17 15:15 Pulse Rate 109 H 05/03/17 15:15 Respiratory Rate 20 05/03/17 15:15 Blood Pressure 112/74 05/03/17 15:15 O2 Sat by Pulse Oximetry (%) 98 05/03/17 11:38 Constitutional: Yes: Calm Eyes: Yes: Conjunctiva Clear HENT: Yes: Atraumatic Neck: Yes: Supple Cardiovascular: Yes: S1, S2 Respiratory: Yes: CTA Bilaterally Gastrointestinal: Yes: Soft Genitourinary: Yes: WNL Musculoskeletal: Yes: WNL Edema: No Neurological: Yes: Oriented Psychiatric: Yes: Oriented Labs: CBC, BMP 05/03/17 06:00 05/03/17 06:00 INR, PTT INR 1.07 (0.82-1.09) 04/29/17 14:40 Problem List - Problems (1) Multiple myeloma Code(s): C90.00 - MULTIPLE MYELOMA NOT HAVING ACHIEVED REMISSION (2) Pneumonia Code(s): J18.9 - PNEUMONIA, UNSPECIFIED ORGANISM Assessment/Plan Current Medications Generic Name Dose Route Start Last Admin Trade Name Freq PRN Reason Stop Dose Admin Acetaminophen 650 mg 12/02/17 22:30 05/01/17 18:00 Tylenol - PO 650 mg Q6H PRN Administration TEMP >101* Albuterol Sulfate 1 amp 04/29/17 22:40 Ventolin 0.083% Nebulizer Soln - NEB Q6H PRN SHORT OF BREATH/WHEEZING Enoxaparin Sodium 30 mg 05/04/17 10:00 Lovenox - SQ DAILY [facility] Azithromycin 500 mg/ Dextrose 250 mls @ 250 mls/hr 05/01/17 10:30 05/03/17 10 :21 IVPB 250 mls/hr DAILY [facility] Administration Cefepime HCl 2 gm/ Dextrose 100 mls @ 200 mls/hr 05/01/17 10:45 05/03/17 09: 32 IVPB 200 mls/hr DAILY [facility] Administration Polyethylene Glycol 17 gm 05/03/17 12:23 Miralax (For Daily Use) - PO BID PRN CONSTIPATION Sodium Chloride 3 ml 05/03/17 15:49 Normal Saline For Inhalation - IH Q6H PRN nasal stuffiness Impression 1. PNA 2. sepsis 3. anemia 4. CKD 5. multiple myeloma 6. malnutrition 7. proteinuria Plan - renal runction is worse today - check ua, lytes and talent specialist - cont fluids - check renal ultrasound - replace phos - talent specialist 0.8 to 1.2 to 1.1 to 1.4 - will follow Dr Soto
[2017-05-04 06:59] LABS: MCH 30.5 pg (25.7-33.7); MEAN CELL VOLUME 89.7 fl (80-96); PLATELET COUNT 183 K/MM3 (134-434); RDW 15.4 % (11.6-15.6)
[2017-05-04 07:29] LABS: ALBUMIN 2.1 g/dl (3.4-5.0); ANION GAP 10 (8-16); CALCIUM 7.9 mg/dL (8.5-10.1); CO2 23 mmol/L (21-32); CREATININE 1.3 mg/dL (0.55-1.02); GLUCOSE,RANDOM 71 mg/dL (74-106); MAGNESIUM 1.6 mg/dL (1.8-2.4); PHOSPHOROUS 2.1 mg/dL (2.5-4.9); SGOT/AST 33 U/L (15-37); SGPT/ALT 14 U/L (12-78)
[2017-05-04 07:30] LABS: ALK PHOS 56 U/L (45-117); BILIRUBIN,TOTAL 0.4 mg/dL (0.2-1.0); TOT PROT 5.3 g/dl (6.4-8.2)
[2017-05-04 09:39] LABS: TOTAL CELLS COUNTED 100
[2017-05-04 09:40] LABS: PLATELET ESTIMATE ADEQUATE
[2017-05-04] MEDS ORDERED: PT OWN MED DRAWER 7, Y5N ONE (10:32)
[2017-05-04] MEDS: CEFEPIME 2 GM in DEXTROSE 5%-WATER - 100 ML IVPB SCH (10:51)
[2017-05-04] MEDS: ENOXAPARIN NA (PORCINE) 30 MG/0.3 ML DISP.SYRIN SQ SCH (10:51)
--- NOTE | 2017-05-04 10:57 | PN ---
Progress Note (short form) - Note Progress Note: tachy History of Present Illness: no sob no cp no palpitations no dizzy - Current Medication List Current Medications Generic Name Dose Route Start Last Admin Trade Name Freq PRN Reason Stop Dose Admin Acetaminophen 650 mg 04/29/17 22:30 05/01/17 18:00 Tylenol - PO 650 mg Q6H PRN Administration TEMP >101* Albuterol Sulfate 1 amp 04/29/17 22:40 Ventolin 0.083% Nebulizer Soln - NEB Q6H PRN SHORT OF BREATH/WHEEZING Enoxaparin Sodium 30 mg 05/04/17 10:00 05/04/17 10:51 Lovenox - SQ Not Given DAILY [facility] Cefepime HCl 2 gm/ Dextrose 100 mls @ 200 mls/hr 05/01/17 10:45 05/04/17 10: 51 IVPB 200 mls/hr DAILY [facility] Administration Polyethylene Glycol 17 gm 05/03/17 12:23 Miralax (For Daily Use) - PO BID PRN CONSTIPATION Sodium Chloride 3 ml 05/03/17 15:49 Normal Saline For Inhalation - IH Q6H PRN nasal stuffiness - Objective Vital Signs: Vital Signs Period Temp Pulse Resp BP Sys/Saucedo Pulse Ox Last 24 Hr 97.5 F-99.6 F 88-112 18-20 99-112/52-74 95-98 Constitutional: Yes: Well Nourished, No Distress, Calm Cardiovascular: Yes: Regular Rate and Rhythm, S1, S2. No: Gallop, Murmur Respiratory: Yes: Regular, CTA Bilaterally. No: Accessory Muscle Use, Rales, Wheezes Extremities: No: Cold Edema: No Neurological: Yes: Alert, Oriented. No: Seizure Psychiatric: No: Agitated no diaphoresis jaundice Labs: CBC, BMP 05/04/17 06:00 05/04/17 06:00 echo 02/2017: nl lv/rv, mild mr/tr, nl rvsp cxr: no chf, +RUL pna ecg 04/29/17: st, pacs, nl intervals, no ischemic changes a/p: 81 f hx MM, hld, sent to er for ivfs. sinus tachy, pacs: -no signs of arrhythmia, just sinus tachy with pacs likely due to infection/ fever -recent tsh wnl -HR trend improving with tx of infection pna: -cont abx hld: -stable, diet control per prior plan MM: -on chemo per heme/onc
--- NOTE | 2017-05-04 11:25 | PN ---
Progress Note, Physician Chief Complaint: ID Cefepime and Azithrmycin - Current Medication List Current Medications: Active Medications Acetaminophen (Tylenol -) 650 mg PO Q6H PRN PRN Reason: TEMP >101* Last Admin: 05/01/17 18:00 Dose: 650 mg Albuterol Sulfate (Ventolin 0.083% Nebulizer Soln -) 1 amp NEB Q6H PRN PRN Reason: SHORT OF BREATH/WHEEZING Enoxaparin Sodium (Lovenox -) 30 mg SQ DAILY [facility] Last Admin: 05/04/17 10:51 Dose: Not Given Cefepime HCl 2 gm/ Dextrose 100 mls @ 200 mls/hr IVPB DAILY [facility] Last Admin: 05/04/17 10:51 Dose: 200 mls/hr Polyethylene Glycol (Miralax (For Daily Use) -) 17 gm PO BID PRN PRN Reason: CONSTIPATION Sodium Chloride (Normal Saline For Inhalation -) 3 ml IH Q6H PRN PRN Reason: nasal stuffiness - Objective Vital Signs: Vital Signs Temperature 97.8 F 05/04/17 09:00 Pulse Rate 98 H 05/04/17 09:00 Respiratory Rate 18 05/04/17 09:00 Blood Pressure 112/61 05/04/17 09:00 O2 Sat by Pulse Oximetry (%) 95 05/03/17 22:20 Constitutional: Yes: Mild Distress Neck: Yes: WNL, Supple Cardiovascular: Yes: Regular Rate and Rhythm, S1, S2 Respiratory: Yes: WNL, Regular, CTA Bilaterally, Rhonchi Gastrointestinal: Yes: Soft. No: Tenderness Edema: No Labs: CBC, BMP 05/04/17 06:00 05/04/17 06:00 INR, PTT INR 1.07 (0.82-1.09) 04/29/17 14:40 Assessment/Plan Microbiology 04/30/17 20:00 Throat Throat Culture - Final 04/30/17 20:00 Throat Group A Strep Rapid Antigen - Final NO BETA HEMOLYTIC STREPTOCOCCI ISOLATED 04/30/17 18:10 Urine - Urine Clean Catch Legionella Antigen - Final 04/30/17 18:10 Urine - Urine Clean Catch Streptococcus pneumoniae Antigen ( M - Final 04/30/17 10:10 Urine - Urine Clean Catch Urine Culture - Final Laboratory Tests 04/30/17 05/04/17 05/04/17 10:10 06:00 06:00 WBC 7.0 Hgb 9.1 L Hct 26.6 L Plt Count 183 BUN 24 H Creatinine 1.3 H Creat Clearance w eGFR 39.21 Ur Leukocyte Esterase 3+ H D Urine WBC (Auto) 207 Urine RBC (Auto) 3 Asessment Fever ? respiratory tract infection? PNA Culture negative Plan Continue empiric therapy as ordered Sammy GONSALES
[2017-05-04] MEDS: AZITHROMYCIN IVPB 500 MG in DEXTROSE 5%-WATER - 250 ML IVPB SCH (11:38)
--- NOTE | 2017-05-04 12:43 | PN ---
Progress Note, Physician Chief Complaint: Ms Fuentes says she feels ok. Denies cp, sob, n/v. - Current Medication List Current Medications: Active Medications Acetaminophen (Tylenol -) 650 mg PO Q6H PRN PRN Reason: TEMP >101* Last Admin: 05/01/17 18:00 Dose: 650 mg Albuterol Sulfate (Ventolin 0.083% Nebulizer Soln -) 1 amp NEB Q6H PRN PRN Reason: SHORT OF BREATH/WHEEZING Enoxaparin Sodium (Lovenox -) 30 mg SQ DAILY [facility] Last Admin: 05/04/17 10:51 Dose: Not Given Cefepime HCl 2 gm/ Dextrose 100 mls @ 200 mls/hr IVPB DAILY [facility] Last Admin: 05/04/17 10:51 Dose: 200 mls/hr Potassium Phosphate 16 mm/ (Sodium Chloride) 255.3333 mls @ 62.5 mls/hr IVPB ONCE ONE Stop: 05/04/17 16:47 Magnesium Sulfate (Magnesium Sulfate) 2 gm IVPB ONCE ONE Stop: 05/04/17 12:43 Polyethylene Glycol (Miralax (For Daily Use) -) 17 gm PO BID PRN PRN Reason: CONSTIPATION Sodium Chloride (Normal Saline For Inhalation -) 3 ml IH Q6H PRN PRN Reason: nasal stuffiness - Objective Vital Signs: Vital Signs Temperature 36.6 C 05/04/17 09:00 Pulse Rate 98 H 05/04/17 09:00 Respiratory Rate 18 05/04/17 09:00 Blood Pressure 112/61 05/04/17 09:00 O2 Sat by Pulse Oximetry (%) 95 05/03/17 22:20 Constitutional: Yes: Well Nourished, No Distress, Calm Cardiovascular: Yes: Regular Rate and Rhythm. No: Gallop, Murmur, Rub Respiratory: Yes: Regular, CTA Bilaterally. No: Rales, Rhonchi, Wheezes Gastrointestinal: Yes: Normal Bowel Sounds, Soft. No: Distention, Tenderness Extremities: Yes: WNL Edema: No Labs: CBC, BMP 05/04/17 06:00 05/04/17 06:00 INR, PTT INR 1.07 (0.82-1.09) 04/29/17 14:40 Assessment/Plan 1. Pneumonia -continue cefepime and zithromax per ID -defer course and duration to ID 2. Sepsis -resolved -continue antibiotics for pneumonia per ID 3. Anemia -secondary to multiple myeloma and treatment -expect some dilutional affect as well -hematology following 4. CKD -Dr Soto following -creatinine stable 5. Multiple myeloma -hematology/oncology following 6. Hypophosphatemia/magnesemia -replace with IV magnesium and phosphorus
[2017-05-04] MEDS ORDERED: MAGNESIUM SULF 50% (8.12 MEQ/2 ML-1 GM VIAL) IVPB ONE (13:00)
[2017-05-04] MEDS ORDERED: POTASSIUM PHOSPHATE 16 MM in SODIUM CHLORIDE 250 ML IVPB ONE (13:15)
--- NOTE | 2017-05-04 13:56 | PN ---
Progress Note (short form) - Note Progress Note: Patient seen and examined daughters at [facility] says that she feels "tired" and "exhausted"today O/E No thrush Diminished breath sounds with poor inspiratory effort Cor: RSR Abdomen soft Ext- no significant edema Last Vital Signs Temp Pulse Resp BP Pulse Ox 97.8 F 98 H 18 112/61 95 05/04/17 09:00 05/04/17 09:00 05/04/17 09:00 05/04/17 09:00 05/03/17 22:20 CBC, BMP 05/04/17 06:00 05/04/17 06:00 Current Medications Generic Name Dose Route Start Last Admin Trade Name Freq PRN Reason Stop Dose Admin Acetaminophen 650 mg 04/29/17 22:30 05/01/17 18:00 Tylenol - PO 650 mg Q6H PRN Administration TEMP >101* Albuterol Sulfate 1 amp 04/29/17 22:40 Ventolin 0.083% Nebulizer Soln - NEB Q6H PRN SHORT OF BREATH/WHEEZING Enoxaparin Sodium 30 mg 05/04/17 10:00 05/04/17 10:51 Lovenox - SQ Not Given DAILY [facility] Cefepime HCl 2 gm/ Dextrose 100 mls @ 200 mls/hr 05/01/17 10:45 05/04/17 10: 51 IVPB 200 mls/hr DAILY [facility] Administration Potassium Phosphate 16 mm/ 255.3333 mls @ 63.833 mls/hr 05/04/17 13:15 Sodium Chloride IVPB 05/04/17 17:14 ONCE ONE Polyethylene Glycol 17 gm 05/03/17 12:23 Miralax (For Daily Use) - PO BID PRN CONSTIPATION Sodium Chloride 3 ml 05/03/17 15:49 Normal Saline For Inhalation - IH Q6H PRN nasal stuffiness Assessment/Plan: Pneumonia Myeloma - not in remission s/p chemotherpy PNA Plan: abx per ID s/p 5days of zithromax and now on cefepime electrolyte replacement ( hypoPhos/Hypo MAg) rib xrays reviewed, no rib fracture noted, possible lesion, will consider Skeletal Survey ,d/w daughters. US reviewed ,LFTs wnl miralax PT eval Myeloma labs as per request of the daughters refused DVT ppx.
--- NOTE | 2017-05-04 14:42 | PN ---
Progress Note, Physician History of Present Illness: Pt seen and examined at bedside. She is out of bed to chair. She denies shortness of breath. - Current Medication List Current Medications: Active Medications Acetaminophen (Tylenol -) 650 mg PO Q6H PRN PRN Reason: TEMP >101* Last Admin: 05/01/17 18:00 Dose: 650 mg Albuterol Sulfate (Ventolin 0.083% Nebulizer Soln -) 1 amp NEB Q6H PRN PRN Reason: SHORT OF BREATH/WHEEZING Enoxaparin Sodium (Lovenox -) 30 mg SQ DAILY [facility] Last Admin: 05/04/17 10:51 Dose: Not Given Cefepime HCl 2 gm/ Dextrose 100 mls @ 200 mls/hr IVPB DAILY [facility] Last Admin: 05/04/17 10:51 Dose: 200 mls/hr Potassium Phosphate 16 mm/ (Sodium Chloride) 255.3333 mls @ 63.833 mls/hr IVPB ONCE ONE Stop: 05/04/17 17:14 Polyethylene Glycol (Miralax (For Daily Use) -) 17 gm PO BID PRN PRN Reason: CONSTIPATION Sodium Chloride (Normal Saline For Inhalation -) 3 ml IH Q6H PRN PRN Reason: nasal stuffiness - Objective Vital Signs: Vital Signs Temperature 97.8 F 05/04/17 09:00 Pulse Rate 98 H 05/04/17 09:00 Respiratory Rate 18 05/04/17 09:00 Blood Pressure 112/61 05/04/17 09:00 O2 Sat by Pulse Oximetry (%) 95 05/03/17 22:20 Constitutional: Yes: Calm Eyes: Yes: Conjunctiva Clear HENT: Yes: Atraumatic Neck: Yes: Supple Cardiovascular: Yes: S1, S2 Respiratory: Yes: CTA Bilaterally, On Nasal O2 Gastrointestinal: Yes: Soft Genitourinary: Yes: WNL Musculoskeletal: Yes: WNL Edema: No Neurological: Yes: Oriented Psychiatric: Yes: Oriented Labs: CBC, BMP 05/04/17 06:00 05/04/17 06:00 INR, PTT INR 1.07 (0.82-1.09) 04/29/17 14:40 Problem List - Problems (1) Multiple myeloma Code(s): C90.00 - MULTIPLE MYELOMA NOT HAVING ACHIEVED REMISSION (2) Pneumonia Code(s): J18.9 - PNEUMONIA, UNSPECIFIED ORGANISM Assessment/Plan Current Medications Generic Name Dose Route Start Last Admin Trade Name Freq PRN Reason Stop Dose Admin Acetaminophen 650 mg 04/29/17 22:30 05/01/17 18:00 Tylenol - PO 650 mg Q6H PRN Administration TEMP >101* Albuterol Sulfate 1 amp 04/29/17 22:40 Ventolin 0.083% Nebulizer Soln - NEB Q6H PRN SHORT OF BREATH/WHEEZING Enoxaparin Sodium 30 mg 05/04/17 10:00 Lovenox - SQ DAILY [facility] Azithromycin 500 mg/ Dextrose 250 mls @ 250 mls/hr 05/01/17 10:30 05/03/17 10 :21 IVPB 250 mls/hr DAILY [facility] Administration Cefepime HCl 2 gm/ Dextrose 100 mls @ 200 mls/hr 05/01/17 10:45 05/03/17 09: 32 IVPB 200 mls/hr DAILY [facility] Administration Polyethylene Glycol 17 gm 05/03/17 12:23 Miralax (For Daily Use) - PO BID PRN CONSTIPATION Sodium Chloride 3 ml 05/03/17 15:49 Normal Saline For Inhalation - IH Q6H PRN nasal stuffiness Impression 1. PNA 2. sepsis 3. anemia 4. CKD 5. multiple myeloma 6. malnutrition 7. proteinuria 8. possible hepatocellular disease seen on ultrasound Plan - reviewed renal ultrasound - consider GI follow up - creatinine is improved from yesterday - cont fluids - replace phos and mag - will follow Dr Soto
[2017-05-04] MEDS: POLYETHYLENE GLYCOL 3350 119 GM BTL PO PRN (16:54)
[2017-05-04 22:51] LABS: URINE APPEARANCE CLEAR; URINE BILIRUBIN NEGATIVE (NEGATIVE); URINE BLOOD NEGATIVE (NEGATIVE); URINE COLOR STRAW; URINE GLUCOSE (UA) NEGATIVE (NEGATIVE); URINE KETONE NEGATIVE (NEGATIVE); URINE LEUK ESTERASE NEGATIVE (NEGATIVE); URINE NITRITE NEGATIVE (NEGATIVE); URINE UROBILINOGEN NEGATIVE mg/dL (0.2-1.0)
[2017-05-04 23:21] LABS: URINE PROTEIN 1+ (NEGATIVE)
[2017-05-04 23:35] LABS: URINE BACTERIA RARE /hpf (NONE SEEN); URINE MUCUS RARE; URINE RBC <1 /hpf (0-3); URINE WBC <1 /hpf (3-5)
[2017-05-05 07:57] LABS: MCH 30.5 pg (25.7-33.7); MCHC 33.8 g/dl (32.0-36.0); MEAN CELL VOLUME 90.4 fl (80-96); MEAN PLT VOLUME 7.3 fl (7.5-11.1); PLATELET COUNT 205 K/MM3 (134-434); RDW 15.4 % (11.6-15.6); WHITE BLOOD COUNT 7.3 K/mm3 (4.0-10.0)
[2017-05-05 08:51] LABS: ANION GAP 7 (8-16); CALCIUM 7.4 mg/dL (8.5-10.1); CO2 24 mmol/L (21-32); CREATININE 1.2 mg/dL (0.55-1.02); GLUCOSE,RANDOM 73 mg/dL (74-106); MAGNESIUM 2.5 mg/dL (1.8-2.4); PHOSPHOROUS 2.5 mg/dL (2.5-4.9)
--- NOTE | 2017-05-05 09:33 | PN ---
Progress Note (short form) - Note Progress Note: Patient seen and examined OOB to chair , eating breakfast O/E No thrush Diminished breath sounds with poor inspiratory effort Cor: RSR Abdomen soft Ext- no significant edema Last Vital Signs Temp Pulse Resp BP Pulse Ox 97.4 F L 107 H 20 111/59 98 05/05/17 06:00 05/05/17 06:00 05/05/17 06:00 05/05/17 06:00 05/04/17 20:08 CBC, BMP 05/05/17 07:35 05/05/17 07:35 Current Medications Generic Name Dose Route Start Last Admin Trade Name Freq PRN Reason Stop Dose Admin Acetaminophen 650 mg 04/29/17 22:30 05/01/17 18:00 Tylenol - PO 650 mg Q6H PRN Administration TEMP >101* Albuterol Sulfate 1 amp 04/29/17 22:40 Ventolin 0.083% Nebulizer Soln - NEB Q6H PRN SHORT OF BREATH/WHEEZING Enoxaparin Sodium 30 mg 05/04/17 10:00 05/04/17 10:51 Lovenox - SQ Not Given DAILY [facility] Cefepime HCl 2 gm/ Dextrose 100 mls @ 200 mls/hr 05/01/17 10:45 05/04/17 10: 51 IVPB 200 mls/hr DAILY [facility] Administration Polyethylene Glycol 17 gm 05/03/17 12:23 05/04/17 16:54 Miralax (For Daily Use) - PO 17 grams BID PRN Administration CONSTIPATION Sodium Chloride 3 ml 05/03/17 15:49 Normal Saline For Inhalation - IH Q6H PRN nasal stuffiness Assessment/Plan: Pneumonia Myeloma - not in remission s/p chemotherpy SHANIA improving. Plan: abx per ID s/p 5days of zithromax and now on cefepime electrolyte normal today miralax PT eval Myeloma labs pending from today refused DVT ppx.
[2017-05-05] MEDS: CEFEPIME 2 GM in DEXTROSE 5%-WATER - 100 ML IVPB SCH (09:38)
[2017-05-05] MEDS: ENOXAPARIN NA (PORCINE) 30 MG/0.3 ML DISP.SYRIN SQ SCH (09:41)
[2017-05-05] MEDS: POLYETHYLENE GLYCOL 3350 119 GM BTL PO PRN (09:42)
--- NOTE | 2017-05-05 10:53 | PN ---
Progress Note (short form) - Note Progress Note: no fevers remains weak oob in chair more conversant Vital Signs Period Temp Pulse Resp BP Sys/Saucedo Pulse Ox Last 24 Hr 97.4 F-99.1 F 102-114 20-20 96-124/59-71 97-98 cor-rrr lungs crackles left base abd soft,nt ext no edema CBC, BMP 05/05/17 07:35 05/05/17 07:35 Microbiology 04/29/17 20:55 Blood - Peripheral Venous Blood Culture - Final NO GROWTH AFTER 5 DAYS INCUBATION 04/29/17 21:00 Blood - Peripheral Venous Blood Culture - Final NO GROWTH AFTER 5 DAYS INCUBATION 04/29/17 13:10 Blood - Peripheral Venous Blood Culture - Final NO GROWTH AFTER 5 DAYS INCUBATION 04/29/17 13:05 Blood - Peripheral Venous Blood Culture - Final NO GROWTH AFTER 5 DAYS INCUBATION legionella urinary antigen is negative a/p pneumonia continue cefepime day #6 of 7 for pneumonia has finished 5 days of zithromax multiple myeloma s/p chemotherapy aj/ckd Problem List - Problems (1) Pneumonia Code(s): J18.9 - PNEUMONIA, UNSPECIFIED ORGANISM (2) Multiple myeloma Code(s): C90.00 - MULTIPLE MYELOMA NOT HAVING ACHIEVED REMISSION Qualifiers:
[2017-05-05 11:25] LABS: ACANTHOCYTES 0; ANISOCYTOSIS 0; BAND % 2.1 %; BURR CELLS 0; CABBOT RINGS 0; HELMET CELLS 0; HOWELL-JOLLY BODIES 0; HYPOCHROMIA 0; MACROCYTOSIS 0; METAMYELOCYTE 0 % (0-2); MICROCYTOSIS 0; MYELOCYTE 0 % (0-2); OVALOCYTE 0; PLATELET ESTIMATE NORMAL; POIKILOCYTOSIS 0; POLYCHROMASIA 0; REACTIVE LYMPHOCYTES 2 % (0-80); SCHISTOCYTES 0; SPHEROCYTE 0; STOMATOCYTE 0; TARGET CELLS 0; TEAR DROP CELLS 0; TOXIC GRANULATION 0
--- NOTE | 2017-05-05 14:14 | DS ---
Physical Examination Vital Signs: Vital Signs Last Vital Signs Temp Pulse Resp BP Pulse Ox 97.0 F L 120 H 20 91/59 95 05/10/17 10:00 05/10/17 10:00 05/10/17 10:00 05/10/17 10:00 05/10/17 10:00 Current Medications Generic Name Dose Route Start Last Admin Trade Name Freq PRN Reason Stop Dose Admin Acetaminophen 650 mg 04/29/17 22:30 05/01/17 18:00 Tylenol - PO 650 mg Q6H PRN Administration TEMP >101* Albuterol Sulfate 1 amp 04/29/17 22:40 Ventolin 0.083% Nebulizer Soln - NEB Q6H PRN SHORT OF BREATH/WHEEZING Enoxaparin Sodium 30 mg 05/04/17 10:00 05/10/17 09:12 Lovenox - SQ Not Given DAILY [facility] Potassium Phosphate 15 mm/ 255 mls @ 62.5 mls/hr 05/10/17 10:02 Sodium Chloride IVPB 05/10/17 14:06 ONCE ONE Polyethylene Glycol 17 gm 05/03/17 12:23 05/09/17 17:06 Miralax (For Daily Use) - PO 17 grams BID PRN Administration CONSTIPATION Sodium Chloride 3 ml 05/03/17 15:49 Normal Saline For Inhalation - IH Q6H PRN nasal stuffiness CBC, BMP 05/10/17 06:00 05/10/17 06:00 Constitutional: Yes: No Distress, Calm HENT: Yes: Atraumatic, Normocephalic Neck: Yes: Supple Cardiovascular: Yes: Regular Rate and Rhythm Respiratory: Yes: Regular, CTA Bilaterally Gastrointestinal: Yes: Normal Bowel Sounds, Soft Extremities: Yes: WNL Edema: No Labs: CBC, BMP 05/05/17 07:35 05/05/17 07:35 Discharge Summary Reason For Visit: MULTIPLE MYELOMA Current Active Problems Multiple myeloma (Acute) Pneumonia (Acute) Hospital Course: Admitted for fever and tachy cardia treated for sepsis from PNA treated with 5 days of zithromax ( IV ) and 7 days of cefepime ( IV ) as of 05/06 Declined vaccinations/DVT ppx . She has received one unit of PRBC through the course Hypomag and HypoPhos were corrected She was evaluated by cardiology/Pulm/ID She underwent a repeat CT Chest , no inflil, stable chronic ILD. Being discharged with Home O2. VNS re-initiated. Encourage good PO intake at home. she is stable to be discharged for OP f/u in our office for further care. Condition: Fair - Instructions Disposition: VNS/HOME HEALTH CARE - Home Medications Comprehensive Discharge Medication List: Ambulatory Orders Calcium 500Mg/Vit-D 200 Units [Os-Ilan 500+D -] 1 tab PO DAILY #30 tab 02/10/17 Pantoprazole Sodium [Protonix -] 40 mg PO DAILY #30 tab.ec 02/10/17 allopurinol 100mg daily
[2017-05-05 15:11] LABS: URINE LEUK ESTERASE Negative (NEGATIVE)
--- NOTE | 2017-05-05 15:49 | PN ---
Progress Note, Physician Chief Complaint: Ms Fuentes says she feels ok. Denies cp, sob, n/v. - Current Medication List Current Medications: Active Medications Acetaminophen (Tylenol -) 650 mg PO Q6H PRN PRN Reason: TEMP >101* Last Admin: 05/01/17 18:00 Dose: 650 mg Albuterol Sulfate (Ventolin 0.083% Nebulizer Soln -) 1 amp NEB Q6H PRN PRN Reason: SHORT OF BREATH/WHEEZING Enoxaparin Sodium (Lovenox -) 30 mg SQ DAILY [facility] Last Admin: 05/05/17 09:41 Dose: Not Given Cefepime HCl 2 gm/ Dextrose 100 mls @ 200 mls/hr IVPB DAILY [facility] Last Admin: 05/05/17 09:38 Dose: 200 mls/hr Polyethylene Glycol (Miralax (For Daily Use) -) 17 gm PO BID PRN PRN Reason: CONSTIPATION Last Admin: 05/05/17 09:42 Dose: 17 grams Sodium Chloride (Normal Saline For Inhalation -) 3 ml IH Q6H PRN PRN Reason: nasal stuffiness - Objective Vital Signs: Vital Signs Temperature 36.2 C L 05/05/17 13:56 Pulse Rate 113 H 05/05/17 13:56 Respiratory Rate 20 05/05/17 13:56 Blood Pressure 100/60 05/05/17 13:56 O2 Sat by Pulse Oximetry (%) 97 05/05/17 10:49 Constitutional: Yes: Well Nourished, No Distress, Calm Cardiovascular: Yes: Regular Rate and Rhythm. No: Gallop, Murmur, Rub Respiratory: Yes: Regular, CTA Bilaterally. No: Rales, Rhonchi, Wheezes Gastrointestinal: Yes: Normal Bowel Sounds, Soft. No: Distention, Tenderness Extremities: Yes: WNL Edema: No Labs: CBC, BMP 05/05/17 07:35 05/05/17 07:35 INR, PTT INR 1.07 (0.82-1.09) 04/29/17 14:40 Assessment/Plan 1. Pneumonia -appreciate ID assistance -finished full course of antibiotics 2. Sepsis -resolved -continue antibiotics for pneumonia per ID 3. Anemia -secondary to multiple myeloma and treatment -expect some dilutional affect as well -hematology following 4. CKD -Dr Samarneh following -creatinine stable 5. Multiple myeloma -hematology/oncology following 6. Hypophosphatemia/magnesemia -replaced Dispo -discharge today
--- NOTE | 2017-05-05 16:07 | PN ---
Progress Note, Physician History of Present Illness: Pt seen and examined at bedside. She is awake and appears comfortable. She denies shortness of breath. - Current Medication List Current Medications: Active Medications Acetaminophen (Tylenol -) 650 mg PO Q6H PRN PRN Reason: TEMP >101* Last Admin: 05/01/17 18:00 Dose: 650 mg Albuterol Sulfate (Ventolin 0.083% Nebulizer Soln -) 1 amp NEB Q6H PRN PRN Reason: SHORT OF BREATH/WHEEZING Enoxaparin Sodium (Lovenox -) 30 mg SQ DAILY [facility] Last Admin: 05/05/17 09:41 Dose: Not Given Cefepime HCl 2 gm/ Dextrose 100 mls @ 200 mls/hr IVPB DAILY [facility] Last Admin: 05/05/17 09:38 Dose: 200 mls/hr Polyethylene Glycol (Miralax (For Daily Use) -) 17 gm PO BID PRN PRN Reason: CONSTIPATION Last Admin: 05/05/17 09:42 Dose: 17 grams Sodium Chloride (Normal Saline For Inhalation -) 3 ml IH Q6H PRN PRN Reason: nasal stuffiness - Objective Vital Signs: Vital Signs Temperature 97.1 F L 05/05/17 13:56 Pulse Rate 113 H 05/05/17 13:56 Respiratory Rate 20 05/05/17 13:56 Blood Pressure 100/60 05/05/17 13:56 O2 Sat by Pulse Oximetry (%) 97 05/05/17 10:49 Constitutional: Yes: Calm Eyes: Yes: Conjunctiva Clear HENT: Yes: Atraumatic Neck: Yes: Supple Cardiovascular: Yes: S1, S2 Respiratory: Yes: CTA Bilaterally Gastrointestinal: Yes: Normal Bowel Sounds, Soft Genitourinary: Yes: WNL Extremities: Yes: WNL Edema: No Neurological: Yes: Oriented Psychiatric: Yes: Oriented Labs: CBC, BMP 05/05/17 07:35 05/05/17 07:35 INR, PTT INR 1.07 (0.82-1.09) 04/29/17 14:40 Problem List - Problems (1) Multiple myeloma Code(s): C90.00 - MULTIPLE MYELOMA NOT HAVING ACHIEVED REMISSION (2) Pneumonia Code(s): J18.9 - PNEUMONIA, UNSPECIFIED ORGANISM Assessment/Plan Current Medications Generic Name Dose Route Start Last Admin Trade Name Freq PRN Reason Stop Dose Admin Acetaminophen 650 mg 04/29/17 22:30 05/01/17 18:00 Tylenol - PO 650 mg Q6H PRN Administration TEMP >101* Albuterol Sulfate 1 amp 04/29/17 22:40 Ventolin 0.083% Nebulizer Soln - NEB Q6H PRN SHORT OF BREATH/WHEEZING Enoxaparin Sodium 30 mg 05/04/17 10:00 05/05/17 09:41 Lovenox - SQ Not Given DAILY [facility] Cefepime HCl 2 gm/ Dextrose 100 mls @ 200 mls/hr 05/01/17 10:45 05/05/17 09: 38 IVPB 200 mls/hr DAILY [facility] Administration Polyethylene Glycol 17 gm 05/03/17 12:23 05/05/17 09:42 Miralax (For Daily Use) - PO 17 grams BID PRN Administration CONSTIPATION Sodium Chloride 3 ml 05/03/17 15:49 Normal Saline For Inhalation - IH Q6H PRN nasal stuffiness Laboratory Tests 05/04/17 05/05/17 06:00 07:35 Creatinine 1.3 H Phosphorus 2.1 L 2.5 Magnesium 1.6 L 2.5 H D Impression 1. PNA 2. sepsis 3. anemia 4. CKD 5. multiple myeloma 6. malnutrition 7. proteinuria 8. possible hepatocellular disease seen on ultrasound Plan - renal function is improving - monitor labs - phos and mag improved - will follow PRN - discussed case with daughter Dr Soto
[2017-05-06 08:17] LABS: MCH 30.7 pg (25.7-33.7); MCHC 33.8 g/dl (32.0-36.0); MEAN CELL VOLUME 90.7 fl (80-96); MEAN PLT VOLUME 7.1 fl (7.5-11.1); PLATELET COUNT 214 K/MM3 (134-434); RDW 15.5 % (11.6-15.6); WHITE BLOOD COUNT 6.7 K/mm3 (4.0-10.0)
[2017-05-06 08:41] LABS: ANION GAP 8 (8-16); CALCIUM 7.9 mg/dL (8.5-10.1); CO2 25 mmol/L (21-32); CREATININE 1.2 mg/dL (0.55-1.02); GLUCOSE,RANDOM 65 mg/dL (74-106); MAGNESIUM 2.2 mg/dL (1.8-2.4); PHOSPHOROUS 2.5 mg/dL (2.5-4.9)
[2017-05-06] MEDS ORDERED: PT OWN MED DRAWER 7, Y5N ONE (09:25)
[2017-05-06 09:33] LABS: TOTAL CELLS COUNTED 100
[2017-05-06 09:34] LABS: HYPOCHROMIA 1+; MICROCYTOSIS 1+; PLATELET COMMENTS NO CLUMPING NOTED; PLATELET ESTIMATE ADEQUATE; POLYCHROMASIA 1+; REACTIVE LYMPHOCYTES 3 % (0-80)
[2017-05-06] MEDS: ENOXAPARIN NA (PORCINE) 30 MG/0.3 ML DISP.SYRIN SQ SCH (09:41)
[2017-05-06] MEDS: CEFEPIME 2 GM in DEXTROSE 5%-WATER - 100 ML IVPB SCH (10:08)
--- NOTE | 2017-05-06 14:54 | PN ---
Progress Note (short form) - Note Progress Note: Patient seen and examined Feels well. Denies any complaints Last Vital Signs Temp Pulse Resp BP Pulse Ox 97.9 F 112 H 18 109/63 94 L 05/06/17 13:39 05/06/17 13:39 05/06/17 13:39 05/06/17 13:39 05/06/17 09:00 Cor: RSR, No murmurs, No gallops Lungs: Clear to P&A Abd: Soft, Normal bowel sounds, No organomegaly Ext:No significant edema Abnormal Lab Results 05/06/17 05/06/17 06:20 06:20 RBC 2.90 L Hgb 8.9 L Hct 26.3 L MPV 7.1 L Lymphocytes % (Manual) 41.0 H BUN 29 H Creatinine 1.2 H Random Glucose 65 L Calcium 7.9 L Active Medications Generic Name Dose Route Start Last Admin Trade Name Freq PRN Reason Stop Dose Admin Acetaminophen 650 mg 04/29/17 22:30 05/01/17 18:00 Tylenol - PO 650 mg Q6H PRN Administration TEMP >101* Albuterol Sulfate 1 amp 04/29/17 22:40 Ventolin 0.083% Nebulizer Soln - NEB Q6H PRN SHORT OF BREATH/WHEEZING Enoxaparin Sodium 30 mg 05/04/17 10:00 05/06/17 09:41 Lovenox - SQ Not Given DAILY [facility] Cefepime HCl 2 gm/ Dextrose 100 mls @ 200 mls/hr 05/01/17 10:45 05/06/17 10: 08 IVPB 200 mls/hr DAILY [facility] Administration Polyethylene Glycol 17 gm 05/03/17 12:23 05/05/17 09:42 Miralax (For Daily Use) - PO 17 grams BID PRN Administration CONSTIPATION Sodium Chloride 3 ml 05/03/17 15:49 Normal Saline For Inhalation - IH Q6H PRN nasal stuffiness A/P 81 y/o patient with myeloma, on carfilzomib/cytoxan/dex came in with hypotension /fevers RUL infiltrate On cefepime will check home O2 eval d/c planning
--- NOTE | 2017-05-06 16:04 | PN ---
Physical Exam: The hospitalist service has been asked to provide medical consult coverage today for Dr. Gregorio. The chart has been reviewed and events noted. Patient is ready for discharge. Discussed with Dr. Akers who is on the admitting service for this patient. She plans on discharging the patient either tomorrow or Monday after home discharge planning is complete. Thank you for this consultative opportunity. Please call us if we can be of any further assistance. Visit type - Emergency Visit Emergency Visit: Yes ED Registration Date: 04/30/17 Care time: The patient presented to the Emergency Department on the above date and was hospitalized for further evaluation of their emergent condition. - New Patient This patient is new to me today: Yes Date on this admission: 05/06/17 - Critical Care Critical Care patient: No - Discharge Referral Referred to [facility] Med P.C.: No
--- NOTE | 2017-05-06 23:29 | PN ---
Progress Note (short form) - Note Progress Note: 1. PNA 2. sepsis 3. anemia 4. CKD 5. multiple myeloma 6. malnutrition 7. proteinuria 8. possible hepatocellular disease seen on ultrasound Current Medications Acetaminophen (Tylenol -) 650 mg PO Q6H PRN PRN Reason: TEMP >101* Last Admin: 05/01/17 18:00 Dose: 650 mg Albuterol Sulfate (Ventolin 0.083% Nebulizer Soln -) 1 amp NEB Q6H PRN PRN Reason: SHORT OF BREATH/WHEEZING Enoxaparin Sodium (Lovenox -) 30 mg SQ DAILY [facility] Last Admin: 05/06/17 09:41 Dose: Not Given Cefepime HCl 2 gm/ Dextrose 100 mls @ 200 mls/hr IVPB DAILY [facility] Last Admin: 05/06/17 10:08 Dose: 200 mls/hr Polyethylene Glycol (Miralax (For Daily Use) -) 17 gm PO BID PRN PRN Reason: CONSTIPATION Last Admin: 05/05/17 09:42 Dose: 17 grams Sodium Chloride (Normal Saline For Inhalation -) 3 ml IH Q6H PRN PRN Reason: nasal stuffiness Last Vital Signs Temp Pulse Resp BP Pulse Ox 97.6 F 112 H 18 109/65 94 L 05/06/17 19:07 05/06/17 19:07 05/06/17 19:07 05/06/17 19:07 05/06/17 09:00 CBC, BMP 05/06/17 06:20 05/06/17 06:20 Plan - renal function is improving - monitor labs - phos and mag improved - will follow PRN - discussed case with daughter
[2017-05-07 07:09] LABS: MCH 30.5 pg (25.7-33.7); MEAN CELL VOLUME 89.8 fl (80-96); PLATELET COUNT 211 K/MM3 (134-434); RDW 15.2 % (11.6-15.6); WHITE BLOOD COUNT 5.2 K/mm3 (4.0-10.0)
[2017-05-07 07:18] LABS: ANION GAP 6 (8-16); CALCIUM 7.7 mg/dL (8.5-10.1); CO2 27 mmol/L (21-32); CREATININE 1.2 mg/dL (0.55-1.02); GLUCOSE,RANDOM 74 mg/dL (74-106); SGOT/AST 34 U/L (15-37); SGPT/ALT 15 U/L (12-78)
[2017-05-07 07:20] LABS: ALK PHOS 63 U/L (45-117); BILIRUBIN,TOTAL 0.4 mg/dL (0.2-1.0); TOT PROT 5.4 g/dl (6.4-8.2)
[2017-05-07] MEDS: POLYETHYLENE GLYCOL 3350 119 GM BTL PO PRN (09:32)
[2017-05-07] MEDS: CEFEPIME 2 GM in DEXTROSE 5%-WATER - 100 ML IVPB SCH (09:32)
[2017-05-07 10:37] LABS: METAMYELOCYTE 1 % (0-2); REACTIVE LYMPHOCYTES 6 % (0-80); TOTAL CELLS COUNTED 100
[2017-05-07 10:38] LABS: PLATELET ESTIMATE ADEQUATE
[2017-05-07] MEDS: ENOXAPARIN NA (PORCINE) 30 MG/0.3 ML DISP.SYRIN SQ SCH (10:45)
--- NOTE | 2017-05-07 12:55 | PN ---
Progress Note (short form) - Note Progress Note: no fevers remains weak oob in chair more conversant eating lunch Vital Signs Period Temp Pulse Resp BP Sys/Saucedo Pulse Ox Last 24 Hr 97.6 F-98.4 F 98-112 18-20 89-109/50-65 85 cor-rrr lungs decreased bs at bases abd soft,nt ext +edema CBC, BMP 05/07/17 05:30 05/07/17 05:30 Microbiology 04/29/17 20:55 Blood - Peripheral Venous Blood Culture - Final NO GROWTH AFTER 5 DAYS INCUBATION 04/29/17 21:00 Blood - Peripheral Venous Blood Culture - Final NO GROWTH AFTER 5 DAYS INCUBATION 04/29/17 13:10 Blood - Peripheral Venous Blood Culture - Final NO GROWTH AFTER 5 DAYS INCUBATION 04/29/17 13:05 Blood - Peripheral Venous Blood Culture - Final NO GROWTH AFTER 5 DAYS INCUBATION 04/30/17 20:00 Throat Throat Culture - Final NO BETA HEMOLYTIC STREPTOCOCCI ISOLATED 04/30/17 20:00 Throat Group A Strep Rapid Antigen - Final 04/30/17 10:10 Urine - Urine Clean Catch Urine Culture - Final 04/30/17 18:10 Urine - Urine Clean Catch Legionella Antigen - Final 04/30/17 18:10 Urine - Urine Clean Catch Streptococcus pneumoniae Antigen ( M - Final legionella urinary antigen is negative a/p pneumonia d/c cefepime, finished 7 days yesterday has finished 5 days of zithromax multiple myeloma s/p chemotherapy aj/ckd has completed antibiotics for pnemonia no fevers please call back if needed Problem List - Problems (1) Pneumonia Code(s): J18.9 - PNEUMONIA, UNSPECIFIED ORGANISM (2) Multiple myeloma Code(s): C90.00 - MULTIPLE MYELOMA NOT HAVING ACHIEVED REMISSION Qualifiers:
--- NOTE | 2017-05-07 14:49 | PN ---
Progress Note (short form) - Note Progress Note: Patient seen and examined Feels well. +cough Last Vital Signs Temp Pulse Resp BP Pulse Ox 98.2 F 118 H 18 99/58 85 L 05/07/17 13:02 05/07/17 13:02 05/07/17 13:02 05/07/17 13:02 05/07/17 10:42 Cor: RSR, No murmurs, No gallops Lungs: Clear to P&A Abd: Soft, Normal bowel sounds, No organomegaly Ext:No significant edema Abnormal Lab Results 05/05/17 05/07/17 05/07/17 07:35 05:30 05:30 RBC 2.81 L Hgb 8.6 L Hct 25.2 L MPV 7.0 L Anion Gap 6 L BUN 33 H Creatinine 1.2 H Calcium 7.7 L Total Protein 5.4 L Albumin 2.0 L Free [place] LC, Quant 2448.8 H Free L[place] LC, Quant 5.5 L Free [place]/Lambda Ratio 445.24 H Active Medications Generic Name Dose Route Start Last Admin Trade Name Freq PRN Reason Stop Dose Admin Acetaminophen 650 mg 04/29/17 22:30 05/01/17 18:00 Tylenol - PO 650 mg Q6H PRN Administration TEMP >101* Albuterol Sulfate 1 amp 04/29/17 22:40 Ventolin 0.083% Nebulizer Soln - NEB Q6H PRN SHORT OF BREATH/WHEEZING Enoxaparin Sodium 30 mg 05/04/17 10:00 05/07/17 10:45 Lovenox - SQ Not Given DAILY [facility] Polyethylene Glycol 17 gm 05/03/17 12:23 05/07/17 09:32 Miralax (For Daily Use) - PO 17 grams BID PRN Administration CONSTIPATION Sodium Chloride 3 ml 05/03/17 15:49 Normal Saline For Inhalation - IH Q6H PRN nasal stuffiness A/P 81 y/o patient with myeloma, on carfilzomib/cytoxan/dex came in with hypotension /fevers RUL infiltrate On cefepime--stopped today home O2 repeat CXR discussed with patient and family
[2017-05-08] MEDS: ENOXAPARIN NA (PORCINE) 30 MG/0.3 ML DISP.SYRIN SQ SCH (11:27)
--- NOTE | 2017-05-08 12:36 | PN ---
Progress Note, Physician History of Present Illness: Pt seen and examined at bedside. She is awake and alert. She denies shortness of breath. - Current Medication List Current Medications: Active Medications Acetaminophen (Tylenol -) 650 mg PO Q6H PRN PRN Reason: TEMP >101* Last Admin: 05/01/17 18:00 Dose: 650 mg Albuterol Sulfate (Ventolin 0.083% Nebulizer Soln -) 1 amp NEB Q6H PRN PRN Reason: SHORT OF BREATH/WHEEZING Enoxaparin Sodium (Lovenox -) 30 mg SQ DAILY [facility] Last Admin: 05/08/17 11:27 Dose: Not Given Polyethylene Glycol (Miralax (For Daily Use) -) 17 gm PO BID PRN PRN Reason: CONSTIPATION Last Admin: 05/07/17 09:32 Dose: 17 grams Sodium Chloride (Normal Saline For Inhalation -) 3 ml IH Q6H PRN PRN Reason: nasal stuffiness - Objective Vital Signs: Vital Signs Temperature 97.3 F L 05/08/17 06:00 Pulse Rate 97 H 05/08/17 06:00 Respiratory Rate 18 05/08/17 06:00 Blood Pressure 80/50 05/08/17 06:00 O2 Sat by Pulse Oximetry (%) 92 L 05/07/17 21:00 Constitutional: Yes: Calm Eyes: Yes: Conjunctiva Clear HENT: Yes: Atraumatic Neck: Yes: Supple Cardiovascular: Yes: S1, S2 Respiratory: Yes: On Nasal O2 Gastrointestinal: Yes: Soft Genitourinary: Yes: WNL Musculoskeletal: Yes: WNL Edema: No Neurological: Yes: Oriented Labs: CBC, BMP 05/07/17 05:30 05/07/17 05:30 INR, PTT INR 1.07 (0.82-1.09) 04/29/17 14:40 Problem List - Problems (1) Multiple myeloma Code(s): C90.00 - MULTIPLE MYELOMA NOT HAVING ACHIEVED REMISSION (2) Pneumonia Code(s): J18.9 - PNEUMONIA, UNSPECIFIED ORGANISM Assessment/Plan Current Medications Generic Name Dose Route Start Last Admin Trade Name Freq PRN Reason Stop Dose Admin Acetaminophen 650 mg 04/29/17 22:30 05/01/17 18:00 Tylenol - PO 650 mg Q6H PRN Administration TEMP >101* Albuterol Sulfate 1 amp 04/29/17 22:40 Ventolin 0.083% Nebulizer Soln - NEB Q6H PRN SHORT OF BREATH/WHEEZING Enoxaparin Sodium 30 mg 05/04/17 10:00 05/08/17 11:27 Lovenox - SQ Not Given DAILY [facility] Polyethylene Glycol 17 gm 05/03/17 12:23 05/07/17 09:32 Miralax (For Daily Use) - PO 17 grams BID PRN Administration CONSTIPATION Sodium Chloride 3 ml 05/03/17 15:49 Normal Saline For Inhalation - IH Q6H PRN nasal stuffiness Impression 1. PNA 2. sepsis 3. anemia 4. CKD 5. multiple myeloma 6. malnutrition 7. proteinuria 8. 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
--- NOTE | 2017-05-08 15:17 | PN ---
Progress Note (short form) - Note Progress Note: sleeping comfortably had a rough night, her roommate kept her up all night bp a bit lower then usual remains tachycardic tmax 99.8 Vital Signs Period Temp Pulse Resp BP Sys/Saucedo Pulse Ox Last 24 Hr 97.3 F-116 F 97-116 18-18 80-95/50-62 92-92 cor-rrr lungs decreased bs at bases abd soft,nt ext no edema CBC, BMP 05/07/17 05:30 05/07/17 05:30 Microbiology 04/29/17 20:55 Blood - Peripheral Venous Blood Culture - Final NO GROWTH AFTER 5 DAYS INCUBATION 04/29/17 21:00 Blood - Peripheral Venous Blood Culture - Final NO GROWTH AFTER 5 DAYS INCUBATION 04/29/17 13:10 Blood - Peripheral Venous Blood Culture - Final NO GROWTH AFTER 5 DAYS INCUBATION 04/29/17 13:05 Blood - Peripheral Venous Blood Culture - Final NO GROWTH AFTER 5 DAYS INCUBATION 04/30/17 20:00 Throat Throat Culture - Final NO BETA HEMOLYTIC STREPTOCOCCI ISOLATED 04/30/17 20:00 Throat Group A Strep Rapid Antigen - Final 04/30/17 10:10 Urine - Urine Clean Catch Urine Culture - Final 04/30/17 18:10 Urine - Urine Clean Catch Legionella Antigen - Final 04/30/17 18:10 Urine - Urine Clean Catch Streptococcus pneumoniae Antigen ( M - Final a/p pneumonia s/p cefepime/zithromax will repeat blood cultures for lowgrade temp cxray ?rml infiltrate vrsus atelectasis pulmonary consult chest ct- family is agreeable multiple myeloma s/p chemotherapy aj/ckd overall prognosis is poor d/w Dr Dinh, d/w family Problem List - Problems (1) Pneumonia Code(s): J18.9 - PNEUMONIA, UNSPECIFIED ORGANISM (2) Multiple myeloma Code(s): C90.00 - MULTIPLE MYELOMA NOT HAVING ACHIEVED REMISSION Qualifiers:
--- NOTE | 2017-05-08 22:18 | PN ---
Progress Note (short form) - Note Progress Note: Patient seen and examined Feels well. +cough Last Vital Signs Temp Pulse Resp BP Pulse Ox 97.7 F 106 H 20 97/58 97 05/08/17 22:17 05/08/17 22:17 05/08/17 22:17 05/08/17 22:17 05/08/17 21:00 Cor: RSR, No murmurs, No gallops Lungs: Clear to P&A Abd: Soft, Normal bowel sounds, No organomegaly Ext:No significant edema Active Medications Generic Name Dose Route Start Last Admin Trade Name Freq PRN Reason Stop Dose Admin Acetaminophen 650 mg 04/29/17 22:30 05/01/17 18:00 Tylenol - PO 650 mg Q6H PRN Administration TEMP >101* Albuterol Sulfate 1 amp 04/29/17 22:40 Ventolin 0.083% Nebulizer Soln - NEB Q6H PRN SHORT OF BREATH/WHEEZING Enoxaparin Sodium 30 mg 05/04/17 10:00 05/08/17 11:27 Lovenox - SQ Not Given DAILY TOMÁS Polyethylene Glycol 17 gm 05/03/17 12:23 05/07/17 09:32 Miralax (For Daily Use) - PO 17 grams BID PRN Administration CONSTIPATION Sodium Chloride 3 ml 05/03/17 15:49 Normal Saline For Inhalation - IH Q6H PRN nasal stuffiness A/P 81 y/o patient with myeloma, on carfilzomib/cytoxan/dex came in with hypotension /fevers RUL infiltrate s/p cefepine still with cough discussed with ID for cultures/CT chest will need home oxygen
[2017-05-09] MEDS: ENOXAPARIN NA (PORCINE) 30 MG/0.3 ML DISP.SYRIN SQ SCH (10:27)
--- NOTE | 2017-05-09 10:49 | CONSULT ---
Consultation: REQUESTING PROVIDER: CONSULT REQUEST: We have been asked to medically evaluate this patient for PNA/ atelectasis. HISTORY OF PRESENT ILLNESS: 81F w/ hx of multiple myeloma w/ spinal cord compression s/p XRT to spine, COPD , MS, HLD, diverticulosis, and osteoarthritis who presented to the hospital with tachycardia, dehydration, and fever. Pt had a recent progression of her multiple myeloma, was started on triplet chemotherapy with kyprolis, and most recently received it on 04/24 and 04/25. This led to dehydration requiring her to require fluids on 04/27. Following that, pt developed weakness, lethargy, tachycardia, and fever prompting her to call Dr. Del Angel who instructed her to go to the ED. Pt was admitted for a RUL PNA and finished a course of cefepime and azithromycin. A repeat CXR on 05/08 showed possible new right medial base infiltrate. Per pt this am, she denies fevers, chills, SOB, cough, and wheezing. She has no new complaints. REVIEW OF SYSTEMS: CONSTITUTIONAL: Absent: fever, chills, diaphoresis, malaise, loss of appetite, weight change present: generalized weakness HEENT: Absent: rhinorrhea, nasal congestion, throat pain, throat swelling, difficulty swallowing, mouth swelling, ear pain, eye pain, visual changes CARDIOVASCULAR: Absent: chest pain, syncope, palpitations, irregular heart rate, lightheadedness , peripheral edema RESPIRATORY: Absent: cough, shortness of breath, dyspnea with exertion, orthopnea, wheezing, stridor, hemoptysis GASTROINTESTINAL: Absent: abdominal pain, abdominal distension, nausea, vomiting, diarrhea, constipation, melena, hematochezia GENITOURINARY: Absent: dysuria, frequency, urgency, hesitancy, hematuria, flank pain, genital pain MUSCULOSKELETAL: Absent: myalgia, arthralgia, joint swelling, neck pain present: back pain SKIN: Absent: rash, itching, pallor HEMATOLOGIC/IMMUNOLOGIC: Absent: easy bleeding, easy bruising, lymphadenopathy, frequent infections ENDOCRINE: Absent: unexplained weight gain, unexplained weight loss, heat intolerance, cold intolerance NEUROLOGIC: Absent: headache, focal weakness or paresthesias, dizziness, unsteady gait, seizure, mental status changes, bladder or bowel incontinence PSYCHIATRIC: Absent: anxiety, depression, suicidal or homicidal ideation, hallucinations. PHYSICAL EXAMINATION Vital Signs - 24 hr 05/08/17 05/08/17 05/08/17 13:36 15:42 18:02 Temperature 116 F H 97.3 F L 98.0 F Pulse Rate 116 H 115 H 103 H Respiratory 18 20 18 Rate Blood Pressure 95/60 93/54 102/58 O2 Sat by Pulse Oximetry (%) 05/08/17 05/08/17 05/09/17 21:00 22:17 06:00 Temperature 97.7 F 97.6 F Pulse Rate 106 H 92 H Respiratory 20 20 20 Rate Blood Pressure 97/58 O2 Sat by Pulse 97 Oximetry (%) 05/09/17 06:23 Temperature Pulse Rate 99 H Respiratory 20 Rate Blood Pressure 91/53 O2 Sat by Pulse Oximetry (%) GENERAL: elderly female, awake, alert, AAOx2 (name and place), in no acute distress. HEAD: Normal with no signs of trauma. EYES: Pupils equal, round and reactive to light, extraocular movements intact, sclera anicteric, conjunctiva clear. No lid lag. EARS, NOSE, THROAT: Ears normal, nares patent, oropharynx clear without exudates. Moist mucous membranes. NECK: Normal range of motion, supple without lymphadenopathy, JVD, or masses. LUNGS: Breath sounds equal, clear to auscultation bilaterally. No wheezes, and no crackles. No accessory muscle use. HEART: Regular rate and rhythm, normal S1 and S2 without murmur, rub or gallop. ABDOMEN: Soft, nontender, not distended, normoactive bowel sounds, no guarding, no rebound, no masses. No hepatomegaly or splenomegaly. MUSCULOSKELETAL: trace b/l LE edema PSYCHIATRIC: Cooperative. Good eye contact. Appropriate mood and affect. SKIN: Warm, dry, normal turgor, no rashes or lesions noted. Active Medications Generic Name Dose Route Start Last Admin Trade Name Freq PRN Reason Stop Dose Admin Acetaminophen 650 mg 04/29/17 22:30 05/01/17 18:00 Tylenol - PO 650 mg Q6H PRN Administration TEMP >101* Albuterol Sulfate 1 amp 04/29/17 22:40 Ventolin 0.083% Nebulizer Soln - NEB Q6H PRN SHORT OF BREATH/WHEEZING Enoxaparin Sodium 30 mg 05/04/17 10:00 12/12/17 10:27 Lovenox - SQ Not Given DAILY TOM[facility]S Polyethylene Glycol 17 gm 05/03/17 12:23 05/07/17 09:32 Miralax (For Daily Use) - PO 17 grams BID PRN Administration CONSTIPATION Sodium Chloride 3 ml 05/03/17 15:49 Normal Saline For Inhalation - IH Q6H PRN nasal stuffiness CT chest (05/08): extensive chronic interstitial lung disease ASSESSMENT/PLAN: 81F w/ hx of multiple myeloma w/ spinal cord compression s/p XRT to spine, COPD , MS, HLD, diverticulosis, and osteoarthritis who presented to the hospital with tachycardia, dehydration, and fever, was found to have RUL PNA, is s/p course of cefepime and azithromycin. #new CXR with possible right medial base infiltrate -unlikely PNA as no fever or complaints of fevers, chills, SOB, or cough and CT chest shows no definite infiltrates -continue ventolin nebs PRN -incentive spirometry -repeat CXR if pt spikes another fever Rest of care per medical team. Plan discussed with attending, Dr. Garg. Dispo: We will continue to follow the patient. Thank you for this consultative opportunity. -Oscar Swain MD PGY1 Pulmonology Team Visit type - Emergency Visit Emergency Visit: Yes ED Registration Date: 04/30/17 Care time: The patient presented to the Emergency Department on the above date and was hospitalized for further evaluation of their emergent condition. - New Patient This patient is new to me today: Yes Date on this admission: 05/09/17 - Critical Care Critical Care patient: No
--- NOTE | 2017-05-09 11:42 | PN ---
Progress Note (short form) - Note Progress Note: CC: tachy History of Present Illness: ambulating today. family endorses fatigue and poor po intake. no orthostatic symptoms. no sob, no cp, no palpitations, no dizzy Hr trending down but still remains tachycardic. 05/[address] findings noted. has been declining daily lovenox. Current Medications Acetaminophen (Tylenol -) 650 mg PO Q6H PRN PRN Reason: TEMP >101* Last Admin: 05/01/17 18:00 Dose: 650 mg Albuterol Sulfate (Ventolin 0.083% Nebulizer Soln -) 1 amp NEB Q6H PRN PRN Reason: SHORT OF BREATH/WHEEZING Enoxaparin Sodium (Lovenox -) 30 mg SQ DAILY TOMÁS Last Admin: 05/09/17 10:27 Dose: Not Given Polyethylene Glycol (Miralax (For Daily Use) -) 17 gm PO BID PRN PRN Reason: CONSTIPATION Last Admin: 05/07/17 09:32 Dose: 17 grams Sodium Chloride (Normal Saline For Inhalation -) 3 ml IH Q6H PRN PRN Reason: nasal stuffiness - Objective Vital Signs: Vital Signs - 24 hr 05/08/17 05/08/17 05/08/17 13:36 15:42 18:02 Temperature 116 F H 97.3 F L 98.0 F Pulse Rate 116 H 115 H 103 H Respiratory 18 20 18 Rate Blood Pressure 95/60 93/54 102/58 O2 Sat by Pulse Oximetry (%) 05/08/17 05/08/17 05/09/17 21:00 22:17 06:00 Temperature 97.7 F 97.6 F Pulse Rate 106 H 92 H Respiratory 20 20 20 Rate Blood Pressure 97/58 O2 Sat by Pulse 97 Oximetry (%) 05/09/17 06:23 Temperature Pulse Rate 99 H Respiratory 20 Rate Blood Pressure 91/53 O2 Sat by Pulse Oximetry (%) Intake & Output 05/07/17 05/08/17 05/09/17 05/10/17 07:59 07:59 07:59 07:59 Intake Total 200 100 370 Output Total 200 Balance 0 100 370 Constitutional: Yes: Well Nourished, No Distress, Calm Cardiovascular: Yes: Regular Rate and Rhythm, S1, S2. No: Gallop, Murmur Respiratory: Yes: Regular, CTA Bilaterally. No: Accessory Muscle Use, Rales, Wheezes + bs soft nt nd Extremities: No: Cold Edema: No Neurological: Yes: Alert, Oriented. No: Seizure Psychiatric: No: Agitated no diaphoresis jaundice Labs: no CBC, BMP echo 02/2017: nl lv/rv, mild mr/tr, nl rvsp cxr: no chf, +RUL pna chest CT 05/08/2017: extensive chronic interstitial lung disease. small lt pleural effusion. ecg 04/29/17: st, pacs, nl intervals, no ischemic changes a/p: 81 f hx MM, hld, sent to er for ivfs. sinus tachy, pacs: -no signs of arrhythmia, just sinus tachy with pacs likely due to infection/ fever -recent tsh wnl -05/09: discussed with pmd/heme/pulm. HR trend improving with tx of infection, but remains tachycardic. May be 2/2 poor po intake/volume depletion. Will get orthostatic vitals. If negative, consider LE u/s to rule out dvt. Would like to avoid contrast since high risk for aj.. pna: -s/p abx. follow up chest ct without infiltrates. hld: -running low off of anti-hypertensives. MM: -on chemo per heme/onc
--- NOTE | 2017-05-09 14:42 | PN ---
Progress Note (short form) - Note Progress Note: afebrile, oob to chair ambulated with PT today Vital Signs Period Temp Pulse Resp BP Sys/Saucedo Pulse Ox Last 24 Hr 97.3 F-98.1 F 92-115 18-20 90-107/52-58 97-97 cor rrr lungs bibasilar crackles abd soft,nt ext no edema CBC, BMP 05/07/17 05:30 05/07/17 05:30 Microbiology 04/29/17 20:55 Blood - Peripheral Venous Blood Culture - Final NO GROWTH AFTER 5 DAYS INCUBATION 04/29/17 21:00 Blood - Peripheral Venous Blood Culture - Final NO GROWTH AFTER 5 DAYS INCUBATION 04/29/17 13:10 Blood - Peripheral Venous Blood Culture - Final NO GROWTH AFTER 5 DAYS INCUBATION 04/29/17 13:05 Blood - Peripheral Venous Blood Culture - Final NO GROWTH AFTER 5 DAYS INCUBATION 04/30/17 20:00 Throat Throat Culture - Final NO BETA HEMOLYTIC STREPTOCOCCI ISOLATED 04/30/17 20:00 Throat Group A Strep Rapid Antigen - Final 04/30/17 10:10 Urine - Urine Clean Catch Urine Culture - Final 04/30/17 18:10 Urine - Urine Clean Catch Legionella Antigen - Final 04/30/17 18:10 Urine - Urine Clean Catch Streptococcus pneumoniae Antigen ( M - Final Current Medications Acetaminophen (Tylenol -) 650 mg PO Q6H PRN PRN Reason: TEMP >101* Last Admin: 05/01/17 18:00 Dose: 650 mg Albuterol Sulfate (Ventolin 0.083% Nebulizer Soln -) 1 amp NEB Q6H PRN PRN Reason: SHORT OF BREATH/WHEEZING Enoxaparin Sodium (Lovenox -) 30 mg SQ DAILY TOMÁS Last Admin: 05/09/17 10:27 Dose: Not Given Polyethylene Glycol (Miralax (For Daily Use) -) 17 gm PO BID PRN PRN Reason: CONSTIPATION Last Admin: 05/07/17 09:32 Dose: 17 grams Sodium Chloride (Normal Saline For Inhalation -) 3 ml IH Q6H PRN PRN Reason: nasal stuffiness a/p pneumonia s/p cefepime/zithromax will repeat blood cultures for lowgrade temp cxray ?rml infiltrate vrsus atelectasis pulmonary consult chest ct- ILD? multiple myeloma s/p chemotherapy aj/ckd overall prognosis is poor afebrile, would observe off antibiotics Problem List - Problems (1) Pneumonia Code(s): J18.9 - PNEUMONIA, UNSPECIFIED ORGANISM (2) Multiple myeloma Code(s): C90.00 - MULTIPLE MYELOMA NOT HAVING ACHIEVED REMISSION Qualifiers:
--- NOTE | 2017-05-09 14:58 | PN ---
Progress Note, Physician Chief Complaint: Ms Fuentes says she feels ok. Denies cp, sob, n/v. - Current Medication List Current Medications: Active Medications Acetaminophen (Tylenol -) 650 mg PO Q6H PRN PRN Reason: TEMP >101* Last Admin: 05/01/17 18:00 Dose: 650 mg Albuterol Sulfate (Ventolin 0.083% Nebulizer Soln -) 1 amp NEB Q6H PRN PRN Reason: SHORT OF BREATH/WHEEZING Enoxaparin Sodium (Lovenox -) 30 mg SQ DAILY TOMÁS Last Admin: 05/09/17 10:27 Dose: Not Given Polyethylene Glycol (Miralax (For Daily Use) -) 17 gm PO BID PRN PRN Reason: CONSTIPATION Last Admin: 05/07/17 09:32 Dose: 17 grams Sodium Chloride (Normal Saline For Inhalation -) 3 ml IH Q6H PRN PRN Reason: nasal stuffiness - Objective Vital Signs: Vital Signs Temperature 36.7 C 05/09/17 14:05 Pulse Rate 114 H 05/09/17 14:05 Respiratory Rate 20 05/09/17 14:05 Blood Pressure 90/56 05/09/17 14:05 O2 Sat by Pulse Oximetry (%) 97 05/09/17 09:00 Constitutional: Yes: Well Nourished, No Distress, Calm Cardiovascular: Yes: Tachycardia. No: Pulse Irregular, Gallop, Murmur, Rub Respiratory: Yes: Regular, On Nasal O2, Rhonchi. No: Rales, Wheezes Gastrointestinal: Yes: Normal Bowel Sounds, Soft. No: Distention, Tenderness Extremities: Yes: WNL Edema: No Labs: CBC, BMP 05/07/17 05:30 05/07/17 05:30 INR, PTT INR 1.07 (0.82-1.09) 04/29/17 14:40 Assessment/Plan 1. Pneumonia -appreciate ID assistance -finished full course of antibiotics -observing off of antibiotics per ID 2. Sepsis -resolved 3. Anemia -secondary to multiple myeloma and treatment -expect some dilutional affect as well -hematology following 4. CKD -Dr Soto following -creatinine stable 5. Multiple myeloma -hematology/oncology following 6. Hypophosphatemia/magnesemia -replaced 7. Acute on chronic respiratory failure -CT scan showing atelectasis -continue oxygen support -pulmonary consulted
--- NOTE | 2017-05-09 15:40 | PN ---
Teaching Attending Note Name of Resident: Oscar Swain ATTENDING PHYSICIAN STATEMENT I saw and evaluated the patient. I reviewed the resident's note and discussed the case with the resident. I agree with the resident's findings and plan as documented. SUBJECTIVE: Pt seen and examined with the resident. Briefly, 81yo female with h/o multiple myeloma with spinal cord compression s/p recent RT on chemotherapy, h/o COPD, hyperlipidemia, MS who was admitted with fever, generalized weakness. Found to have pneumonia, treated with course of cefepime and azithromycin with improvement. Had episode of hypoxia and shortness of breath, CXR showing possible RML infiltrate. CT chest was performed which did not show any acute changes, appears similar in appearance to CT chest in 2014. OBJECTIVE: Last Vital Signs Temp Pulse Resp BP Pulse Ox 98.1 F 114 H 20 90/56 97 05/09/17 15:10 05/09/17 15:10 05/09/17 15:10 05/09/17 15:10 05/09/17 09:00 Intake & Output 05/06/17 05/07/17 05/08/17 05/09/17 23:59 23:59 23:59 23:59 Intake Total 200 100 370 200 Output Total 200 Balance 0 100 370 200 Gen: NAD in chair Heart: tachycardic, regular Lung: basilar rales bilaterally Abd: soft, nontender Ext: no edema, no clubbing CBC, BMP 05/07/17 05:30 05/07/17 05:30 Active Medications Acetaminophen (Tylenol -) 650 mg PO Q6H PRN PRN Reason: TEMP >101* Last Admin: 05/01/17 18:00 Dose: 650 mg Albuterol Sulfate (Ventolin 0.083% Nebulizer Soln -) 1 amp NEB Q6H PRN PRN Reason: SHORT OF BREATH/WHEEZING Enoxaparin Sodium (Lovenox -) 30 mg SQ DAILY TOMÁS Last Admin: 05/09/17 10:27 Dose: Not Given Polyethylene Glycol (Miralax (For Daily Use) -) 17 gm PO BID PRN PRN Reason: CONSTIPATION Last Admin: 05/07/17 09:32 Dose: 17 grams Sodium Chloride (Normal Saline For Inhalation -) 3 ml IH Q6H PRN PRN Reason: nasal stuffiness ASSESSMENT AND PLAN: Multiple Myeloma s/p RT on chemo Pneumonia treated COPD Hyperlipidemia - no change in CT chest compared to 2014, would observe off antibiotics - O2 to keep SpO2 >90% - check ambulatory SpO2 on room air to assess for home O2 - inhaled bronchodilators as needed - DVT prophylaxis Thank you for this consult Ranjit Garg MD
--- NOTE | 2017-05-09 16:51 | PN ---
Progress Note (short form) - Note Progress Note: Patient seen and examined OOB to chair assesses by RT O/E No thrush Diminished breath sounds with poor inspiratory effort Cor: RSR Abdomen soft Ext- no significant edema Last Vital Signs Temp Pulse Resp BP Pulse Ox 98.1 F 112 H 20 90/56 94 L 05/09/17 15:10 05/09/17 16:12 05/09/17 15:10 05/09/17 15:10 05/09/17 16:12 CBC, BMP 05/07/17 05:30 05/07/17 05:30 Current Medications Generic Name Dose Route Start Last Admin Trade Name Freq PRN Reason Stop Dose Admin Acetaminophen 650 mg 04/29/17 22:30 05/01/17 18:00 Tylenol - PO 650 mg Q6H PRN Administration TEMP >101* Albuterol Sulfate 1 amp 04/29/17 22:40 Ventolin 0.083% Nebulizer Soln - NEB Q6H PRN SHORT OF BREATH/WHEEZING Enoxaparin Sodium 30 mg 05/04/17 10:00 05/09/17 10:27 Lovenox - SQ Not Given DAILY TOM[facility]S Polyethylene Glycol 17 gm 05/03/17 12:23 05/07/17 09:32 Miralax (For Daily Use) - PO 17 grams BID PRN Administration CONSTIPATION Sodium Chloride 3 ml 05/03/17 15:49 Normal Saline For Inhalation - IH Q6H PRN nasal stuffiness Assessment/Plan: Pneumonia s/p ceftriaxone/azithro Myeloma - not in remission s/p chemotherpy SHANIA improving. Plan: off abx pulm/id/cards consults appreciated home o2 request sent in. will likely dc in the am once home 02 is set up. for miralax labs for the morning d/w daughter efraín in detail.
[2017-05-09] MEDS: POLYETHYLENE GLYCOL 3350 119 GM BTL PO PRN (17:06)
--- NOTE | 2017-05-09 18:08 | PN ---
Progress Note, Physician History of Present Illness: Pt seen and examined at bedside. She is out of bed to chair. - Current Medication List Current Medications: Active Medications Acetaminophen (Tylenol -) 650 mg PO Q6H PRN PRN Reason: TEMP >101* Last Admin: 05/01/17 18:00 Dose: 650 mg Albuterol Sulfate (Ventolin 0.083% Nebulizer Soln -) 1 amp NEB Q6H PRN PRN Reason: SHORT OF BREATH/WHEEZING Enoxaparin Sodium (Lovenox -) 30 mg SQ DAILY TOMÁS Last Admin: 05/09/17 10:27 Dose: Not Given Polyethylene Glycol (Miralax (For Daily Use) -) 17 gm PO BID PRN PRN Reason: CONSTIPATION Last Admin: 05/09/17 17:06 Dose: 17 grams Sodium Chloride (Normal Saline For Inhalation -) 3 ml IH Q6H PRN PRN Reason: nasal stuffiness - Objective Vital Signs: Vital Signs Temperature 98.1 F 05/09/17 15:10 Pulse Rate 112 H 05/09/17 16:12 Respiratory Rate 20 05/09/17 15:10 Blood Pressure 90/56 05/09/17 15:10 O2 Sat by Pulse Oximetry (%) 94 L 05/09/17 16:12 Constitutional: Yes: Calm Eyes: Yes: Conjunctiva Clear HENT: Yes: Atraumatic Neck: Yes: Supple Cardiovascular: Yes: S1, S2 Respiratory: Yes: On Nasal O2 Gastrointestinal: Yes: Soft Genitourinary: Yes: WNL Musculoskeletal: Yes: WNL Edema: No Neurological: Yes: Oriented Psychiatric: Yes: Oriented Labs: CBC, BMP 05/07/17 05:30 05/07/17 05:30 INR, PTT INR 1.07 (0.82-1.09) 04/29/17 14:40 - ....Imaging Cat Scan: Report Reviewed Problem List - Problems (1) Multiple myeloma Code(s): C90.00 - MULTIPLE MYELOMA NOT HAVING ACHIEVED REMISSION (2) Pneumonia Code(s): J18.9 - PNEUMONIA, UNSPECIFIED ORGANISM Assessment/Plan Current Medications Generic Name Dose Route Start Last Admin Trade Name Freq PRN Reason Stop Dose Admin Acetaminophen 650 mg 04/29/17 22:30 05/01/17 18:00 Tylenol - PO 650 mg Q6H PRN Administration TEMP >101* Albuterol Sulfate 1 amp 04/29/17 22:40 Ventolin 0.083% Nebulizer Soln - NEB Q6H PRN SHORT OF BREATH/WHEEZING Enoxaparin Sodium 30 mg 05/04/17 10:00 05/09/17 10:27 Lovenox - SQ Not Given DAILY TOM[facility]S Polyethylene Glycol 17 gm 05/03/17 12:23 05/09/17 17:06 Miralax (For Daily Use) - PO 17 grams BID PRN Administration CONSTIPATION Sodium Chloride 3 ml 05/03/17 15:49 Normal Saline For Inhalation - IH Q6H PRN nasal stuffiness Impression 1. PNA 2. sepsis 3. anemia 4. CKD 5. multiple myeloma 6. malnutrition 7. proteinuria 8. possible hepatocellular disease seen on ultrasound 9. interstitial lung disease Plan - check bmp - ct reviewed, with interstitial lung disease - cont current meds - pulm follow up - encourage PO intake - encourage incentive spirometer Dr oSto
[2017-05-10 00:06] LABS: A/G RATIO 0.9 (0.7-1.7); ALBUMIN 2.5 g/dL (2.9-4.4); ALPHA-1-GLOBULIN 0.4 g/dL (0.0-0.4); BETA GLOBULIN 0.7 g/dL (0.7-1.3); GAMMA GLOBULIN 1.1 g/dL (0.4-1.8); M-SPIKE 0.9 g/dL (Not Observed); TOTAL PROTEIN 5.5 g/dL (6.0-8.5)
[2017-05-10 07:55] LABS: MCH 30.3 pg (25.7-33.7); MCHC 33.3 g/dl (32.0-36.0); MEAN CELL VOLUME 91.1 fl (80-96); MEAN PLT VOLUME 7.2 fl (7.5-11.1); PLATELET COUNT 218 K/MM3 (134-434); RDW 15.1 % (11.6-15.6); WHITE BLOOD COUNT 7.6 K/mm3 (4.0-10.0)
[2017-05-10 08:26] LABS: ALBUMIN 2.5 g/dl (3.4-5.0); ANION GAP 10 (8-16); CALCIUM 8.4 mg/dL (8.5-10.1); CO2 26 mmol/L (21-32); CREATININE 1.2 mg/dL (0.55-1.02); GLUCOSE,RANDOM 81 mg/dL (74-106); MAGNESIUM 2.1 mg/dL (1.8-2.4); PHOSPHOROUS 2.4 mg/dL (2.5-4.9); SGOT/AST 38 U/L (15-37); SGPT/ALT 16 U/L (12-78); TOT PROT 5.9 g/dl (6.4-8.2)
[2017-05-10 08:29] LABS: ALK PHOS 68 U/L (45-117); BILIRUBIN,TOTAL 0.4 mg/dL (0.2-1.0)
[2017-05-10] MEDS: ENOXAPARIN NA (PORCINE) 30 MG/0.3 ML DISP.SYRIN SQ SCH (09:12)
[2017-05-10] MEDS ORDERED: POTASSIUM PHOSPHATE 15 MM in SODIUM CHLORIDE 250 ML IVPB ONE (10:02)
[2017-05-10 10:27] LABS: ANISOCYTOSIS 3+; BAND % 8.6 %; HYPOCHROMIA 0; MACROCYTOSIS 0; METAMYELOCYTE 0 % (0-2); MICROCYTOSIS 3+; MYELOCYTE 3 % (0-2); POIKILOCYTOSIS 0; POLYCHROMASIA 0; REACTIVE LYMPHOCYTES 14 % (0-80)
[2017-05-10 10:38] LABS: TOTAL CELLS COUNTED 100
[2017-05-10 10:39] LABS: PLATELET ESTIMATE DECREASED
--- NOTE | 2017-05-10 12:24 | PN ---
Progress Note (short form) - Note Progress Note: Patient seen and examined OOB to chair feeling OK. had BM. denies other complains O/E No thrush Diminished breath sounds with poor inspiratory effort Cor: RSR Abdomen soft Ext- no significant edema Last Vital Signs Temp Pulse Resp BP Pulse Ox 97.0 F L 120 H 20 91/59 95 05/10/17 10:00 05/10/17 10:00 05/10/17 10:00 05/10/17 10:00 05/10/17 10:00 CBC, BMP 05/10/17 06:00 05/10/17 06:00 Current Medications Generic Name Dose Route Start Last Admin Trade Name Freq PRN Reason Stop Dose Admin Acetaminophen 650 mg 04/29/17 22:30 05/01/17 18:00 Tylenol - PO 650 mg Q6H PRN Administration TEMP >101* Albuterol Sulfate 1 amp 04/29/17 22:40 Ventolin 0.083% Nebulizer Soln - NEB Q6H PRN SHORT OF BREATH/WHEEZING Enoxaparin Sodium 30 mg 05/04/17 10:00 05/10/17 09:12 Lovenox - SQ Not Given DAILY TOMÁS Potassium Phosphate 15 mm/ 255 mls @ 62.5 mls/hr 05/10/17 10:02 Sodium Chloride IVPB 05/10/17 14:06 ONCE ONE Polyethylene Glycol 17 gm 05/03/17 12:23 05/09/17 17:06 Miralax (For Daily Use) - PO 17 grams BID PRN Administration CONSTIPATION Sodium Chloride 3 ml 05/03/17 15:49 Normal Saline For Inhalation - IH Q6H PRN nasal stuffiness Assessment/Plan: Pneumonia s/p ceftriaxone/azithro Myeloma - not in remission s/p chemotherpy SHANIA improving. Plan: off abx pulm/id/cards consults appreciated home o2 set up done labs stable dvt study negative. d/w daughter efraín in detail at bedside will follow-up in office.
--- NOTE | 2017-05-10 12:36 | PN ---
Progress Note, Physician Chief Complaint: Ms Fuentes says she feels ok. Denies cp, sob, n/v. - Current Medication List Current Medications: Active Medications Acetaminophen (Tylenol -) 650 mg PO Q6H PRN PRN Reason: TEMP >101* Last Admin: 05/01/17 18:00 Dose: 650 mg Albuterol Sulfate (Ventolin 0.083% Nebulizer Soln -) 1 amp NEB Q6H PRN PRN Reason: SHORT OF BREATH/WHEEZING Enoxaparin Sodium (Lovenox -) 30 mg SQ DAILY TOMÁS Last Admin: 05/10/17 09:12 Dose: Not Given Potassium Phosphate 15 mm/ (Sodium Chloride) 255 mls @ 62.5 mls/hr IVPB ONCE ONE Stop: 05/10/17 14:06 Polyethylene Glycol (Miralax (For Daily Use) -) 17 gm PO BID PRN PRN Reason: CONSTIPATION Last Admin: 05/09/17 17:06 Dose: 17 grams Sodium Chloride (Normal Saline For Inhalation -) 3 ml IH Q6H PRN PRN Reason: nasal stuffiness - Objective Vital Signs: Vital Signs Temperature 36.1 C L 05/10/17 10:00 Pulse Rate 120 H 05/10/17 10:00 Respiratory Rate 20 05/10/17 10:00 Blood Pressure 91/59 05/10/17 10:00 O2 Sat by Pulse Oximetry (%) 95 05/10/17 10:00 Constitutional: Yes: Well Nourished, No Distress, Calm Cardiovascular: Yes: Regular Rate and Rhythm. No: Gallop, Murmur, Rub Respiratory: Yes: Regular, CTA Bilaterally, On Nasal O2. No: Rales, Rhonchi, Wheezes Gastrointestinal: Yes: Normal Bowel Sounds, Soft. No: Distention, Tenderness Extremities: Yes: WNL Edema: No Labs: CBC, BMP 05/10/17 06:00 05/10/17 06:00 INR, PTT INR 1.07 (0.82-1.09) 04/29/17 14:40 Assessment/Plan 1. Pneumonia -appreciate ID assistance -finished full course of antibiotics -observing off of antibiotics per ID 2. Sepsis -resolved 3. Anemia -stable 4. CKD -Dr Soto following -creatinine stable 5. Multiple myeloma -hematology/oncology following 6. Hypophosphatemia/magnesemia -replaced 7. Acute on chronic respiratory failure -home oxygen Dispo -safe from medical standpoint for discharge
--- NOTE | 2017-05-10 13:17 | PN ---
Progress Note, Physician History of Present Illness: Pt seen and examined at bedside. She is awake and appears comfortable. - Current Medication List Current Medications: Active Medications Acetaminophen (Tylenol -) 650 mg PO Q6H PRN PRN Reason: TEMP >101* Last Admin: 05/01/17 18:00 Dose: 650 mg Albuterol Sulfate (Ventolin 0.083% Nebulizer Soln -) 1 amp NEB Q6H PRN PRN Reason: SHORT OF BREATH/WHEEZING Enoxaparin Sodium (Lovenox -) 30 mg SQ DAILY TOMÁS Last Admin: 05/10/17 09:12 Dose: Not Given Potassium Phosphate 15 mm/ (Sodium Chloride) 255 mls @ 62.5 mls/hr IVPB ONCE ONE Stop: 05/10/17 14:06 Polyethylene Glycol (Miralax (For Daily Use) -) 17 gm PO BID PRN PRN Reason: CONSTIPATION Last Admin: 05/09/17 17:06 Dose: 17 grams Sodium Chloride (Normal Saline For Inhalation -) 3 ml IH Q6H PRN PRN Reason: nasal stuffiness - Objective Vital Signs: Vital Signs Temperature 97.0 F L 05/10/17 10:00 Pulse Rate 120 H 05/10/17 10:00 Respiratory Rate 20 05/10/17 10:00 Blood Pressure 91/59 05/10/17 10:00 O2 Sat by Pulse Oximetry (%) 95 05/10/17 10:00 Constitutional: Yes: Calm Eyes: Yes: Conjunctiva Clear HENT: Yes: Atraumatic Neck: Yes: Supple Cardiovascular: Yes: S1, S2 Respiratory: Yes: On Nasal O2 Gastrointestinal: Yes: Normal Bowel Sounds, Soft Genitourinary: Yes: WNL Musculoskeletal: Yes: Muscle Weakness Edema: No Neurological: Yes: Oriented Psychiatric: Yes: Oriented Labs: CBC, BMP 05/10/17 06:00 05/10/17 06:00 INR, PTT INR 1.07 (0.82-1.09) 04/29/17 14:40 Problem List - Problems (1) Multiple myeloma Code(s): C90.00 - MULTIPLE MYELOMA NOT HAVING ACHIEVED REMISSION (2) Pneumonia Code(s): J18.9 - PNEUMONIA, UNSPECIFIED ORGANISM Assessment/Plan Current Medications Generic Name Dose Route Start Last Admin Trade Name Freq PRN Reason Stop Dose Admin Acetaminophen 650 mg 04/29/17 22:30 05/01/17 18:00 Tylenol - PO 650 mg Q6H PRN Administration TEMP >101* Albuterol Sulfate 1 amp 04/29/17 22:40 Ventolin 0.083% Nebulizer Soln - NEB Q6H PRN SHORT OF BREATH/WHEEZING Enoxaparin Sodium 30 mg 05/04/17 10:00 05/10/17 09:12 Lovenox - SQ Not Given DAILY TOMÁS Potassium Phosphate 15 mm/ 255 mls @ 62.5 mls/hr 05/10/17 10:02 Sodium Chloride IVPB 05/10/17 14:06 ONCE ONE Polyethylene Glycol 17 gm 05/03/17 12:23 05/09/17 17:06 Miralax (For Daily Use) - PO 17 grams BID PRN Administration CONSTIPATION Sodium Chloride 3 ml 05/03/17 15:49 Normal Saline For Inhalation - IH Q6H PRN nasal stuffiness Impression 1. PNA 2. sepsis 3. anemia 4. CKD 5. multiple myeloma 6. malnutrition 7. proteinuria 8. possible hepatocellular disease seen on ultrasound 9. interstitial lung disease Plan - will replace phos - monitor bmp as outpt - discussed with pt and her daughter - encourage PO intake - encourage incentive spirometer - will follow PRN Dr Soto
[2017-05-10 19:03] VITALS: BP 86/54; PULSE 113; TEMP 98
== END 2017-05-10 19:46 | disposition home health service (06) | DRG 871 ==
LOC: JONCNONCHE 11:28 → J7W 11:28 → JONCNONCHE 04-30 10:49 → J7W 04-30 10:59
PROVIDERS: ADMIT Internal Medicine Hematology & Oncology; ATTEND Internal Medicine
PROC: 02HV33Z Insertion of Infusion Device into Superior Vena Cava, Percutaneous Approach (ICD-10-PCS; principal; 2017-04-29)
PROC: 30233N1 Transfusion of Nonautologous Red Blood Cells into Peripheral Vein, Percutaneous Approach (ICD-10-PCS; 2017-05-01)
DX: A41.9 Sepsis, unspecified organism (principal); J18.9 Pneumonia, unspecified organism; J96.20 Acute and chronic respiratory failure, unspecified whether with hypoxia or hypercapnia; C90.00 Multiple myeloma not having achieved remission; N17.9 Acute kidney failure, unspecified; E46 Unspecified protein-calorie malnutrition; I47.1 Supraventricular tachycardia; J98.11 Atelectasis; D64.9 Anemia, unspecified; N18.9 Chronic kidney disease, unspecified; E83.39 Other disorders of phosphorus metabolism; E83.42 Hypomagnesemia; Z68.25 Body mass index [BMI] 25.0-25.9, adult; E78.5 Hyperlipidemia, unspecified; Z92.21 Personal history of antineoplastic chemotherapy; J44.9 Chronic obstructive pulmonary disease, unspecified; R00.0 Tachycardia, unspecified; M19.90 Unspecified osteoarthritis, unspecified site; E86.0 Dehydration; R80.9 Proteinuria, unspecified; I95.9 Hypotension, unspecified
CPT/HCPCS: 36415; 36430; 71010-TC; 71101-TC; 71250-TC; 76775-TC; 80048; 80053; 81003; 81015; 82436; 82570; 82784; 83615; 83735; 83883; 84100; 84133; 84155; 84165; 84300; 85025; 85610; 85730; 86334; 86850; 86900; 86901; 86922; 87040; 87070; 87086; 87430; 87899; 93005; 93010; 93970-TC; 94761; 97116-GP; 97161-GP; P9038; P9058

== ENCOUNTER 2017-05-18 00:38 | Inpatient (IN) | payer OTHER ==
--- NOTE | 2017-05-18 01:02 | PDOC ---
History of Present Illness - General Chief Complaint: SIRS, Suspected/Possible Stated Complaint: DEHYDRATION Time Seen by Provider: 05/18/17 00:59 - History of Present Illness Initial Comments: 05/18/17 01:07 81F with h/o multiple myeloma with spinal cord compression s/p recent RT on chemotherapy, h/o COPD, hyperlipidemia, chronic altered mental status presenting with fever (101 axilla by daughter), generalized weakness. Last admission with discharge on 05/10 (one week ago) was found to have pneumonia, treated with course of cefepime and azithromycin with improvement. Daughter reports AMS since patient was started on steroids. 05/18/17 01:08 05/18/17 04:30 Past History - Past Medical History Allergies/Adverse Reactions: Allergies Allergy/AdvReac Type Severity Reaction Status Date / Time aspartame Allergy Verified 01/25/17 21:48 Latex, Natural Rubber Allergy Verified 01/12/17 13:47 Penicillins Allergy Verified 01/12/17 13:47 Anemia: Yes Asthma: No Cancer: Yes Cardiac Disorders: No CVA: No COPD: No CHF: No Dementia: No Diabetes: No GI Disorders: No Disorders: No HTN: No Hypercholesterolemia: No Liver Disease: No Seizures: No Thyroid Disease: No - Immunization History Td Vaccination: Yes (2009) Immunization Up to Date: No - Suicide/Smoking/Psychosocial Hx Smoking History: Never smoked Have you smoked in the past 12 months: No Hx Alcohol Use: No Drug/Substance Use Hx: No Substance Use Type: None Hx Substance Use Treatment: No Review of Systems - Review of Systems Able to Perform ROS?: No (AMS) *Physical Exam - Physical Exam General Appearance: Yes: Nourished, Appropriately Dressed, Disheveled, Moderate Distress HEENT: positive: EOMI, SATURNINO, Normal ENT Inspection Neck: negative: Tender Respiratory/Chest: positive: Decreased Breath Sounds. negative: Chest Tender Cardiovascular: positive: Regular Rhythm, Tachycardia Vascular Pulses: Dorsalis-Pedis (R): 2+, Doralis-Pedis (L): 2+ Gastrointestinal/Abdominal: positive: Normal Bowel Sounds, Soft, Protuberent. negative: Tender Integumentary: positive: Warm, Pale. negative: Cyanotic, Erythema Neurologic: positive: Respond to painful stimul, Confused, Disoriented. negative: Fully Oriented ED Treatment Course - LABORATORY CBC & Chemistry Diagram: 05/18/17 01:17 05/18/17 01:17 Medical Decision Making - Medical Decision Making 05/18/17 04:30 81F with h/o multiple myeloma with spinal cord compression s/p recent RT on chemotherapy, h/o COPD, hyperlipidemia, MS presenting with fever (101 axilla by daughter), generalized weakness. Patient febrile (102.8) with neutropenia (3.8), Prerenal : BUN 99; creatinine 5.3 a. Gap: 18 Hyponatremia 124 hyperkalemia: 6.1. Dehydration leading to prerenal kidney failure status leading to electrolyte abnormality +/- chemotherapy treatment? Patient admitted to ICU. Patient hyperkalemia treated with albuterol, calcium gluconate, insulin and D50 Kidney failure and hyponatremia treated with NS. 05/18/17 04:33 EKG repeated: New onset afib. Patient started on Digoxin 0.25. 05/18/17 05:25 Pending ICU bed. *DC/Admit/Observation/Transfer Diagnosis at time of Disposition: Fever and neutropenia, Severe sepsis, Multiple myeloma, Hyponatremia, Hyperkalemia, diminished renal excretion - Discharge Dispostion Admit: Yes - Referrals - Patient Instructions - Post Discharge Activity
[2017-05-18] MEDS ORDERED: ACETAMINOPHEN 1000 MG/100 ML VIAL (NON FORMULARY) IVPB ONE (01:05)
[2017-05-18] MEDS ORDERED: SODIUM CHLORIDE 1,000 ML IV STA ×3 (01:05→12:36)
[2017-05-18] MEDS ORDERED: ACETAMINOPHEN INJECTION 100 ML IVPB ONE (01:09)
[2017-05-18 01:25] LABS: HEMATOCRIT 25.1 % (32.4-45.2); HEMOGLOBIN 8.5 GM/dL (10.7-15.3); MCH 30.3 pg (25.7-33.7); MCHC 33.8 g/dl (32.0-36.0); MEAN CELL VOLUME 89.5 fl (80-96); MEAN PLT VOLUME 7.7 fl (7.5-11.1); PLATELET COUNT 245 K/MM3 (134-434); RDW 15.3 % (11.6-15.6); WHITE BLOOD COUNT 3.3 K/mm3 (4.0-10.0)
[2017-05-18 01:36] LABS: VENOUS PC02 29.9 mmHg (38-52); VENOUS PH 7.4 (7.32-7.42); VENOUS PO2 39.2 mmHg (28-48)
[2017-05-18 01:38] LABS: INR 1.09 (0.82-1.09); PROTHROMBIN TIME (PATIENT) 12.3 SEC (9.98-11.88)
[2017-05-18 01:40] LABS: ACTIVATED PTT 29.3 SECONDS (26.9-34.4)
[2017-05-18 02:05] LABS: URINE APPEARANCE SLCLOUDY; URINE BILIRUBIN NEGATIVE (NEGATIVE); URINE BLOOD NEGATIVE (NEGATIVE); URINE COLOR LTYELLOW; URINE GLUCOSE (UA) NEGATIVE (NEGATIVE); URINE KETONE NEGATIVE (NEGATIVE); URINE LEUK ESTERASE NEGATIVE (NEGATIVE); URINE NITRITE NEGATIVE (NEGATIVE); URINE UROBILINOGEN NEGATIVE mg/dL (0.2-1.0)
--- NOTE | 2017-05-18 02:10 | PDOC ---
Attending Attestation - Resident Resident Name: Bennie Fan - ED Attending Attestation I have performed the following: I have examined & evaluated the patient, The case was reviewed & discussed with the resident, I agree w/resident's findings & plan, Exceptions are as noted - HPI HPI: 05/18/17 03:10 fever and generalized weakness for several days. H/o Multiple myoloma 05/18/17 03:12 - Physicial Exam PE: 05/18/17 03:09 *Physical Exam General Appearance: Yes: Appropriately Dressed. No: Apparent Distress, Intoxicated HEENT: positive: EOMI, SATURNINO, Normal ENT Inspection, Normal Voice, TMs Normal, Pharynx Normal. negative: Pale Conjunctivae, Photophobia, Scleral Icterus (R), Scleral Icterus (L) Neck: positive: Trachea midline, Normal Thyroid, Supple. negative: Tender, Rigid, Carotid bruit, Stridor, Lymphadenopathy (R), Lymphadenopathy (L), Thyromegaly Respiratory/Chest: positive: Lungs Clear, Normal Breath Sounds. negative: Chest Tender, Respiratory Distress, Accessory Muscle Use, Labored Respiration, RES, Crackles, Rales, Rhonchi, Stridor, Wheezing, Dullness Cardiovascular: positive: Regular Rhythm, Regular Rate, S1, S2. negative: Edema , JVD, Murmur, Bradycardia, Tachycardia Vascular Pulses: Dorsalis-Pedis (R): 2+, Doralis-Pedis (L): 2+ Gastrointestinal/Abdominal: positive: Normal Bowel Sounds, Flat, Soft. negative : Tender, Organomegaly, Pulsatile Mass, Increased Bowel Sounds, Decreased BS, Distended, Guarding, Rebound, Hernia, Hepatomegaly, Spleenomegaly Lymphatic: negative: Adenopathy, Tenderness Musculoskeletal: positive: Normal Inspection. negative: CVA Tenderness, Decreased Range of Motion Extremity: positive: Normal Capillary Refill, Normal Inspection, Normal Range of Motion, Pelvis Stable. negative: Tender, Pedal Edema, Swelling, Erythema Integumentary: positive: Normal Color, Dry, Warm. negative: Cyanotic, Erythema , Jaundice, Rash Neurologic: positive: security installer II-XII NML intact, Fully Oriented, Alert, Normal Mood/ Affect, - Medical Decision Making 05/18/17 19:30 Pt admitted to ICU for Sepsis and electrolyte imbalance
[2017-05-18 02:13] LABS: URINE PROTEIN 1+ (NEGATIVE)
[2017-05-18 02:18] LABS: EPI CELLS RARE /HPF (FEW); URINE BACTERIA RARE /hpf (NONE SEEN); URINE MUCUS RARE
[2017-05-18 02:20] LABS: ALBUMIN 2.4 g/dl (3.4-5.0); ANION GAP 18 (8-16); BILIRUBIN,TOTAL 0.5 mg/dL (0.2-1.0); BLOOD UREA NITROGEN 99 mg/dL (7-18); CALCIUM 7.3 mg/dL (8.5-10.1); CHLORIDE 89 mmol/L (98-107); CO2 17 mmol/L (21-32); CREATININE 5.3 mg/dL (0.55-1.02); GLUCOSE,RANDOM 99 mg/dL (74-106); SGPT/ALT 14 U/L (12-78); TOT PROT 6.4 g/dl (6.4-8.2)
[2017-05-18 02:23] LABS: ALK PHOS 64 U/L (45-117)
[2017-05-18 02:24] LABS: SGOT/AST 45 U/L (15-37)
[2017-05-18 02:25] LABS: POTASSIUM 6.1 mmol/L (3.5-5.1); SODIUM 124 mmol/L (136-145)
[2017-05-18] MEDS ORDERED: CALCIUM GLUCONATE 10% - 1,000 MG/10 ML VIAL IVPUSH ONE (03:10)
[2017-05-18] MEDS ORDERED: INSULIN REGULAR HUMAN 100 UNITS/ML *VIAL IVPUSH ONE (03:11)
[2017-05-18] MEDS ORDERED: DEXTROSE 50%-WATER - 25 GM/50 ML VIAL IVPUSH ONE (03:12)
[2017-05-18] MEDS ORDERED: ALBUTEROL SO4 0.083% IH SOL 2.5 MG/3 ML VIAL.NEB. NEB ONE ×2 (03:15→03:32)
[2017-05-18] MEDS ORDERED: DEXTROSE 50%-WATER 25 GM/50 ML DISP.SYRIN ONE (03:17)
[2017-05-18] MEDS ORDERED: CALCIUM GLUCONATE 10% - 1,000 MG/10 ML VIAL ONE (03:17)
[2017-05-18] MEDS ORDERED: VANCOMYCIN IVPB ONE (03:36)
[2017-05-18] MEDS ORDERED: WATER IVPB ONE (03:36)
[2017-05-18] MEDS ORDERED: CEFEPIME HCL 2 GM VIAL (RESTRICTED TO ID) IVPB ONE (03:36)
[2017-05-18] MEDS ORDERED: DEXTROSE 5% IVPB ONE (03:36)
[2017-05-18] MEDS ORDERED: SODIUM CHLORIDE 1,000 ML IV SCH (03:45)
[2017-05-18] MEDS ORDERED: CEFEPIME 2 GM/100 ML BAG PRE-DOCKED IVPB ONE (03:45)
[2017-05-18] MEDS ORDERED: CEFEPIME 2 GM/100 ML BAG IVPB ONE (04:19)
[2017-05-18] MEDS ORDERED: DIGOXIN 0.5 MG/2 ML AMPUL IVPUSH ONE ×2 (04:59→06:19)
--- NOTE | 2017-05-18 05:05 | HP ---
CHIEF COMPLAINT: fever, gen weakness PCP: Kiran HISTORY OF PRESENT ILLNESS: This is an 81 year old female with multiple recent hospitalizations, most recent from 04/30-05/10/17 for pneumonia, who presented to the ED with fever and generalized weakness. Daughter states the patient was for the first few days post discharge but started having intermittent low grade temps (<101) on Monday. The fevers became more persistent, prompting the ED visit. Pt denies pain on exam. ER course was notable for: (1) WBC 3.3, ANC 347 (calculated) (2) Temp 102.8 Recent Travel: none PAST MEDICAL HISTORY: Multiple myeloma, last received chemo 04/25, s/p XRT for spinal cord compression COPD HLD MS OA Diverticulosis/diverticulitis PAST SURGICAL HISTORY: Social History: Smoking: Alcohol: Drugs: Family History: mother had DM, age 86, dementia father age 71, PE, COPD sister age 64, COPD sister BrCA survivor Allergies aspartame Allergy (Verified 01/25/17 21:48) artificial sugar Latex, Natural Rubber Allergy (Verified 01/12/17 13:47) Penicillins Allergy (Verified 01/12/17 13:47) HOME MEDICATIONS: Protonix 40mg daily Calcium Carbonate + D REVIEW OF SYSTEMS CONSTITUTIONAL: Present: fever, chills, diaphoresis, generalized weakness Absent: malaise, loss of appetite, weight change HEENT: Absent: rhinorrhea, nasal congestion, throat pain, throat swelling, difficulty swallowing, mouth swelling, ear pain, eye pain, visual changes CARDIOVASCULAR: Absent: chest pain, syncope, palpitations, irregular heart rate, lightheadedness , peripheral edema RESPIRATORY: Absent: cough, shortness of breath, dyspnea with exertion, orthopnea, wheezing, stridor, hemoptysis GASTROINTESTINAL: Absent: abdominal pain, abdominal distension, nausea, vomiting, diarrhea, constipation, melena, hematochezia GENITOURINARY: Absent: dysuria, frequency, urgency, hesitancy, hematuria, flank pain, genital pain MUSCULOSKELETAL: Absent: myalgia, arthralgia, joint swelling, back pain, neck pain SKIN: Absent: rash, itching, pallor HEMATOLOGIC/IMMUNOLOGIC: Absent: easy bleeding, easy bruising, lymphadenopathy, frequent infections ENDOCRINE: Absent: unexplained weight gain, unexplained weight loss, heat intolerance, cold intolerance NEUROLOGIC: Absent: headache, focal weakness or paresthesias, dizziness, unsteady gait, seizure, mental status changes, bladder or bowel incontinence PSYCHIATRIC: Absent: anxiety, depression, suicidal or homicidal ideation, hallucinations. PHYSICAL EXAMINATION Vital Signs - 24 hr 3 05/18/17 05/18/17 00:52 04:10 Temperature 102.8 F H Pulse Rate 138 H Pulse Rate [ 115 H Apical] Respiratory 21 21 Rate Blood Pressure 120/68 Blood Pressure 89/52 [Right Arm] O2 Sat by Pulse 90 L 97 Oximetry (%) GENERAL: Awake, alert, and fully oriented, in no acute distress. Face appears flushed HEAD: Normal with no signs of trauma. EYES: Pupils equal, round and reactive to light, extraocular movements intact, sclera anicteric, conjunctiva clear. No lid lag. EARS, NOSE, THROAT: Ears normal, nares patent, oropharynx clear without exudates. Moist mucous membranes. NECK: Normal range of motion, supple without lymphadenopathy, JVD, or masses. LUNGS: Breath sounds equal, clear to auscultation bilaterally. No wheezes, and no crackles. No accessory muscle use. HEART: Irregular rate and rhythm, tachycardia noted, normal S1 and S2 without murmur, rub or gallop. ABDOMEN: Soft, nontender, not distended, normoactive bowel sounds, no guarding, no rebound, no masses. No hepatomegaly or splenomegaly. MUSCULOSKELETAL: Normal range of motion at all joints. No bony deformities or tenderness. No CVA tenderness. UPPER EXTREMITIES: 2+ pulses, warm, well-perfused. No cyanosis. No clubbing. No peripheral edema. LOWER EXTREMITIES: 2+ pulses, warm, well-perfused. No calf tenderness. No peripheral edema. NEUROLOGICAL: Cranial nerves II-XII intact. Normal speech. Normal gait. PSYCHIATRIC: Cooperative. Good eye contact. Appropriate mood and affect. SKIN: Warm, dry, normal turgor, no rashes or lesions noted, normal capillary refill. Laboratory Results - last 24 hr 3 05/18/17 05/18/17 05/18/17 01:17 01:17 :17 WBC 3.3 L D RBC 2.80 L Hgb 8.5 L D Hct 25.1 L MCV 89.5 MCH 30.3 MCHC 33.8 RDW 15.3 Plt Count 245 MPV 7.7 Neutrophils % No Result Required. Neutrophils % (Manual) 8.4 L D Band Neutrophils % 2.1 Lymphocytes % No Result Required. Lymphocytes % (Manual) 40.0 D Monocytes % (Manual) 39 H* D Eosinophils % (Manual) 0.0 D Basophils % (Manual) 0.0 Myelocytes % (Man) 1 D Metamyelocytes 2 D PT with INR 12.30 H INR 1.09 PTT (Actin FS) 29.3 VBG pH 7.40 POC VBG pCO2 29.9 L D POC VBG pO2 39.2 D Mixed VBG HCO3 18.2 L Sodium Potassium Chloride Carbon Dioxide Anion Gap BUN Creatinine Creat Clearance w eGFR Random Glucose Lactic Acid Calcium Total Bilirubin AST ALT Alkaline Phosphatase Creatine Kinase Troponin I Total Protein Albumin Urine Color Urine Appearance Urine pH Ur Specific [place] Urine Protein Urine Glucose (UA) Urine Ketones Urine Blood Urine Nitrite Urine Bilirubin Urine Urobilinogen Urine WBC (Auto) Urine RBC (Auto) Ur Epithelial Cells Urine Bacteria Urine Mucus Blood Type Antibody Screen 3 05/18/17 05/18/17 05/18/17 01:17 01:17 01:17 WBC RBC Hgb Hct MCV MCH MCHC RDW Plt Count MPV Neutrophils % Neutrophils % (Manual) Band Neutrophils % Lymphocytes % Lymphocytes % (Manual) Monocytes % (Manual) Eosinophils % (Manual) Basophils % (Manual) Myelocytes % (Man) Metamyelocytes PT with INR INR PTT (Actin FS) VBG pH POC VBG pCO2 POC VBG pO2 Mixed VBG HCO3 Sodium 124 L* D Potassium 6.1 H* D Chloride 89 L D Carbon Dioxide 17 L D Anion Gap 18 H BUN 99 H D Creatinine 5.3 H D Creat Clearance w eGFR 7.75 Random Glucose 99 D Lactic Acid 1.5 Calcium 7.3 L Total Bilirubin 0.5 D AST 45 H ALT 14 Alkaline Phosphatase 64 Creatine Kinase 37 Troponin I < 0.02 Total Protein 6.4 Albumin 2.4 L Urine Color Urine Appearance Urine pH Ur Specific [place] Urine Protein Urine Glucose (UA) Urine Ketones Urine Blood Urine Nitrite Urine Bilirubin Urine Urobilinogen Urine WBC (Auto) Urine RBC (Auto) Ur Epithelial Cells Urine Bacteria Urine Mucus Blood Type O POSITIVE Antibody Screen Negative 3 Urine Color Ltyellow 05/18/17 01:57 Urine Appearance Slcloudy 05/18/17 01:57 Urine pH 7.0 (5.0-8.0) 05/18/17 01:57 Ur Specific [place] 1.008 (1.001-1.035) 05/18/17 01:57 Urine Protein 1+ (NEGATIVE) H 05/18/17 01:57 Urine Glucose (UA) Negative (NEGATIVE) 05/18/17 01:57 Urine Ketones Negative (NEGATIVE) 05/18/17 01:57 Urine Blood Negative (NEGATIVE) 05/18/17 01:57 Urine Nitrite Negative (NEGATIVE) 05/18/17 01:57 Urine Bilirubin Negative (NEGATIVE) 05/18/17 01:57 Ur Epithelial Cells Rare /HPF (FEW) 05/18/17 01:57 Urine Bacteria Rare /hpf (NONE SEEN) 05/18/17 01:57 Urine Mucus Rare 05/18/17 01:57 ECG #1 05/18/17 01:00 sinus tach, vent rate 138 [address]/T changes #2 05/18/17 04:47 atrial fibrillation with RVR Vent rate 148, QTC [address]/T changes Radiology Reports CXR - official read pending, but no obvious infiltrates or effusions, unchanged from previous CT chest THIS IS A PRELIMINARY REPORT FROM [facility] DATE OF SERVICE: 2017-05-18 03:55:28 IMAGES: 16 EXAM: CT CHEST HISTORY: Sepsis COMPARISON: None. FINDINGS: Heart:: There is mild atherosclerotic change in the coronary arteries Pericardium: Mildly thickened suggesting a small pericardial effusion. This measures 5 mm anterior to the right ventricle Thoracic aorta and great vessels: There are mild atherosclerotic changes Superior vena cava and inferior vena cava: Normal Thoracic esophagus: There is a small hiatal hernia Mediastinal lymph nodes: Normal Central airways: Normal Lungs: Patchy bilateral areas of groundglass density and subsegmental atelectasis at the left lung this Pleural spaces: There is a small left pleural fluid collection in the right pleural fluid collection Chest wall: Paraspinal fixation rods in the inferior thoracic spine. There is an old compression fracture and laminectomy defect Superior abdomen: Normal IMPRESSION: Small pericardial effusion is related to pericarditis. Pleural fluid collections are nonspecific. Patchy pulmonary densities are likely related to subsegmental atelectasis and expiratory phase of respiration. THIS DOCUMENT HAS BEEN ELECTRONICALLY SIGNED Mati Short MD 05/18/2017 04:44 EST ASSESSMENT/PLAN: 81yF with PMH Mult myeloma with spinal cord compresion s/p XRT, last chemo 04/25 , COPD, HLD, MS, OA, diverticulitis presented to the ED with intermittent low grade fevers and generalized weakness x 3-4 days. ID sepsis/neutropenic fever - unknown source - cefepime 2g x 1 - vanco 650mg x 1 (15mg/kg dose) - ID consult - 2nd liter NS going, after will given NS @ 75cc/hr REnal acute renal failure with hyperkalemia - Cr from 1.2 to 5.3 in less than one week - given insulin, dextrose, calcium and albuterol - repeat BMP now - renal consult - ? r/t myeloma? hyponatremia - repeat BMP now - NS @ 75cc/hr pending Na result - urine lytes, osmo ordered - serum osmo ordered Cardiology new onset afib with RVR - rate variable between 130s-180s - will give digoxin 0.25mg x 1 now - start heparin drip as unable to give lovenox due to renal failure - cardiology consult Respiratory - recent PNA, will check ABG given CO2 17 on BMP Oncology multiple myeloma - oncology consult PPX - started on heparin drip - cont home protonix for GI PPX FEN - NS @ 75cc/hr - BMP now - regular diet as tolerated Dispo: pt currently requires close monitoring in the ICU due to the complex and severe nature of her condition. Pt is a DNR. Discussed all of the above with Daughter Arleth at length and in detail. All questions answered. Visit type - Emergency Visit Emergency Visit: Yes ED Registration Date: 05/18/17 Care time: The patient presented to the Emergency Department on the above date and was hospitalized for further evaluation of their emergent condition. - New Patient This patient is new to me today: Yes Date on this admission: 05/18/17 - Critical Care Critical Care patient: Yes Total Critical Care Time (in minutes): 60 Critical Care Statement: The care of this patient involved high complexity decision making to prevent further life threatening deterioration of the patient 's condition and/or to evaluate & treat vital organ system(s) failure or risk of failure.
[2017-05-18] MEDS ORDERED: HEPARIN NA (PORCINE) 5,000 UNITS/ML 1ML VIAL IVPUSH PRN ×2 (05:48)
[2017-05-18 05:58] LABS: ANION GAP 16 (8-16); BLOOD UREA NITROGEN 95 mg/dL (7-18); CHLORIDE 97 mmol/L (98-107); CO2 15 mmol/L (21-32); CREATININE 4.8 mg/dL (0.55-1.02); GLUCOSE,RANDOM 114 mg/dL (74-106); MAGNESIUM 1.9 mg/dL (1.8-2.4); PHOSPHOROUS 3.5 mg/dL (2.5-4.9); POTASSIUM 4.7 mmol/L (3.5-5.1); SODIUM 128 mmol/L (136-145)
[2017-05-18 06:02] LABS: CALCIUM 6.5 mg/dL (8.5-10.1)
[2017-05-18 06:06] LABS: ARTERIAL BLOOD GAS BASE EXCESS -9.1 meq/l (-2-2); ARTERIAL BLOOD GAS PCO2 25.4 mmHg (35-45); ARTERIAL BLOOD GAS PO2 88.3 mmHg (68-100); ARTERIAL BLOOD GAS pH 7.38 (7.35-7.45)
[2017-05-18 06:10] LABS: ALLENS TEST POSITIVE
[2017-05-18] MEDS ORDERED: DIGOXIN 0.5 MG/2 ML AMPUL ONE (06:27)
[2017-05-18] MEDS ORDERED: HEPARIN INFUSION - 25,000 UNITS/500 ML INFUS.BAG IVPB ONE (06:50)
[2017-05-18] MEDS: HEPARIN SOD,PORK IN 0.45% NACL 25,000 UNITS/500 ML INFUS.BAG IVPB SCH (07:03)
[2017-05-18] MEDS ORDERED: ALBUTEROL SO4 2.5/IPRATROPIUM 0.5 INH SOL 3 ML VIAL.NEB. NEB ONE (07:26)
--- NOTE | 2017-05-18 07:36 | PDOC ---
History of Present Illness - General Chief Complaint: SIRS, Suspected/Possible Stated Complaint: DEHYDRATION Time Seen by Provider: 05/18/17 00:59 Past History - Past Medical History Allergies/Adverse Reactions: Allergies Allergy/AdvReac Type Severity Reaction Status Date / Time aspartame Allergy Verified 01/25/17 21:48 Latex, Natural Rubber Allergy Verified 01/12/17 13:47 Penicillins Allergy Verified 01/12/17 13:47 Anemia: Yes Asthma: No Cancer: Yes Cardiac Disorders: No CVA: No COPD: No CHF: No Dementia: No Diabetes: No GI Disorders: No Disorders: No HTN: No Hypercholesterolemia: No Liver Disease: No Seizures: No Thyroid Disease: No - Immunization History Td Vaccination: Yes (2009) Immunization Up to Date: No - Suicide/Smoking/Psychosocial Hx Smoking History: Never smoked Have you smoked in the past 12 months: No Information on smoking cessation initiated: No Hx Alcohol Use: No Drug/Substance Use Hx: No Substance Use Type: None Hx Substance Use Treatment: No *Physical Exam - Vital Signs Last Vital Signs Temp Pulse Resp BP Pulse Ox 102.8 F H 140 H 24 82/48 97 05/18/17 00:52 05/18/17 06:55 05/18/17 06:55 05/18/17 06:55 05/18/17 06:55 ED Treatment Course - LABORATORY CBC & Chemistry Diagram: 05/18/17 01:17 05/18/17 05:12 - ADDITIONAL ORDERS Additional order review: Laboratory Results 05/18/17 05/18/17 05/18/17 01:57 01:17 01:17 PT with INR INR PTT (Actin FS) VBG pH POC VBG pCO2 POC VBG pO2 Mixed VBG HCO3 Sodium Potassium Chloride Carbon Dioxide Anion Gap BUN Creatinine Creat Clearance w eGFR Random Glucose Lactic Acid 1.5 Calcium Total Bilirubin AST ALT Alkaline Phosphatase Creatine Kinase Troponin I Total Protein Albumin Urine Color Ltyellow Urine Appearance Slcloudy Urine pH 7.0 Ur Specific [place] 1.008 Urine Protein 1+ H Urine Glucose (UA) Negative Urine Ketones Negative Urine Blood Negative Urine Nitrite Negative Urine Bilirubin Negative Urine Urobilinogen Negative Urine WBC (Auto) 2 Urine RBC (Auto) <1 Ur Epithelial Cells Rare Urine Bacteria Rare Urine Mucus Rare Blood Type O POSITIVE Antibody Screen Negative 05/18/17 05/18/17 05/18/17 01:17 01:17 01:17 PT with INR 12.30 H INR 1.09 PTT (Actin FS) 29.3 VBG pH 7.40 POC VBG pCO2 29.9 L D POC VBG pO2 39.2 D Mixed VBG HCO3 18.2 L Sodium 124 L* D Potassium 6.1 H* D Chloride 89 L D Carbon Dioxide 17 L D Anion Gap 18 H BUN 99 H D Creatinine 5.3 H D Creat Clearance w eGFR 7.75 Random Glucose 99 D Lactic Acid Calcium 7.3 L Total Bilirubin 0.5 D AST 45 H ALT 14 Alkaline Phosphatase 64 Creatine Kinase 37 Troponin I < 0.02 Total Protein 6.4 Albumin 2.4 L Urine Color Urine Appearance Urine pH Ur Specific [place] Urine Protein Urine Glucose (UA) Urine Ketones Urine Blood Urine Nitrite Urine Bilirubin Urine Urobilinogen Urine WBC (Auto) Urine RBC (Auto) Ur Epithelial Cells Urine Bacteria Urine Mucus Blood Type Antibody Screen 05/18/17 01:17 RBC 2.80 L MCV 89.5 MCHC 33.8 RDW 15.3 MPV 7.7 Neutrophils % No Result Required. Lymphocytes % No Result Required. - Medications Given in the ED: ED Medications Discontinued Medications Generic Name Dose Route Start Last Admin Trade Name Freq PRN Reason Stop Dose Admin Acetaminophen 1,000 mg 05/18/17 01:05 05/18/17 01:16 Ofirmev Injection - IVPB 05/18/17 01:06 1,000 mg ONCE ONE Administration Albuterol Sulfate 1 amp 05/18/17 03:15 05/18/17 03:31 Ventolin 0.083% Nebulizer Soln - NEB 05/18/17 03:16 1 amp ONCE ONE Administration Calcium Gluconate 1,000 mg 05/18/17 03:10 05/18/17 03:30 Calcium Gluconate 10% - IVPUSH 05/18/17 03:11 1,000 mg ONCE ONE Administration Cefepime HCl 2 gm 05/18/17 03:45 05/18/17 04:27 Maxipime 2gm Ivpb (Pre-Docked) IVPB 05/18/17 03:46 2 gm ONCE ONE Administration Dextrose 50 gm 05/18/17 03:12 05/18/17 03:30 D50w (Vial) - IVPUSH 05/18/17 03:13 50 gm NOW ONE Administration Digoxin 0.25 mg 05/18/17 06:19 12/21/17 06:33 Lanoxin Injection - IVPUSH 05/18/17 06:20 0.25 mg ONCE ONE Administration Sodium Chloride 1,000 mls @ 1,000 mls/hr 05/18/17 01:05 05/18/17 01:16 Normal Saline - IV 05/18/17 02:04 1,000 mls/hr ASDIR STA Administration Sodium Chloride 1,000 mls @ 1,000 mls/hr 05/18/17 03:18 05/18/17 03:31 Normal Saline - IV 05/18/17 04:17 1,000 mls/hr ASDIR STA Administration Vancomycin HCl 650 mg/ 250 mls @ 250 mls/hr 05/18/17 03:36 05/18/17 05:41 Dextrose IVPB 05/18/17 04:35 250 mls/hr ONCE ONE Administration Protocol Insulin Human Regular 10 units 05/18/17 03:11 05/18/17 03:30 Novolin R Vial *For Ivpush Or Iv Drip Only* IVPUSH 05/18/17 03:12 10 units ONCE ONE Administration Medical Decision Making - Medical Decision Making 05/18/17 07:42 Pt signed out by Dr. Stevenson as pending ICU admission for sepsis, hyponatremia and acute renal failure. I find her to be mildly hypotensive with a MAP of 67. Baseline SBP in the 80's-100's. Patient is also tachycardic, treated with heparin for a fib--looking at her EKG I think that she may have MAT. Will recheck EKG and rhythm strip, reassess. Lactate is increasing. Will continue judicious hydration. Patient has already recieved a 40 cc/kg bolus. *DC/Admit/Observation/Transfer Diagnosis at time of Disposition: Fever and neutropenia, Severe sepsis, Multiple myeloma, Hyponatremia, Hyperkalemia, diminished renal excretion - Referrals - Patient Instructions - Post Discharge Activity
[2017-05-18] MEDS ORDERED: dilTIAZem HCL 50 MG/10 ML - 10 ML VIAL IVPUSH ONE (08:41)
--- NOTE | 2017-05-18 08:48 | CONSULT ---
Consultation: REQUESTING PROVIDER: CONSULT REQUEST: We have been asked to medically evaluate this patient for neutropenic fever, sepsis. HISTORY OF PRESENT ILLNESS: 81 y/o F with PMH Multiple myeloma (last chemo session 04/24; on cytotoxan, kyerolis and dexamethasone- has been on dexa since October), COPD, HLD, MS, OA, diverticulosis, recent hospitalization in early April for PNA (tx w/ cefepime and azithro) who presented to ED with intermittent fevers over past week. As per pt's daughter, pt developed a pain in her R groin a week ago, which they had thought was 2/2 diverticulosis. Late Monday night, she developed a 100.3F fever. The following days, she became intermittently febrile with fevers of 101.3F (tmax), and 101. Daughter gave pt an electrolyte fluid as pt was dehydrated. Last night, pt had R sided chest pain, back pain and became febrile to 101F, thus daughter brought her to the ED. Pt denied headache, SOB, or abdominal pain. Endorsed photophobia (pt has had ever since started chemo). While in the ED, pt febrile to 102.8F. HR tachycardic 115, lactic acid 2.5. CT chest (unofficial read) revealed possible small pericardial effusion, while on CXR patchy b/l areas, ground glass appearance, subsegmental atelectasis on L. Pt received Cefepime 2gx1, and vanco loading dose 650mg x1. Received 2L NS and is continuing to receive fluids at 75 mls/hr. ID team consulted for neutropenic fever and sepsis. REVIEW OF SYSTEMS: CONSTITUTIONAL: +dehydration Absent: fever, chills, diaphoresis, generalized weakness, malaise, loss of appetite, weight change HEENT: Absent: rhinorrhea, nasal congestion, throat pain, throat swelling, difficulty swallowing, mouth swelling, ear pain, eye pain, visual changes CARDIOVASCULAR: Absent: chest pain, syncope, palpitations, irregular heart rate, lightheadedness , peripheral edema RESPIRATORY: +labored breathing Absent: cough, shortness of breath, dyspnea with exertion, orthopnea, wheezing, stridor, hemoptysis GASTROINTESTINAL: Absent: abdominal pain, abdominal distension, nausea, vomiting, diarrhea, constipation, melena, hematochezia GENITOURINARY: Absent: dysuria, frequency, urgency, hesitancy, hematuria, flank pain, genital pain MUSCULOSKELETAL: Absent: myalgia, arthralgia, joint swelling, back pain, neck pain SKIN: Absent: rash, itching, pallor HEMATOLOGIC/IMMUNOLOGIC: Absent: easy bleeding, easy bruising, lymphadenopathy, frequent infections ENDOCRINE: Absent: unexplained weight gain, unexplained weight loss, heat intolerance, cold intolerance NEUROLOGIC: Absent: headache, focal weakness or paresthesias, dizziness, unsteady gait, seizure, mental status changes, bladder or bowel incontinence PSYCHIATRIC: +anxiety Absent: anxiety, depression, suicidal or homicidal ideation, hallucinations. PHYSICAL EXAMINATION Vital Signs - 24 hr 05/18/17 05/18/17 05/18/17 00:52 04:10 06:14 Temperature 102.8 F H Pulse Rate 138 H Pulse Rate [ 115 H 125 H Apical] Respiratory 21 21 16 Rate Blood Pressure 120/68 Blood Pressure 89/52 82/48 [Right Arm] O2 Sat by Pulse 90 L 97 96 Oximetry (%) 05/18/17 05/18/17 06:55 08:13 Temperature Pulse Rate Pulse Rate [ 140 H 162 H Apical] Respiratory 24 22 Rate Blood Pressure Blood Pressure 82/48 86/62 [Right Arm] O2 Sat by Pulse 97 95 Oximetry (%) GENERAL: Awake, AAOx3, in distress. With labored breathing, extremely anxious HEAD: Normal with no signs of trauma. EYES: Photophobia. However pupils equal, round and reactive to light, extraocular movements intact, sclera anicteric NECK: Normal range of motion, supple LUNGS: clear to auscultation b/l. No crackles, rhonchi, or wheezing appreciated. However labored breathing. Mild use of accessory muscles HEART: Regular rate and rhythm, normal S1 and S2 without murmur, rub or gallop. ABDOMEN: Soft, nontender, distended, normoactive bowel sounds, no guarding, no rebound MUSCULOSKELETAL: 3/5 motor strength lower extremities. LOWER EXTREMITIES: 2+ posterior tibial pulses, very warm. well-perfused. No peripheral edema. NEUROLOGICAL: Cranial nerves II-XII appear to be intact. PSYCHIATRIC:extremely anxious Laboratory Results 05/18/17 05/18/17 05/18/17 00:52 04:10 06:14 Temperature 102.8 F H Pulse Rate 138 H Blood Pressure 89/52 82/48 [Right Arm] 05/18/17 06:55 Temperature Pulse Rate Blood Pressure 82/48 [Right Arm] 05/18/17 05/18/17 05/18/17 01: 01: 06:00 WBC 3.3 L D Hgb 8.5 L D Hct 25.1 L Neutrophils % (Manual) 8.4 L D Monocytes % (Manual) 39 H* D ABG pH 7.38 ABG pCO2 at Pt Temp 25.4 L ABG HCO3 14.7 L* ABG O2 Content 9.1 L* Sodium 124 L* D Potassium 6.1 H* D Anion Gap 18 H Creatinine 5.3 H D Random Glucose 99 D Calcium 7.3 L AST 45 H Albumin 2.4 L Active Medications Generic Name Dose Route Start Last Admin Trade Name Freq PRN Reason Stop Dose Admin Chlorhexidine Gluconate 1 applic 05/18/17 22:00 Hibiclens For Decolonization - TP HS TOMÁS Heparin Sodium (Porcine) 1,000 unit 05/18/17 05:48 Heparin - IVPUSH PRN PRN Heparin Heparin Sodium (Porcine) 5,000 unit 05/18/17 05:48 Heparin - IVPUSH PRN PRN Heparin Sodium Chloride 1,000 mls @ 75 mls/hr 05/18/17 03:45 05/18/17 06:40 Normal Saline - IV 75 mls/hr ASDIR TOMÁS Administration HEPARIN SOD,PORK IN 0.45% NACL 25,000 units in 500 mls @ 16 mls/hr 05/18/17 06 :00 05/18/17 07:03 Heparin-1/2ns 25,000 Units/500 IVPB 800 unit/hr TITR TOMÁS 16 mls/hr Protocol Administration 800 UNIT/HR Mupirocin 1 applic 05/18/17 10:00 Bactroban Ointment (For Decolonization) - NS 05/23/17 09:59 BID [facility] Pantoprazole Sodium 40 mg 05/18/17 10:00 Protonix - PO DAILY [facility] ASSESSMENT/PLAN: #severe neutropenic fever possibly 2/2 chemo, or MM #sepsis 2/2 PNA -febrile 102.8F, tachy 115, BP 86/66, lactic acid 2.5, ground glass appearance CXR -ANC 347 (severe as ANC < 500) -Neutropenia may be 2/2 to chemo, or MM d/t effect on bone marrow -last chemo session 04/27 -received cefepime 2gx1, vanco 650 mg loading dose while in ED -F/u vanco level, if low will need to redose -F/u fungitel to r/o fungal cause -F/u LDH to r/o PCP -Bactrim will be added if resp status declines -Started on meropenem 500 mg IVPB BID Thank you Camila Singh MD PGY-1 ID Team Dispo: We will continue to follow the patient. Thank you for this consultative opportunity. Visit type - Emergency Visit Emergency Visit: No - New Patient This patient is new to me today: Yes Date on this admission: 05/18/17 - Critical Care Critical Care patient: No
[2017-05-18] MEDS ORDERED: dilTIAZem HCL 125 MG/25 ML - 25 ML VIAL ONE (09:11)
--- NOTE | 2017-05-18 09:36 | PN ---
Teaching Attending Note Name of Resident: Camila Singh ATTENDING PHYSICIAN STATEMENT I saw and evaluated the patient. I reviewed the resident's note and discussed the case with the resident. I agree with the resident's findings and plan as documented. SUBJECTIVE:Clinical history reviewed Known Myeloma with Thoracic compression fractures and spian surgery in the past longterm chemotherapy with Decadron and most recently on Apr 27 got Cytoxan and Kyrolis. Recent admission treated with antibiotics for PNA Cefepime and Azithromycin negative cultures. Now since 5 days ago weak SOB bad couph on and off fevers and here hypoxemic Now Neutropenic ANC 347 OBJECTIVE: ASSESSMENT AND PLAN: Selected Entries 05/18/17 00:52 Temperature 102.8 F H Pulse Rate 138 H Respiratory 21 Rate Blood Pressure 120/68 O2 Sat by Pulse 90 L Oximetry (%) Ill appearing but alert oriented Dyspneic Microbiology 05/18/17 05:30 Nasopharyngeal Swab Influenza Types A,B Antigen (ROSALINDA) - Final 05/18/17 05:30 Nasopharyngeal Swab - Final Laboratory Tests 05/18/17 05/18/17 05/18/17 01:17 01:17 05:12 WBC 3.3 L D Hgb 8.5 L D Hct 25.1 L Plt Count 245 Lymphocytes % (Manual) 40.0 D Monocytes % (Manual) 39 H* D Myelocytes % (Man) 1 D Metamyelocytes 2 D INR 1.09 BUN 95 H Creatinine 4.8 H Lactic Acid 05/18/17 05:24 WBC Hgb Hct Plt Count Lymphocytes % (Manual) Monocytes % (Manual) Myelocytes % (Man) Metamyelocytes INR BUN Creatinine Lactic Acid 2.5 H* Assessment Sepsis syndrome Pneumonia " ground glass" appearance ? opportunistic infection Acute renal failure Myleloma post chemotherapy Neutropenia ? chemotherapy vs myeloma itself Plan Got Vanco initially will check level now Continue Cefepime 500mg q 24 IF worsening respiratory status will add Bactrim for PCP coverage LDH Fadia Christianson MD Problem List - Problems (1) Sepsis affecting skin Code(s): A41.9 - SEPSIS, UNSPECIFIED ORGANISM (2) Sepsis Code(s): A41.9 - SEPSIS, UNSPECIFIED ORGANISM (3) Fever and neutropenia Code(s): D70.9 - NEUTROPENIA, UNSPECIFIED; R50.81 - FEVER PRESENTING WITH CONDITIONS CLASSIFIED ELSEWHERE (4) Multiple myeloma Code(s): C90.00 - MULTIPLE MYELOMA NOT HAVING ACHIEVED REMISSION (5) Acute renal failure Code(s): N17.9 - ACUTE KIDNEY FAILURE, UNSPECIFIED
[2017-05-18] MEDS ORDERED: MEROPENEM 500 MG VIAL (RESTRICTED TO ID) IVPB SCH (10:00)
[2017-05-18] MEDS: PANTOPRAZOLE 40 MG TABLET (FP) PO SCH (10:22)
--- NOTE | 2017-05-18 10:28 | PN ---
Progress Note, Physician Chief Complaint: Unable to obtain from Ms Fuentes. She said she did not feel good but could not elaborate further. Daughter at bedside and saying she had a fever at home and is now coughing and clearing her throat a lot. - Current Medication List Current Medications: Active Medications Chlorhexidine Gluconate (Hibiclens For Decolonization -) 1 applic TP HS TOMÁS Heparin Sodium (Porcine) (Heparin -) 1,000 unit IVPUSH PRN PRN PRN Reason: Heparin Heparin Sodium (Porcine) (Heparin -) 5,000 unit IVPUSH PRN PRN PRN Reason: Heparin Sodium Chloride (Normal Saline -) 1,000 mls @ 75 mls/hr IV ASDIR TOMÁS Last Admin: 05/18/17 06:40 Dose: 75 mls/hr HEPARIN SOD,PORK IN 0.45% NACL (Heparin-1/2ns 25,000 Units/500) 25,000 units in 500 mls @ 16 mls/hr IVPB TITR TOMÁS; 800 UNIT/HR PRN Reason: Protocol Last Admin: 05/18/17 07:03 Dose: 800 unit/hr, 16 mls/hr Meropenem (Merrem (Restricted To Id) -) 500 mg IVPB BID TOMÁS Mupirocin (Bactroban Ointment (For Decolonization) -) 1 applic NS BID TOMÁS Stop: 05/23/17 09:59 Pantoprazole Sodium (Protonix -) 40 mg PO DAILY [facility] Last Admin: 05/18/17 10:22 Dose: 40 mg - Objective Vital Signs: Vital Signs Temperature 36.7 C 05/18/17 10:23 Pulse Rate 121 H 05/18/17 10:23 Respiratory Rate 22 05/18/17 10:23 Blood Pressure 95/59 05/18/17 10:23 O2 Sat by Pulse Oximetry (%) 94 L 05/18/17 10:23 Constitutional: Yes: Moderate Distress Cardiovascular: Yes: Tachycardia, Pulse Irregular. No: Gallop, Murmur, Rub Respiratory: Yes: Regular, On Nasal O2, Rales, Rhonchi. No: CTA Bilaterally, Tachypnea, Wheezes Gastrointestinal: Yes: Normal Bowel Sounds, Soft. No: Distention, Tenderness Extremities: Yes: WNL Edema: No Labs: CBC, BMP 05/18/17 01:17 05/18/17 05:12 INR, PTT INR 1.09 (0.82-1.09) 05/18/17 01:17 Problem List - Problems (1) Septic shock Assessment/Plan: -patient with neutropenia and septic shock -shock indicated by end organ damage with hypotension, lactic acidosis, and severe ARF -currently on fluids with some response, but may need pressors if blood pressure does not respond -ID following, on merrem -received vancomycin overnight, defer continuing to ID -will need dosing by levels of vancomycin secondary to ARF on CKD Code(s): A41.9 - SEPSIS, UNSPECIFIED ORGANISM; R65.21 - SEVERE SEPSIS WITH SEPTIC SHOCK (2) Fever and neutropenia Assessment/Plan: -currently unclear source -possible atypical pneumonia since immunosuppressed -ID following and managing antimicrobials Code(s): D70.9 - NEUTROPENIA, UNSPECIFIED; R50.81 - FEVER PRESENTING WITH CONDITIONS CLASSIFIED ELSEWHERE (3) Atrial fibrillation with RVR Assessment/Plan: -secondary to septic shock -cardiology consult -continue heparin gtt -hold on rate controlling agents until shock resolved Code(s): I48.91 - UNSPECIFIED ATRIAL FIBRILLATION (4) Acute renal failure Assessment/Plan: -secondary to sepsis with hypotension -case d/w nephrology -hydration with IVF -continue antibiotics Code(s): N17.9 - ACUTE KIDNEY FAILURE, UNSPECIFIED (5) Metabolic encephalopathy Assessment/Plan: -secondary to septic shock -as above Code(s): G93.41 - METABOLIC ENCEPHALOPATHY (6) Hyponatremia Assessment/Plan: -improving with hydration Code(s): E87.1 - HYPO-OSMOLALITY AND HYPONATREMIA (7) Hypocalcemia Assessment/Plan: -monitor, may need replacement Code(s): E83.51 - HYPOCALCEMIA (8) Multiple myeloma Assessment/Plan: -oncology following Code(s): C90.00 - MULTIPLE MYELOMA NOT HAVING ACHIEVED REMISSION Assessment/Plan 41 minutes spent in critical care time with this patient
--- NOTE | 2017-05-18 11:22 | CON.CARD ---
Cardiology Consult (text) - Consultation Consultation Note: cc: AMS hpi: 81 f hx MM, hld, here with ams. Recent admit for pna. At home had decreased uop, ams, fever. No cp, sob, palps, dizzy, loc, pnd, orthopnea, le edema. Found to have sepsis, new onset afib with rvr in ER. pmh/psh: per hpi social: no tob fam: no premature cad, scd ros: per hpi; no nvd, +fever, no muscle pain, gib, hematuria, dysuria, FELIPE, vision changes meds: Current Medications Generic Name Dose Route Start Last Admin Trade Name Freq PRN Reason Stop Dose Admin Chlorhexidine Gluconate 1 applic 05/18/17 22:00 Hibiclens For Decolonization - TP HS TOMÁS Heparin Sodium (Porcine) 1,000 unit 05/18/17 05:48 Heparin - IVPUSH PRN PRN Heparin Heparin Sodium (Porcine) 5,000 unit 05/18/17 05:48 Heparin - IVPUSH PRN PRN Heparin Sodium Chloride 1,000 mls @ 75 mls/hr 05/18/17 03:45 05/18/17 06:40 Normal Saline - IV 75 mls/hr ASDIR TOMÁS Administration HEPARIN SOD,PORK IN 0.45% NACL 25,000 units in 500 mls @ 16 mls/hr 05/18/17 06 :00 05/18/17 07:03 Heparin-1/2ns 25,000 Units/500 IVPB 800 unit/hr TITR TOMÁS 16 mls/hr Protocol Administration 800 UNIT/HR Meropenem 500 mg 05/18/17 10:00 Merrem (Restricted To Id) - IVPB BID TOMÁS Mupirocin 1 applic 05/18/17 10:00 Bactroban Ointment (For Decolonization) - NS 05/23/17 09:59 BID TOMÁS Pantoprazole Sodium 40 mg 05/18/17 10:00 05/18/17 10:22 Protonix - PO 40 mg DAILY TOMÁS Administration pe: Vital Signs Temp 98.0 F 05/18/17 10:23 Pulse 121 H 05/18/17 10:23 Resp 22 05/18/17 10:23 BP 95/59 05/18/17 10:23 Pulse Ox 94 L 05/18/17 10:23 Intake & Output 05/17/17 05/17/17 05/18/17 11:59 23:59 11:59 Weight 95 lb Other: Height 4 ft 4 in Body Mass Index (BMI) 24.7 Weight Measurement Method Est/Stated by Patient nad no jvd rrr s1s2 no mrg cta bl nl eff awake alert appropriate no jaundice diaphoresis pos dp pt no carotid bruits no le e/c/c abd nt nd pos bs Laboratory Last Values WBC 3.3 K/mm3 (4.0-10.0) L D 05/18/17 01:17 RBC 2.80 M/mm3 (3.60-5.2) L 05/18/17 01:17 Hgb 8.5 GM/dL (10.7-15.3) L D 05/18/17 01:17 Hct 25.1 % (32.4-45.2) L 05/18/17 01:17 MCV 89.5 fl (80-96) 05/18/17 01:17 MCH 30.3 pg (25.7-33.7) 05/18/17 01:17 MCHC 33.8 g/dl (32.0-36.0) 05/18/17 01:17 RDW 15.3 % (11.6-15.6) 05/18/17 01:17 Plt Count 245 K/MM3 (134-434) 05/18/17 01:17 MPV 7.7 fl (7.5-11.1) 05/18/17 01:17 Neutrophils % No Result Required. 05/18/17 01:17 Neutrophils % (Manual) 8.4 % (42.8-82.8) L D 05/18/17 01:17 Band Neutrophils % 2.1 % 05/18/17 01:17 Lymphocytes % No Result Required. 05/18/17 01:17 Lymphocytes % (Manual) 40.0 % (8-40) D 05/18/17 01:17 Monocytes % (Manual) 39 % (3.8-10.2) H* D 05/18/17 01:17 Eosinophils % (Manual) 0.0 % (0-4.5) D 05/18/17 01:17 Basophils % (Manual) 0.0 % (0-2.0) 05/18/17 01:17 Myelocytes % (Man) 1 % (0-2) D 05/18/17 01: Metamyelocytes 2 % (0-2) D 05/18/17: PT with INR 12.30 SEC (9.98-11.88) H 05/18/17: INR 1.09 (0.82-1.09) 05/18/17: PTT (Actin FS) 29.3 SECONDS (26.9-34.4) 05/18/17: Anticoagulation Therapy Y 05/18/17 06:00 Puncture Site Left radial 05/18/17 06:00 ABG pH 7.38 (7.35-7.45) 05/18/17 06:00 ABG pCO2 at Pt Temp 25.4 mmHg (35-45) L 05/18/17 06:00 ABG pO2 at Pt Temp 88.3 mmHg (68-100) 05/18/17 06:00 ABG HCO3 14.7 meq/L (22-26) L* 05/18/17 06:00 ABG O2 Sat (Measured) 96.0 % (90-98.9) 05/18/17 06:00 ABG O2 Content 9.1 % vol (15-22) L* 05/18/17 06:00 ABG Base Excess -9.1 meq/l (-2-2) L 05/18/17 06:00 Neil Test Positive 05/18/17 06:00 VBG pH 7.40 (7.32-7.42) 05/18/17 01: POC VBG pCO2 29.9 mmHg (38-52) L D 05/18/17: POC VBG pO2 39.2 mmHg (28-48) D 05/18/17:17 Mixed VBG HCO3 18.2 meq/L (19-25) L 05/18/17 01:17 O2 Delivery Device Y 05/18/17 06:00 Oxygen Flow Rate 3l 05/18/17 06:00 Vent Mode Y 05/18/17 06:00 Vent Rate Y 05/18/17 06:00 Mechanical Rate Y 05/18/17 06:00 Pressure Support Vent Y 05/18/17 06:00 Sodium 128 mmol/L (136-145) L 05/18/17 05:12 Potassium 4.7 mmol/L (3.5-5.1) D 05/18/17 05:12 Chloride 97 mmol/L (98-107) L 05/18/17 05:12 Carbon Dioxide 15 mmol/L (21-32) L 05/18/17 05:12 Anion Gap 16 (8-16) 05/18/17 05:12 BUN 95 mg/dL (7-18) H 05/18/17 05:12 Creatinine 4.8 mg/dL (0.55-1.02) H 05/18/17 05:12 Creat Clearance w eGFR 7.75 (>60) 05/18/17 01:17 Random Glucose 114 mg/dL (74-106) H 05/18/17 05:12 Serum Osmolality 294 mosm/kg (278-305) 05/18/17 05:12 Lactic Acid 2.5 mmol/L (0.4-2.0) H* 05/18/17 05:24 Calcium 6.5 mg/dL (8.5-10.1) L* 05/18/17 05:12 Phosphorus 3.5 mg/dL (2.5-4.9) D 05/18/17 05:12 Magnesium 1.9 mg/dL (1.8-2.4) 05/18/17 05:12 Total Bilirubin 0.5 mg/dL (0.2-1.0) D 05/18/17 01:17 AST 45 U/L (15-37) H 05/18/17 01:17 ALT 14 U/L (12-78) 05/18/17 01:17 Alkaline Phosphatase 64 U/L (45-117) 05/18/17 01:17 Creatine Kinase 37 IU/L (26-192) 05/18/17 01:17 Troponin I < 0.02 ng/ml (0.00-0.05) 05/18/17 01:17 Total Protein 6.4 g/dl (6.4-8.2) 05/18/17 01:17 Albumin 2.4 g/dl (3.4-5.0) L 05/18/17 01:17 Urine Color Ltyellow 05/18/17 01:57 Urine Appearance Slcloudy 05/18/17 01:57 Urine pH 7.0 (5.0-8.0) 05/18/17 01:57 Ur Specific [place] 1.008 (1.001-1.035) 05/18/17 01:57 Urine Protein 1+ (NEGATIVE) H 05/18/17 01:57 Urine Glucose (UA) Negative (NEGATIVE) 05/18/17 01:57 Urine Ketones Negative (NEGATIVE) 05/18/17 01:57 Urine Blood Negative (NEGATIVE) 05/18/17 01:57 Urine Nitrite Negative (NEGATIVE) 05/18/17 01:57 Urine Bilirubin Negative (NEGATIVE) 05/18/17 01:57 Urine Urobilinogen Negative mg/dL (0.2-1.0) 05/18/17 01:57 Urine WBC (Auto) 2 /hpf (3-5) 05/18/17 01:57 Urine RBC (Auto) <1 /hpf (0-3) 05/18/17 01:57 Ur Epithelial Cells Rare /HPF (FEW) 05/18/17 01:57 Urine Bacteria Rare /hpf (NONE SEEN) 05/18/17 01:57 Urine Mucus Rare 05/18/17 01:57 Blood Type O POSITIVE 05/18/17 01:17 Antibody Screen Negative 05/18/17 01:17 echo 02/2017: nl lv/rv, mild mr/tr, nl rvsp ct chest: b/l effs, ILD ecg 05/18/17: afib with rvr, nl qtc, no ischemic changes est cct 35 mins a/p: 81 f hx MM, hld, here with sepsis. septic shock: -cont abx per ID -cont ivfs to maintain bp, so far not requiring pressors -infection w/u in progress -icu monitoring new onset afib: -occurring now in setting of sepsis -rate improved after ivfs/abx -cont to treat sepsis -bp low so if rvr again would start digoxin -chadsvasc is 3, cont ac with hep gtt -recent echo unremarkable aj: -likely due to sepsis, low bp -cont ivfs, abx, monitor trend hld: -stable MM: -on chemo per heme/onc
--- NOTE | 2017-05-18 11:24 | EKG ---
Test Reason : Blood Pressure : / mmHG Vent. Rate : 138 BPM Atrial Rate : 138 BPM P-R Int : 126 ms QRS Dur : 078 ms QT Int : 272 ms P-R-T Axes : 048 008 045 degrees QTc Int : 412 ms POOR DATA QUALITY, INTERPRETATION MAY BE ADVERSELY AFFECTED SINUS TACHYCARDIA POSSIBLE ANTERIOR INFARCT , AGE UNDETERMINED ABNORMAL ECG WHEN COMPARED WITH ECG OF 29-APR-2017 13:49, PREMATURE ATRIAL COMPLEXES ARE NO LONGER PRESENT Confirmed by THOMAS GONSALES, HUONG ([id number]) on 05/18/2017 11:23:56 AM Referred By: Confirmed By:HUONG GUZMAN MD
--- NOTE | 2017-05-18 11:26 | EKG ---
Test Reason : Blood Pressure : / mmHG Vent. Rate : 175 BPM Atrial Rate : 192 BPM P-R Int : 000 ms QRS Dur : 076 ms QT Int : 258 ms P-R-T Axes : 000 013 036 degrees QTc Int : 440 ms ATRIAL FIBRILLATION WITH RAPID VENTRICULAR RESPONSE CANNOT RULE OUT ANTERIOR INFARCT (CITED ON OR BEFORE 18-MAY-2017) ABNORMAL ECG WHEN COMPARED WITH ECG OF 18-MAY-2017 04:47, NO SIGNIFICANT CHANGE WAS FOUND Confirmed by HUONG GUZMAN MD ([id number]) on 05/18/2017 11:26:44 AM Referred By: Confirmed By:HUONG GUZMAN MD
--- NOTE | 2017-05-18 12:43 | CONSULT ---
Consult Consult Specialty:: Pulm/CCM Referred by:: Darline Reason for Consultation:: ICU admission hypotension sepsis - History of Present Illness Chief Complaint: fever History of Present Illness: This is an 81 year old female with multiple medical problems presents to the ED with her daughters with a chief complaints of fevers. Patient was recently discharged 8 days ago after being treated with PNA. Per the daughter after discharge she was having fevers which started trending down then she spiked again which prompted them to come to the hospital. She also complains of generalized weakness. She denies nausea vomiting or shortness of breath. Patient was also noted to be in New onset A fib with RVR. She did complain of right sided chest pain and back pain last night. She denies recent travel. Daughter states her mother did have some diarrhea because she was taking a lot of vitamin C and the crystals of vitamin C in the powder can cause diarrhea per the daughter. Daughter is unsure if diarrhea stopped. Patient is reportedly still on dexamethasone since October. In ED patient was noted to be febrile, AJ, neutropenic, hyponatremic, and lactic acidosis. Patient has also been hypotensive which has been somewhat responsive to fluids. 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 Cardio/Vascular: Yes: Hyperlipdemia Pulmonary: Yes: COPD Gastrointestinal: Yes: Constipation, Diverticulosis (sigmoid diverticulitis in ) Renal/: Yes: Renal Inusuff, Other (aj in past) Musculoskeletal: Yes: Osteoarthritis - Alcohol/Substance Use Hx Alcohol Use: No History of Substance Use: reports: None - Smoking History Smoking history: Never smoked Have you smoked in the past 12 months: No - Social History Usual Living Arrangement: Other ADL: Family Assistance 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 ? dementia), CA: Sister (2, one 64 with COPD, one sister is breast cancer survivor), Other: Father ( : 71 pulmonary embolism. COPD), Mother, Sister, Daughter (healthy) Review of Systems - Review of Systems Constitutional: reports: Chills, Fever, Loss of Appetite Eyes: reports: No Symptoms HENT: reports: No Symptoms Neck: reports: No Symptoms Cardiovascular: reports: Chest Pain, Palpitations Respiratory: reports: No Symptoms Gastrointestinal: reports: Abdominal Pain Genitourinary: reports: No Symptoms Musculoskeletal: reports: Back Pain Integumentary: reports: No Symptoms Neurological: reports: No Symptoms Endocrine: reports: No Symptoms Physical Exam Vital Signs: Vital Signs Temperature 98.0 F 05/18/17 10:23 Pulse Rate 121 H 05/18/17 10:23 Respiratory Rate 22 05/18/17 10:23 Blood Pressure 95/59 05/18/17 10:23 O2 Sat by Pulse Oximetry (%) 94 L 05/18/17 10:23 Constitutional: Yes: Well Nourished, No Distress Eyes: Yes: EOM Intact HENT: Yes: Atraumatic Neck: Yes: Supple, Trachea Midline Cardiovascular: Yes: Tachycardia, S1, S2. No: Murmur Respiratory: Yes: CTA Bilaterally, Diminished Gastrointestinal: Yes: Soft, Abdomen, Obese. No: Tenderness Neurological: Yes: Alert Psychiatric: Yes: Alert Labs: CBC, BMP 05/18/17 01:17 05/18/17 05:12 Imaging - Results Chest X-ray: Report Reviewed, Image Reviewed Cat Scan: Report Reviewed, Image Reviewed Assessment/Plan 81yF with multiple medical problems including 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 Severe Sepsis/Neutropenia/ possible neutropenic fever-possible lung source given symptoms history and imaging but work up is still in progress. F/u Culutres ID consult appreciated on meropenem as she was previously on cefepime give 1 liter bolus now and then increase fluids rate to 125ml/hr strict I/Os pressor support PRN Check urine antigens for PNA Trend CBC New onset A fib: now sinus tachycardia-possible A fibb is secondary to sepsis cardiology consult continue heparin gtt per protocol PTT per protocol rate control digoxin if needed since she is hypotensive Check thyroid function tests AJ: nephrology consult likely prerenal due to volume depletion and sepsis will send urine lytes to calculate FeNa renal/bladder ultrasound avoid nephrotoxic drugs trend Cr Renally dose all meds Hyponatremia: Acute as Na was WNL before discharge continue IVF NS trend BMP repeat BMP @ 1800 not to increase 10meq in 24 hours nephrology consult appreciated Check AM cortisol given hyponatremia and hyperkalemia Lactic Acidosis: trend lactate IVF resuscitation Diarrhea: Check C diff as she was recently on ABx Hyperkalemia: likely due to AJ treated and resolved multiple myeloma: Dr. Bello consulted Hyperlipidemia: PPx: started on heparin drip Protonix PT consult FEN: NS @ 125cc/hr correct hyponatremia/as above Puree diet Pt is a DNR. Daughter at bedside. patient seen and case discussed with Dr. Garg and patient's daughter
[2017-05-18 12:45] VITALS: BMI 33.3
[2017-05-18] MEDS ORDERED: MEROPENEM 500 MG PUSH 500 MG/10 ML DISP.SYRIN IVPUSH SCH (12:45)
[2017-05-18] MEDS ORDERED: MEROPENEM 1 GM PUSH 1 GM/20 ML DISP.SYRIN IVPUSH SCH (12:45)
[2017-05-18] MEDS: MUPIROCIN 2% TOPICAL OINTMENT FOR DECOLONIZATION NS SCH ×2 (13:06→21:35)
[2017-05-18] MEDS: SODIUM CHLORIDE 1,000 ML IV SCH (13:06)
--- NOTE | 2017-05-18 13:23 | CONSULT ---
Consult Consult Specialty:: Nephrology Reason for Consultation:: SHANIA - History of Present Illness Chief Complaint: generaized weakness History of Present Illness: Pt is an 81 year old female with pmhx of multiple myeloma and CKD who presents to the ER with generalized weakness. I was called to evaluate her for SHANIA. She is accompanied by her daughters. She has had poor PO intake. She did have fever. She had decreased urine output two days ago as per her daughters. I was called to evaluate her for worsening renal function. She was also found to be hyperkalemic and hyponatremic. She is admitted to the ICU for sepsis. - History Source History Provided By: Patient, Medical Record - Past Medical History DIRECTOR SOFTWARE: Yes: Multiple Sclerosis Cardio/Vascular: Yes: Hyperlipdemia Pulmonary: Yes: COPD Gastrointestinal: Yes: Constipation, Diverticulosis (sigmoid diverticulitis in ) Renal/: Yes: Renal Inusuff, Other (shania in past) Musculoskeletal: Yes: Osteoarthritis - Alcohol/Substance Use Hx Alcohol Use: No History of Substance Use: reports: None - Smoking History Smoking history: Never smoked Have you smoked in the past 12 months: No - Social History Usual Living Arrangement: Other ADL: Family Assistance 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 ? dementia), CA: Sister (2, one 64 with COPD, one sister is breast cancer survivor), Other: Father ( : 71 pulmonary embolism. COPD), Mother, Sister, Daughter (healthy) Review of Systems - Review of Systems Constitutional: reports: Chills, Fever, Malaise Eyes: reports: No Symptoms HENT: reports: No Symptoms Neck: reports: No Symptoms Cardiovascular: reports: Shortness of Breath. denies: Edema Respiratory: reports: SOB Gastrointestinal: reports: No Symptoms Genitourinary: reports: No Symptoms Musculoskeletal: reports: Muscle Weakness Neurological: reports: No Symptoms Endocrine: reports: No Symptoms Hematology/Lymphatic: reports: No Symptoms Physical Exam Vital Signs: Vital Signs Temperature 98.0 F 05/18/17 10:23 Pulse Rate 121 H 05/18/17 10:23 Respiratory Rate 22 05/18/17 10:23 Blood Pressure 95/59 05/18/17 10:23 O2 Sat by Pulse Oximetry (%) 94 L 05/18/17 10:23 Constitutional: Yes: Calm Eyes: Yes: Conjunctiva Clear HENT: Yes: Atraumatic Neck: Yes: Supple Cardiovascular: Yes: S1, S2 Respiratory: Yes: On Nasal O2 Gastrointestinal: Yes: Normal Bowel Sounds, Soft Renal/: Yes: Farrar Present Musculoskeletal: Yes: Muscle Weakness Edema: No Neurological: Yes: Oriented Psychiatric: Yes: Oriented Labs: CBC, BMP 05/18/17 01:17 05/18/17 05:12 Laboratory Tests 05/18/17 05/18/17 05/18/17 01:17 01:17 05:12 WBC 3.3 L D Hgb 8.5 L D Sodium 124 L* D 128 L Potassium 6.1 H* D 4.7 D Chloride 89 L D 97 L Carbon Dioxide 17 L D 15 L Anion Gap 18 H 16 BUN 99 H D 95 H Creatinine 5.3 H D 4.8 H Lactic Acid Calcium 6.5 L* 05/18/17 05:24 WBC Hgb Sodium Potassium Chloride Carbon Dioxide Anion Gap BUN Creatinine Lactic Acid 2.5 H* Calcium Imaging - Results Cat Scan: Report Reviewed (reviewed ct) Problem List - Problems (1) Atrial fibrillation with RVR Code(s): I48.91 - UNSPECIFIED ATRIAL FIBRILLATION (2) Fever and neutropenia Code(s): D70.9 - NEUTROPENIA, UNSPECIFIED; R50.81 - FEVER PRESENTING WITH CONDITIONS CLASSIFIED ELSEWHERE (3) Hyperkalemia, diminished renal excretion Code(s): E87.5 - HYPERKALEMIA (4) Hyponatremia Code(s): E87.1 - HYPO-OSMOLALITY AND HYPONATREMIA (5) Multiple myeloma Code(s): C90.00 - MULTIPLE MYELOMA NOT HAVING ACHIEVED REMISSION (6) Sepsis Code(s): A41.9 - SEPSIS, UNSPECIFIED ORGANISM (7) Multiple myeloma Code(s): C90.00 - MULTIPLE MYELOMA NOT HAVING ACHIEVED REMISSION Qualifiers: Assessment/Plan Current Medications Generic Name Dose Route Start Last Admin Trade Name Freq PRN Reason Stop Dose Admin Chlorhexidine Gluconate 1 applic 05/18/17 22:00 Hibiclens For Decolonization - TP HS TOMÁS Heparin Sodium (Porcine) 1,000 unit 05/18/17 05:48 Heparin - IVPUSH PRN PRN Heparin Heparin Sodium (Porcine) 5,000 unit 05/18/17 05:48 Heparin - IVPUSH PRN PRN Heparin HEPARIN SOD,PORK IN 0.45% NACL 25,000 units in 500 mls @ 16 mls/hr 05/18/17 06 :00 05/18/17 07:03 Heparin-1/2ns 25,000 Units/500 IVPB 800 unit/hr TITR TOMÁS 16 mls/hr Protocol Administration 800 UNIT/HR Sodium Chloride 1,000 mls @ 1,000 mls/hr 05/18/17 12:36 Normal Saline - IV 05/18/17 13:35 ASDIR STA Sodium Chloride 1,000 mls @ 125 mls/hr 05/18/17 13:37 05/18/17 13:06 Normal Saline - IV 125 mls/hr ASDIR TOMÁS Administration Meropenem 500 mg in 10 mls @ 120 mls/hr 05/18/17 13:00 Merrem (Restricted To Id) - IVPUSH BID TOMÁS Mupirocin 1 applic 05/18/17 10:00 05/18/17 13:06 Bactroban Ointment (For Decolonization) - NS 05/23/17 09:59 1 applic BID TOMÁS Administration Pantoprazole Sodium 40 mg 05/18/17 10:00 05/18/17 10:22 Protonix - PO 40 mg DAILY TOMÁS Administration Impression 1. SHANIA 2. sepsis 3. anemia 4. CKD 5. multiple myeloma 6. malnutrition 7. proteinuria 8. possible hepatocellular disease seen on ultrasound 9. interstitial lung disease 10. hyponatremia 11. 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
[2017-05-18 13:37] LABS: URINE CREATININE 16.3 mg/dL (20-320)
--- NOTE | 2017-05-18 13:54 | PN ---
Teaching Attending Note Name of Resident: Mahesh Portillo ATTENDING PHYSICIAN STATEMENT I saw and evaluated the patient. I reviewed the resident's note and discussed the case with the resident. I agree with the resident's findings and plan as documented. SUBJECTIVE: Pt seen and examined in the ICU with the resident. Briefly, 81yo female with h/ o multiple myeloma with spinal cord compression s/p RT on chemotherapy, COPD, hyperlipidemia, recent admission for pneumonia treated with cefepime and azithromycin who was admitted with fevers, altered mental status. Found to be septic with fevers, tachycardia and acute on chronic renal failure. Restarted on broad spectrum antibiotics, IVF, transferred to the ICU for further monitoring. OBJECTIVE: Last Vital Signs Temp Pulse Resp BP Pulse Ox 100.6 F H 119 H 26 H 85/52 94 L 05/18/17 11:30 05/18/17 13:28 05/18/17 13:28 05/18/17 13:28 05/18/17 10:23 Intake & Output 05/15/17 05/16/17 05/17/17 05/18/17 23:59 23:59 23:59 23:59 Weight 49.442 kg Gen: lethargic but arousable Heart: tachycardic, regular Lung: decreased breath sounds at the bases Abd: soft, nontender Ext: no edema CBC, BMP 05/18/17 01:17 05/18/17 05:12 Active Medications Chlorhexidine Gluconate (Hibiclens For Decolonization -) 1 applic TP HS TOMÁS Heparin Sodium (Porcine) (Heparin -) 1,000 unit IVPUSH PRN PRN PRN Reason: Heparin Heparin Sodium (Porcine) (Heparin -) 5,000 unit IVPUSH PRN PRN PRN Reason: Heparin HEPARIN SOD,PORK IN 0.45% NACL (Heparin-1/2ns 25,000 Units/500) 25,000 units in 500 mls @ 16 mls/hr IVPB TITR TOMÁS; 800 UNIT/HR PRN Reason: Protocol Last Admin: 05/18/17 07:03 Dose: 800 unit/hr, 16 mls/hr Sodium Chloride (Normal Saline -) 1,000 mls @ 125 mls/hr IV ASDIR TOMÁS Last Admin: 05/18/17 13:06 Dose: 125 mls/hr Meropenem (Merrem (Restricted To Id) -) 500 mg in 10 mls @ 120 mls/hr IVPUSH BID [facility] Mupirocin (Bactroban Ointment (For Decolonization) -) 1 applic NS BID [facility] Stop: 05/23/17 09:59 Last Admin: 05/18/17 13:06 Dose: 1 applic Pantoprazole Sodium (Protonix -) 40 mg PO DAILY [facility] Last Admin: 05/18/17 10:22 Dose: 40 mg ASSESSMENT AND PLAN: r/o Pneumonia Neutropenic Severe Sepsis Acute on Chronic Renal Failure Lactic Acidosis Hyponatremia Hyperkalemia Multiple Myeloma on chemo COPD Hyperlipidemia - broad spectrum antibiotics - f/u cultures - IVF resuscitation - send cortisol levels, TFTs - monitor urine output, creatinine - monitor CBC - continue ICU monitoring critical care time spent in reviewing chart, evaluating patient and formulating plan 35min
[2017-05-18] MEDS: MEROPENEM 500 MG PUSH 500 MG/10 ML DISP.SYRIN IVPUSH SCH ×2 (13:55→21:35)
--- NOTE | 2017-05-18 17:02 | PN ---
Progress Note (short form) - Note Progress Note: Patient seen and examined Pt is an 81 year old female with pmhx of multiple myeloma and CKD who presents to the ER with generalized weakness. She is accompanied by her daughters. She has had poor PO intake. She had decreased urine output two days ago as per her daughters. She was intermittently febrile c/o diarrhea. 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 - Allergies Allergies/Adverse Reactions: Allergies Allergy/AdvReac Type Severity Reaction Status Date / Time aspartame Allergy Verified 01/25/17 21:48 Latex, Natural Rubber Allergy Verified 01/12/17 13:47 Penicillins Allergy Verified 01/12/17 13:47 Active Medications Generic Name Dose Route Start Last Admin Trade Name Freq PRN Reason Stop Dose Admin Chlorhexidine Gluconate 1 applic 05/18/17 22:00 Hibiclens For Decolonization - TP HS TOMÁS Heparin Sodium (Porcine) 1,000 unit 05/18/17 05:48 Heparin - IVPUSH PRN PRN Heparin Heparin Sodium (Porcine) 5,000 unit 05/18/17 05:48 Heparin - IVPUSH PRN PRN Heparin HEPARIN SOD,PORK IN 0.45% NACL 25,000 units in 500 mls @ 16 mls/hr 05/18/17 06 :00 05/18/17 07:03 Heparin-1/2ns 25,000 Units/500 IVPB 800 unit/hr TITR TOMÁS 16 mls/hr Protocol Administration 800 UNIT/HR Sodium Chloride 1,000 mls @ 125 mls/hr 05/18/17 13:37 05/18/17 13:06 Normal Saline - IV 125 mls/hr ASDIR TOMÁS Administration Meropenem 500 mg in 10 mls @ 120 mls/hr 05/18/17 13:00 05/18/17 13:55 Merrem (Restricted To Id) - IVPUSH 120 mls/hr BID TOMÁS Administration Mupirocin 1 applic 05/18/17 10:00 05/18/17 13:06 Bactroban Ointment (For Decolonization) - NS 05/23/17 09:59 1 applic BID TOMÁS Administration Pantoprazole Sodium 40 mg 05/18/17 10:00 05/18/17 10:22 Protonix - PO 40 mg DAILY TOMÁS Administration Family Disease History - Family Disease History Family Disease History: Diabetes: Mother ( 86. ? dementia), CA: Sister (2, one 64 with COPD, one sister is breast cancer survivor), Other: Father ( : 71 pulmonary embolism. COPD), Mother, Sister, Daughter (healthy) Physical Exam Vital Signs: Vital Signs Temperature 98.0 F 05/18/17 10:23 Pulse Rate 121 H 05/18/17 10:23 Respiratory Rate 22 05/18/17 10:23 Blood Pressure 95/59 05/18/17 10:23 O2 Sat by Pulse Oximetry (%) 94 L 05/18/17 10:23 Constitutional: Yes: Calm Eyes: Yes: Conjunctiva Clear HENT: Yes: Atraumatic Neck: Yes: Supple Cardiovascular: Yes: S1, S2 Respiratory: Yes: On Nasal O2 Gastrointestinal: Yes: Normal Bowel Sounds, Soft, mildly distended Renal/: Yes: Farrar Present Musculoskeletal: Yes: Muscle Weakness Edema: No Neurological: Yes: Oriented Psychiatric: Yes: Oriented Labs: CBC, BMP 05/18/17 01:17 05/18/17 05:12 Laboratory Tests 05/18/17 05/18/17 05/18/17 01:17 01:17 05:12 WBC 3.3 L D Hgb 8.5 L D Sodium 124 L* D 128 L Potassium 6.1 H* D 4.7 D Chloride 89 L D 97 L Carbon Dioxide 17 L D 15 L Anion Gap 18 H 16 BUN 99 H D 95 H Creatinine 5.3 H D 4.8 H Lactic Acid Calcium 6.5 L* 05/18/17 05:24 WBC Hgb Sodium Potassium Chloride Carbon Dioxide Anion Gap BUN Creatinine Lactic Acid 2.5 H* Calcium Imaging - Results Cat Scan: Report Reviewed (reviewed ct) Problem List - Problems (1) Atrial fibrillation with RVR Code(s): I48.91 - UNSPECIFIED ATRIAL FIBRILLATION (2) Fever and neutropenia Code(s): D70.9 - NEUTROPENIA, UNSPECIFIED; R50.81 - FEVER PRESENTING WITH CONDITIONS CLASSIFIED ELSEWHERE (3) Hyperkalemia, diminished renal excretion Code(s): E87.5 - HYPERKALEMIA (4) Hyponatremia Code(s): E87.1 - HYPO-OSMOLALITY AND HYPONATREMIA (5) Multiple myeloma Code(s): C90.00 - MULTIPLE MYELOMA NOT HAVING ACHIEVED REMISSION (6) Sepsis Code(s): A41.9 - SEPSIS, UNSPECIFIED ORGANISM (7) Multiple myeloma Code(s): C90.00 - MULTIPLE MYELOMA NOT HAVING ACHIEVED REMISSION Qualifiers: Assessment/Plan 81 y/o patient with myeloma s/p crfilzomib/cytoxan/dex comes in with sepsis/SHANIA on broad spectrum antibiotics check AXR/stool for c.diff, o and P
[2017-05-18 20:12] LABS: ANION GAP 16 (8-16); BLOOD UREA NITROGEN 90 mg/dL (7-18); CHLORIDE 100 mmol/L (98-107); CO2 12 mmol/L (21-32); CREATININE 4.7 mg/dL (0.55-1.02); GLUCOSE,RANDOM 94 mg/dL (74-106); SODIUM 128 mmol/L (136-145)
[2017-05-18 20:25] LABS: POTASSIUM 5.2 mmol/L (3.5-5.1)
[2017-05-18 20:27] LABS: CALCIUM 6.2 mg/dL (8.5-10.1)
[2017-05-18] MEDS ORDERED: CALCIUM GLUCONATE 10% - 1,000 MG/10 ML VIAL IVPB ONE (20:45)
[2017-05-18] MEDS ORDERED: PT OWN MED DRAWER 7, Y5N ONE (21:32)
[2017-05-18] MEDS: CHLORHEXIDINE GLUCONATE 4% CLEANSER FOR DECOLONIZATION TP SCH (21:35)
--- NOTE | 2017-05-19 07:31 | PN ---
Physical Exam: SUBJECTIVE: Patient seen and examined at bedside. No acute events overnight. Last fever 100.6 11:30AM yesterday. Today, pt states that she feels "ok," says she has mild SOB, chest pain and abdominal pain. On 3L NC 02 sat 100%. Denies fever, chills, N/V/D. OBJECTIVE: Vital Signs Period Temp Pulse Resp BP Sys/Saucedo Pulse Ox Last 24 Hr 97.8 F-100.6 F 108-162 16-28 83-110/47-70 94-95 GENERAL: The patient is AAOx2 (to self, place. Thinks it is 1945), in no acute distress. on 3L NC 02, sat well HEAD: Normal with no signs of trauma. EYES: PERRL, extraocular movements intact, sclera anicteric, conjunctiva clear. ENT: Ears normal, nares patent, oropharynx unable to examine- pt refused to open mouth NECK: Trachea midline, supple. LUNGS: Breath sounds equal, clear to auscultation bilaterally, no wheezes, no crackles, no accessory muscle use. HEART: Tachycardic rate and rhythm, S1, S2 without murmur, rub or gallop. ABDOMEN: Soft, nontender, nondistended, normoactive bowel sounds, no guarding EXTREMITIES: 2+ posterior tibial pulses, warm, well-perfused, without edema. NEUROLOGICAL: Cranial nerves II through XII appear to be grossly intact. PSYCH: appears less anxious today Laboratory Results - last 24 hr 05/18/17 18:52 Sodium 128 L Potassium 5.2 H Carbon Dioxide 12 L BUN 90 H Creatinine 4.7 H MICRO -Blood cx (-) -Flu swab (-) RADIO -05/19 CXR: congestive. Possible infiltrate or atelectasis at L base, increased pulmonary and pleural changes since last CXR -05/18 Bladder sono: no hydronephrosis. Minimal cortical echogenicity Active Medications Generic Name Dose Route Start Last Admin Trade Name Freq PRN Reason Stop Dose Admin Chlorhexidine Gluconate 1 applic 05/18/17 22:00 05/18/17 21:35 Hibiclens For Decolonization - TP 1 applic HS TOMÁS Administration Heparin Sodium (Porcine) 1,000 unit 05/18/17 05:48 Heparin - IVPUSH PRN PRN Heparin Heparin Sodium (Porcine) 5,000 unit 05/18/17 05:48 Heparin - IVPUSH PRN PRN Heparin HEPARIN SOD,PORK IN 0.45% NACL 25,000 units in 500 mls @ 16 mls/hr 05/18/17 06 :00 05/18/17 19:00 Heparin-1/2ns 25,000 Units/500 IVPB 800 unit/hr TITR TOMÁS 16 mls/hr Protocol Titration 800 UNIT/HR Sodium Chloride 1,000 mls @ 125 mls/hr 05/18/17 13:37 05/18/17 13:06 Normal Saline - IV 125 mls/hr ASDIR TOMÁS Administration Meropenem 500 mg in 10 mls @ 120 mls/hr 05/18/17 13:00 05/18/17 21:35 Merrem (Restricted To Id) - IVPUSH 120 mls/hr BID TOMÁS Administration Mupirocin 1 applic 05/18/17 10:00 05/18/17 21:35 Bactroban Ointment (For Decolonization) - NS 05/23/17 09:59 1 applic BID TOMÁS Administration Pantoprazole Sodium 40 mg 05/18/17 10:00 05/18/17 10:22 Protonix - PO 40 mg DAILY TOMÁS Administration ASSESSMENT/PLAN: #severe neutropenic fever possibly 2/2 chemo, or MM #sepsis 2/2 PNA -afebrile today. tachy 106, BP 83/54. On 3L NC 02 sat 100%. Lactic acid has normalized, now WNL -Today's CXR: possible infiltrate or atelectasis at L base, increased pleural or pulm changes since last CXR -more alert today, appears less confused -Received vanco loading dose yesterday. F/u vanco level, if low will need to redose -F/u fungitel to r/o fungal cause -F/u LDH to r/o PCP -Meropenem 500 mg IVPB BID - Today is officially Day 1 -Bactrim will be added if resp status declines Thank you Camila Singh MD PGY-1 ID Team Visit type - Emergency Visit Emergency Visit: No - New Patient This patient is new to me today: No - Critical Care Critical Care patient: Yes Total Critical Care Time (in minutes): 32 Critical Care Statement: The care of this patient involved high complexity decision making to prevent further life threatening deterioration of the patient 's condition and/or to evaluate & treat vital organ system(s) failure or risk of failure.
--- NOTE | 2017-05-19 08:12 | PN ---
Teaching Attending Note Name of Resident: Camila Singh ATTENDING PHYSICIAN STATEMENT I saw and evaluated the patient. I reviewed the resident's note and discussed the case with the resident. I agree with the resident's findings and plan as documented. SUBJECTIVE:Clearly she looks better today though still confused as per her daughter Blood cultures no growth OBJECTIVE:Lung Clear Cor S1 S2 RR Abd Soft nontender ASSESSMENT AND PLAN: Sepsis syndrome source unclear Myeloma post chemotherapy Improving Plan Continue current treatment Meropenem Discussed with daughter Critical care time 35 minutes Sammy GONSALES Problem List - Problems (1) Sepsis affecting skin Code(s): A41.9 - SEPSIS, UNSPECIFIED ORGANISM (2) Sepsis Code(s): A41.9 - SEPSIS, UNSPECIFIED ORGANISM (3) Fever and neutropenia Code(s): D70.9 - NEUTROPENIA, UNSPECIFIED; R50.81 - FEVER PRESENTING WITH CONDITIONS CLASSIFIED ELSEWHERE (4) Multiple myeloma Code(s): C90.00 - MULTIPLE MYELOMA NOT HAVING ACHIEVED REMISSION (5) Acute renal failure Code(s): N17.9 - ACUTE KIDNEY FAILURE, UNSPECIFIED
[2017-05-19 08:49] LABS: HEMATOCRIT 22.8 % (32.4-45.2); HEMOGLOBIN 7.5 GM/dL (10.7-15.3); MCHC 33.1 g/dl (32.0-36.0); MEAN CELL VOLUME 90.5 fl (80-96); MEAN PLT VOLUME 7.7 fl (7.5-11.1); PLATELET COUNT 181 K/MM3 (134-434); RBC 2.51 M/mm3 (3.60-5.2); RDW 15.6 % (11.6-15.6); WHITE BLOOD COUNT 2.7 K/mm3 (4.0-10.0)
[2017-05-19 09:12] LABS: ALBUMIN 1.8 g/dl (3.4-5.0); ANION GAP 15 (8-16); BILIRUBIN,TOTAL 0.5 mg/dL (0.2-1.0); BLOOD UREA NITROGEN 86 mg/dL (7-18); CHLORIDE 99 mmol/L (98-107); CO2 14 mmol/L (21-32); CREATININE 4.9 mg/dL (0.55-1.02); GLUCOSE,RANDOM 80 mg/dL (74-106); PHOSPHOROUS 3.8 mg/dL (2.5-4.9); SGPT/ALT 10 U/L (12-78); SODIUM 128 mmol/L (136-145); TOT PROT 5.3 g/dl (6.4-8.2)
[2017-05-19 09:28] LABS: ALK PHOS 58 U/L (45-117); LDH 391 U/L (84-246); MAGNESIUM 1.9 mg/dL (1.8-2.4); POTASSIUM 4.9 mmol/L (3.5-5.1); SGOT/AST 38 U/L (15-37)
[2017-05-19] MEDS ORDERED: PT OWN MED DRAWER 7, Y5N ONE ×2 (09:35→21:18)
[2017-05-19] MEDS: MUPIROCIN 2% TOPICAL OINTMENT FOR DECOLONIZATION NS SCH ×2 (10:18→21:16)
[2017-05-19] MEDS: PANTOPRAZOLE 40 MG TABLET (FP) PO SCH (10:18)
[2017-05-19 10:28] LABS: CALCIUM 6.6 mg/dL (8.5-10.1)
--- NOTE | 2017-05-19 12:12 | PN ---
Progress Note (short form) - Note Progress Note: Patient seen and examined Daughters at bedside States she is clinically improved Less short of breath No chest pains Temp down Last Vital Signs Temp Pulse Resp BP Pulse Ox 97.4 F L 116 H 22 99/60 94 L 05/19/17 10:00 05/19/17 10:00 05/19/17 10:00 05/19/17 10:00 05/19/17 09:00 HEENT: S[place], EOM Intact Oropharynx: No thrush, No mucositis Cor: sinus tach Lungs: Diminished breath sounds bilaterally Abd: Soft, Normal bowel sounds, No organomegaly Ext:No significant LE edema; some edema distal right forearm Skin: No rashes, Integument intact CBC, BMP 05/19/17 08:20 05/19/17 08:20 Current Medications Generic Name Dose Route Start Last Admin Trade Name Freq PRN Reason Stop Dose Admin Chlorhexidine Gluconate 1 applic 05/18/17 22:00 05/18/17 21:35 Hibiclens For Decolonization - TP 1 applic HS TOMÁS Administration Heparin Sodium (Porcine) 1,000 unit 05/18/17 05:48 Heparin - IVPUSH PRN PRN Heparin Heparin Sodium (Porcine) 5,000 unit 05/18/17 05:48 Heparin - IVPUSH PRN PRN Heparin HEPARIN SOD,PORK IN 0.45% NACL 25,000 units in 500 mls @ 16 mls/hr 05/18/17 06 :00 05/18/17 19:00 Heparin-1/2ns 25,000 Units/500 IVPB 800 unit/hr TITR TOMÁS 16 mls/hr Protocol Titration 800 UNIT/HR Sodium Chloride 1,000 mls @ 125 mls/hr 05/18/17 13:37 05/18/17 13:06 Normal Saline - IV 125 mls/hr ASDIR TOMÁS Administration Meropenem 500 mg in 10 mls @ 120 mls/hr 05/18/17 13:00 05/18/17 21:35 Merrem (Restricted To Id) - IVPUSH 120 mls/hr BID TOMÁS Administration Mupirocin 1 applic 05/18/17 10:00 05/19/17 10:18 Bactroban Ointment (For Decolonization) - NS 05/23/17 09:59 1 applic BID TOMÁS Administration Pantoprazole Sodium 40 mg 05/18/17 10:00 05/19/17 10:18 Protonix - PO 40 mg DAILY TOMÁS Administration Chest X-ray review and report reviewed -- congestive changes, left pleural effusion; ? infiltrate left lung Impression: Multiple myeloma- not in remission Sepsis syndrome Anemia Neutropenia ?pneumonia SHANIA Plan: Antibiotics per I.D. Encourage OOB when feasible Transfuse if further fall in Hb/Hct or symptomatic Monitor CBC Monitor kidney function
--- NOTE | 2017-05-19 12:32 | PN ---
Progress Note (short form) - Note Progress Note: s: no cp sob palps dizzy o: Vital Signs Temp 97.4 F L 05/19/17 10:00 Pulse 116 H 05/19/17 10:00 Resp 22 05/19/17 10:00 BP 99/60 05/19/17 10:00 Pulse Ox 94 L 05/19/17 09:00 Intake & Output 05/18/17 05/19/17 05/19/17 23:59 11:59 23:59 Intake Total 1012 1242 Output Total 500 Balance 1012 742 Weight 112 lb 9 oz Intake: IV 962 1092 HEPARIN-1/2NS 25,000 112 192 UNITS/500 25,000 units In 500 ml @ 800 UNIT/HR 16 mls/hr IVPB TITR TOMÁS Rx#: [id number] Normal Saline - 1,000 ml 750 @ 125 mls/hr IV ASDIR TOMÁS Rx#:[id number] Normal Saline - 1,000 ml 100 900 @ 75 mls/hr IV ASDIR TOMÁS Rx#:[id number] IVPB 50 100 Oral 50 Output: Urine 500 Farrar 500 Other: Voiding Method Indwelling Catheter Indwelling Catheter Bowel Movement No Weight Measurement Method Built in [facility] [place] nad no jvd rrr s1s2 no mrg cta bl nl eff awake alert appropriate no jaundice diaphoresis pos dp pt no carotid bruits no le e/c/c abd nt nd pos bs Laboratory Last Values WBC 2.7 K/mm3 (4.0-10.0) L 05/19/17 08:20 RBC 2.51 M/mm3 (3.60-5.2) L 05/19/17 08:20 Hgb 7.5 GM/dL (10.7-15.3) L D 05/19/17 08:20 Hct 22.8 % (32.4-45.2) L 05/19/17 08:20 MCV 90.5 fl (80-96) 05/19/17 08:20 MCH 30.0 pg (25.7-33.7) 05/19/17 08:20 MCHC 33.1 g/dl (32.0-36.0) 05/19/17 08:20 RDW 15.6 % (11.6-15.6) 05/19/17 08:20 Plt Count 181 K/MM3 (134-434) D 12/22/17 08:20 MPV 7.7 fl (7.5-11.1) 05/19/17 08:20 Absolute Neuts (auto) 0.0 # (42.8-82.8) L 05/19/17 08:20 Absolute Lymphs (auto) 0.9 (8-40) L 05/19/17 08:20 Absolute Monos (auto) 1.7 # (3.8-10.2) L 05/19/17 08:20 Absolute Eos (auto) 0.0 # (0-4.5) 05/19/17 08:20 Absolute Basos (auto) 0.0 # (0.1-1) L 05/19/17 08:20 Neutrophils % No Result Required. 05/19/17 08:20 Neutrophils % (Manual) 8.4 % (42.8-82.8) L D 05/18/17 01:17 Band Neutrophils % 2.1 % 05/18/17 01:17 Lymphocytes % No Result Required. 05/19/17 08:20 Lymphocytes % (Manual) 40.0 % (8-40) D 05/18/17 01:17 Monocytes % (Manual) 39 % (3.8-10.2) H* D 05/18/17 01:17 Eosinophils % (Manual) 0.0 % (0-4.5) D 05/18/17 01:17 Basophils % (Manual) 0.0 % (0-2.0) 05/18/17 01:17 Myelocytes % (Man) 1 % (0-2) D 05/18/17 01:17 Metamyelocytes 2 % (0-2) D 05/18/17 01:17 PT with INR 12.30 SEC (9.98-11.88) H 05/18/17 01:17 INR 1.09 (0.82-1.09) 05/18/17 01:17 PTT (Actin FS) 85.7 SECONDS (26.9-34.4) H 05/19/17 08:20 Anticoagulation Therapy Y 05/18/17 06:00 Puncture Site Left radial 05/18/17 06:00 ABG pH 7.38 (7.35-7.45) 05/18/17 06:00 ABG pCO2 at Pt Temp 25.4 mmHg (35-45) L 05/18/17 06:00 ABG pO2 at Pt Temp 88.3 mmHg (68-100) 05/18/17 06:00 ABG HCO3 14.7 meq/L (22-26) L* 05/18/17 06:00 ABG O2 Sat (Measured) 96.0 % (90-98.9) 05/18/17 06:00 ABG O2 Content 9.1 % vol (15-22) L* 05/18/17 06:00 ABG Base Excess -9.1 meq/l (-2-2) L 05/18/17 06:00 Neil Test Positive 05/18/17 06:00 VBG pH 7.40 (7.32-7.42) 05/18/17 01:17 POC VBG pCO2 29.9 mmHg (38-52) L D 05/18/17 01:17 POC VBG pO2 39.2 mmHg (28-48) D 05/18/17 01:17 Mixed VBG HCO3 18.2 meq/L (19-25) L 05/18/17 01:17 O2 Delivery Device Y 05/18/17 06:00 Oxygen Flow Rate 3l 05/18/17 06:00 Vent Mode Y 05/18/17 06:00 Vent Rate Y 05/18/17 06:00 Mechanical Rate Y 05/18/17 06:00 Pressure Support Vent Y 05/18/17 06:00 Sodium 128 mmol/L (136-145) L 05/19/17 08:20 Potassium 4.9 mmol/L (3.5-5.1) 05/19/17 08:20 Chloride 99 mmol/L (98-107) 05/19/17 08:20 Carbon Dioxide 14 mmol/L (21-32) L 05/19/17 08:20 Anion Gap 15 (8-16) 05/19/17 08:20 BUN 86 mg/dL (7-18) H 05/19/17 08:20 Creatinine 4.9 mg/dL (0.55-1.02) H 05/19/17 08:20 Creat Clearance w eGFR 8.48 (>60) 05/19/17 08:20 Random Glucose 80 mg/dL (74-106) 05/19/17 08:20 Serum Osmolality 294 mosm/kg (278-305) 05/18/17 05:12 Lactic Acid 1.7 mmol/L (0.4-2.0) 05/18/17 18:52 Calcium 6.6 mg/dL (8.5-10.1) L* 05/19/17 08:20 Phosphorus 3.8 mg/dL (2.5-4.9) 05/19/17 08:20 Magnesium 1.9 mg/dL (1.8-2.4) 05/19/17 08:20 Total Bilirubin 0.5 mg/dL (0.2-1.0) 05/19/17 08:20 AST 38 U/L (15-37) H 05/19/17 08:20 ALT 10 U/L (12-78) L D 05/19/17 08:20 Alkaline Phosphatase 58 U/L (45-117) 05/19/17 08:20 LD Total 391 U/L (84-246) H D 05/19/17 08:20 Creatine Kinase 37 IU/L (26-192) 05/18/17 01:17 Troponin I < 0.02 ng/ml (0.00-0.05) 05/18/17 01:17 Total Protein 5.3 g/dl (6.4-8.2) L 05/19/17 08:20 Albumin 1.8 g/dl (3.4-5.0) L D 05/19/17 08:20 TSH 1.30 uIU/ml (0.358-3.74) D 05/19/17 08:20 Free T4 0.99 ng/dl (0.76-1.46) 05/19/17 08:20 Cortisol AM Sample 16.9 ug/dL (.) 05/18/17 13:33 Urine Color Ltyellow 05/18/17 01:57 Urine Appearance Slcloudy 05/18/17 01:57 Urine pH 7.0 (5.0-8.0) 05/18/17 01:57 Ur Specific Leon 1.008 (1.001-1.035) 05/18/17 01:57 Urine Protein 1+ (NEGATIVE) H 05/18/17 01:57 Urine Glucose (UA) Negative (NEGATIVE) 05/18/17 01:57 Urine Ketones Negative (NEGATIVE) 05/18/17 01:57 Urine Blood Negative (NEGATIVE) 05/18/17 01:57 Urine Nitrite Negative (NEGATIVE) 05/18/17 01:57 Urine Bilirubin Negative (NEGATIVE) 05/18/17 01:57 Urine Urobilinogen Negative mg/dL (0.2-1.0) 05/18/17 01:57 Ur Leukocyte Esterase Negative (NEGATIVE) 05/18/17 01:57 Urine WBC (Auto) 2 /hpf (3-5) 05/18/17 01:57 Urine RBC (Auto) <1 /hpf (0-3) 05/18/17 01:57 Ur Epithelial Cells Rare /HPF (FEW) 05/18/17 01:57 Urine Bacteria Rare /hpf (NONE SEEN) 05/18/17 01:57 Urine Mucus Rare 05/18/17 01:57 Urine Osmolality 196 mosm/kg (300-900) L 05/18/17 11:30 Ur Random Sodium 42 MMOL/L 05/18/17 11:30 Ur Random Potassium 14.8 MMOL/L 05/18/17 11:30 Ur Random Chloride 35 MMOL/L 05/18/17 11:30 Urine Creatinine 16.3 mg/dL (20-320) L 05/18/17 11:30 Blood Type O POSITIVE 05/18/17 01:17 Antibody Screen Negative 05/18/17 01:17 tele: sinus tachy echo 02/2017: nl lv/rv, mild mr/tr, nl rvsp echo 04/2017: nl lv/rv, mild mr ct chest: b/l effs, ILD ecg 05/18/17: afib with rvr, nl qtc, no ischemic changes est cct 35 mins a/p: 81 f hx MM, hld, here with sepsis. septic shock: -cont abx per ID -cont ivfs to maintain bp, so far not requiring pressors -infection w/u in progress -icu monitoring new onset afib: -occurring now in setting of sepsis -rate improved after ivfs/abx--> now in sr -cont to treat sepsis -bp low so if rvr again would start digoxin -chadsvasc is 3, cont ac with hep gtt--> pt with chronic anemia, d/w heme and ok for AC for now, monitor hgb -echo unremarkable aj: -likely due to sepsis, low bp -cont ivfs, abx, monitor trend -renal following hld: -stable MM: -on chemo per heme/onc
[2017-05-19] MEDS: MEROPENEM 500 MG PUSH 500 MG/10 ML DISP.SYRIN IVPUSH SCH ×2 (12:33→21:19)
--- NOTE | 2017-05-19 13:05 | PN ---
Teaching Attending Note Name of Resident: Rodolfo Wolff ATTENDING PHYSICIAN STATEMENT I saw and evaluated the patient. I reviewed the resident's note and discussed the case with the resident. I agree with the resident's findings and plan as documented. SUBJECTIVE: Patient seen and examined in the ICU. Awake and alert. Denies CP or SOB. Non-specific "ill" feeling. No pressors, but BP marginal. Intake & Output 05/16/17 05/17/17 05/18/17 05/19/17 23:59 23:59 23:59 23:59 Intake Total 1012 1242 Output Total 500 Balance 1012 742 Weight 109 lb 112 lb 9 oz Last Vital Signs Temp Pulse Resp BP Pulse Ox 97.4 F L 116 H 22 99/60 94 L 05/19/17 10:00 05/19/17 10:00 05/19/17 10:00 05/19/17 10:00 05/19/17 09:00 Active Medications Chlorhexidine Gluconate (Hibiclens For Decolonization -) 1 applic TP HS TOMÁS Last Admin: 05/18/17 21:35 Dose: 1 applic Heparin Sodium (Porcine) (Heparin -) 1,000 unit IVPUSH PRN PRN PRN Reason: Heparin Heparin Sodium (Porcine) (Heparin -) 5,000 unit IVPUSH PRN PRN PRN Reason: Heparin HEPARIN SOD,PORK IN 0.45% NACL (Heparin-1/2ns 25,000 Units/500) 25,000 units in 500 mls @ 16 mls/hr IVPB TITR TOMÁS; 800 UNIT/HR PRN Reason: Protocol Last Titration: 05/18/17 19:00 Dose: 800 unit/hr, 16 mls/hr Sodium Chloride (Normal Saline -) 1,000 mls @ 125 mls/hr IV ASDIR TOMÁS Last Admin: 05/18/17 13:06 Dose: 125 mls/hr Meropenem (Merrem (Restricted To Id) -) 500 mg in 10 mls @ 120 mls/hr IVPUSH BID TOMÁS Last Admin: 05/19/17 12:33 Dose: 120 mls/hr Mupirocin (Bactroban Ointment (For Decolonization) -) 1 applic NS BID TOMÁS Stop: 05/23/17 09:59 Last Admin: 05/19/17 10:18 Dose: 1 applic Pantoprazole Sodium (Protonix -) 40 mg PO DAILY TOMÁS Last Admin: 05/19/17 10:18 Dose: 40 mg Gen: Awake and responsive Heart: tachycardic, regular Lung: decreased breath sounds at the bases Abd: soft, nontender Ext: no edema Laboratory Results - last 24 hr 05/18/17 05/18/17 05/18/17 11:30 11:30 13:33 WBC RBC Hgb Hct MCV MCH MCHC RDW Plt Count MPV Absolute Neuts (auto) Absolute Lymphs (auto) Absolute Monos (auto) Absolute Eos (auto) Absolute Basos (auto) Neutrophils % Lymphocytes % PTT (Actin FS) Sodium Potassium Chloride Carbon Dioxide Anion Gap BUN Creatinine Creat Clearance w eGFR Random Glucose Lactic Acid Calcium Phosphorus Magnesium Total Bilirubin AST ALT Alkaline Phosphatase LD Total Total Protein Albumin TSH Free T4 Cortisol AM Sample 16.9 Urine Osmolality 196 L Ur Random Sodium 42 Ur Random Potassium 14.8 Ur Random Chloride 35 Urine Creatinine 16.3 L 05/18/17 05/18/17 05/18/17 13:45 18:52 18:52 WBC RBC Hgb Hct MCV MCH MCHC RDW Plt Count MPV Absolute Neuts (auto) Absolute Lymphs (auto) Absolute Monos (auto) Absolute Eos (auto) Absolute Basos (auto) Neutrophils % Lymphocytes % PTT (Actin FS) 70.4 H D Sodium 128 L Potassium 5.2 H Chloride 100 Carbon Dioxide 12 L Anion Gap 16 BUN 90 H Creatinine 4.7 H Creat Clearance w eGFR Random Glucose 94 Lactic Acid 1.7 Calcium 6.2 L* Phosphorus Magnesium Total Bilirubin AST ALT Alkaline Phosphatase LD Total Total Protein Albumin TSH Free T4 Cortisol AM Sample Urine Osmolality Ur Random Sodium Ur Random Potassium Ur Random Chloride Urine Creatinine 05/19/17 05/19/17 05/19/17 08:20 08:20 08:20 WBC 2.7 L RBC 2.51 L Hgb 7.5 L D Hct 22.8 L MCV 90.5 MCH 30.0 MCHC 33.1 RDW 15.6 Plt Count 181 D MPV 7.7 Absolute Neuts (auto) 0.0 L Absolute Lymphs (auto) 0.9 L Absolute Monos (auto) 1.7 L Absolute Eos (auto) 0.0 Absolute Basos (auto) 0.0 L Neutrophils % No Result Required. Lymphocytes % No Result Required. PTT (Actin FS) 85.7 H Sodium 128 L Potassium 4.9 Chloride 99 Carbon Dioxide 14 L Anion Gap 15 BUN 86 H Creatinine 4.9 H Creat Clearance w eGFR 8.48 Random Glucose 80 Lactic Acid Calcium 6.6 L* Phosphorus 3.8 Magnesium 1.9 Total Bilirubin 0.5 AST 38 H ALT 10 L D Alkaline Phosphatase 58 LD Total 391 H D Total Protein 5.3 L Albumin 1.8 L D TSH 1.30 D Free T4 0.99 Cortisol AM Sample Urine Osmolality Ur Random Sodium Ur Random Potassium Ur Random Chloride Urine Creatinine 05/19/17 08:20 WBC RBC Hgb Hct MCV MCH MCHC RDW Plt Count MPV Absolute Neuts (auto) Absolute Lymphs (auto) Absolute Monos (auto) Absolute Eos (auto) Absolute Basos (auto) Neutrophils % Lymphocytes % PTT (Actin FS) Sodium Potassium Chloride Carbon Dioxide Anion Gap BUN Creatinine Creat Clearance w eGFR Random Glucose Lactic Acid Calcium Phosphorus Magnesium Total Bilirubin AST ALT Alkaline Phosphatase LD Total Total Protein Albumin TSH Free T4 Cancelled Cortisol AM Sample Urine Osmolality Ur Random Sodium Ur Random Potassium Ur Random Chloride Urine Creatinine ASSESSMENT AND PLAN: Low clinical suspicion of PNA Neutropenic Severe Sepsis Acute on Chronic Renal Failure Lactic Acidosis Hyponatremia Hyperkalemia Multiple Myeloma on chemo COPD Hyperlipidemia - broad spectrum antibiotics - f/u cultures - IVF resuscitation - send cortisol levels, TFTs - monitor urine output, creatinine - monitor CBC - continue ICU monitoring Dr Yee Critical care time spent in reviewing chart, evaluating patient and formulating plan 38 min
[2017-05-19] MEDS ORDERED: DIGOXIN 0.5 MG/2 ML AMPUL IVPUSH ONE ×3 (13:41→14:33)
[2017-05-19] MEDS ORDERED: dilTIAZem HCL 50 MG/10 ML - 10 ML VIAL IVPUSH ONE (13:48)
[2017-05-19] MEDS ORDERED: DIGOXIN 0.5 MG/2 ML AMPUL ONE (13:55)
[2017-05-19] MEDS ORDERED: METOPROLOL TARTRATE 5 MG/5 ML VIAL IVPUSH ONE (14:00)
--- NOTE | 2017-05-19 14:04 | PN ---
Physical Exam: SUBJECTIVE: Patient seen and examined No acute events overnight. Patient feels better this morning. Patient went into RVR during the day. BP was 100/60 at the time. OBJECTIVE: Vital Signs Period Temp Pulse Resp BP Sys/Saucedo Pulse Ox Last 24 Hr 97.4 F-98.7 F 108-120 19-24 83-110/50-63 94-94 Constitutional: Yes: Well Nourished, No Distress Eyes: Yes: EOM Intact HENT: Yes: Atraumatic Neck: Yes: Supple, Trachea Midline Cardiovascular: Yes: Tachycardia, S1, S2. No: Murmur Respiratory: Yes: CTA Bilaterally, Diminished Gastrointestinal: Yes: Soft, Abdomen, Obese. No: Tenderness Neurological: Yes: Alert Psychiatric: Yes: Alert Laboratory Results - last 24 hr 05/18/17 05/18/17 05/18/17 11:30 11:30 13:33 WBC RBC Hgb Hct MCV MCH MCHC RDW Plt Count MPV Absolute Neuts (auto) Absolute Lymphs (auto) Absolute Monos (auto) Absolute Eos (auto) Absolute Basos (auto) Neutrophils % Lymphocytes % PTT (Actin FS) Sodium Potassium Chloride Carbon Dioxide Anion Gap BUN Creatinine Creat Clearance w eGFR Random Glucose Lactic Acid Calcium Phosphorus Magnesium Total Bilirubin AST ALT Alkaline Phosphatase LD Total Total Protein Albumin TSH Free T4 Cortisol AM Sample 16.9 Urine Osmolality 196 L Ur Random Sodium 42 Ur Random Potassium 14.8 Ur Random Chloride 35 Urine Creatinine 16.3 L 05/18/17 05/18/17 05/18/17 13:45 18:52 18:52 WBC RBC Hgb Hct MCV MCH MCHC RDW Plt Count MPV Absolute Neuts (auto) Absolute Lymphs (auto) Absolute Monos (auto) Absolute Eos (auto) Absolute Basos (auto) Neutrophils % Lymphocytes % PTT (Actin FS) 70.4 H D Sodium 128 L Potassium 5.2 H Chloride 100 Carbon Dioxide 12 L Anion Gap 16 BUN 90 H Creatinine 4.7 H Creat Clearance w eGFR Random Glucose 94 Lactic Acid 1.7 Calcium 6.2 L* Phosphorus Magnesium Total Bilirubin AST ALT Alkaline Phosphatase LD Total Total Protein Albumin TSH Free T4 Cortisol AM Sample Urine Osmolality Ur Random Sodium Ur Random Potassium Ur Random Chloride Urine Creatinine 05/19/17 05/19/17 05/19/17 08:20 08:20 08:20 WBC 2.7 L RBC 2.51 L Hgb 7.5 L D Hct 22.8 L MCV 90.5 MCH 30.0 MCHC 33.1 RDW 15.6 Plt Count 181 D MPV 7.7 Absolute Neuts (auto) 0.0 L Absolute Lymphs (auto) 0.9 L Absolute Monos (auto) 1.7 L Absolute Eos (auto) 0.0 Absolute Basos (auto) 0.0 L Neutrophils % No Result Required. Lymphocytes % No Result Required. PTT (Actin FS) 85.7 H Sodium 128 L Potassium 4.9 Chloride 99 Carbon Dioxide 14 L Anion Gap 15 BUN 86 H Creatinine 4.9 H Creat Clearance w eGFR 8.48 Random Glucose 80 Lactic Acid Calcium 6.6 L* Phosphorus 3.8 Magnesium 1.9 Total Bilirubin 0.5 AST 38 H ALT 10 L D Alkaline Phosphatase 58 LD Total 391 H D Total Protein 5.3 L Albumin 1.8 L D TSH 1.30 D Free T4 0.99 Cortisol AM Sample Urine Osmolality Ur Random Sodium Ur Random Potassium Ur Random Chloride Urine Creatinine 05/19/17 08:20 WBC RBC Hgb Hct MCV MCH MCHC RDW Plt Count MPV Absolute Neuts (auto) Absolute Lymphs (auto) Absolute Monos (auto) Absolute Eos (auto) Absolute Basos (auto) Neutrophils % Lymphocytes % PTT (Actin FS) Sodium Potassium Chloride Carbon Dioxide Anion Gap BUN Creatinine Creat Clearance w eGFR Random Glucose Lactic Acid Calcium Phosphorus Magnesium Total Bilirubin AST ALT Alkaline Phosphatase LD Total Total Protein Albumin TSH Free T4 Cancelled Cortisol AM Sample Urine Osmolality Ur Random Sodium Ur Random Potassium Ur Random Chloride Urine Creatinine Active Medications Generic Name Dose Route Start Last Admin Trade Name Freq PRN Reason Stop Dose Admin Chlorhexidine Gluconate 1 applic 05/18/17 22:00 05/18/17 21:35 Hibiclens For Decolonization - TP 1 applic HS TOMÁS Administration Heparin Sodium (Porcine) 1,000 unit 05/18/17 05:48 Heparin - IVPUSH PRN PRN Heparin Heparin Sodium (Porcine) 5,000 unit 05/18/17 05:48 Heparin - IVPUSH PRN PRN Heparin HEPARIN SOD,PORK IN 0.45% NACL 25,000 units in 500 mls @ 16 mls/hr 05/18/17 06 :00 05/18/17 19:00 Heparin-1/2ns 25,000 Units/500 IVPB 800 unit/hr TITR TOMÁS 16 mls/hr Protocol Titration 800 UNIT/HR Sodium Chloride 1,000 mls @ 125 mls/hr 05/18/17 13:37 05/18/17 13:06 Normal Saline - IV 125 mls/hr ASDIR TOMÁS Administration Meropenem 500 mg in 10 mls @ 120 mls/hr 05/18/17 13:00 05/19/17 12:33 Merrem (Restricted To Id) - IVPUSH 120 mls/hr BID TOMÁS Administration Mupirocin 1 applic 05/18/17 10:00 05/19/17 10:18 Bactroban Ointment (For Decolonization) - NS 05/23/17 09:59 1 applic BID TOMÁS Administration Pantoprazole Sodium 40 mg 05/18/17 10:00 05/19/17 10:18 Protonix - PO 40 mg DAILY TOMÁS Administration ASSESSMENT/PLAN: 81yF with multiple medical problems including 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 Severe Sepsis/Neutropenia/ possible neutropenic fever-possible lung source given symptoms history and imaging but work up is still in progress. F/u Cultures ID consult appreciated on meropenem as she was previously on cefepime, Continue broad spectrum abx IVF @ 125 cc/hr strict I/Os pressor support PRN Check urine antigens for PNA Trend CBC New onset A fib: now sinus tachycardia-possible A fibb is secondary to sepsis cardiology consult continue heparin gtt per protocol PTT per protocol rate control digoxin if needed since she is hypotensive, 0.25 mg given today check digoxin level in the AM lopressor 5 mg also given F/u TFTs SHANIA: nephrology consult likely prerenal due to volume depletion and sepsis renal/bladder ultrasound avoid nephrotoxic drugs trend Cr Renally dose all meds Hyponatremia: Acute as Na was WNL before discharge continue IVF NS trend BMP not to increase 10meq in 24 hours nephrology consult appreciated Lactic Acidosis: trend lactate IVF resuscitation Diarrhea: Check C diff as she was recently on ABx Hyperkalemia: likely due to SHANIA treated and resolved multiple myeloma: Dr. Bello consulted PPx: started on heparin drip Protonix PT consult FEN: NS @ 125cc/hr correct hyponatremia/as above Puree diet Pt is a DNR. Dispo: Continue ICU level of care Visit type - Emergency Visit Emergency Visit: Yes ED Registration Date: 05/18/17 Care time: The patient presented to the Emergency Department on the above date and was hospitalized for further evaluation of their emergent condition. - New Patient This patient is new to me today: Yes Date on this admission: 05/19/17 - Critical Care Critical Care patient: Yes Total Critical Care Time (in minutes): 40 Critical Care Statement: The care of this patient involved high complexity decision making to prevent further life threatening deterioration of the patient 's condition and/or to evaluate & treat vital organ system(s) failure or risk of failure.
[2017-05-19 14:59] LABS: ANISOCYTOSIS 1+; MACROCYTOSIS 0; PLATELET ESTIMATE NORMAL
[2017-05-19] MEDS: HEPARIN SOD,PORK IN 0.45% NACL 25,000 UNITS/500 ML INFUS.BAG IVPB SCH (15:07)
--- NOTE | 2017-05-19 16:13 | PN ---
Progress Note, Physician Chief Complaint: Again unable to obtain from Ms Fuentes. She says aaron and thank you but will not give specific complaints. Daughter at bedside and says Ms Fuentes is feeling a little better. - Current Medication List Current Medications: Active Medications Chlorhexidine Gluconate (Hibiclens For Decolonization -) 1 applic TP HS [facility] Last Admin: 05/18/17 21:35 Dose: 1 applic Heparin Sodium (Porcine) (Heparin -) 1,000 unit IVPUSH PRN PRN PRN Reason: Heparin Heparin Sodium (Porcine) (Heparin -) 5,000 unit IVPUSH PRN PRN PRN Reason: Heparin HEPARIN SOD,PORK IN 0.45% NACL (Heparin-1/2ns 25,000 Units/500) 25,000 units in 500 mls @ 16 mls/hr IVPB TITR [facility]; 800 UNIT/HR PRN Reason: Protocol Last Admin: 05/19/17 15:07 Dose: 750 unit/hr, 15 mls/hr Sodium Chloride (Normal Saline -) 1,000 mls @ 125 mls/hr IV ASDIR [facility] Last Admin: 05/18/17 13:06 Dose: 125 mls/hr Meropenem (Merrem (Restricted To Id) -) 500 mg in 10 mls @ 120 mls/hr IVPUSH BID [facility] Last Admin: 05/19/17 12:33 Dose: 120 mls/hr Mupirocin (Bactroban Ointment (For Decolonization) -) 1 applic NS BID [facility] Stop: 05/23/17 09:59 Last Admin: 05/19/17 10:18 Dose: 1 applic Pantoprazole Sodium (Protonix -) 40 mg PO DAILY [facility] Last Admin: 05/19/17 10:18 Dose: 40 mg - Objective Vital Signs: Vital Signs Temperature 36.1 C L 05/19/17 14:00 Pulse Rate 111 H 05/19/17 15:08 Respiratory Rate 22 05/19/17 14:00 Blood Pressure 106/66 05/19/17 14:00 O2 Sat by Pulse Oximetry (%) 94 L 05/19/17 09:00 Constitutional: Yes: No Distress, Obese Cardiovascular: Yes: Tachycardia. No: Gallop, Murmur, Rub Respiratory: Yes: Regular, CTA Bilaterally, On Nasal O2. No: Rales, Rhonchi, Wheezes Gastrointestinal: Yes: Normal Bowel Sounds, Soft. No: Distention, Tenderness Extremities: Yes: WNL Edema: No Labs: CBC, BMP 05/19/17 08:20 05/19/17 08:20 INR, PTT INR 1.09 (0.82-1.09) 05/18/17 01:17 Problem List - Problems (1) Septic shock Code(s): A41.9 - SEPSIS, UNSPECIFIED ORGANISM; R65.21 - SEVERE SEPSIS WITH SEPTIC SHOCK (2) Fever and neutropenia Code(s): D70.9 - NEUTROPENIA, UNSPECIFIED; R50.81 - FEVER PRESENTING WITH CONDITIONS CLASSIFIED ELSEWHERE (3) Atrial fibrillation with RVR Code(s): I48.91 - UNSPECIFIED ATRIAL FIBRILLATION (4) Acute renal failure Code(s): N17.9 - ACUTE KIDNEY FAILURE, UNSPECIFIED (5) Metabolic encephalopathy Code(s): G93.41 - METABOLIC ENCEPHALOPATHY (6) Hyponatremia Code(s): E87.1 - HYPO-OSMOLALITY AND HYPONATREMIA (7) Hypocalcemia Code(s): E83.51 - HYPOCALCEMIA (8) Multiple myeloma Code(s): C90.00 - MULTIPLE MYELOMA NOT HAVING ACHIEVED REMISSION Assessment/Plan (1) Septic shock Assessment/Plan: -appreciate ID assistance -continue merrem -current cultures negative -possible atypical infection -continue IVF Code(s): A41.9 - SEPSIS, UNSPECIFIED ORGANISM; R65.21 - SEVERE SEPSIS WITH SEPTIC SHOCK (2) Fever and neutropenia Assessment/Plan: -ANC is still 0 -continue antibiotics Code(s): D70.9 - NEUTROPENIA, UNSPECIFIED; R50.81 - FEVER PRESENTING WITH CONDITIONS CLASSIFIED ELSEWHERE (3) Atrial fibrillation with RVR Assessment/Plan: -now in sinus rhythm, but tachycardic -case d/w Dr Bowie -treat neutropenic fever Code(s): I48.91 - UNSPECIFIED ATRIAL FIBRILLATION (4) Acute renal failure Assessment/Plan: -secondary to sepsis, but may have chronic worsening secondary to MM -concerning since patient with multiple injuries to her kidneys -case d/w Dr Soto -continue hydration, monitor for improvement Code(s): N17.9 - ACUTE KIDNEY FAILURE, UNSPECIFIED (5) Metabolic encephalopathy Assessment/Plan: -secondary to septic shock -unchanged -as above Code(s): G93.41 - METABOLIC ENCEPHALOPATHY (6) Hyponatremia Assessment/Plan: -improving with hydration Code(s): E87.1 - HYPO-OSMOLALITY AND HYPONATREMIA (7) Hypocalcemia Assessment/Plan: -monitor, may need replacement Code(s): E83.51 - HYPOCALCEMIA (8) Multiple myeloma Assessment/Plan: -oncology following Code(s): C90.00 - MULTIPLE MYELOMA NOT HAVING ACHIEVED REMISSION 43 minutes spent in critical care time with this patient
--- NOTE | 2017-05-19 16:26 | PN ---
Progress Note, Physician History of Present Illness: Pt seen and examined at bedside. She is awake and appears more comfortable than she was yesterday. - Current Medication List Current Medications: Active Medications Chlorhexidine Gluconate (Hibiclens For Decolonization -) 1 applic TP HS [facility] Last Admin: 05/18/17 21:35 Dose: 1 applic Heparin Sodium (Porcine) (Heparin -) 1,000 unit IVPUSH PRN PRN PRN Reason: Heparin Heparin Sodium (Porcine) (Heparin -) 5,000 unit IVPUSH PRN PRN PRN Reason: Heparin HEPARIN SOD,PORK IN 0.45% NACL (Heparin-1/2ns 25,000 Units/500) 25,000 units in 500 mls @ 16 mls/hr IVPB TITR [facility]; 800 UNIT/HR PRN Reason: Protocol Last Admin: 05/19/17 15:07 Dose: 700 unit/hr, 14 mls/hr Sodium Chloride (Normal Saline -) 1,000 mls @ 125 mls/hr IV ASDIR [facility] Last Admin: 05/18/17 13:06 Dose: 125 mls/hr Meropenem (Merrem (Restricted To Id) -) 500 mg in 10 mls @ 120 mls/hr IVPUSH BID [facility] Last Admin: 05/19/17 12:33 Dose: 120 mls/hr Mupirocin (Bactroban Ointment (For Decolonization) -) 1 applic NS BID [facility] Stop: 05/23/17 09:59 Last Admin: 05/19/17 10:18 Dose: 1 applic Pantoprazole Sodium (Protonix -) 40 mg PO DAILY [facility] Last Admin: 05/19/17 10:18 Dose: 40 mg - Objective Vital Signs: Vital Signs Temperature 97 F L 05/19/17 14:00 Pulse Rate 112 H 05/19/17 16:00 Respiratory Rate 24 05/19/17 16:00 Blood Pressure 104/60 05/19/17 16:00 O2 Sat by Pulse Oximetry (%) 94 L 05/19/17 09:00 Constitutional: Yes: Calm Eyes: Yes: Conjunctiva Clear HENT: Yes: Atraumatic Neck: Yes: Supple Cardiovascular: Yes: S1, S2 Respiratory: Yes: CTA Bilaterally Gastrointestinal: Yes: Soft Genitourinary: Yes: Incontinence Musculoskeletal: Yes: Muscle Weakness Edema: No Neurological: Yes: Oriented Psychiatric: Yes: Oriented Labs: CBC, BMP 05/19/17 08:20 05/19/17 08:20 INR, PTT INR 1.09 (0.82-1.09) 05/18/17 01:17 Problem List - Problems (1) Atrial fibrillation with RVR Code(s): I48.91 - UNSPECIFIED ATRIAL FIBRILLATION (2) Fever and neutropenia Code(s): D70.9 - NEUTROPENIA, UNSPECIFIED; R50.81 - FEVER PRESENTING WITH CONDITIONS CLASSIFIED ELSEWHERE (3) Hyperkalemia, diminished renal excretion Code(s): E87.5 - HYPERKALEMIA (4) Hyponatremia Code(s): E87.1 - HYPO-OSMOLALITY AND HYPONATREMIA (5) Multiple myeloma Code(s): C90.00 - MULTIPLE MYELOMA NOT HAVING ACHIEVED REMISSION (6) Sepsis Code(s): A41.9 - SEPSIS, UNSPECIFIED ORGANISM (7) Multiple myeloma Code(s): C90.00 - MULTIPLE MYELOMA NOT HAVING ACHIEVED REMISSION Qualifiers: Assessment/Plan Current Medications Generic Name Dose Route Start Last Admin Trade Name Freq PRN Reason Stop Dose Admin Chlorhexidine Gluconate 1 applic 05/18/17 22:00 05/18/17 21:35 Hibiclens For Decolonization - TP 1 applic HS [facility] Administration Heparin Sodium (Porcine) 1,000 unit 05/18/17 05:48 Heparin - IVPUSH PRN PRN Heparin Heparin Sodium (Porcine) 5,000 unit 05/18/17 05:48 Heparin - IVPUSH PRN PRN Heparin HEPARIN SOD,PORK IN 0.45% NACL 25,000 units in 500 mls @ 16 mls/hr 05/18/17 06 :00 05/19/17 15:07 Heparin-1/2ns 25,000 Units/500 IVPB 700 unit/hr TITR [facility] 14 mls/hr Protocol Administration 800 UNIT/HR Sodium Chloride 1,000 mls @ 125 mls/hr 05/18/17 13:37 05/18/17 13:06 Normal Saline - IV 125 mls/hr ASDIR [facility] Administration Meropenem 500 mg in 10 mls @ 120 mls/hr 05/18/17 13:00 05/19/17 12:33 Merrem (Restricted To Id) - IVPUSH 120 mls/hr BID [facility] Administration Mupirocin 1 applic 05/18/17 10:00 05/19/17 10:18 Bactroban Ointment (For Decolonization) - NS 05/23/17 09:59 1 applic BID [facility] Administration Pantoprazole Sodium 40 mg 05/18/17 10:00 05/19/17 10:18 Protonix - PO 40 mg DAILY [facility] Administration Impression 1. SHANIA 2. sepsis 3. anemia 4. CKD 5. multiple myeloma 6. malnutrition 7. proteinuria 8. possible hepatocellular disease seen on ultrasound 9. interstitial lung disease 10. hyponatremia 11. hyperkalemia Plan - cont fluids - monitor renal function - follow cultures - monitor bp - pt has had multiple episodes of renal failure and likely did have renal involvement from myeloma - renal ultrasound reviewed - monitor urine output - cont abx per ID - will follow Dr Soto
[2017-05-19 17:26] LABS: URINE APPEARANCE SLCLOUDY; URINE BILIRUBIN NEGATIVE (NEGATIVE); URINE BLOOD 3+ (NEGATIVE); URINE COLOR LTYELLOW; URINE GLUCOSE (UA) NEGATIVE (NEGATIVE); URINE KETONE NEGATIVE (NEGATIVE); URINE LEUK ESTERASE NEGATIVE (NEGATIVE); URINE NITRITE NEGATIVE (NEGATIVE); URINE UROBILINOGEN NEGATIVE mg/dL (0.2-1.0)
[2017-05-19 18:03] LABS: URINE PROTEIN 1+ (NEGATIVE)
[2017-05-19 18:25] LABS: EPI CELLS RARE /HPF (FEW); URINE BACTERIA RARE /hpf (NONE SEEN)
[2017-05-19] MEDS: CHLORHEXIDINE GLUCONATE 4% CLEANSER FOR DECOLONIZATION TP SCH (21:16)
[2017-05-20] MEDS: ALBUTEROL SO4 2.5/IPRATROPIUM 0.5 INH SOL 3 ML VIAL.NEB. NEB PRN ×2 (01:35→10:15)
[2017-05-20] MEDS ORDERED: AMIODARONE HCL INJECTION 450 MG in DEXTROSE 5%-WATER - 241 ML IVPB SCH (04:15)
[2017-05-20] MEDS ORDERED: AMIODARONE HCL INJECTION 150 MG in DEXTROSE 5%-WATER - 97 ML IVPB ONE (04:15)
[2017-05-20] MEDS ORDERED: AMIODARONE IN DEXTROSE,ISO-OSM 360 MG/200 ML BAG IVPB SCH (04:30)
[2017-05-20] MEDS: HEPARIN SOD,PORK IN 0.45% NACL 25,000 UNITS/500 ML INFUS.BAG IVPB SCH (06:20)
--- NOTE | 2017-05-20 07:19 | PN ---
Progress Note, Physician Chief Complaint: ID Merorpenem day 2 for sepsis syndrome Tachypneic laboring to breath this morning given nebulizer treatment and tachycardic - Current Medication List Current Medications: Active Medications Albuterol/Ipratropium (Duoneb -) 1 amp NEB Q6H PRN PRN Reason: SHORTNESS OF BREATH Last Admin: 05/20/17 01:35 Dose: 1 amp Chlorhexidine Gluconate (Hibiclens For Decolonization -) 1 applic TP HS [facility] Last Admin: 05/19/17 21:16 Dose: 1 applic Heparin Sodium (Porcine) (Heparin -) 1,000 unit IVPUSH PRN PRN PRN Reason: Heparin Heparin Sodium (Porcine) (Heparin -) 5,000 unit IVPUSH PRN PRN PRN Reason: Heparin HEPARIN SOD,PORK IN 0.45% NACL (Heparin-1/2ns 25,000 Units/500) 25,000 units in 500 mls @ 16 mls/hr IVPB TITR [facility]; 800 UNIT/HR PRN Reason: Protocol Last Admin: 05/20/17 06:20 Dose: Not Given Sodium Chloride (Normal Saline -) 1,000 mls @ 125 mls/hr IV ASDIR [facility] Last Admin: 05/18/17 13:06 Dose: 125 mls/hr Meropenem (Merrem (Restricted To Id) -) 500 mg in 10 mls @ 120 mls/hr IVPUSH BID [facility] Last Admin: 05/19/17 21:19 Dose: 120 mls/hr Amiodarone HCl/Dextrose (Nexterone 360 Mg/200 Ml Bag) 360 mg in 200 mls @ 16.667 mls/hr IVPB TITR [facility]; 0.5 MG/MIN PRN Reason: Protocol Last Admin: 05/20/17 04:30 Dose: 0.5 mg/min, 16.667 mls/hr Mupirocin (Bactroban Ointment (For Decolonization) -) 1 applic NS BID [facility] Stop: 05/23/17 09:59 Last Admin: 05/19/17 21:16 Dose: 1 applic Pantoprazole Sodium (Protonix -) 40 mg PO DAILY [facility] Last Admin: 05/19/17 10:18 Dose: 40 mg - Objective Vital Signs: Vital Signs Temperature 97.9 F 05/20/17 02:00 Pulse Rate 109 H 12/23/17 06:00 Respiratory Rate 23 05/20/17 06:00 Blood Pressure 92/47 05/20/17 06:00 O2 Sat by Pulse Oximetry (%) 94 L 05/19/17 21:00 Constitutional: Yes: Moderate Distress Cardiovascular: Yes: Tachycardia, S1, S2 Respiratory: Yes: WNL, Regular, CTA Bilaterally, Rhonchi, Other (Inspiratory wheezing) Gastrointestinal: Yes: WNL, Normal Bowel Sounds, Soft. No: Tenderness, Tenderness, Rebound Edema: No Labs: CBC, BMP 05/19/17 08:20 05/19/17 08:20 INR, PTT INR 1.09 (0.82-1.09) 05/18/17 01:17 Problem List - Problems (1) Sepsis affecting skin Code(s): A41.9 - SEPSIS, UNSPECIFIED ORGANISM (2) Sepsis Code(s): A41.9 - SEPSIS, UNSPECIFIED ORGANISM (3) Fever and neutropenia Code(s): D70.9 - NEUTROPENIA, UNSPECIFIED; R50.81 - FEVER PRESENTING WITH CONDITIONS CLASSIFIED ELSEWHERE (4) Multiple myeloma Code(s): C90.00 - MULTIPLE MYELOMA NOT HAVING ACHIEVED REMISSION (5) Acute renal failure Code(s): N17.9 - ACUTE KIDNEY FAILURE, UNSPECIFIED Assessment/Plan Microbiology 05/18/17 05:30 Nasopharyngeal Swab Influenza Types A,B Antigen (ROSALINDA) - Final 05/18/17 05:30 Nasopharyngeal Swab - Final 05/18/17 00:15 Urine - Urine Farrar Urine Culture - Final NO GROWTH OBTAINED 05/18/17 01:17 Blood - Peripheral Venous Blood Culture - Preliminary NO GROWTH OBTAINED AFTER 48 HOURS, INCUBATION TO CONTINUE FOR 3 DAYS. 05/18/17 01:17 Blood - Peripheral Venous Blood Culture - Preliminary NO GROWTH OBTAINED AFTER 48 HOURS, INCUBATION TO CONTINUE FOR 3 DAYS. 05/18/17 01:17 Blood - Peripheral Venous Blood Culture - Preliminary NO GROWTH OBTAINED AFTER 24 HOURS, INCUBATION TO CONTINUE FOR 4 DAYS. 05/18/17 01:17 Blood - Peripheral Venous Blood Culture - Preliminary NO GROWTH OBTAINED AFTER 24 HOURS, INCUBATION TO CONTINUE FOR 4 DAYS. Laboratory Tests 05/18/17 05/19/17 05/19/17 05:24 08:20 08:20 WBC 2.7 L Hgb 7.5 L D Hct 22.8 L Plt Count 181 D BUN 86 H Creatinine 4.9 H Creat Clearance w eGFR 8.48 Lactic Acid 2.5 H* AST 38 H ALT 10 L D LD Total 391 H D Beta-(1,3)-D-Glucan 05/19/17 08:20 WBC Hgb Hct Plt Count BUN Creatinine Creat Clearance w eGFR Lactic Acid AST ALT LD Total Beta-(1,3)-D-Glucan Pending Assessment Sepsis syndrome source unclear 103 on admission hypotensive thought to have possible PNA with "ground glass appearance" Multiple myeloma with mets Acute renal failure Labored breathing ? congestive heart failure Neutropenia on admission Plan Continue Meropenem for a few more days through the weekend Consider dose of Shyanne Christianson MD
[2017-05-20] MEDS: SODIUM CHLORIDE 1,000 ML IV SCH (09:00)
[2017-05-20] MEDS ORDERED: PT OWN MED DRAWER 7, Y5N ONE ×2 (09:28→21:22)
[2017-05-20] MEDS: MEROPENEM 500 MG PUSH 500 MG/10 ML DISP.SYRIN IVPUSH SCH ×2 (09:31→21:23)
[2017-05-20] MEDS: PANTOPRAZOLE 40 MG TABLET (FP) PO SCH ×2 (09:32→09:37)
[2017-05-20] MEDS: MUPIROCIN 2% TOPICAL OINTMENT FOR DECOLONIZATION NS SCH ×2 (09:32→21:23)
--- NOTE | 2017-05-20 09:57 | PN ---
Progress Note, Physician Chief Complaint: septic shock History of Present Illness: denies sob. ditto palpitations, cp, leg swelling - Current Medication List Current Medications: Active Medications Albuterol/Ipratropium (Duoneb -) 1 amp NEB Q6H PRN PRN Reason: SHORTNESS OF BREATH Last Admin: 05/20/17 01:35 Dose: 1 amp Chlorhexidine Gluconate (Hibiclens For Decolonization -) 1 applic TP HS [facility] Last Admin: 05/19/17 21:16 Dose: 1 applic Heparin Sodium (Porcine) (Heparin -) 1,000 unit IVPUSH PRN PRN PRN Reason: Heparin Heparin Sodium (Porcine) (Heparin -) 5,000 unit IVPUSH PRN PRN PRN Reason: Heparin HEPARIN SOD,PORK IN 0.45% NACL (Heparin-1/2ns 25,000 Units/500) 25,000 units in 500 mls @ 16 mls/hr IVPB TITR [facility]; 800 UNIT/HR PRN Reason: Protocol Last Admin: 05/20/17 06:20 Dose: Not Given Sodium Chloride (Normal Saline -) 1,000 mls @ 125 mls/hr IV ASDIR [facility] Last Admin: 05/20/17 09:00 Dose: 125 mls/hr Meropenem (Merrem (Restricted To Id) -) 500 mg in 10 mls @ 120 mls/hr IVPUSH BID [facility] Last Admin: 05/20/17 09:31 Dose: 120 mls/hr Amiodarone HCl/Dextrose (Nexterone 360 Mg/200 Ml Bag) 360 mg in 200 mls @ 16.667 mls/hr IVPB TITR [facility]; 0.5 MG/MIN PRN Reason: Protocol Last Admin: 05/20/17 04:30 Dose: 0.5 mg/min, 16.667 mls/hr Mupirocin (Bactroban Ointment (For Decolonization) -) 1 applic NS BID [facility] Stop: 05/23/17 09:59 Last Admin: 05/20/17 09:32 Dose: 1 applic Pantoprazole Sodium (Protonix -) 40 mg PO DAILY [facility] Last Admin: 05/20/17 09:37 Dose: Not Given - Objective Vital Signs: Vital Signs Temperature 97.8 F 05/20/17 06:00 Pulse Rate 109 H 05/20/17 06:00 Respiratory Rate 23 05/20/17 06:00 Blood Pressure 92/47 05/20/17 06:00 O2 Sat by Pulse Oximetry (%) 100 05/20/17 09:00 Constitutional: Yes: No Distress, Calm, Obese Cardiovascular: Yes: Regular Rate and Rhythm, S1. No: JVD (very tds exam), Gallop, Murmur Respiratory: Yes: Accessory Muscle Use, Wheezes (diffusely). No: Rales Extremities: No: Cold Neurological: Yes: Alert. No: Seizure Psychiatric: No: Agitated Labs: CBC, BMP 05/19/17 08:20 05/19/17 08:20 INR, PTT INR 1.09 (0.82-1.09) 05/18/17 01:17 - ....Imaging EKG: Other (tele: sinus tach, brief runs SVT) Assessment/Plan echo 02/2017: nl lv/rv, mild mr/tr, nl rvsp echo 04/2017: nl lv/rv, mild mr ct chest: b/l effs, ILD ecg 05/18/17: afib with rvr, nl qtc, no ischemic changes cxr 05/19: incr pulm and pleural changes (images not available for review) a/p: 81 f hx MM, hld, here with sepsis. 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 source (PNA?)--ID notes appreciated -cont abx per ID -cont ivfs to maintain bp, so far not requiring pressors -infection w/u in progress -supportive care per ICU team as doing -chemo per onc -bp remains borderline (80s-100s)--continuing fluid for now (may need to stop if cxr appears wet) -will plan levophed if MAP persists <60-65, lata if need to stop ivf (d/w'd dr contreras critical care) acute resp distress: -pt with signif tachypnea, using resp muscles, + audible wheezing -dtr reports noticing her choke on piece of food last night, which is when sx's began -cxr yest worsening "pulm and pleural changes", image not available -stat CXR ordered -d/w crit care: suppl O2 as doing for now (oxygenating well) -low threshold for IV lasix if cxr appears congested (continuing IVF for now) new onset afib, brief PSVT runs: -occurred here in setting of sepsis -rate improved after ivfs/abx--> converted to sinus -current tele with sinus tach and frequent brief runs PSVT -stop amiodarone (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
[2017-05-20 10:35] LABS: HEMATOCRIT 28.7 % (32.4-45.2); HEMOGLOBIN 9.2 GM/dL (10.7-15.3); MCH 29.7 pg (25.7-33.7); MCHC 32.1 g/dl (32.0-36.0); MEAN CELL VOLUME 92.5 fl (80-96); MEAN PLT VOLUME 7.8 fl (7.5-11.1); PLATELET COUNT 213 K/MM3 (134-434); RDW 15.7 % (11.6-15.6); WHITE BLOOD COUNT 3.5 K/mm3 (4.0-10.0)
--- NOTE | 2017-05-20 11:13 | PN ---
Progress Note (short form) - Note Progress Note: RENAL Pt is awake and alert tachypneic and with wheezing Last Vital Signs Temp Pulse Resp BP Pulse Ox 97.2 F L 108 H 25 H 105/53 100 05/20/17 10:00 05/20/17 10:00 05/20/17 10:00 05/20/17 10:00 05/20/17 09:00 lungs +wheezing cvs s1s2 rr abd soft ext no edema neuro a+ox3 CBC, BMP 05/20/17 09:50 Current Medications Generic Name Dose Route Start Last Admin Trade Name Freq PRN Reason Stop Dose Admin Albuterol/Ipratropium 1 amp 05/20/17 00:56 05/20/17 10:15 Duoneb - NEB 1 amp Q6H PRN Administration SHORTNESS OF BREATH Chlorhexidine Gluconate 1 applic 05/18/17 22:00 05/19/17 21:16 Hibiclens For Decolonization - TP 1 applic HS [facility] Administration Heparin Sodium (Porcine) 1,000 unit 05/18/17 05:48 Heparin - IVPUSH PRN PRN Heparin Heparin Sodium (Porcine) 5,000 unit 05/18/17 05:48 Heparin - IVPUSH PRN PRN Heparin HEPARIN SOD,PORK IN 0.45% NACL 25,000 units in 500 mls @ 16 mls/hr 05/18/17 06 :00 05/20/17 06:20 Heparin-1/2ns 25,000 Units/500 IVPB Not Given TITR [facility] Protocol 800 UNIT/HR Sodium Chloride 1,000 mls @ 125 mls/hr 05/18/17 13:37 05/20/17 09:00 Normal Saline - IV 125 mls/hr ASDIR [facility] Administration Meropenem 500 mg in 10 mls @ 120 mls/hr 05/18/17 13:00 05/20/17 09:31 Merrem (Restricted To Id) - IVPUSH 120 mls/hr BID [facility] Administration Mupirocin 1 applic 05/18/17 10:00 05/20/17 09:32 Bactroban Ointment (For Decolonization) - NS 05/23/17 09:59 1 applic BID [facility] Administration Pantoprazole Sodium 40 mg 05/18/17 10:00 05/20/17 09:37 Protonix - PO Not Given DAILY [facility] Impression 1. SHANIA 2. sepsis 3. anemia 4. CKD 5. multiple myeloma 6. malnutrition 7. proteinuria 8. possible hepatocellular disease seen on ultrasound 9. interstitial lung disease 10. hyponatremia 11. hyperkalemia Plan - would dc fluids - monitor renal function - follow cultures - monitor bp - trial of lasix and possibly dialysis if daughter agrees -await todays labs - monitor urine output - cont abx per ID MV
[2017-05-20] MEDS ORDERED: FUROSEMIDE 40 MG/4 ML INJECTABLE VIAL IVPUSH ONE (11:25)
--- NOTE | 2017-05-20 11:26 | PN ---
Progress Note (short form) - Note Progress Note: PULMONARY/CCM Pt seen and examined in the ICU. Tachypneic with wheezing. CXR this AM worse with increasing congestion and effusions. Last Vital Signs Temp Pulse Resp BP Pulse Ox 97.2 F L 108 H 25 H 105/53 100 05/20/17 10:00 05/20/17 10:00 05/20/17 10:00 05/20/17 10:00 05/20/17 09:00 Intake & Output 05/17/17 05/18/17 05/19/17 05/20/17 23:59 23:59 23:59 23:59 Intake Total 1012 3042 Output Total 1000 200 Balance 1012 2042 -200 Weight 49.442 kg 51.057 kg 54.233 kg Gen: tachypneic at rest Heart: tachycardic, regular Lung: bilateral rhonchi, wheezes Abd: soft, nontender Ext: + edema CBC, BMP 05/20/17 09:50 Active Medications Albuterol/Ipratropium (Duoneb -) 1 amp NEB Q6H PRN PRN Reason: SHORTNESS OF BREATH Last Admin: 05/20/17 10:15 Dose: 1 amp Chlorhexidine Gluconate (Hibiclens For Decolonization -) 1 applic TP HS [facility] Last Admin: 05/19/17 21:16 Dose: 1 applic Heparin Sodium (Porcine) (Heparin -) 1,000 unit IVPUSH PRN PRN PRN Reason: Heparin Heparin Sodium (Porcine) (Heparin -) 5,000 unit IVPUSH PRN PRN PRN Reason: Heparin HEPARIN SOD,PORK IN 0.45% NACL (Heparin-1/2ns 25,000 Units/500) 25,000 units in 500 mls @ 16 mls/hr IVPB TITR [facility]; 800 UNIT/HR PRN Reason: Protocol Last Admin: 05/20/17 06:20 Dose: Not Given Meropenem (Merrem (Restricted To Id) -) 500 mg in 10 mls @ 120 mls/hr IVPUSH BID [facility] Last Admin: 05/20/17 09:31 Dose: 120 mls/hr Mupirocin (Bactroban Ointment (For Decolonization) -) 1 applic NS BID [facility] Stop: 05/23/17 09:59 Last Admin: 05/20/17 09:32 Dose: 1 applic Pantoprazole Sodium (Protonix -) 40 mg PO DAILY [facility] Last Admin: 05/20/17 09:37 Dose: Not Given A/P r/o Pneumonia Neutropenic Severe Sepsis Acute on Chronic Renal Failure Lactic Acidosis Hyponatremia Hyperkalemia Multiple Myeloma on chemo COPD Hyperlipidemia - continue broad spectrum antibiotics - f/u cultures - d/c IVF - lasix today - will start empiric steroids - atrovent nebs, hold albuterol given tachycardia - monitor urine output, creatinine - monitor CBC - continue ICU monitoring critical care time spent in reviewing chart, evaluating patient and formulating plan 35min
[2017-05-20 11:36] LABS: ALBUMIN 1.8 g/dl (3.4-5.0); ANION GAP 16 (8-16); BILIRUBIN,TOTAL 0.4 mg/dL (0.2-1.0); BLOOD UREA NITROGEN 85 mg/dL (7-18); CHLORIDE 99 mmol/L (98-107); CO2 13 mmol/L (21-32); CREATININE 5.1 mg/dL (0.55-1.02); GLUCOSE,RANDOM 228 mg/dL (74-106); MAGNESIUM 1.9 mg/dL (1.8-2.4); PHOSPHOROUS 4.6 mg/dL (2.5-4.9); POTASSIUM 4.7 mmol/L (3.5-5.1); SGOT/AST 67 U/L (15-37); SGPT/ALT 13 U/L (12-78); SODIUM 128 mmol/L (136-145); TOT PROT 5.5 g/dl (6.4-8.2)
[2017-05-20 11:48] LABS: ALK PHOS 59 U/L (45-117)
[2017-05-20] MEDS: methylPREDNISolone NA SUCC 125 MG/2 ML VIAL IVPUSH SCH ×2 (12:03→17:54)
[2017-05-20 12:29] LABS: CALCIUM 6.6 mg/dL (8.5-10.1)
[2017-05-20 13:35] LABS: PLATELET ESTIMATE ADEQUATE
--- NOTE | 2017-05-20 14:09 | PN ---
Progress Note (short form) - Note Progress Note: Denies any pain No fever O/E Has laboured breathing with expiratory wheezing Heart irregular Lungs few scattered rales and rhonchi+ Also has b/l fine LL rales Abd soft Ext no edema Vital Signs Period Temp Pulse Resp BP Sys/Saucedo Pulse Ox Last 24 Hr 97.2 F-97.9 F 108-144 19-32 89-109/47-74 94-100 Current Medications Chlorhexidine Gluconate (Hibiclens For Decolonization -) 1 applic TP HS TOMÁS Last Admin: 05/19/17 21:16 Dose: 1 applic Heparin Sodium (Porcine) (Heparin -) 1,000 unit IVPUSH PRN PRN PRN Reason: Heparin Heparin Sodium (Porcine) (Heparin -) 5,000 unit IVPUSH PRN PRN PRN Reason: Heparin HEPARIN SOD,PORK IN 0.45% NACL (Heparin-1/2ns 25,000 Units/500) 25,000 units in 500 mls @ 16 mls/hr IVPB TITR TOMÁS; 800 UNIT/HR PRN Reason: Protocol Last Admin: 05/20/17 06:20 Dose: Not Given Meropenem (Merrem (Restricted To Id) -) 500 mg in 10 mls @ 120 mls/hr IVPUSH BID TOMÁS Last Admin: 05/20/17 09:31 Dose: 120 mls/hr Ipratropium [place] (Atrovent 0.02% Nebulizer -) 1 amp NEB QIDR TOMÁS Methylprednisolone Sodium Succinate (Solu-Medrol -) 60 mg IVPUSH Q8H-IV TOMÁS Last Admin: 05/20/17 12:03 Dose: 65 mg Mupirocin (Bactroban Ointment (For Decolonization) -) 1 applic NS BID TOMÁS Stop: 05/23/17 09:59 Last Admin: 05/20/17 09:32 Dose: 1 applic Pantoprazole Sodium (Protonix -) 40 mg PO DAILY TOMÁS Last Admin: 05/20/17 09:37 Dose: Not Given Laboratory Results - last 24 hr 05/18/17 05/18/17 05/18/17 01:17 01:17 01:17 WBC RBC Hgb Hct MCV MCH MCHC RDW Plt Count MPV Total Counted Neutrophils % Neutrophils % (Manual) Band Neutrophils % Lymphocytes % Lymphocytes % (Manual) Monocytes % (Manual) Eosinophils % (Manual) Basophils % (Manual) Myelocytes % (Man) Metamyelocytes Hypochromia Platelet Estimate Polychromasia Poikilocytosis Anisocytosis Microcytosis Macrocytosis PTT (Actin FS) VBG pH 7.40 POC VBG pCO2 29.9 L D POC VBG pO2 39.2 D Mixed VBG HCO3 18.2 L Sodium Potassium Chloride Carbon Dioxide Anion Gap BUN Creatinine Creat Clearance w eGFR Random Glucose Lactic Acid 1.5 Calcium Phosphorus Magnesium Total Bilirubin AST ALT Alkaline Phosphatase Total Protein Albumin Urine Color Urine Appearance Urine pH Ur Specific [place] Urine Protein Urine Glucose (UA) Urine Ketones Urine Blood Urine Nitrite Urine Bilirubin Urine Urobilinogen Ur Leukocyte Esterase Urine WBC (Auto) Urine RBC (Auto) Ur Epithelial Cells Urine Bacteria Ur Random Sodium Ur Random Potassium Ur Random Chloride Urine Creatinine Stool Occult Blood Digoxin Blood Type O POSITIVE Antibody Screen Negative Crossmatch See Detail 05/19/17 05/19/17 05/19/17 08:20 08:20 15:30 WBC RBC Hgb Hct MCV MCH MCHC RDW Plt Count MPV Total Counted Neutrophils % Neutrophils % (Manual) 34.4 L D Band Neutrophils % 0.0 Lymphocytes % Lymphocytes % (Manual) 24.2 D Monocytes % (Manual) 38 H* Eosinophils % (Manual) 1.0 D Basophils % (Manual) 0.0 Myelocytes % (Man) 0 D Metamyelocytes 0 D Hypochromia 0 Platelet Estimate Normal Polychromasia 0 Poikilocytosis 0 Anisocytosis 1+ Microcytosis 1+ Macrocytosis 0 PTT (Actin FS) VBG pH POC VBG pCO2 POC VBG pO2 Mixed VBG HCO3 Sodium Potassium Chloride Carbon Dioxide Anion Gap BUN Creatinine Creat Clearance w eGFR Random Glucose Lactic Acid Calcium Phosphorus Magnesium Total Bilirubin AST ALT Alkaline Phosphatase Total Protein Albumin Urine Color Urine Appearance Urine pH Ur Specific [place] Urine Protein Urine Glucose (UA) Urine Ketones Urine Blood Urine Nitrite Urine Bilirubin Urine Urobilinogen Ur Leukocyte Esterase Urine WBC (Auto) Urine RBC (Auto) Ur Epithelial Cells Urine Bacteria Ur Random Sodium 54 Ur Random Potassium 9.3 Ur Random Chloride 48 Urine Creatinine Stool Occult Blood Digoxin 1.0376 Blood Type Antibody Screen Crossmatch 05/19/17 05/19/17 05/19/17 15:30 15:30 16:00 WBC RBC Hgb Hct MCV MCH MCHC RDW Plt Count MPV Total Counted Neutrophils % Neutrophils % (Manual) Band Neutrophils % Lymphocytes % Lymphocytes % (Manual) Monocytes % (Manual) Eosinophils % (Manual) Basophils % (Manual) Myelocytes % (Man) Metamyelocytes Hypochromia Platelet Estimate Polychromasia Poikilocytosis Anisocytosis Microcytosis Macrocytosis PTT (Actin FS) 76.8 H VBG pH POC VBG pCO2 POC VBG pO2 Mixed VBG HCO3 Sodium Potassium Chloride Carbon Dioxide Anion Gap BUN Creatinine Creat Clearance w eGFR Random Glucose Lactic Acid Calcium Phosphorus Magnesium Total Bilirubin AST ALT Alkaline Phosphatase Total Protein Albumin Urine Color Ltyellow Urine Appearance Slcloudy Urine pH 6.0 Ur Specific [place] 1.006 Urine Protein 1+ H Urine Glucose (UA) Negative Urine Ketones Negative Urine Blood 3+ H Urine Nitrite Negative Urine Bilirubin Negative Urine Urobilinogen Negative Ur Leukocyte Esterase Trace H Urine WBC (Auto) 2 Urine RBC (Auto) 1 Ur Epithelial Cells Rare Urine Bacteria Rare Ur Random Sodium Ur Random Potassium Ur Random Chloride Urine Creatinine < 13.0 L Stool Occult Blood Digoxin Blood Type Antibody Screen Crossmatch 05/20/17 05/20/17 05/20/17 01:00 01:30 09:50 WBC RBC Hgb Hct MCV MCH MCHC RDW Plt Count MPV Total Counted Neutrophils % Neutrophils % (Manual) Band Neutrophils % Lymphocytes % Lymphocytes % (Manual) Monocytes % (Manual) Eosinophils % (Manual) Basophils % (Manual) Myelocytes % (Man) Metamyelocytes Hypochromia Platelet Estimate Polychromasia Poikilocytosis Anisocytosis Microcytosis Macrocytosis PTT (Actin FS) 57.3 H VBG pH POC VBG pCO2 POC VBG pO2 Mixed VBG HCO3 Sodium 128 L Potassium 4.7 Chloride 99 Carbon Dioxide 13 L Anion Gap 16 BUN 85 H Creatinine 5.1 H Creat Clearance w eGFR 8.10 Random Glucose 228 H D Lactic Acid Calcium 6.6 L* Phosphorus 4.6 D Magnesium 1.9 Total Bilirubin 0.4 AST 67 H D ALT 13 D Alkaline Phosphatase 59 Total Protein 5.5 L Albumin 1.8 L Urine Color Urine Appearance Urine pH Ur Specific [place] Urine Protein Urine Glucose (UA) Urine Ketones Urine Blood Urine Nitrite Urine Bilirubin Urine Urobilinogen Ur Leukocyte Esterase Urine WBC (Auto) Urine RBC (Auto) Ur Epithelial Cells Urine Bacteria Ur Random Sodium Ur Random Potassium Ur Random Chloride Urine Creatinine Stool Occult Blood Negative Digoxin 2.3427 H Blood Type Antibody Screen Crossmatch 05/20/17 09:50 WBC 3.5 L RBC 3.10 L D Hgb 9.2 L D Hct 28.7 L D MCV 92.5 MCH 29.7 MCHC 32.1 RDW 15.7 H Plt Count 213 MPV 7.8 Total Counted 100 Neutrophils % No Result Required. Neutrophils % (Manual) 53.0 D Band Neutrophils % 2.0 Lymphocytes % No Result Required. Lymphocytes % (Manual) 20.0 Monocytes % (Manual) 24 H* Eosinophils % (Manual) 1.0 Basophils % (Manual) Myelocytes % (Man) Metamyelocytes Hypochromia Platelet Estimate Adequate Polychromasia Poikilocytosis Anisocytosis Microcytosis Macrocytosis PTT (Actin FS) VBG pH POC VBG pCO2 POC VBG pO2 Mixed VBG HCO3 Sodium Potassium Chloride Carbon Dioxide Anion Gap BUN Creatinine Creat Clearance w eGFR Random Glucose Lactic Acid Calcium Phosphorus Magnesium Total Bilirubin AST ALT Alkaline Phosphatase Total Protein Albumin Urine Color Urine Appearance Urine pH Ur Specific [place] Urine Protein Urine Glucose (UA) Urine Ketones Urine Blood Urine Nitrite Urine Bilirubin Urine Urobilinogen Ur Leukocyte Esterase Urine WBC (Auto) Urine RBC (Auto) Ur Epithelial Cells Urine Bacteria Ur Random Sodium Ur Random Potassium Ur Random Chloride Urine Creatinine Stool Occult Blood Digoxin Blood Type Antibody Screen Crossmatch (1) Septic shock Assessment/Plan: Continue resent care -continue IVF Code(s): A41.9 - SEPSIS, UNSPECIFIED ORGANISM; R65.21 - SEVERE SEPSIS WITH SEPTIC SHOCK (2) Fever and neutropenia Assessment/Plan: -ANC is still 0 -continue antibiotics Code(s): D70.9 - NEUTROPENIA, UNSPECIFIED; R50.81 - FEVER PRESENTING WITH CONDITIONS CLASSIFIED ELSEWHERE (3) Atrial fibrillation with RVR Assessment/Plan: Hert rate gets worse on and off with Albuterol Code(s): I48.91 - UNSPECIFIED ATRIAL FIBRILLATION (4) Acute renal failure Assessment/Plan: -secondary to sepsis, but may have chronic worsening secondary to MM Code(s): N17.9 - ACUTE KIDNEY FAILURE, UNSPECIFIED (5) Metabolic encephalopathy Assessment/Plan: -secondary to septic shock -unchanged -as above Code(s): G93.41 - METABOLIC ENCEPHALOPATHY (7) Hypocalcemia Assessment/Plan: -monitor, may need replacement Code(s): E83.51 - HYPOCALCEMIA (8) Multiple myeloma Assessment/Plan: Code(s): C90.00 - MULTIPLE MYELOMA NOT HAVING ACHIEVED REMISSION 81 year old with Multiple myeloma with muti system failure incuding sepsis and renal failure Prognosis is grim Had a very lengthy discussion with family regarding providing only palliative measures but the daughter feels that mom wanted to fight on
--- NOTE | 2017-05-20 14:59 | PN ---
Progress Note (short form) - Note Progress Note: Seen in follow up. Events of 24 hours reviewed - rapid AF now on amiodorone drip. Normotensive. Maintaining oxygenation with NC. Disoriented and confused, but no new complaints presently. Meds reviewed. Current Medications Generic Name Dose Route Start Last Admin Trade Name Freq PRN Reason Stop Dose Admin Chlorhexidine Gluconate 1 applic 05/18/17 22:00 05/19/17 21:16 Hibiclens For Decolonization - TP 1 applic HS TOMÁS Administration Heparin Sodium (Porcine) 1,000 unit 05/18/17 05:48 Heparin - IVPUSH PRN PRN Heparin Heparin Sodium (Porcine) 5,000 unit 05/18/17 05:48 Heparin - IVPUSH PRN PRN Heparin HEPARIN SOD,PORK IN 0.45% NACL 25,000 units in 500 mls @ 16 mls/hr 05/18/17 06 :00 05/20/17 06:20 Heparin-1/2ns 25,000 Units/500 IVPB Not Given TITR TOMÁS Protocol 800 UNIT/HR Meropenem 500 mg in 10 mls @ 120 mls/hr 05/18/17 13:00 05/20/17 09:31 Merrem (Restricted To Id) - IVPUSH 120 mls/hr BID TOMÁS Administration Ipratropium [place] 1 amp 05/20/17 12:00 Atrovent 0.02% Nebulizer - NEB QIDR TOMÁS Methylprednisolone Sodium Succinate 60 mg 05/20/17 12:00 05/20/17 12:03 Solu-Medrol - IVPUSH 65 mg Q8H-IV TOMÁS Administration Mupirocin 1 applic 05/18/17 10:00 05/20/17 09:32 Bactroban Ointment (For Decolonization) - NS 05/23/17 09:59 1 applic BID TOMÁS Administration Pantoprazole Sodium 40 mg 05/18/17 10:00 05/20/17 09:37 Protonix - PO Not Given DAILY TOMÁS On exam: Last Vital Signs Temp Pulse Resp BP Pulse Ox 97.6 F 106 H 26 H 96/55 100 05/20/17 14:00 05/20/17 14:00 05/20/17 14:00 05/20/17 14:00 05/20/17 09:00 General: Supine, weak, facial swelling, ill-looking CVS: Normotensive Chest: Tachypneic, some distress.. Abdomen: Non-distended Neuro: Drowsy but rousable, not oriented, follows commands, non-focal. Labs reviewed. CBC, BMP 05/20/17 09:50 05/20/17 09:50 Assessment. Progressive myeloma, presently admitted with suspected sepsis, on broad-specrum Abics. Afebrile at this time - ?febrile on admission. Cultures negative thus far. Neutropenic on admission - although seems to be discrepancy between manual and auto diff - former reporting ANC 1.8K today, latter reported as 0 yesterday - will review. Respiratory distress - with possibly worsening pleural effusion and pulmonary edema. Hypoalbuminemic. Hypocalcemic. Prognosis is poor. Advised family of this. Supportive care as above for now.
[2017-05-20] MEDS: IPRATROPIUM BR 0.02% 0.5 MG/2.5 ML VIAL.NEB. NEB SCH ×2 (20:42→20:43)
[2017-05-20] MEDS: CHLORHEXIDINE GLUCONATE 4% CLEANSER FOR DECOLONIZATION TP SCH (21:24)
[2017-05-20] MEDS ORDERED: HEPARIN SOD,PORK IN 0.45% NACL 25,000 UNITS/500 ML INFUS.BAG IVPB SCH (23:17)
[2017-05-20] MEDS ORDERED: HEPARIN NA (PORCINE) 5,000 UNITS/ML 1ML VIAL IVPUSH PRN ×2 (23:17)
[2017-05-21] MEDS: IPRATROPIUM BR 0.02% 0.5 MG/2.5 ML VIAL.NEB. NEB SCH ×5 (00:15→18:26)
[2017-05-21] MEDS: methylPREDNISolone NA SUCC 40 MG/1 ML VIAL IVPUSH SCH ×3 (01:37→17:30)
[2017-05-21 08:33] LABS: ALBUMIN 2.1 g/dl (3.4-5.0); ANION GAP 16 (8-16); BILIRUBIN,TOTAL 0.5 mg/dL (0.2-1.0); BLOOD UREA NITROGEN 101 mg/dL (7-18); CALCIUM 7.2 mg/dL (8.5-10.1); CHLORIDE 103 mmol/L (98-107); CO2 10 mmol/L (21-32); CREATININE 5.7 mg/dL (0.55-1.02); GLUCOSE,RANDOM 144 mg/dL (74-106); SGPT/ALT 14 U/L (12-78); SODIUM 129 mmol/L (136-145)
[2017-05-21 08:39] LABS: ALK PHOS 54 U/L (45-117)
--- NOTE | 2017-05-21 08:40 | PN ---
Progress Note, Physician Chief Complaint: sepsis, resp failure History of Present Illness: sleeping now. dtr at bedside--mother has been tired she says. no more wheezing/resp distress noted today no further hx available no cigs - Current Medication List Current Medications: Active Medications Heparin Sodium (Porcine) (Heparin -) 1,000 unit IVPUSH PRN PRN PRN Reason: Heparin Heparin Sodium (Porcine) (Heparin -) 5,000 unit IVPUSH PRN PRN PRN Reason: Heparin HEPARIN SOD,PORK IN 0.45% NACL (Heparin-1/2ns 25,000 Units/500) 25,000 units in 500 mls @ 16 mls/hr IVPB TITR TOMÁS; 800 UNITS/HR PRN Reason: Protocol Last Admin: 05/20/17 23:31 Dose: 800 units/hr, 16 mls/hr Meropenem (Merrem (Restricted To Id) -) 500 mg in 10 mls @ 120 mls/hr IVPUSH BID TOMÁS Ipratropium [place] (Atrovent 0.02% Nebulizer -) 1 amp NEB QIDR TOMÁS Last Admin: 05/21/17 06:18 Dose: Not Given Methylprednisolone Sodium Succinate (Solu-Medrol -) 60 mg IVPUSH Q8H-IV TOMÁS Last Admin: 05/21/17 01:37 Dose: 60 mg Pantoprazole Sodium (Protonix -) 40 mg PO DAILY TOMÁS - Objective Vital Signs: Vital Signs Temperature 97.4 F L 05/21/17 06:00 Pulse Rate 104 H 05/21/17 06:00 Respiratory Rate 16 05/21/17 06:00 Blood Pressure 91/55 05/21/17 06:00 O2 Sat by Pulse Oximetry (%) 100 05/20/17 20:46 Constitutional: Yes: No Distress, Calm, Obese Eyes: No: Sclera Icterus HENT: No: Nasal Congestion Cardiovascular: Yes: Regular Rate and Rhythm, S1, S2, Other (PMI non diplaced). No: JVD (short neck), Gallop, Murmur Respiratory: Yes: CTA Bilaterally. No: Accessory Muscle Use, Rales, Wheezes Gastrointestinal: Yes: Normal Bowel Sounds, Soft. No: Tenderness Musculoskeletal: Yes: Other (No kyphosis) Extremities: No: Cold Edema: No Integumentary: No: Jaundice Neurological: No: Alert (sleeping deeply), Seizure Psychiatric: No: Agitated Labs: INR, PTT INR 1.09 (0.82-1.09) 05/18/17 01:17 - ....Imaging EKG: Other (tele: sinus tach 110s) Assessment/Plan echo 02/2017: nl lv/rv, mild mr/tr, nl rvsp echo 04/2017: nl lv/rv, mild mr ct chest: b/l effs, ILD ecg 05/18/17: afib with rvr, nl qtc, no ischemic changes a/p: 81 f hx MM, hld, here with sepsis. 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 source (PNA?)--ID notes appreciated -cont abx per ID -cont ivfs to maintain bp, so far not requiring pressors -infection w/u in progress -supportive care per ICU team as doing -chemo per onc -bp borderline, mostly 90s-100s acute hypoxic resp failure, acute diast chf: -05/20: pt with signif tachypnea, using resp muscles, + audible wheezing. cxr with incr effusions and chf pattern -s/p lasix 40 ivp x1 -05/21: renal fxn worsening significantly (bun/creat 101/5.7), K 6.6. -CXR much improved -plan per dr bateman d/w family is to begin HD today (shiley catheter access placed this am). -defer lasix new onset afib, brief PSVT runs: -occurred here in setting of sepsis -rate improved after ivfs/abx--> converted to sinus -currently remains in sinus, cont telemetry -stop amiodarone (started overnight by crit care [employer])--monitor tele -bp low so if rvr again would start digoxin -chadsvasc is 3, cont ac with hep gtt--> pt with chronic anemia, d/w heme and ok for AC for now, monitor hgb -may need to reconsider AC depending on clinical course and pt/family goals of care, if prognosis is poor per onc aj: -progressively worsening -hyperkalemia noted--to be mngd with HD today, per renal
[2017-05-21 08:44] LABS: MAGNESIUM 2.5 mg/dL (1.8-2.4)
[2017-05-21 08:45] LABS: SGOT/AST 145 U/L (15-37)
[2017-05-21 08:52] LABS: HEMATOCRIT 25.9 % (32.4-45.2); MCH 29.8 pg (25.7-33.7); MCHC 30.8 g/dl (32.0-36.0); MEAN CELL VOLUME 96.7 fl (80-96); MEAN PLT VOLUME 8.6 fl (7.5-11.1); PLATELET COUNT 106 K/MM3 (134-434); POTASSIUM 6.6 mmol/L (3.5-5.1); RBC 2.68 M/mm3 (3.60-5.2); RDW 17.2 % (11.6-15.6); WHITE BLOOD COUNT 3.1 K/mm3 (4.0-10.0)
[2017-05-21 09:43] LABS: ANISOCYTOSIS 0; MACROCYTOSIS 0; PLATELET ESTIMATE DECREASED; TARGET CELLS 1+
[2017-05-21] MEDS ORDERED: MUPIROCIN 2% TOPICAL OINTMENT FOR DECOLONIZATION NS SCH (10:00)
[2017-05-21] MEDS ORDERED: PT OWN MED DRAWER 7, Y5N ONE ×2 (10:01→22:58)
--- NOTE | 2017-05-21 10:31 | PN ---
Progress Note, Physician Chief Complaint: ID Breathing labored Afebrile since 103 on admission Meropenem day 3 Rx - Current Medication List Current Medications: Active Medications Heparin Sodium (Porcine) (Heparin -) 1,000 unit IVPUSH PRN PRN PRN Reason: Heparin Heparin Sodium (Porcine) (Heparin -) 5,000 unit IVPUSH PRN PRN PRN Reason: Heparin Last Admin: 05/21/17 10:15 Dose: 5,000 unit HEPARIN SOD,PORK IN 0.45% NACL (Heparin-1/2ns 25,000 Units/500) 25,000 units in 500 mls @ 16 mls/hr IVPB TITR TOMÁS; 800 UNITS/HR PRN Reason: Protocol Last Admin: 05/20/17 23:31 Dose: 800 units/hr, 16 mls/hr Meropenem (Merrem (Restricted To Id) -) 500 mg in 10 mls @ 120 mls/hr IVPUSH BID TOMÁS Ipratropium [place] (Atrovent 0.02% Nebulizer -) 1 amp NEB QIDR TOMÁS Last Admin: 05/21/17 08:40 Dose: 1 amp Methylprednisolone Sodium Succinate (Solu-Medrol -) 60 mg IVPUSH Q8H-IV TOMÁS Last Admin: 05/21/17 10:07 Dose: 60 mg Pantoprazole Sodium (Protonix -) 40 mg PO DAILY TOMÁS - Objective Vital Signs: Vital Signs Temperature 97.4 F L 05/21/17 06:00 Pulse Rate 104 H 05/21/17 06:00 Respiratory Rate 16 05/21/17 06:00 Blood Pressure 91/55 05/21/17 06:00 O2 Sat by Pulse Oximetry (%) 100 05/20/17 20:46 Constitutional: Yes: Severe Distress Cardiovascular: Yes: S1, S2 Respiratory: Yes: WNL, Regular, CTA Bilaterally, Diminished Gastrointestinal: Yes: Soft. No: Tenderness Edema: Yes Labs: CBC, BMP 05/21/17 06:15 05/21/17 06:15 INR, PTT INR 1.09 (0.82-1.09) 05/18/17 01:17 Problem List - Problems (1) Sepsis affecting skin Code(s): A41.9 - SEPSIS, UNSPECIFIED ORGANISM (2) Sepsis Code(s): A41.9 - SEPSIS, UNSPECIFIED ORGANISM (3) Fever and neutropenia Code(s): D70.9 - NEUTROPENIA, UNSPECIFIED; R50.81 - FEVER PRESENTING WITH CONDITIONS CLASSIFIED ELSEWHERE (4) Multiple myeloma Code(s): C90.00 - MULTIPLE MYELOMA NOT HAVING ACHIEVED REMISSION (5) Acute renal failure Code(s): N17.9 - ACUTE KIDNEY FAILURE, UNSPECIFIED Assessment/Plan Microbiology 05/19/17 22:15 Stool Clostridium difficile Antigen (ROSALINDA) - Final 05/19/17 22:15 Stool Clostridium difficile Toxin Assay - Final 05/18/17 05:30 Nasopharyngeal Swab Influenza Types A,B Antigen (ROSALINDA) - Final 05/18/17 05:30 Nasopharyngeal Swab - Final 05/18/17 00:15 Urine - Urine [place] Urine Culture - Final NO GROWTH OBTAINED 05/18/17 01:17 Blood - Peripheral Venous Blood Culture - Preliminary NO GROWTH OBTAINED AFTER 72 HOURS, INCUBATION TO CONTINUE FOR 2 DAYS. 05/18/17 01:17 Blood - Peripheral Venous Blood Culture - Preliminary NO GROWTH OBTAINED AFTER 72 HOURS, INCUBATION TO CONTINUE FOR 2 DAYS. Laboratory Tests 05/21/17 05/21/17 06:15 06:15 WBC 3.1 L Hgb 8.0 L D Hct 25.9 L Plt Count 106 L D Creatinine 5.7 H Creat Clearance w eGFR 7.12 Assessment Neutropenic sepsis Congestive heart failure Multiple myeloma with thoracic involvment Acute renal failure Atrial fibrillation Respiratory failure Plan Would continue current antibiotic at least another 3 days then stop ICU transfer? Dialysis ? Pulmonary to see Sammy GONSAELS
--- NOTE | 2017-05-21 10:38 | PN ---
Progress Note, Physician History of Present Illness: pulmpnary lethargic,labored respirations - Current Medication List Current Medications: Active Medications Heparin Sodium (Porcine) (Heparin -) 1,000 unit IVPUSH PRN PRN PRN Reason: Heparin Heparin Sodium (Porcine) (Heparin -) 5,000 unit IVPUSH PRN PRN PRN Reason: Heparin Last Admin: 05/21/17 10:15 Dose: 5,000 unit HEPARIN SOD,[place] IN 0.45% NACL (Heparin-1/2ns 25,000 Units/500) 25,000 units in 500 mls @ 16 mls/hr IVPB TITR TOMÁS; 800 UNITS/HR PRN Reason: Protocol Last Admin: 05/20/17 23:31 Dose: 800 units/hr, 16 mls/hr Meropenem (Merrem (Restricted To Id) -) 500 mg in 10 mls @ 120 mls/hr IVPUSH BID TOMÁS Ipratropium [place] (Atrovent 0.02% Nebulizer -) 1 amp NEB QIDR TOMÁS Last Admin: 05/21/17 08:40 Dose: 1 amp Methylprednisolone Sodium Succinate (Solu-Medrol -) 60 mg IVPUSH Q8H-IV TOMÁS Last Admin: 05/21/17 10:07 Dose: 60 mg Pantoprazole Sodium (Protonix -) 40 mg PO DAILY TOMÁS - Objective Vital Signs: Vital Signs Temperature 97.4 F L 05/21/17 06:00 Pulse Rate 104 H 05/21/17 06:00 Respiratory Rate 16 05/21/17 06:00 Blood Pressure 91/55 05/21/17 06:00 O2 Sat by Pulse Oximetry (%) 100 05/20/17 20:46 Constitutional: Yes: Well Nourished, Moderate Distress, Other (lethargic) Eyes: Yes: WNL HENT: Yes: WNL Neck: Yes: WNL Cardiovascular: Yes: Pulse Irregular, S1, S2 Respiratory: Yes: Rales (paris wheezes and rales), Wheezes Gastrointestinal: Yes: Normal Bowel Sounds, Soft Extremities: Yes: WNL Edema: No Labs: CBC, BMP 05/21/17 06:15 05/21/17 06:15 INR, PTT INR 1.09 (0.82-1.09) 05/18/17 01:17 - ....Imaging Chest X-ray: Report Reviewed, Image Reviewed (less congestion) Problem List - Problems (1) Acute respiratory failure Code(s): J96.00 - ACUTE RESPIRATORY FAILURE, UNSP W HYPOXIA OR HYPERCAPNIA (2) Atrial fibrillation with RVR Code(s): I48.91 - UNSPECIFIED ATRIAL FIBRILLATION (3) Hyperkalemia, diminished renal excretion Code(s): E87.5 - HYPERKALEMIA (4) Multiple myeloma Code(s): C90.00 - MULTIPLE MYELOMA NOT HAVING ACHIEVED REMISSION (5) Sepsis Code(s): A41.9 - SEPSIS, UNSPECIFIED ORGANISM (6) Severe sepsis Code(s): A41.9 - SEPSIS, UNSPECIFIED ORGANISM; R65.20 - SEVERE SEPSIS WITHOUT SEPTIC SHOCK (7) Acute renal failure Code(s): N17.9 - ACUTE KIDNEY FAILURE, UNSPECIFIED (8) Metabolic encephalopathy Code(s): G93.41 - METABOLIC ENCEPHALOPATHY (9) Multiple myeloma Code(s): C90.00 - MULTIPLE MYELOMA NOT HAVING ACHIEVED REMISSION Qualifiers: Assessment/Plan A/P r/o Pneumonia Neutropenic Severe Sepsis Acute on Chronic Renal Failure Lactic Acidosis Hyponatremia Hyperkalemia Multiple Myeloma on chemo COPD Hyperlipidemia - NIPPV - continue broad spectrum antibiotics - d/c IVF - lasix as per renal - continue steroids - atrovent nebs, hold albuterol given tachycardia - monitor urine output, creatinine - monitor CBC DR DOMINGO -
[2017-05-21] MEDS: PANTOPRAZOLE 40 MG TABLET (FP) PO SCH (11:17)
--- NOTE | 2017-05-21 11:24 | PN ---
Progress Note (short form) - Note Progress Note: RENAL Pt is awake tachypneic and with wheezing lungs +wheezing cvs s1s2 rr abd soft ext + edema neuro awake, not responding to questions CBC, BMP 05/21/17 06:15 05/21/17 06:15 Current Medications Generic Name Dose Route Start Last Admin Trade Name Freq PRN Reason Stop Dose Admin Heparin Sodium (Porcine) 1,000 unit 05/20/17 23:17 Heparin - IVPUSH PRN PRN Heparin Heparin Sodium (Porcine) 5,000 unit 05/20/17 23:17 05/21/17 10:15 Heparin - IVPUSH 5,000 unit PRN PRN Administration Heparin HEPARIN SOD,P[place] IN 0.45% NACL 25,000 units in 500 mls @ 16 mls/hr 05/20/17 23 :17 05/20/17 23:31 Heparin-1/2ns 25,000 Units/500 IVPB 800 units/hr TITR TOMÁS 16 mls/hr Protocol Administration 800 UNITS/HR Meropenem 500 mg in 10 mls @ 120 mls/hr 05/21/17 10:00 Merrem (Restricted To Id) - IVPUSH BID TOMÁS Ipratropium [place] 1 amp 05/21/17 00:00 05/21/17 08:40 Atrovent 0.02% Nebulizer - NEB 1 amp QIDR TOMÁS Administration Methylprednisolone Sodium Succinate 60 mg 05/21/17 02:00 05/21/17 10:07 Solu-Medrol - IVPUSH 60 mg Q8H-IV TOMÁS Administration Pantoprazole Sodium 40 mg 05/21/17 10:00 05/21/17 11:17 Protonix - PO Not Given DAILY TOMÁS Impression 1. SHANIA 2. sepsis 3. anemia 4. CKD 5. multiple myeloma 6. malnutrition 7. proteinuria 8. possible hepatocellular disease seen on ultrasound 9. interstitial lung disease 10. hyponatremia 11. hyperkalemia Plan I had a lengthy discussion with pts daughter Arleth where I explained that the current situation requires a decision as to whether she receives dialysis or not. i explained that I do not disagree with a conservative approach, but a decision needed to be made. She spoke to her sisters and has opted for HD. I have asked DR Poe to insert a shiley so that we can proceed. The indications for HD are fluid overload, hyperkalemia and metabolic acidosis. YUNIER
--- NOTE | 2017-05-21 11:58 | PN ---
Progress Note (short form) - Note Progress Note: Vascular Surgery Shiley cath placed in left femoral vein. Guidewire removed. all ports flushed May use cath for HD Jayson lemus DO
[2017-05-21] MEDS: MEROPENEM 500 MG PUSH 500 MG/10 ML DISP.SYRIN IVPUSH SCH ×2 (12:22→23:04)
--- NOTE | 2017-05-21 12:44 | PN ---
Progress Note (short form) - Note Progress Note: Non communicative O/E Heart irregular Lungs VB, b/l scattered rales+, b/l exp wheezing+ Abd soft Ext b/l trace edema+ Vital Signs Period Temp Pulse Resp BP Sys/Saucedo Pulse Ox Last 24 Hr 97.3 F-98.2 F 91-112 16-27 88-123/52-65 100 Current Medications Heparin Sodium (Porcine) (Heparin -) 1,000 unit IVPUSH PRN PRN PRN Reason: Heparin Heparin Sodium (Porcine) (Heparin -) 5,000 unit IVPUSH PRN PRN PRN Reason: Heparin Last Admin: 05/21/17 10:15 Dose: 5,000 unit HEPARIN SOD,PORK IN 0.45% NACL (Heparin-1/2ns 25,000 Units/500) 25,000 units in 500 mls @ 16 mls/hr IVPB TITR TOM[facility]S; 800 UNITS/HR PRN Reason: Protocol Last Admin: 05/20/17 23:31 Dose: 800 units/hr, 16 mls/hr Meropenem (Merrem (Restricted To Id) -) 500 mg in 10 mls @ 120 mls/hr IVPUSH BID [facility] Last Admin: 05/21/17 12:22 Dose: 120 mls/hr Ipratropium [place] (Atrovent 0.02% Nebulizer -) 1 amp NEB QIDR [facility] Last Admin: 05/21/17 08:40 Dose: 1 amp Methylprednisolone Sodium Succinate (Solu-Medrol -) 60 mg IVPUSH Q8H-IV [facility] Last Admin: 05/21/17 10:07 Dose: 60 mg Pantoprazole Sodium (Protonix -) 40 mg PO DAILY [facility] Last Admin: 05/21/17 11:17 Dose: Not Given Laboratory Results - last 24 hr 05/19/17 05/20/17 05/20/17 22:15 09:50 09:50 WBC RBC Hgb Hct MCV MCH MCHC RDW Plt Count MPV Total Counted 100 Neutrophils % Neutrophils % (Manual) 53.0 D Band Neutrophils % 2.0 Lymphocytes % Lymphocytes % (Manual) 20.0 Monocytes % (Manual) 24 H* Eosinophils % (Manual) 1.0 Basophils % (Manual) Myelocytes % (Man) Metamyelocytes Hypochromia Platelet Estimate Adequate Polychromasia Poikilocytosis Anisocytosis Microcytosis Macrocytosis Target Cells PTT (Actin FS) 69.5 H Sodium Potassium Chloride Carbon Dioxide Anion Gap BUN Creatinine Creat Clearance w eGFR Random Glucose Calcium Phosphorus Magnesium Total Bilirubin AST ALT Alkaline Phosphatase Total Protein Albumin Stool Occult Blood Cancelled 05/21/17 05/21/17 05/21/17 06:15 06:15 06:15 WBC 3.1 L RBC 2.68 L Hgb 8.0 L D Hct 25.9 L MCV 96.7 H MCH 29.8 MCHC 30.8 L RDW 17.2 H Plt Count 106 L D MPV 8.6 D Total Counted Neutrophils % No Result Required. Neutrophils % (Manual) 83.0 H D Band Neutrophils % 0.0 Lymphocytes % No Result Required. Lymphocytes % (Manual) 7.4 L D Monocytes % (Manual) 9 Eosinophils % (Manual) 0.0 D Basophils % (Manual) 0.0 Myelocytes % (Man) 0 Metamyelocytes 0 Hypochromia 2+ Platelet Estimate Decreased Polychromasia 0 Poikilocytosis 0 Anisocytosis 0 Microcytosis 0 Macrocytosis 0 Target Cells 1+ PTT (Actin FS) 34.7 H D Sodium 129 L Potassium 6.6 H* D Chloride 103 Carbon Dioxide 10 L D Anion Gap 16 BUN 101 H Creatinine 5.7 H Creat Clearance w eGFR 7.12 Random Glucose 144 H D Calcium 7.2 L Phosphorus 9.0 H* D Magnesium 2.5 H D Total Bilirubin 0.5 D AST 145 H D ALT 14 Alkaline Phosphatase 54 Total Protein 6.0 L Albumin 2.1 L Stool Occult Blood 1) Septic shock Assessment/Plan: Continue resent care resolving Code(s): A41.9 - SEPSIS, UNSPECIFIED ORGANISM; R65.21 - SEVERE SEPSIS WITH SEPTIC SHOCK (2) Fever and neutropenia Assessment/Plan: -ID noted cont Abx, overall prognosis is grim Code(s): D70.9 - NEUTROPENIA, UNSPECIFIED; R50.81 - FEVER PRESENTING WITH CONDITIONS CLASSIFIED ELSEWHERE (3) Atrial fibrillation with RVR Assessment/Plan: Hert rate gets worse on and off with Albuterol Code(s): I48.91 - UNSPECIFIED ATRIAL FIBRILLATION (4) Acute renal failure Assessment/Plan: -family wants to proceed with HD. Spent a lot of time suggesting palliative measures might be more appropriate but the family want to proceed with HD Code(s): N17.9 - ACUTE KIDNEY FAILURE, UNSPECIFIED (5) Metabolic encephalopathy Assessment/Plan: -secondary to septic shock -unchanged -as above Code(s): G93.41 - METABOLIC ENCEPHALOPATHY (7) Hypocalcemia Assessment/Plan: -monitor, may need replacement Code(s): E83.51 - HYPOCALCEMIA (8) Multiple myeloma Assessment/Plan: Code(s): C90.00 - MULTIPLE MYELOMA NOT HAVING ACHIEVED REMISSION
--- NOTE | 2017-05-21 12:47 | PN ---
Progress Note (short form) - Note Progress Note: Seen in follow up. Events of 24 hours reviewed - worsening respiratory status, secondary to worsening fluid overload, with decreased arousal. Maintaining oxygenation with NC. Moved out of ICU. Meds reviewed. Current Medications Generic Name Dose Route Start Last Admin Trade Name Freq PRN Reason Stop Dose Admin Heparin Sodium (Porcine) 1,000 unit 05/20/17 23:17 Heparin - IVPUSH PRN PRN Heparin Heparin Sodium (Porcine) 5,000 unit 05/20/17 23:17 05/21/17 10:15 Heparin - IVPUSH 5,000 unit PRN PRN Administration Heparin HEPARIN SOD,PORK IN 0.45% NACL 25,000 units in 500 mls @ 16 mls/hr 05/20/17 23 :17 05/20/17 23:31 Heparin-1/2ns 25,000 Units/500 IVPB 800 units/hr TITR TOMÁS 16 mls/hr Protocol Administration 800 UNITS/HR Meropenem 500 mg in 10 mls @ 120 mls/hr 05/21/17 10:00 05/21/17 12:22 Merrem (Restricted To Id) - IVPUSH 120 mls/hr BID [facility] Administration Ipratropium [place] 1 amp 05/21/17 00:00 05/21/17 08:40 Atrovent 0.02% Nebulizer - NEB 1 amp QIDR [facility] Administration Methylprednisolone Sodium Succinate 60 mg 05/21/17 02:00 05/21/17 10:07 Solu-Medrol - IVPUSH 60 mg Q8H-IV [facility] Administration Pantoprazole Sodium 40 mg 05/21/17 10:00 05/21/17 11:17 Protonix - PO Not Given DAILY TOM[facility] On exam: General: Supine, weak, facial swelling, ill-looking CVS: Normotensive Chest: Tachypneic, some distress.. Abdomen: Non-distended Neuro: Drowsy but rousable, not oriented, follows commands, non-focal. Labs reviewed. CBC, BMP 05/21/17 06:15 05/21/17 06:15 Assessment. Progressive myeloma, presently admitted with suspected sepsis, on broad-specrum Abics. Afebrile at this time - ?febrile on admission. Cultures negative thus far. Neutropenic on admission - although seems to be discrepancy between manual and auto diff. Respiratory distress, worsening SHANIA, metabolic acidosis, hyperkalemia. Patient is pre-terminal. Prospects for any meaningful recovery are negligible. Family understand that hemodialysis at this time will not change the expected outcome - their hope is that is will be of palliative benefit in terms of improving her dyspnea and making her feel more comfortable temporarily. Explained that morphine would reliably achieve the same goal. Family wish to proceed with a trial of one session of dialysis - if no benefit (24-48 hours) then they agree not to proceed with further sessions.
--- NOTE | 2017-05-21 17:04 | EKG ---
Test Reason : Blood Pressure : / mmHG Vent. Rate : 152 BPM Atrial Rate : 159 BPM P-R Int : 000 ms QRS Dur : 088 ms QT Int : 296 ms P-R-T Axes : 000 021 137 degrees QTc Int : 470 ms ATRIAL FIBRILLATION WITH RAPID VENTRICULAR RESPONSE LOW VOLTAGE QRS NONSPECIFIC T WAVE ABNORMALITY ABNORMAL ECG WHEN COMPARED WITH ECG OF 18-MAY-2017 08:22, NO SIGNIFICANT CHANGE WAS FOUND Confirmed by ISAIAS TALAVERA MD ([id number]) on 05/21/2017 5:03:48 PM Referred By: Confirmed By:ISAIAS TALAVERA MD
[2017-05-21] MEDS ORDERED: IPRATROPIUM BR 0.02% 0.5 MG/2.5 ML VIAL.NEB. NEB ONE (17:46)
--- NOTE | 2017-05-21 20:17 | HOSP ---
Subjective - Review of Symptoms Events since last encounter: Hospitalist Encounter Notified by the RN, that a patient of Dr. Gregorio's, who is being covered by Dr. Small is having fluctuating HR 105-170, while on dialysis. A/P: This is a 81 y/o woman with MM, hld, here with sepsis. EKG- stat RN to notify Cardiology of change in HR Lopressor 5mg IV x1 EKG reviewed- Afib with RVR no change compared to prior study HR- Afib 110's post medication Will continue to monitor Day team to inform Covering attending of overnight's events Physical Examination Vital Signs: Vital Signs Temperature 97.3 F L 05/21/17 14:00 Pulse Rate 153 H 05/21/17 20:00 Respiratory Rate 20 05/21/17 20:00 Blood Pressure 143/69 05/21/17 20:00 O2 Sat by Pulse Oximetry (%) 99 05/21/17 09:00 Labs: CBC, BMP 05/21/17 06:15 05/21/17 06:15
[2017-05-21] MEDS ORDERED: METOPROLOL TARTRATE 5 MG/5 ML VIAL ONE (20:25)
[2017-05-21] MEDS ORDERED: dilTIAZem HCL 50 MG/10 ML - 10 ML VIAL IVPUSH ONE (20:30)
[2017-05-21] MEDS ORDERED: METOPROLOL TARTRATE 5 MG/5 ML VIAL IVPUSH ONE (20:30)
[2017-05-21] MEDS ORDERED: CHLORHEXIDINE GLUCONATE 4% CLEANSER FOR DECOLONIZATION TP SCH (22:00)
[2017-05-22] MEDS: IPRATROPIUM BR 0.02% 0.5 MG/2.5 ML VIAL.NEB. NEB SCH ×5 (00:05→23:17)
[2017-05-22] MEDS: methylPREDNISolone NA SUCC 40 MG/1 ML VIAL IVPUSH SCH ×3 (01:11→17:09)
[2017-05-22 08:18] LABS: HEMATOCRIT 22.6 % (32.4-45.2); HEMOGLOBIN 7.4 GM/dL (10.7-15.3); MCH 29.7 pg (25.7-33.7); MCHC 32.9 g/dl (32.0-36.0); MEAN CELL VOLUME 90.3 fl (80-96); MEAN PLT VOLUME 7.9 fl (7.5-11.1); PLATELET COUNT 132 K/MM3 (134-434); RDW 16.2 % (11.6-15.6); WHITE BLOOD COUNT 3.3 K/mm3 (4.0-10.0)
[2017-05-22] MEDS: MEROPENEM 500 MG PUSH 500 MG/10 ML DISP.SYRIN IVPUSH SCH ×2 (09:19→21:48)
[2017-05-22] MEDS: PANTOPRAZOLE 40 MG TABLET (FP) PO SCH (09:23)
--- NOTE | 2017-05-22 11:13 | PN ---
Progress Note, Physician History of Present Illness: pulmonary sleeping on nasal cannula,-resp distress,o2 sat97% on 2Lnc - Current Medication List Current Medications: Active Medications Meropenem (Merrem (Restricted To Id) -) 500 mg in 10 mls @ 120 mls/hr IVPUSH BID [facility] Last Admin: 05/22/17 09:19 Dose: 120 mls/hr Ipratropium [place] (Atrovent 0.02% Nebulizer -) 1 amp NEB QIDR [facility] Last Admin: 05/22/17 06:27 Dose: 1 amp Methylprednisolone Sodium Succinate (Solu-Medrol -) 60 mg IVPUSH Q8H-IV [facility] Last Admin: 05/22/17 01:11 Dose: 60 mg Pantoprazole Sodium (Protonix -) 40 mg PO DAILY [facility] Last Admin: 05/22/17 09:23 Dose: Not Given - Objective Vital Signs: Vital Signs Temperature 97.2 F L 05/22/17 10:00 Pulse Rate 109 H 05/22/17 10:00 Respiratory Rate 22 05/22/17 10:00 Blood Pressure 112/70 05/22/17 10:00 O2 Sat by Pulse Oximetry (%) 99 05/22/17 10:00 Constitutional: Yes: Well Nourished, Other (sleeping) Eyes: Yes: WNL HENT: Yes: WNL Neck: Yes: Supple Cardiovascular: Yes: Regular Rate and Rhythm, S1, S2 Respiratory: Yes: Diminished Gastrointestinal: Yes: Normal Bowel Sounds, Soft Extremities: Yes: WNL Edema: No Labs: CBC, BMP 05/22/17 05:35 INR, PTT INR 1.09 (0.82-1.09) 05/18/17 01:17 Problem List - Problems (1) Acute respiratory failure Code(s): J96.00 - ACUTE RESPIRATORY FAILURE, UNSP W HYPOXIA OR HYPERCAPNIA (2) Atrial fibrillation with RVR Code(s): I48.91 - UNSPECIFIED ATRIAL FIBRILLATION (3) Hyperkalemia, diminished renal excretion Code(s): E87.5 - HYPERKALEMIA (4) Multiple myeloma Code(s): C90.00 - MULTIPLE MYELOMA NOT HAVING ACHIEVED REMISSION (5) Sepsis Code(s): A41.9 - SEPSIS, UNSPECIFIED ORGANISM (6) Severe sepsis Code(s): A41.9 - SEPSIS, UNSPECIFIED ORGANISM; R65.20 - SEVERE SEPSIS WITHOUT SEPTIC SHOCK (7) Acute renal failure Code(s): N17.9 - ACUTE KIDNEY FAILURE, UNSPECIFIED (8) Metabolic encephalopathy Code(s): G93.41 - METABOLIC ENCEPHALOPATHY (9) Multiple myeloma Code(s): C90.00 - MULTIPLE MYELOMA NOT HAVING ACHIEVED REMISSION Qualifiers: Assessment/Plan A/P r/o Pneumonia Neutropenic Severe Sepsis Acute on Chronic Renal Failure Lactic Acidosis Hyponatremia Hyperkalemia Multiple Myeloma on chemo COPD Hyperlipidemia - NIPPV prn - antibiotics - continue steroids - atrovent nebs, hold albuterol given tachycardia - monitor urine output, creatinine - monitor CBC - transfuse as needed - chest x-ray kain DOMINGO -
--- NOTE | 2017-05-22 11:14 | PN ---
Progress Note, Physician - Current Medication List Current Medications: Active Medications Meropenem (Merrem (Restricted To Id) -) 500 mg in 10 mls @ 120 mls/hr IVPUSH BID [facility] Last Admin: 05/22/17 09:19 Dose: 120 mls/hr Ipratropium [place] (Atrovent 0.02% Nebulizer -) 1 amp NEB QIDR [facility] Last Admin: 05/22/17 06:27 Dose: 1 amp Methylprednisolone Sodium Succinate (Solu-Medrol -) 60 mg IVPUSH Q8H-IV [facility] Last Admin: 05/22/17 01:11 Dose: 60 mg Pantoprazole Sodium (Protonix -) 40 mg PO DAILY [facility] Last Admin: 05/22/17 09:23 Dose: Not Given - Objective Vital Signs: Vital Signs Temperature 97.2 F L 05/22/17 10:00 Pulse Rate 109 H 05/22/17 10:00 Respiratory Rate 22 05/22/17 10:00 Blood Pressure 112/70 05/22/17 10:00 O2 Sat by Pulse Oximetry (%) 99 05/22/17 10:00 Labs: CBC, BMP 05/22/17 05:35 05/21/17 06:15 INR, PTT INR 1.09 (0.82-1.09) 05/18/17 01:17 Assessment/Plan echo 02/2017: nl lv/rv, mild mr/tr, nl rvsp echo 04/2017: nl lv/rv, mild mr ct chest: b/l effs, ILD ecg 05/18/17: afib with rvr, nl qtc, no ischemic changes a/p: 81 f hx MM, hld, here with sepsis. 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 source (PNA?)--ID notes appreciated -cont abx per ID -cont ivfs to maintain bp, so far not requiring pressors -infection w/u in progress -supportive care per ICU team as doing -chemo per onc -bp borderline, mostly 90s-100s -pancytopenic--per onc acute hypoxic resp failure, acute diast chf: -05/20: pt with signif tachypnea, using resp muscles, + audible wheezing. cxr with incr effusions and chf pattern -s/p lasix 40 ivp x1 -05/21: renal fxn worsening significantly (bun/creat 101/5.7), K 6.6. -CXR much improved -plan per dr bateman d/w family is to begin HD today (shiley catheter access placed this am). -defer lasix new onset afib, brief PSVT runs: -occurred here in setting of sepsis -rate improved after ivfs/abx--> converted to sinus -currently remains in sinus, cont telemetry -stop amiodarone (started overnight by crit care KETTLE COOK)--monitor tele -bp low so if rvr again would start digoxin -chadsvasc is 3, cont ac with hep gtt--> pt with chronic anemia, d/w heme and ok for AC for now, monitor hgb -may need to reconsider AC depending on clinical course and pt/family goals of care, if prognosis is poor per onc aj: -progressively worsening -hyperkalemia tx per renal
--- NOTE | 2017-05-22 12:14 | PN ---
Progress Note (short form) - Note Progress Note: s/p HD last evening no complaints daughter at bedside Vital Signs Period Temp Pulse Resp BP Sys/Saucedo Pulse Ox Last 24 Hr 97.2 F-97.8 F 102-160 20-24 112-155/64-116 98-115 cor-rrr lungs decreased bs at bases abd soft,nt +left groin shiley ext +edema Microbiology 05/18/17 01:17 Blood - Peripheral Venous Blood Culture - Preliminary NO GROWTH OBTAINED AFTER 96 HOURS, INCUBATION TO CONTINUE FOR 1 DAYS. 05/18/17 01:17 Blood - Peripheral Venous Blood Culture - Preliminary NO GROWTH OBTAINED AFTER 96 HOURS, INCUBATION TO CONTINUE FOR 1 DAYS. 05/19/17 22:15 Stool Clostridium difficile Antigen (ROSALINDA) - Final 05/19/17 22:15 Stool Clostridium difficile Toxin Assay - Final 05/18/17 00:15 Urine - Urine Farrar Urine Culture - Final NO GROWTH OBTAINED 05/18/17 05:30 Nasopharyngeal Swab Influenza Types A,B Antigen (ROSALINDA) - Final 05/18/17 05:30 Nasopharyngeal Swab - Final CBC 05/22/17 05:35 Current Medications Meropenem (Merrem (Restricted To Id) -) 500 mg in 10 mls @ 120 mls/hr IVPUSH BID [facility] Last Admin: 05/22/17 09:19 Dose: 120 mls/hr Ipratropium [place] (Atrovent 0.02% Nebulizer -) 1 amp NEB QIDR [facility] Last Admin: 05/22/17 06:27 Dose: 1 amp Methylprednisolone Sodium Succinate (Solu-Medrol -) 60 mg IVPUSH Q8H-IV [facility] Last Admin: 05/22/17 11:53 Dose: 60 mg Pantoprazole Sodium (Protonix -) 40 mg PO DAILY [facility] Last Admin: 05/22/17 09:23 Dose: Not Given a/p neutropenic fevers resolved neutropenia resolved on meropenem day #4 to continue SHANIA- now on HD multiple myeloma
[2017-05-22 13:17] LABS: ANION GAP 18 (8-16); BLOOD UREA NITROGEN 69 mg/dL (7-18); CALCIUM 7.4 mg/dL (8.5-10.1); CHLORIDE 102 mmol/L (98-107); CO2 17 mmol/L (21-32); CREATININE 3.9 mg/dL (0.55-1.02); GLUCOSE,RANDOM 102 mg/dL (74-106); SODIUM 137 mmol/L (136-145)
--- NOTE | 2017-05-22 13:28 | PN ---
Progress Note (short form) - Note Progress Note: Chart reviewed in detail. All consults input noted. Daughter at bedside. Events noted from over the weekend. s/p HD session one on 05/21. c/b tachycardia requiring lopressor. Daughter says that she is improved and is awake. Patient is awake, but unable to follow or perform any meaningful gestures. O/E: General: awake, restless , not agitated, cushingoid appearance. HEENT: NCAT Cardiac: Tachy Lungs: decreased breath sounds Abdomen: ND NT LE: +1 edema b/l LE. Left groin shiley examined, site appears Nl. Last Vital Signs Temp Pulse Resp BP Pulse Ox 97.2 F L 109 H 22 112/70 99 05/22/17 10:00 05/22/17 10:00 05/22/17 10:00 05/22/17 10:00 05/22/17 10:00 CBC, BMP 05/22/17 05:35 Current Medications Generic Name Dose Route Start Last Admin Trade Name Freq PRN Reason Stop Dose Admin Meropenem 500 mg in 10 mls @ 120 mls/hr 05/21/17 10:00 05/22/17 09:19 Merrem (Restricted To Id) - IVPUSH 120 mls/hr BID [facility] Administration Ipratropium [place] 1 amp 05/21/17 00:00 05/22/17 12:27 Atrovent 0.02% Nebulizer - NEB Not Given QIDR [facility] Methylprednisolone Sodium Succinate 60 mg 05/21/17 02:00 05/22/17 11:53 Solu-Medrol - IVPUSH 60 mg Q8H-IV [facility] Administration Pantoprazole Sodium 40 mg 05/21/17 10:00 05/22/17 09:23 Protonix - PO Not Given DAILY [facility] Progressive myeloma, presently admitted with suspected sepsis, on meropenam as per ID Respiratory distress, worsening SHANIA, metabolic acidosis, hyperkalemia. on HD session 1 on 05/21 To give PRBC along with HD tomorrow ( d/w ), daughter agrees DNR. Guarded prognosis.
[2017-05-22 14:03] LABS: POTASSIUM 4.8 mmol/L (3.5-5.1)
--- NOTE | 2017-05-22 14:09 | PN ---
Progress Note, Physician History of Present Illness: Pt seen and examined at bedside. She is awake but not talking much. - Current Medication List Current Medications: Active Medications Meropenem (Merrem (Restricted To Id) -) 500 mg in 10 mls @ 120 mls/hr IVPUSH [facility]ID [facility] Last Admin: 05/22/17 09:19 Dose: 120 mls/hr Ipratropium [place] (Atrovent 0.02% Nebulizer -) 1 amp NEB QIDR [facility] Last Admin: 05/22/17 12:27 Dose: Not Given Methylprednisolone Sodium Succinate (Solu-Medrol -) 60 mg IVPUSH Q8H-IV [facility] Last Admin: 05/22/17 11:53 Dose: 60 mg Pantoprazole Sodium (Protonix -) 40 mg PO DAILY [facility] Last Admin: 05/22/17 09:23 Dose: Not Given - Objective Vital Signs: Vital Signs Temperature 97.2 F L 05/22/17 10:00 Pulse Rate 109 H 05/22/17 10:00 Respiratory Rate 22 05/22/17 10:00 Blood Pressure 112/70 05/22/17 10:00 O2 Sat by Pulse Oximetry (%) 99 05/22/17 10:00 Constitutional: Yes: Calm Eyes: Yes: Conjunctiva Clear HENT: Yes: Atraumatic Cardiovascular: Yes: S1, S2 Respiratory: Yes: On Nasal O2 Gastrointestinal: Yes: Soft Genitourinary: Yes: Farrar Present Musculoskeletal: Yes: Muscle Weakness Edema: Yes Edema: LLE: Trace, RLE: Trace Neurological: Yes: Confusion Labs: CBC, BMP 05/22/17 05:35 05/22/17 12:35 INR, PTT INR 1.09 (0.82-1.09) 05/18/17 01:17 Problem List - Problems (1) Atrial fibrillation with RVR Code(s): I48.91 - UNSPECIFIED ATRIAL FIBRILLATION (2) Fever and neutropenia Code(s): D70.9 - NEUTROPENIA, UNSPECIFIED; R50.81 - FEVER PRESENTING WITH CONDITIONS CLASSIFIED ELSEWHERE (3) Hyperkalemia, diminished renal excretion Code(s): E87.5 - HYPERKALEMIA (4) Hyponatremia Code(s): E87.1 - HYPO-OSMOLALITY AND HYPONATREMIA (5) Multiple myeloma Code(s): C90.00 - MULTIPLE MYELOMA NOT HAVING ACHIEVED REMISSION (6) Sepsis Code(s): A41.9 - SEPSIS, UNSPECIFIED ORGANISM (7) Multiple myeloma Code(s): C90.00 - MULTIPLE MYELOMA NOT HAVING ACHIEVED REMISSION Qualifiers: Assessment/Plan Current Medications Generic Name Dose Route Start Last Admin Trade Name Oscar[place] PRN Reason Stop Dose Admin Meropenem 500 mg in 10 mls @ 120 mls/hr 05/21/17 10:00 05/22/17 09:19 Merrem (Restricted To Id) - IVPUSH 120 mls/hr BID [facility] Administration Ipratropium [place] 1 amp 05/21/17 00:00 05/22/17 12:27 Atrovent 0.02% Nebulizer - NEB Not Given QIDR [facility] Methylprednisolone Sodium Succinate 60 mg 05/21/17 02:00 05/22/17 11:53 Solu-Medrol - IVPUSH 60 mg Q8H-IV [facility] Administration Pantoprazole Sodium 40 mg 05/21/17 10:00 05/22/17 09:23 Protonix - PO Not Given DAILY [facility] Impression 1. SHANIA 2. sepsis 3. anemia 4. CKD 5. multiple myeloma 6. malnutrition 7. proteinuria 8. possible hepatocellular disease seen on ultrasound 9. interstitial lung disease 10. hyponatremia 11. hyperkalemia Plan - reviewed stat labs - HD in am - cont current meds - discussed case with pts daughter at length - pt has had multiple episodes of renal failure and likely did have renal involvement from myeloma - monitor urine output - cont abx per ID - will follow Dr Soto
--- NOTE | 2017-05-22 14:09 | PN ---
Progress Note, Physician Chief Complaint: SVTs History of Present Illness: yest during HD #1, developed tachycardia to HR 160s bpm. given dose of lopressor 5mg IVP very tired, sleeping most of the day per dtrs at bedside. they say she is signif more alert than yesterday. has not complained to them of cp breathing looks much more comfortable to them, not labored like yest pt very lethargic, not communicative but opens eyes to voice no cigs - Current Medication List Current Medications: Active Medications Meropenem (Merrem (Restricted To Id) -) 500 mg in 10 mls @ 120 mls/hr IVPUSH BID [facility] Last Admin: 05/22/17 09:19 Dose: 120 mls/hr Ipratropium [place] (Atrovent 0.02% Nebulizer -) 1 amp NEB QIDR [facility] Last Admin: 05/22/17 12:27 Dose: Not Given Methylprednisolone Sodium Succinate (Solu-Medrol -) 60 mg IVPUSH Q8H-IV [facility] Last Admin: 05/22/17 11:53 Dose: 60 mg Pantoprazole Sodium (Protonix -) 40 mg PO DAILY [facility] Last Admin: 05/22/17 09:23 Dose: Not Given - Objective Vital Signs: Vital Signs Temperature 97.2 F L 05/22/17 10:00 Pulse Rate 109 H 05/22/17 10:00 Respiratory Rate 22 05/22/17 10:00 Blood Pressure 112/70 05/22/17 10:00 O2 Sat by Pulse Oximetry (%) 99 05/22/17 10:00 Constitutional: Yes: No Distress, Calm Eyes: No: Sclera Icterus HENT: No: Nasal Congestion Cardiovascular: Yes: Regular Rate and Rhythm, Rub, S1, S2, Other (PMI non diplaced). No: JVD (tds habitus), Gallop, Murmur Respiratory: Yes: CTA Bilaterally. No: Accessory Muscle Use, Rales, Wheezes Gastrointestinal: Yes: Normal Bowel Sounds, Soft. No: Tenderness Musculoskeletal: Yes: Other (No kyphosis) Extremities: No: Cold Edema: Yes (mild hands/feet) Integumentary: No: Jaundice Neurological: Yes: Lethargy. No: Seizure Psychiatric: No: Agitated Labs: CBC, BMP 05/22/17 05:35 05/22/17 12:35 INR, PTT INR 1.09 (0.82-1.09) 05/18/17 01:17 - ....Imaging EKG: Other (tele: sinus tach with freq APCs. episodes of AFL (atrial rate approx 330) with mostly 2:1 conduction but at times varying conduction.) Assessment/Plan echo 02/2017: nl lv/rv, mild mr/tr, nl rvsp echo 04/2017: nl lv/rv, mild mr ct chest: b/l effs, ILD ECG's 05/20, 05/21: SVT/AFL present on some, nonsp ST-Ts--no acute changes (no ST elevation) a/p: 81 f hx MM, hld, here with sepsis. 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 source (PNA?)--ID notes appreciated -cont abx per ID -cont ivfs to maintain bp, so far not requiring pressors -infection w/u in progress -supportive care per ICU team as doing -chemo per onc -bp borderline, mostly 90s-100s, off pressors--dropped to 80s 05/21 during HD -pancytopenic--per onc r/o uremic pericarditis: -new pericardial friction rub on exam, ? inflammation is driving PSVT tendencies -no ST changes on ecg's yesterday vs DOA, but has had nonsp ST-T changes here different vs prior ecg -low bp during HD yesterday--o/w she's been hemodynamically stable. clinically improving sob status. -rpt echo tomorrow -observe clinically for hemodynamic changes new onset afib, brief PSVT runs: -occurred here in setting of sepsis -05/21 during HD had episodes of AFL with 2:1 > variable conduction, rapid HRs, with low BPs in 80s. -if continues to occur during HD, it will make successful dialysis very difficult. -has remained in sinus since. d/w'd dtr's option of adding amio for SVT/AFL suppression, but they prefer holding off unless recurrent episodes, since they are in general concerned regarding medication toxicity potential. -05/22: family declining heparin b/c of bleeding thru skin on hands and concerns of risks of medication. i explained to them that there is an uncertain degree of risk of embolism/CVA with brief PAFL, though it is felt to be statistically very low with brief duration as with her. they verbalize understanding and preference to take that risk in order to avoid risk of bleeding. -cont tele monitoring -chadsvasc is 3, cont ac with hep gtt--> pt with chronic anemia, d/w heme and ok for AC for now, monitor hgb acute hypoxic resp failure, acute diast chf: -05/20: pt with signif tachypnea, using resp muscles, + audible wheezing. cxr with incr effusions and chf pattern -s/p lasix 40 ivp x1 -05/21: renal fxn worsening significantly (bun/creat 101/5.7), K 6.6. -CXR much improved -plan per dr bateman d/w family is to begin HD today (shiley catheter access placed this am). -defer lasix aj: -? sepsis ATN -required initiation of HD here
[2017-05-22] MEDS ORDERED: AMIODARONE HCL 200 MG TABLET (FP) PO SCH (14:15)
[2017-05-22] MEDS ORDERED: METOPROLOL TARTRATE 5 MG/5 ML VIAL IVPUSH PRN (14:26)
--- NOTE | 2017-05-22 17:35 | PN ---
Progress Note (short form) - Note Progress Note: Non verbal O/E Hert regular Lungs few scattered rales+ Abd soft Ext no edema Vital Signs Period Temp Pulse Resp BP Sys/Saucedo Pulse Ox Last 24 Hr 97.2 F-97.8 F 102-160 - 112-155/64-116 98-115 Current Medications Meropenem (Merrem (Restricted To Id) -) 500 mg in 10 mls @ 120 mls/hr IVPUSH BID [facility] Last Admin: 05/22/17 09:19 Dose: 120 mls/hr Ipratropium [place] (Atrovent 0.02% Nebulizer -) 1 amp NEB QIDR [facility] Last Admin: 05/22/17 12:27 Dose: Not Given Methylprednisolone Sodium Succinate (Solu-Medrol -) 60 mg IVPUSH Q8H-IV [facility] Last Admin: 05/22/17 17:09 Dose: 60 mg Metoprolol Tartrate (Lopressor Injection -) 5 mg IVPUSH Q1H PRN PRN Reason: TACHYCARDIA Pantoprazole Sodium (Protonix -) 40 mg PO DAILY [facility] Last Admin: 05/22/17 09:23 Dose: Not Given Vital Signs Period Temp Pulse Resp BP Sys/Saucedo Pulse Ox Last 24 Hr 97.2 F-97.8 F 102-160 - 112-155/64-116 98-115 Laboratory Results - last 24 hr 05/21/17 05/22/17 05/22/17 21:40 05:35 05:35 WBC 3.3 L RBC 2.50 L Hgb 7.4 L Hct 22.6 L MCV 90.3 D MCH 29.7 MCHC 32.9 RDW 16.2 H Plt Count 132 L D MPV 7.9 PTT (Actin FS) 26.7 L Sodium Potassium Chloride Carbon Dioxide Anion Gap BUN Creatinine Random Glucose Calcium Hepatitis C Antibody Cancelled 05/22/17 12:35 WBC RBC Hgb Hct MCV MCH MCHC RDW Plt Count MPV PTT (Actin FS) Sodium 137 Potassium 4.8 D Chloride 102 Carbon Dioxide 17 L D Anion Gap 18 H BUN 69 H D Creatinine 3.9 H D Random Glucose 102 D Calcium 7.4 L Hepatitis C Antibody A&P 1) Septic shock Assessment/Plan: Continue present care resolving Code(s): A41.9 - SEPSIS, UNSPECIFIED ORGANISM; R65.21 - SEVERE SEPSIS WITH SEPTIC SHOCK (2) Fever and neutropenia Assessment/Plan: -ID noted cont Abx, overall prognosis is still guarded Code(s): D70.9 - NEUTROPENIA, UNSPECIFIED; R50.81 - FEVER PRESENTING WITH CONDITIONS CLASSIFIED ELSEWHERE (3) Atrial fibrillation with RVR Assessment/Plan: Hert rate gets worse on and off with Albuterol Code(s): I48.91 - UNSPECIFIED ATRIAL FIBRILLATION (4) Acute renal failure Assessment/Plan: She appears to be better after ruby HD yesterday, The gasping is less and the electrolytes have improved Code(s): N17.9 - ACUTE KIDNEY FAILURE, UNSPECIFIED (5) Metabolic encephalopathy Assessment/Plan: -secondary to septic shock -Improved compared to yesterday -as above Code(s): G93.41 - METABOLIC ENCEPHALOPATHY (7) Hypocalcemia Assessment/Plan: -monitor, may need replacement Code(s): E83.51 - HYPOCALCEMIA (8) Multiple myeloma Assessment/Plan: Code(s): C90.00 - MULTIPLE MYELOMA NOT HAVING ACHIEVED REMISSION
[2017-05-23] MEDS: methylPREDNISolone NA SUCC 40 MG/1 ML VIAL IVPUSH SCH ×3 (01:37→18:18)
[2017-05-23] MEDS: IPRATROPIUM BR 0.02% 0.5 MG/2.5 ML VIAL.NEB. NEB SCH ×4 (06:46→23:10)
[2017-05-23] MEDS: MEROPENEM 500 MG PUSH 500 MG/10 ML DISP.SYRIN IVPUSH SCH ×2 (10:04→22:48)
[2017-05-23] MEDS: PANTOPRAZOLE 40 MG TABLET (FP) PO SCH (10:09)
--- NOTE | 2017-05-23 12:17 | PN ---
Progress Note (short form) - Note Progress Note: Chart reviewed in detail. All consults input noted. Daughter at bedside. Undergoing HD. O/E: General: easily arousable, cushingoid appearance. HEENT: NCAT Cardiac: Tachy Lungs: decreased breath sounds Abdomen: ND NT LE: +1 edema b/l LE. Last Vital Signs Temp Pulse Resp BP Pulse Ox 98.4 F 92 H 18 116/74 94 L 05/23/17 10:00 05/23/17 11:40 05/23/17 11:40 05/23/17 11:40 05/22/17 21:00 CBC, BMP 05/22/17 05:35 05/22/17 12:35 Patient with Multiple Myeloma not in CR, last treatment presently admitted with suspected sepsis , course complciated by Respiratory distress, worsening SHANIA, metabolic acidosis, hyperkalemia, afib on HD session 1 on 05/21, session 2 today per renal on meropenam pAfl, off AC as per daughters preferences. for PRBC transfusion labs from today to be reviewed d/wRN
--- NOTE | 2017-05-23 12:28 | PN ---
Progress Note, Physician History of Present Illness: pulmonary moer,alert,on dialysis,-resp distress - Current Medication List Current Medications: Active Medications Meropenem (Merrem (Restricted To Id) -) 500 mg in 10 mls @ 120 mls/hr IVPUSH BID [facility] Last Admin: 05/23/17 10:04 Dose: 120 mls/hr Ipratropium [place] (Atrovent 0.02% Nebulizer -) 1 amp NEB QIDR [facility] Last Admin: 05/23/17 06:46 Dose: Not Given Methylprednisolone Sodium Succinate (Solu-Medrol -) 60 mg IVPUSH Q8H-IV [facility] Last Admin: 05/23/17 10:04 Dose: 60 mg Metoprolol Tartrate (Lopressor Injection -) 5 mg IVPUSH Q1H PRN PRN Reason: TACHYCARDIA Pantoprazole Sodium (Protonix -) 40 mg PO DAILY [facility] Last Admin: 05/23/17 10:09 Dose: Not Given - Objective Vital Signs: Vital Signs Temperature 98.4 F 05/23/17 10:00 Pulse Rate 92 H 05/23/17 11:40 Respiratory Rate 18 05/23/17 11:40 Blood Pressure 116/74 05/23/17 11:40 O2 Sat by Pulse Oximetry (%) 94 L 05/22/17 21:00 Constitutional: Yes: Well Nourished, Calm Eyes: Yes: WNL HENT: Yes: WNL Neck: Yes: WNL Cardiovascular: Yes: Pulse Irregular, S1, S2 Respiratory: Yes: Diminished (poor inspiratory effort) Gastrointestinal: Yes: Normal Bowel Sounds, Soft Extremities: Yes: WNL Edema: No Labs: Problem List - Problems (1) Acute respiratory failure Code(s): J96.00 - ACUTE RESPIRATORY FAILURE, UNSP W HYPOXIA OR HYPERCAPNIA (2) Atrial fibrillation with RVR Code(s): I48.91 - UNSPECIFIED ATRIAL FIBRILLATION (3) Hyperkalemia, diminished renal excretion Code(s): E87.5 - HYPERKALEMIA (4) Multiple myeloma Code(s): C90.00 - MULTIPLE MYELOMA NOT HAVING ACHIEVED REMISSION (5) Sepsis Code(s): A41.9 - SEPSIS, UNSPECIFIED ORGANISM (6) Severe sepsis Code(s): A41.9 - SEPSIS, UNSPECIFIED ORGANISM; R65.20 - SEVERE SEPSIS WITHOUT SEPTIC SHOCK (7) Acute renal failure Code(s): N17.9 - ACUTE KIDNEY FAILURE, UNSPECIFIED (8) Metabolic encephalopathy Code(s): G93.41 - METABOLIC ENCEPHALOPATHY (9) Multiple myeloma Code(s): C90.00 - MULTIPLE MYELOMA NOT HAVING ACHIEVED REMISSION Qualifiers: Assessment/Plan A/P r/o Pneumonia Neutropenic Severe Sepsis Acute on Chronic Renal Failure Lactic Acidosis Hyponatremia Hyperkalemia Multiple Myeloma on chemo COPD Hyperlipidemia - NIPPV prn,O2 - antibiotics as per ID - steroids - atrovent nebs, hold albuterol given tachycardia - monitor urine output, creatinine - monitor CBC - transfuse as needed - chest x-ray today DR DOMINGO -
--- NOTE | 2017-05-23 12:32 | PN ---
Progress Note, Physician Chief Complaint: Very lethargic, unable to obtain. Discussed with daughter at bedside who says patient is exhausted from HD and is not eating as much. - Current Medication List Current Medications: Active Medications Meropenem (Merrem (Restricted To Id) -) 500 mg in 10 mls @ 120 mls/hr IVPUSH BID [facility] Last Admin: 05/23/17 10:04 Dose: 120 mls/hr Ipratropium [place] (Atrovent 0.02% Nebulizer -) 1 amp NEB QIDR [facility] Last Admin: 05/23/17 06:46 Dose: Not Given Methylprednisolone Sodium Succinate (Solu-Medrol -) 60 mg IVPUSH Q8H-IV [facility] Last Admin: 05/23/17 10:04 Dose: 60 mg Metoprolol Tartrate (Lopressor Injection -) 5 mg IVPUSH Q1H PRN PRN Reason: TACHYCARDIA Pantoprazole Sodium (Protonix -) 40 mg PO DAILY [facility] Last Admin: 05/23/17 10:09 Dose: Not Given - Objective Vital Signs: Vital Signs Temperature 36.9 C 05/23/17 10:00 Pulse Rate 92 H 05/23/17 11:40 Respiratory Rate 18 05/23/17 11:40 Blood Pressure 116/74 05/23/17 11:40 O2 Sat by Pulse Oximetry (%) 94 L 05/22/17 21:00 Constitutional: Yes: Other (lethargic) Cardiovascular: Yes: Tachycardia. No: Gallop, Murmur, Rub Respiratory: Yes: Regular, CTA Bilaterally, On Nasal O2. No: Rales, Rhonchi, Wheezes Gastrointestinal: Yes: Normal Bowel Sounds, Soft. No: Distention, Tenderness Extremities: Yes: WNL Edema: Yes Edema: LUE: 1+, RUE: 1+, LLE: 1+, RLE: 1+ Labs: CBC, BMP 05/22/17 05:35 05/22/17 12:35 INR, PTT INR 1.09 (0.82-1.09) 05/18/17 01:17 Problem List - Problems (1) Septic shock Code(s): A41.9 - SEPSIS, UNSPECIFIED ORGANISM; R65.21 - SEVERE SEPSIS WITH SEPTIC SHOCK (2) Fever and neutropenia Code(s): D70.9 - NEUTROPENIA, UNSPECIFIED; R50.81 - FEVER PRESENTING WITH CONDITIONS CLASSIFIED ELSEWHERE (3) Atrial fibrillation with RVR Code(s): I48.91 - UNSPECIFIED ATRIAL FIBRILLATION (4) Acute renal failure Code(s): N17.9 - ACUTE KIDNEY FAILURE, UNSPECIFIED (5) Metabolic encephalopathy Code(s): G93.41 - METABOLIC ENCEPHALOPATHY (6) Hyponatremia Code(s): E87.1 - HYPO-OSMOLALITY AND HYPONATREMIA (7) Hypocalcemia Code(s): E83.51 - HYPOCALCEMIA (8) Multiple myeloma Code(s): C90.00 - MULTIPLE MYELOMA NOT HAVING ACHIEVED REMISSION Assessment/Plan (1) Septic shock Assessment/Plan -resolved -cultures are negative -ID following, continuing merrem day 5 -continue to monitor on telemetry Code(s): A41.9 - SEPSIS, UNSPECIFIED ORGANISM; R65.21 - SEVERE SEPSIS WITH SEPTIC SHOCK (2) Fever and neutropenia Assessment/Plan: -resolved -continue merrem as above Code(s): D70.9 - NEUTROPENIA, UNSPECIFIED; R50.81 - FEVER PRESENTING WITH CONDITIONS CLASSIFIED ELSEWHERE (3) Atrial fibrillation with RVR Assessment/Plan: -remains tachycardic but better controlled -cardiology following -continue prn metoprolol Code(s): I48.91 - UNSPECIFIED ATRIAL FIBRILLATION (4) Acute renal failure Assessment/Plan: -nephrology following -started on HD over the weekend -to continue on HD today Code(s): N17.9 - ACUTE KIDNEY FAILURE, UNSPECIFIED (5) Metabolic encephalopathy Assessment/Plan: -still very lethargic -most likely secondary to renal failure -receiving HD, monitor for improvement Code(s): G93.41 - METABOLIC ENCEPHALOPATHY (6) Hyponatremia Assessment/Plan: -resolved Code(s): E87.1 - HYPO-OSMOLALITY AND HYPONATREMIA (7) Hypocalcemia Assessment/Plan: -monitor, may need replacement Code(s): E83.51 - HYPOCALCEMIA (8) Multiple myeloma Assessment/Plan: -oncology following Code(s): C90.00 - MULTIPLE MYELOMA NOT HAVING ACHIEVED REMISSION (9) Anemia -to receive 1 unit pRBCs with HD
[2017-05-23 12:42] LABS: HEMATOCRIT 23.9 % (32.4-45.2); HEMOGLOBIN 7.8 GM/dL (10.7-15.3); MCH 29.9 pg (25.7-33.7); MCHC 32.8 g/dl (32.0-36.0); MEAN CELL VOLUME 91.3 fl (80-96); MEAN PLT VOLUME 8.1 fl (7.5-11.1); PLATELET COUNT 116 K/MM3 (134-434); RBC 2.62 M/mm3 (3.60-5.2); RDW 16.4 % (11.6-15.6); WHITE BLOOD COUNT 2.1 K/mm3 (4.0-10.0)
[2017-05-23 13:06] LABS: ANION GAP 18 (8-16); BLOOD UREA NITROGEN 87 mg/dL (7-18); CALCIUM 7.1 mg/dL (8.5-10.1); CHLORIDE 103 mmol/L (98-107); CO2 18 mmol/L (21-32); CREATININE 4.5 mg/dL (0.55-1.02); GLUCOSE,RANDOM 112 mg/dL (74-106); POTASSIUM 4.5 mmol/L (3.5-5.1); SODIUM 139 mmol/L (136-145)
--- NOTE | 2017-05-23 13:12 | EKG ---
Test Reason : Blood Pressure : / mmHG Vent. Rate : 152 BPM Atrial Rate : 166 BPM P-R Int : 000 ms QRS Dur : 094 ms QT Int : 302 ms P-R-T Axes : 000 000 016 degrees QTc Int : 480 ms ATRIAL FIBRILLATION WITH RAPID VENTRICULAR RESPONSE CANNOT RULE OUT ANTERIOR INFARCT , AGE UNDETERMINED ABNORMAL ECG WHEN COMPARED WITH ECG OF 20-MAY-2017 04:23, NONSPECIFIC T WAVE ABNORMALITY NO LONGER EVIDENT IN LATERAL LEADS Confirmed by MD Francisco, Garrett ([id number]) on 05/23/2017 1:11:44 PM Referred By: Confirmed By:Garrett Singh MD
--- NOTE | 2017-05-23 14:00 | PN ---
Progress Note, Physician History of Present Illness: Pt seen and examined at bedside. She is drowsy. She is currently getting HD. - Current Medication List Current Medications: Active Medications Meropenem (Merrem (Restricted To Id) -) 500 mg in 10 mls @ 120 mls/hr IVPUSH BID [facility] Last Admin: 05/23/17 10:04 Dose: 120 mls/hr Ipratropium [place] (Atrovent 0.02% Nebulizer -) 1 amp NEB QIDR [facility] Last Admin: 05/23/17 12:05 Dose: 1 amp Methylprednisolone Sodium Succinate (Solu-Medrol -) 40 mg IVPUSH Q8H-IV [facility] Metoprolol Tartrate (Lopressor Injection -) 5 mg IVPUSH Q1H PRN PRN Reason: TACHYCARDIA Pantoprazole Sodium (Protonix -) 40 mg PO DAILY [facility] Last Admin: 05/23/17 10:09 Dose: Not Given - Objective Vital Signs: Vital Signs Temperature 98.4 F 05/23/17 10:00 Pulse Rate 100 H 05/23/17 12:40 Respiratory Rate 18 05/23/17 12:40 Blood Pressure 118/77 05/23/17 12:40 O2 Sat by Pulse Oximetry (%) 94 L 05/22/17 21:00 Constitutional: Yes: Calm Eyes: Yes: Conjunctiva Clear HENT: Yes: Atraumatic Neck: Yes: Supple Cardiovascular: Yes: S1, S2 Respiratory: Yes: On Nasal O2 Gastrointestinal: Yes: Soft Genitourinary: Yes: Farrar Present, Oliguria Musculoskeletal: Yes: Muscle Weakness Edema: No Neurological: Yes: Tingling (drowsy) Labs: CBC, BMP 05/23/17 11:50 05/23/17 11:50 INR, PTT INR 1.09 (0.82-1.09) 05/18/17 01:17 Problem List - Problems (1) Atrial fibrillation with RVR Code(s): I48.91 - UNSPECIFIED ATRIAL FIBRILLATION (2) Fever and neutropenia Code(s): D70.9 - NEUTROPENIA, UNSPECIFIED; R50.81 - FEVER PRESENTING WITH CONDITIONS CLASSIFIED ELSEWHERE (3) Hyperkalemia, diminished renal excretion Code(s): E87.5 - HYPERKALEMIA (4) Hyponatremia Code(s): E87.1 - HYPO-OSMOLALITY AND HYPONATREMIA (5) Multiple myeloma Code(s): C90.00 - MULTIPLE MYELOMA NOT HAVING ACHIEVED REMISSION (6) Sepsis Code(s): A41.9 - SEPSIS, UNSPECIFIED ORGANISM (7) Multiple myeloma Code(s): C90.00 - MULTIPLE MYELOMA NOT HAVING ACHIEVED REMISSION Qualifiers: Assessment/Plan Current Medications Generic Name Dose Route Start Last Admin Trade Name Freq PRN Reason Stop Dose Admin Meropenem 500 mg in 10 mls @ 120 mls/hr 05/21/17 10:00 05/23/17 10:04 Merrem (Restricted To Id) - IVPUSH 120 mls/hr BID [facility] Administration Ipratropium [place] 1 amp 05/21/17 00:00 05/23/17 12:05 Atrovent 0.02% Nebulizer - NEB 1 amp QIDR [facility] Administration Methylprednisolone Sodium Succinate 40 mg 05/23/17 18:00 Solu-Medrol - IVPUSH Q8H-IV [facility] Metoprolol Tartrate 5 mg 05/22/17 14:26 Lopressor Injection - IVPUSH Q1H PRN TACHYCARDIA Pantoprazole Sodium 40 mg 05/21/17 10:00 05/23/17 10:09 Protonix - PO Not Given DAILY [facility] Impression 1. SHANIA 2. sepsis 3. anemia 4. CKD 5. multiple myeloma 6. malnutrition 7. proteinuria 8. possible hepatocellular disease seen on ultrasound 9. interstitial lung disease 10. hyponatremia 11. hyperkalemia Plan - HD today - discussed with pts daughter - d/c angelacindy - called vascular for permacath - prbc transfusion - monitor urine output - cont abx per ID - will follow Dr Soto
--- NOTE | 2017-05-23 15:37 | PN ---
Teaching Attending Note Name of Resident: Camila Singh ATTENDING PHYSICIAN STATEMENT I saw and evaluated the patient. I reviewed the resident's note and discussed the case with the resident. I agree with the resident's findings and plan as documented. SUBJECTIVE: weak, on HD OBJECTIVE: Vital Signs Period Temp Pulse Resp BP Sys/Saucedo Pulse Ox Last 24 Hr 97.1 F-98.4 F 92-106 18-20 116-131/70-85 94 cor-rrr lungs decreased bs at bases abd soft,nt ext trace edema CBC, BMP 05/23/17 11:50 05/23/17 11:50 Microbiology 05/18/17 01:17 Blood - Peripheral Venous Blood Culture - Final NO GROWTH AFTER 5 DAYS INCUBATION 05/18/17 01:17 Blood - Peripheral Venous Blood Culture - Final NO GROWTH AFTER 5 DAYS INCUBATION 05/19/17 22:15 Stool Clostridium difficile Antigen (ROSALINDA) - Final 05/19/17 22:15 Stool Clostridium difficile Toxin Assay - Final 05/18/17 00:15 Urine - Urine Farrar Urine Culture - Final NO GROWTH OBTAINED 05/18/17 05:30 Nasopharyngeal Swab Influenza Types A,B Antigen (ROSALINDA) - Final 05/18/17 05:30 Nasopharyngeal Swab - Final ASSESSMENT AND PLAN: day #5 meropenem- planning to complete 7 days for pneumonia neutropenia resolved now on HD myeloma s/p RT
--- NOTE | 2017-05-23 16:02 | PN ---
Physical Exam: SUBJECTIVE: Patient seen and examined at bedside. Appears weak, currently receiving HD. Daughter at bedside, expresses concern over pt's renal fnc. States that mother was calling out for her last night. Pt afebrile overnight, without acute events. OBJECTIVE: Vital Signs Period Temp Pulse Resp BP Sys/Saucedo Pulse Ox Last 24 Hr 97.1 F-98.4 F 92-106 18-20 116-131/70-85 94 GENERAL: The patient is lethargic, in no acute distress. Receiving HD HEAD: Normal with no signs of trauma. NECK: Trachea midline, supple. LUNGS: wheezes appreciated in LLL. otherwise without rhonchi, crackles or accessory m usage HEART: Regular rate and rhythm, S1, S2 without murmur, rub or gallop. ABDOMEN: Soft, nontender, nondistended, normoactive bowel sounds EXTREMITIES: 2+ dorsalis pedis pulses, very warm. 1+ pitting edema noted b/l NEUROLOGICAL: Cranial nerves II through XII appear to be grossly intact. Laboratory Results - last 24 hr 05/18/17 05/21/17 05/23/17 01:17 21:40 11:50 WBC RBC Hgb Hct MCV MCH MCHC RDW Plt Count MPV Sodium 139 Potassium 4.5 Chloride 103 Carbon Dioxide 18 L Anion Gap 18 H BUN 87 H D Creatinine 4.5 H Random Glucose 112 H Calcium 7.1 L Hepatitis C Antibody <0.1 Blood Type O POSITIVE Antibody Screen Negative Crossmatch See Detail 05/23/17 05/23/17 11:50 11:50 WBC 2.1 L D RBC 2.62 L Hgb 7.8 L Hct 23.9 L MCV 91.3 MCH 29.9 MCHC 32.8 RDW 16.4 H Plt Count 116 L MPV 8.1 Sodium Potassium Chloride Carbon Dioxide Anion Gap BUN Creatinine Random Glucose Calcium Hepatitis C Antibody Blood Type O POSITIVE Antibody Screen Negative Crossmatch See Detail Active Medications Generic Name Dose Route Start Last Admin Trade Name Freq PRN Reason Stop Dose Admin Meropenem 500 mg in 10 mls @ 120 mls/hr 05/21/17 10:00 05/23/17 10:04 Merrem (Restricted To Id) - IVPUSH 120 mls/hr BID [facility] Administration Ipratropium [place] 1 amp 05/21/17 00:00 05/23/17 12:05 Atrovent 0.02% Nebulizer - NEB 1 amp QIDR [facility] Administration Methylprednisolone Sodium Succinate 40 mg 05/23/17 18:00 Solu-Medrol - IVPUSH Q8H-IV [facility] Metoprolol Tartrate 5 mg 05/22/17 14:26 Lopressor Injection - IVPUSH Q1H PRN TACHYCARDIA Pantoprazole Sodium 40 mg 05/21/17 10:00 05/23/17 10:09 Protonix - PO Not Given DAILY [facility] Microbiology 05/19/17 22:15 Stool Clostridium difficile Antigen (ROSALINDA) - Final 05/19/17 22:15 Stool Clostridium difficile Toxin Assay - Final 05/18/17 05:30 Nasopharyngeal Swab Influenza Types A,B Antigen (ROSALINDA) - Final 05/18/17 05:30 Nasopharyngeal Swab - Final 05/18/17 01:17 Blood - Peripheral Venous Blood Culture - Final NO GROWTH AFTER 5 DAYS INCUBATION 05/18/17 01:17 Blood - Peripheral Venous Blood Culture - Final NO GROWTH AFTER 5 DAYS INCUBATION 05/18/17 00:15 Urine - Urine Farrar Urine Culture - Final NO GROWTH OBTAINED ASSESSMENT/PLAN: #severe neutropenic fever possibly 2/2 chemo, or MM #sepsis 2/2 PNA -neutropenia has resolved -afebrile, however appears very weak and lethargic. -today receiving HD -Meropenem 500 mg BID- Today is Day 5 -Will continue abx for 7 day course (to finish 05/25) Thank you Camila Singh MD PGY-1 ID Team Visit type - Emergency Visit Emergency Visit: No - New Patient This patient is new to me today: No - Critical Care Critical Care patient: No
[2017-05-23 16:11] LABS: ANION GAP 11 (8-16); BLOOD UREA NITROGEN 24 mg/dL (7-18); CALCIUM 7.2 mg/dL (8.5-10.1); CHLORIDE 101 mmol/L (98-107); CO2 29 mmol/L (21-32); CREATININE 1.4 mg/dL (0.55-1.02); GLUCOSE,RANDOM 154 mg/dL (74-106); SODIUM 141 mmol/L (136-145)
[2017-05-23 16:19] LABS: POTASSIUM 2.9 mmol/L (3.5-5.1)
--- NOTE | 2017-05-23 18:11 | PN ---
Progress Note (short form) - Note Progress Note: Chief Complaint: SVTs History of Present Illness: s/p HD today. Transfused 1 unit of PRBC's with HD. Family states patient has been more alert since dialysis but is anxious b/c she has lost her hearing. Patient states sob improved. no cp, palps, dizziness. Remains weak. no cigs Current Medications Meropenem (Merrem (Restricted To Id) -) 500 mg in 10 mls @ 120 mls/hr IVPUSH BID [facility] Last Admin: 05/23/17 10:04 Dose: 120 mls/hr Ipratropium [place] (Atrovent 0.02% Nebulizer -) 1 amp NEB QIDR [facility] Last Admin: 05/23/17 17:48 Dose: 1 amp Methylprednisolone Sodium Succinate (Solu-Medrol -) 40 mg IVPUSH Q8H-IV [facility] Metoprolol Tartrate (Lopressor Injection -) 5 mg IVPUSH Q1H PRN PRN Reason: TACHYCARDIA Pantoprazole Sodium (Protonix -) 40 mg PO DAILY [facility] Last Admin: 05/23/17 10:09 Dose: Not Given - Objective Vital Signs: Vital Signs - 24 hr 05/22/17 05/23/17 05/23/17 21:00 01:00 06:00 Temperature 97.4 F L 97.6 F Pulse Rate 101 H 105 H Respiratory 18 18 20 Rate Blood Pressure 127/76 119/80 O2 Sat by Pulse 94 L Oximetry (%) 05/23/17 05/23/17 05/23/17 10:00 11:30 11:40 Temperature 98.4 F Pulse Rate 105 H 102 H 92 H Respiratory 20 19 18 Rate Blood Pressure 131/85 116/74 O2 Sat by Pulse Oximetry (%) 05/23/17 05/23/17 05/23/17 12:10 12:40 13:10 Temperature Pulse Rate 98 H 100 H 104 H Respiratory 18 18 18 Rate Blood Pressure 119/81 118/77 118/77 O2 Sat by Pulse Oximetry (%) 05/23/17 05/23/17 05/23/17 13:40 14:10 14:40 Temperature Pulse Rate 101 H 58 L 100 H Respiratory 18 18 18 Rate Blood Pressure 119/79 120/80 133/84 O2 Sat by Pulse Oximetry (%) 05/23/17 05/23/17 15:00 16:01 Temperature 97.5 F L 98 F Pulse Rate 106 H 102 H Respiratory 18 20 Rate Blood Pressure 128/79 131/64 O2 Sat by Pulse Oximetry (%) Intake & Output 05/21/17 05/22/17 05/23/17 05/24/17 07:59 07:59 07:59 07:59 Intake Total 1381 20 20 Output Total 400 200 250 Balance 981 -180 -230 Constitutional: Yes: No Distress, Calm Eyes: No: Sclera Icterus HENT: No: Nasal Congestion Cardiovascular: Yes: tachycardic, Regular Rate and Rhythm, Rub, S1, S2, Other ( PMI non diplaced). No: JVD (tds habitus), Gallop, 2/6 diastolic murmur at sternal border. Respiratory: Yes: CTA Bilaterally. No: Accessory Muscle Use, Rales, Wheezes Gastrointestinal: Yes: Normal Bowel Sounds, Soft. No: Tenderness Musculoskeletal: Yes: Other (No kyphosis) Extremities: No: Cold Edema: no Integumentary: No: Jaundice Neurological: Yes: Lethargy. No: Seizure Psychiatric: No: Agitated Labs: CBC, BMP 05/23/17 11:50 Laboratory Tests 05/21/17 05/23/17 15:30 11:50 Sodium 139 Potassium 4.5 Carbon Dioxide 18 L BUN 87 H D Creatinine 4.5 H Stool Occult Blood Negative - ....Imaging EKG: Other (tele: sr/sinus tach with freq APCs, occ pvc's. occasional intermittent runs of self-limited svt). Assessment/Plan echo 02/2017: nl lv/rv, mild mr/tr, nl rvsp echo 04/2017: nl lv/rv, mild mr ct chest: b/l effs, ILD ECG's 05/20, 05/21: SVT/AFL present on some, nonsp ST-Ts--no acute changes (no ST elevation) a/p: 81 f hx MM, hld, here with sepsis and new onset afib. 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 source (PNA?)--ID notes appreciated -cont abx per ID -now off ivf's. -infection w/u in progress -chemo per onc -bp borderline, mostly 90s-100s, off pressors--dropped to 80s 05/21 during HD. Recently bp's improved 110's-120's. -pancytopenic--per onc. s/p transfusion today 05/23. r/o uremic pericarditis: -new pericardial friction rub on exam05/22, ? inflammation is driving PSVT tendencies -no ST changes on ecg's yesterday vs DOA, but has had nonsp ST-T changes here different vs prior ecg -low bp during prior HD --o/w she's been hemodynamically stable. clinically improving sob status. -rpt echo pending. new onset afib, brief PSVT runs: -occurred here in setting of sepsis. chadsvasc is 3, --> pt with chronic anemia , d/w heme and cleared for AC -05/21 during HD had episodes of AFL with 2:1 > variable conduction, rapid HRs, with low BPs in 80s. -if continues to occur during HD, it will make successful dialysis very difficult. -has remained in sinus since. d/w'd dtr's option of adding amio for SVT/AFL suppression, but they prefer holding off unless recurrent episodes, since they are in general concerned regarding medication toxicity potential. -05/22: family declining heparin b/c of bleeding thru skin on hands and concerns of risks of medication. Dr. Gibson explained to them that there is an uncertain degree of risk of embolism/CVA with brief PAFL, though it is felt to be statistically very low with brief duration as with her. they verbalize understanding and preference to take that risk in order to avoid risk of bleeding. heparin stopped. - 05/23: still with intermittent runs of svt. consider low dose av savita blockade tomorrow if persists and family amenable. lyte repletion per renal. -cont tele monitoring - acute hypoxic resp failure, acute diast chf: -05/20: pt with signif tachypnea, using resp muscles, + audible wheezing. cxr with incr effusions and chf pattern. s/p lasix 40 ivp x1 -05/21: renal fxn worsening significantly (bun/creat 101/5.7), K 6.6. CXR much improved. plan per dr bateman d/w family is to begin HD today (shiley catheter access placed this am). defer lasix - 05/23: sob continues to improve. s/p HD today. volume status per renal. aj: -? sepsis ATN -required initiation of HD here
--- NOTE | 2017-05-23 21:08 | HOSP ---
Subjective - Review of Symptoms Events since last encounter: Hospitalist Encounter Notified by the primary RN that a Dr. Gregorio patient reports bilateral hearing loss. Arrived to bedside, patient is awake, alert, and oriented x1 with her two daughters. A/P 81 y/o woman with PMHx multiple myeloma Physical Examination Vital Signs: Vital Signs Temperature 98 F 05/23/17 16:01 Pulse Rate 102 H 05/23/17 16:01 Respiratory Rate 20 05/23/17 16:01 Blood Pressure 131/64 05/23/17 16:01 O2 Sat by Pulse Oximetry (%) 94 L 05/22/17 21:00 Labs: CBC, BMP 05/23/17 11:50 05/23/17 15:00
[2017-05-23] MEDS ORDERED: PT OWN MED DRAWER 7, Y5N ONE (22:39)
[2017-05-24] MEDS: methylPREDNISolone NA SUCC 40 MG/1 ML VIAL IVPUSH SCH ×4 (02:03→22:20)
[2017-05-24 06:07] LABS: HBSAG SCREEN Negative (Negative); HEP A AB, IGM Negative (Negative); HEP B CORE AB, TOT Negative (Negative)
[2017-05-24] MEDS: IPRATROPIUM BR 0.02% 0.5 MG/2.5 ML VIAL.NEB. NEB SCH ×3 (07:05→17:34)
[2017-05-24 08:54] LABS: HEMATOCRIT 27.2 % (32.4-45.2); HEMOGLOBIN 8.9 GM/dL (10.7-15.3); MCH 28.2 pg (25.7-33.7); MCHC 32.6 g/dl (32.0-36.0); MEAN CELL VOLUME 86.7 fl (80-96); MEAN PLT VOLUME 7.7 fl (7.5-11.1); PLATELET COUNT 90 K/MM3 (134-434); RBC 3.14 M/mm3 (3.60-5.2); WHITE BLOOD COUNT 2.5 K/mm3 (4.0-10.0)
[2017-05-24 09:08] LABS: ALBUMIN 2.2 g/dl (3.4-5.0); ANION GAP 16 (8-16); BLOOD UREA NITROGEN 41 mg/dL (7-18); CALCIUM 7.2 mg/dL (8.5-10.1); CHLORIDE 98 mmol/L (98-107); CO2 24 mmol/L (21-32); CREATININE 2.5 mg/dL (0.55-1.02); GLUCOSE,RANDOM 113 mg/dL (74-106); MAGNESIUM 1.9 mg/dL (1.8-2.4); PHOSPHOROUS 4.8 mg/dL (2.5-4.9); POTASSIUM 3.5 mmol/L (3.5-5.1); SGOT/AST 41 U/L (15-37); SGPT/ALT 15 U/L (12-78); SODIUM 138 mmol/L (136-145)
[2017-05-24 09:09] LABS: ALK PHOS 53 U/L (45-117); BILIRUBIN,TOTAL 0.8 mg/dL (0.2-1.0); TOT PROT 5.5 g/dl (6.4-8.2)
[2017-05-24] MEDS ORDERED: PT OWN MED DRAWER 7, Y5N ONE ×3 (09:58→23:33)
[2017-05-24] MEDS: MEROPENEM 500 MG PUSH 500 MG/10 ML DISP.SYRIN IVPUSH SCH ×3 (10:01→22:20)
[2017-05-24] MEDS: PANTOPRAZOLE 40 MG TABLET (FP) PO SCH (10:02)
--- NOTE | 2017-05-24 11:23 | PN ---
Progress Note, Physician Chief Complaint: Very lethargic, unable to obtain. Daughters claim patient now has acute bilateral hearing loss (but one daughter did say patient has had difficulty hearing for a while now) but unable to confirm secondary to lethargy. Continue discussion about goals of care. - Current Medication List Current Medications: Active Medications Meropenem (Merrem (Restricted To Id) -) 500 mg in 10 mls @ 120 mls/hr IVPUSH BID [facility] Last Admin: 05/24/17 10:01 Dose: Not Given Ipratropium [place] (Atrovent 0.02% Nebulizer -) 1 amp NEB QIDR [facility] Last Admin: 05/24/17 07:05 Dose: Not Given Methylprednisolone Sodium Succinate (Solu-Medrol -) 40 mg IVPUSH Q8H-IV [facility] Last Admin: 05/24/17 10:02 Dose: Not Given Metoprolol Tartrate (Lopressor Injection -) 5 mg IVPUSH Q1H PRN PRN Reason: TACHYCARDIA Pantoprazole Sodium (Protonix -) 40 mg PO DAILY [facility] Last Admin: 05/24/17 10:02 Dose: Not Given - Objective Vital Signs: Vital Signs Temperature 36.8 C 05/24/17 06:00 Pulse Rate 103 H 05/24/17 06:00 Respiratory Rate 20 05/24/17 06:00 Blood Pressure 135/92 05/24/17 06:00 O2 Sat by Pulse Oximetry (%) 96 05/23/17 21:00 Constitutional: Yes: No Distress, Other (lethargic) Cardiovascular: Yes: Tachycardia. No: Pulse Irregular, Gallop, Murmur, Rub Respiratory: Yes: Regular, CTA Bilaterally. No: Rales, Rhonchi, Wheezes Gastrointestinal: Yes: Normal Bowel Sounds, Soft. No: Distention, Tenderness Extremities: Yes: WNL Edema: Yes Edema: LLE: 2+, RLE: 2+ Labs: CBC, BMP 05/24/17 06:00 05/24/17 06:00 INR, PTT INR 1.09 (0.82-1.09) 05/18/17 01:17 Problem List - Problems (1) Septic shock Code(s): A41.9 - SEPSIS, UNSPECIFIED ORGANISM; R65.21 - SEVERE SEPSIS WITH SEPTIC SHOCK (2) Fever and neutropenia Code(s): D70.9 - NEUTROPENIA, UNSPECIFIED; R50.81 - FEVER PRESENTING WITH CONDITIONS CLASSIFIED ELSEWHERE (3) Atrial fibrillation with RVR Code(s): I48.91 - UNSPECIFIED ATRIAL FIBRILLATION (4) Acute renal failure Code(s): N17.9 - ACUTE KIDNEY FAILURE, UNSPECIFIED (5) Metabolic encephalopathy Code(s): G93.41 - METABOLIC ENCEPHALOPATHY (6) Hyponatremia Code(s): E87.1 - HYPO-OSMOLALITY AND HYPONATREMIA (7) Hypocalcemia Code(s): E83.51 - HYPOCALCEMIA (8) Multiple myeloma Code(s): C90.00 - MULTIPLE MYELOMA NOT HAVING ACHIEVED REMISSION Assessment/Plan (1) Septic shock Assessment/Plan -resolved -cultures are negative -ID following, continuing merrem day 6 -continue to monitor on telemetry Code(s): A41.9 - SEPSIS, UNSPECIFIED ORGANISM; R65.21 - SEVERE SEPSIS WITH SEPTIC SHOCK (2) Fever and neutropenia Assessment/Plan: -resolved -continue merrem as above Code(s): D70.9 - NEUTROPENIA, UNSPECIFIED; R50.81 - FEVER PRESENTING WITH CONDITIONS CLASSIFIED ELSEWHERE (3) Atrial fibrillation with RVR Assessment/Plan: -remains tachycardic but better controlled -cardiology following and case discussed -continue prn metoprolol Code(s): I48.91 - UNSPECIFIED ATRIAL FIBRILLATION (4) Acute renal failure Assessment/Plan: -case d/w Dr Soto -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 and multiple episodes of ischemia -continue HD currently -d/w daughters about emt intermediate goals, HD in this case is life prolonging but not addressing the underlying issue Code(s): N17.9 - ACUTE KIDNEY FAILURE, UNSPECIFIED (5) Metabolic encephalopathy Assessment/Plan: -still very lethargic -most likely secondary to renal failure -receiving HD, monitor for improvement Code(s): G93.41 - METABOLIC ENCEPHALOPATHY (6) Hyponatremia Assessment/Plan: -resolved Code(s): E87.1 - HYPO-OSMOLALITY AND HYPONATREMIA (7) Hypocalcemia Assessment/Plan: -monitor, may need replacement Code(s): E83.51 - HYPOCALCEMIA (8) Multiple myeloma Assessment/Plan: -oncology following -patient now endstage -would benefit from hospice and moving towards that direction Code(s): C90.00 - MULTIPLE MYELOMA NOT HAVING ACHIEVED REMISSION (9) Anemia -s/p 1 unit
--- NOTE | 2017-05-24 11:26 | PN ---
Progress Note (short form) - Note Progress Note: s: lethargic, confused Current Medications Generic Name Dose Route Start Last Admin Trade Name Freq PRN Reason Stop Dose Admin Meropenem 500 mg in 10 mls @ 120 mls/hr 05/21/17 10:00 05/24/17 10:01 Merrem (Restricted To Id) - IVPUSH Not Given BID [facility] Ipratropium [place] 1 amp 05/21/17 00:00 05/24/17 07:05 Atrovent 0.02% Nebulizer - NEB Not Given QIDR [facility] Methylprednisolone Sodium Succinate 40 mg 05/23/17 18:00 05/24/17 10:02 Solu-Medrol - IVPUSH Not Given Q8H-IV [facility] Metoprolol Tartrate 5 mg 05/22/17 14:26 Lopressor Injection - IVPUSH Q1H PRN TACHYCARDIA Pantoprazole Sodium 40 mg 05/21/17 10:00 05/24/17 10:02 Protonix - PO Not Given DAILY [facility] o: Vital Signs Period Temp Pulse Resp BP Sys/Saucedo Pulse Ox Last 24 Hr 97.5 F-98.3 F 58-107 18-20 111-135/64-92 96 nad no jvd rrr s1s2 no mrg cta bl no jaundice diaphoresis pos dp pt no carotid bruits no le e/c/c abd nt nd pos bs Laboratory Last Values WBC 2.5 K/mm3 (4.0-10.0) L 05/24/17 06:00 RBC 3.14 M/mm3 (3.60-5.2) L 05/24/17 06:00 Hgb 8.9 GM/dL (10.7-15.3) L D 05/24/17 06:00 Hct 27.2 % (32.4-45.2) L 05/24/17 06:00 MCV 86.7 fl (80-96) 05/24/17 06:00 MCH 28.2 pg (25.7-33.7) 05/24/17 06:00 MCHC 32.6 g/dl (32.0-36.0) 05/24/17 06:00 RDW 19.0 % (11.6-15.6) H D 05/24/17 06:00 Plt Count 90 K/MM3 (134-434) L D 05/24/17 06:00 MPV 7.7 fl (7.5-11.1) 05/24/17 06:00 Absolute Neuts (auto) 0.0 # (42.8-82.8) L 05/19/17 08:20 Absolute Lymphs (auto) 0.9 (8-40) L 05/19/17 08:20 Absolute Monos (auto) 1.7 # (3.8-10.2) L 05/19/17 08:20 Absolute Eos (auto) 0.0 # (0-4.5) 05/19/17 08:20 Absolute Basos (auto) 0.0 # (0.1-1) L 05/19/17 08:20 Total Counted 100 05/20/17 09:50 Neutrophils % No Result Required. 05/24/17 06:00 Neutrophils % (Manual) 83.0 % (42.8-82.8) H D 05/21/17 06:15 Band Neutrophils % 0.0 % 05/21/17 06:15 Lymphocytes % No Result Required. 05/24/17 06:00 Lymphocytes % (Manual) 7.4 % (8-40) L D 05/21/17 06:15 Monocytes % (Manual) 9 % (3.8-10.2) 05/21/17 06:15 Eosinophils % (Manual) 0.0 % (0-4.5) D 05/21/17 06:15 Basophils % (Manual) 0.0 % (0-2.0) 05/21/17 06:15 Myelocytes % (Man) 0 % (0-2) 05/21/17 06:15 Metamyelocytes 0 % (0-2) 05/21/17 06:15 Hypochromia 2+ 05/21/17 06:15 Platelet Estimate Decreased 05/21/17 06:15 Polychromasia 0 05/21/17 06:15 Poikilocytosis 0 05/21/17 06:15 Anisocytosis 0 05/21/17 06:15 Microcytosis 0 05/21/17 06:15 Macrocytosis 0 05/21/17 06:15 Target Cells 1+ 05/21/17 06:15 PT with INR 12.30 SEC (9.98-11.88) H 05/18/17 01:17 INR 1.09 (0.82-1.09) 05/18/17 01:17 PTT (Actin FS) 25.0 SECONDS (26.9-34.4) L 05/24/17 06:00 Anticoagulation Therapy Y 05/18/17 06:00 Puncture Site Left radial 05/18/17 06:00 ABG pH 7.38 (7.35-7.45) 05/18/17 06:00 ABG pCO2 at Pt Temp 25.4 mmHg (35-45) L 05/18/17 06:00 ABG pO2 at Pt Temp 88.3 mmHg (68-100) 05/18/17 06:00 ABG HCO3 14.7 meq/L (22-26) L* 05/18/17 06:00 ABG O2 Sat (Measured) 96.0 % (90-98.9) 05/18/17 06:00 ABG O2 Content 9.1 % vol (15-22) L* 05/18/17 06:00 ABG Base Excess -9.1 meq/l (-2-2) L 05/18/17 06:00 Neil Test Positive 05/18/17 06:00 VBG pH 7.40 (7.32-7.42) 05/18/17 01:17 POC VBG pCO2 29.9 mmHg (38-52) L D 05/18/17 01:17 POC VBG pO2 39.2 mmHg (28-48) D 05/18/17 01:17 Mixed VBG HCO3 18.2 meq/L (19-25) L 05/18/17 01:17 O2 Delivery Device Y 05/18/17 06:00 Oxygen Flow Rate 3l 05/18/17 06:00 Vent Mode Y 05/18/17 06:00 Vent Rate Y 05/18/17 06:00 Mechanical Rate Y 05/18/17 06:00 Pressure Support Vent Y 05/18/17 06:00 Sodium 138 mmol/L (136-145) 05/24/17 06:00 Potassium 3.5 mmol/L (3.5-5.1) D 05/24/17 06:00 Chloride 98 mmol/L (98-107) 05/24/17 06:00 Carbon Dioxide 24 mmol/L (21-32) 05/24/17 06:00 Anion Gap 16 (8-16) 05/24/17 06:00 BUN 41 mg/dL (7-18) H D 05/24/17 06:00 Creatinine 2.5 mg/dL (0.55-1.02) H D 05/24/17 06:00 Creat Clearance w eGFR 18.44 (>60) 05/24/17 06:00 Random Glucose 113 mg/dL (74-106) H D 05/24/17 06:00 Serum Osmolality 294 mosm/kg (278-305) 05/18/17 05:12 Lactic Acid 1.7 mmol/L (0.4-2.0) 05/18/17 18:52 Calcium 7.2 mg/dL (8.5-10.1) L 05/24/17 06:00 Phosphorus 4.8 mg/dL (2.5-4.9) D 05/24/17 06:00 Magnesium 1.9 mg/dL (1.8-2.4) D 05/24/17 06:00 Total Bilirubin 0.8 mg/dL (0.2-1.0) D 05/24/17 06:00 AST 41 U/L (15-37) H D 05/24/17 06:00 ALT 15 U/L (12-78) 05/24/17 06:00 Alkaline Phosphatase 53 U/L (45-117) 05/24/17 06:00 LD Total 391 U/L (84-246) H D 05/19/17 08:20 Creatine Kinase 37 IU/L (26-192) 05/18/17 01:17 Troponin I < 0.02 ng/ml (0.00-0.05) 05/18/17 01:17 Total Protein 5.5 g/dl (6.4-8.2) L 05/24/17 06:00 Albumin 2.2 g/dl (3.4-5.0) L 05/24/17 06:00 TSH 1.30 uIU/ml (0.358-3.74) D 05/19/17 08:20 Free T4 0.99 ng/dl (0.76-1.46) 05/19/17 08:20 Cortisol AM Sample 16.9 ug/dL (.) 05/18/17 13:33 Urine Color Ltyellow 05/19/17 15:30 Urine Appearance Slcloudy 05/19/17 15:30 Urine pH 6.0 (5.0-8.0) 05/19/17 15:30 Ur Specific [place] 1.006 (1.001-1.035) 05/19/17 15:30 Urine Protein 1+ (NEGATIVE) H 05/19/17 15:30 Urine Glucose (UA) Negative (NEGATIVE) 05/19/17 15:30 Urine Ketones Negative (NEGATIVE) 05/19/17 15:30 Urine Blood 3+ (NEGATIVE) H 05/19/17 15:30 Urine Nitrite Negative (NEGATIVE) 05/19/17 15:30 Urine Bilirubin Negative (NEGATIVE) 05/19/17 15:30 Urine Urobilinogen Negative mg/dL (0.2-1.0) 05/19/17 15:30 Ur Leukocyte Esterase Trace (NEGATIVE) H 05/19/17 15:30 Urine WBC (Auto) 2 /hpf (3-5) 05/19/17 15:30 Urine RBC (Auto) 1 /hpf (0-3) 05/19/17 15:30 Ur Epithelial Cells Rare /HPF (FEW) 05/19/17 15:30 Urine Bacteria Rare /hpf (NONE SEEN) 05/19/17 15:30 Urine Mucus Rare 05/18/17 01:57 Urine Osmolality 196 mosm/kg (300-900) L 05/18/17 11:30 Ur Random Sodium 54 MMOL/L 05/19/17 15:30 Ur Random Potassium 9.3 MMOL/L 05/19/17 15:30 Ur Random Chloride 48 MMOL/L 05/19/17 15:30 Urine Creatinine < 13.0 mg/dL (20-320) L 05/19/17 15:30 Stool Occult Blood Negative (NEGATIVE) 05/21/17 15:30 Stool O & P Wet [place]anc[place] 05/19/17 22:15 Digoxin 2.3427 ng/ml (0.8-2.0) H 05/20/17 09:50 Hep A IgM Ab Confirm Negative (Negative) 05/21/17 21:40 Hepatitis A Ab Total Positive (Negative) H 05/21/17 21:40 Hep Bs Antigen Negative (Negative) 05/21/17 21:40 Hep Bs Antibody Non reactive (.) 05/21/17 21:40 Hep B Core Total Ab Negative (Negative) 05/21/17 21:40 Hepatitis C Antibody <0.1 s/co ratio (0.0-0.9) 05/21/17 21:40 O & P Permanent Slide Cancelled 05/19/17 22:15 Blood Type O POSITIVE 05/23/17 11:50 Antibody Screen Negative 05/23/17 11:50 Crossmatch See Detail 05/23/17 11:50 tele: sr echo 02/2017: nl lv/rv, mild mr/tr, nl rvsp echo 04/2017: nl lv/rv, mild mr echo 04/2017 repeat: nl lv/rv, mild-mod mr ct chest: b/l effs, ILD a/p: 81 f hx MM, hld, here with sepsis and new onset afib. 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 source (PNA?)--ID notes appreciated -cont abx per ID -chemo per onc -bp borderline, mostly 90s-100s, off pressors--dropped to 80s 05/21 during HD. Recently bp's improved 110's-120's. -pancytopenic--per onc. s/p transfusion today 05/23. new onset afib, brief PSVT runs: -occurred here in setting of sepsis. chadsvasc is 3, --> pt with chronic anemia , d/w heme and cleared for AC -05/21 during HD had episodes of AFL with 2:1 > variable conduction, rapid HRs, with low BPs in 80s. -if continues to occur during HD, it will make successful dialysis very difficult. -has remained in sinus since. d/w'd dtr's option of adding amio for SVT/AFL suppression, but they prefer holding off unless recurrent episodes, since they are in general concerned regarding medication toxicity potential. -05/22: family declining heparin b/c of bleeding thru skin on hands and concerns of risks of medication. Dr. Gibson explained to them that there is an uncertain degree of risk of embolism/CVA with brief PAFL, though it is felt to be statistically very low with brief duration as with her. they verbalize understanding and preference to take that risk in order to avoid risk of bleeding. heparin stopped. - 05/23: still with intermittent runs of svt. -05/24: no sig svt overnight acute hypoxic resp failure, acute diast chf: -05/20: pt with signif tachypnea, using resp muscles, + audible wheezing. cxr with incr effusions and chf pattern. s/p lasix 40 ivp x1 -05/21: renal fxn worsening significantly (bun/creat 101/5.7), K 6.6. CXR much improved. plan per dr bateman d/w family is to begin HD today (shiley catheter access placed this am). defer lasix - 05/23: sob continues to improve. s/p HD today. volume status per renal. -05/24: hd per renal aj: -? sepsis ATN -required initiation of HD here
[2017-05-24 12:59] LABS: ANISOCYTOSIS 3+; MACROCYTOSIS 0; PLATELET ESTIMATE DECREASED; TARGET CELLS 1+
--- NOTE | 2017-05-24 13:11 | PN ---
Progress Note, Physician History of Present Illness: pulmonary alert,confused,-resp distress,O2 sat 96% on nasal o2 - Current Medication List Current Medications: Active Medications Meropenem (Merrem (Restricted To Id) -) 500 mg in 10 mls @ 120 mls/hr IVPUSH BID [facility] Last Admin: 05/24/17 11:37 Dose: 120 mls/hr Ipratropium [place] (Atrovent 0.02% Nebulizer -) 1 amp NEB QIDR [facility] Last Admin: 05/24/17 07:05 Dose: Not Given Methylprednisolone Sodium Succinate (Solu-Medrol -) 40 mg IVPUSH Q8H-IV [facility] Last Admin: 05/24/17 11:37 Dose: 40 mg Metoprolol Tartrate (Lopressor Injection -) 5 mg IVPUSH Q1H PRN PRN Reason: TACHYCARDIA Pantoprazole Sodium (Protonix -) 40 mg PO DAILY [facility] Last Admin: 05/24/17 10:02 Dose: Not Given - Objective Vital Signs: Vital Signs Temperature 98.3 F 05/24/17 06:00 Pulse Rate 103 H 05/24/17 06:00 Respiratory Rate 20 05/24/17 06:00 Blood Pressure 135/92 05/24/17 06:00 O2 Sat by Pulse Oximetry (%) 96 05/23/17 21:00 Constitutional: Yes: Well Nourished, Calm, Other (confused) Eyes: Yes: WNL HENT: Yes: WNL Neck: Yes: Supple Cardiovascular: Yes: Regular Rate and Rhythm, S1, S2 Respiratory: Yes: Diminished Gastrointestinal: Yes: Normal Bowel Sounds, Soft Extremities: Yes: WNL Edema: No Labs: CBC, BMP 05/24/17 06:00 05/24/17 06:00 INR, PTT INR 1.09 (0.82-1.09) 05/18/17 01:17 Problem List - Problems (1) Acute respiratory failure Code(s): J96.00 - ACUTE RESPIRATORY FAILURE, UNSP W HYPOXIA OR HYPERCAPNIA (2) Atrial fibrillation with RVR Code(s): I48.91 - UNSPECIFIED ATRIAL FIBRILLATION (3) Hyperkalemia, diminished renal excretion Code(s): E87.5 - HYPERKALEMIA (4) Multiple myeloma Code(s): C90.00 - MULTIPLE MYELOMA NOT HAVING ACHIEVED REMISSION (5) Sepsis Code(s): A41.9 - SEPSIS, UNSPECIFIED ORGANISM (6) Severe sepsis Code(s): A41.9 - SEPSIS, UNSPECIFIED ORGANISM; R65.20 - SEVERE SEPSIS WITHOUT SEPTIC SHOCK (7) Acute renal failure Code(s): N17.9 - ACUTE KIDNEY FAILURE, UNSPECIFIED (8) Metabolic encephalopathy Code(s): G93.41 - METABOLIC ENCEPHALOPATHY (9) Multiple myeloma Code(s): C90.00 - MULTIPLE MYELOMA NOT HAVING ACHIEVED REMISSION Qualifiers: Assessment/Plan A/P r/o Pneumonia Neutropenic Severe Sepsis Acute on Chronic Renal Failure Lactic Acidosis Hyponatremia Hyperkalemia Multiple Myeloma on chemo COPD Hyperlipidemia - NIPPV prn,O2 - antibiotics as per ID - steroid taper - atrovent nebs - monitor urine output, creatinine - monitor CBC - transfuse as needed DR DOMINGO -
--- NOTE | 2017-05-24 13:15 | PN ---
Progress Note, Physician History of Present Illness: Pt seen and examined at bedside. She is confused and drowsy. - Current Medication List Current Medications: Active Medications Meropenem (Merrem (Restricted To Id) -) 500 mg in 10 mls @ 120 mls/hr IVPUSH BID [facility] Last Admin: 05/24/17 11:37 Dose: 120 mls/hr Ipratropium [place] (Atrovent 0.02% Nebulizer -) 1 amp NEB QIDR [facility] Last Admin: 05/24/17 07:05 Dose: Not Given Methylprednisolone Sodium Succinate (Solu-Medrol -) 40 mg IVPUSH Q8H-IV [facility] Last Admin: 05/24/17 11:37 Dose: 40 mg Metoprolol Tartrate (Lopressor Injection -) 5 mg IVPUSH Q1H PRN PRN Reason: TACHYCARDIA Pantoprazole Sodium (Protonix -) 40 mg PO DAILY [facility] Last Admin: 05/24/17 10:02 Dose: Not Given - Objective Vital Signs: Vital Signs Temperature 98.3 F 05/24/17 06:00 Pulse Rate 103 H 05/24/17 06:00 Respiratory Rate 20 05/24/17 06:00 Blood Pressure 135/92 05/24/17 06:00 O2 Sat by Pulse Oximetry (%) 96 05/23/17 21:00 Constitutional: Yes: Anxious, Mild Distress Cardiovascular: Yes: S1, S2 Respiratory: Yes: On Nasal O2 Gastrointestinal: Yes: Soft Genitourinary: Yes: [place] Present Musculoskeletal: Yes: Muscle Weakness Edema: Yes Edema: LLE: Trace, RLE: Trace Neurological: Yes: Confusion Labs: CBC, BMP 05/24/17 06:00 05/24/17 06:00 INR, PTT INR 1.09 (0.82-1.09) 05/18/17 01:17 Problem List - Problems (1) Atrial fibrillation with RVR Code(s): I48.91 - UNSPECIFIED ATRIAL FIBRILLATION (2) Fever and neutropenia Code(s): D70.9 - NEUTROPENIA, UNSPECIFIED; R50.81 - FEVER PRESENTING WITH CONDITIONS CLASSIFIED ELSEWHERE (3) Hyperkalemia, diminished renal excretion Code(s): E87.5 - HYPERKALEMIA (4) Hyponatremia Code(s): E87.1 - HYPO-OSMOLALITY AND HYPONATREMIA (5) Multiple myeloma Code(s): C90.00 - MULTIPLE MYELOMA NOT HAVING ACHIEVED REMISSION (6) Sepsis Code(s): A41.9 - SEPSIS, UNSPECIFIED ORGANISM (7) Multiple myeloma Code(s): C90.00 - MULTIPLE MYELOMA NOT HAVING ACHIEVED REMISSION Qualifiers: Assessment/Plan Current Medications Generic Name Dose Route Start Last Admin Trade Name Freq PRN Reason Stop Dose Admin Meropenem 500 mg in 10 mls @ 120 mls/hr 05/21/17 10:00 05/24/17 11:37 Merrem (Restricted To Id) - IVPUSH 120 mls/hr BID [facility] Administration Ipratropium [place] 1 amp 05/21/17 00:00 05/24/17 07:05 Atrovent 0.02% Nebulizer - NEB Not Given QIDR [facility] Methylprednisolone Sodium Succinate 40 mg 05/23/17 18:00 05/24/17 11:37 Solu-Medrol - IVPUSH 40 mg Q8H-IV [facility] Administration Metoprolol Tartrate 5 mg 05/22/17 14:26 Lopressor Injection - IVPUSH Q1H PRN TACHYCARDIA Pantoprazole Sodium 40 mg 05/21/17 10:00 05/24/17 10:02 Protonix - PO Not Given DAILY [facility] Impression 1. SHANIA 2. sepsis 3. anemia 4. CKD/ESRD 5. multiple myeloma 6. malnutrition 7. proteinuria 8. possible hepatocellular disease seen on ultrasound 9. interstitial lung disease 10. hyponatremia 11. hyperkalemia Plan - discussed HD with family, they will have a family meeting and decide on continuing dialysis or not - repeat labs in am - discussed with vascular - discussed with THERESE - gina for anemia - oncology follow up - cont abx per ID - will follow Dr Soto
--- NOTE | 2017-05-24 15:52 | PN ---
Progress Note (short form) - Note Progress Note: Chart reviewed in detail. O/E: General: awake, HEENT: NCAT Cardiac: rrr Lungs: decreased breath sounds Abdomen: ND NT LE: +1 edema b/l LE. Last Vital Signs Temp Pulse Resp BP Pulse Ox 97.3 F L 93 H 20 132/77 99 05/24/17 10:00 05/24/17 10:24 05/24/17 10:00 05/24/17 10:00 05/24/17 10:24 CBC, BMP 05/24/17 06:00 05/24/17 06:00 Current Medications Generic Name Dose Route Start Last Admin Trade Name Freq PRN Reason Stop Dose Admin Meropenem 500 mg in 10 mls @ 120 mls/hr 05/21/17 10:00 05/24/17 11:37 Merrem (Restricted To Id) - IVPUSH 120 mls/hr BID [facility] Administration Ipratropium [place] 1 amp 05/21/17 00:00 05/24/17 12:05 Atrovent 0.02% Nebulizer - NEB Not Given QIDR [facility] Methylprednisolone Sodium Succinate 20 mg 05/24/17 22:00 Solu-Medrol - IVPUSH BID [facility] Metoprolol Tartrate 5 mg 05/22/17 14:26 Lopressor Injection - IVPUSH Q1H PRN TACHYCARDIA Pantoprazole Sodium 40 mg 05/21/17 10:00 05/24/17 10:02 Protonix - PO Not Given DAILY [facility] Patient with Multiple Myeloma not in CR, last treatment was in 03/2017. The new cytopenias likely from Myeloma. course complicated by worsening CKD. She is s/p two sessions of HD this admission. her performance status ,frailty and co-morbids at present time would not allow chemotherapy to be administered to control Myeloma, updated daughters. Supportive transfusions as needed. continues to be in meropenam Daughters to decide on further HD pAfl, off AC as per daughters preferences. Problem List - Problems (1) Atrial fibrillation with RVR Code(s): I48.91 - UNSPECIFIED ATRIAL FIBRILLATION (2) Fever and neutropenia Code(s): D70.9 - NEUTROPENIA, UNSPECIFIED; R50.81 - FEVER PRESENTING WITH CONDITIONS CLASSIFIED ELSEWHERE (3) Acute renal failure Code(s): N17.9 - ACUTE KIDNEY FAILURE, UNSPECIFIED (4) Multiple myeloma Code(s): C90.00 - MULTIPLE MYELOMA NOT HAVING ACHIEVED REMISSION
--- NOTE | 2017-05-24 17:17 | PN ---
Physical Exam: SUBJECTIVE: Patient seen and examined at bedside. Overnight, pt afebrile with runs of tachycardia ranging ~103 bpm. This AM, pt endorses pain and hearing loss in L ear and appears extremely confused, very anxious. Daughters at bedside OBJECTIVE: Vital Signs Period Temp Pulse Resp BP Sys/Saucedo Pulse Ox Last 24 Hr 97.3 F-98.3 F 93-107 18-20 111-145/74-92 96-99 GENERAL: The patient is confused, in no acute distress. HEAD: Normal with no signs of trauma. NECK: Trachea midline, supple. LUNGS: diffuse rhonchi appreciated b/l. Without accessory m. usage HEART: Regular rate and rhythm, S1, S2 without murmur, rub or gallop. ABDOMEN: Soft, nontender, nondistended, normoactive bowel sounds EXTREMITIES: 2+ dorsalis pedis pulses, very warm. Without edema NEUROLOGICAL: Cranial nerves II through XII appear to be grossly intact. Laboratory Tests 05/24/17 05/24/17 06:00 06:00 WBC 2.5 L RBC 3.14 L Hgb 8.9 L D Hct 27.2 L RDW 19.0 H D Plt Count 90 L D Neutrophils % (Manual) 83.3 H Sodium 138 Potassium 3.5 D BUN 41 H D Creatinine 2.5 H D Random Glucose 113 H D Calcium 7.2 L Active Medications Generic Name Dose Route Start Last Admin Trade Name Freq PRN Reason Stop Dose Admin Meropenem 500 mg in 10 mls @ 120 mls/hr 05/21/17 10:00 05/24/17 11:37 Merrem (Restricted To Id) - IVPUSH 120 mls/hr BID [facility] Administration Ipratropium [place] 1 amp 05/21/17 00:00 05/24/17 12:05 Atrovent 0.02% Nebulizer - NEB Not Given QIDR [facility] Methylprednisolone Sodium Succinate 20 mg 05/24/17 22:00 Solu-Medrol - IVPUSH BID [facility] Metoprolol Tartrate 5 mg 05/22/17 14:26 Lopressor Injection - IVPUSH Q1H PRN TACHYCARDIA Pantoprazole Sodium 40 mg 05/21/17 10:00 05/24/17 10:02 Protonix - PO Not Given DAILY [facility] ASSESSMENT/PLAN: #severe neutropenic fever possibly 2/2 chemo, or MM #sepsis 2/2 PNA -afebrile today -may need permacath for shelter -Meropenem 500 mg BID- Today is Day 6 -Will continue abx for 7 day course (to finish tomorrow, 05/25) Thank you Camila Singh MD PGY-1 ID Team Visit type - Emergency Visit Emergency Visit: No - New Patient This patient is new to me today: No - Critical Care Critical Care patient: No
--- NOTE | 2017-05-24 17:40 | PN ---
Teaching Attending Note Name of Resident: Camila Singh ATTENDING PHYSICIAN STATEMENT I saw and evaluated the patient. I reviewed the resident's note and discussed the case with the resident. I agree with the resident's findings and plan as documented. SUBJECTIVE: much more alert eating today no respiratory distress OBJECTIVE: Vital Signs Period Temp Pulse Resp BP Sys/Saucedo Pulse Ox Last 24 Hr 97.3 F-98.3 F 93-107 18-20 111-145/74-92 96-99 cor-rrr lungs decreased bs at bases CBC, BMP 05/24/17 06:00 05/24/17 06:00 ASSESSMENT AND PLAN: neutropenia resolved day#6 of 7 meropenem myeloma on HD- per renal
[2017-05-25] MEDS: IPRATROPIUM BR 0.02% 0.5 MG/2.5 ML VIAL.NEB. NEB SCH ×5 (00:05→23:11)
[2017-05-25 08:22] LABS: BASO % 0.2 % (0-2.0); EOS % 0.6 % (0-4.5); HEMOGLOBIN 8.5 GM/dL (10.7-15.3); LYMPH % 13.9 % (8-40); MCH 28.6 pg (25.7-33.7); MCHC 32.6 g/dl (32.0-36.0); MEAN CELL VOLUME 87.6 fl (80-96); MEAN PLT VOLUME 7.7 fl (7.5-11.1); MONO % 0.4 % (3.8-10.2); NEUT % 84.9 % (42.8-82.8); PLATELET COUNT 72 K/MM3 (134-434); RBC 2.96 M/mm3 (3.60-5.2); RDW 18.7 % (11.6-15.6)
[2017-05-25 08:33] LABS: WHITE BLOOD COUNT 1.9 K/mm3 (4.0-10.0)
[2017-05-25 08:35] LABS: CHLORIDE 99 mmol/L (98-107); POTASSIUM 3.7 mmol/L (3.5-5.1); SODIUM 136 mmol/L (136-145)
[2017-05-25 08:51] LABS: ANION GAP 11 (8-16); BLOOD UREA NITROGEN 53 mg/dL (7-18); CO2 26 mmol/L (21-32); GLUCOSE,RANDOM 109 mg/dL (74-106); MAGNESIUM 1.9 mg/dL (1.8-2.4); PHOSPHOROUS 6.2 mg/dL (2.5-4.9)
[2017-05-25] MEDS ORDERED: PT OWN MED DRAWER 7, Y5N ONE ×2 (09:21→22:10)
[2017-05-25] MEDS: PANTOPRAZOLE 40 MG TABLET (FP) PO SCH (09:28)
[2017-05-25] MEDS: MEROPENEM 500 MG PUSH 500 MG/10 ML DISP.SYRIN IVPUSH SCH ×2 (09:29→22:38)
[2017-05-25] MEDS: methylPREDNISolone NA SUCC 40 MG/1 ML VIAL IVPUSH SCH ×2 (09:29→22:38)
[2017-05-25 10:15] LABS: CALCIUM 6.6 mg/dL (8.5-10.1)
--- NOTE | 2017-05-25 10:49 | PN ---
Progress Note, Physician Chief Complaint: Patient awake today and says she does not know how she feels. She denies cp, sob , n/v. - Current Medication List Current Medications: Active Medications Meropenem (Merrem (Restricted To Id) -) 500 mg in 10 mls @ 120 mls/hr IVPUSH BID [facility] Last Admin: 05/25/17 09:29 Dose: 120 mls/hr Ipratropium [place] (Atrovent 0.02% Nebulizer -) 1 amp NEB QIDR [facility] Last Admin: 05/25/17 07:05 Dose: 1 amp Methylprednisolone Sodium Succinate (Solu-Medrol -) 20 mg IVPUSH BID [facility] Last Admin: 05/25/17 09:29 Dose: 20 mg Metoprolol Tartrate (Lopressor Injection -) 5 mg IVPUSH Q1H PRN PRN Reason: TACHYCARDIA Pantoprazole Sodium (Protonix -) 40 mg PO DAILY [facility] Last Admin: 05/25/17 09:28 Dose: 40 mg - Objective Vital Signs: Vital Signs Temperature 36.3 C L 05/25/17 06:00 Pulse Rate 73 05/25/17 06:00 Respiratory Rate 20 05/25/17 06:00 Blood Pressure 124/77 05/25/17 06:00 O2 Sat by Pulse Oximetry (%) 98 05/24/17 21:00 Constitutional: Yes: No Distress, Anxious, Obese Cardiovascular: Yes: Regular Rate and Rhythm. No: Gallop, Murmur, Rub Respiratory: Yes: Regular, CTA Bilaterally. No: Rales, Rhonchi, Wheezes Gastrointestinal: Yes: Normal Bowel Sounds, Soft. No: Distention, Tenderness Extremities: Yes: WNL Edema: Yes Edema: LLE: 1+, RLE: 1+ Labs: CBC, BMP 05/25/17 07:00 05/25/17 07:00 INR, PTT INR 1.09 (0.82-1.09) 05/18/17 01:17 Problem List - Problems (1) Septic shock Code(s): A41.9 - SEPSIS, UNSPECIFIED ORGANISM; R65.21 - SEVERE SEPSIS WITH SEPTIC SHOCK (2) Fever and neutropenia Code(s): D70.9 - NEUTROPENIA, UNSPECIFIED; R50.81 - FEVER PRESENTING WITH CONDITIONS CLASSIFIED ELSEWHERE (3) Atrial fibrillation with RVR Code(s): I48.91 - UNSPECIFIED ATRIAL FIBRILLATION (4) Acute renal failure Code(s): N17.9 - ACUTE KIDNEY FAILURE, UNSPECIFIED (5) Metabolic encephalopathy Code(s): G93.41 - METABOLIC ENCEPHALOPATHY (6) Hyponatremia Code(s): E87.1 - HYPO-OSMOLALITY AND HYPONATREMIA (7) Hypocalcemia Code(s): E83.51 - HYPOCALCEMIA (8) Multiple myeloma Code(s): C90.00 - MULTIPLE MYELOMA NOT HAVING ACHIEVED REMISSION Assessment/Plan (1) Septic shock Assessment/Plan -resolved -cultures are negative -ID following, continuing merrem day 7 -continue to monitor on telemetry Code(s): A41.9 - SEPSIS, UNSPECIFIED ORGANISM; R65.21 - SEVERE SEPSIS WITH SEPTIC SHOCK (2) Fever and neutropenia Assessment/Plan: -resolved -continue merrem as above -WBC lower today but ANC still normal Code(s): D70.9 - NEUTROPENIA, UNSPECIFIED; R50.81 - FEVER PRESENTING WITH CONDITIONS CLASSIFIED ELSEWHERE (3) Atrial fibrillation with RVR Assessment/Plan: -now in sinus rhythm -not requiring therapy Code(s): I48.91 - UNSPECIFIED ATRIAL FIBRILLATION (4) Acute renal failure Assessment/Plan: -case d/w Dr Soto -family wants permacath placed -case d/w Dr Soto and Dr Poe -planning for permacath placement and outpatient HD is patient survives Code(s): N17.9 - ACUTE KIDNEY FAILURE, UNSPECIFIED (5) Metabolic encephalopathy Assessment/Plan: -improved today -secondary to HD Code(s): G93.41 - METABOLIC ENCEPHALOPATHY (6) Hyponatremia Assessment/Plan: -resolved Code(s): E87.1 - HYPO-OSMOLALITY AND HYPONATREMIA (7) Hypocalcemia Assessment/Plan: -monitor, may need replacement Code(s): E83.51 - HYPOCALCEMIA (8) Multiple myeloma Assessment/Plan: -oncology following -patient now endstage -family desires full treatment Code(s): C90.00 - MULTIPLE MYELOMA NOT HAVING ACHIEVED REMISSION (9) Anemia -s/p 1 unit
--- NOTE | 2017-05-25 11:35 | PN ---
Progress Note (short form) - Note Progress Note: s: awake, confused, appears comfortable, no overnight events Current Medications Generic Name Dose Route Start Last Admin Trade Name Freq PRN Reason Stop Dose Admin Meropenem 500 mg in 10 mls @ 120 mls/hr 05/21/17 10:00 05/25/17 09:29 Merrem (Restricted To Id) - IVPUSH 120 mls/hr BID [facility] Administration Ipratropium [place] 1 amp 05/21/17 00:00 05/25/17 07:05 Atrovent 0.02% Nebulizer - NEB 1 amp QIDR [facility] Administration Methylprednisolone Sodium Succinate 20 mg 05/24/17 22:00 05/25/17 09:29 Solu-Medrol - IVPUSH 20 mg BID [facility] Administration Metoprolol Tartrate 5 mg 05/22/17 14:26 Lopressor Injection - IVPUSH Q1H PRN TACHYCARDIA Pantoprazole Sodium 40 mg 05/21/17 10:00 05/25/17 09:28 Protonix - PO 40 mg DAILY [facility] Administration o: Vital Signs Period Temp Pulse Resp BP Sys/Saucedo Pulse Ox Last 24 Hr 97.4 F-98.4 F 73-101 18-20 124-145/70-81 98 nad no jvd rrr s1s2 no mrg cta bl no jaundice diaphoresis pos dp pt no carotid bruits no le e/c/c abd nt nd pos bs Laboratory Last Values WBC 1.9 K/mm3 (4.0-10.0) L* 05/25/17 07:00 RBC 2.96 M/mm3 (3.60-5.2) L 05/25/17 07:00 Hgb 8.5 GM/dL (10.7-15.3) L 05/25/17 07:00 Hct 26.0 % (32.4-45.2) L 05/25/17 07:00 MCV 87.6 fl (80-96) 05/25/17 07:00 MCH 28.6 pg (25.7-33.7) 05/25/17 07:00 MCHC 32.6 g/dl (32.0-36.0) 05/25/17 07:00 RDW 18.7 % (11.6-15.6) H 05/25/17 07:00 Plt Count 72 K/MM3 (134-434) L 05/25/17 07:00 MPV 7.7 fl (7.5-11.1) 05/25/17 07:00 Absolute Neuts (auto) 0.0 # (42.8-82.8) L 05/19/17 08:20 Absolute Lymphs (auto) 0.9 (8-40) L 05/19/17 08:20 Absolute Monos (auto) 1.7 # (3.8-10.2) L 05/19/17 08:20 Absolute Eos (auto) 0.0 # (0-4.5) 05/19/17 08:20 Absolute Basos (auto) 0.0 # (0.1-1) L 05/19/17 08:20 Total Counted 100 05/24/17 06:00 Neutrophils % 84.9 % (42.8-82.8) H D 05/25/17 07:00 Neutrophils % (Manual) 83.3 % (42.8-82.8) H 05/24/17 06:00 Band Neutrophils % 0.0 % 05/24/17 06:00 Lymphocytes % 13.9 % (8-40) D 05/25/17 07:00 Lymphocytes % (Manual) 10.4 % (8-40) D 05/24/17 06:00 Monocytes % 0.4 % (3.8-10.2) L D 05/25/17 07:00 Monocytes % (Manual) 6 % (3.8-10.2) 05/24/17 06:00 Eosinophils % 0.6 % (0-4.5) D 05/25/17 07:00 Eosinophils % (Manual) 0.0 % (0-4.5) 05/24/17 06:00 Basophils % 0.2 % (0-2.0) 05/25/17 07:00 Basophils % (Manual) 0.0 % (0-2.0) 05/24/17 06:00 Myelocytes % (Man) 0 % (0-2) 05/24/17 06:00 Metamyelocytes 0 % (0-2) 05/24/17 06:00 Hypochromia 0 05/24/17 06:00 Platelet Estimate Decreased 05/24/17 06:00 Polychromasia 0 05/24/17 06:00 Poikilocytosis 0 05/24/17 06:00 Anisocytosis 3+ 05/24/17 06:00 Microcytosis 3+ 05/24/17 06:00 Macrocytosis 0 05/24/17 06:00 Target Cells 1+ 05/24/17 06:00 PT with INR 12.30 SEC (9.98-11.88) H 05/18/17 01: INR 1.09 (0.82-1.09) 05/18/17: PTT (Actin FS) 25.9 SECONDS (26.9-34.4) L 05/25/17 07:00 Anticoagulation Therapy Y 05/18/17 06:00 Puncture Site Left radial 05/18/17 06:00 ABG pH 7.38 (7.35-7.45) 05/18/17 06:00 ABG pCO2 at Pt Temp 25.4 mmHg (35-45) L 05/18/17 06:00 ABG pO2 at Pt Temp 88.3 mmHg (68-100) 05/18/17 06:00 ABG HCO3 14.7 meq/L (22-26) L* 05/18/17 06:00 ABG O2 Sat (Measured) 96.0 % (90-98.9) 05/18/17 06:00 ABG O2 Content 9.1 % vol (15-22) L* 05/18/17 06:00 ABG Base Excess -9.1 meq/l (-2-2) L 05/18/17 06:00 Neil Test Positive 05/18/17 06:00 VBG pH 7.40 (7.32-7.42) 05/18/17: POC VBG pCO2 29.9 mmHg (38-52) L D 05/18/17: POC VBG pO2 39.2 mmHg (28-48) D 05/18/17 01:17 Mixed VBG HCO3 18.2 meq/L (19-25) L 05/18/17: O2 Delivery Device Y 05/18/17 06:00 Oxygen Flow Rate 3l 05/18/17 06:00 Vent Mode Y 05/18/17 06:00 Vent Rate Y 05/18/17 06:00 Mechanical Rate Y 05/18/17 06:00 Pressure Support Vent Y 05/18/17 06:00 Sodium 136 mmol/L (136-145) 05/25/17 07:00 Potassium 3.7 mmol/L (3.5-5.1) 05/25/17 07:00 Chloride 99 mmol/L (98-107) 05/25/17 07:00 Carbon Dioxide 26 mmol/L (21-32) 05/25/17 07:00 Anion Gap 11 (8-16) 05/25/17 07:00 BUN 53 mg/dL (7-18) H D 05/25/17 07:00 Creatinine 3.0 mg/dL (0.55-1.02) H 05/25/17 07:00 Creat Clearance w eGFR 18.44 (>60) 05/24/17 06:00 Random Glucose 109 mg/dL (74-106) H 05/25/17 07:00 Serum Osmolality 294 mosm/kg (278-305) 05/18/17 05:12 Lactic Acid 1.7 mmol/L (0.4-2.0) 05/18/17 18:52 Calcium 6.6 mg/dL (8.5-10.1) L* 05/25/17 07:00 Phosphorus 6.2 mg/dL (2.5-4.9) H D 05/25/17 07:00 Magnesium 1.9 mg/dL (1.8-2.4) 05/25/17 07:00 Total Bilirubin 0.8 mg/dL (0.2-1.0) D 05/24/17 06:00 AST 41 U/L (15-37) H D 05/24/17 06:00 ALT 15 U/L (12-78) 05/24/17 06:00 Alkaline Phosphatase 53 U/L (45-117) 05/24/17 06:00 LD Total 391 U/L (84-246) H D 05/19/17 08:20 Creatine Kinase 37 IU/L (26-192) 05/18/17 01:17 Troponin I < 0.02 ng/ml (0.00-0.05) 05/18/17 01:17 Total Protein 5.5 g/dl (6.4-8.2) L 05/24/17 06:00 Albumin 2.2 g/dl (3.4-5.0) L 05/24/17 06:00 TSH 1.30 uIU/ml (0.358-3.74) D 05/19/17 08:20 Free T4 0.99 ng/dl (0.76-1.46) 05/19/17 08:20 Cortisol AM Sample 16.9 ug/dL (.) 05/18/17 13:33 Urine Color Ltyellow 05/19/17 15:30 Urine Appearance Slcloudy 05/19/17 15:30 Urine pH 6.0 (5.0-8.0) 05/19/17 15:30 Ur Specific [place] 1.006 (1.001-1.035) 05/19/17 15:30 Urine Protein 1+ (NEGATIVE) H 05/19/17 15:30 Urine Glucose (UA) Negative (NEGATIVE) 05/19/17 15:30 Urine Ketones Negative (NEGATIVE) 05/19/17 15:30 Urine Blood 3+ (NEGATIVE) H 05/19/17 15:30 Urine Nitrite Negative (NEGATIVE) 05/19/17 15:30 Urine Bilirubin Negative (NEGATIVE) 05/19/17 15:30 Urine Urobilinogen Negative mg/dL (0.2-1.0) 05/19/17 15:30 Ur Leukocyte Esterase Trace (NEGATIVE) H 05/19/17 15:30 Urine WBC (Auto) 2 /hpf (3-5) 05/19/17 15:30 Urine RBC (Auto) 1 /hpf (0-3) 05/19/17 15:30 Ur Epithelial Cells Rare /HPF (FEW) 05/19/17 15:30 Urine Bacteria Rare /hpf (NONE SEEN) 05/19/17 15:30 Urine Mucus Rare 05/18/17 01:57 Urine Osmolality 196 mosm/kg (300-900) L 05/18/17 11:30 Ur Random Sodium 54 MMOL/L 05/19/17 15:30 Ur Random Potassium 9.3 MMOL/L 05/19/17 15:30 Ur Random Chloride 48 MMOL/L 05/19/17 15:30 Urine Creatinine < 13.0 mg/dL (20-320) L 05/19/17 15:30 Stool Occult Blood Negative (NEGATIVE) 05/21/17 15:30 Stool O & P Wet [place] Cancelled 05/19/17 22:15 Digoxin 2.3427 ng/ml (0.8-2.0) H 05/20/17 09:50 Hep A IgM Ab Confirm Negative (Negative) 05/21/17 21:40 Hepatitis A Ab Total Positive (Negative) H 05/21/17 21:40 Hep Bs Antigen Negative (Negative) 05/21/17 21:40 Hep Bs Antibody Non reactive (.) 05/21/17 21:40 Hep B Core Total Ab Negative (Negative) 05/21/17 21:40 Hepatitis C Antibody <0.1 s/co ratio (0.0-0.9) 05/21/17 21:40 O & P Permanent Slide Cancelled 05/19/17 22:15 Beta-(1,3)-D-Glucan 66 pg/mL (<80) 05/19/17 08:20 Blood Type O POSITIVE 05/23/17 11:50 Antibody Screen Negative 05/23/17 11:50 Crossmatch See Detail 05/23/17 11:50 tele: sr, pacs echo 02/2017: nl lv/rv, mild mr/tr, nl rvsp echo 04/2017: nl lv/rv, mild mr echo 04/2017 repeat: nl lv/rv, mild-mod mr ct chest: b/l effs, ILD a/p: 81 f hx MM, hld, here with sepsis and new onset afib. 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 source (PNA?)--ID notes appreciated -cont abx per ID -chemo per onc -bp borderline, mostly 90s-100s, off pressors--dropped to 80s 05/21 during HD. Recently bp's improved 110's-120's. -pancytopenic--per onc. new onset afib, brief PSVT runs: -occurred here in setting of sepsis. chadsvasc is 3, --> pt with chronic anemia , d/w heme and cleared for AC -05/21 during HD had episodes of AFL with 2:1 > variable conduction, rapid HRs, with low BPs in 80s. -if continues to occur during HD, it will make successful dialysis very difficult. -has remained in sinus since. d/w'd dtr's option of adding amio for SVT/AFL suppression, but they prefer holding off unless recurrent episodes, since they are in general concerned regarding medication toxicity potential. -05/22: family declining heparin b/c of bleeding thru skin on hands and concerns of risks of medication. Dr. Gibson explained to them that there is an uncertain degree of risk of embolism/CVA with brief PAFL, though it is felt to be statistically very low with brief duration as with her. they verbalize understanding and preference to take that risk in order to avoid risk of bleeding. heparin stopped. - 05/23: still with intermittent runs of svt. -: no sig svt overnight acute hypoxic resp failure, acute diast chf: -05/20: pt with signif tachypnea, using resp muscles, + audible wheezing. cxr with incr effusions and chf pattern. s/p lasix 40 ivp x1 -05/21: renal fxn worsening significantly (bun/creat 101/5.7), K 6.6. CXR much improved. plan per dr bateman d/w family is to begin HD today (shiley catheter access placed this am). defer lasix - 05/23: sob continues to improve. s/p HD today. volume status per renal. -: hd per renal aj: -? sepsis ATN -required initiation of HD here
[2017-05-25] MEDS ORDERED: LIDOCAINE HCL 1%, 10 MG/ML (20ML VIAL) ONE (12:15)
[2017-05-25] MEDS ORDERED: PROPOFOL 20 ML ONE (12:59)
[2017-05-25] MEDS ORDERED: LIDOCAINE HCL 1%, 10 MG/ML (20ML VIAL) INF ONE (13:16)
--- NOTE | 2017-05-25 13:45 | OP ---
Operative Note - Note: Operative Date: 05/25/17 Pre-Operative Diagnosis: ARF Operation: Insertion of permacath Post-Operative Diagnosis: Same as Pre-op Surgeon: Jayson Poe Anesthesia: Fractional Estimated Blood Loss (mls): 30 Operative Report Dictated: Yes
[2017-05-25] MEDS ORDERED: ONDANSETRON 4 MG/2 ML VIAL IVPUSH PRN (13:48)
[2017-05-25] MEDS ORDERED: SODIUM CHLORIDE 1,000 ML IV SCH (14:00)
[2017-05-25] MEDS ORDERED: METOPROLOL TARTRATE 5 MG/5 ML VIAL IVPUSH PRN (14:02)
[2017-05-25] MEDS ORDERED: dilTIAZem HCL 50 MG/10 ML - 10 ML VIAL IVPUSH ONE (14:02)
--- NOTE | 2017-05-25 14:56 | OP ---
DATE OF OPERATION: 05/25/2017 PREOPERATIVE DIAGNOSIS: Acute on chronic renal failure. POSTOPERATIVE DIAGNOSIS: Acute on chronic renal failure. PROCEDURE PERFORMED: Insertion of PermCath. SURGEON: Jayson Zhang MD ANESTHESIA: Fractional. ESTIMATED BLOOD LOSS: 30 mL. INDICATIONS: The patient is a 77-year-old female that came in with a history of bad myeloma and now has acute renal failure. The patient had a Shiley in the left groin for a couple of days and now needs more chronic dialysis and thus it was decided that the patient needed a PermCath. The patient's family was consented for the procedure understanding all risks, benefits and alteratives. PROCEDURE IN DETAIL: She was taken to the operating room. The patient was laid down on the operating table in a supine manner. The area of the right neck and chest were prepped and draped in a sterile surgical manner. Under ultrasound guidance we were able to visualize the right internal jugular vein and 10 mL of lidocaine was injected over the vein. We then took our micropuncture needling and punctured the right internal jugular vein. Under ultrasound guidance micropuncture was inserted. Under fluoroscopy, the micropuncture sheath was inserted and a 0.035 guidewire was inserted under fluoroscopy. We then injected 10 mL of lidocaine 1% above and below the clavicle. We then took an 11 blade and made a 1-cm incision at the puncture site. We took a 15 blade and made a 1-cm incision below the clavicle. We then tunneled the PermCath up to the puncture site. We then went ahead and placed a breakaway sheath over the guidewire into the vein under fluoroscopy and the cannula and guidewire were removed. Catheter was placed inside the sheath. Sheath was broken away as the catheter was placed inside the vein. Neck of the catheter was nice and smooth. Tip of the catheter was located outside the right atrium. We then lillian back on each port of the catheter and there was good flow. Heparinized saline was injected, 2000 units of IV heparin was injected into each port. We then took 4-0 Biosyn and 3 simple stitches were placed at the puncture site. Nylon 3-0 was used to attach the catheter to the skin. Biopatch, Steri-Strips, 4 x 4, Tegaderm was placed. The patient tolerated the procedure with no complications. The patient was transferred to the PACU in stable condition. JAYSON ZHANG DO REGULATORY AFFAIRS CONSULTANT/[id number]
--- NOTE | 2017-05-25 15:17 | PN ---
Progress Note, Physician Chief Complaint: Pt seen and examined at bedside. She had the permacath placed today. - Current Medication List Current Medications: Active Medications Fentanyl (Sublimaze Injection -) 25 mcg IVPUSH [id number] PRN PRN Reason: PAIN Meropenem (Merrem (Restricted To Id) -) 500 mg in 10 mls @ 120 mls/hr IVPUSH BID [facility] Ipratropium [place] (Atrovent 0.02% Nebulizer -) 1 amp NEB QIDR [facility] Methylprednisolone Sodium Succinate (Solu-Medrol -) 20 mg IVPUSH BID [facility] Metoprolol Tartrate (Lopressor Injection -) 5 mg IVPUSH Q1H PRN PRN Reason: TACHYCARDIA Ondansetron HCl (Zofran Injection) 4 mg IVPUSH Q6H PRN PRN Reason: NAUSEA AND/OR VOMITING Pantoprazole Sodium (Protonix -) 40 mg PO DAILY [facility] - Objective Vital Signs: Vital Signs Temperature 97.5 F L 05/25/17 15:04 Pulse Rate 73 05/25/17 15:04 Respiratory Rate 18 05/25/17 15:04 Blood Pressure 134/85 05/25/17 15:04 O2 Sat by Pulse Oximetry (%) 97 05/25/17 14:40 Constitutional: Yes: Anxious Eyes: Yes: Conjunctiva Clear HENT: Yes: Atraumatic Neck: Yes: Supple Cardiovascular: Yes: S1, S2 Respiratory: Yes: On Nasal O2 Gastrointestinal: Yes: Soft Genitourinary: Yes: Incontinence Musculoskeletal: Yes: Muscle Weakness Edema: Yes Edema: LLE: Trace, RLE: Trace Neurological: Yes: Confusion Labs: CBC, BMP 05/25/17 07:00 05/25/17 07:00 INR, PTT INR 1.09 (0.82-1.09) 05/18/17 01:17 - ....Imaging Chest X-ray: Report Reviewed Problem List - Problems (1) Atrial fibrillation with RVR Code(s): I48.91 - UNSPECIFIED ATRIAL FIBRILLATION (2) Fever and neutropenia Code(s): D70.9 - NEUTROPENIA, UNSPECIFIED; R50.81 - FEVER PRESENTING WITH CONDITIONS CLASSIFIED ELSEWHERE (3) Hyperkalemia, diminished renal excretion Code(s): E87.5 - HYPERKALEMIA (4) Hyponatremia Code(s): E87.1 - HYPO-OSMOLALITY AND HYPONATREMIA (5) Multiple myeloma Code(s): C90.00 - MULTIPLE MYELOMA NOT HAVING ACHIEVED REMISSION (6) Sepsis Code(s): A41.9 - SEPSIS, UNSPECIFIED ORGANISM (7) Multiple myeloma Code(s): C90.00 - MULTIPLE MYELOMA NOT HAVING ACHIEVED REMISSION Qualifiers: Assessment/Plan Current Medications Generic Name Dose Route Start Last Admin Trade Name Freq PRN Reason Stop Dose Admin Fentanyl 25 mcg 05/25/17 13:48 Sublimaze Injection - IVPUSH [id number] PRN PAIN Meropenem 500 mg in 10 mls @ 120 mls/hr 05/25/17 22:00 Merrem (Restricted To Id) - IVPUSH BID [facility] Ipratropium [place] 1 amp 05/25/17 18:00 Atrovent 0.02% Nebulizer - NEB QIDR [facility] Methylprednisolone Sodium Succinate 20 mg 05/25/17 22:00 Solu-Medrol - IVPUSH BID [facility] Metoprolol Tartrate 5 mg 05/25/17 14:02 Lopressor Injection - IVPUSH Q1H PRN TACHYCARDIA Ondansetron HCl 4 mg 05/25/17 13:48 Zofran Injection IVPUSH Q6H PRN NAUSEA AND/OR VOMITING Pantoprazole Sodium 40 mg 05/26/17 10:00 Protonix - PO DAILY [facility] Impression 1. SHANIA 2. sepsis 3. anemia 4. CKD/ESRD 5. multiple myeloma 6. malnutrition 7. proteinuria 8. possible hepatocellular disease seen on ultrasound 9. interstitial lung disease 10. hyponatremia 11. hyperkalemia Plan - pt had permacath placed today - will arrange for HD - congestion on CXR - discussed with heme onc. Pt may have had a "natural remedy" injected into her before hospital admission. Reports are not consistent between family members. - epogen for anemia - abx per ID - will follow Dr Soto
--- NOTE | 2017-05-25 15:23 | PN ---
Progress Note (short form) - Note Progress Note: vascular Surgery Cxy reviewed. Ok to use PC for HD. Jayson Poe DO
--- NOTE | 2017-05-25 16:26 | PN ---
Progress Note (short form) - Note Progress Note: Chart reviewed in detail. for permacath today. One of the daughter reported that they had a "consultation" with a natural doctor post discharge, inconsistent with other family members. O/E: General: awake,alert. smiling today! HEENT: NCAT Cardiac: rrr Lungs: decreased breath sounds Abdomen: ND NT LE: +1 edema b/l LE. Last Vital Signs Temp Pulse Resp BP Pulse Ox 97.5 F L 73 18 134/85 97 05/25/17 15:04 05/25/17 15:04 05/25/17 15:04 05/25/17 15:04 05/25/17 14:40 CBC, BMP 05/25/17 07:00 05/25/17 07:00 Current Medications Generic Name Dose Route Start Last Admin Trade Name Freq PRN Reason Stop Dose Admin Epoetin [place] 6,000 units 05/25/17 15:17 Epogen - IVPUSH 05/25/17 15:18 ONCE ONE Fentanyl 25 mcg 05/25/17 13:48 Sublimaze Injection - IVPUSH [id number] PRN PAIN Meropenem 500 mg in 10 mls @ 120 mls/hr 05/25/17 22:00 Merrem (Restricted To Id) - IVPUSH BID [facility] Ipratropium [place] 1 amp 05/25/17 18:00 Atrovent 0.02% Nebulizer - NEB QIDR [facility] Methylprednisolone Sodium Succinate 20 mg 05/25/17 22:00 Solu-Medrol - IVPUSH BID [facility] Metoprolol Tartrate 5 mg 05/25/17 14:02 Lopressor Injection - IVPUSH Q1H PRN TACHYCARDIA Ondansetron HCl 4 mg 05/25/17 13:48 Zofran Injection IVPUSH Q6H PRN NAUSEA AND/OR VOMITING Pantoprazole Sodium 40 mg 05/26/17 10:00 Protonix - PO DAILY [facility] Patient with Multiple Myeloma not in CR, last treatment was in 03/2017. The new cytopenias likely from Myeloma. course complicated by worsening CKD now to ESRD. Unclear precipitating factor. ANC today is 1615, will monitor her performance status ,frailty and co-morbids at present time would not allow chemotherapy to be administered to control Myeloma, updated daughter on 05/24 Supportive transfusions as needed. continues to be in meropenam now has a permacath, is receiving HD pAfl, off AC as per daughters preferences. dispo? Problem List - Problems (1) Atrial fibrillation with RVR Code(s): I48.91 - UNSPECIFIED ATRIAL FIBRILLATION (2) Fever and neutropenia Code(s): D70.9 - NEUTROPENIA, UNSPECIFIED; R50.81 - FEVER PRESENTING WITH CONDITIONS CLASSIFIED ELSEWHERE (3) Acute renal failure Code(s): N17.9 - ACUTE KIDNEY FAILURE, UNSPECIFIED (4) Multiple myeloma Code(s): C90.00 - MULTIPLE MYELOMA NOT HAVING ACHIEVED REMISSION
[2017-05-25] MEDS ORDERED: EPOETIN ALFA 3,000 UNIT/1 ML ML IVPUSH ONE (16:45)
--- NOTE | 2017-05-25 17:24 | PN ---
Physical Exam: SUBJECTIVE: Patient seen and examined at bedside. Overnight, no acute events. Pt afebrile. This AM, pt still appears confused. As per sister, she is unable to articulate her thoughts, however this is unchanged since admission. C/o R sided hearing loss for past 2 days.Permacath placement this afternoon-to receive dialysis OBJECTIVE: Vital Signs Period Temp Pulse Resp BP Sys/Saucedo Pulse Ox Last 24 Hr 97.3 F-98.4 F 60-90 14-20 115-145/66-86 97-100 GENERAL: The patient is awake, AAOx1 (self), in no acute distress HEAD: Normal with no signs of trauma. EYES: PERRL, extraocular movements intact, sclera anicteric, conjunctiva clear. NECK: Trachea midline, full range of motion, supple. LUNGS: wheezing appreciated in RUL, RLL. Otherwise without crackles, or accessory muscle use. HEART: Regular rate and rhythm, S1, S2 without murmur, rub or gallop. ABDOMEN: Soft, obese, nontender, distended, normoactive bowel sounds EXTREMITIES: 2+ dorsalis pedis pulses, 2+ pitting edema b/l NEUROLOGICAL: Cranial nerves II through XII appear to be grossly intact. PSYCH: anxious, unable to articulate thoughts Laboratory Results 05/19/17 05/25/17 05/25/17 08:20 07:00 07:00 WBC 1.9 L* RBC 2.96 L Hgb 8.5 L Hct 26.0 L MCV 87.6 MCH 28.6 MCHC 32.6 RDW 18.7 H Plt Count 72 L MPV 7.7 Neutrophils % 84.9 H D Lymphocytes % 13.9 D Monocytes % 0.4 L D Eosinophils % 0.6 D Basophils % 0.2 PTT (Actin FS) 25.9 L Beta-(1,3)-D-Glucan 66 05/25/17 07:00 PTT (Actin FS) Sodium 136 Potassium 3.7 Chloride 99 Carbon Dioxide 26 Anion Gap 11 BUN 53 H D Creatinine 3.0 H Random Glucose 109 H Calcium 6.6 L* Phosphorus 6.2 H D Magnesium 1.9 Active Medications Generic Name Dose Route Start Last Admin Trade Name Freq PRN Reason Stop Dose Admin Fentanyl 25 mcg 05/25/17 13:48 Sublimaze Injection - IVPUSH [id number] PRN PAIN Meropenem 500 mg in 10 mls @ 120 mls/hr 05/25/17 22:00 Merrem (Restricted To Id) - IVPUSH BID [facility] Ipratropium Protivin 1 amp 05/25/17 18:00 Atrovent 0.02% Nebulizer - NEB QIDR [facility] Methylprednisolone Sodium Succinate 20 mg 05/25/17 22:00 Solu-Medrol - IVPUSH BID [facility] Metoprolol Tartrate 5 mg 05/25/17 14:02 Lopressor Injection - IVPUSH Q1H PRN TACHYCARDIA Ondansetron HCl 4 mg 05/25/17 13:48 Zofran Injection IVPUSH Q6H PRN NAUSEA AND/OR VOMITING Pantoprazole Sodium 40 mg 05/26/17 10:00 Protonix - PO DAILY [facility] Microbiology 05/19/17 22:15 Stool Clostridium difficile Antigen (ROSALINDA) - Final 05/19/17 22:15 Stool Clostridium difficile Toxin Assay - Final 05/18/17 05:30 Nasopharyngeal Swab Influenza Types A,B Antigen (ROSALINDA) - Final 05/18/17 05:30 Nasopharyngeal Swab - Final 05/18/17 01:17 Blood - Peripheral Venous Blood Culture - Final NO GROWTH AFTER 5 DAYS INCUBATION 05/18/17 01:17 Blood - Peripheral Venous Blood Culture - Final NO GROWTH AFTER 5 DAYS INCUBATION 05/18/17 00:15 Urine - Urine Farrar Urine Culture - Final NO GROWTH OBTAINED ASSESSMENT/PLAN: #severe neutropenic fever possibly 2/2 chemo, or MM #sepsis 2/2 PNA -afebrile today -ANC ~1600, without neutropenia -permacath has been placed, receiving HD -Meropenem 500 mg BID- Today is Day 77. Will d/c abx tomorrow Thank you Camila Singh MD PGY-1 ID Team Visit type - Emergency Visit Emergency Visit: No - New Patient This patient is new to me today: No - Critical Care Critical Care patient: No
--- NOTE | 2017-05-25 18:08 | PN ---
Teaching Attending Note Name of Resident: Camila Singh ATTENDING PHYSICIAN STATEMENT I saw and evaluated the patient. I reviewed the resident's note and discussed the case with the resident. I agree with the resident's findings and plan as documented. SUBJECTIVE: Awake but confused No complaints offered Afebrile Remains pancytopenic Neutropenia improved OBJECTIVE: Cor S1S2 + scatterred rhonchi, wheeze ASSESSMENT AND PLAN: Pancytopenia Neutropenia- improved ESRD Continue meropenem
[2017-05-26] MEDS: IPRATROPIUM BR 0.02% 0.5 MG/2.5 ML VIAL.NEB. NEB SCH ×4 (06:40→23:46)
[2017-05-26 07:26] LABS: HEMOGLOBIN 9.1 GM/dL (10.7-15.3); MCH 28.6 pg (25.7-33.7); MCHC 32.6 g/dl (32.0-36.0); MEAN CELL VOLUME 87.8 fl (80-96); MEAN PLT VOLUME 7.6 fl (7.5-11.1); PLATELET COUNT 70 K/MM3 (134-434); RBC 3.18 M/mm3 (3.60-5.2); RDW 18.3 % (11.6-15.6); WHITE BLOOD COUNT 2.1 K/mm3 (4.0-10.0)
[2017-05-26 08:33] LABS: ANISOCYTOSIS 1+; PLATELET ESTIMATE DECREASED; TARGET CELLS 1+
[2017-05-26 08:44] LABS: ANION GAP 10 (8-16); BLOOD UREA NITROGEN 35 mg/dL (7-18); CHLORIDE 102 mmol/L (98-107); CO2 30 mmol/L (21-32); GLUCOSE,RANDOM 100 mg/dL (74-106); MAGNESIUM 1.8 mg/dL (1.8-2.4); POTASSIUM 3.6 mmol/L (3.5-5.1); SODIUM 142 mmol/L (136-145)
[2017-05-26 08:49] LABS: CALCIUM 7.1 mg/dL (8.5-10.1); CREATININE 2.2 mg/dL (0.55-1.02); PHOSPHOROUS 4.4 mg/dL (2.5-4.9)
[2017-05-26] MEDS: methylPREDNISolone NA SUCC 40 MG/1 ML VIAL IVPUSH SCH ×2 (10:05→22:03)
[2017-05-26] MEDS: PANTOPRAZOLE 40 MG TABLET (FP) PO SCH (10:06)
[2017-05-26] MEDS: MEROPENEM 500 MG PUSH 500 MG/10 ML DISP.SYRIN IVPUSH SCH (10:06)
--- NOTE | 2017-05-26 11:42 | PN ---
Progress Note, Physician Chief Complaint: Patient awake, again says she does not know how she feels. Denies cp, sob, n/v. - Current Medication List Current Medications: Active Medications Fentanyl (Sublimaze Injection -) 25 mcg IVPUSH [id number] PRN PRN Reason: PAIN Meropenem (Merrem (Restricted To Id) -) 500 mg in 10 mls @ 120 mls/hr IVPUSH BID [facility] Last Admin: 05/26/17 10:06 Dose: 120 mls/hr Ipratropium [place] (Atrovent 0.02% Nebulizer -) 1 amp NEB QIDR [facility] Last Admin: 05/26/17 06:40 Dose: Not Given Methylprednisolone Sodium Succinate (Solu-Medrol -) 20 mg IVPUSH BID [facility] Last Admin: 05/26/17 10:05 Dose: 20 mg Metoprolol Tartrate (Lopressor Injection -) 5 mg IVPUSH Q1H PRN PRN Reason: TACHYCARDIA Ondansetron HCl (Zofran Injection) 4 mg IVPUSH Q6H PRN PRN Reason: NAUSEA AND/OR VOMITING Pantoprazole Sodium (Protonix -) 40 mg PO DAILY [facility] Last Admin: 05/26/17 10:06 Dose: 40 mg - Objective Vital Signs: Vital Signs Temperature 36.4 C 05/26/17 06:00 Pulse Rate 86 05/26/17 06:00 Respiratory Rate 18 05/26/17 06:00 Blood Pressure 129/77 05/26/17 06:00 O2 Sat by Pulse Oximetry (%) 95 05/25/17 21:00 Constitutional: Yes: No Distress, Calm, Obese Cardiovascular: Yes: Regular Rate and Rhythm. No: Gallop, Murmur, Rub Respiratory: Yes: Regular, CTA Bilaterally. No: Rales, Rhonchi, Wheezes Gastrointestinal: Yes: Normal Bowel Sounds, Soft. No: Distention, Tenderness Extremities: Yes: WNL Edema: No Labs: CBC, BMP 05/26/17 06:20 05/26/17 06:20 INR, PTT INR 1.09 (0.82-1.09) 05/18/17 01:17 Problem List - Problems (1) Septic shock Code(s): A41.9 - SEPSIS, UNSPECIFIED ORGANISM; R65.21 - SEVERE SEPSIS WITH SEPTIC SHOCK (2) Fever and neutropenia Code(s): D70.9 - NEUTROPENIA, UNSPECIFIED; R50.81 - FEVER PRESENTING WITH CONDITIONS CLASSIFIED ELSEWHERE (3) Atrial fibrillation with RVR Code(s): I48.91 - UNSPECIFIED ATRIAL FIBRILLATION (4) Metabolic encephalopathy Code(s): G93.41 - METABOLIC ENCEPHALOPATHY (5) Hyponatremia Code(s): E87.1 - HYPO-OSMOLALITY AND HYPONATREMIA (6) Hypocalcemia Code(s): E83.51 - HYPOCALCEMIA (7) Multiple myeloma Code(s): C90.00 - MULTIPLE MYELOMA NOT HAVING ACHIEVED REMISSION (8) ESRD (end stage renal disease) Code(s): N18.6 - END STAGE RENAL DISEASE Assessment/Plan (1) Septic shock Assessment/Plan -resolved -cultures are negative -ID following, discontinue merrem tomorrow after full course Code(s): A41.9 - SEPSIS, UNSPECIFIED ORGANISM; R65.21 - SEVERE SEPSIS WITH SEPTIC SHOCK (2) Fever and neutropenia Assessment/Plan: -resolved -continue merrem as above -normal ANC Code(s): D70.9 - NEUTROPENIA, UNSPECIFIED; R50.81 - FEVER PRESENTING WITH CONDITIONS CLASSIFIED ELSEWHERE (3) Atrial fibrillation with RVR Assessment/Plan: -now in sinus rhythm -not requiring therapy Code(s): I48.91 - UNSPECIFIED ATRIAL FIBRILLATION (4) ESRD Assessment/Plan: -permacath placed yesterday -continue HD -will most likely need rn long term care HD -Dr Soto managing Code(s): N17.9 - ACUTE KIDNEY FAILURE, UNSPECIFIED (5) Metabolic encephalopathy Assessment/Plan: -secondary to ESRD -patient appears at baseline Code(s): G93.41 - METABOLIC ENCEPHALOPATHY (6) Hyponatremia Assessment/Plan: -resolved Code(s): E87.1 - HYPO-OSMOLALITY AND HYPONATREMIA (7) Hypocalcemia Assessment/Plan: -monitor, may need replacement Code(s): E83.51 - HYPOCALCEMIA (8) Multiple myeloma Assessment/Plan: -oncology following -patient now endstage -cannot tolerate chemotherapy secondary to multiple comorbidities Code(s): C90.00 - MULTIPLE MYELOMA NOT HAVING ACHIEVED REMISSION (9) Anemia -s/p 1 unit Dispo -d/w daughter, doubt can manage at home -d/w SW, looking into SNF placement
--- NOTE | 2017-05-26 12:24 | PN ---
Progress Note (short form) - Note Progress Note: s: awake, confused, appears comfortable, no overnight events Current Medications Generic Name Dose Route Start Last Admin Trade Name Freq PRN Reason Stop Dose Admin Fentanyl 25 mcg 05/25/17 13:48 Sublimaze Injection - IVPUSH [id number] PRN PAIN Meropenem 500 mg in 10 mls @ 120 mls/hr 05/25/17 22:00 05/26/17 10:06 Merrem (Restricted To Id) - IVPUSH 120 mls/hr BID [facility]OM[facility] Administration Ipratropium [place] 1 amp 05/25/17 18:00 05/26/17 11:44 Atrovent 0.02% Nebulizer - NEB 1 amp QIDR [facility] Administration Methylprednisolone Sodium Succinate 20 mg 05/25/17 22:00 05/26/17 10:05 Solu-Medrol - IVPUSH 20 mg BID [facility] Administration Metoprolol Tartrate 5 mg 05/25/17 14:02 Lopressor Injection - IVPUSH Q1H PRN TACHYCARDIA Ondansetron HCl 4 mg 05/25/17 13:48 Zofran Injection IVPUSH Q6H PRN NAUSEA AND/OR VOMITING Pantoprazole Sodium 40 mg 05/26/17 10:00 05/26/17 10:06 Protonix - PO 40 mg DAILY [facility] Administration o: Vital Signs Period Temp Pulse Resp BP Sys/Saucedo Pulse Ox Last 24 Hr 97.4 F-97.9 F 60-103 14-18 115-138/66-86 95-100 nad no jvd rrr s1s2 no mrg cta bl no jaundice diaphoresis pos dp pt no carotid bruits no le e/c/c abd nt nd pos bs Laboratory Last Values WBC 2.1 K/mm3 (4.0-10.0) L 05/26/17 06:20 RBC 3.18 M/mm3 (3.60-5.2) L 05/26/17 06:20 Hgb 9.1 GM/dL (10.7-15.3) L 05/26/17 06:20 Hct 28.0 % (32.4-45.2) L 05/26/17 06:20 MCV 87.8 fl (80-96) 05/26/17 06:20 MCH 28.6 pg (25.7-33.7) 05/26/17 06:20 MCHC 32.6 g/dl (32.0-36.0) 05/26/17 06:20 RDW 18.3 % (11.6-15.6) H 05/26/17 06:20 Plt Count 70 K/MM3 (134-434) L 05/26/17 06:20 MPV 7.6 fl (7.5-11.1) 05/26/17 06:20 Absolute Neuts (auto) 0.0 # (42.8-82.8) L 05/19/17 08:20 Absolute Lymphs (auto) 0.9 (8-40) L 05/19/17 08:20 Absolute Monos (auto) 1.7 # (3.8-10.2) L 05/19/17 08:20 Absolute Eos (auto) 0.0 # (0-4.5) 05/19/17 08:20 Absolute Basos (auto) 0.0 # (0.1-1) L 05/19/17 08:20 Total Counted 100 05/26/17 06:20 Neutrophils % No Result Required. 05/26/17 06:20 Neutrophils % (Manual) 68.0 % (42.8-82.8) 05/26/17 06:20 Band Neutrophils % 2.0 % 05/26/17 06:20 Lymphocytes % No Result Required. 05/26/17 06:20 Lymphocytes % (Manual) 18.0 % (8-40) D 05/26/17 06:20 Monocytes % 0.4 % (3.8-10.2) L D 05/25/17 07:00 Monocytes % (Manual) 12 % (3.8-10.2) H D 05/26/17 06:20 Eosinophils % 0.6 % (0-4.5) D 05/25/17 07:00 Eosinophils % (Manual) 0.0 % (0-4.5) 05/24/17 06:00 Basophils % 0.2 % (0-2.0) 05/25/17 07:00 Basophils % (Manual) 0.0 % (0-2.0) 05/24/17 06:00 Myelocytes % (Man) 0 % (0-2) 05/24/17 06:00 Metamyelocytes 0 % (0-2) 05/24/17 06:00 Hypochromia 1+ 05/26/17 06:20 Platelet Estimate Decreased 05/26/17 06:20 Platelet Comment No clumping noted 05/26/17 06:20 Polychromasia 1+ 05/26/17 06:20 Poikilocytosis 0 05/24/17 06:00 Anisocytosis 1+ 05/26/17 06:20 Microcytosis 1+ 05/26/17 06:20 Macrocytosis 0 05/24/17 06:00 Target Cells 1+ 05/26/17 06:20 Stomatocytes 1+ 05/26/17 06:20 PT with INR 12.30 SEC (9.98-11.88) H 05/18/17 01: INR 1.09 (0.82-1.09) 05/18/17 01:17 PTT (Actin FS) 24.6 SECONDS (26.9-34.4) L 05/26/17 06:20 Anticoagulation Therapy Y 05/18/17 06:00 Puncture Site Left radial 05/18/17 06:00 ABG pH 7.38 (7.35-7.45) 05/18/17 06:00 ABG pCO2 at Pt Temp 25.4 mmHg (35-45) L 05/18/17 06:00 ABG pO2 at Pt Temp 88.3 mmHg (68-100) 05/18/17 06:00 ABG HCO3 14.7 meq/L (22-26) L* 05/18/17 06:00 ABG O2 Sat (Measured) 96.0 % (90-98.9) 05/18/17 06:00 ABG O2 Content 9.1 % vol (15-22) L* 05/18/17 06:00 ABG Base Excess -9.1 meq/l (-2-2) L 05/18/17 06:00 Neil Test Positive 05/18/17 06:00 VBG pH 7.40 (7.32-7.42) 05/18/17 01:17 POC VBG pCO2 29.9 mmHg (38-52) L D 05/18/17 01:17 POC VBG pO2 39.2 mmHg (28-48) D 05/18/17 01:17 Mixed VBG HCO3 18.2 meq/L (19-25) L 05/18/17 01:17 O2 Delivery Device Y 05/18/17 06:00 Oxygen Flow Rate 3l 05/18/17 06:00 Vent Mode Y 05/18/17 06:00 Vent Rate Y 05/18/17 06:00 Mechanical Rate Y 05/18/17 06:00 Pressure Support Vent Y 05/18/17 06:00 Sodium 142 mmol/L (136-145) 05/26/17 06:20 Potassium 3.6 mmol/L (3.5-5.1) 05/26/17 06:20 Chloride 102 mmol/L (98-107) 05/26/17 06:20 Carbon Dioxide 30 mmol/L (21-32) 05/26/17 06:20 Anion Gap 10 (8-16) 05/26/17 06:20 BUN 35 mg/dL (7-18) H D 05/26/17 06:20 Creatinine 2.2 mg/dL (0.55-1.02) H D 05/26/17 06:20 Creat Clearance w eGFR 18.44 (>60) 05/24/17 06:00 Random Glucose 100 mg/dL (74-106) 05/26/17 06:20 Serum Osmolality 294 mosm/kg (278-305) 05/18/17 05:12 Lactic Acid 1.7 mmol/L (0.4-2.0) 05/18/17 18:52 Calcium 7.1 mg/dL (8.5-10.1) L 05/26/17 06:20 Phosphorus 4.4 mg/dL (2.5-4.9) D 05/26/17 06:20 Magnesium 1.8 mg/dL (1.8-2.4) 05/26/17 06:20 Total Bilirubin 0.8 mg/dL (0.2-1.0) D 05/24/17 06:00 AST 41 U/L (15-37) H D 05/24/17 06:00 ALT 15 U/L (12-78) 05/24/17 06:00 Alkaline Phosphatase 53 U/L (45-117) 05/24/17 06:00 LD Total 391 U/L (84-246) H D 05/19/17 08:20 Creatine Kinase 37 IU/L (26-192) 05/18/17 01:17 Troponin I < 0.02 ng/ml (0.00-0.05) 05/18/17 01:17 Total Protein 5.5 g/dl (6.4-8.2) L 05/24/17 06:00 Albumin 2.2 g/dl (3.4-5.0) L 05/24/17 06:00 TSH 1.30 uIU/ml (0.358-3.74) D 05/19/17 08:20 Free T4 0.99 ng/dl (0.76-1.46) 05/19/17 08:20 Cortisol AM Sample 16.9 ug/dL (.) 05/18/17 13:33 Urine Color Ltyellow 05/19/17 15:30 Urine Appearance Slcloudy 05/19/17 15:30 Urine pH 6.0 (5.0-8.0) 05/19/17 15:30 Ur Specific [place] 1.006 (1.001-1.035) 05/19/17 15:30 Urine Protein 1+ (NEGATIVE) H 05/19/17 15:30 Urine Glucose (UA) Negative (NEGATIVE) 05/19/17 15:30 Urine Ketones Negative (NEGATIVE) 05/19/17 15:30 Urine Blood 3+ (NEGATIVE) H 05/19/17 15:30 Urine Nitrite Negative (NEGATIVE) 05/19/17 15:30 Urine Bilirubin Negative (NEGATIVE) 05/19/17 15:30 Urine Urobilinogen Negative mg/dL (0.2-1.0) 05/19/17 15:30 Ur Leukocyte Esterase Trace (NEGATIVE) H 05/19/17 15:30 Urine WBC (Auto) 2 /hpf (3-5) 05/19/17 15:30 Urine RBC (Auto) 1 /hpf (0-3) 05/19/17 15:30 Ur Epithelial Cells Rare /HPF (FEW) 05/19/17 15:30 Urine Bacteria Rare /hpf (NONE SEEN) 05/19/17 15:30 Urine Mucus Rare 05/18/17 01:57 Urine Osmolality 196 mosm/kg (300-900) L 05/18/17 11:30 Ur Random Sodium 54 MMOL/L 05/19/17 15:30 Ur Random Potassium 9.3 MMOL/L 05/19/17 15:30 Ur Random Chloride 48 MMOL/L 05/19/17 15:30 Urine Creatinine < 13.0 mg/dL (20-320) L 05/19/17 15:30 Stool Occult Blood Negative (NEGATIVE) 05/21/17 15:30 Stool O & P Wet [place] Canc[place] 05/19/17 22:15 Digoxin 2.3427 ng/ml (0.8-2.0) H 05/20/17 09:50 Hep A IgM Ab Confirm Negative (Negative) 05/21/17 21:40 Hepatitis A Ab Total Positive (Negative) H 05/21/17 21:40 Hep Bs Antigen Negative (Negative) 05/21/17 21:40 Hep Bs Antibody Non reactive (.) 05/21/17 21:40 Hep B Core Total Ab Negative (Negative) 05/21/17 21:40 Hepatitis C Antibody <0.1 s/co ratio (0.0-0.9) 05/21/17 21:40 O & P Permanent Slide Cancelled 05/19/17 22:15 Beta-(1,3)-D-Glucan 66 pg/mL (<80) 05/19/17 08:20 Blood Type O POSITIVE 05/23/17 11:50 Antibody Screen Negative 05/23/17 11:50 Crossmatch See Detail 05/23/17 11:50 tele: sr, pacs, svt this AM echo 02/2017: nl lv/rv, mild mr/tr, nl rvsp echo 04/2017: nl lv/rv, mild mr echo 04/2017 repeat: nl lv/rv, mild-mod mr ct chest: b/l effs, ILD a/p: 81 f hx MM, hld, here with sepsis and new onset afib. 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 source (PNA?)--ID notes appreciated -cont abx per ID -chemo per onc -bp borderline, mostly 90s-100s, off pressors--dropped to 80s 05/21 during HD. Recently bp's improved 110's-120's. -pancytopenic--per onc. new onset afib, brief PSVT runs: -occurred here in setting of sepsis. chadsvasc is 3, --> pt with chronic anemia , d/w heme and cleared for AC -05/21 during HD had episodes of AFL with 2:1 > variable conduction, rapid HRs, with low BPs in 80s. -if continues to occur during HD, it will make successful dialysis very difficult. -has remained in sinus since. d/w'd dtr's option of adding amio for SVT/AFL suppression, but they prefer holding off unless recurrent episodes, since they are in general concerned regarding medication toxicity potential. -05/22: family declining heparin b/c of bleeding thru skin on hands and concerns of risks of medication. Dr. Gibson explained to them that there is an uncertain degree of risk of embolism/CVA with brief PAFL, though it is felt to be statistically very low with brief duration as with her. they verbalize understanding and preference to take that risk in order to avoid risk of bleeding. heparin stopped. - 05/23: still with intermittent runs of svt. -05/24-: no sig svt overnight -05/26: brief svt this AM when being cleaned, cont tele for now acute hypoxic resp failure, acute diast chf: -05/20: pt with signif tachypnea, using resp muscles, + audible wheezing. cxr with incr effusions and chf pattern. s/p lasix 40 ivp x1 -05/21: renal fxn worsening significantly (bun/creat 101/5.7), K 6.6. CXR much improved. plan per dr bateman d/w family is to begin HD today (shiley catheter access placed this am). defer lasix - 05/23: sob continues to improve. s/p HD today. volume status per renal. -05/24-: hd per renal aj: -? sepsis ATN -required initiation of HD here
--- NOTE | 2017-05-26 12:57 | PN ---
Physical Exam: SUBJECTIVE: Patient seen and examined at bedside. Today, pt interactive. Nodding to questions, appears less confused. Denies FELIPE, fever, chills, ear pain , hearing loss, or abdominal pain. Overnight, pt retaining urine. Bladder scan ~400 ccs, straight cathed. Otherwise , has been afebrile. Had R sided permacath placement yesterday and underwent HD. OBJECTIVE: Vital Signs Period Temp Pulse Resp BP Sys/Saucedo Pulse Ox Last 24 Hr 97.4 F-97.9 F 60-103 14-18 115-138/66-86 95-100 GENERAL: The patient is awake, interactive, resting in bed. In no acute distress. On 2L NC 02 HEAD: Normal with no signs of trauma. EYES: PERRL, extraocular movements intact, sclera anicteric, conjunctiva clear. NECK: Trachea midline, supple. LUNGS: wheezing appreciated in RUL. otherwise, without crackles or rhonchi. No accessory m. usage HEART: Regular rate and rhythm, S1, S2 without murmur, rub or gallop. ABDOMEN: Soft, obese, nontender, moderately distended, normoactive bowel sounds , no guarding EXTREMITIES: 2+ posterior tibial pulses, warm, trace edema b/l. NEUROLOGICAL: Cranial nerves II through XII appear to be grossly intact. PSYCH: guarded Laboratory Results - last 24 hr 05/26/17 05/26/17 05/26/17 06:20 06:20 06:20 WBC 2.1 L RBC 3.18 L Hgb 9.1 L Hct 28.0 L MCV 87.8 MCH 28.6 MCHC 32.6 RDW 18.3 H Plt Count 70 L MPV 7.6 Total Counted 100 Neutrophils % No Result Required. Neutrophils % (Manual) 68.0 Band Neutrophils % 2.0 Lymphocytes % No Result Required. Lymphocytes % (Manual) 18.0 D Monocytes % (Manual) 12 H D Hypochromia 1+ Platelet Estimate Decreased Platelet Comment No clumping noted Polychromasia 1+ Anisocytosis 1+ Microcytosis 1+ Target Cells 1+ Stomatocytes 1+ PTT (Actin FS) 24.6 L Sodium 142 Potassium 3.6 Chloride 102 Carbon Dioxide 30 Anion Gap 10 BUN 35 H D Creatinine 2.2 H D Random Glucose 100 Calcium 7.1 L Phosphorus 4.4 D Magnesium 1.8 Active Medications Generic Name Dose Route Start Last Admin Trade Name Freq PRN Reason Stop Dose Admin Fentanyl 25 mcg 05/25/17 13:48 Sublimaze Injection - IVPUSH [id number] PRN PAIN Meropenem 500 mg in 10 mls @ 120 mls/hr 05/25/17 22:00 05/26/17 10:06 Merrem (Restricted To Id) - IVPUSH 120 mls/hr BID TOMÁS Administration Ipratropium [place] 1 amp 05/25/17 18:00 05/26/17 11:44 Atrovent 0.02% Nebulizer - NEB 1 amp QIDR TOMÁS Administration Methylprednisolone Sodium Succinate 20 mg 05/25/17 22:00 05/26/17 10:05 Solu-Medrol - IVPUSH 20 mg BID TOMÁS Administration Metoprolol Tartrate 5 mg 05/25/17 14:02 Lopressor Injection - IVPUSH Q1H PRN TACHYCARDIA Ondansetron HCl 4 mg 05/25/17 13:48 Zofran Injection IVPUSH Q6H PRN NAUSEA AND/OR VOMITING Pantoprazole Sodium 40 mg 05/26/17 10:00 05/26/17 10:06 Protonix - PO 40 mg DAILY TOMÁS Administration Microbiology 05/19/17 22:15 Stool Clostridium difficile Antigen (ROSALINDA) - Final 05/19/17 22:15 Stool Clostridium difficile Toxin Assay - Final 05/18/17 05:30 Nasopharyngeal Swab Influenza Types A,B Antigen (ROSALINDA) - Final 05/18/17 05:30 Nasopharyngeal Swab - Final 05/18/17 01:17 Blood - Peripheral Venous Blood Culture - Final NO GROWTH AFTER 5 DAYS INCUBATION 05/18/17 01:17 Blood - Peripheral Venous Blood Culture - Final NO GROWTH AFTER 5 DAYS INCUBATION 05/18/17 00:15 Urine - Urine Farrar Urine Culture - Final NO GROWTH OBTAINED ASSESSMENT/PLAN: #severe neutropenic fever possibly 2/2 chemo, or MM #sepsis 2/2 PNA -afebrile today -ANC ~[id number], without neutropenia -permacath placed yesterday, last HD session (05/25/17) -meropenem 500 mg BID- completed 8 day course. has been d/c -will monitor off abx Thank you Camila Singh MD PGY-1 ID Team Visit type - Emergency Visit Emergency Visit: No - New Patient This patient is new to me today: No - Critical Care Critical Care patient: No
--- NOTE | 2017-05-26 13:25 | PN ---
Progress Note, Physician History of Present Illness: pulmonary awake,non-verbal,-resp distress - Current Medication List Current Medications: Active Medications Fentanyl (Sublimaze Injection -) 25 mcg IVPUSH [id number] PRN PRN Reason: PAIN Meropenem (Merrem (Restricted To Id) -) 500 mg in 10 mls @ 120 mls/hr IVPUSH BID [facility] Last Admin: 05/26/17 10:06 Dose: 120 mls/hr Ipratropium [place] (Atrovent 0.02% Nebulizer -) 1 amp NEB QIDR [facility] Last Admin: 05/26/17 11:44 Dose: 1 amp Methylprednisolone Sodium Succinate (Solu-Medrol -) 20 mg IVPUSH BID [facility] Last Admin: 05/26/17 10:05 Dose: 20 mg Metoprolol Tartrate (Lopressor Injection -) 5 mg IVPUSH Q1H PRN PRN Reason: TACHYCARDIA Ondansetron HCl (Zofran Injection) 4 mg IVPUSH Q6H PRN PRN Reason: NAUSEA AND/OR VOMITING Pantoprazole Sodium (Protonix -) 40 mg PO DAILY [facility] Last Admin: 05/26/17 10:06 Dose: 40 mg - Objective Vital Signs: Vital Signs Temperature 97.6 F 05/26/17 06:00 Pulse Rate 86 05/26/17 06:00 Respiratory Rate 18 05/26/17 06:00 Blood Pressure 129/77 05/26/17 06:00 O2 Sat by Pulse Oximetry (%) 95 05/25/17 21:00 Constitutional: Yes: Well Nourished, Calm Eyes: Yes: WNL HENT: Yes: WNL Neck: Yes: WNL Cardiovascular: Yes: Pulse Irregular, S1, S2 Respiratory: Yes: Diminished (poor inspiratory effort) Gastrointestinal: Yes: Normal Bowel Sounds, Soft Extremities: Yes: WNL Edema: No Labs: CBC, BMP 05/26/17 06:20 05/26/17 06:20 INR, PTT INR 1.09 (0.82-1.09) 05/18/17 01:17 - ....Imaging Chest X-ray: Report Reviewed, Image Reviewed (increasde [place]is congestion) Problem List - Problems (1) Acute respiratory failure Code(s): J96.00 - ACUTE RESPIRATORY FAILURE, UNSP W HYPOXIA OR HYPERCAPNIA (2) Atrial fibrillation with RVR Code(s): I48.91 - UNSPECIFIED ATRIAL FIBRILLATION (3) Hyperkalemia, diminished renal excretion Code(s): E87.5 - HYPERKALEMIA (4) Multiple myeloma Code(s): C90.00 - MULTIPLE MYELOMA NOT HAVING ACHIEVED REMISSION (5) Sepsis Code(s): A41.9 - SEPSIS, UNSPECIFIED ORGANISM (6) Severe sepsis Code(s): A41.9 - SEPSIS, UNSPECIFIED ORGANISM; R65.20 - SEVERE SEPSIS WITHOUT SEPTIC SHOCK (7) Acute renal failure Code(s): N17.9 - ACUTE KIDNEY FAILURE, UNSPECIFIED (8) Metabolic encephalopathy Code(s): G93.41 - METABOLIC ENCEPHALOPATHY (9) Multiple myeloma Code(s): C90.00 - MULTIPLE MYELOMA NOT HAVING ACHIEVED REMISSION Qualifiers: Assessment/Plan A/P r/o Pneumonia Neutropenic Severe Sepsis Acute on Chronic Renal Failure Lactic Acidosis Hyponatremia Hyperkalemia Multiple Myeloma on chemo COPD Hyperlipidemia - HD as per renal NIPPV prn,O2 - antibiotics as per ID - steroid taper - atrovent nebs - monitor urine output, creatinine - monitor CBC - transfuse as needed DR DOMINGO -
--- NOTE | 2017-05-26 13:37 | PN ---
Progress Note (short form) - Note Progress Note: Chart reviewed in detail. ROS not obtained, is awake but difficult to O/E: General: alert and awake, slow to respond. HEENT: NCAT Cardiac: rrr Lungs: decreased breath sounds Abdomen: ND NT LE: +1 edema b/l LE. Last Vital Signs Temp Pulse Resp BP Pulse Ox 97.6 F 86 18 129/77 95 05/26/17 06:00 05/26/17 06:00 05/26/17 06:00 05/26/17 06:00 05/25/17 21:00 CBC, BMP 05/26/17 06:20 05/26/17 06:20 Current Medications Generic Name Dose Route Start Last Admin Trade Name Freq PRN Reason Stop Dose Admin Fentanyl 25 mcg 05/25/17 13:48 Sublimaze Injection - IVPUSH [id number] PRN PAIN Meropenem 500 mg in 10 mls @ 120 mls/hr 05/25/17 22:00 05/26/17 10:06 Merrem (Restricted To Id) - IVPUSH 120 mls/hr BID TOMÁS Administration Ipratropium [place] 1 amp 05/25/17 18:00 05/26/17 11:44 Atrovent 0.02% Nebulizer - NEB 1 amp QIDR TOMÁS Administration Methylprednisolone Sodium Succinate 20 mg 05/25/17 22:00 05/26/17 10:05 Solu-Medrol - IVPUSH 20 mg BID TOMÁS Administration Metoprolol Tartrate 5 mg 05/25/17 14:02 Lopressor Injection - IVPUSH Q1H PRN TACHYCARDIA Ondansetron HCl 4 mg 05/25/17 13:48 Zofran Injection IVPUSH Q6H PRN NAUSEA AND/OR VOMITING Pantoprazole Sodium 40 mg 05/26/17 10:00 05/26/17 10:06 Protonix - PO 40 mg DAILY TOMÁS Administration Patient with Multiple Myeloma not in CR, last treatment was in 03/2017. The new cytopenias likely from Myeloma. course complicated by worsening CKD now to ESRD. meropenam ,last day counts stable. supportive transfusions as needed On HD/JACOB per renal protocol for ESRD now methylpred taper per Pulm as per family wishes, they could always follow with us in the office. dispo per family looking to SNF Problem List - Problems (1) Atrial fibrillation with RVR Code(s): I48.91 - UNSPECIFIED ATRIAL FIBRILLATION (2) Fever and neutropenia Code(s): D70.9 - NEUTROPENIA, UNSPECIFIED; R50.81 - FEVER PRESENTING WITH CONDITIONS CLASSIFIED ELSEWHERE (3) Acute renal failure Code(s): N17.9 - ACUTE KIDNEY FAILURE, UNSPECIFIED (4) Multiple myeloma Code(s): C90.00 - MULTIPLE MYELOMA NOT HAVING ACHIEVED REMISSION
--- NOTE | 2017-05-26 14:20 | PN ---
Teaching Attending Note Name of Resident: Camila Singh ATTENDING PHYSICIAN STATEMENT I saw and evaluated the patient. I reviewed the resident's note and discussed the case with the resident. I agree with the resident's findings and plan as documented. SUBJECTIVE: Awake, confused Offers no complaints Afebrile WBC 2.1 ANC 1.4 Cultures negative OBJECTIVE: + dialysis catheter cor S1S2 decreased BS bilaterally abdomen soft, non tender + edema ASSESSMENT AND PLAN: Pancytopenia Neutropenia- resolved ESRD D/C meropenem, observe off Please re-consult as needed
--- NOTE | 2017-05-26 14:54 | PN ---
Progress Note, Physician History of Present Illness: Pt seen and examined at bedside. No acute change in status. - Current Medication List Current Medications: Active Medications Fentanyl (Sublimaze Injection -) 25 mcg IVPUSH [id number] PRN PRN Reason: PAIN Ipratropium [place] (Atrovent 0.02% Nebulizer -) 1 amp NEB QIDR REPLACED BY [facility] Last Admin: 05/26/17 11:44 Dose: 1 amp Methylprednisolone Sodium Succinate (Solu-Medrol -) 20 mg IVPUSH BID REPLACED BY [facility] Last Admin: 05/26/17 10:05 Dose: 20 mg Metoprolol Tartrate (Lopressor Injection -) 5 mg IVPUSH Q1H PRN PRN Reason: TACHYCARDIA Ondansetron HCl (Zofran Injection) 4 mg IVPUSH Q6H PRN PRN Reason: NAUSEA AND/OR VOMITING Pantoprazole Sodium (Protonix -) 40 mg PO DAILY REPLACED BY [facility] Last Admin: 05/26/17 10:06 Dose: 40 mg - Objective Vital Signs: Vital Signs Temperature 97.6 F 05/26/17 06:00 Pulse Rate 86 05/26/17 06:00 Respiratory Rate 18 05/26/17 06:00 Blood Pressure 129/77 05/26/17 06:00 O2 Sat by Pulse Oximetry (%) 95 05/25/17 21:00 Constitutional: Yes: Calm Eyes: Yes: Conjunctiva Clear HENT: Yes: Atraumatic Cardiovascular: Yes: S1, S2 Respiratory: Yes: On Nasal O2 Gastrointestinal: Yes: Soft Genitourinary: Yes: Incontinence Musculoskeletal: Yes: Muscle Weakness Edema: Yes Edema: LLE: Trace, RLE: Trace Neurological: Yes: Confusion Labs: CBC, BMP 05/26/17 06:20 05/26/17 06:20 INR, PTT INR 1.09 (0.82-1.09) 05/18/17 01:17 Problem List - Problems (1) Atrial fibrillation with RVR Code(s): I48.91 - UNSPECIFIED ATRIAL FIBRILLATION (2) Fever and neutropenia Code(s): D70.9 - NEUTROPENIA, UNSPECIFIED; R50.81 - FEVER PRESENTING WITH CONDITIONS CLASSIFIED ELSEWHERE (3) Hyperkalemia, diminished renal excretion Code(s): E87.5 - HYPERKALEMIA (4) Hyponatremia Code(s): E87.1 - HYPO-OSMOLALITY AND HYPONATREMIA (5) Multiple myeloma Code(s): C90.00 - MULTIPLE MYELOMA NOT HAVING ACHIEVED REMISSION (6) Sepsis Code(s): A41.9 - SEPSIS, UNSPECIFIED ORGANISM (7) Multiple myeloma Code(s): C90.00 - MULTIPLE MYELOMA NOT HAVING ACHIEVED REMISSION Qualifiers: Assessment/Plan Current Medications Generic Name Dose Route Start Last Admin Trade Name Freq PRN Reason Stop Dose Admin Fentanyl 25 mcg 05/25/17 13:48 Sublimaze Injection - IVPUSH [id number] PRN PAIN Ipratropium [place] 1 amp 05/25/17 18:00 05/26/17 11:44 Atrovent 0.02% Nebulizer - NEB 1 amp QIDR TOMÁS Administration Methylprednisolone Sodium Succinate 20 mg 05/25/17 22:00 05/26/17 10:05 Solu-Medrol - IVPUSH 20 mg BID TOMÁS Administration Metoprolol Tartrate 5 mg 05/25/17 14:02 Lopressor Injection - IVPUSH Q1H PRN TACHYCARDIA Ondansetron HCl 4 mg 05/25/17 13:48 Zofran Injection IVPUSH Q6H PRN NAUSEA AND/OR VOMITING Pantoprazole Sodium 40 mg 05/26/17 10:00 05/26/17 10:06 Protonix - PO 40 mg DAILY TOMÁS Administration Impression 1. SHANIA 2. sepsis 3. anemia 4. CKD/ESRD 5. multiple myeloma 6. malnutrition 7. proteinuria 8. possible hepatocellular disease seen on ultrasound 9. interstitial lung disease 10. hyponatremia 11. hyperkalemia Plan - HD in am - case discussed with family - spoke to Sarahy on the phone [phone] - epogen for anemia - abx per ID - will follow Dr Soto
--- NOTE | 2017-05-26 20:02 | PN ---
Progress Note, Physician Chief Complaint: Pt. pain controlled. No anesthesia complaints. - Current Medication List Current Medications: Active Medications Epoetin [place] (Epogen -) 6,000 units IVPUSH ONCE ONE Stop: 05/26/17 14:55 Fentanyl (Sublimaze Injection -) 25 mcg IVPUSH [id number] PRN PRN Reason: PAIN Ipratropium [place] (Atrovent 0.02% Nebulizer -) 1 amp NEB QIDR [facility] Last Admin: 05/26/17 18:11 Dose: 1 amp Methylprednisolone Sodium Succinate (Solu-Medrol -) 20 mg IVPUSH BID [facility] Last Admin: 05/26/17 10:05 Dose: 20 mg Metoprolol Tartrate (Lopressor Injection -) 5 mg IVPUSH Q1H PRN PRN Reason: TACHYCARDIA Ondansetron HCl (Zofran Injection) 4 mg IVPUSH Q6H PRN PRN Reason: NAUSEA AND/OR VOMITING Pantoprazole Sodium (Protonix -) 40 mg PO DAILY [facility] Last Admin: 05/26/17 10:06 Dose: 40 mg - Objective Vital Signs: Vital Signs Temperature 98.4 F 05/26/17 18:39 Pulse Rate 84 05/26/17 18:39 Respiratory Rate 18 05/26/17 18:39 Blood Pressure 118/57 05/26/17 18:39 O2 Sat by Pulse Oximetry (%) 95 05/25/17 21:00 Constitutional: Yes: Well Nourished, No Distress, Calm Musculoskeletal: Yes: WNL Neurological: Yes: WNL, Alert, Oriented Labs: CBC, BMP 05/26/17 06:20 05/26/17 06:20 INR, PTT INR 1.09 (0.82-1.09) 05/18/17 01:17 Assessment/Plan POD#1 s/p permacath placement under MAC. Doing well. D/C from anesthesia care.
[2017-05-27] MEDS: IPRATROPIUM BR 0.02% 0.5 MG/2.5 ML VIAL.NEB. NEB SCH ×4 (06:30→23:06)
[2017-05-27 07:32] LABS: HEMATOCRIT 27.2 % (32.4-45.2); HEMOGLOBIN 8.9 GM/dL (10.7-15.3); MCH 28.6 pg (25.7-33.7); MCHC 32.5 g/dl (32.0-36.0); MEAN CELL VOLUME 87.9 fl (80-96); PLATELET COUNT 73 K/MM3 (134-434); RDW 18.2 % (11.6-15.6); WHITE BLOOD COUNT 2.1 K/mm3 (4.0-10.0)
[2017-05-27 07:49] LABS: ANION GAP 12 (8-16); BLOOD UREA NITROGEN 42 mg/dL (7-18); CHLORIDE 103 mmol/L (98-107); CO2 29 mmol/L (21-32); CREATININE 2.7 mg/dL (0.55-1.02); GLUCOSE,RANDOM 84 mg/dL (74-106); MAGNESIUM 1.7 mg/dL (1.8-2.4); PHOSPHOROUS 4.7 mg/dL (2.5-4.9); POTASSIUM 3.5 mmol/L (3.5-5.1); SODIUM 144 mmol/L (136-145)
[2017-05-27 08:29] LABS: CALCIUM 6.9 mg/dL (8.5-10.1)
[2017-05-27] MEDS: methylPREDNISolone NA SUCC 40 MG/1 ML VIAL IVPUSH SCH ×2 (09:59→22:29)
[2017-05-27] MEDS: PANTOPRAZOLE 40 MG TABLET (FP) PO SCH ×2 (09:59→10:10)
--- NOTE | 2017-05-27 11:22 | PN ---
Progress Note (short form) - Note Progress Note: Awake. No acute events overnight Breathing is non-labored. Intake & Output 05/24/17 05/25/17 05/26/17 05/27/17 23:59 23:59 23:59 23:59 Intake Total 270 450 100 110 Output Total 250 5 300 Balance 20 445 -200 110 Last Vital Signs Temp Pulse Resp BP Pulse Ox 97.6 F 79 18 120/72 96 05/27/17 09:47 05/27/17 10:10 05/27/17 09:47 05/27/17 09:47 05/27/17 10:00 Active Medications Epoetin [place] (Epogen -) 6,000 units IVPUSH ONCE ONE Stop: 05/26/17 14:55 Fentanyl (Sublimaze Injection -) 25 mcg IVPUSH [id number] PRN PRN Reason: PAIN Ipratropium [place] (Atrovent 0.02% Nebulizer -) 1 amp NEB QIDR [facility] Last Admin: 05/27/17 06:30 Dose: Not Given Methylprednisolone Sodium Succinate (Solu-Medrol -) 20 mg IVPUSH BID [facility] Last Admin: 05/27/17 09:59 Dose: 20 mg Metoprolol Tartrate (Lopressor Injection -) 5 mg IVPUSH Q1H PRN PRN Reason: TACHYCARDIA Ondansetron HCl (Zofran Injection) 4 mg IVPUSH Q6H PRN PRN Reason: NAUSEA AND/OR VOMITING Pantoprazole Sodium (Protonix -) 40 mg PO DAILY [facility] Last Admin: 05/27/17 10:10 Dose: Not Given Constitutional: Yes: NAD Eyes: Yes: WNL HENT: Yes: WNL Neck: Yes: WNL Cardiovascular: Yes: Pulse Irregular, S1, S2 Respiratory: Yes: Diminished at the bases Gastrointestinal: Yes: Normal Bowel Sounds, Soft Extremities: Yes: WNL Edema: No Labs: Laboratory Results - last 24 hr 05/23/17 05/27/17 05/27/17 11:50 06:30 06:30 WBC 2.1 L RBC 3.10 L Hgb 8.9 L Hct 27.2 L MCV 87.9 MCH 28.6 MCHC 32.5 RDW 18.2 H Plt Count 73 L MPV 8.0 Neutrophils % No Result Required. Lymphocytes % No Result Required. Sodium 144 Potassium 3.5 Chloride 103 Carbon Dioxide 29 Anion Gap 12 BUN 42 H Creatinine 2.7 H D Random Glucose 84 Calcium 6.9 L* Phosphorus 4.7 Magnesium 1.7 L Blood Type O POSITIVE Antibody Screen Negative Crossmatch See Detail Problem List - Problems (1) Acute respiratory failure Code(s): J96.00 - ACUTE RESPIRATORY FAILURE, UNSP W HYPOXIA OR HYPERCAPNIA (2) Atrial fibrillation with RVR Code(s): I48.91 - UNSPECIFIED ATRIAL FIBRILLATION (3) Hyperkalemia, diminished renal excretion Code(s): E87.5 - HYPERKALEMIA (4) Multiple myeloma Code(s): C90.00 - MULTIPLE MYELOMA NOT HAVING ACHIEVED REMISSION (5) Sepsis Code(s): A41.9 - SEPSIS, UNSPECIFIED ORGANISM (6) Severe sepsis Code(s): A41.9 - SEPSIS, UNSPECIFIED ORGANISM; R65.20 - SEVERE SEPSIS WITHOUT SEPTIC SHOCK (7) Acute renal failure Code(s): N17.9 - ACUTE KIDNEY FAILURE, UNSPECIFIED (8) Metabolic encephalopathy Code(s): G93.41 - METABOLIC ENCEPHALOPATHY (9) Multiple myeloma Code(s): C90.00 - MULTIPLE MYELOMA NOT HAVING ACHIEVED REMISSION Qualifiers: Assessment/Plan A/P r/o Pneumonia Neutropenic Severe Sepsis Acute on Chronic Renal Failure Lactic Acidosis Hyponatremia Hyperkalemia Multiple Myeloma on chemo COPD Hyperlipidemia - HD as per renal - NC o2 to maintain saturation - ABX per ID - Steroid taper - atrovent nebs - normal transfusion thresholds Dr Yee
[2017-05-27 11:47] LABS: ANISOCYTOSIS 3+; MACROCYTOSIS 0; PLATELET ESTIMATE DECREASED; TARGET CELLS 1+; TEAR DROP CELLS 1+
[2017-05-27] MEDS ORDERED: EPOETIN ALFA 3,000 UNIT/1 ML ML IVPUSH ONE (14:00)
--- NOTE | 2017-05-27 14:30 | PN ---
Progress Note (short form) - Note Progress Note: family had question about safety of dialysis with her afib and varying vr including bradycardic moments computer clerk cleared her for hd Current Medications Fentanyl (Sublimaze Injection -) 25 mcg IVPUSH [id number] PRN PRN Reason: PAIN Ipratropium [place] (Atrovent 0.02% Nebulizer -) 1 amp NEB QIDR [facility] Last Admin: 05/27/17 11:54 Dose: Not Given Methylprednisolone Sodium Succinate (Solu-Medrol -) 20 mg IVPUSH BID [facility] Last Admin: 05/27/17 09:59 Dose: 20 mg Metoprolol Tartrate (Lopressor Injection -) 5 mg IVPUSH Q1H PRN PRN Reason: TACHYCARDIA Ondansetron HCl (Zofran Injection) 4 mg IVPUSH Q6H PRN PRN Reason: NAUSEA AND/OR VOMITING Pantoprazole Sodium (Protonix -) 40 mg PO DAILY [facility] Last Admin: 05/27/17 10:10 Dose: Not Given Last Vital Signs Temp Pulse Resp BP Pulse Ox 97.6 F 79 18 120/72 96 05/27/17 09:47 05/27/17 10:10 05/27/17 09:47 05/27/17 09:47 05/27/17 10:00 Lungs clear heart irr irr Abd soft nontender ext no edema CBC, BMP 05/27/17 06:30 05/27/17 06:30 started on dialysis treatment uneventful replace k amd mg++
--- NOTE | 2017-05-27 15:37 | PN ---
Progress Note, Physician History of Present Illness: Patient without complaints currently (taciturn, saying she feels OK only). HR has been going up and down (from 50's to 150's, now in 90's). - Current Medication List Current Medications: Active Medications Fentanyl (Sublimaze Injection -) 25 mcg IVPUSH [id number] PRN PRN Reason: PAIN Ipratropium [place] (Atrovent 0.02% Nebulizer -) 1 amp NEB QIDR [facility] Last Admin: 05/27/17 11:54 Dose: Not Given Methylprednisolone Sodium Succinate (Solu-Medrol -) 20 mg IVPUSH BID [facility] Last Admin: 05/27/17 09:59 Dose: 20 mg Metoprolol Tartrate (Lopressor Injection -) 5 mg IVPUSH Q1H PRN PRN Reason: TACHYCARDIA Ondansetron HCl (Zofran Injection) 4 mg IVPUSH Q6H PRN PRN Reason: NAUSEA AND/OR VOMITING Pantoprazole Sodium (Protonix -) 40 mg PO DAILY [facility] Last Admin: 05/27/17 10:10 Dose: Not Given - Objective Vital Signs: Vital Signs Temperature 97.6 F 05/27/17 14:25 Pulse Rate 87 05/27/17 14:30 Respiratory Rate 18 05/27/17 14:30 Blood Pressure 116/66 05/27/17 14:30 O2 Sat by Pulse Oximetry (%) 96 05/27/17 10:00 Constitutional: Yes: No Distress, Calm Respiratory: Yes: Regular, Diminished (at bases) Gastrointestinal: Yes: Normal Bowel Sounds, Soft. No: Distention, Tenderness Extremities: Yes: Other (catheter in right chest) Edema: Yes Edema: LLE: Trace, RLE: Trace Labs: CBC, BMP 05/27/17 06:30 05/27/17 06:30 INR, PTT INR 1.09 (0.82-1.09) 05/18/17 01:17 Assessment/Plan Current Active Problems Acute respiratory failure (Acute) Atrial fibrillation with RVR (Acute) ESRD (end stage renal disease) (Acute) Fever and neutropenia (Acute) Hyperkalemia, diminished renal excretion (Acute) Hyponatremia (Acute) Multiple myeloma (Acute) Sepsis (Acute) Sepsis affecting skin (Acute) Septic shock (Acute) Severe sepsis (Acute) -to get HD in her room today, HR being monitored -completed course abx for sepsis
--- NOTE | 2017-05-27 17:07 | PN ---
Progress Note (short form) - Note Progress Note: CC: afib s: awake, confused, appears comfortable, no overnight events. Had HD today. Current Medications Fentanyl (Sublimaze Injection -) 25 mcg IVPUSH [id number] PRN PRN Reason: PAIN Ipratropium [place] (Atrovent 0.02% Nebulizer -) 1 amp NEB QIDR [facility] Last Admin: 05/27/17 11:54 Dose: Not Given Methylprednisolone Sodium Succinate (Solu-Medrol -) 20 mg IVPUSH BID [facility] Last Admin: 05/27/17 09:59 Dose: 20 mg Metoprolol Tartrate (Lopressor Injection -) 5 mg IVPUSH Q1H PRN PRN Reason: TACHYCARDIA Ondansetron HCl (Zofran Injection) 4 mg IVPUSH Q6H PRN PRN Reason: NAUSEA AND/OR VOMITING Pantoprazole Sodium (Protonix -) 40 mg PO DAILY [facility] Last Admin: 05/27/17 10:10 Dose: Not Given Vital Signs - 24 hr 05/26/17 05/26/17 05/27/17 18:39 21:00 02:00 Temperature 98.4 F 98.1 F Pulse Rate 84 90 Respiratory 18 18 18 Rate Blood Pressure 118/57 130/80 O2 Sat by Pulse 95 Oximetry (%) 05/27/17 05/27/17 05/27/17 06:00 09:47 10:00 Temperature 97.4 F L 97.6 F Pulse Rate 78 52 L Respiratory 18 18 Rate Blood Pressure 120/70 120/72 O2 Sat by Pulse 96 Oximetry (%) 05/27/17 05/27/17 05/27/17 10:10 13:30 14:25 Temperature 97.8 F 97.6 F Pulse Rate 79 85 90 Respiratory 23 18 Rate Blood Pressure 111/71 129/64 O2 Sat by Pulse Oximetry (%) 05/27/17 05/27/17 05/27/17 14:30 15:00 15:30 Temperature Pulse Rate 87 114 H 104 H Respiratory 18 18 18 Rate Blood Pressure 116/66 114/79 114/80 O2 Sat by Pulse Oximetry (%) 05/27/17 16:00 Temperature Pulse Rate 94 H Respiratory 18 Rate Blood Pressure 110/73 O2 Sat by Pulse Oximetry (%) Intake & Output 05/25/17 05/26/17 05/27/17 05/28/17 07:59 07:59 07:59 07:59 Intake Total 150 450 210 Output Total 100 5 300 Balance 50 445 -90 nad no jvd rrr s1s2 no mrg bibasilar dullness, poor effort no jaundice diaphoresis pos dp pt no carotid bruits alert, not oriented. no le e/c/c abd nt nd pos bs CBC, BMP 05/27/17 06:30 05/27/17 06:30 Laboratory Tests 05/27/17 06:30 Magnesium 1.7 L tele: intermittent aflutter to the 150's. SR with atrial runs and frequent pvc 's. no episode of bradycardia. ECG's 05/20, 05/21: SVT/AFL present on some, nonsp ST-Ts--no acute changes (no ST elevation) ecg 05/18/17: afib with rvr, nl qtc, no ischemic changes echo 04/2017: nl lv/rv, mild mr echo 04/2017 repeat: nl lv/rv, mild-mod mr ct chest: b/l effs, ILD a/p: 81 f hx MM, hld, here with sepsis and new onset afib. 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 source (PNA?)--ID notes appreciated -cont abx per ID -chemo per onc -prior bp's borderline, mostly 90s-100s, off pressors--dropped to 80s 05/21 during HD. Recently bp's improved 110's-120's. -pancytopenic--per onc. new onset afib, brief PSVT runs: -occurred here in setting of sepsis. chadsvasc is 3, --> pt with chronic anemia , d/w heme and cleared for AC -05/21 during HD had episodes of AFL with 2:1 > variable conduction, rapid HRs, with low BPs in 80s. -if continues to occur during HD, it will make successful dialysis very difficult. -has remained in sinus since. d/w'd dtr's option of adding amio for SVT/AFL suppression, but they prefer holding off unless recurrent episodes, since they are in general concerned regarding medication toxicity potential. -05/22: family declining heparin b/c of bleeding thru skin on hands and concerns of risks of medication. Dr. Gibson explained to them that there is an uncertain degree of risk of embolism/CVA with brief PAFL, though it is felt to be statistically very low with brief duration as with her. they verbalize understanding and preference to take that risk in order to avoid risk of bleeding. heparin stopped. -05/23: still with intermittent runs of svt. -05/24-: no sig svt overnight -05/26: brief svt this AM when being cleaned, cont tele for now -05/27: still with frequent intermittent SVT, HR's to 150's in addition to frequent atrial runs and PVC's when in SR. no significant conversion pauses. -- > In setting of k 3.5 and mg 1.7. s/p HD today. Discussed with renal --> lyte repletion tonight. Discussed with family. They wish to avoid additional medications. Monitor for improvement once lytes are repleted. acute hypoxic resp failure, acute diast chf: -05/20: pt with signif tachypnea, using resp muscles, + audible wheezing. cxr with incr effusions and chf pattern. s/p lasix 40 ivp x1 -05/21: renal fxn worsening significantly (bun/creat 101/5.7), K 6.6. CXR much improved. plan per dr bateman d/w family is to begin HD today (shiley catheter access placed this am). defer lasix -05/23: sob continues to improve. s/p HD today. volume status per renal. -05/24-: volume managment/hd per renal aj: -? sepsis ATN -required initiation of HD here
[2017-05-27 19:51] LABS: ANION GAP 7 (8-16); BLOOD UREA NITROGEN 19 mg/dL (7-18); CALCIUM 7.1 mg/dL (8.5-10.1); CHLORIDE 102 mmol/L (98-107); CO2 32 mmol/L (21-32); CREATININE 1.5 mg/dL (0.55-1.02); GLUCOSE,RANDOM 131 mg/dL (74-106); MAGNESIUM 1.7 mg/dL (1.8-2.4); POTASSIUM 3.4 mmol/L (3.5-5.1); SODIUM 141 mmol/L (136-145)
[2017-05-28] MEDS ORDERED: MAGNESIUM OXIDE 400 MG TABLET (FP) PO ONE ×2 (00:02→01:00)
[2017-05-28] MEDS: POTASSIUM CHLORIDE TABS 20 MEQ TABLET.ER (FP) PO SCH ×3 (00:52→22:55)
[2017-05-28] MEDS: IPRATROPIUM BR 0.02% 0.5 MG/2.5 ML VIAL.NEB. NEB SCH ×4 (05:56→23:10)
[2017-05-28] MEDS ORDERED: PT OWN MED DRAWER 7, Y5N ONE (10:14)
[2017-05-28] MEDS: methylPREDNISolone NA SUCC 40 MG/1 ML VIAL IVPUSH SCH ×2 (10:25→22:54)
[2017-05-28] MEDS: PANTOPRAZOLE 40 MG TABLET (FP) PO SCH (10:25)
--- NOTE | 2017-05-28 12:32 | PN ---
Progress Note, Physician Chief Complaint: tolerated dilaysis yesterday without incident. Farrar placed yesterday and 1200ml noted in overall output yesterday. Patient appears comfortable currently , not very verbal, daughter feeding her breakfast. - Current Medication List Current Medications: Active Medications Fentanyl (Sublimaze Injection -) 25 mcg IVPUSH [id number] PRN PRN Reason: PAIN Ipratropium [place] (Atrovent 0.02% Nebulizer -) 1 amp NEB QIDR [facility] Last Admin: 05/28/17 05:56 Dose: 1 amp Methylprednisolone Sodium Succinate (Solu-Medrol -) 20 mg IVPUSH BID [facility] Last Admin: 05/28/17 10:25 Dose: 20 mg Metoprolol Tartrate (Lopressor Injection -) 5 mg IVPUSH Q1H PRN PRN Reason: TACHYCARDIA Ondansetron HCl (Zofran Injection) 4 mg IVPUSH Q6H PRN PRN Reason: NAUSEA AND/OR VOMITING Pantoprazole Sodium (Protonix -) 40 mg PO DAILY [facility] Last Admin: 05/28/17 10:25 Dose: 40 mg Potassium Chloride (K-Dur -) 20 meq PO BID [facility] Last Admin: 05/28/17 10:25 Dose: Not Given - Objective Vital Signs: Vital Signs Temperature 97.9 F 05/28/17 09:00 Pulse Rate 89 05/28/17 09:00 Respiratory Rate 19 05/28/17 09:00 Blood Pressure 112/68 05/28/17 09:00 O2 Sat by Pulse Oximetry (%) 95 05/27/17 21:00 Constitutional: Yes: No Distress, Calm Cardiovascular: Yes: Regular Rate and Rhythm, S1, S2. No: Murmur Respiratory: Yes: Regular, Diminished (bases) Gastrointestinal: Yes: Normal Bowel Sounds, Soft. No: Distention, Tenderness Genitourinary: Yes: Farrar Present (with light yellow urine) Extremities: Yes: Other (catheter in right chest) Edema: No Labs: CBC, BMP 05/27/17 06:30 05/27/17 19:10 INR, PTT INR 1.09 (0.82-1.09) 05/18/17 01:17 Assessment/Plan Current Active Problems Acute respiratory failure (Acute) Atrial fibrillation with RVR (Acute) ESRD (end stage renal disease) (Acute) Fever and neutropenia (Acute) Hyperkalemia, diminished renal excretion (Acute) Hyponatremia (Acute) Multiple myeloma (Acute) Sepsis (Acute) Sepsis affecting skin (Acute) Septic shock (Acute) Severe sepsis (Acute) -follow urine output (kidneys recovering?), follow renal function (next bloodwork scheduled for tomorrow)
--- NOTE | 2017-05-28 14:13 | PN ---
Progress Note (short form) - Note Progress Note: esrd s/p hd yesterday hypokalemia hypomagnesemia afib Current Medications Fentanyl (Sublimaze Injection -) 25 mcg IVPUSH [id number] PRN PRN Reason: PAIN Ipratropium [place] (Atrovent 0.02% Nebulizer -) 1 amp NEB QIDR [facility] Last Admin: 05/28/17 12:33 Dose: Not Given Methylprednisolone Sodium Succinate (Solu-Medrol -) 20 mg IVPUSH BID [facility] Last Admin: 05/28/17 10:25 Dose: 20 mg Metoprolol Tartrate (Lopressor Injection -) 5 mg IVPUSH Q1H PRN PRN Reason: TACHYCARDIA Ondansetron HCl (Zofran Injection) 4 mg IVPUSH Q6H PRN PRN Reason: NAUSEA AND/OR VOMITING Pantoprazole Sodium (Protonix -) 40 mg PO DAILY [facility] Last Admin: 05/28/17 10:25 Dose: 40 mg Potassium Chloride (K-Dur -) 20 meq PO BID [facility] Last Admin: 05/28/17 10:25 Dose: Not Given Last Vital Signs Temp Pulse Resp BP Pulse Ox 97.9 F 89 19 112/68 96 05/28/17 09:00 05/28/17 09:00 05/28/17 09:00 05/28/17 09:00 05/28/17 09:00 awake in nad lungs clear heart irr irr abd soft ext no edema CBC, BMP 05/27/17 06:30 05/27/17 19:10 IMP- s/p k replacement po mag replacement po esrd no fluid overload afib rate controlled Plan- for hd on monday started on dialysis
--- NOTE | 2017-05-28 16:54 | PN ---
Progress Note (short form) - Note Progress Note: CC: afib s: awake, confused, appears comfortable, denies discomfort. no overnight events Current Medications Fentanyl (Sublimaze Injection -) 25 mcg IVPUSH [id number] PRN PRN Reason: PAIN Ipratropium [place] (Atrovent 0.02% Nebulizer -) 1 amp NEB QIDR [facility] Last Admin: 05/28/17 12:33 Dose: Not Given Methylprednisolone Sodium Succinate (Solu-Medrol -) 20 mg IVPUSH BID [facility] Last Admin: 05/28/17 10:25 Dose: 20 mg Metoprolol Tartrate (Lopressor Injection -) 5 mg IVPUSH Q1H PRN PRN Reason: TACHYCARDIA Ondansetron HCl (Zofran Injection) 4 mg IVPUSH Q6H PRN PRN Reason: NAUSEA AND/OR VOMITING Pantoprazole Sodium (Protonix -) 40 mg PO DAILY [facility] Last Admin: 05/28/17 10:25 Dose: 40 mg Potassium Chloride (K-Dur -) 20 meq PO BID [facility] Last Admin: 05/28/17 10:25 Dose: Not Given Vital Signs - 24 hr 05/27/17 05/27/17 05/27/17 17:00 17:30 17:40 Temperature Pulse Rate 107 H 101 H 98 H Respiratory 18 18 18 Rate Blood Pressure 106/68 101/64 113/66 O2 Sat by Pulse Oximetry (%) 05/27/17 05/27/17 05/28/17 18:40 21:00 03:00 Temperature 98.1 F 97.9 F Pulse Rate 90 88 Respiratory 20 20 20 Rate Blood Pressure 126/63 118/50 O2 Sat by Pulse 95 Oximetry (%) 05/28/17 05/28/17 05/28/17 05:57 09:00 13:10 Temperature 97.9 F 97.9 F 97.5 F L Pulse Rate 78 89 85 Respiratory 20 19 20 Rate Blood Pressure 122/76 112/68 120/65 O2 Sat by Pulse 96 Oximetry (%) Intake & Output 05/26/17 05/27/17 05/28/17 05/29/17 07:59 07:59 07:59 07:59 Intake Total 450 210 130 Output Total 5 300 1300 Balance nad no jvd rrr s1s2 no mrg bibasilar dullness, poor effort no jaundice diaphoresis pos dp pt no carotid bruits alert, not oriented. no le e/c/c abd nt nd pos bs no CBC, BMP tele: intermittent aflutter to the 150's (decreased frequency). SR with atrial runs and frequent pvc's. ECG's 05/20, 05/21: SVT/AFL present on some, nonsp ST-Ts--no acute changes (no ST elevation) ecg 05/18/17: afib with rvr, nl qtc, no ischemic changes echo 04/2017: nl lv/rv, mild mr echo 04/2017 repeat: nl lv/rv, mild-mod mr ct chest: b/l effs, ILD a/p: 81 f hx MM, hld, here with sepsis and new onset afib. 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 source (PNA?)--ID notes appreciated -cont abx per ID -chemo per onc -prior bp's borderline, mostly 90s-100s, off pressors--dropped to 80s 05/21 during HD. Recently bp's improved 110's-120's. -pancytopenic--per onc. new onset afib, brief PSVT runs: -occurred here in setting of sepsis. chadsvasc is 3, --> pt with chronic anemia , d/w heme and cleared for AC -05/21 during HD had episodes of AFL with 2:1 > variable conduction, rapid HRs, with low BPs in 80s. -if continues to occur during HD, it will make successful dialysis very difficult. -has remained in sinus since. d/w'd dtr's option of adding amio for SVT/AFL suppression, but they prefer holding off unless recurrent episodes, since they are in general concerned regarding medication toxicity potential. -05/22: family declining heparin b/c of bleeding thru skin on hands and concerns of risks of medication. Dr. Gibson explained to them that there is an uncertain degree of risk of embolism/CVA with brief PAFL, though it is felt to be statistically very low with brief duration as with her. they verbalize understanding and preference to take that risk in order to avoid risk of bleeding. heparin stopped. -05/23: still with intermittent runs of svt. -05/24-28: no sig svt overnight -05/26: brief svt this AM when being cleaned, cont tele for now -05/27: still with frequent intermittent SVT, HR's to 150's in addition to frequent atrial runs and PVC's when in SR. no significant conversion pauses. -- > In setting of k 3.5 and mg 1.7. s/p HD today. Discussed with renal --> lyte repletion tonight. Discussed with family. They wish to avoid additional medications. Monitor for improvement once lytes are repleted. - 05/28: Mild improvement in frequency of aflutter, still with frequent ectopy when in SR. s/p lyte repletion last night. Ongoing mgm't of lytes per renal. Family wishes to defer beta enmanuel for now since patient remains comfortable/ asx. acute hypoxic resp failure, acute diast chf: -05/20: pt with signif tachypnea, using resp muscles, + audible wheezing. cxr with incr effusions and chf pattern. s/p lasix 40 ivp x1 -05/21: renal fxn worsening significantly (bun/creat 101/5.7), K 6.6. CXR much improved. plan per dr bateman d/w family is to begin HD today (shiley catheter access placed this am). defer lasix -05/23: sob continues to improve. s/p HD today. -05/24-: sx's improved. volume managment/hd per renal aj: -? sepsis ATN -required initiation of HD here
[2017-05-29] MEDS: IPRATROPIUM BR 0.02% 0.5 MG/2.5 ML VIAL.NEB. NEB SCH ×3 (06:25→23:21)
[2017-05-29 08:35] LABS: HEMATOCRIT 29.9 % (32.4-45.2); HEMOGLOBIN 9.4 GM/dL (10.7-15.3); MCH 28.6 pg (25.7-33.7); MCHC 31.6 g/dl (32.0-36.0); MEAN CELL VOLUME 90.6 fl (80-96); MEAN PLT VOLUME 8.1 fl (7.5-11.1); PLATELET COUNT 106 K/MM3 (134-434); RDW 18.2 % (11.6-15.6)
[2017-05-29] MEDS: POTASSIUM CHLORIDE TABS 20 MEQ TABLET.ER (FP) PO SCH (09:34)
[2017-05-29] MEDS: methylPREDNISolone NA SUCC 40 MG/1 ML VIAL IVPUSH SCH ×2 (09:34→21:16)
[2017-05-29] MEDS: PANTOPRAZOLE 40 MG TABLET (FP) PO SCH ×2 (09:34→09:37)
[2017-05-29 09:46] LABS: ALBUMIN 2.3 g/dl (3.4-5.0); ANION GAP 6 (8-16); BLOOD UREA NITROGEN 33 mg/dL (7-18); CHLORIDE 105 mmol/L (98-107); CO2 32 mmol/L (21-32); CREATININE 2.5 mg/dL (0.55-1.02); GLUCOSE,RANDOM 78 mg/dL (74-106); MAGNESIUM 1.7 mg/dL (1.8-2.4); PHOSPHOROUS 3.1 mg/dL (2.5-4.9); POTASSIUM 4.2 mmol/L (3.5-5.1); SGOT/AST 27 U/L (15-37); SGPT/ALT 14 U/L (12-78); SODIUM 143 mmol/L (136-145)
[2017-05-29 09:48] LABS: ALK PHOS 55 U/L (45-117); BILIRUBIN,TOTAL 0.6 mg/dL (0.2-1.0); TOT PROT 5.4 g/dl (6.4-8.2)
[2017-05-29 09:54] LABS: CALCIUM 6.8 mg/dL (8.5-10.1)
--- NOTE | 2017-05-29 11:22 | PN ---
Progress Note, Physician History of Present Illness: Feeling OK this morning, voices no complaints. Continues to have increased urine output (1200 ml yesterday, 1200 ml the day prior) - Current Medication List Current Medications: Active Medications Fentanyl (Sublimaze Injection -) 25 mcg IVPUSH [id number] PRN PRN Reason: PAIN Ipratropium [place] (Atrovent 0.02% Nebulizer -) 1 amp NEB QIDR [facility] Last Admin: 05/29/17 06:25 Dose: 1 amp Methylprednisolone Sodium Succinate (Solu-Medrol -) 20 mg IVPUSH BID [facility] Last Admin: 05/29/17 09:34 Dose: 20 mg Metoprolol Tartrate (Lopressor Injection -) 5 mg IVPUSH Q1H PRN PRN Reason: TACHYCARDIA Ondansetron HCl (Zofran Injection) 4 mg IVPUSH Q6H PRN PRN Reason: NAUSEA AND/OR VOMITING Pantoprazole Sodium (Protonix -) 40 mg PO DAILY [facility] Last Admin: 05/29/17 09:37 Dose: 40 mg Potassium Chloride (K-Dur -) 20 meq PO BID [facility] Last Admin: 05/29/17 09:34 Dose: 20 meq - Objective Vital Signs: Vital Signs Temperature 97.3 F L 05/29/17 06:00 Pulse Rate 77 05/29/17 06:00 Respiratory Rate 18 05/29/17 06:00 Blood Pressure 109/53 05/29/17 06:00 O2 Sat by Pulse Oximetry (%) 97 05/28/17 21:00 Constitutional: Yes: No Distress, Calm Cardiovascular: Yes: Regular Rate and Rhythm, S1, S2. No: Murmur Respiratory: Yes: Regular, CTA Bilaterally Gastrointestinal: Yes: Normal Bowel Sounds, Soft. No: Distention, Tenderness Edema: LLE: Trace, RLE: Trace Neurological: Yes: Alert Labs: CBC, BMP 05/29/17 08:20 05/29/17 08:20 INR, PTT INR 1.09 (0.82-1.09) 05/18/17 01:17 Assessment/Plan Current Active Problems Acute respiratory failure (Acute) Atrial fibrillation with RVR (Acute) ESRD (end stage renal disease) (Acute) Fever and neutropenia (Acute) Hyperkalemia, diminished renal excretion (Acute) Hyponatremia (Acute) Multiple myeloma (Acute) Sepsis (Acute) Sepsis affecting skin (Acute) Septic shock (Acute) Severe sepsis (Acute) -renal follow-up (due for dialysis today?) -will need STR following hospitalization
--- NOTE | 2017-05-29 11:42 | PN ---
Progress Note (short form) - Note Progress Note: s: awake, confused, appears comfortable, no overnight events Current Medications Generic Name Dose Route Start Last Admin Trade Name Freq PRN Reason Stop Dose Admin Fentanyl 25 mcg 05/25/17 13:48 Sublimaze Injection - IVPUSH [id number] PRN PAIN Ipratropium [place] 1 amp 05/25/17 18:00 05/29/17 06:25 Atrovent 0.02% Nebulizer - NEB 1 amp QIDR [facility] Administration Methylprednisolone Sodium Succinate 20 mg 05/25/17 22:00 05/29/17 09:34 Solu-Medrol - IVPUSH 20 mg BID [facility] Administration Metoprolol Tartrate 5 mg 05/25/17 14:02 Lopressor Injection - IVPUSH Q1H PRN TACHYCARDIA Ondansetron HCl 4 mg 05/25/17 13:48 Zofran Injection IVPUSH Q6H PRN NAUSEA AND/OR VOMITING Pantoprazole Sodium 40 mg 05/26/17 10:00 05/29/17 09:37 Protonix - PO 40 mg DAILY [facility] Administration Potassium Chloride 20 meq 05/27/17 23:30 05/29/17 09:34 K-Dur - PO 20 meq BID [facility] Administration Vital Signs Period Temp Pulse Resp BP Sys/[place] Pulse Ox Last 24 Hr 97.3 F-97.9 F 64-89 18-20 109-123/53-69 97 nad no jvd rrr s1s2 no mrg cta bl no jaundice diaphoresis pos dp pt no carotid bruits no le e/c/c abd nt nd pos bs CBC, BMP 05/29/17 08:20 05/29/17 08:20 tele: sr, pacs, brief episodes of svt echo 02/2017: nl lv/rv, mild mr/tr, nl rvsp echo 04/2017: nl lv/rv, mild mr echo 04/2017 repeat: nl lv/rv, mild-mod mr ct chest: b/l effs, ILD a/p: 81 f hx MM, hld, here with sepsis and new onset afib. 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 source (PNA?)--ID notes appreciated -cont abx per ID -chemo per onc -prior bp's borderline, mostly 90s-100s, off pressors--dropped to 80s 05/21 during HD. Recently bp's improved 110's-120's. -pancytopenic--per onc. new onset afib, brief PSVT runs: -occurred here in setting of sepsis. chadsvasc is 3, --> pt with chronic anemia , d/w heme and cleared for AC -05/21 during HD had episodes of AFL with 2:1 > variable conduction, rapid HRs, with low BPs in 80s. -if continues to occur during HD, it will make successful dialysis very difficult. -has remained in sinus since. d/w'd dtr's option of adding amio for SVT/AFL suppression, but they prefer holding off unless recurrent episodes, since they are in general concerned regarding medication toxicity potential. -05/22: family declining heparin b/c of bleeding thru skin on hands and concerns of risks of medication. Dr. Gibson explained to them that there is an uncertain degree of risk of embolism/CVA with brief PAFL, though it is felt to be statistically very low with brief duration as with her. they verbalize understanding and preference to take that risk in order to avoid risk of bleeding. heparin stopped. -05/23: still with intermittent runs of svt. -05/24-: no sig svt overnight -05/26: brief svt this AM when being cleaned, cont tele for now -05/27: still with frequent intermittent SVT, HR's to 150's in addition to frequent atrial runs and PVC's when in SR. no significant conversion pauses. -- > In setting of k 3.5 and mg 1.7. s/p HD today. Discussed with renal --> lyte repletion tonight. Discussed with family. They wish to avoid additional medications. Monitor for improvement once lytes are repleted. - 05/28-05/29: Less svt/aflutter episodes. Family wishes to defer beta enmanuel for now since patient remains comfortable/asx. acute hypoxic resp failure, acute diast chf: -05/20: pt with signif tachypnea, using resp muscles, + audible wheezing. cxr with incr effusions and chf pattern. s/p lasix 40 ivp x1 -05/21: renal fxn worsening significantly (bun/creat 101/5.7), K 6.6. CXR much improved. plan per dr bateman d/w family is to begin HD today (shiley catheter access placed this am). defer lasix -05/23: sob continues to improve. s/p HD today. -05/24-05/29: sx's improved. volume managment/hd per renal aj: -? sepsis ATN -required initiation of HD here
--- NOTE | 2017-05-29 14:41 | PN ---
Progress Note, Physician History of Present Illness: Pt seen and examined at bedside. She is awake but remains confused. Her PO intake remains poor. - Current Medication List Current Medications: Active Medications Fentanyl (Sublimaze Injection -) 25 mcg IVPUSH [id number] PRN PRN Reason: PAIN Ipratropium [place] (Atrovent 0.02% Nebulizer -) 1 amp NEB QIDR [facility] Last Admin: 05/29/17 13:00 Dose: Not Given Methylprednisolone Sodium Succinate (Solu-Medrol -) 20 mg IVPUSH BID [facility] Last Admin: 05/29/17 09:34 Dose: 20 mg Metoprolol Tartrate (Lopressor Injection -) 5 mg IVPUSH Q1H PRN PRN Reason: TACHYCARDIA Ondansetron HCl (Zofran Injection) 4 mg IVPUSH Q6H PRN PRN Reason: NAUSEA AND/OR VOMITING Pantoprazole Sodium (Protonix -) 40 mg PO DAILY [facility] Last Admin: 05/29/17 09:37 Dose: 40 mg Potassium Chloride (K-Dur -) 20 meq PO BID [facility] Last Admin: 05/29/17 09:34 Dose: 20 meq - Objective Vital Signs: Vital Signs Temperature 97.6 F 05/29/17 10:00 Pulse Rate 104 H 05/29/17 10:00 Respiratory Rate 18 05/29/17 10:00 Blood Pressure 114/66 05/29/17 10:00 O2 Sat by Pulse Oximetry (%) 97 05/29/17 10:00 Constitutional: Yes: Calm Eyes: Yes: Conjunctiva Clear HENT: Yes: Atraumatic Cardiovascular: Yes: S1, S2 Respiratory: Yes: CTA Bilaterally Gastrointestinal: Yes: Soft Genitourinary: Yes: [place] Present Musculoskeletal: Yes: Muscle Weakness Edema: Yes Edema: LLE: 1+, RLE: 1+ Neurological: Yes: Confusion Labs: CBC, BMP 05/29/17 08:20 05/29/17 08:20 INR, PTT INR 1.09 (0.82-1.09) 05/18/17 01:17 Problem List - Problems (1) Atrial fibrillation with RVR Code(s): I48.91 - UNSPECIFIED ATRIAL FIBRILLATION (2) Fever and neutropenia Code(s): D70.9 - NEUTROPENIA, UNSPECIFIED; R50.81 - FEVER PRESENTING WITH CONDITIONS CLASSIFIED ELSEWHERE (3) Hyperkalemia, diminished renal excretion Code(s): E87.5 - HYPERKALEMIA (4) Hyponatremia Code(s): E87.1 - HYPO-OSMOLALITY AND HYPONATREMIA (5) Multiple myeloma Code(s): C90.00 - MULTIPLE MYELOMA NOT HAVING ACHIEVED REMISSION (6) Sepsis Code(s): A41.9 - SEPSIS, UNSPECIFIED ORGANISM (7) Multiple myeloma Code(s): C90.00 - MULTIPLE MYELOMA NOT HAVING ACHIEVED REMISSION Qualifiers: Assessment/Plan Current Medications Generic Name Dose Route Start Last Admin Trade Name Freq PRN Reason Stop Dose Admin Fentanyl 25 mcg 05/25/17 13:48 Sublimaze Injection - IVPUSH [id number] PRN PAIN Ipratropium [place] 1 amp 05/25/17 18:00 05/29/17 13:00 Atrovent 0.02% Nebulizer - NEB Not Given QIDR [facility] Methylprednisolone Sodium Succinate 20 mg 05/25/17 22:00 05/29/17 09:34 Solu-Medrol - IVPUSH 20 mg BID [facility] Administration Metoprolol Tartrate 5 mg 05/25/17 14:02 Lopressor Injection - IVPUSH Q1H PRN TACHYCARDIA Ondansetron HCl 4 mg 05/25/17 13:48 Zofran Injection IVPUSH Q6H PRN NAUSEA AND/OR VOMITING Pantoprazole Sodium 40 mg 05/26/17 10:00 05/29/17 09:37 Protonix - PO 40 mg DAILY [facility] Administration Potassium Chloride 20 meq 05/27/17 23:30 05/29/17 09:34 K-Dur - PO 20 meq BID [facility] Administration Impression 1. SHANIA 2. sepsis 3. anemia 4. CKD/ESRD 5. multiple myeloma 6. malnutrition 7. proteinuria 8. possible hepatocellular disease seen on ultrasound 9. interstitial lung disease 10. hyponatremia 11. hyperkalemia Plan - HD in am - cont current meds - encourage PO intake - cont pt/rehab - please stop potassium supplements - epogen for anemia - abx per ID - will follow Dr Soto
[2017-05-29] MEDS: MAGNESIUM OXIDE 400 MG TABLET (FP) PO SCH ×2 (15:30→21:17)
[2017-05-30] MEDS: IPRATROPIUM BR 0.02% 0.5 MG/2.5 ML VIAL.NEB. NEB SCH ×4 (06:33→23:35)
[2017-05-30 07:38] LABS: HEMATOCRIT 25.6 % (32.4-45.2); HEMOGLOBIN 8.2 GM/dL (10.7-15.3); MCH 28.7 pg (25.7-33.7); MCHC 31.9 g/dl (32.0-36.0); MEAN CELL VOLUME 90.1 fl (80-96); MEAN PLT VOLUME 8.1 fl (7.5-11.1); PLATELET COUNT 114 K/MM3 (134-434); RBC 2.84 M/mm3 (3.60-5.2); RDW 17.9 % (11.6-15.6); WHITE BLOOD COUNT 3.1 K/mm3 (4.0-10.0)
[2017-05-30 08:17] LABS: ALBUMIN 2.3 g/dl (3.4-5.0); ANION GAP 8 (8-16); BLOOD UREA NITROGEN 40 mg/dL (7-18); CALCIUM 7.1 mg/dL (8.5-10.1); CHLORIDE 107 mmol/L (98-107); CO2 31 mmol/L (21-32); GLUCOSE,RANDOM 77 mg/dL (74-106); POTASSIUM 4.6 mmol/L (3.5-5.1); SGOT/AST 27 U/L (15-37); SGPT/ALT 14 U/L (12-78); SODIUM 146 mmol/L (136-145)
[2017-05-30 08:19] LABS: ALK PHOS 54 U/L (45-117); BILIRUBIN,TOTAL 0.6 mg/dL (0.2-1.0); CREATININE 2.6 mg/dL (0.55-1.02); TOT PROT 5.3 g/dl (6.4-8.2)
[2017-05-30 09:24] LABS: ACANTHOCYTES 0; ANISOCYTOSIS 0; HELMET CELLS 0; HOWELL-JOLLY BODIES 0; MACROCYTOSIS 0; OVALOCYTE 0; PLATELET ESTIMATE DECREASED; SICKELED CELLS 0; TARGET CELLS 0; TEAR DROP CELLS 0; TOXIC GRANULATION 0
[2017-05-30] MEDS ORDERED: EPOETIN ALFA 3,000 UNIT/1 ML ML IVPUSH ONE (10:30)
[2017-05-30 11:35] LABS: MAGNESIUM 1.7 mg/dL (1.8-2.4)
--- NOTE | 2017-05-30 12:02 | PN ---
Progress Note, Physician Chief Complaint: Patient says she does not know how she feel but denies cp, sob, n/v. - Current Medication List Current Medications: Active Medications Fentanyl (Sublimaze Injection -) 25 mcg IVPUSH [id number] PRN PRN Reason: PAIN Ipratropium [place] (Atrovent 0.02% Nebulizer -) 1 amp NEB QIDR [facility] Last Admin: 05/30/17 11:20 Dose: Not Given Magnesium Oxide (Mag-Ox -) 400 mg PO BID [facility] Stop: 05/31/17 10:01 Last Admin: 05/29/17 21:17 Dose: 400 mg Metoprolol Tartrate (Lopressor Injection -) 5 mg IVPUSH Q1H PRN PRN Reason: TACHYCARDIA Ondansetron HCl (Zofran Injection) 4 mg IVPUSH Q6H PRN PRN Reason: NAUSEA AND/OR VOMITING Pantoprazole Sodium (Protonix -) 40 mg PO DAILY [facility] Last Admin: 05/29/17 09:37 Dose: 40 mg Prednisone (Deltasone -) 20 mg PO DAILY [facility] - Objective Vital Signs: Vital Signs Temperature 36.5 C 05/30/17 05:00 Pulse Rate 79 05/30/17 05:00 Respiratory Rate 18 05/30/17 05:00 Blood Pressure 117/68 05/30/17 05:00 O2 Sat by Pulse Oximetry (%) 99 05/29/17 21:00 Constitutional: Yes: No Distress, Calm, Obese Cardiovascular: Yes: Regular Rate and Rhythm. No: Gallop, Murmur, Rub Respiratory: Yes: Regular, CTA Bilaterally. No: Rales, Rhonchi, Wheezes Gastrointestinal: Yes: Normal Bowel Sounds, Soft. No: Distention, Tenderness Extremities: Yes: WNL Edema: No Labs: CBC, BMP 05/30/17 06:45 05/30/17 06:45 INR, PTT INR 1.09 (0.82-1.09) 05/18/17 01:17 Problem List - Problems (1) Septic shock Code(s): A41.9 - SEPSIS, UNSPECIFIED ORGANISM; R65.21 - SEVERE SEPSIS WITH SEPTIC SHOCK (2) Fever and neutropenia Code(s): D70.9 - NEUTROPENIA, UNSPECIFIED; R50.81 - FEVER PRESENTING WITH CONDITIONS CLASSIFIED ELSEWHERE (3) Atrial fibrillation with RVR Code(s): I48.91 - UNSPECIFIED ATRIAL FIBRILLATION (4) Metabolic encephalopathy Code(s): G93.41 - METABOLIC ENCEPHALOPATHY (5) Hyponatremia Code(s): E87.1 - HYPO-OSMOLALITY AND HYPONATREMIA (6) Hypocalcemia Code(s): E83.51 - HYPOCALCEMIA (7) Multiple myeloma Code(s): C90.00 - MULTIPLE MYELOMA NOT HAVING ACHIEVED REMISSION (8) ESRD (end stage renal disease) Code(s): N18.6 - END STAGE RENAL DISEASE Assessment/Plan (1) Septic shock Assessment/Plan -resolved -cultures are negative -s/p full course of antibiotics Code(s): A41.9 - SEPSIS, UNSPECIFIED ORGANISM; R65.21 - SEVERE SEPSIS WITH SEPTIC SHOCK (2) Fever and neutropenia Assessment/Plan: -resolved -normal ANC Code(s): D70.9 - NEUTROPENIA, UNSPECIFIED; R50.81 - FEVER PRESENTING WITH CONDITIONS CLASSIFIED ELSEWHERE (3) Atrial fibrillation with RVR Assessment/Plan: -now in sinus rhythm -not requiring therapy Code(s): I48.91 - UNSPECIFIED ATRIAL FIBRILLATION (4) ESRD Assessment/Plan: -permacath placed -on HD -will need outpatient HD set up, expect needs SNF placement Code(s): N17.9 - ACUTE KIDNEY FAILURE, UNSPECIFIED (5) Metabolic encephalopathy Assessment/Plan: -secondary to ESRD -patient appears at baseline Code(s): G93.41 - METABOLIC ENCEPHALOPATHY (6) Hyponatremia Assessment/Plan: -resolved Code(s): E87.1 - HYPO-OSMOLALITY AND HYPONATREMIA (7) Hypocalcemia Assessment/Plan: -monitor, may need replacement Code(s): E83.51 - HYPOCALCEMIA (8) Multiple myeloma Assessment/Plan: -oncology following -patient now endstage -cannot tolerate chemotherapy secondary to multiple comorbidities Code(s): C90.00 - MULTIPLE MYELOMA NOT HAVING ACHIEVED REMISSION (9) Anemia -stable Dispo -pending placement
--- NOTE | 2017-05-30 13:32 | PN ---
Progress Note (short form) - Note Progress Note: CC: giovanny s: awake, confused, minimal verbal communication except to say that she doesn't want to eat. Minimal po intake today. Shortened dialysis session today due to difficulties with catheter. Appears comfortable, denies complaints. Current Medications Fentanyl (Sublimaze Injection -) 25 mcg IVPUSH [id number] PRN PRN Reason: PAIN Ipratropium [place] (Atrovent 0.02% Nebulizer -) 1 amp NEB QIDR [facility] Last Admin: 05/30/17 11:20 Dose: Not Given Magnesium Oxide (Mag-Ox -) 400 mg PO BID [facility] Stop: 05/31/17 10:01 Last Admin: 05/29/17 21:17 Dose: 400 mg Metoprolol Tartrate (Lopressor Injection -) 5 mg IVPUSH Q1H PRN PRN Reason: TACHYCARDIA Ondansetron HCl (Zofran Injection) 4 mg IVPUSH Q6H PRN PRN Reason: NAUSEA AND/OR VOMITING Pantoprazole Sodium (Protonix -) 40 mg PO DAILY [facility] Last Admin: 05/29/17 09:37 Dose: 40 mg Prednisone (Deltasone -) 20 mg PO DAILY [facility] Vital Signs - 24 hr 05/29/17 05/29/17 05/30/17 17:49 21:00 01:00 Temperature 99.3 F 98.2 F 97.8 F Pulse Rate 63 63 61 Respiratory 18 18 18 Rate Blood Pressure 127/64 122/65 137/73 O2 Sat by Pulse 99 Oximetry (%) 05/30/17 05/30/17 05:00 09:55 Temperature 97.7 F 98.6 F Pulse Rate 79 90 Respiratory 18 18 Rate Blood Pressure 117/68 102/60 O2 Sat by Pulse Oximetry (%) Intake & Output 05/28/17 05/29/17 05/30/17 05/31/17 07:59 07:59 07:59 07:59 Intake Total 130 10 Output Total 1600 800 400 Balance -1470 -800 -390 nad, calm no jvd, neck supple rrr s1s2 no mrg cta bl, poor effort no jaundice diaphoresis pos dp pt no carotid bruits no le e/c/c abd nt nd pos bs alert, not oriented. CBC, BMP 05/30/17 06:45 05/30/17 06:45 tele: sr, pacs, pvc's brief episodes of svt echo 02/2017: nl lv/rv, mild mr/tr, nl rvsp echo 04/2017: nl lv/rv, mild mr echo 04/2017 repeat: nl lv/rv, mild-mod mr ct chest: b/l effs, ILD a/p: 81 f hx MM, hld, here with sepsis and new onset afib. 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 source (PNA?)--ID notes appreciated -cont abx per ID -chemo per onc -prior bp's borderline, mostly 90s-100s, off pressors--dropped to 80s 05/21 during HD. Recently bp's improved 110's-120's. -pancytopenic--per onc. new onset afib, brief PSVT runs: -occurred here in setting of sepsis. chadsvasc is 3, --> pt with chronic anemia , d/w heme and cleared for AC -05/21 during HD had episodes of AFL with 2:1 > variable conduction, rapid HRs, with low BPs in 80s. -if continues to occur during HD, it will make successful dialysis very difficult. -has remained in sinus since. d/w'd dtr's option of adding amio for SVT/AFL suppression, but they prefer holding off unless recurrent episodes, since they are in general concerned regarding medication toxicity potential. -05/22: family declining heparin b/c of bleeding thru skin on hands and concerns of risks of medication. Dr. Gibson explained to them that there is an uncertain degree of risk of embolism/CVA with brief PAFL, though it is felt to be statistically very low with brief duration as with her. they verbalize understanding and preference to take that risk in order to avoid risk of bleeding. heparin stopped. -05/23: still with intermittent runs of svt. -05/24-: no sig svt overnight -05/26: brief svt this AM when being cleaned, cont tele for now -05/27: still with frequent intermittent SVT, HR's to 150's in addition to frequent atrial runs and PVC's when in SR. no significant conversion pauses. -- > In setting of k 3.5 and mg 1.7. s/p HD today. Discussed with renal --> lyte repletion tonight. Discussed with family. They wish to avoid additional medications. Monitor for improvement once lytes are repleted. - 05/28-05/30: Less svt/aflutter episodes. Family wishes to defer beta enmanuel for now since patient remains comfortable/asx --> ok to d/c telemetry. acute hypoxic resp failure, acute diast chf: -05/20: pt with signif tachypnea, using resp muscles, + audible wheezing. cxr with incr effusions and chf pattern. s/p lasix 40 ivp x1 -05/21: renal fxn worsening significantly (bun/creat 101/5.7), K 6.6. CXR much improved. plan per dr bateman d/w family is to begin HD today (shiley catheter access placed this am). defer lasix -05/23: sob continues to improve. s/p HD today. -05/24-05/30: sx's improved. volume managment/hd per renal aj: -? sepsis ATN -required initiation of HD here - HD continues, shortened session today due to problems with catheter. minimal po intake. hypernatremia, lyte repletion per renal. Ok to d/c telemetry.
[2017-05-30] MEDS: methylPREDNISolone NA SUCC 40 MG/1 ML VIAL IVPUSH SCH (13:40)
[2017-05-30] MEDS: MAGNESIUM OXIDE 400 MG TABLET (FP) PO SCH ×2 (14:40→21:00)
[2017-05-30] MEDS: predniSONE 20 MG TABLET (UD) PO SCH (14:40)
[2017-05-30] MEDS: PANTOPRAZOLE 40 MG TABLET (FP) PO SCH (14:40)
[2017-05-30 15:35] LABS: ANION GAP 7 (8-16); BLOOD UREA NITROGEN 24 mg/dL (7-18); CALCIUM 7.1 mg/dL (8.5-10.1); CHLORIDE 109 mmol/L (98-107); CO2 32 mmol/L (21-32); CREATININE 1.9 mg/dL (0.55-1.02); GLUCOSE,RANDOM 89 mg/dL (74-106); MAGNESIUM 1.8 mg/dL (1.8-2.4); POTASSIUM 4.2 mmol/L (3.5-5.1); SODIUM 148 mmol/L (136-145)
--- NOTE | 2017-05-30 16:52 | PN ---
Progress Note, Physician History of Present Illness: Pt seen and examined at bedside. She is not eating or drinking much. - Current Medication List Current Medications: Active Medications Fentanyl (Sublimaze Injection -) 25 mcg IVPUSH [id number] PRN PRN Reason: PAIN Ipratropium [place] (Atrovent 0.02% Nebulizer -) 1 amp NEB QIDR [facility] Last Admin: 05/30/17 11:20 Dose: Not Given Magnesium Oxide (Mag-Ox -) 400 mg PO BID [facility] Stop: 05/31/17 10:01 Last Admin: 05/30/17 14:40 Dose: Not Given Metoprolol Tartrate (Lopressor Injection -) 5 mg IVPUSH Q1H PRN PRN Reason: TACHYCARDIA Ondansetron HCl (Zofran Injection) 4 mg IVPUSH Q6H PRN PRN Reason: NAUSEA AND/OR VOMITING Pantoprazole Sodium (Protonix -) 40 mg PO DAILY [facility] Last Admin: 05/30/17 14:40 Dose: Not Given Prednisone (Deltasone -) 20 mg PO DAILY [facility] Last Admin: 05/30/17 14:40 Dose: Not Given - Objective Vital Signs: Vital Signs Temperature 98.6 F 05/30/17 09:55 Pulse Rate 90 05/30/17 13:00 Respiratory Rate 18 05/30/17 13:00 Blood Pressure 102/58 05/30/17 13:00 O2 Sat by Pulse Oximetry (%) 99 05/29/17 21:00 Constitutional: Yes: Calm Eyes: Yes: Conjunctiva Clear HENT: Yes: Atraumatic Cardiovascular: Yes: S1, S2 Respiratory: Yes: On Nasal O2 Gastrointestinal: Yes: Soft Genitourinary: Yes: [place] Present Musculoskeletal: Yes: Muscle Weakness Edema: Yes Neurological: Yes: Confusion Labs: CBC, BMP 05/30/17 06:45 05/30/17 13:42 INR, PTT INR 1.09 (0.82-1.09) 05/18/17 01:17 Problem List - Problems (1) Atrial fibrillation with RVR Code(s): I48.91 - UNSPECIFIED ATRIAL FIBRILLATION (2) Fever and neutropenia Code(s): D70.9 - NEUTROPENIA, UNSPECIFIED; R50.81 - FEVER PRESENTING WITH CONDITIONS CLASSIFIED ELSEWHERE (3) Hyperkalemia, diminished renal excretion Code(s): E87.5 - HYPERKALEMIA (4) Hyponatremia Code(s): E87.1 - HYPO-OSMOLALITY AND HYPONATREMIA (5) Multiple myeloma Code(s): C90.00 - MULTIPLE MYELOMA NOT HAVING ACHIEVED REMISSION (6) Sepsis Code(s): A41.9 - SEPSIS, UNSPECIFIED ORGANISM (7) Multiple myeloma Code(s): C90.00 - MULTIPLE MYELOMA NOT HAVING ACHIEVED REMISSION Qualifiers: Assessment/Plan Current Medications Generic Name Dose Route Start Last Admin Trade Name Freq PRN Reason Stop Dose Admin Fentanyl 25 mcg 05/25/17 13:48 Sublimaze Injection - IVPUSH [id number] PRN PAIN Ipratropium [place] 1 amp 05/25/17 18:00 05/30/17 11:20 Atrovent 0.02% Nebulizer - NEB Not Given QIDR [facility] Magnesium Oxide 400 mg 05/29/17 14:45 05/30/17 14:40 Mag-Ox - PO 05/31/17 10:01 Not Given BID [facility] Metoprolol Tartrate 5 mg 05/25/17 14:02 Lopressor Injection - IVPUSH Q1H PRN TACHYCARDIA Ondansetron HCl 4 mg 05/25/17 13:48 Zofran Injection IVPUSH Q6H PRN NAUSEA AND/OR VOMITING Pantoprazole Sodium 40 mg 05/26/17 10:00 05/30/17 14:40 Protonix - PO Not Given DAILY [facility] Prednisone 20 mg 05/30/17 12:15 05/30/17 14:40 Deltasone - PO Not Given DAILY [facility] Impression 1. SHANIA 2. sepsis 3. anemia 4. CKD/ESRD 5. multiple myeloma 6. malnutrition 7. proteinuria 8. possible hepatocellular disease seen on ultrasound 9. interstitial lung disease 10. hyponatremia 11. hyperkalemia Plan - recall vascular for permacath as flow is low - HD today - repeat labs in am - follow iron studies - encourage PO intake - cont pt/rehab - epogen for anemia - abx per ID - will follow Dr oSto
--- NOTE | 2017-05-30 17:52 | PN ---
Progress Note (short form) - Note Progress Note: Chart reviewed in detail. Aide at bedside, informed that pt refusing PO intake. O/E: General: alert and awake HEENT: NCAT Cardiac: rrr Lungs: decreased breath sounds Abdomen: ND NT LE: +1 edema b/l LE. Last Vital Signs Temp Pulse Resp BP Pulse Ox 98.6 F 90 18 102/58 99 05/30/17 09:55 05/30/17 13:00 05/30/17 13:00 05/30/17 13:00 05/29/17 21:00 CBC, BMP 05/30/17 06:45 05/30/17 13:42 Current Medications Generic Name Dose Route Start Last Admin Trade Name Freq PRN Reason Stop Dose Admin Fentanyl 25 mcg 05/25/17 13:48 Sublimaze Injection - IVPUSH [id number] PRN PAIN Ipratropium [place] 1 amp 05/25/17 18:00 05/30/17 11:20 Atrovent 0.02% Nebulizer - NEB Not Given QIDR [facility] Magnesium Oxide 400 mg 05/29/17 14:45 05/30/17 14:40 Mag-Ox - PO 05/31/17 10:01 Not Given BID [facility] Metoprolol Tartrate 5 mg 05/25/17 14:02 Lopressor Injection - IVPUSH Q1H PRN TACHYCARDIA Ondansetron HCl 4 mg 05/25/17 13:48 Zofran Injection IVPUSH Q6H PRN NAUSEA AND/OR VOMITING Pantoprazole Sodium 40 mg 05/26/17 10:00 05/30/17 14:40 Protonix - PO Not Given DAILY [facility] Prednisone 20 mg 05/30/17 12:15 05/30/17 14:40 Deltasone - PO Not Given DAILY [facility] Patient with Multiple Myeloma not in CR, last treatment was in 03/2017. The new cytopenias likely from Myeloma. course complicated by worsening CKD now to ESRD. s/p completion of abx. counts improving. supportive transfusions as needed On HD/JACOB per renal protocol for ESRD now Hyer[place], Renal following f/u as an OP with us. Problem List - Problems (1) Atrial fibrillation with RVR Code(s): I48.91 - UNSPECIFIED ATRIAL FIBRILLATION (2) Fever and neutropenia Code(s): D70.9 - NEUTROPENIA, UNSPECIFIED; R50.81 - FEVER PRESENTING WITH CONDITIONS CLASSIFIED ELSEWHERE (3) Acute renal failure Code(s): N17.9 - ACUTE KIDNEY FAILURE, UNSPECIFIED (4) Multiple myeloma Code(s): C90.00 - MULTIPLE MYELOMA NOT HAVING ACHIEVED REMISSION
[2017-05-31] MEDS: IPRATROPIUM BR 0.02% 0.5 MG/2.5 ML VIAL.NEB. NEB SCH ×4 (06:40→23:51)
[2017-05-31 07:27] LABS: HEMATOCRIT 25.2 % (32.4-45.2); MCH 28.8 pg (25.7-33.7); MCHC 31.8 g/dl (32.0-36.0); MEAN CELL VOLUME 90.6 fl (80-96); MEAN PLT VOLUME 7.7 fl (7.5-11.1); PLATELET COUNT 114 K/MM3 (134-434); RBC 2.78 M/mm3 (3.60-5.2)
[2017-05-31 07:42] LABS: ANION GAP 7 (8-16); BLOOD UREA NITROGEN 27 mg/dL (7-18); CALCIUM 7.4 mg/dL (8.5-10.1); CHLORIDE 106 mmol/L (98-107); CO2 31 mmol/L (21-32); GLUCOSE,RANDOM 67 mg/dL (74-106); PHOSPHOROUS 2.2 mg/dL (2.5-4.9); SODIUM 144 mmol/L (136-145)
[2017-05-31 08:41] LABS: MAGNESIUM 1.6 mg/dL (1.8-2.4); POTASSIUM 4.1 mmol/L (3.5-5.1)
[2017-05-31] MEDS: MAGNESIUM OXIDE 400 MG TABLET (FP) PO SCH (09:22)
[2017-05-31] MEDS: predniSONE 20 MG TABLET (UD) PO SCH (09:22)
[2017-05-31] MEDS: PANTOPRAZOLE 40 MG TABLET (FP) PO SCH (09:26)
--- NOTE | 2017-05-31 10:47 | PN ---
Progress Note, Physician Chief Complaint: Ms Fuentes says she is afraid, but cannot tell me why. Very tearful on exam and cannot obtain further subjective - Current Medication List Current Medications: Active Medications Fentanyl (Sublimaze Injection -) 25 mcg IVPUSH [id number] PRN PRN Reason: PAIN Ipratropium [place] (Atrovent 0.02% Nebulizer -) 1 amp NEB QIDR [facility] Last Admin: 05/31/17 06:40 Dose: Not Given Metoprolol Tartrate (Lopressor Injection -) 5 mg IVPUSH Q1H PRN PRN Reason: TACHYCARDIA Ondansetron HCl (Zofran Injection) 4 mg IVPUSH Q6H PRN PRN Reason: NAUSEA AND/OR VOMITING Pantoprazole Sodium (Protonix -) 40 mg PO DAILY [facility] Last Admin: 05/31/17 09:26 Dose: Not Given Prednisone (Deltasone -) 20 mg PO DAILY [facility] Last Admin: 05/31/17 09:22 Dose: 20 mg - Objective Vital Signs: Vital Signs Temperature 36.9 C 05/31/17 05:00 Pulse Rate 85 05/31/17 05:00 Respiratory Rate 18 05/31/17 05:00 Blood Pressure 133/70 05/31/17 05:00 O2 Sat by Pulse Oximetry (%) 95 05/30/17 21:00 Constitutional: Yes: Anxious, Obese, Other (tearful) Cardiovascular: Yes: Regular Rate and Rhythm. No: Gallop, Murmur, Rub Respiratory: Yes: Regular, CTA Bilaterally, On Nasal O2. No: Rales, Rhonchi, Wheezes Gastrointestinal: Yes: Normal Bowel Sounds, Soft. No: Distention, Tenderness Extremities: Yes: WNL Edema: No Labs: CBC, BMP 05/31/17 06:30 05/31/17 06:30 INR, PTT INR 1.09 (0.82-1.09) 05/18/17 01:17 Problem List - Problems (1) Septic shock Code(s): A41.9 - SEPSIS, UNSPECIFIED ORGANISM; R65.21 - SEVERE SEPSIS WITH SEPTIC SHOCK (2) Fever and neutropenia Code(s): D70.9 - NEUTROPENIA, UNSPECIFIED; R50.81 - FEVER PRESENTING WITH CONDITIONS CLASSIFIED ELSEWHERE (3) Atrial fibrillation with RVR Code(s): I48.91 - UNSPECIFIED ATRIAL FIBRILLATION (4) Metabolic encephalopathy Code(s): G93.41 - METABOLIC ENCEPHALOPATHY (5) Hyponatremia Code(s): E87.1 - HYPO-OSMOLALITY AND HYPONATREMIA (6) Hypocalcemia Code(s): E83.51 - HYPOCALCEMIA (7) Multiple myeloma Code(s): C90.00 - MULTIPLE MYELOMA NOT HAVING ACHIEVED REMISSION (8) ESRD (end stage renal disease) Code(s): N18.6 - END STAGE RENAL DISEASE Assessment/Plan (1) Septic shock Assessment/Plan -resolved -cultures are negative -s/p full course of antibiotics Code(s): A41.9 - SEPSIS, UNSPECIFIED ORGANISM; R65.21 - SEVERE SEPSIS WITH SEPTIC SHOCK (2) Fever and neutropenia Assessment/Plan: -resolved -normal ANC Code(s): D70.9 - NEUTROPENIA, UNSPECIFIED; R50.81 - FEVER PRESENTING WITH CONDITIONS CLASSIFIED ELSEWHERE (3) Atrial fibrillation with RVR Assessment/Plan: -now in sinus rhythm -not requiring therapy Code(s): I48.91 - UNSPECIFIED ATRIAL FIBRILLATION (4) ESRD Assessment/Plan: -permacath placed -on HD -will need outpatient HD set up, expect needs SNF placement Code(s): N17.9 - ACUTE KIDNEY FAILURE, UNSPECIFIED (5) Metabolic encephalopathy Assessment/Plan: -secondary to ESRD -patient appears at baseline -with some anxiety and fear today, monitor Code(s): G93.41 - METABOLIC ENCEPHALOPATHY (6) Hyponatremia Assessment/Plan: -resolved Code(s): E87.1 - HYPO-OSMOLALITY AND HYPONATREMIA (7) Hypocalcemia Assessment/Plan: -monitor, may need replacement Code(s): E83.51 - HYPOCALCEMIA (8) Multiple myeloma Assessment/Plan: -oncology following -patient now endstage -cannot tolerate chemotherapy secondary to multiple comorbidities Code(s): C90.00 - MULTIPLE MYELOMA NOT HAVING ACHIEVED REMISSION (9) Anemia -stable Dispo -pending placement
--- NOTE | 2017-05-31 11:28 | PN ---
Progress Note (short form) - Note Progress Note: s: awake, confused, appears comfortable, no overnight events Current Medications Generic Name Dose Route Start Last Admin Trade Name Freq PRN Reason Stop Dose Admin Fentanyl 25 mcg 05/25/17 13:48 Sublimaze Injection - IVPUSH [id number] PRN PAIN Ipratropium [place] 1 amp 05/25/17 18:00 05/31/17 06:40 Atrovent 0.02% Nebulizer - NEB Not Given QIDR [facility] Metoprolol Tartrate 5 mg 05/25/17 14:02 Lopressor Injection - IVPUSH Q1H PRN TACHYCARDIA Ondansetron HCl 4 mg 05/25/17 13:48 Zofran Injection IVPUSH Q6H PRN NAUSEA AND/OR VOMITING Pantoprazole Sodium 40 mg 05/26/17 10:00 05/31/17 09:26 Protonix - PO Not Given DAILY [facility] Prednisone 20 mg 05/30/17 12:15 05/31/17 09:22 Deltasone - PO 20 mg DAILY [facility] Administration Vital Signs Period Temp Pulse Resp BP Sys/S[place] Pulse Ox Last 24 Hr 97.7 F-98.4 F 85-104 100-133/56-80 95 nad no jvd rrr s1s2 no mrg cta bl no jaundice diaphoresis pos dp pt no carotid bruits no le e/c/c abd nt nd pos bs CBC, BMP 05/31/17 06:30 05/31/17 06:30 tele: sr, pacs, no sig svt echo 02/2017: nl lv/rv, mild mr/tr, nl rvsp echo 04/2017: nl lv/rv, mild mr echo 04/2017 repeat: nl lv/rv, mild-mod mr ct chest: b/l effs, ILD a/p: 81 f hx MM, hld, here with sepsis and new onset afib. 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 source (PNA?)--ID notes appreciated -cont abx per ID -chemo per onc -prior bp's borderline, mostly 90s-100s, off pressors--dropped to 80s 05/21 during HD. Recently bp's improved 110's-120's. -pancytopenic--per onc. new onset afib, brief PSVT runs: -occurred here in setting of sepsis. chadsvasc is 3, --> pt with chronic anemia , d/w heme and cleared for AC -05/21 during HD had episodes of AFL with 2:1 > variable conduction, rapid HRs, with low BPs in 80s. -if continues to occur during HD, it will make successful dialysis very difficult. -has remained in sinus since. d/w'd dtr's option of adding amio for SVT/AFL suppression, but they prefer holding off unless recurrent episodes, since they are in general concerned regarding medication toxicity potential. -05/22: family declining heparin b/c of bleeding thru skin on hands and concerns of risks of medication. Dr. Gibson explained to them that there is an uncertain degree of risk of embolism/CVA with brief PAFL, though it is felt to be statistically very low with brief duration as with her. they verbalize understanding and preference to take that risk in order to avoid risk of bleeding. heparin stopped. -05/23: still with intermittent runs of svt. -05/24-: no sig svt overnight -05/26: brief svt this AM when being cleaned, cont tele for now -05/27: still with frequent intermittent SVT, HR's to 150's in addition to frequent atrial runs and PVC's when in SR. no significant conversion pauses. -- > In setting of k 3.5 and mg 1.7. s/p HD today. Discussed with renal --> lyte repletion tonight. Discussed with family. They wish to avoid additional medications. Monitor for improvement once lytes are repleted. - 05/28-05/31: Less svt/aflutter episodes. Family wishes to defer beta enmanuel for now since patient remains comfortable/asx --> ok to d/c telemetry. acute hypoxic resp failure, acute diast chf: -05/20: pt with signif tachypnea, using resp muscles, + audible wheezing. cxr with incr effusions and chf pattern. s/p lasix 40 ivp x1 -05/21: renal fxn worsening significantly (bun/creat 101/5.7), K 6.6. CXR much improved. plan per dr bateman d/w family is to begin HD today (shiley catheter access placed this am). defer lasix -05/23: sob continues to improve. s/p HD today. -05/24-05/31: sx's improved. volume managment/hd per renal aj: -? sepsis ATN -required initiation of HD here - HD continues, shortened session today due to problems with catheter. minimal po intake. hypernatremia, lyte repletion per renal. d/c telemetry.
[2017-05-31 11:42] LABS: ANISOCYTOSIS 2+; PLATELET ESTIMATE DECREASED
--- NOTE | 2017-05-31 15:04 | PN ---
Progress Note, Physician History of Present Illness: Pt seen and examined at bedside. She remains confused. - Current Medication List Current Medications: Active Medications Fentanyl (Sublimaze Injection -) 25 mcg IVPUSH [id number] PRN PRN Reason: PAIN Ipratropium [place] (Atrovent 0.02% Nebulizer -) 1 amp NEB QIDR [facility] Last Admin: 05/31/17 11:49 Dose: Not Given Metoprolol Tartrate (Lopressor Injection -) 5 mg IVPUSH Q1H PRN PRN Reason: TACHYCARDIA Ondansetron HCl (Zofran Injection) 4 mg IVPUSH Q6H PRN PRN Reason: NAUSEA AND/OR VOMITING Pantoprazole Sodium (Protonix -) 40 mg PO DAILY [facility] Last Admin: 05/31/17 09:26 Dose: Not Given Prednisone (Deltasone -) 20 mg PO DAILY [facility] Last Admin: 05/31/17 09:22 Dose: 20 mg - Objective Vital Signs: Vital Signs Temperature 98.4 F 05/31/17 09:00 Pulse Rate 86 05/31/17 09:00 Respiratory Rate 18 05/31/17 09:00 Blood Pressure 132/70 05/31/17 09:00 O2 Sat by Pulse Oximetry (%) 97 05/31/17 09:00 Constitutional: Yes: Anxious Eyes: Yes: Conjunctiva Clear HENT: Yes: Atraumatic Cardiovascular: Yes: S1, S2 Respiratory: Yes: CTA Bilaterally Gastrointestinal: Yes: Soft Genitourinary: Yes: Incontinence Musculoskeletal: Yes: Muscle Weakness Edema: Yes Edema: LLE: Trace, RLE: Trace Neurological: Yes: Confusion Labs: CBC, BMP 05/31/17 06:30 05/31/17 06:30 INR, PTT INR 1.09 (0.82-1.09) 05/18/17 01:17 Problem List - Problems (1) Atrial fibrillation with RVR Code(s): I48.91 - UNSPECIFIED ATRIAL FIBRILLATION (2) Fever and neutropenia Code(s): D70.9 - NEUTROPENIA, UNSPECIFIED; R50.81 - FEVER PRESENTING WITH CONDITIONS CLASSIFIED ELSEWHERE (3) Hyperkalemia, diminished renal excretion Code(s): E87.5 - HYPERKALEMIA (4) Hyponatremia Code(s): E87.1 - HYPO-OSMOLALITY AND HYPONATREMIA (5) Multiple myeloma Code(s): C90.00 - MULTIPLE MYELOMA NOT HAVING ACHIEVED REMISSION (6) Sepsis Code(s): A41.9 - SEPSIS, UNSPECIFIED ORGANISM (7) Multiple myeloma Code(s): C90.00 - MULTIPLE MYELOMA NOT HAVING ACHIEVED REMISSION Qualifiers: Assessment/Plan Current Medications Generic Name Dose Route Start Last Admin Trade Name Freq PRN Reason Stop Dose Admin Fentanyl 25 mcg 05/25/17 13:48 Sublimaze Injection - IVPUSH [id number] PRN PAIN Ipratropium [place] 1 amp 05/25/17 18:00 05/31/17 11:49 Atrovent 0.02% Nebulizer - NEB Not Given Q[facility]R [facility] Metoprolol Tartrate 5 mg 05/25/17 14:02 Lopressor Injection - IVPUSH Q1H PRN TACHYCARDIA Ondansetron HCl 4 mg 05/25/17 13:48 Zofran Injection IVPUSH Q6H PRN NAUSEA AND/OR VOMITING Pantoprazole Sodium 40 mg 05/26/17 10:00 05/31/17 09:26 Protonix - PO Not Given DAILY [facility] Prednisone 20 mg 05/30/17 12:15 05/31/17 09:22 Deltasone - PO 20 mg DAILY [facility] Administration Impression 1. SHANIA 2. sepsis 3. anemia 4. CKD/ESRD 5. multiple myeloma 6. malnutrition 7. proteinuria 8. possible hepatocellular disease seen on ultrasound 9. interstitial lung disease 10. hyponatremia 11. hyperkalemia Plan - called vascular to evaluate permacath - check bmp in am - pt has been putting out urine - follow iron studies - encourage PO intake - cont pt/rehab - epogen for anemia - will follow Dr Soto
--- NOTE | 2017-05-31 15:54 | PN ---
Progress Note (short form) - Note Progress Note: Vascular surgery S/P permacath last week. Pt to go for HD in am. Will see if PC is ok. Looked at records from last HD session. No issues as per HD nurse. Will re-evaluate in am. Jayson Poe DO
--- NOTE | 2017-05-31 16:46 | CON.GI ---
Consult Consult Specialty:: GI: Dr. Dukes covering for Dr. Franklin Referred by:: Dr. Ari Gregorio Reason for Consultation:: Diarrhea - History of Present Illness Chief Complaint: Per her daughter who was present bedside, "loose bowel movements since she began eating again" History of Present Illness: 81F is admitted 05/18 for evaluation of fevers and weakness. Has had multiple recent admissions. Seen by Dr. Franklin during admission in 03/14. At that time it was for diarrhea that he felt was paradoxical in nature. During this current admission she has been getting evaluated by ID, renal, heme and cardio. called now to evaluate diarrhea. Daughter describes loose BM's. nurse reports three soft BM's today. There was no reported overt diarrhea or rectal bleeding. Confusion has been reported as has anorexia with unwillingness to eat until recent. Her daughter states that when she started eating again she began having loose bowel movements. She has never had an EGD or a colonoscopy and has deferred having these procedures performed in the past (see Dr. franklin' s recent consultation from 03/14). She has been on antibiotics on and off during several admissions. There is no family history of colon cancer / IBD. Currently Ms. Fuentes is confused and emotional (has been crying for many hours now per the daughter). Stool C. Diff was neg 05/19 - History Source History Provided By: Family Member, Medical Record Limitations to Obtaining History: Other (confusion) - Past Medical History FORESTRY PATROLMAN: Yes: Multiple Sclerosis Cardio/Vascular: Yes: Hyperlipdemia Pulmonary: Yes: COPD Gastrointestinal: Yes: Constipation, Diverticulosis (sigmoid diverticulitis in ) Renal/: Yes: Renal Inusuff (on HD), Other (aj in past) Musculoskeletal: Yes: Osteoarthritis, Other (T10 compression fracture 03/14) - Alcohol/Substance Use Hx Alcohol Use: No History of Substance Use: reports: None - Smoking History Smoking history: Never smoked Have you smoked in the past 12 months: No - Social History Usual Living Arrangement: Other ADL: Family Assistance 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 ? dementia), CA: Sister (2, one 64 with COPD, one sister is breast cancer survivor), Other: Father ( : 71 pulmonary embolism. COPD), Mother, Sister, Daughter (healthy) Review of Systems Unable to obtain ROS, reason: confused - Review of Systems Gastrointestinal: reports: Other (anorectal discomfort per daughter). denies: Abdominal Pain Physical Exam-GI Vital Signs: Vital Signs Temperature 98.4 F 05/31/17 09:00 Pulse Rate 86 05/31/17 09:00 Respiratory Rate 18 05/31/17 09:00 Blood Pressure 132/70 05/31/17 09:00 O2 Sat by Pulse Oximetry (%) 97 05/31/17 09:00 Constitutional: Yes: Other (seemed upset, weeping) Eyes: No: Sclera Icterus Cardiovascular: Yes: Regular Rate and Rhythm. No: Murmur Respiratory: Yes: Diminished (at bases, poor insp effort) Gastrointestinal Inspection: Yes: Distention (softly protuberant abdomen). No: Scars ...Auscultate: Yes: Normoactive Bowel Sounds ...Palpate: Yes: Soft. No: Guarding, Hepatomegaly, Splenomegaly, Tenderness, Tenderness, Rebound ...Percussion: No: Tympanitic (No tympany) ...Rectal Exam: Yes: Other (+ external skin tag, no external induration, copious soft light brown stool in rectal vault) Edema: Yes (trace b/l LE edema) Neurological: Yes: Confusion Labs: CBC, BMP 05/31/17 06:30 05/31/17 06:30 INR, PTT INR 1.09 (0.82-1.09) 05/18/17 01:17 Hepatic Panel Total Bilirubin 0.6 mg/dL (0.2-1.0) 05/30/17 06:45 AST 27 U/L (15-37) 05/30/17 06:45 ALT 14 U/L (12-78) 05/30/17 06:45 Alkaline Phosphatase 54 U/L (45-117) 05/30/17 06:45 Albumin 2.3 g/dl (3.4-5.0) L 05/30/17 06:45 Problem List - Problems (1) Loose bowel movements Assessment/Plan: No overt diarrhea reported and given physical exam finding of copious soft formed stool in the rectal vault (soft fecal impaction) I suspect that the loose bowel movements are pradoxical in nature secondary to fecal retention. also with component of hemorrhoidal irritation Advised: Mineral oil enema x 1 if anorectal pain worsens MiraLAX 17g PO daily Anusol cream externally twice daily for 3 days Protonix 20mg once daily while on continued corticosteroids If anorectal pain worsens, fevers develop, then CT scan of the pelvis to exclude alternate extraluminal pathology such as perirectal abscess Code(s): R19.7 - DIARRHEA, UNSPECIFIED
[2017-05-31] MEDS ORDERED: MINERAL OIL ENEMA 133 ML ENEMA PR ONE (17:01)
[2017-05-31] MEDS: HYDROCORTISONE 2.5% TOPICAL CREAM 30 GM TUBE TP SCH (22:07)
[2017-06-01] MEDS: IPRATROPIUM BR 0.02% 0.5 MG/2.5 ML VIAL.NEB. NEB SCH ×4 (06:06→23:20)
[2017-06-01 06:07] LABS: SERUM IRON SATURATION 22 % (15-55); TOTAL IRON BINDING CAPACITY 181 ug/dL (250-450); UIBC 141 ug/dL (118-369)
[2017-06-01 08:13] LABS: HEMATOCRIT 24.2 % (32.4-45.2); HEMOGLOBIN 7.6 GM/dL (10.7-15.3); MCH 28.8 pg (25.7-33.7); MCHC 31.5 g/dl (32.0-36.0); MEAN CELL VOLUME 91.3 fl (80-96); MEAN PLT VOLUME 7.5 fl (7.5-11.1); PLATELET COUNT 108 K/MM3 (134-434); RBC 2.65 M/mm3 (3.60-5.2); WHITE BLOOD COUNT 3.6 K/mm3 (4.0-10.0)
[2017-06-01 08:49] LABS: ANION GAP 6 (8-16); BLOOD UREA NITROGEN 33 mg/dL (7-18); CHLORIDE 107 mmol/L (98-107); CO2 31 mmol/L (21-32); CREATININE 2.4 mg/dL (0.55-1.02); GLUCOSE,RANDOM 70 mg/dL (74-106); MAGNESIUM 1.6 mg/dL (1.8-2.4); PHOSPHOROUS 2.2 mg/dL (2.5-4.9); POTASSIUM 3.6 mmol/L (3.5-5.1); SODIUM 144 mmol/L (136-145)
[2017-06-01] MEDS ORDERED: PT OWN MED DRAWER 7, Y5N ONE (09:07)
[2017-06-01 09:45] LABS: CALCIUM 6.7 mg/dL (8.5-10.1)
[2017-06-01] MEDS: HYDROCORTISONE 2.5% TOPICAL CREAM 30 GM TUBE TP SCH ×2 (09:51→22:20)
[2017-06-01] MEDS: predniSONE 20 MG TABLET (UD) PO SCH (09:51)
[2017-06-01] MEDS: PANTOPRAZOLE 20 MG TABLET (FP) PO SCH (09:52)
--- NOTE | 2017-06-01 11:08 | PN ---
Progress Note (short form) - Note Progress Note: Patient seen for Dr. Gregorio Complicated case with myeloma,steroid dependent, cognitive impairment and renal failure. Recently had frequent bowel movements thought to be due to soft stool impaction as per GI MD's. Had enema but in pain from rectal abrasions from frequent BM's. Cannot tolerate large pills. On Exam: Vital Signs Temp 97.6 F 06/01/17 05:00 Pulse 84 06/01/17 05:00 Resp 20 06/01/17 05:00 BP 133/77 06/01/17 05:00 Pulse Ox 95 05/31/17 20:48 Intake & Output 05/31/17 05/31/17 06/01/17 11:59 23:59 11:59 Intake Total 200 Output Total 300 800 200 Balance -100 -800 -200 Intake: Oral 200 Output: Urine 300 800 200 Farr[place] 300 800 200 Other: Voiding Method Indwelling Catheter Indwelling Catheter Bowel Movement No Yes Yes # Bowel Movements 2 Alert Cor: Reg Chest: Deecreased breath sounds Abd: Distended but soft Ext: No edema Abnormal Lab Results 05/30/17 06/01/17 06/01/17 13:42 07:30 07:30 WBC 3.6 L RBC 2.65 L Hgb 7.6 L Hct 24.2 L MCHC 31.5 L RDW 19.0 H Plt Count 108 L Anion Gap 6 L BUN 33 H D Creatinine 2.4 H Random Glucose 70 L Calcium 6.7 L* Phosphorus 2.2 L Magnesium 1.6 L TIBC 181 L IMP: Soft stool impaction with rectal Abrasions Multiple Myeloma HD Cognitive Impairment Anemia Hypocalcemia Pain from rectal abrasions Plan: Liquid suspension of Tylenol and Calcium F/U Lab F/U MD's
--- NOTE | 2017-06-01 11:11 | PN ---
Progress Note, Physician - Current Medication List Current Medications: Active Medications Acetaminophen (Tylenol *Children Solution* -) 325 mg PO Q4H PRN PRN Reason: PAIN Calcium Carbonate (Calcium Carb Oral Suspension -) 500 mg PO DAILY [facility] Fentanyl (Sublimaze Injection -) 25 mcg IVPUSH [id number] PRN PRN Reason: PAIN Hydrocortisone (Anusol 2.5% Hc Cream -) 1 applic TP BID [facility] Stop: 06/03/17 21:59 Last Admin: 06/01/17 09:51 Dose: 1 applic Ipratropium [place] (Atrovent 0.02% Nebulizer -) 1 amp NEB QIDR [facility] Last Admin: 06/01/17 06:06 Dose: Not Given Metoprolol Tartrate (Lopressor Injection -) 5 mg IVPUSH Q1H PRN PRN Reason: TACHYCARDIA Ondansetron HCl (Zofran Injection) 4 mg IVPUSH Q6H PRN PRN Reason: NAUSEA AND/OR VOMITING Pantoprazole Sodium (Protonix -) 20 mg PO DAILY [facility] Last Admin: 06/01/17 09:52 Dose: Not Given Prednisone (Deltasone -) 20 mg PO DAILY [facility] Last Admin: 06/01/17 09:51 Dose: 20 mg - Objective Vital Signs: Vital Signs Temperature 97.6 F 06/01/17 05:00 Pulse Rate 84 06/01/17 05:00 Respiratory Rate 20 06/01/17 05:00 Blood Pressure 133/77 06/01/17 05:00 O2 Sat by Pulse Oximetry (%) 95 05/31/17 20:48 Labs: CBC, BMP 06/01/17 07:30 06/01/17 07:30 INR, PTT INR 1.09 (0.82-1.09) 05/18/17 01:17 Assessment/Plan echo 02/2017: nl lv/rv, mild mr/tr, nl rvsp echo 04/2017: nl lv/rv, mild mr echo 04/2017 repeat: nl lv/rv, mild-mod mr, no effusion ct chest: b/l effs, ILD changes a/p: 81 f hx MM, hld, here with sepsis and new onset afib. 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 source (PNA?)--ID notes appreciated -cont abx per ID -chemo per onc -prior bp's borderline, mostly 90s-100s, off pressors--dropped to 80s 05/21 during HD. Recently bp's improved 110's-120's. -pancytopenic--per onc. new onset afib, brief PSVT runs: -occurred here in setting of sepsis. chadsvasc is 3, --> pt with chronic anemia , d/w heme and cleared for AC -05/21 during HD had episodes of AFL with 2:1 > variable conduction, rapid HRs, with low BPs in 80s. -if continues to occur during HD, it will make successful dialysis very difficult. -has remained in sinus since. d/w'd dtr's option of adding amio for SVT/AFL suppression, but they prefer holding off unless recurrent episodes, since they are in general concerned regarding medication toxicity potential. -05/22: family declining heparin b/c of bleeding thru skin on hands and concerns of risks of medication. Dr. Gibson explained to them that there is an uncertain degree of risk of embolism/CVA with brief PAFL, though it is felt to be statistically very low with brief duration as with her. they verbalize understanding and preference to take that risk in order to avoid risk of bleeding. heparin stopped. -05/23: still with intermittent runs of svt. -05/24-: no sig svt overnight -05/26: brief svt this AM when being cleaned, cont tele for now -05/27: still with frequent intermittent SVT, HR's to 150's in addition to frequent atrial runs and PVC's when in SR. no significant conversion pauses. -- > In setting of k 3.5 and mg 1.7. s/p HD today. Discussed with renal --> lyte repletion tonight. Discussed with family. They wish to avoid additional medications. Monitor for improvement once lytes are repleted. - 05/28-05/31: Less svt/aflutter episodes. Family requesting to defer meds (incl BB) since patient remains comfortable/asx --> ok to d/c telemetry. acute hypoxic resp failure, acute diast chf: -05/20: pt with signif tachypnea, using resp muscles, + audible wheezing. cxr with incr effusions and chf pattern. s/p lasix 40 ivp x1 -05/21: renal fxn worsening significantly (bun/creat 101/5.7), K 6.6. CXR much improved. plan per dr bateman d/w family is to begin HD today (shiley catheter access placed this am). defer lasix -05/23: sob continues to improve. s/p HD today. -05/24-05/31: sx's improved. volume managment/hd per renal aj: -? sepsis ATN -required initiation of HD here - HD continues, shortened session today due to problems with catheter. minimal po intake. hypernatremia, lyte repletion per renal.
--- NOTE | 2017-06-01 11:20 | PN ---
Progress Note (short form) - Note Progress Note: s: awake, confused, appears comfortable, no overnight events Current Medications Generic Name Dose Route Start Last Admin Trade Name Freq PRN Reason Stop Dose Admin Acetaminophen 325 mg 06/01/17 10:58 Tylenol *Children Solution* - PO Q4H PRN PAIN Calcium Carbonate 500 mg 06/01/17 11:00 Calcium Carb Oral Suspension - PO DAILY [facility] Fentanyl 25 mcg 05/25/17 13:48 Sublimaze Injection - IVPUSH [id number] PRN PAIN Hydrocortisone 1 applic 05/31/17 22:00 06/01/17 09:51 Anusol 2.5% Hc Cream - TP 06/03/17 21:59 1 applic BID [facility] Administration Ipratropium [place] 1 amp 05/25/17 18:00 06/01/17 06:06 Atrovent 0.02% Nebulizer - NEB Not Given QIDR [facility] Metoprolol Tartrate 5 mg 05/25/17 14:02 Lopressor Injection - IVPUSH Q1H PRN TACHYCARDIA Ondansetron HCl 4 mg 05/25/17 13:48 Zofran Injection IVPUSH Q6H PRN NAUSEA AND/OR VOMITING Pantoprazole Sodium 20 mg 06/01/17 10:00 06/01/17 09:52 Protonix - PO Not Given DAILY [facility] Prednisone 20 mg 05/30/17 12:15 06/01/17 09:51 Deltasone - PO 20 mg DAILY [facility] Administration Vital Signs Period Temp Pulse Resp BP Sys/Sau[place]o Pulse Ox Last 24 Hr 97.6 F-99 F 84-105 20-20 121-133/73-77 95-96 nad no jvd rrr s1s2 no mrg cta bl no jaundice diaphoresis pos dp pt no carotid bruits no le e/c/c abd nt nd pos bs CBC, BMP 06/01/17 07:30 06/01/17 07:30 echo 02/2017: nl lv/rv, mild mr/tr, nl rvsp echo 04/2017: nl lv/rv, mild mr echo 04/2017 repeat: nl lv/rv, mild-mod mr ct chest: b/l effs, ILD a/p: 81 f hx MM, hld, here with sepsis and new onset afib. 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 source (PNA?)--ID notes appreciated -cont abx per ID -chemo per onc -prior bp's borderline, mostly 90s-100s, off pressors--dropped to 80s 05/21 during HD. Recently bp's improved 110's-120's. -pancytopenic--per onc. new onset afib, brief PSVT runs: -occurred here in setting of sepsis. chadsvasc is 3, --> pt with chronic anemia , d/w heme and cleared for AC -05/21 during HD had episodes of AFL with 2:1 > variable conduction, rapid HRs, with low BPs in 80s. -if continues to occur during HD, it will make successful dialysis very difficult. -has remained in sinus since. d/w'd dtr's option of adding amio for SVT/AFL suppression, but they prefer holding off unless recurrent episodes, since they are in general concerned regarding medication toxicity potential. -05/22: family declining heparin b/c of bleeding thru skin on hands and concerns of risks of medication. Dr. Gibson explained to them that there is an uncertain degree of risk of embolism/CVA with brief PAFL, though it is felt to be statistically very low with brief duration as with her. they verbalize understanding and preference to take that risk in order to avoid risk of bleeding. heparin stopped. -05/23: still with intermittent runs of svt. -05/24-28: no sig svt overnight -05/26: brief svt this AM when being cleaned, cont tele for now -05/27: still with frequent intermittent SVT, HR's to 150's in addition to frequent atrial runs and PVC's when in SR. no significant conversion pauses. -- > In setting of k 3.5 and mg 1.7. s/p HD today. Discussed with renal --> lyte repletion tonight. Discussed with family. They wish to avoid additional medications. Monitor for improvement once lytes are repleted. - 05/28-06/01: Less svt/aflutter episodes. Family wishes to defer beta enmanuel for now since patient remains comfortable/asx acute hypoxic resp failure, acute diast chf: -05/20: pt with signif tachypnea, using resp muscles, + audible wheezing. cxr with incr effusions and chf pattern. s/p lasix 40 ivp x1 -05/21: renal fxn worsening significantly (bun/creat 101/5.7), K 6.6. CXR much improved. plan per dr bateman d/w family is to begin HD today (shiley catheter access placed this am). defer lasix -05/23: sob continues to improve. s/p HD today. -05/24-06/01: sx's improved. volume managment/hd per renal aj: -? sepsis ATN -required initiation of HD here - HD continues, shortened session today due to problems with catheter. minimal po intake. hypernatremia, lyte repletion per renal.
[2017-06-01] MEDS: ACETAMINOPHEN 650 MG/20.3 ML ORAL SOLUTION (CUPS) PO PRN ×3 (12:37→22:53)
[2017-06-01] MEDS: CALCIUM CARBONATE SUSPENSION - 500 MG/5 ML ML PO SCH (12:37)
[2017-06-01 13:41] LABS: PLATELET ESTIMATE DECREASED
--- NOTE | 2017-06-01 14:58 | PN ---
Progress Note, Physician History of Present Illness: Pt seen and examined at bedside. She is awake but confused. - Current Medication List Current Medications: Active Medications Acetaminophen (Tylenol Oral Solution -) 325 mg PO Q4H PRN PRN Reason: PAIN Last Admin: 06/01/17 12:37 Dose: 325 mg Calcium Carbonate (Calcium Carb Oral Suspension -) 500 mg PO DAILY [facility] Last Admin: 06/01/17 12:37 Dose: 500 mg Fentanyl (Sublimaze Injection -) 25 mcg IVPUSH [id number] PRN PRN Reason: PAIN Hydrocortisone (Anusol 2.5% Hc Cream -) 1 applic TP BID [facility] Stop: 06/03/17 21:59 Last Admin: 06/01/17 09:51 Dose: 1 applic Ipratropium [place] (Atrovent 0.02% Nebulizer -) 1 amp NEB QIDR [facility] Last Admin: 06/01/17 11:31 Dose: Not Given Metoprolol Tartrate (Lopressor Injection -) 5 mg IVPUSH Q1H PRN PRN Reason: TACHYCARDIA Ondansetron HCl (Zofran Injection) 4 mg IVPUSH Q6H PRN PRN Reason: NAUSEA AND/OR VOMITING Pantoprazole Sodium (Protonix -) 20 mg PO DAILY [facility] Last Admin: 06/01/17 09:52 Dose: Not Given Prednisone (Deltasone -) 20 mg PO DAILY [facility] Last Admin: 06/01/17 09:51 Dose: 20 mg - Objective Vital Signs: Vital Signs Temperature 97.8 F 06/01/17 13:15 Pulse Rate 115 H 06/01/17 13:15 Respiratory Rate 22 06/01/17 13:15 Blood Pressure 116/75 06/01/17 13:15 O2 Sat by Pulse Oximetry (%) 99 06/01/17 11:31 Constitutional: Yes: Anxious Eyes: Yes: Conjunctiva Clear HENT: Yes: Atraumatic Cardiovascular: Yes: S1, S2 Respiratory: Yes: CTA Bilaterally Gastrointestinal: Yes: Soft Genitourinary: Yes: [place] Present Musculoskeletal: Yes: Muscle Weakness Edema: No Neurological: Yes: Confusion Labs: CBC, BMP 06/01/17 07:30 06/01/17 07:30 INR, PTT INR 1.09 (0.82-1.09) 05/18/17 01:17 Problem List - Problems (1) Atrial fibrillation with RVR Code(s): I48.91 - UNSPECIFIED ATRIAL FIBRILLATION (2) Fever and neutropenia Code(s): D70.9 - NEUTROPENIA, UNSPECIFIED; R50.81 - FEVER PRESENTING WITH CONDITIONS CLASSIFIED ELSEWHERE (3) Hyperkalemia, diminished renal excretion Code(s): E87.5 - HYPERKALEMIA (4) Hyponatremia Code(s): E87.1 - HYPO-OSMOLALITY AND HYPONATREMIA (5) Multiple myeloma Code(s): C90.00 - MULTIPLE MYELOMA NOT HAVING ACHIEVED REMISSION (6) Sepsis Code(s): A41.9 - SEPSIS, UNSPECIFIED ORGANISM (7) Multiple myeloma Code(s): C90.00 - MULTIPLE MYELOMA NOT HAVING ACHIEVED REMISSION Qualifiers: Assessment/Plan Current Medications Generic Name Dose Route Start Last Admin Trade Name Freq PRN Reason Stop Dose Admin Acetaminophen 325 mg 06/01/17 10:58 06/01/17 12:37 Tylenol Oral Solution - PO 325 mg Q4H PRN Administration PAIN Calcium Carbonate 500 mg 06/01/17 12:00 06/01/17 12:37 Calcium Carb Oral Suspension - PO 500 mg DAILY [facility] Administration Fentanyl 25 mcg 05/25/17 13:48 Sublimaze Injection - IVPUSH [id number] PRN PAIN Hydrocortisone 1 applic 05/31/17 22:00 06/01/17 09:51 Anusol 2.5% Hc Cream - TP 06/03/17 21:59 1 applic BID [facility] Administration Ipratropium [place] 1 amp 05/25/17 18:00 06/01/17 11:31 Atrovent 0.02% Nebulizer - NEB Not Given QIDR [facility] Metoprolol Tartrate 5 mg 05/25/17 14:02 Lopressor Injection - IVPUSH Q1H PRN TACHYCARDIA Ondansetron HCl 4 mg 05/25/17 13:48 Zofran Injection IVPUSH Q6H PRN NAUSEA AND/OR VOMITING Pantoprazole Sodium 20 mg 06/01/17 10:00 06/01/17 09:52 Protonix - PO Not Given DAILY [facility] Prednisone 20 mg 05/30/17 12:15 06/01/17 09:51 Deltasone - PO 20 mg DAILY [facility] Administration Impression 1. SHANIA 2. sepsis 3. anemia 4. CKD/ESRD 5. multiple myeloma 6. malnutrition 7. proteinuria 8. possible hepatocellular disease seen on ultrasound 9. interstitial lung disease 10. hyponatremia 11. hyperkalemia Plan - renal function is stabilizing - pt is making urine - will not dialyze today - repeat bmp in am and continue to monitor urine output - encourage PO intake - cont pt/rehab - epogen for anemia - will follow Dr Soto
[2017-06-02] MEDS ORDERED: dilTIAZem HCL 50 MG/10 ML - 10 ML VIAL IVPUSH ONE (00:48)
[2017-06-02] MEDS ORDERED: METOPROLOL TARTRATE 5 MG/5 ML VIAL IVPUSH PRN (00:48)
[2017-06-02] MEDS ORDERED: ONDANSETRON 4 MG/2 ML VIAL IVPUSH PRN (00:48)
[2017-06-02] MEDS: IPRATROPIUM BR 0.02% 0.5 MG/2.5 ML VIAL.NEB. NEB SCH ×4 (06:20→23:32)
[2017-06-02 08:45] LABS: HEMOGLOBIN 7.6 GM/dL (10.7-15.3); MCH 29.1 pg (25.7-33.7); MCHC 31.7 g/dl (32.0-36.0); MEAN CELL VOLUME 91.8 fl (80-96); MEAN PLT VOLUME 7.5 fl (7.5-11.1); PLATELET COUNT 98 K/MM3 (134-434); RBC 2.61 M/mm3 (3.60-5.2); WHITE BLOOD COUNT 4.1 K/mm3 (4.0-10.0)
[2017-06-02 09:16] LABS: ALBUMIN 2.2 g/dl (3.4-5.0); ANION GAP 9 (8-16); BLOOD UREA NITROGEN 46 mg/dL (7-18); CALCIUM 7.1 mg/dL (8.5-10.1); CHLORIDE 106 mmol/L (98-107); CO2 29 mmol/L (21-32); CREATININE 2.8 mg/dL (0.55-1.02); GLUCOSE,RANDOM 64 mg/dL (74-106); POTASSIUM 3.3 mmol/L (3.5-5.1); SGOT/AST 26 U/L (15-37); SGPT/ALT 13 U/L (12-78); SODIUM 144 mmol/L (136-145)
[2017-06-02 09:18] LABS: ALK PHOS 51 U/L (45-117); BILIRUBIN,TOTAL 0.8 mg/dL (0.2-1.0); TOT PROT 5.2 g/dl (6.4-8.2)
[2017-06-02] MEDS: HYDROCORTISONE 2.5% TOPICAL CREAM 30 GM TUBE TP SCH ×2 (10:30→21:25)
[2017-06-02] MEDS: CALCIUM CARBONATE SUSPENSION - 500 MG/5 ML ML PO SCH (10:56)
[2017-06-02] MEDS: predniSONE 20 MG TABLET (UD) PO SCH (10:57)
[2017-06-02] MEDS: PANTOPRAZOLE 20 MG TABLET (FP) PO SCH ×2 (10:57→11:05)
--- NOTE | 2017-06-02 11:58 | PN ---
Progress Note, Physician Chief Complaint: Ms Fuentes says she feels fine, then becomes very tearful on exam. - Current Medication List Current Medications: Active Medications Acetaminophen (Tylenol Oral Solution -) 325 mg PO Q4H PRN PRN Reason: PAIN Last Admin: 06/01/17 22:53 Dose: 325 mg Calcium Carbonate (Calcium Carb Oral Suspension -) 500 mg PO DAILY [facility] Last Admin: 06/02/17 10:56 Dose: 500 mg Hydrocortisone (Anusol 2.5% Hc Cream -) 1 applic TP BID [facility] Stop: 06/03/17 21:59 Last Admin: 06/02/17 10:30 Dose: 1 applic Ipratropium [place] (Atrovent 0.02% Nebulizer -) 1 amp NEB QIDR [facility] Last Admin: 06/02/17 11:10 Dose: Not Given Metoprolol Tartrate (Lopressor Injection -) 5 mg IVPUSH Q1H PRN PRN Reason: TACHYCARDIA Ondansetron HCl (Zofran Injection) 4 mg IVPUSH Q6H PRN PRN Reason: NAUSEA AND/OR VOMITING Pantoprazole Sodium (Protonix -) 20 mg PO DAILY [facility] Last Admin: 06/02/17 11:05 Dose: Not Given Prednisone (Deltasone -) 20 mg PO DAILY [facility] Last Admin: 06/02/17 10:57 Dose: 20 mg - Objective Vital Signs: Vital Signs Temperature 36.6 C 06/02/17 09:43 Pulse Rate 87 06/02/17 10:17 Respiratory Rate 18 06/02/17 09:43 Blood Pressure 135/78 06/02/17 09:43 O2 Sat by Pulse Oximetry (%) 97 06/02/17 10:17 Constitutional: Yes: Well Nourished, No Distress, Calm Cardiovascular: Yes: Regular Rate and Rhythm. No: Gallop, Murmur, Rub Respiratory: Yes: Regular, CTA Bilaterally. No: Rales, Rhonchi, Wheezes Gastrointestinal: Yes: Normal Bowel Sounds, Soft. No: Distention, Tenderness Extremities: Yes: WNL Edema: Yes Edema: LLE: Trace, RLE: Trace Labs: CBC, BMP 06/02/17 07:05 06/02/17 07:05 INR, PTT INR 1.09 (0.82-1.09) 05/18/17 01:17 Problem List - Problems (1) Septic shock Code(s): A41.9 - SEPSIS, UNSPECIFIED ORGANISM; R65.21 - SEVERE SEPSIS WITH SEPTIC SHOCK (2) Fever and neutropenia Code(s): D70.9 - NEUTROPENIA, UNSPECIFIED; R50.81 - FEVER PRESENTING WITH CONDITIONS CLASSIFIED ELSEWHERE (3) Atrial fibrillation with RVR Code(s): I48.91 - UNSPECIFIED ATRIAL FIBRILLATION (4) Metabolic encephalopathy Code(s): G93.41 - METABOLIC ENCEPHALOPATHY (5) Hyponatremia Code(s): E87.1 - HYPO-OSMOLALITY AND HYPONATREMIA (6) Hypocalcemia Code(s): E83.51 - HYPOCALCEMIA (7) Multiple myeloma Code(s): C90.00 - MULTIPLE MYELOMA NOT HAVING ACHIEVED REMISSION (8) ESRD (end stage renal disease) Code(s): N18.6 - END STAGE RENAL DISEASE Assessment/Plan (1) Septic shock Assessment/Plan -resolved -cultures are negative -s/p full course of antibiotics Code(s): A41.9 - SEPSIS, UNSPECIFIED ORGANISM; R65.21 - SEVERE SEPSIS WITH SEPTIC SHOCK (2) Fever and neutropenia Assessment/Plan: -resolved -normal ANC Code(s): D70.9 - NEUTROPENIA, UNSPECIFIED; R50.81 - FEVER PRESENTING WITH CONDITIONS CLASSIFIED ELSEWHERE (3) Atrial fibrillation with RVR Assessment/Plan: -now in sinus rhythm -not requiring therapy Code(s): I48.91 - UNSPECIFIED ATRIAL FIBRILLATION (4) ESRD Assessment/Plan: -patient may not need permanent HD -monitor over the weekend -d/w nephrology Code(s): N17.9 - ACUTE KIDNEY FAILURE, UNSPECIFIED (5) Metabolic encephalopathy Assessment/Plan: -resolved Code(s): G93.41 - METABOLIC ENCEPHALOPATHY (6) Hyponatremia Assessment/Plan: -resolved Code(s): E87.1 - HYPO-OSMOLALITY AND HYPONATREMIA (7) Hypocalcemia Assessment/Plan: -monitor Code(s): E83.51 - HYPOCALCEMIA (8) Multiple myeloma Assessment/Plan: -oncology following -patient now endstage -cannot tolerate chemotherapy secondary to multiple comorbidities Code(s): C90.00 - MULTIPLE MYELOMA NOT HAVING ACHIEVED REMISSION (9) Anemia -stable Dispo -will d/w family plans for d/c if does not need HD -would benefit from SNF placement but family may prefer to take patient home
--- NOTE | 2017-06-02 11:59 | PN ---
Progress Note (short form) - Note Progress Note: Chart reviewed in detail. daughter at bedside. Pt sleeping. daughter says that her mom is very tired and the lola-anal pain is bothering her. GI / renal f/u reviewed O/E: General: sleepy HEENT: NCAT Cardiac: rrr Lungs: decreased breath sounds Abdomen: ND NT LE: +1 edema b/l LE. Last Vital Signs Temp Pulse Resp BP Pulse Ox 97.9 F 87 18 135/78 97 06/02/17 09:43 06/02/17 10:17 06/02/17 09:43 06/02/17 09:43 06/02/17 10:17 CBC, BMP 06/02/17 07:05 06/02/17 07:05 Current Medications Generic Name Dose Route Start Last Admin Trade Name Freq PRN Reason Stop Dose Admin Acetaminophen 325 mg 06/01/17 10:58 06/01/17 22:53 Tylenol Oral Solution - PO 325 mg Q4H PRN Administration PAIN Calcium Carbonate 500 mg 06/01/17 12:00 06/02/17 10:56 Calcium Carb Oral Suspension - PO 500 mg DAILY [facility] Administration Hydrocortisone 1 applic 05/31/17 22:00 06/02/17 10:30 Anusol 2.5% Hc Cream - TP 06/03/17 21:59 1 applic BID [facility] Administration Ipratropium [place] 1 amp 06/02/17 06:00 06/02/17 11:10 Atrovent 0.02% Nebulizer - NEB Not Given QIDR [facility] Metoprolol Tartrate 5 mg 06/02/17 00:48 Lopressor Injection - IVPUSH Q1H PRN TACHYCARDIA Ondansetron HCl 4 mg 06/02/17 00:48 Zofran Injection IVPUSH Q6H PRN NAUSEA AND/OR VOMITING Pantoprazole Sodium 20 mg 06/01/17 10:00 06/02/17 11:05 Protonix - PO Not Given DAILY [facility] Prednisone 20 mg 06/02/17 10:00 06/02/17 10:57 Deltasone - PO 20 mg DAILY [facility] Administration 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 has diarrhea. likely for transfusion for tomorrow on epogen per renal protocol. for OP f/u for her Myeloma, daughter aware. Problem List - Problems (1) Atrial fibrillation with RVR Code(s): I48.91 - UNSPECIFIED ATRIAL FIBRILLATION (2) Fever and neutropenia Code(s): D70.9 - NEUTROPENIA, UNSPECIFIED; R50.81 - FEVER PRESENTING WITH CONDITIONS CLASSIFIED ELSEWHERE (3) Acute renal failure Code(s): N17.9 - ACUTE KIDNEY FAILURE, UNSPECIFIED (4) Multiple myeloma Code(s): C90.00 - MULTIPLE MYELOMA NOT HAVING ACHIEVED REMISSION
[2017-06-02 12:24] LABS: ANISOCYTOSIS 3+; MACROCYTOSIS 0; PLATELET ESTIMATE DECREASED
--- NOTE | 2017-06-02 14:09 | PN ---
GI Progress Note Subjective: GI NOte: Has burning discomfort from the anus where Dr Polanco did find excoriation. Discussed the situation with daughter. Will temporarily stop the Miralax to allow anal area to heal. - Objective Vital Signs: Vital Signs Temperature 97.9 F 06/02/17 09:43 Pulse Rate 87 06/02/17 10:17 Respiratory Rate 18 06/02/17 09:43 Blood Pressure 135/78 06/02/17 09:43 O2 Sat by Pulse Oximetry (%) 97 06/02/17 10:17 Constitutional: Calm ...Auscultate: Yes: Normoactive Bowel Sounds ...Palpate: Yes: Soft, Other (nontender) ...Percussion: Yes: Tympanitic Labs: CBC, BMP 06/02/17 07:05 06/02/17 07:05 INR, PTT INR 1.09 (0.82-1.09) 05/18/17 01:17 Problem List - Problems (1) Constipation by delayed colonic transit Assessment/Plan: Chromic paradoxical overflow diarrhea due to constipation leading to perianal excoration. Will temporarily stop Miralax to allow the perianal area to heal Code(s): K59.01 - SLOW TRANSIT CONSTIPATION
--- NOTE | 2017-06-02 17:38 | PN ---
Progress Note, Physician History of Present Illness: Pt seen and examined at bedside. She is awake and appears comfortable. - Current Medication List Current Medications: Active Medications Acetaminophen (Tylenol Oral Solution -) 325 mg PO Q4H PRN PRN Reason: PAIN Last Admin: 06/01/17 22:53 Dose: 325 mg Calcium Carbonate (Calcium Carb Oral Suspension -) 500 mg PO DAILY [facility] Last Admin: 06/02/17 10:56 Dose: 500 mg Hydrocortisone (Anusol 2.5% Hc Cream -) 1 applic TP BID [facility] Stop: 06/03/17 21:59 Last Admin: 06/02/17 10:30 Dose: 1 applic Ipratropium [place] (Atrovent 0.02% Nebulizer -) 1 amp NEB QIDR [facility] Last Admin: 06/02/17 17:23 Dose: Not Given Metoprolol Tartrate (Lopressor Injection -) 5 mg IVPUSH Q1H PRN PRN Reason: TACHYCARDIA Ondansetron HCl (Zofran Injection) 4 mg IVPUSH Q6H PRN PRN Reason: NAUSEA AND/OR VOMITING Pantoprazole Sodium (Protonix -) 20 mg PO DAILY [facility] Last Admin: 06/02/17 11:05 Dose: Not Given Polyethylene Glycol (Miralax (For Daily Use) -) 17 gm PO DAILY [facility] Prednisone (Deltasone -) 20 mg PO DAILY [facility] Last Admin: 06/02/17 10:57 Dose: 20 mg - Objective Vital Signs: Vital Signs Temperature 99.4 F 06/02/17 14:50 Pulse Rate 94 H 06/02/17 14:50 Respiratory Rate 18 06/02/17 14:50 Blood Pressure 107/59 06/02/17 14:50 O2 Sat by Pulse Oximetry (%) 97 06/02/17 10:17 Constitutional: Yes: Anxious Eyes: Yes: Conjunctiva Clear HENT: Yes: Atraumatic Neck: Yes: Supple Cardiovascular: Yes: S1, S2 Respiratory: Yes: CTA Bilaterally Gastrointestinal: Yes: Soft Genitourinary: Yes: Farrar Present Musculoskeletal: Yes: Muscle Weakness Edema: Yes Edema: LLE: Trace, RLE: Trace Neurological: Yes: Confusion Labs: CBC, BMP 06/02/17 07:05 06/02/17 07:05 INR, PTT INR 1.09 (0.82-1.09) 05/18/17 01:17 Problem List - Problems (1) Atrial fibrillation with RVR Code(s): I48.91 - UNSPECIFIED ATRIAL FIBRILLATION (2) Fever and neutropenia Code(s): D70.9 - NEUTROPENIA, UNSPECIFIED; R50.81 - FEVER PRESENTING WITH CONDITIONS CLASSIFIED ELSEWHERE (3) Hyperkalemia, diminished renal excretion Code(s): E87.5 - HYPERKALEMIA (4) Hyponatremia Code(s): E87.1 - HYPO-OSMOLALITY AND HYPONATREMIA (5) Multiple myeloma Code(s): C90.00 - MULTIPLE MYELOMA NOT HAVING ACHIEVED REMISSION (6) Sepsis Code(s): A41.9 - SEPSIS, UNSPECIFIED ORGANISM (7) Multiple myeloma Code(s): C90.00 - MULTIPLE MYELOMA NOT HAVING ACHIEVED REMISSION Qualifiers: Assessment/Plan Current Medications Generic Name Dose Route Start Last Admin Trade Name Freq PRN Reason Stop Dose Admin Acetaminophen 325 mg 06/01/17 10:58 06/01/17 22:53 Tylenol Oral Solution - PO 325 mg Q4H PRN Administration PAIN Calcium Carbonate 500 mg 06/01/17 12:00 06/02/17 10:56 Calcium Carb Oral Suspension - PO 500 mg DAILY [facility] Administration Hydrocortisone 1 applic 05/31/17 22:00 06/02/17 10:30 Anusol 2.5% Hc Cream - TP 06/03/17 21:59 1 applic BID [facility] Administration Ipratropium [place] 1 amp 06/02/17 06:00 06/02/17 17:23 Atrovent 0.02% Nebulizer - NEB Not Given QIDR [facility] Metoprolol Tartrate 5 mg 06/02/17 00:48 Lopressor Injection - IVPUSH Q1H PRN TACHYCARDIA Ondansetron HCl 4 mg 06/02/17 00:48 Zofran Injection IVPUSH Q6H PRN NAUSEA AND/OR VOMITING Pantoprazole Sodium 20 mg 06/01/17 10:00 06/02/17 11:05 Protonix - PO Not Given DAILY [facility] Polyethylene Glycol 17 gm 06/03/17 10:00 Miralax (For Daily Use) - PO DAILY [facility] Prednisone 20 mg 06/02/17 10:00 06/02/17 10:57 Deltasone - PO 20 mg DAILY [facility] Administration Impression 1. SHANIA 2. sepsis 3. anemia 4. CKD/ESRD 5. multiple myeloma 6. malnutrition 7. proteinuria 8. possible hepatocellular disease seen on ultrasound 9. interstitial lung disease 10. hyponatremia 11. hyperkalemia Plan - continue to monitor urine output - repeat labs in am - will hold HD today as well - encourage PO intake - cont pt/rehab - epogen for anemia - will follow Dr Soto
[2017-06-03] MEDS: IPRATROPIUM BR 0.02% 0.5 MG/2.5 ML VIAL.NEB. NEB SCH ×4 (06:00→23:50)
[2017-06-03 08:50] LABS: CHLORIDE 106 mmol/L (98-107); POTASSIUM 3.7 mmol/L (3.5-5.1); SODIUM 144 mmol/L (136-145)
[2017-06-03 08:55] LABS: ANION GAP 10 (8-16); BLOOD UREA NITROGEN 52 mg/dL (7-18); CALCIUM 7.1 mg/dL (8.5-10.1); CO2 28 mmol/L (21-32); CREATININE 2.9 mg/dL (0.55-1.02); GLUCOSE,RANDOM 66 mg/dL (74-106)
[2017-06-03] MEDS ORDERED: POLYETHYLENE GLYCOL 3350 119 GM BTL PO SCH (10:00)
--- NOTE | 2017-06-03 10:24 | PN ---
Progress Note (short form) - Note Progress Note: c/o "vargas pain". pain started this Am and she states she knows its the vagras catheter because pain is in her vagina and not rectum. denies PC, SOB, feever, chills, N/V/C/D Current Medications Generic Name Dose Route Start Last Admin Trade Name Oscarq PRN Reason Stop Dose Admin Acetaminophen 325 mg 06/01/17 10:58 06/01/17 22:53 Tylenol Oral Solution - PO 325 mg Q4H PRN Administration PAIN Calcium Carbonate 500 mg 06/01/17 12:00 06/02/17 10:56 Calcium Carb Oral Suspension - PO 500 mg DAILY [facility]OM[facility] Administration Hydrocortisone 1 applic 05/31/17 22:00 06/02/17 21:25 Anusol 2.5% Hc Cream - TP 06/03/17 21:59 1 applic BID TOM[facility]S Administration Ipratropium [place] 1 amp 06/02/17 06:00 06/03/17 06:00 Atrovent 0.02% Nebulizer - NEB 1 amp QIDR [facility]OM[facility] Administration Metoprolol Tartrate 5 mg 06/02/17 00:48 Lopressor Injection - IVPUSH Q1H PRN TACHYCARDIA Ondansetron HCl 4 mg 06/02/17 00:48 Zofran Injection IVPUSH Q6H PRN NAUSEA AND/OR VOMITING Pantoprazole Sodium 20 mg 06/01/17 10:00 06/02/17 11:05 Protonix - PO Not Given DAILY [facility] Prednisone 20 mg 06/02/17 10:00 06/02/17 10:57 Deltasone - PO 20 mg DAILY [facility] Administration Last Vital Signs Temp Pulse Resp BP Pulse Ox 98.4 F 68 20 139/61 98 06/03/17 06:27 06/03/17 06:27 06/03/17 06:27 06/03/17 06:27 06/02/17 21:00 Intake & Output 05/31/17 06/01/17 06/02/17 06/03/17 23:59 23:59 23:59 23:59 Intake Total 200 100 Output Total 1100 1300 925 Balance -900 -1300 -825 General sleeping comfortable when came in the room, NAD CV S1 S2 RRR no murmur/rub/gallop Lungs CTA B/L no wheezing/rales/rhonchi Abdomen soft diffuse tender on palpation. not tender with pressure with stethscope. no suprapubic distention or tenderness Extremities no pedal edema. diffuse tenderness CBCD WBC 4.1 K/mm3 (4.0-10.0) 06/02/17 07:05 RBC 2.61 M/mm3 (3.60-5.2) L 06/02/17 07:05 Hgb 7.6 GM/dL (10.7-15.3) L 06/02/17 07:05 Hct 24.0 % (32.4-45.2) L 06/02/17 07:05 MCV 91.8 fl (80-96) 06/02/17 07:05 MCHC 31.7 g/dl (32.0-36.0) L 06/02/17 07:05 RDW 20.0 % (11.6-15.6) H 06/02/17 07:05 Plt Count 98 K/MM3 (134-434) L 06/02/17 07:05 MPV 7.5 fl (7.5-11.1) 06/02/17 07:05 CMP Sodium 144 mmol/L (136-145) 06/03/17 07:47 Potassium 3.7 mmol/L (3.5-5.1) 06/03/17 07:47 Chloride 106 mmol/L (98-107) 06/03/17 07:47 Carbon Dioxide 28 mmol/L (21-32) 06/03/17 07:47 Anion Gap 10 (8-16) 06/03/17 07:47 BUN 52 mg/dL (7-18) H 06/03/17 07:47 Creatinine 2.9 mg/dL (0.55-1.02) H 06/03/17 07:47 Creat Clearance w eGFR 16.18 (>60) 06/02/17 07:05 Calcium 7.1 mg/dL (8.5-10.1) L 06/03/17 07:47 Total Bilirubin 0.8 mg/dL (0.2-1.0) D 06/02/17 07:05 AST 26 U/L (15-37) 06/02/17 07:05 ALT 13 U/L (12-78) 06/02/17 07:05 Alkaline Phosphatase 51 U/L (45-117) 06/02/17 07:05 Total Protein 5.2 g/dl (6.4-8.2) L 06/02/17 07:05 Albumin 2.2 g/dl (3.4-5.0) L 06/02/17 07:05 A/p 81 year old female with multiple recent hospitalizations, most recent from 04/30- 05/10/17 for pneumonia, who presented to the ED with fever and generalized weakness and found to be in septic shock 1. Septic shock due to PNA- clinically improved. saturating 97% on RA. completed abx course. ID on board 2. Neutropenic fever- now resolved. received neulasta on 05/30/17 3. New onset afib- now in NSR. family refusing rate controlling medications and antiocoatulation. cardio on board 4. Thrombocytopenia- due to MM and sepsis. now stable 5. Acute on CKD- due to septic shock. s/p several HD sessions. not currently requiring HD. possibility will need if Renal function does not improve 6. Urinary retention- multiple attempts to remove catheter last week were unsuccessful. daughter at bedside requesting vargas to be removed due to excruciating pain. explained risks of worsening renal function if catheter is removed and pain during insertion to keep removing and re-inserting. agreed to attempt to flush vargas and manipulate to decrease pain. explained pain may be from rectum as well as she has several anal excoriations. as per daughter this is not source of pain. 7. Anemia- no signs of bleeding. s/p neulasta. s/p 2 units PRBC this admission. no indication for txn at this time. monitor closely. 8. MM- management per oncology 9. DVT ppx- SCD. would hold pharamcologic anticoagulation with thrombocytopenia 10. case d/w daughter present at bedside. explained would not remove vargas at this time with worsening renal function and risk of renal failure. she said that she is willing to try measures described above but if no improvement would want it removed. she is aware of risks and possibility of renal damage. agreed to wait for now. Visit type - Emergency Visit Emergency Visit: Yes ED Registration Date: 05/18/17 Care time: The patient presented to the Emergency Department on the above date and was hospitalized for further evaluation of their emergent condition. - New Patient This patient is new to me today: No - Critical Care Critical Care patient: No - Discharge Referral Referred to [facility] No
[2017-06-03] MEDS ORDERED: PT OWN MED DRAWER 7, Y5N ONE (10:27)
[2017-06-03] MEDS: HYDROCORTISONE 2.5% TOPICAL CREAM 30 GM TUBE TP SCH (10:56)
[2017-06-03] MEDS: PANTOPRAZOLE 20 MG TABLET (FP) PO SCH (10:56)
[2017-06-03] MEDS: predniSONE 20 MG TABLET (UD) PO SCH (10:56)
[2017-06-03] MEDS: ACETAMINOPHEN 650 MG/20.3 ML ORAL SOLUTION (CUPS) PO PRN (10:57)
[2017-06-03] MEDS: CALCIUM CARBONATE SUSPENSION - 500 MG/5 ML ML PO SCH (10:57)
--- NOTE | 2017-06-03 18:48 | PN ---
Progress Note, Physician History of Present Illness: Pt seen and examined at bedside. She is awake and appears comfortable. She denies shortness of breath. - Current Medication List Current Medications: Active Medications Acetaminophen (Tylenol Oral Solution -) 325 mg PO Q4H PRN PRN Reason: PAIN Last Admin: 06/03/17 10:57 Dose: 325 mg Calcium Carbonate (Calcium Carb Oral Suspension -) 500 mg PO DAILY [facility] Last Admin: 06/03/17 10:57 Dose: 500 mg Hydrocortisone (Anusol 2.5% Hc Cream -) 1 applic TP BID [facility] Stop: 06/03/17 21:59 Last Admin: 06/03/17 10:56 Dose: 1 applic Ipratropium [place] (Atrovent 0.02% Nebulizer -) 1 amp NEB QIDR [facility] Last Admin: 06/03/17 18:21 Dose: Not Given Metoprolol Tartrate (Lopressor Injection -) 5 mg IVPUSH Q1H PRN PRN Reason: TACHYCARDIA Ondansetron HCl (Zofran Injection) 4 mg IVPUSH Q6H PRN PRN Reason: NAUSEA AND/OR VOMITING Pantoprazole Sodium (Protonix -) 20 mg PO DAILY [facility] Last Admin: 06/03/17 10:56 Dose: 20 mg Prednisone (Deltasone -) 20 mg PO DAILY [facility] Last Admin: 06/03/17 10:56 Dose: 20 mg - Objective Vital Signs: Vital Signs Temperature 97.4 F L 06/03/17 14:00 Pulse Rate 100 H 06/03/17 14:00 Respiratory Rate 18 06/03/17 14:00 Blood Pressure 140/74 06/03/17 14:00 O2 Sat by Pulse Oximetry (%) 99 06/03/17 09:00 Constitutional: Yes: Calm Eyes: Yes: Conjunctiva Clear HENT: Yes: Atraumatic Cardiovascular: Yes: S1, S2 Respiratory: Yes: CTA Bilaterally Gastrointestinal: Yes: Soft Genitourinary: Yes: F[place]ar Present Musculoskeletal: Yes: Muscle Weakness Edema: No Neurological: Yes: Oriented Labs: CBC, BMP 06/02/17 07:05 06/03/17 07:47 INR, PTT INR 1.09 (0.82-1.09) 05/18/17 01:17 Problem List - Problems (1) Atrial fibrillation with RVR Code(s): I48.91 - UNSPECIFIED ATRIAL FIBRILLATION (2) Fever and neutropenia Code(s): D70.9 - NEUTROPENIA, UNSPECIFIED; R50.81 - FEVER PRESENTING WITH CONDITIONS CLASSIFIED ELSEWHERE (3) Hyperkalemia, diminished renal excretion Code(s): E87.5 - HYPERKALEMIA (4) Hyponatremia Code(s): E87.1 - HYPO-OSMOLALITY AND HYPONATREMIA (5) Multiple myeloma Code(s): C90.00 - MULTIPLE MYELOMA NOT HAVING ACHIEVED REMISSION (6) Sepsis Code(s): A41.9 - SEPSIS, UNSPECIFIED ORGANISM (7) Multiple myeloma Code(s): C90.00 - MULTIPLE MYELOMA NOT HAVING ACHIEVED REMISSION Qualifiers: Assessment/Plan Current Medications Generic Name Dose Route Start Last Admin Trade Name Freq PRN Reason Stop Dose Admin Acetaminophen 325 mg 06/01/17 10:58 06/03/17 10:57 Tylenol Oral Solution - PO 325 mg Q4H PRN Administration PAIN Calcium Carbonate 500 mg 06/01/17 12:00 06/03/17 10:57 Calcium Carb Oral Suspension - PO 500 mg DAILY [facility] Administration Hydrocortisone 1 applic 05/31/17 22:00 06/03/17 10:56 Anusol 2.5% Hc Cream - TP 06/03/17 21:59 1 applic BID TOMÁS Administration Ipratropium [place] 1 amp 06/02/17 06:00 06/03/17 18:21 Atrovent 0.02% Nebulizer - NEB Not Given QIDR TOM[facility]S Metoprolol Tartrate 5 mg 06/02/17 00:48 Lopressor Injection - IVPUSH Q1H PRN TACHYCARDIA Ondansetron HCl 4 mg 06/02/17 00:48 Zofran Injection IVPUSH Q6H PRN NAUSEA AND/OR VOMITING Pantoprazole Sodium 20 mg 06/01/17 10:00 06/03/17 10:56 Protonix - PO 20 mg DAILY [facility] Administration Prednisone 20 mg 06/02/17 10:00 06/03/17 10:56 Deltasone - PO 20 mg DAILY TOM[facility]S Administration Impression 1. SHANIA 2. sepsis 3. anemia 4. CKD/ESRD 5. multiple myeloma 6. malnutrition 7. proteinuria 8. possible hepatocellular disease seen on ultrasound 9. interstitial lung disease 10. hyponatremia 11. hyperkalemia Plan - renal function is stable off of HD - if she remains stable for a week will remove permacath - monitor urine output - encourage PO intake - cont pt/rehab - epogen for anemia - will follow Dr Soto
[2017-06-04] MEDS: IPRATROPIUM BR 0.02% 0.5 MG/2.5 ML VIAL.NEB. NEB SCH ×4 (06:13→23:35)
[2017-06-04 08:22] LABS: BASO % 0.3 % (0-2.0); EOS % 0.7 % (0-4.5); HEMATOCRIT 24.2 % (32.4-45.2); HEMOGLOBIN 7.8 GM/dL (10.7-15.3); LYMPH % 14.2 % (8-40); MCH 29.4 pg (25.7-33.7); MCHC 32.3 g/dl (32.0-36.0); MEAN PLT VOLUME 7.3 fl (7.5-11.1); MONO % 10.2 % (3.8-10.2); NEUT % 74.6 % (42.8-82.8); PLATELET COUNT 100 K/MM3 (134-434); RBC 2.66 M/mm3 (3.60-5.2); RDW 19.8 % (11.6-15.6); WHITE BLOOD COUNT 5.1 K/mm3 (4.0-10.0)
[2017-06-04 08:48] LABS: ANION GAP 10 (8-16); BLOOD UREA NITROGEN 63 mg/dL (7-18); CALCIUM 7.3 mg/dL (8.5-10.1); CHLORIDE 107 mmol/L (98-107); CO2 29 mmol/L (21-32); GLUCOSE,RANDOM 64 mg/dL (74-106); POTASSIUM 3.6 mmol/L (3.5-5.1); SODIUM 146 mmol/L (136-145)
[2017-06-04 08:51] LABS: CREATININE 2.9 mg/dL (0.55-1.02)
[2017-06-04] MEDS: CALCIUM CARBONATE SUSPENSION - 500 MG/5 ML ML PO SCH (09:35)
[2017-06-04] MEDS: predniSONE 20 MG TABLET (UD) PO SCH (09:35)
[2017-06-04] MEDS: PANTOPRAZOLE 20 MG TABLET (FP) PO SCH (09:36)
--- NOTE | 2017-06-04 13:29 | PN ---
Progress Note (short form) - Note Progress Note: Chart reviewed in detail. daughter at bedside. pt starting to get prepared for PT, oob to chair GI / renal f/u reviewed O/E: General: alert HEENT: NCAT Cardiac: rrr Lungs: decreased breath sounds Abdomen: ND NT LE: +1 edema b/l LE. Last Vital Signs Temp Pulse Resp BP Pulse Ox 97.9 F 87 18 135/78 97 06/02/17 09:43 06/02/17 10:17 06/02/17 09:43 06/02/17 09:43 06/02/17 10:17 CBC, BMP 06/02/17 07:05 06/02/17 07:05 Current Medications Generic Name Dose Route Start Last Admin Trade Name Freq PRN Reason Stop Dose Admin Acetaminophen 325 mg 06/01/17 10:58 06/01/17 22:53 Tylenol Oral Solution - PO 325 mg Q4H PRN Administration PAIN Calcium Carbonate 500 mg 06/01/17 12:00 06/02/17 10:56 Calcium Carb Oral Suspension - PO 500 mg DAILY [facility]OM[facility] Administration Hydrocortisone 1 applic 05/31/17 22:00 06/02/17 10:30 Anusol 2.5% Hc Cream - TP 06/03/17 21:59 1 applic BID TOMÁS Administration Ipratropium [place] 1 amp 06/02/17 06:00 06/02/17 11:10 Atrovent 0.02% Nebulizer - NEB Not Given QIDR TOMÁS Metoprolol Tartrate 5 mg 06/02/17 00:48 Lopressor Injection - IVPUSH Q1H PRN TACHYCARDIA Ondansetron HCl 4 mg 06/02/17 00:48 Zofran Injection IVPUSH Q6H PRN NAUSEA AND/OR VOMITING Pantoprazole Sodium 20 mg 06/01/17 10:00 06/02/17 11:05 Protonix - PO Not Given DAILY [facility]OM[facility] Prednisone 20 mg 06/02/17 10:00 06/02/17 10:57 Deltasone - PO 20 mg DAILY [facility]OMÁS Administration 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 for one prbc today Problem List - Problems (1) Atrial fibrillation with RVR Code(s): I48.91 - UNSPECIFIED ATRIAL FIBRILLATION (2) Fever and neutropenia Code(s): D70.9 - NEUTROPENIA, UNSPECIFIED; R50.81 - FEVER PRESENTING WITH CONDITIONS CLASSIFIED ELSEWHERE (3) Acute renal failure Code(s): N17.9 - ACUTE KIDNEY FAILURE, UNSPECIFIED (4) Multiple myeloma Code(s): C90.00 - MULTIPLE MYELOMA NOT HAVING ACHIEVED REMISSION
--- NOTE | 2017-06-04 16:00 | PN ---
Physical Exam: SUBJECTIVE: Patient seen and examined. She reports she is tired, she has no chest pain. Daughter at bedside noted mother to still have rectal pain/spasms at night. Would like to give mother dose of miralax tonight OBJECTIVE: Vital Signs Period Temp Pulse Resp BP Sys/Saucedo Pulse Ox Last 24 Hr 97.2 F-98.3 F 79-92 18-20 122-134/72-81 98 PE Gen: fatigued Neuro: alert, awake, cn 2-12 intact Pulm: clear anteriorly CV: s1 s2 rrr no mrg Abd: s nt nd + bs Ext: warm, trace le edema : vargas Skin: RCW port cdi , rectal excoriation improving - per daughter Laboratory Results - last 24 hr 06/03/17 06/04/17 06/04/17 07:47 07:30 07:30 WBC 5.1 RBC 2.66 L Hgb 7.8 L Hct 24.2 L MCV 91.0 MCH 29.4 MCHC 32.3 RDW 19.8 H Plt Count 100 L MPV 7.3 L Neutrophils % 74.6 Lymphocytes % 14.2 Monocytes % 10.2 D Eosinophils % 0.7 Basophils % 0.3 Sodium 146 H Potassium 3.6 Chloride 107 Carbon Dioxide 29 Anion Gap 10 BUN 63 H D Creatinine 2.9 H Random Glucose 64 L Calcium 7.3 L Blood Type O POSITIVE Antibody Screen Negative Crossmatch See Detail Active Medications Generic Name Dose Route Start Last Admin Trade Name Freq PRN Reason Stop Dose Admin Acetaminophen 325 mg 06/01/17 10:58 06/03/17 10:57 Tylenol Oral Solution - PO 325 mg Q4H PRN Administration PAIN Calcium Carbonate 500 mg 06/01/17 12:00 06/04/17 09:35 Calcium Carb Oral Suspension - PO 500 mg DAILY [facility] Administration Ipratropium [place] 1 amp 06/02/17 06:00 06/04/17 11:23 Atrovent 0.02% Nebulizer - NEB Not Given QIDR TOM[facility]S Metoprolol Tartrate 5 mg 06/02/17 00:48 Lopressor Injection - IVPUSH Q1H PRN TACHYCARDIA Ondansetron HCl 4 mg 06/02/17 00:48 Zofran Injection IVPUSH Q6H PRN NAUSEA AND/OR VOMITING Pantoprazole Sodium 20 mg 06/01/17 10:00 06/04/17 09:36 Protonix - PO Not Given DAILY [facility] Polyethylene Glycol 17 gm 06/04/17 22:00 Miralax (For Daily Use) - PO 06/04/17 22:01 HS ONE Prednisone 20 mg 06/02/17 10:00 06/04/17 09:35 Deltasone - PO 20 mg DAILY [facility]OM[facility]S Administration Assessment: 81 year old female with multiple recent hospitalizations, most recent from 04/30-05/10/17 for pneumonia, who presented to the ED with fever and generalized weakness and found to be in septic shock Plan: 1. Septic shock due to PNA - Improved, stable off abx 2. Neutropenic fever - Resolved - s/p neulasta on 05/30/17 3. SHANIA on CKD / ESRD w/ HD - Due to above - If renal fx stable x1 week remove permacath - Renal following 4. New onset afib - Rate regular - Family refusing rate controlling meds/AC - IV lopressor PRN 5. Thrombocytopenia - due to MM and sepsis - Plts rising 6. Urinary retention - Failed voiding trial - Maintain vargas 7. Anemia - Hgb stable - Transfuse as needed - Transfused 2uprbc in April 2017 8. Multiple Myeloma - Management per oncology - On prednisone 9. DVT ppx - SCDs 10. Hypernatremia - Encourage po intake 11. Constipation by delayed colonic transit - Daughter would like to trial x1 dose miralax, states perianal area improved - Miralax tonight Visit type - Emergency Visit Emergency Visit: Yes ED Registration Date: 05/18/17 Care time: The patient presented to the Emergency Department on the above date and was hospitalized for further evaluation of their emergent condition. - New Patient This patient is new to me today: Yes Date on this admission: 06/04/17 - Critical Care Critical Care patient: No
--- NOTE | 2017-06-04 17:32 | PN ---
Progress Note, Physician History of Present Illness: Pt seen and examined at bedside. There were no new events. - Current Medication List Current Medications: Active Medications Acetaminophen (Tylenol Oral Solution -) 325 mg PO Q4H PRN PRN Reason: PAIN Last Admin: 06/03/17 10:57 Dose: 325 mg Calcium Carbonate (Calcium Carb Oral Suspension -) 500 mg PO DAILY [facility] Last Admin: 06/04/17 09:35 Dose: 500 mg Ipratropium [place] (Atrovent 0.02% Nebulizer -) 1 amp NEB QIDR [facility] Last Admin: 06/04/17 11:23 Dose: Not Given Metoprolol Tartrate (Lopressor Injection -) 5 mg IVPUSH Q1H PRN PRN Reason: TACHYCARDIA Ondansetron HCl (Zofran Injection) 4 mg IVPUSH Q6H PRN PRN Reason: NAUSEA AND/OR VOMITING Pantoprazole Sodium (Protonix -) 20 mg PO DAILY [facility] Last Admin: 06/04/17 09:36 Dose: Not Given Polyethylene Glycol (Miralax (For Daily Use) -) 17 gm PO HS ONE Stop: 06/04/17 22:01 Prednisone (Deltasone -) 20 mg PO DAILY [facility] Last Admin: 06/04/17 09:35 Dose: 20 mg - Objective Vital Signs: Vital Signs Temperature 98.3 F 06/04/17 15:25 Pulse Rate 92 H 06/04/17 15:25 Respiratory Rate 18 06/04/17 15:25 Blood Pressure 122/81 06/04/17 15:25 O2 Sat by Pulse Oximetry (%) 98 06/03/17 21:00 Constitutional: Yes: Calm Eyes: Yes: Conjunctiva Clear Cardiovascular: Yes: S1, S2 Respiratory: Yes: CTA Bilaterally Gastrointestinal: Yes: Soft Genitourinary: Yes: Farrar Present Musculoskeletal: Yes: Muscle Weakness Edema: Yes Edema: LLE: Trace, RLE: Trace Neurological: Yes: Confusion Labs: CBC, BMP 06/04/17 07:30 06/04/17 07:30 INR, PTT INR 1.09 (0.82-1.09) 05/18/17 01:17 Problem List - Problems (1) Atrial fibrillation with RVR Code(s): I48.91 - UNSPECIFIED ATRIAL FIBRILLATION (2) Fever and neutropenia Code(s): D70.9 - NEUTROPENIA, UNSPECIFIED; R50.81 - FEVER PRESENTING WITH CONDITIONS CLASSIFIED ELSEWHERE (3) Hyperkalemia, diminished renal excretion Code(s): E87.5 - HYPERKALEMIA (4) Hyponatremia Code(s): E87.1 - HYPO-OSMOLALITY AND HYPONATREMIA (5) Multiple myeloma Code(s): C90.00 - MULTIPLE MYELOMA NOT HAVING ACHIEVED REMISSION (6) Sepsis Code(s): A41.9 - SEPSIS, UNSPECIFIED ORGANISM (7) Multiple myeloma Code(s): C90.00 - MULTIPLE MYELOMA NOT HAVING ACHIEVED REMISSION Qualifiers: Assessment/Plan Current Medications Generic Name Dose Route Start Last Admin Trade Name Freq PRN Reason Stop Dose Admin Acetaminophen 325 mg 06/01/17 10:58 06/03/17 10:57 Tylenol Oral Solution - PO 325 mg Q4H PRN Administration PAIN Calcium Carbonate 500 mg 06/01/17 12:00 06/04/17 09:35 Calcium Carb Oral Suspension - PO 500 mg DAILY [facility] Administration Ipratropium [place] 1 amp 06/02/17 06:00 06/04/17 11:23 Atrovent 0.02% Nebulizer - NEB Not Given QIDR [facility]OM[facility]S Metoprolol Tartrate 5 mg 06/02/17 00:48 Lopressor Injection - IVPUSH Q1H PRN TACHYCARDIA Ondansetron HCl 4 mg 06/02/17 00:48 Zofran Injection IVPUSH Q6H PRN NAUSEA AND/OR VOMITING Pantoprazole Sodium 20 mg 06/01/17 10:00 06/04/17 09:36 Protonix - PO Not Given DAILY [facility] Polyethylene Glycol 17 gm 06/04/17 22:00 Miralax (For Daily Use) - PO 06/04/17 22:01 HS ONE Prednisone 20 mg 06/02/17 10:00 06/04/17 09:35 Deltasone - PO 20 mg DAILY [facility] Administration Impression 1. SHANIA 2. sepsis 3. anemia 4. CKD/ESRD 5. multiple myeloma 6. malnutrition 7. proteinuria 8. possible hepatocellular disease seen on ultrasound 9. interstitial lung disease 10. hyponatremia 11. hyperkalemia Plan - stable off of HD - encourage PO free water intake - if she remains stable for a week will remove permacath - monitor urine output - cont pt/rehab - will follow Dr Soto
[2017-06-04] MEDS ORDERED: POLYETHYLENE GLYCOL 3350 119 GM BTL PO ONE (22:00)
[2017-06-05] MEDS: IPRATROPIUM BR 0.02% 0.5 MG/2.5 ML VIAL.NEB. NEB SCH ×3 (06:17→17:30)
[2017-06-05 08:32] LABS: HEMATOCRIT 31.7 % (32.4-45.2); HEMOGLOBIN 10.4 GM/dL (10.7-15.3); MCHC 32.7 g/dl (32.0-36.0); MEAN CELL VOLUME 88.8 fl (80-96); MEAN PLT VOLUME 7.2 fl (7.5-11.1); PLATELET COUNT 100 K/MM3 (134-434); RBC 3.58 M/mm3 (3.60-5.2); RDW 18.2 % (11.6-15.6); WHITE BLOOD COUNT 4.6 K/mm3 (4.0-10.0)
[2017-06-05 09:04] LABS: ANION GAP 7 (8-16); BLOOD UREA NITROGEN 58 mg/dL (7-18); CHLORIDE 109 mmol/L (98-107); CO2 29 mmol/L (21-32); GLUCOSE,RANDOM 68 mg/dL (74-106); POTASSIUM 3.8 mmol/L (3.5-5.1); SODIUM 145 mmol/L (136-145)
[2017-06-05 09:07] LABS: CALCIUM 7.2 mg/dL (8.5-10.1); CREATININE 2.7 mg/dL (0.55-1.02)
[2017-06-05] MEDS ORDERED: PT OWN MED DRAWER 7, Y5N ONE (11:15)
[2017-06-05] MEDS: predniSONE 20 MG TABLET (UD) PO SCH ×2 (11:17→11:23)
[2017-06-05] MEDS: PANTOPRAZOLE 20 MG TABLET (FP) PO SCH (11:17)
[2017-06-05] MEDS: CALCIUM CARBONATE SUSPENSION - 500 MG/5 ML ML PO SCH (11:19)
--- NOTE | 2017-06-05 11:46 | PN ---
Progress Note, Physician Chief Complaint: resp failure History of Present Illness: dtr at bedside--pt hearing has been lost while here, they need to yell. her breathing is good, no breathlessness at all much more energetic/alert no cp, palpit - Current Medication List Current Medications: Active Medications Acetaminophen (Tylenol Oral Solution -) 325 mg PO Q4H PRN PRN Reason: PAIN Last Admin: 06/03/17 10:57 Dose: 325 mg Calcium Carbonate (Calcium Carb Oral Suspension -) 500 mg PO DAILY [facility] Last Admin: 06/05/17 11:19 Dose: 500 mg Ipratropium [place] (Atrovent 0.02% Nebulizer -) 1 amp NEB QIDR [facility] Last Admin: 06/05/17 11:00 Dose: Not Given Metoprolol Tartrate (Lopressor Injection -) 5 mg IVPUSH Q1H PRN PRN Reason: TACHYCARDIA Ondansetron HCl (Zofran Injection) 4 mg IVPUSH Q6H PRN PRN Reason: NAUSEA AND/OR VOMITING Pantoprazole Sodium (Protonix -) 20 mg PO DAILY [facility] Last Admin: 06/05/17 11:17 Dose: 20 mg Prednisone (Deltasone -) 20 mg PO DAILY [facility] Last Admin: 06/05/17 11:23 Dose: Not Given - Objective Vital Signs: Vital Signs Temperature 98.5 F 06/05/17 11:02 Pulse Rate 86 06/05/17 11:02 Respiratory Rate 20 06/05/17 11:02 Blood Pressure 121/67 06/05/17 11:02 O2 Sat by Pulse Oximetry (%) 98 06/05/17 09:37 Constitutional: Yes: Well Nourished, No Distress, Calm Cardiovascular: Yes: Regular Rate and Rhythm, S1, S2. No: JVD, Murmur, Rub Respiratory: Yes: Regular, CTA Bilaterally. No: Accessory Muscle Use, Rales, Wheezes Extremities: No: Cold Edema: No Neurological: Yes: Alert. No: Seizure Psychiatric: No: Agitated Labs: CBC, BMP 06/05/17 07:00 06/05/17 07:00 INR, PTT INR 1.09 (0.82-1.09) 05/18/17 01:17 Assessment/Plan echo 02/2017: nl lv/rv, mild mr/tr, nl rvsp echo 04/2017: nl lv/rv, mild mr echo 04/2017 repeat: nl lv/rv, mild-mod mr ct chest: b/l effs a/p: 81 f hx MM, hld, here with sepsis and new onset afib. 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 source (PNA?)--ID notes appreciated -cont abx per ID -chemo per onc new onset afib, brief PSVT runs: -occurred here in setting of sepsis. chadsvasc is 3, --> pt with chronic anemia , d/w'd heme and initially cleared for AC -family declined AC (see prior notes) -anemia here (hgb 7's), requiring PRBCs -recurrent brief episodes since, no sx's, none sustained--family declined empiric BB acute hypoxic resp failure, acute diast chf: -acute vol overload ? sec to sepsis/IVF plus renal fxn deterioration -volume status much improved s/p HD here, appears clinically euvolemic -resp status stable aj: -? sepsis ATN -required initiation of HD here -renal fxn remains recovered and pt clinically stable off HD--no plans to resume at present, per dr cheney
[2017-06-05 12:07] LABS: ANISOCYTOSIS 1+; MACROCYTOSIS 0; OVALOCYTE 1+; PLATELET ESTIMATE DECREASED; TEAR DROP CELLS 1+
--- NOTE | 2017-06-05 12:17 | PN ---
Progress Note, Physician Chief Complaint: Ms Fuentes is without complaint. No cp, sob, n/v. - Current Medication List Current Medications: Active Medications Acetaminophen (Tylenol Oral Solution -) 325 mg PO Q4H PRN PRN Reason: PAIN Last Admin: 06/03/17 10:57 Dose: 325 mg Calcium Carbonate (Calcium Carb Oral Suspension -) 500 mg PO DAILY [facility] Last Admin: 06/05/17 11:19 Dose: 500 mg Ipratropium [place] (Atrovent 0.02% Nebulizer -) 1 amp NEB QIDR [facility] Last Admin: 06/05/17 11:00 Dose: Not Given Metoprolol Tartrate (Lopressor Injection -) 5 mg IVPUSH Q1H PRN PRN Reason: TACHYCARDIA Ondansetron HCl (Zofran Injection) 4 mg IVPUSH Q6H PRN PRN Reason: NAUSEA AND/OR VOMITING Pantoprazole Sodium (Protonix -) 20 mg PO DAILY [facility] Last Admin: 06/05/17 11:17 Dose: 20 mg Prednisone (Deltasone -) 10 mg PO DAILY [facility] - Objective Vital Signs: Vital Signs Temperature 36.9 C 06/05/17 11:02 Pulse Rate 86 06/05/17 11:02 Respiratory Rate 20 06/05/17 11:02 Blood Pressure 121/67 06/05/17 11:02 O2 Sat by Pulse Oximetry (%) 98 06/05/17 09:37 Constitutional: Yes: No Distress, Calm, Obese Cardiovascular: Yes: Regular Rate and Rhythm. No: Gallop, Murmur, Rub Respiratory: Yes: Regular, CTA Bilaterally, On Nasal O2. No: Rales, Rhonchi, Wheezes Gastrointestinal: Yes: Normal Bowel Sounds, Soft. No: Distention, Tenderness Extremities: Yes: WNL Edema: No Labs: CBC, BMP 06/05/17 07:00 06/05/17 07:00 INR, PTT INR 1.09 (0.82-1.09) 05/18/17 01:17 Problem List - Problems (1) Septic shock Code(s): A41.9 - SEPSIS, UNSPECIFIED ORGANISM; R65.21 - SEVERE SEPSIS WITH SEPTIC SHOCK (2) Fever and neutropenia Code(s): D70.9 - NEUTROPENIA, UNSPECIFIED; R50.81 - FEVER PRESENTING WITH CONDITIONS CLASSIFIED ELSEWHERE (3) Atrial fibrillation with RVR Code(s): I48.91 - UNSPECIFIED ATRIAL FIBRILLATION (4) Metabolic encephalopathy Code(s): G93.41 - METABOLIC ENCEPHALOPATHY (5) Hyponatremia Code(s): E87.1 - HYPO-OSMOLALITY AND HYPONATREMIA (6) Hypocalcemia Code(s): E83.51 - HYPOCALCEMIA (7) Multiple myeloma Code(s): C90.00 - MULTIPLE MYELOMA NOT HAVING ACHIEVED REMISSION (8) ESRD (end stage renal disease) Code(s): N18.6 - END STAGE RENAL DISEASE Assessment/Plan (1) Septic shock Assessment/Plan -resolved -cultures are negative -s/p full course of antibiotics Code(s): A41.9 - SEPSIS, UNSPECIFIED ORGANISM; R65.21 - SEVERE SEPSIS WITH SEPTIC SHOCK (2) Fever and neutropenia Assessment/Plan: -resolved -normal ANC Code(s): D70.9 - NEUTROPENIA, UNSPECIFIED; R50.81 - FEVER PRESENTING WITH CONDITIONS CLASSIFIED ELSEWHERE (3) Atrial fibrillation with RVR Assessment/Plan: -now in sinus rhythm -not requiring therapy Code(s): I48.91 - UNSPECIFIED ATRIAL FIBRILLATION (4) CKD Assessment/Plan: -renal function improved and stable -case d/w nephrology -planning for removal of permacath Code(s): N17.9 - ACUTE KIDNEY FAILURE, UNSPECIFIED (5) Metabolic encephalopathy Assessment/Plan: -resolved Code(s): G93.41 - METABOLIC ENCEPHALOPATHY (6) Hyponatremia Assessment/Plan: -resolved Code(s): E87.1 - HYPO-OSMOLALITY AND HYPONATREMIA (7) Hypocalcemia Assessment/Plan: -monitor Code(s): E83.51 - HYPOCALCEMIA (8) Multiple myeloma Assessment/Plan: -oncology following -patient now endstage -cannot tolerate chemotherapy secondary to multiple comorbidities Code(s): C90.00 - MULTIPLE MYELOMA NOT HAVING ACHIEVED REMISSION (9) Anemia -stable Dispo -dispo planning since no longer needs HD -planning for discharge to SNF
[2017-06-05] MEDS: predniSONE 10 MG TABLET (UD) PO SCH (12:27)
--- NOTE | 2017-06-05 15:44 | PN ---
Progress Note, Physician History of Present Illness: Pt seen and examined at bedside. She is out of bed to chair. She appears comfortable. - Current Medication List Current Medications: Active Medications Acetaminophen (Tylenol Oral Solution -) 325 mg PO Q4H PRN PRN Reason: PAIN Last Admin: 06/03/17 10:57 Dose: 325 mg Calcium Carbonate (Calcium Carb Oral Suspension -) 500 mg PO DAILY [facility] Last Admin: 06/05/17 11:19 Dose: 500 mg Ipratropium [place] (Atrovent 0.02% Nebulizer -) 1 amp NEB QIDR [facility] Last Admin: 06/05/17 11:00 Dose: Not Given Metoprolol Tartrate (Lopressor Injection -) 5 mg IVPUSH Q1H PRN PRN Reason: TACHYCARDIA Ondansetron HCl (Zofran Injection) 4 mg IVPUSH Q6H PRN PRN Reason: NAUSEA AND/OR VOMITING Pantoprazole Sodium (Protonix -) 20 mg PO DAILY [facility] Last Admin: 06/05/17 11:17 Dose: 20 mg Prednisone (Deltasone -) 10 mg PO DAILY [facility] Last Admin: 06/05/17 12:27 Dose: 10 mg - Objective Vital Signs: Vital Signs Temperature 98.1 F 06/05/17 15:11 Pulse Rate 89 06/05/17 15:11 Respiratory Rate 18 06/05/17 15:11 Blood Pressure 117/65 06/05/17 15:11 O2 Sat by Pulse Oximetry (%) 97 06/05/17 11:15 Constitutional: Yes: Calm Eyes: Yes: Conjunctiva Clear HENT: Yes: Atraumatic Neck: Yes: Supple Cardiovascular: Yes: S1, S2 Respiratory: Yes: CTA Bilaterally Gastrointestinal: Yes: Soft Genitourinary: Yes: [place] Present Musculoskeletal: Yes: Muscle Weakness Edema: Yes Edema: LLE: Trace, RLE: Trace Neurological: Yes: Confusion Labs: CBC, BMP 06/05/17 07:00 06/05/17 07:00 INR, PTT INR 1.09 (0.82-1.09) 05/18/17 01:17 Problem List - Problems (1) Atrial fibrillation with RVR Code(s): I48.91 - UNSPECIFIED ATRIAL FIBRILLATION (2) Fever and neutropenia Code(s): D70.9 - NEUTROPENIA, UNSPECIFIED; R50.81 - FEVER PRESENTING WITH CONDITIONS CLASSIFIED ELSEWHERE (3) Hyperkalemia, diminished renal excretion Code(s): E87.5 - HYPERKALEMIA (4) Hyponatremia Code(s): E87.1 - HYPO-OSMOLALITY AND HYPONATREMIA (5) Multiple myeloma Code(s): C90.00 - MULTIPLE MYELOMA NOT HAVING ACHIEVED REMISSION (6) Sepsis Code(s): A41.9 - SEPSIS, UNSPECIFIED ORGANISM (7) Multiple myeloma Code(s): C90.00 - MULTIPLE MYELOMA NOT HAVING ACHIEVED REMISSION Qualifiers: Assessment/Plan Current Medications Generic Name Dose Route Start Last Admin Trade Name Freq PRN Reason Stop Dose Admin Acetaminophen 325 mg 06/01/17 10:58 06/03/17 10:57 Tylenol Oral Solution - PO 325 mg Q4H PRN Administration PAIN Calcium Carbonate 500 mg 06/01/17 12:00 06/05/17 11:19 Calcium Carb Oral Suspension - PO 500 mg DAILY [facility] Administration Ipratropium [place] 1 amp 06/02/17 06:00 06/05/17 11:00 Atrovent 0.02% Nebulizer - NEB Not Given QIDR [facility] Metoprolol Tartrate 5 mg 06/02/17 00:48 Lopressor Injection - IVPUSH Q1H PRN TACHYCARDIA Ondansetron HCl 4 mg 06/02/17 00:48 Zofran Injection IVPUSH Q6H PRN NAUSEA AND/OR VOMITING Pantoprazole Sodium 20 mg 06/01/17 10:00 06/05/17 11:17 Protonix - PO 20 mg DAILY [facility] Administration Prednisone 10 mg 06/05/17 11:55 06/05/17 12:27 Deltasone - PO 10 mg DAILY [facility] Administration Impression 1. SHANIA 2. sepsis 3. anemia 4. CKD/ESRD 5. multiple myeloma 6. malnutrition 7. proteinuria 8. possible hepatocellular disease seen on ultrasound 9. interstitial lung disease 10. hyponatremia 11. hyperkalemia Plan - renal function is stable - will call surgery to remove permacath - encourage PO intake - hg is improved - discussed with family - recommend rehab/pt - will follow Dr Soto
[2017-06-05] MEDS: POLYETHYLENE GLYCOL 3350 119 GM BTL PO SCH (18:08)
[2017-06-06] MEDS: IPRATROPIUM BR 0.02% 0.5 MG/2.5 ML VIAL.NEB. NEB SCH ×4 (00:25→18:05)
[2017-06-06 08:18] LABS: HEMATOCRIT 32.6 % (32.4-45.2); HEMOGLOBIN 10.4 GM/dL (10.7-15.3); MCH 28.6 pg (25.7-33.7); MEAN CELL VOLUME 89.3 fl (80-96); MEAN PLT VOLUME 7.2 fl (7.5-11.1); PLATELET COUNT 100 K/MM3 (134-434); RBC 3.65 M/mm3 (3.60-5.2); RDW 18.8 % (11.6-15.6); WHITE BLOOD COUNT 4.9 K/mm3 (4.0-10.0)
[2017-06-06 08:29] LABS: ANION GAP 9 (8-16); BLOOD UREA NITROGEN 60 mg/dL (7-18); CALCIUM 7.3 mg/dL (8.5-10.1); CHLORIDE 107 mmol/L (98-107); CO2 28 mmol/L (21-32); CREATININE 2.6 mg/dL (0.55-1.02); GLUCOSE,RANDOM 66 mg/dL (74-106); MAGNESIUM 1.7 mg/dL (1.8-2.4); PHOSPHOROUS 1.9 mg/dL (2.5-4.9); POTASSIUM 3.8 mmol/L (3.5-5.1); SODIUM 144 mmol/L (136-145)
[2017-06-06] MEDS ORDERED: PT OWN MED DRAWER 7, Y5N ONE (09:59)
[2017-06-06] MEDS: PANTOPRAZOLE 20 MG TABLET (FP) PO SCH (10:02)
[2017-06-06] MEDS: predniSONE 10 MG TABLET (UD) PO SCH (10:03)
[2017-06-06] MEDS: CALCIUM CARBONATE SUSPENSION - 500 MG/5 ML ML PO SCH (10:03)
[2017-06-06] MEDS: POLYETHYLENE GLYCOL 3350 119 GM BTL PO SCH (10:04)
--- NOTE | 2017-06-06 12:00 | PN ---
Progress Note, Physician Chief Complaint: Ms Fuentes says she is having difficulty urinating. No cp, sob, n/v. - Current Medication List Current Medications: Active Medications Acetaminophen (Tylenol Oral Solution -) 325 mg PO Q4H PRN PRN Reason: PAIN Last Admin: 06/03/17 10:57 Dose: 325 mg Calcium Carbonate (Calcium Carb Oral Suspension -) 500 mg PO DAILY [facility] Last Admin: 06/06/17 10:03 Dose: 500 mg Ipratropium [place] (Atrovent 0.02% Nebulizer -) 1 amp NEB QIDR [facility] Last Admin: 06/06/17 11:11 Dose: Not Given Metoprolol Tartrate (Lopressor Injection -) 5 mg IVPUSH Q1H PRN PRN Reason: TACHYCARDIA Ondansetron HCl (Zofran Injection) 4 mg IVPUSH Q6H PRN PRN Reason: NAUSEA AND/OR VOMITING Pantoprazole Sodium (Protonix -) 20 mg PO DAILY [facility] Last Admin: 06/06/17 10:02 Dose: Not Given Polyethylene Glycol (Miralax (For Daily Use) -) 17 gm PO DAILY [facility] Last Admin: 06/06/17 10:04 Dose: 17 grams Prednisone (Deltasone -) 10 mg PO DAILY [facility] Last Admin: 06/06/17 10:03 Dose: 10 mg - Objective Vital Signs: Vital Signs Temperature 36.6 C 06/06/17 05:37 Pulse Rate 80 06/06/17 09:35 Respiratory Rate 18 06/06/17 05:37 Blood Pressure 146/84 06/06/17 05:37 O2 Sat by Pulse Oximetry (%) 97 06/06/17 09:35 Constitutional: Yes: No Distress, Calm, Obese Cardiovascular: Yes: Regular Rate and Rhythm. No: Gallop, Murmur, Rub Respiratory: Yes: Regular, CTA Bilaterally. No: Rales, Rhonchi, Wheezes Gastrointestinal: Yes: Normal Bowel Sounds, Soft. No: Distention, Tenderness Extremities: Yes: WNL Edema: No Labs: CBC, BMP 06/06/17 07:30 06/06/17 07:30 INR, PTT INR 1.09 (0.82-1.09) 05/18/17 01:17 Problem List - Problems (1) Septic shock Code(s): A41.9 - SEPSIS, UNSPECIFIED ORGANISM; R65.21 - SEVERE SEPSIS WITH SEPTIC SHOCK (2) Fever and neutropenia Code(s): D70.9 - NEUTROPENIA, UNSPECIFIED; R50.81 - FEVER PRESENTING WITH CONDITIONS CLASSIFIED ELSEWHERE (3) Atrial fibrillation with RVR Code(s): I48.91 - UNSPECIFIED ATRIAL FIBRILLATION (4) Metabolic encephalopathy Code(s): G93.41 - METABOLIC ENCEPHALOPATHY (5) Hyponatremia Code(s): E87.1 - HYPO-OSMOLALITY AND HYPONATREMIA (6) Hypocalcemia Code(s): E83.51 - HYPOCALCEMIA (7) Multiple myeloma Code(s): C90.00 - MULTIPLE MYELOMA NOT HAVING ACHIEVED REMISSION (8) ESRD (end stage renal disease) Code(s): N18.6 - END STAGE RENAL DISEASE Assessment/Plan (1) Septic shock Assessment/Plan -resolved -cultures are negative -s/p full course of antibiotics Code(s): A41.9 - SEPSIS, UNSPECIFIED ORGANISM; R65.21 - SEVERE SEPSIS WITH SEPTIC SHOCK (2) Fever and neutropenia Assessment/Plan: -resolved -normal ANC Code(s): D70.9 - NEUTROPENIA, UNSPECIFIED; R50.81 - FEVER PRESENTING WITH CONDITIONS CLASSIFIED ELSEWHERE (3) Atrial fibrillation with RVR Assessment/Plan: -now in sinus rhythm -not requiring therapy Code(s): I48.91 - UNSPECIFIED ATRIAL FIBRILLATION (4) CKD Assessment/Plan: -renal function stable -planning for removal of permacath -dispo planning Code(s): N17.9 - ACUTE KIDNEY FAILURE, UNSPECIFIED (5) Metabolic encephalopathy Assessment/Plan: -resolved Code(s): G93.41 - METABOLIC ENCEPHALOPATHY (6) Hyponatremia Assessment/Plan: -resolved Code(s): E87.1 - HYPO-OSMOLALITY AND HYPONATREMIA (7) Hypocalcemia Assessment/Plan: -monitor Code(s): E83.51 - HYPOCALCEMIA (8) Multiple myeloma Assessment/Plan: -oncology following -patient now endstage -cannot tolerate chemotherapy secondary to multiple comorbidities Code(s): C90.00 - MULTIPLE MYELOMA NOT HAVING ACHIEVED REMISSION (9) Urinary retention -bladder scan -may need vargas replaced with bladder training -can be done at [facility]
[2017-06-06 13:29] LABS: ANISOCYTOSIS 3+; MACROCYTOSIS 0; PLATELET ESTIMATE DECREASED
[2017-06-06] MEDS ORDERED: POTASSIUM PHOSPHATE 10 MM in DEXTROSE 5%-WATER - 250 ML IVPB ONE (13:35)
[2017-06-06] MEDS ORDERED: MAGNESIUM OXIDE 400 MG TABLET (FP) PO ONE (13:35)
--- NOTE | 2017-06-06 13:35 | PN ---
Progress Note, Physician History of Present Illness: Pt seen and examined at bedside. She is awake and appears comfortable. She tolerated the voiding trial. - Current Medication List Current Medications: Active Medications Acetaminophen (Tylenol Oral Solution -) 325 mg PO Q4H PRN PRN Reason: PAIN Last Admin: 06/03/17 10:57 Dose: 325 mg Calcium Carbonate (Calcium Carb Oral Suspension -) 500 mg PO DAILY [facility] Last Admin: 06/06/17 10:03 Dose: 500 mg Ipratropium [place] (Atrovent 0.02% Nebulizer -) 1 amp NEB QIDR [facility] Last Admin: 06/06/17 11:11 Dose: Not Given Metoprolol Tartrate (Lopressor Injection -) 5 mg IVPUSH Q1H PRN PRN Reason: TACHYCARDIA Ondansetron HCl (Zofran Injection) 4 mg IVPUSH Q6H PRN PRN Reason: NAUSEA AND/OR VOMITING Pantoprazole Sodium (Protonix -) 20 mg PO DAILY [facility] Last Admin: 06/06/17 10:02 Dose: Not Given Polyethylene Glycol (Miralax (For Daily Use) -) 17 gm PO DAILY [facility] Last Admin: 06/06/17 10:04 Dose: 17 grams Prednisone (Deltasone -) 10 mg PO DAILY [facility] Last Admin: 06/06/17 10:03 Dose: 10 mg - Objective Vital Signs: Vital Signs Temperature 98.6 F 06/06/17 09:36 Pulse Rate 83 06/06/17 09:36 Respiratory Rate 18 06/06/17 09:36 Blood Pressure 141/79 06/06/17 09:36 O2 Sat by Pulse Oximetry (%) 97 06/06/17 09:35 Constitutional: Yes: Calm Eyes: Yes: Conjunctiva Clear HENT: Yes: Atraumatic Neck: Yes: Supple Cardiovascular: Yes: S1, S2 Respiratory: Yes: CTA Bilaterally Gastrointestinal: Yes: Soft Genitourinary: Yes: WNL Musculoskeletal: Yes: Muscle Weakness Edema: No Neurological: Yes: Confusion Labs: CBC, BMP 06/06/17 07:30 06/06/17 07:30 INR, PTT INR 1.09 (0.82-1.09) 05/18/17 01:17 Problem List - Problems (1) Atrial fibrillation with RVR Code(s): I48.91 - UNSPECIFIED ATRIAL FIBRILLATION (2) Fever and neutropenia Code(s): D70.9 - NEUTROPENIA, UNSPECIFIED; R50.81 - FEVER PRESENTING WITH CONDITIONS CLASSIFIED ELSEWHERE (3) Hyperkalemia, diminished renal excretion Code(s): E87.5 - HYPERKALEMIA (4) Hyponatremia Code(s): E87.1 - HYPO-OSMOLALITY AND HYPONATREMIA (5) Multiple myeloma Code(s): C90.00 - MULTIPLE MYELOMA NOT HAVING ACHIEVED REMISSION (6) Sepsis Code(s): A41.9 - SEPSIS, UNSPECIFIED ORGANISM (7) Multiple myeloma Code(s): C90.00 - MULTIPLE MYELOMA NOT HAVING ACHIEVED REMISSION Qualifiers: Assessment/Plan Current Medications Generic Name Dose Route Start Last Admin Trade Name Freq PRN Reason Stop Dose Admin Acetaminophen 325 mg 06/01/17 10:58 06/03/17 10:57 Tylenol Oral Solution - PO 325 mg Q4H PRN Administration PAIN Calcium Carbonate 500 mg 06/01/17 12:00 06/06/17 10:03 Calcium Carb Oral Suspension - PO 500 mg DAILY [facility] Administration Ipratropium [place] 1 amp 06/02/17 06:00 06/06/17 11:11 Atrovent 0.02% Nebulizer - NEB Not Given QIDR [facility] Metoprolol Tartrate 5 mg 06/02/17 00:48 Lopressor Injection - IVPUSH Q1H PRN TACHYCARDIA Ondansetron HCl 4 mg 06/02/17 00:48 Zofran Injection IVPUSH Q6H PRN NAUSEA AND/OR VOMITING Pantoprazole Sodium 20 mg 06/01/17 10:00 06/06/17 10:02 Protonix - PO Not Given DAILY [facility] Polyethylene Glycol 17 gm 06/05/17 16:00 06/06/17 10:04 Miralax (For Daily Use) - PO 17 grams DAILY [facility] Administration Prednisone 10 mg 06/05/17 11:55 06/06/17 10:03 Deltasone - PO 10 mg DAILY [facility] Administration Impression 1. SHANIA 2. sepsis 3. anemia 4. CKD 5. multiple myeloma 6. malnutrition 7. proteinuria 8. possible hepatocellular disease seen on ultrasound 9. interstitial lung disease 10. hyponatremia 11. hyperkalemia Plan - renal function function is stable - will give a dose of potassium PO - called vascular to remove permacath - pt tolerated voiding trial - discussed with family - encourage PO intake - recommend rehab/pt - will follow Dr Soto
--- NOTE | 2017-06-06 15:08 | PN ---
Progress Note (short form) - Note Progress Note: Chart reviewed in detail. alicia removed. daughter at bedside. O/E: General: alert HEENT: NCAT Cardiac: rrr Lungs: decreased breath sounds Abdomen: ND NT LE: +1 edema b/l LE. Last Vital Signs Temp Pulse Resp BP Pulse Ox 97.4 F L 85 20 133/77 97 06/06/17 13:50 06/06/17 13:50 06/06/17 13:50 06/06/17 13:50 06/06/17 09:35 CBC, BMP 06/06/17 07:30 06/06/17 07:30 Current Medications Generic Name Dose Route Start Last Admin Trade Name Freq PRN Reason Stop Dose Admin Acetaminophen 325 mg 06/01/17 10:58 06/03/17 10:57 Tylenol Oral Solution - PO 325 mg Q4H PRN Administration PAIN Calcium Carbonate 500 mg 06/01/17 12:00 06/06/17 10:03 Calcium Carb Oral Suspension - PO 500 mg DAILY [facility] Administration Potassium Phosphate 10 mm/ 253.3333 mls @ 62.5 mls/hr 06/06/17 13:35 Dextrose IVPB 06/06/17 17:38 ONCE ONE Ipratropium [place] 1 amp 06/02/17 06:00 06/06/17 11:11 Atrovent 0.02% Nebulizer - NEB Not Given QIDR [facility] Metoprolol Tartrate 5 mg 06/02/17 00:48 Lopressor Injection - IVPUSH Q1H PRN TACHYCARDIA Ondansetron HCl 4 mg 06/02/17 00:48 Zofran Injection IVPUSH Q6H PRN NAUSEA AND/OR VOMITING Pantoprazole Sodium 20 mg 06/01/17 10:00 06/06/17 10:02 Protonix - PO Not Given DAILY [facility] Polyethylene Glycol 17 gm 06/05/17 16:00 06/06/17 10:04 Miralax (For Daily Use) - PO 17 grams DAILY [facility] Administration Prednisone 10 mg 06/05/17 11:55 06/06/17 10:03 Deltasone - PO 10 mg DAILY [facility] Administration 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 now with stable CBC Renal f/u noted TOV as vargas removed steroid taper per pulm/primary family aware to f/u in office. Problem List - Problems (1) Atrial fibrillation with RVR Code(s): I48.91 - UNSPECIFIED ATRIAL FIBRILLATION (2) Fever and neutropenia Code(s): D70.9 - NEUTROPENIA, UNSPECIFIED; R50.81 - FEVER PRESENTING WITH CONDITIONS CLASSIFIED ELSEWHERE (3) Acute renal failure Code(s): N17.9 - ACUTE KIDNEY FAILURE, UNSPECIFIED (4) Multiple myeloma Code(s): C90.00 - MULTIPLE MYELOMA NOT HAVING ACHIEVED REMISSION
[2017-06-06] MEDS ORDERED: LIDOCAINE HCL 1%, 10 MG/ML (20ML VIAL) ONE (15:55)
--- NOTE | 2017-06-06 16:55 | PN ---
Progress Note (short form) - Note Progress Note: [facility] Surgery Pt seen and examined. Permacath removed from right IJ No complications. dressing placed. Jayson lemus dO
--- NOTE | 2017-06-06 22:01 | PN ---
Problem List - Problems (1) Constipation by delayed colonic transit Code(s): K59.01 - SLOW TRANSIT CONSTIPATION
--- NOTE | 2017-06-06 22:05 | PN ---
GI Progress Note Subjective: GI NOte: Called for blood in the diaper. Nursing informs me that Rosalia Encarnacion has not had a BM for several days. - Objective Vital Signs: Vital Signs Temperature 97.7 F 06/06/17 19:00 Pulse Rate 94 H 06/06/17 19:00 Respiratory Rate 18 06/06/17 19:00 Blood Pressure 128/82 06/06/17 19:00 O2 Sat by Pulse Oximetry (%) 97 06/06/17 09:35 ...Auscultate: Yes: Hypoactive Bowel Sounds ...Palpate: Yes: Soft, Other (nontender) ...Rectal Exam: Yes: Guaiac Positive, Hemorrhoids/External (tender ext hemorrhoid with bleeding) Labs: CBC, BMP 06/06/17 07:30 06/06/17 07:30 INR, PTT INR 1.09 (0.82-1.09) 05/18/17 01:17 Problem List - Problems (1) Constipation by delayed colonic transit Assessment/Plan: Will increase Miralax to TID and senna for the AM Code(s): K59.01 - SLOW TRANSIT CONSTIPATION (2) Bleeding external hemorrhoids Assessment/Plan: Will order Sitz bath with epsom salt Situation discussed with daughters Code(s): K64.4 - RESIDUAL HEMORRHOIDAL SKIN TAGS
[2017-06-07] MEDS: IPRATROPIUM BR 0.02% 0.5 MG/2.5 ML VIAL.NEB. NEB SCH ×4 (00:24→17:05)
[2017-06-07] MEDS: POLYETHYLENE GLYCOL 3350 119 GM BTL PO SCH ×3 (06:00→21:31)
[2017-06-07 08:28] LABS: HEMOGLOBIN 10.9 GM/dL (10.7-15.3); MCH 28.6 pg (25.7-33.7); MEAN CELL VOLUME 89.5 fl (80-96); MEAN PLT VOLUME 7.2 fl (7.5-11.1); PLATELET COUNT 108 K/MM3 (134-434); RDW 19.3 % (11.6-15.6)
[2017-06-07 09:10] LABS: BLOOD UREA NITROGEN 62 mg/dL (7-18); CHLORIDE 105 mmol/L (98-107); GLUCOSE,RANDOM 66 mg/dL (74-106); POTASSIUM 4.4 mmol/L (3.5-5.1); SODIUM 144 mmol/L (136-145)
[2017-06-07 09:12] LABS: ANION GAP 10 (8-16); CALCIUM 7.4 mg/dL (8.5-10.1); CO2 29 mmol/L (21-32); CREATININE 2.4 mg/dL (0.55-1.02); MAGNESIUM 1.7 mg/dL (1.8-2.4); PHOSPHOROUS 2.4 mg/dL (2.5-4.9)
[2017-06-07] MEDS ORDERED: PT OWN MED DRAWER 7, Y5N ONE (10:24)
[2017-06-07] MEDS: PANTOPRAZOLE 20 MG TABLET (FP) PO SCH (10:36)
[2017-06-07] MEDS: predniSONE 10 MG TABLET (UD) PO SCH (10:37)
[2017-06-07] MEDS: CALCIUM CARBONATE SUSPENSION - 500 MG/5 ML ML PO SCH (10:43)
[2017-06-07] MEDS: ACETAMINOPHEN 650 MG/20.3 ML ORAL SOLUTION (CUPS) PO PRN (10:47)
--- NOTE | 2017-06-07 13:02 | PN ---
Progress Note, Physician History of Present Illness: Pt seen and examined at bedside. She is awake and appears comfortable. Permacath was removed. - Current Medication List Current Medications: Active Medications Acetaminophen (Tylenol Oral Solution -) 325 mg PO Q4H PRN PRN Reason: PAIN Last Admin: 06/07/17 10:47 Dose: 325 mg Calcium Carbonate (Calcium Carb Oral Suspension -) 500 mg PO DAILY [facility] Last Admin: 06/07/17 10:43 Dose: 500 mg Ipratropium [place] (Atrovent 0.02% Nebulizer -) 1 amp NEB QIDR [facility] Last Admin: 06/07/17 11:24 Dose: Not Given Metoprolol Tartrate (Lopressor Injection -) 5 mg IVPUSH Q1H PRN PRN Reason: TACHYCARDIA Ondansetron HCl (Zofran Injection) 4 mg IVPUSH Q6H PRN PRN Reason: NAUSEA AND/OR VOMITING Pantoprazole Sodium (Protonix -) 20 mg PO DAILY [facility] Last Admin: 06/07/17 10:36 Dose: 20 mg Polyethylene Glycol (Miralax (For Daily Use) -) 17 gm PO TID [facility] Last Admin: 06/07/17 06:00 Dose: 17 grams Prednisone (Deltasone -) 10 mg PO DAILY [facility] Last Admin: 06/07/17 10:37 Dose: 10 mg Senna (Senna -) 1 tab PO [facility] - Objective Vital Signs: Vital Signs Temperature 97.7 F 06/07/17 10:28 Pulse Rate 98 H 06/07/17 10:28 Respiratory Rate 20 06/07/17 10:28 Blood Pressure 119/72 06/07/17 10:28 O2 Sat by Pulse Oximetry (%) 94 L 06/07/17 08:09 Constitutional: Yes: Calm Eyes: Yes: Conjunctiva Clear HENT: Yes: Atraumatic Neck: Yes: Supple Cardiovascular: Yes: S1, S2 Respiratory: Yes: CTA Bilaterally Gastrointestinal: Yes: Soft Genitourinary: Yes: WNL Musculoskeletal: Yes: Muscle Weakness Edema: No Neurological: Yes: Confusion Labs: CBC, BMP 06/07/17 06:30 06/07/17 06:30 INR, PTT INR 1.09 (0.82-1.09) 05/18/17 01:17 Problem List - Problems (1) Atrial fibrillation with RVR Code(s): I48.91 - UNSPECIFIED ATRIAL FIBRILLATION (2) Fever and neutropenia Code(s): D70.9 - NEUTROPENIA, UNSPECIFIED; R50.81 - FEVER PRESENTING WITH CONDITIONS CLASSIFIED ELSEWHERE (3) Hyperkalemia, diminished renal excretion Code(s): E87.5 - HYPERKALEMIA (4) Hyponatremia Code(s): E87.1 - HYPO-OSMOLALITY AND HYPONATREMIA (5) Multiple myeloma Code(s): C90.00 - MULTIPLE MYELOMA NOT HAVING ACHIEVED REMISSION (6) Sepsis Code(s): A41.9 - SEPSIS, UNSPECIFIED ORGANISM (7) Multiple myeloma Code(s): C90.00 - MULTIPLE MYELOMA NOT HAVING ACHIEVED REMISSION Qualifiers: Assessment/Plan Current Medications Generic Name Dose Route Start Last Admin Trade Name Freq PRN Reason Stop Dose Admin Acetaminophen 325 mg 06/01/17 10:58 06/07/17 10:47 Tylenol Oral Solution - PO 325 mg Q4H PRN Administration PAIN Calcium Carbonate 500 mg 06/01/17 12:00 06/07/17 10:43 Calcium Carb Oral Suspension - PO 500 mg DAILY [facility] Administration Ipratropium [place] 1 amp 06/02/17 06:00 06/07/17 11:24 Atrovent 0.02% Nebulizer - NEB Not Given QIDR [facility] Metoprolol Tartrate 5 mg 06/02/17 00:48 Lopressor Injection - IVPUSH Q1H PRN TACHYCARDIA Ondansetron HCl 4 mg 06/02/17 00:48 Zofran Injection IVPUSH Q6H PRN NAUSEA AND/OR VOMITING Pantoprazole Sodium 20 mg 06/01/17 10:00 06/07/17 10:36 Protonix - PO 20 mg DAILY [facility] Administration Polyethylene Glycol 17 gm 06/07/17 06:00 06/07/17 06:00 Miralax (For Daily Use) - PO 17 grams TID [facility] Administration Prednisone 10 mg 06/05/17 11:55 06/07/17 10:37 Deltasone - PO 10 mg DAILY [facility] Administration Senna 1 tab 06/07/17 22:00 Senna - PO HS [facility] Impression 1. SHANIA 2. sepsis 3. anemia 4. CKD 5. multiple myeloma 6. malnutrition 7. proteinuria 8. possible hepatocellular disease seen on ultrasound 9. interstitial lung disease 10. hyponatremia 11. hyperkalemia Plan - renal function stable - permacath removed - vargas removed - monitor renal function - cont rehab - avoid nsaids and nephortoxins - discussed with family - encourage PO intake - recommend rehab/pt - will follow Dr Soto
--- NOTE | 2017-06-07 13:03 | PN ---
Progress Note, Physician Chief Complaint: Ms Fuentes is not talking today, daughter is in room and stating patient is having bilateral ear pain and sore throat. - Current Medication List Current Medications: Active Medications Acetaminophen (Tylenol Oral Solution -) 325 mg PO Q4H PRN PRN Reason: PAIN Last Admin: 06/07/17 10:47 Dose: 325 mg Calcium Carbonate (Calcium Carb Oral Suspension -) 500 mg PO DAILY [facility] Last Admin: 06/07/17 10:43 Dose: 500 mg Ipratropium [place] (Atrovent 0.02% Nebulizer -) 1 amp NEB QIDR [facility] Last Admin: 06/07/17 11:24 Dose: Not Given Metoprolol Tartrate (Lopressor Injection -) 5 mg IVPUSH Q1H PRN PRN Reason: TACHYCARDIA Ondansetron HCl (Zofran Injection) 4 mg IVPUSH Q6H PRN PRN Reason: NAUSEA AND/OR VOMITING Pantoprazole Sodium (Protonix -) 20 mg PO DAILY [facility] Last Admin: 06/07/17 10:36 Dose: 20 mg Polyethylene Glycol (Miralax (For Daily Use) -) 17 gm PO TID [facility] Last Admin: 06/07/17 06:00 Dose: 17 grams Prednisone (Deltasone -) 10 mg PO DAILY [facility] Last Admin: 06/07/17 10:37 Dose: 10 mg Senna (Senna -) 1 tab PO HS [facility] - Objective Vital Signs: Vital Signs Temperature 36.5 C 06/07/17 10:28 Pulse Rate 98 H 06/07/17 10:28 Respiratory Rate 20 06/07/17 10:28 Blood Pressure 119/72 06/07/17 10:28 O2 Sat by Pulse Oximetry (%) 94 L 06/07/17 08:09 Constitutional: Yes: No Distress, Calm, Obese HENT: Yes: Atraumatic, Normocephalic Neck: No: Lymphadenopathy Cardiovascular: Yes: Regular Rate and Rhythm. No: Gallop, Murmur, Rub Respiratory: Yes: Regular, CTA Bilaterally. No: Rales, Rhonchi, Wheezes Gastrointestinal: Yes: Normal Bowel Sounds, Soft. No: Distention, Tenderness Extremities: Yes: WNL Edema: No Labs: CBC, BMP 06/07/17 06:30 06/07/17 06:30 INR, PTT INR 1.09 (0.82-1.09) 12/21/17 01:17 Problem List - Problems (1) Septic shock Code(s): A41.9 - SEPSIS, UNSPECIFIED ORGANISM; R65.21 - SEVERE SEPSIS WITH SEPTIC SHOCK (2) Fever and neutropenia Code(s): D70.9 - NEUTROPENIA, UNSPECIFIED; R50.81 - FEVER PRESENTING WITH CONDITIONS CLASSIFIED ELSEWHERE (3) Atrial fibrillation with RVR Code(s): I48.91 - UNSPECIFIED ATRIAL FIBRILLATION (4) Metabolic encephalopathy Code(s): G93.41 - METABOLIC ENCEPHALOPATHY (5) Hyponatremia Code(s): E87.1 - HYPO-OSMOLALITY AND HYPONATREMIA (6) Hypocalcemia Code(s): E83.51 - HYPOCALCEMIA (7) Multiple myeloma Code(s): C90.00 - MULTIPLE MYELOMA NOT HAVING ACHIEVED REMISSION (8) ESRD (end stage renal disease) Code(s): N18.6 - END STAGE RENAL DISEASE Assessment/Plan (1) Septic shock Assessment/Plan -resolved -cultures are negative -s/p full course of antibiotics Code(s): A41.9 - SEPSIS, UNSPECIFIED ORGANISM; R65.21 - SEVERE SEPSIS WITH SEPTIC SHOCK (2) Fever and neutropenia Assessment/Plan: -resolved -normal ANC Code(s): D70.9 - NEUTROPENIA, UNSPECIFIED; R50.81 - FEVER PRESENTING WITH CONDITIONS CLASSIFIED ELSEWHERE (3) Atrial fibrillation with RVR Assessment/Plan: -now in sinus rhythm -not requiring therapy Code(s): I48.91 - UNSPECIFIED ATRIAL FIBRILLATION (4) CKD Assessment/Plan: -stable -permacath removed Code(s): N17.9 - ACUTE KIDNEY FAILURE, UNSPECIFIED (5) Metabolic encephalopathy Assessment/Plan: -resolved Code(s): G93.41 - METABOLIC ENCEPHALOPATHY (6) Hyponatremia Assessment/Plan: -resolved Code(s): E87.1 - HYPO-OSMOLALITY AND HYPONATREMIA (7) Hypocalcemia Assessment/Plan: -monitor Code(s): E83.51 - HYPOCALCEMIA (8) Multiple myeloma Assessment/Plan: -oncology following -patient now endstage -cannot tolerate chemotherapy secondary to multiple comorbidities Code(s): C90.00 - MULTIPLE MYELOMA NOT HAVING ACHIEVED REMISSION (9) Urinary retention -resolved Dispo -plan for discharge in 24-48 hours to SNF placement
[2017-06-07 14:53] LABS: ANISOCYTOSIS 3+; MACROCYTOSIS 0; PLATELET ESTIMATE DECREASED; TARGET CELLS 1+
--- NOTE | 2017-06-07 20:06 | PN ---
Progress Note (short form) - Note Progress Note: Chart reviewed in detail. unchanged. permacath removed. daughter called office this morning, asking for some labs to be done as requested per their doctor whom they take as an OP O/E: General: fatigued HEENT: NCAT Cardiac: rrr Lungs: decreased breath sounds Abdomen: ND NT LE: +1 edema b/l LE. Last Vital Signs Temp Pulse Resp BP Pulse Ox 97.4 F L 85 20 133/77 97 06/06/17 13:50 06/06/17 13:50 06/06/17 13:50 06/06/17 13:50 06/06/17 09:35 CBC, BMP 06/06/17 07:30 06/06/17 07:30 Current Medications Generic Name Dose Route Start Last Admin Trade Name Freq PRN Reason Stop Dose Admin Acetaminophen 325 mg 06/01/17 10:58 06/03/17 10:57 Tylenol Oral Solution - PO 325 mg Q4H PRN Administration PAIN Calcium Carbonate 500 mg 06/01/17 12:00 06/06/17 10:03 Calcium Carb Oral Suspension - PO 500 mg DAILY [facility] Administration Potassium Phosphate 10 mm/ 253.3333 mls @ 62.5 mls/hr 06/06/17 13:35 Dextrose IVPB 06/06/17 17:38 ONCE ONE Ipratropium [place] 1 amp 06/02/17 06:00 06/06/17 11:11 Atrovent 0.02% Nebulizer - NEB Not Given QIDR [facility] Metoprolol Tartrate 5 mg 06/02/17 00:48 Lopressor Injection - IVPUSH Q1H PRN TACHYCARDIA Ondansetron HCl 4 mg 06/02/17 00:48 Zofran Injection IVPUSH Q6H PRN NAUSEA AND/OR VOMITING Pantoprazole Sodium 20 mg 06/01/17 10:00 06/06/17 10:02 Protonix - PO Not Given DAILY [facility] Polyethylene Glycol 17 gm 06/05/17 16:00 06/06/17 10:04 Miralax (For Daily Use) - PO 17 grams DAILY [facility] Administration Prednisone 10 mg 06/05/17 11:55 06/06/17 10:03 Deltasone - PO 10 mg DAILY [facility] Administration 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 now with stable CBC Renal f/u noted permacath removed steroid taper per pulm/primary myeloma markers ordered as requested by family . family aware to f/u in office. Problem List - Problems (1) Atrial fibrillation with RVR Code(s): I48.91 - UNSPECIFIED ATRIAL FIBRILLATION (2) Fever and neutropenia Code(s): D70.9 - NEUTROPENIA, UNSPECIFIED; R50.81 - FEVER PRESENTING WITH CONDITIONS CLASSIFIED ELSEWHERE (3) Acute renal failure Code(s): N17.9 - ACUTE KIDNEY FAILURE, UNSPECIFIED (4) Multiple myeloma Code(s): C90.00 - MULTIPLE MYELOMA NOT HAVING ACHIEVED REMISSION
[2017-06-07] MEDS ORDERED: SENNOSIDES 8.6MG TABLET (FP) PO SCH (22:00)
[2017-06-08] MEDS: IPRATROPIUM BR 0.02% 0.5 MG/2.5 ML VIAL.NEB. NEB SCH ×3 (00:15→16:04)
[2017-06-08] MEDS: POLYETHYLENE GLYCOL 3350 119 GM BTL PO SCH ×2 (06:54→15:48)
[2017-06-08 07:47] LABS: HEMATOCRIT 34.1 % (32.4-45.2); MCHC 32.2 g/dl (32.0-36.0); PLATELET COUNT 123 K/MM3 (134-434); RBC 3.79 M/mm3 (3.60-5.2); RDW 18.7 % (11.6-15.6); WHITE BLOOD COUNT 5.1 K/mm3 (4.0-10.0)
[2017-06-08 09:09] LABS: ANION GAP 6 (8-16); BLOOD UREA NITROGEN 70 mg/dL (7-18); CALCIUM 7.5 mg/dL (8.5-10.1); CHLORIDE 107 mmol/L (98-107); CO2 29 mmol/L (21-32); CREATININE 2.5 mg/dL (0.55-1.02); GLUCOSE,RANDOM 72 mg/dL (74-106); MAGNESIUM 1.9 mg/dL (1.8-2.4); PHOSPHOROUS 2.3 mg/dL (2.5-4.9); POTASSIUM 4.6 mmol/L (3.5-5.1); SODIUM 142 mmol/L (136-145)
[2017-06-08] MEDS ORDERED: PT OWN MED DRAWER 7, Y5N ONE (10:59)
[2017-06-08] MEDS: PANTOPRAZOLE 20 MG TABLET (FP) PO SCH (11:19)
[2017-06-08] MEDS: predniSONE 10 MG TABLET (UD) PO SCH (11:20)
[2017-06-08] MEDS: CALCIUM CARBONATE SUSPENSION - 500 MG/5 ML ML PO SCH (11:20)
[2017-06-08 13:25] LABS: ANISOCYTOSIS 1+; MACROCYTOSIS 0; PLATELET ESTIMATE DECREASED
--- NOTE | 2017-06-08 13:37 | DS ---
Physical Examination Vital Signs: Vital Signs Temperature 36.9 C 06/08/17 05:57 Pulse Rate 88 06/08/17 05:57 Respiratory Rate 20 06/08/17 05:57 Blood Pressure 113/67 06/08/17 05:57 O2 Sat by Pulse Oximetry (%) 96 06/07/17 21:00 Labs: CBC, BMP 06/08/17 06:50 06/08/17 06:50 Discharge Summary Reason For Visit: HYPONATREMIA,FEBRILE NEUTROPENIA,SEVERE SEPSIS Current Active Problems Acute respiratory failure (Acute) Atrial fibrillation with RVR (Acute) Bleeding external hemorrhoids (Acute) Constipation by delayed colonic transit (Acute) ESRD (end stage renal disease) (Acute) Fever and neutropenia (Acute) Hyperkalemia, diminished renal excretion (Acute) Hyponatremia (Acute) Multiple myeloma (Acute) Sepsis (Acute) Sepsis affecting skin (Acute) Septic shock (Acute) Severe sepsis (Acute) Condition: Stable - Instructions Diet, Activity, Other Instructions: regular puree diet with nepro supplements. Up with assistance, further activity per PT at SNF. Outpatient follow up with ENT. Referrals: Arleth Beck MD [Primary Care Provider] - Rhiannon Del Angel MD [Staff Physician] - Darrick Gibson MD [Staff Physician] - Reymundo Soto MD [Staff Physician] - Wally Rowe MD [Staff Physician] - Anastacio Franklin MD [Staff Physician] - Disposition: CUSTODIAL FACILITY - Home Medications Comprehensive Discharge Medication List: Ambulatory Orders Calcium Carbonate Suspension - [Calcium Carb Oral Suspension -] 500 mg PO DAILY ml 06/08/17 Ipratropium 0.02% Nebulizer [Atrovent 0.02% Nebulizer -] 1 amp NEB QIDR amp 04/15 Pantoprazole Sodium [Protonix -] 20 mg PO DAILY tablet.ec 06/08/17 Polyethylene Glycol 3350 [Miralax 119 gm Btl -] 17 gm PO TID bottle 06/08/17 Sennosides [Senna -] 1 tab PO HS tablet 06/08/17
[2017-06-08 15:53] VITALS: BP 112/70; PULSE 110; TEMP 98.2
--- NOTE | 2017-06-08 18:52 | PN ---
Progress Note, Physician History of Present Illness: Pt seen and examined at bedside. She appears comfortable. No great change in status. - Objective Vital Signs: Vital Signs Temperature 98.2 F 06/08/17 14:51 Pulse Rate 110 H 06/08/17 14:51 Respiratory Rate 19 06/08/17 14:51 Blood Pressure 112/70 06/08/17 14:51 O2 Sat by Pulse Oximetry (%) 96 06/08/17 09:00 Constitutional: Yes: Calm Eyes: Yes: Conjunctiva Clear HENT: Yes: Atraumatic Cardiovascular: Yes: S1, S2 Respiratory: Yes: CTA Bilaterally Gastrointestinal: Yes: Soft Genitourinary: Yes: WNL Musculoskeletal: Yes: WNL Edema: No Neurological: Yes: Confusion Labs: CBC, BMP 06/08/17 06:50 06/08/17 06:50 INR, PTT INR 1.09 (0.82-1.09) 05/18/17 01:17 Problem List - Problems (1) Atrial fibrillation with RVR Code(s): I48.91 - UNSPECIFIED ATRIAL FIBRILLATION (2) Fever and neutropenia Code(s): D70.9 - NEUTROPENIA, UNSPECIFIED; R50.81 - FEVER PRESENTING WITH CONDITIONS CLASSIFIED ELSEWHERE (3) Hyperkalemia, diminished renal excretion Code(s): E87.5 - HYPERKALEMIA (4) Hyponatremia Code(s): E87.1 - HYPO-OSMOLALITY AND HYPONATREMIA (5) Multiple myeloma Code(s): C90.00 - MULTIPLE MYELOMA NOT HAVING ACHIEVED REMISSION (6) Sepsis Code(s): A41.9 - SEPSIS, UNSPECIFIED ORGANISM (7) Multiple myeloma Code(s): C90.00 - MULTIPLE MYELOMA NOT HAVING ACHIEVED REMISSION Qualifiers: Assessment/Plan Current Medications Generic Name Dose Route Start Last Admin Trade Name Freq PRN Reason Stop Dose Admin Acetaminophen 325 mg 06/01/17 10:58 06/07/17 10:47 Tylenol Oral Solution - PO 325 mg Q4H PRN Administration PAIN Calcium Carbonate 500 mg 06/01/17 12:00 06/07/17 10:43 Calcium Carb Oral Suspension - PO 500 mg DAILY [facility] Administration Ipratropium [place] 1 amp 06/02/17 06:00 06/07/17 11:24 Atrovent 0.02% Nebulizer - NEB Not Given QIDR [facility] Metoprolol Tartrate 5 mg 06/02/17 00:48 Lopressor Injection - IVPUSH Q1H PRN TACHYCARDIA Ondansetron HCl 4 mg 06/02/17 00:48 Zofran Injection IVPUSH Q6H PRN NAUSEA AND/OR VOMITING Pantoprazole Sodium 20 mg 06/01/17 10:00 06/07/17 10:36 Protonix - PO 20 mg DAILY [facility] Administration Polyethylene Glycol 17 gm 06/07/17 06:00 06/07/17 06:00 Miralax (For Daily Use) - PO 17 grams TID [facility] Administration Prednisone 10 mg 06/05/17 11:55 06/07/17 10:37 Deltasone - PO 10 mg DAILY [facility] Administration Senna 1 tab 06/07/17 22:00 Senna - PO HS [facility] Impression 1. SHANIA 2. sepsis 3. anemia 4. CKD 5. multiple myeloma 6. malnutrition 7. proteinuria 8. possible hepatocellular disease seen on ultrasound 9. interstitial lung disease 10. hyponatremia 11. hyperkalemia Plan - renal function stable - monitor bmp in rehab - discussed with daughters - renal diet - encourage PO intake - recommend rehab/pt - will follow Dr Soto
[2017-06-10 00:07] LABS: FREE KAPPA,SERUM 3032.1 mg/L (3.3-19.4)
== END 2017-06-08 18:16 | DRG 871 ==
LOC: JER 00:38 → JERBED 03:35 → J2W 11:16 → JICU 20:48 → J4S 05-20 23:27 → J5S 06-01 19:39
PROVIDERS: ADMIT Internal Medicine; ATTEND Internal Medicine
PROC: 30233N1 Transfusion of Nonautologous Red Blood Cells into Peripheral Vein, Percutaneous Approach (ICD-10-PCS; 2017-05-19)
PROC: B214YZZ Fluoroscopy of Right Heart using Other Contrast (ICD-10-PCS; 2017-05-25)
PROC: 02H633Z Insertion of Infusion Device into Right Atrium, Percutaneous Approach (ICD-10-PCS; principal; 2017-05-25 13:00)
DX: A41.9 Sepsis, unspecified organism (principal); R65.21 Severe sepsis with septic shock; J96.01 Acute respiratory failure with hypoxia; G93.41 Metabolic encephalopathy; I50.31 Acute diastolic (congestive) heart failure; N18.6 End stage renal disease; J18.9 Pneumonia, unspecified organism; N17.0 Acute kidney failure with tubular necrosis; E87.1 Hypo-osmolality and hyponatremia; C90.00 Multiple myeloma not having achieved remission; E46 Unspecified protein-calorie malnutrition; J84.9 Interstitial pulmonary disease, unspecified; I47.1 Supraventricular tachycardia; E87.0 Hyperosmolality and hypernatremia; E87.2 Acidosis; D61.818 Other pancytopenia; E87.5 Hyperkalemia; I48.91 Unspecified atrial fibrillation; D70.9 Neutropenia, unspecified; Z68.33 Body mass index [BMI] 33.0-33.9, adult; K59.00 Constipation, unspecified; E83.51 Hypocalcemia; R33.9 Retention of urine, unspecified; K64.4 Residual hemorrhoidal skin tags; E87.70 Fluid overload, unspecified; D63.8 Anemia in other chronic diseases classified elsewhere; D69.6 Thrombocytopenia, unspecified; G31.84 Mild cognitive impairment of uncertain or unknown etiology; R19.7 Diarrhea, unspecified; J44.9 Chronic obstructive pulmonary disease, unspecified; E78.5 Hyperlipidemia, unspecified; E86.0 Dehydration
CPT/HCPCS: 36415; 36430; 36511; 36600; 71010-TC; 71250-TC; 74000-TC; 76000-TC; 76775-TC; 76856-TC; 80048; 80053; 80162; 81003; 81015; 82272; 82436; 82533; 82550; 82570; 82607; 82728; 82746; 82784; 82803; 83540; 83550; 83605; 83615; 83735; 83883; 83930; 83935; 84100; 84133; 84155; 84165; 84300; 84439; 84443; 84484; 85025; 85027; 85610; 85730; 86334; 86704; 86706; 86708; 86803; 86850; 86900; 86901; 86922; 87040; 87086; 87177; 87209; 87324; 87340; 87449; 87804; 87899; 93005; 93010; 93306-TC; 94640; 94660; 94760; 97116-GP; 97161-GP; 99282-25; J0885; J1644; P9038; P9058

== ENCOUNTER 2017-06-09 12:40 | Inpatient (IN) | payer OTHER ==
[2017-06-09 13:07] VITALS: BMI 35.2
--- NOTE | 2017-06-09 14:17 | PDOC ---
History of Present Illness - General Chief Complaint: Weakness Stated Complaint: LOW BLOOD PRESSURE Time Seen by Provider: 06/09/17 13:59 Past History - Past Medical History Allergies/Adverse Reactions: Allergies Allergy/AdvReac Type Severity Reaction Status Date / Time aspartame Allergy Verified 06/09/17 13:03 Latex, Natural Rubber Allergy Verified 06/09/17 13:03 Penicillins Allergy Verified 06/09/17 13:03 Home Medications: Ambulatory Orders Calcium Carbonate Suspension - [Calcium Carb Oral Suspension -] 500 mg PO DAILY ml 06/08/17 Ipratropium 0.02% Nebulizer [Atrovent 0.02% Nebulizer -] 1 amp NEB QIDR amp 04/15 Pantoprazole Sodium [Protonix -] 20 mg PO DAILY tablet.ec 06/08/17 Polyethylene Glycol 3350 [Miralax 119 gm Btl -] 17 gm PO TID bottle 06/08/17 Sennosides [Senna -] 1 tab PO HS tablet 06/08/17 Acetaminophen [Tylenol] 650 mg PO QID PRN 06/09/17 Anemia: Yes Asthma: No Cancer: Yes Cardiac Disorders: No CVA: No COPD: Yes CHF: No Dementia: No Diabetes: No GI Disorders: No Disorders: No HTN: No Hypercholesterolemia: Yes Liver Disease: No Seizures: No Thyroid Disease: No Other medical history: osteoarthritis - Immunization History Td Vaccination: Yes (2009) Immunization Up to Date: No - Suicide/Smoking/Psychosocial Hx Smoking History: Unknown if ever smoked Have you smoked in the past 12 months: No Information on smoking cessation initiated: No Hx Alcohol Use: No Drug/Substance Use Hx: No Substance Use Type: None Hx Substance Use Treatment: No *Physical Exam - Vital Signs Last Vital Signs Temp Pulse Resp BP Pulse Ox 99 F 78 20 114/69 98 06/09/17 13:25 06/09/17 13:25 06/09/17 13:25 06/09/17 13:25 06/09/17 13:25
[2017-06-09 15:13] LABS: VENOUS PC02 44.9 mmHg (38-52); VENOUS PH 7.32 (7.32-7.42)
[2017-06-09 15:14] LABS: BASO % 0.5 % (0-2.0); EOS % 0.3 % (0-4.5); HEMOGLOBIN 10.6 GM/dL (10.7-15.3); LYMPH % 24.2 % (8-40); MCH 29.1 pg (25.7-33.7); MCHC 32.1 g/dl (32.0-36.0); MEAN CELL VOLUME 90.7 fl (80-96); MEAN PLT VOLUME 7.9 fl (7.5-11.1); MONO % 8.3 % (3.8-10.2); NEUT % 66.7 % (42.8-82.8); PLATELET COUNT 152 K/MM3 (134-434); RBC 3.64 M/mm3 (3.60-5.2); RDW 18.9 % (11.6-15.6); WHITE BLOOD COUNT 5.6 K/mm3 (4.0-10.0)
[2017-06-09 15:29] LABS: ALBUMIN 2.4 g/dl (3.4-5.0); ANION GAP 11 (8-16); BILIRUBIN,TOTAL 0.4 mg/dL (0.2-1.0); BLOOD UREA NITROGEN 69 mg/dL (7-18); CALCIUM 8.2 mg/dL (8.5-10.1); CHLORIDE 106 mmol/L (98-107); CO2 26 mmol/L (21-32); CREATININE 3.1 mg/dL (0.55-1.02); GLUCOSE,RANDOM 88 mg/dL (74-106); SGPT/ALT 15 U/L (12-78); SODIUM 143 mmol/L (136-145); TOT PROT 6.5 g/dl (6.4-8.2)
[2017-06-09 15:31] LABS: ALK PHOS 62 U/L (45-117); POTASSIUM 4.7 mmol/L (3.5-5.1); SGOT/AST 46 U/L (15-37)
[2017-06-09 16:01] LABS: URINE APPEARANCE CLOUDY; URINE BILIRUBIN NEGATIVE (NEGATIVE); URINE BLOOD 1+ (NEGATIVE); URINE COLOR LTYELLOW; URINE GLUCOSE (UA) NEGATIVE (NEGATIVE); URINE KETONE NEGATIVE (NEGATIVE); URINE LEUK ESTERASE 3+ (NEGATIVE); URINE NITRITE NEGATIVE (NEGATIVE); URINE PROTEIN 2+ (NEGATIVE); URINE UROBILINOGEN NEGATIVE mg/dL (0.2-1.0)
[2017-06-09 16:03] LABS: PROTHROMBIN TIME (PATIENT) 11.3 SEC (9.98-11.88)
[2017-06-09 16:06] LABS: ACTIVATED PTT 25.3 SECONDS (26.9-34.4)
[2017-06-09 16:09] LABS: EPI CELLS RARE /HPF (FEW); URINE BACTERIA FEW /hpf (NONE SEEN); URINE MUCUS RARE
--- NOTE | 2017-06-09 16:27 | PDOC ---
Attending Attestation - HPI HPI: 06/09/17 17:04 The patient is a 81-year-old female, with a significant past medical history of multiple myeloma with spinal cord compression s/p recent RT on chemotherapy, h/ o COPD, hyperlipidemia, presenting to the ED with fever today. The patient was recently admitted to the hospital on 05/18 for pneumonia and was discharged yesterday 06/08 at 7 PM. At the [facility], the patient was noted to have a fever of 99 degrees. Tylenol was administered at the home. On exam, the patient is complaining of right-sided jaw pain that radiates up to her ear. <Breana Wilcox - Last Filed: 06/09/17 17:12> - Resident Resident Name: Bennie Fan - ED Attending Attestation I have performed the following: I have examined & evaluated the patient, The case was reviewed & discussed with the resident, I agree w/resident's findings & plan, Exceptions are as noted - Physicial Exam PE: 06/09/17 19:05 Vitals: Triage Vital signs reviewed General Appearance: no acute distress, well nourished well developed, Head: Atraumatic, Neck: Supple;No Nucal rigidity Chest Wall: Nontender Cardiac: Regular rate and rhythym, no murmurs, no rubs, no gallops, Lungs: Clear to auscultation bilateral, good air movement bilaterally, Abdomen: Soft, non distended, normal bowel sounds, non tender to palpation Extremities: Full range of motion to all extremities, no cyanosis, clubbing, or edema Skin: Warm and dry, no rashes or lesions, no rash, no petechiae - Medical Decision Making 06/09/17 19:04 History examination concerning for early pneumonia versus influenza. Infectious disease has been consulted, recomends Meropenem We'll admit to medicine for further management <Toro Carcamo - Last Filed: 06/09/17 19:07> Heart Score/ECG Review - ECG Intrepretation Comment:: 06/09/17 17:12 EKG performed at 13:17 demonstrates rate of 109 bpm, rhythm of sinus tachycardia , axis is normal. Additional findings include: Inferior infarct, age undetermined. Anterior infarct, age undetermined. <Breana Wilcox - Last Filed: 06/09/17 17:12> Attestations - Attestations 06/09/17 17:06 Documentation prepared by Breana Wilcox, acting as medical or surgical instrument maker for Toro Carcamo MD. <Breana Wilcox - Last Filed: 06/09/17 17:12>
--- NOTE | 2017-06-09 16:28 | PDOC ---
History of Present Illness <Breana Wilcox - Last Filed: 06/09/17 17:05> - General History Source: Family Exam Limitations: No Limitations - History of Present Illness Initial Comments: 06/09/17 17:10 81F with pmh of non-remitting Multiple Myeloma, multiple hospitalizations including a discharge last night after 3 weeks for pneumonia, neutropenic fever and severe sepsis. Patient's daughter says that the patient was sent to rehab after discharge but that she persistently complained of right mandibular angle pain and cough associated with fever of 101.4 brought down with Tylenol to 99. 06/09/17 18:26 <Bennie Fan - Last Filed: 06/09/17 18:55> - General Chief Complaint: Weakness Stated Complaint: LOW BLOOD PRESSURE Time Seen by Provider: 06/09/17 13:59 Past History <Breana Wilcox - Last Filed: 06/09/17 17:05> - Past Medical History Anemia: Yes Asthma: No Cancer: Yes Cardiac Disorders: No CVA: No COPD: Yes CHF: No Dementia: No Diabetes: No GI Disorders: No Disorders: No HTN: No Hypercholesterolemia: Yes Liver Disease: No Seizures: No Thyroid Disease: No Other medical history: osteoarthritis - Immunization History Td Vaccination: Yes (2009) Immunization Up to Date: No - Suicide/Smoking/Psychosocial Hx Smoking History: Unknown if ever smoked Have you smoked in the past 12 months: No Information on smoking cessation initiated: No Hx Alcohol Use: No Drug/Substance Use Hx: No Substance Use Type: None Hx Substance Use Treatment: No <Bennie Fan - Last Filed: 06/09/17 18:55> - Past Medical History Allergies/Adverse Reactions: Allergies Allergy/AdvReac Type Severity Reaction Status Date / Time aspartame Allergy Verified 06/09/17 13:03 Latex, Natural Rubber Allergy Verified 06/09/17 13:03 Penicillins Allergy Verified 06/09/17 13:03 Home Medications: Ambulatory Orders Calcium Carbonate Suspension - [Calcium Carb Oral Suspension -] 500 mg PO DAILY ml 06/08/17 Ipratropium 0.02% Nebulizer [Atrovent 0.02% Nebulizer -] 1 amp NEB QIDR amp 04/15 Pantoprazole Sodium [Protonix -] 20 mg PO DAILY tablet.ec 06/08/17 Polyethylene Glycol 3350 [Miralax 119 gm Btl -] 17 gm PO TID bottle 06/08/17 Sennosides [Senna -] 1 tab PO HS tablet 06/08/17 Acetaminophen [Tylenol] 650 mg PO QID PRN 06/09/17 Review of Systems - Review of Systems Able to Perform ROS?: Yes Constitutional: Yes: Loss of Appetite, Weakness HEENTM: Yes: See HPI Respiratory: Yes: Cough Cardiac (ROS): Yes: Palpitations ABD/GI: No: Symptoms Reported : No: Symptoms Reported Musculoskeletal: Yes: Muscle Pain (generalized) Integumentary: No: Symptoms Reported All Other Systems: Reviewed and Negative <Bennie Fan - Last Filed: 06/09/17 18:55> *Physical Exam - Vital Signs Last Vital Signs Temp Pulse Resp BP Pulse Ox 99.7 F H 96 H 20 100/65 98 06/09/17 15:56 06/09/17 15:56 06/09/17 15:56 06/09/17 15:56 06/09/17 15:56 <Breana Wilcox - Last Filed: 06/09/17 17:05> - Vital Signs Last Vital Signs Temp Pulse Resp BP Pulse Ox 99.7 F H 96 H 20 100/65 98 06/09/17 15:56 06/09/17 15:56 06/09/17 15:56 06/09/17 15:56 06/09/17 15:56 - Physical Exam General Appearance: Yes: Moderate Distress, Obese HEENT: positive: EOMI, SATURNINO Respiratory/Chest: positive: Decreased Breath Sounds. negative: Chest Tender Cardiovascular: positive: Regular Rhythm, S1, S2, Tachycardia Gastrointestinal/Abdominal: positive: Normal Bowel Sounds, Soft, Distended. negative: Tender Extremity: positive: Normal Capillary Refill Integumentary: positive: Normal Color, Dry, Warm Neurologic: positive: Disoriented, Other (anxious affect) <Bennie Fan - Last Filed: 06/09/17 18:55> ED Treatment Course - LABORATORY CBC & Chemistry Diagram: 06/09/17 15:05 06/09/17 15:05 - ADDITIONAL ORDERS Additional order review: Laboratory Results 06/09/17 06/09/17 06/09/17 15:42 15:05 15:05 PT with INR INR PTT (Actin FS) VBG pH POC VBG pCO2 POC VBG pO2 Mixed VBG HCO3 Sodium Potassium Chloride Carbon Dioxide Anion Gap BUN Creatinine Creat Clearance w eGFR Random Glucose Lactic Acid 1.1 Calcium Total Bilirubin AST ALT Alkaline Phosphatase Creatine Kinase Troponin I Total Protein Albumin Urine Color Ltyellow Urine Appearance Cloudy Urine pH 7.0 Ur Specific [place] 1.012 Urine Protein 2+ H Urine Glucose (UA) Negative Urine Ketones Negative Urine Blood 1+ H Urine Nitrite Negative Urine Bilirubin Negative Urine Urobilinogen Negative Ur Leukocyte Esterase 3+ H Urine WBC (Auto) 357 Urine RBC (Auto) 4 Ur Epithelial Cells Rare Urine Bacteria Few Urine Mucus Rare Blood Type O POSITIVE Antibody Screen Negative 06/09/17 06/09/17 06/09/17 15:05 15:05 15:05 PT with INR 11.30 INR 1.00 PTT (Actin FS) 25.3 L VBG pH 7.32 POC VBG pCO2 44.9 D POC VBG pO2 57.0 H D Mixed VBG HCO3 22.9 Sodium Potassium Chloride Carbon Dioxide Anion Gap BUN Creatinine Creat Clearance w eGFR Random Glucose Lactic Acid Calcium Total Bilirubin AST ALT Alkaline Phosphatase Creatine Kinase 20 L Troponin I < 0.02 Total Protein Albumin Urine Color Urine Appearance Urine pH Ur Specific [place] Urine Protein Urine Glucose (UA) Urine Ketones Urine Blood Urine Nitrite Urine Bilirubin Urine Urobilinogen Ur Leukocyte Esterase Urine WBC (Auto) Urine RBC (Auto) Ur Epithelial Cells Urine Bacteria Urine Mucus Blood Type Antibody Screen 06/09/17 15:05 PT with INR INR PTT (Actin FS) VBG pH POC VBG pCO2 POC VBG pO2 Mixed VBG HCO3 Sodium 143 Potassium 4.7 Chloride 106 Carbon Dioxide 26 Anion Gap 11 BUN 69 H Creatinine 3.1 H Creat Clearance w eGFR 14.39 Random Glucose 88 Lactic Acid Calcium 8.2 L Total Bilirubin 0.4 D AST 46 H D ALT 15 Alkaline Phosphatase 62 Creatine Kinase Troponin I Total Protein 6.5 D Albumin 2.4 L Urine Color Urine Appearance Urine pH Ur Specific [place] Urine Protein Urine Glucose (UA) Urine Ketones Urine Blood Urine Nitrite Urine Bilirubin Urine Urobilinogen Ur Leukocyte Esterase Urine WBC (Auto) Urine RBC (Auto) Ur Epithelial Cells Urine Bacteria Urine Mucus Blood Type Antibody Screen 06/09/17 15:05 RBC 3.64 MCV 90.7 MCHC 32.1 RDW 18.9 H MPV 7.9 D Neutrophils % 66.7 Lymphocytes % 24.2 D Monocytes % 8.3 Eosinophils % 0.3 Basophils % 0.5 <BrendenBreana - Last Filed: 06/09/17 17:05> - LABORATORY CBC & Chemistry Diagram: 06/09/17 15:05 06/09/17 15:05 - ADDITIONAL ORDERS Additional order review: Laboratory Results 06/09/17 06/09/17 06/09/17 15:42 15:05 15:05 PT with INR INR PTT (Actin FS) VBG pH POC VBG pCO2 POC VBG pO2 Mixed VBG HCO3 Sodium Potassium Chloride Carbon Dioxide Anion Gap BUN Creatinine Creat Clearance w eGFR Random Glucose Lactic Acid 1.1 Calcium Total Bilirubin AST ALT Alkaline Phosphatase Creatine Kinase Troponin I Total Protein Albumin Urine Color Ltyellow Urine Appearance Cloudy Urine pH 7.0 Ur Specific [place] 1.012 Urine Protein 2+ H Urine Glucose (UA) Negative Urine Ketones Negative Urine Blood 1+ H Urine Nitrite Negative Urine Bilirubin Negative Urine Urobilinogen Negative Ur Leukocyte Esterase 3+ H Urine WBC (Auto) 357 Urine RBC (Auto) 4 Ur Epithelial Cells Rare Urine Bacteria Few Urine Mucus Rare Blood Type O POSITIVE Antibody Screen Negative 06/09/17 06/09/17 06/09/17 15:05 15:05 15:05 PT with INR 11.30 INR 1.00 PTT (Actin FS) 25.3 L VBG pH 7.32 POC VBG pCO2 44.9 D POC VBG pO2 57.0 H D Mixed VBG HCO3 22.9 Sodium Potassium Chloride Carbon Dioxide Anion Gap BUN Creatinine Creat Clearance w eGFR Random Glucose Lactic Acid Calcium Total Bilirubin AST ALT Alkaline Phosphatase Creatine Kinase 20 L Troponin I < 0.02 Total Protein Albumin Urine Color Urine Appearance Urine pH Ur Specific [place] Urine Protein Urine Glucose (UA) Urine Ketones Urine Blood Urine Nitrite Urine Bilirubin Urine Urobilinogen Ur Leukocyte Esterase Urine WBC (Auto) Urine RBC (Auto) Ur Epithelial Cells Urine Bacteria Urine Mucus Blood Type Antibody Screen 06/09/17 15:05 PT with INR INR PTT (Actin FS) VBG pH POC VBG pCO2 POC VBG pO2 Mixed VBG HCO3 Sodium 143 Potassium 4.7 Chloride 106 Carbon Dioxide 26 Anion Gap 11 BUN 69 H Creatinine 3.1 H Creat Clearance w eGFR 14.39 Random Glucose 88 Lactic Acid Calcium 8.2 L Total Bilirubin 0.4 D AST 46 H D ALT 15 Alkaline Phosphatase 62 Creatine Kinase Troponin I Total Protein 6.5 D Albumin 2.4 L Urine Color Urine Appearance Urine pH Ur Specific [place] Urine Protein Urine Glucose (UA) Urine Ketones Urine Blood Urine Nitrite Urine Bilirubin Urine Urobilinogen Ur Leukocyte Esterase Urine WBC (Auto) Urine RBC (Auto) Ur Epithelial Cells Urine Bacteria Urine Mucus Blood Type Antibody Screen 06/09/17 15:05 RBC 3.64 MCV 90.7 MCHC 32.1 RDW 18.9 H MPV 7.9 D Neutrophils % 66.7 Lymphocytes % 24.2 D Monocytes % 8.3 Eosinophils % 0.3 Basophils % 0.5 - RADIOLOGY Radiology Studies Ordered: Category Date Time Status CHEST X-RAY PORTABLE* [RAD] Stat Radiology 06/09/17 14:25 Completed <Bennie Fan - Last Filed: 06/09/17 18:55> Medical Decision Making - Medical Decision Making 06/09/17 16:43 Dr. Moya was paged and notified via phone service. <Breana Wilcox - Last Filed: 06/09/17 17:05> - Medical Decision Making 06/09/17 18:38 Septic [id number] ordered. crx still shows infiltration/atelectasis despite imprvements over previous. aj with bun/cr: 62/3.[address] Moya consulted for antibiotics choice. Patient admitted to med/surg hospitalist service. 06/09/17 18:54 <Bennie Fan - Last Filed: 06/09/17 18:55> *DC/Admit/Observation/Transfer - Attestations Scribe Attestion: 06/09/17 17:04 <Breana Wilcox - Last Filed: 06/09/17 17:05> - Discharge Dispostion Admit: Yes <Bennie Fan - Last Filed: 06/09/17 18:55> Diagnosis at time of Disposition: Pneumonia
[2017-06-09] MEDS ORDERED: SODIUM CHLORIDE 1,000 ML IV STA (16:31)
[2017-06-09] MEDS ORDERED: MEROPENEM 500 MG PUSH 500 MG/10 ML IVPB ONE (16:51)
[2017-06-09] MEDS ORDERED: CEFEPIME HCL 2 GM VIAL (RESTRICTED TO ID) IVPB ONE (17:14)
[2017-06-09] MEDS ORDERED: VANCOMYCIN 1 GRAM (PRE-DOCKED) 1,000 MG/250 ML BAG IVPB ONE ×2 (17:15→17:24)
[2017-06-09] MEDS ORDERED: SODIUM CHLORIDE 1,000 ML IV SCH (17:30)
--- NOTE | 2017-06-09 17:30 | HP ---
CHIEF COMPLAINT: Fever PCP: Dr. Gregorio HISTORY OF PRESENT ILLNESS: Patient is an 81 year old female with a PMHx of Multiple Myeloma with spinal cord compression diagnosed in 2017 on Chemotherapy, CKD, Osteoarthritis discharged yesterday from this hospital for a three week stay secondary to Pneumonia who was sent back over from [facility] due to fevers. Patient's daughter at bedside who reports that last night they reached to [facility] around 21:00 and her vitals revealed a temperature of 99.1. Around 03:00 this morning patient complained that she felt warm but was not given any medications. Around 06:00 this morning patient's temperature was checked and revealed a fever of 100.8 F. Tylenol was given and the temperature resolved. Then at 10:00 this morning her temperature went back up to 101.9, which prompted this hospital visit. Patient's daughter states that the cough started again two days ago and it worsened today. Patient's also complains of lower abdominal pain that started today and hurts only when you palpate it. Otherwise , patient's daughter denies chest pain, palpitations, shortness of breath, nausea, vomiting, dysuria, hematuria, frequency. ER course was notable for: (1)IV Fluids 1 bolus (2) Chest X-ray that revealed Left lower lobe consolidation (3) Blood cultures sent Recent Travel: Denies PAST MEDICAL HISTORY: Multiple Myeloma (diagnosed 2017 last chemo 04/24/17), Osteoarthritis, CKD PAST SURGICAL HISTORY: Laminectomy of T12 (October 2016) Social History: Smoking: Denies Alcohol: Denies Drugs: Denies Family History: Unable to recall Allergies: aspartame Allergy (Verified 06/09/17 13:03) artificial sugar Latex, Natural Rubber Allergy (Verified 06/09/17 13:03) Penicillins Allergy (Verified 06/09/17 13:03) HOME MEDICATIONS: Home Medications Medication Instructions Recorded Calcium Carbonate Suspension - 500 mg PO DAILY ml 06/08/17 [Calcium Carb Oral Suspension -] Ipratropium 0.02% Nebulizer 1 amp NEB QIDR amp 06/08/17 [Atrovent 0.02% Nebulizer -] Pantoprazole Sodium [Protonix -] 20 mg PO DAILY tablet.ec 06/08/17 Polyethylene Glycol 3350 [Miralax 17 gm PO TID bottle 06/08/17 119 gm Btl -] Sennosides [Senna -] 1 tab PO HS tablet 06/08/17 Acetaminophen [Tylenol] 650 mg PO QID PRN 06/09/17 REVIEW OF SYSTEMS CONSTITUTIONAL: fever, chills, generalized weakness Absent: diaphoresis, malaise, loss of appetite, weight change HEENT: Absent: rhinorrhea, nasal congestion, throat pain, throat swelling, difficulty swallowing, mouth swelling, ear pain, eye pain, visual changes CARDIOVASCULAR: Absent: chest pain, syncope, palpitations, irregular heart rate, lightheadedness , peripheral edema RESPIRATORY: cough Absent: shortness of breath, dyspnea with exertion, orthopnea, wheezing, stridor , hemoptysis GASTROINTESTINAL: abdominal pain, abdominal distension Absent: nausea, vomiting, diarrhea, constipation, melena, hematochezia GENITOURINARY: Absent: dysuria, frequency, urgency, hesitancy, hematuria, flank pain, genital pain MUSCULOSKELETAL: Absent: myalgia, arthralgia, joint swelling, back pain, neck pain SKIN: Absent: rash, itching, pallor HEMATOLOGIC/IMMUNOLOGIC: Absent: easy bleeding, easy bruising, lymphadenopathy, frequent infections ENDOCRINE: Absent: unexplained weight gain, unexplained weight loss, heat intolerance, cold intolerance NEUROLOGIC: Absent: headache, focal weakness or paresthesias, dizziness, unsteady gait, seizure, mental status changes, bladder or bowel incontinence PSYCHIATRIC: Absent: anxiety, depression, suicidal or homicidal ideation, hallucinations. PHYSICAL EXAMINATION Vital Signs - 24 hr 06/09/17 06/09/17 06/09/17 12:40 13:25 15:56 Temperature 99 F 99.7 F H Pulse Rate 102 H Pulse Rate [ 78 96 H Apical] Respiratory 18 20 20 Rate Blood Pressure 110/61 Blood Pressure 114/69 100/65 [Left Arm] O2 Sat by Pulse 99 98 98 Oximetry (%) GENERAL: Awake, alert, oriented x2 to person and place but unable to tell time, in mild acute distress. HEAD: Normal with no signs of trauma. EYES: Pupils equal, round and reactive to light, extraocular movements intact, sclera anicteric, conjunctiva clear. EARS, NOSE, THROAT: Oropharynx clear without exudates. Moist mucous membranes. NECK: Normal range of motion, supple without lymphadenopathy, JVD, or masses. LUNGS: Decreased breath sounds throughout lung bases with rhonchi on left bases and anteriorly HEART: Tachycardic with regular rhythm, normal S1 and S2 without murmur, rub or gallop. ABDOMEN: Soft, distended with suprapubic tenderness upon palpation, normoactive bowel sounds, no guarding, no rebound, no masses. No hepatomegaly or splenomegaly. MUSCULOSKELETAL: No CVA tenderness. UPPER EXTREMITIES: No peripheral edema. LOWER EXTREMITIES: 2+ pulses, warm, well-perfused. No calf tenderness. No peripheral edema. NEUROLOGICAL: Cranial nerves II-XII intact. Hard of hearing bilaterally. Normal speech. Motor strength 5/5 bilaterally with sensory intact. No facial assymetry. dp pulses 2+ bilaterally. Knee reflexes 2+ bilaterally. PSYCHIATRIC: Cooperative. Good eye contact. Appropriate mood and affect. SKIN: Warm, dry, normal turgor, no rashes or lesions noted, normal capillary refill. Laboratory Results - last 24 hr 06/09/17 06/09/17 06/09/17 15:05 15:05 15:05 WBC 5.6 RBC 3.64 Hgb 10.6 L Hct 33.0 MCV 90.7 MCH 29.1 MCHC 32.1 RDW 18.9 H Plt Count 152 D MPV 7.9 D Neutrophils % 66.7 Lymphocytes % 24.2 D Monocytes % 8.3 Eosinophils % 0.3 Basophils % 0.5 PT with INR 11.30 INR 1.00 PTT (Actin FS) 25.3 L VBG pH POC VBG pCO2 POC VBG pO2 Mixed VBG HCO3 Sodium 143 Potassium 4.7 Chloride 106 Carbon Dioxide 26 Anion Gap 11 BUN 69 H Creatinine 3.1 H Creat Clearance w eGFR 14.39 Random Glucose 88 Lactic Acid Calcium 8.2 L Total Bilirubin 0.4 D AST 46 H D ALT 15 Alkaline Phosphatase 62 Creatine Kinase Troponin I Total Protein 6.5 D Albumin 2.4 L Urine Color Urine Appearance Urine pH Ur Specific Cameron Urine Protein Urine Glucose (UA) Urine Ketones Urine Blood Urine Nitrite Urine Bilirubin Urine Urobilinogen Ur Leukocyte Esterase Urine WBC (Auto) Urine RBC (Auto) Ur Epithelial Cells Urine Bacteria Urine Mucus Blood Type Antibody Screen 06/09/17 06/09/17 06/09/17 15:05 15:05 15:05 WBC RBC Hgb Hct MCV MCH MCHC RDW Plt Count MPV Neutrophils % Lymphocytes % Monocytes % Eosinophils % Basophils % PT with INR INR PTT (Actin FS) VBG pH 7.32 POC VBG pCO2 44.9 D POC VBG pO2 57.0 H D Mixed VBG HCO3 22.9 Sodium Potassium Chloride Carbon Dioxide Anion Gap BUN Creatinine Creat Clearance w eGFR Random Glucose Lactic Acid 1.1 Calcium Total Bilirubin AST ALT Alkaline Phosphatase Creatine Kinase 20 L Troponin I < 0.02 Total Protein Albumin Urine Color Urine Appearance Urine pH Ur Specific [place] Urine Protein Urine Glucose (UA) Urine Ketones Urine Blood Urine Nitrite Urine Bilirubin Urine Urobilinogen Ur Leukocyte Esterase Urine WBC (Auto) Urine RBC (Auto) Ur Epithelial Cells Urine Bacteria Urine Mucus Blood Type Antibody Screen 06/09/17 06/09/17 15:05 15:42 WBC RBC Hgb Hct MCV MCH MCHC RDW Plt Count MPV Neutrophils % Lymphocytes % Monocytes % Eosinophils % Basophils % PT with INR INR PTT (Actin FS) VBG pH POC VBG pCO2 POC VBG pO2 Mixed VBG HCO3 Sodium Potassium Chloride Carbon Dioxide Anion Gap BUN Creatinine Creat Clearance w eGFR Random Glucose Lactic Acid Calcium Total Bilirubin AST ALT Alkaline Phosphatase Creatine Kinase Troponin I Total Protein Albumin Urine Color Ltyellow Urine Appearance Cloudy Urine pH 7.0 Ur Specific [place] 1.012 Urine Protein 2+ H Urine Glucose (UA) Negative Urine Ketones Negative Urine Blood 1+ H Urine Nitrite Negative Urine Bilirubin Negative Urine Urobilinogen Negative Ur Leukocyte Esterase 3+ H Urine WBC (Auto) 357 Urine RBC (Auto) 4 Ur Epithelial Cells Rare Urine Bacteria Few Urine Mucus Rare Blood Type O POSITIVE Antibody Screen Negative IMAGES Chest X-Ray (06/09/17): Interval better aeration of lung with residual mild bilateral interstitial markings and left lung base consolidation/atelectasis. ASSESSMENT/PLAN: Patient is an 81 year old female who was recently admitted for neutropenic fever discharged yesterday (06/08/17) was found to have fevers of Tmax 101.9 at [facility] and sent here for further evaluation. Patient admitted for further monitoring and management. Sepsis Secondary to UTI -Possibly Superimposed Pneumonia? Patient has history of MM and is immunocompromised and a recent admission to the hospital. Will need to rule out PNA. -Tachycardia >100 w/ Respiratory rate in the 20's. BP's down to the 90's/50's -Urine 3+ LE with >300 WBC -Patient continues to have coughing and fevers at the correction -IV fluids given and responded appropriately. Will continue IV NS @83mls/hr -IV Antibiotics with Cefepime 2gm IV daily. Was recently treated with Meropenem for 7 days due to neutropenic fever. -IV Vancomycin 1000mg. Vanc trough in the morning. 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 Likely SHANIA secondary to hypoperfusion due to low BP and possibly urinary retention -Yesterday 2.5 and today 3.1 -Urine electrolytes ordered -Kidney/Bladder U/S. If Patient has retention, need to consider vargas -Renally dose medications -Avoid nephrotoxic medications -IV NS @83mls/hr -Continue to monitor BMP -Nephrology consult Multiple Myeloma -Followed by Dr. Bello and consult placed -Last chemotherapy 04/24/17 Normocytic Anemia -likely anemia of chronic disease secondary to Multiple Myeloma -Transfuse if hgb <7 -Continue to monitor CBC COPD?- In no acute exacerbation -Patient's daughter reports no history of COPD ever being diagnosed and never smoked -02 sat 97% on 2L -Continue Oxygen to maintain saturation >95% -DuoNebs Q6H PRN F/E/N -IV NS @83mls/hr -Electrolytes wnl -Puree diet Prophylaxis -Moderate risk. Heparin 5000 units SQ Q8H -No GI required Disposition -Spoke to daughter who reports DNR but no paper work. -Will need IV abx for Sepsis and will require minimum 3 night stay Visit type - Emergency Visit Emergency Visit: Yes ED Registration Date: 06/09/17 Care time: The patient presented to the Emergency Department on the above date and was hospitalized for further evaluation of their emergent condition. - New Patient This patient is new to me today: Yes Date on this admission: 06/09/17 - Critical Care Critical Care patient: No
--- NOTE | 2017-06-09 17:33 | PN ---
Progress Note (short form) - Note Progress Note: IDconsult dictated just left yesterday for SNF-myeloma, treated with meropenem for 7 days for neutropenic fever- no source, ckd- required HD- catheter removed , voiding well prior to discharge, no diarrhea daughter noticed coughing fever this am to 101.9 sent back to ED per resident bp 90/60 has responded to IVF she is awake and alert no thrush lungs with decreased bs at bases cor-rrr abd ?palpable bladder ext trace edema CBC, BMP 06/09/17 15:05 06/09/17 15:05 cxray- improved aeration ua with 375 WBC a/p fever not neutropenic UTI, ?HCAP vancomycin 1 gram, level in am cefepime (pen allergy, recent meroopenem) bladder scan, ?retention- may need vargas cultures influenza antigen legionella urinary antigen d/w admitting resident d/w daughter at bedside
[2017-06-09] MEDS ORDERED: CEFEPIME 2 GM/100 ML BAG IVPB ONE (18:33)
[2017-06-09] MEDS ORDERED: ALBUTEROL SO4 2.5/IPRATROPIUM 0.5 INH SOL 3 ML VIAL.NEB. NEB ONE (19:04)
[2017-06-09] MEDS ORDERED: CEFEPIME 2 GM in SODIUM CHLORIDE 100 ML IVPB ONE (20:45)
[2017-06-09] MEDS: SENNOSIDES 8.6MG TABLET (FP) PO SCH (22:46)
[2017-06-09] MEDS: POLYETHYLENE GLYCOL 3350 119 GM BTL PO SCH (22:46)
[2017-06-09] MEDS: HEPARIN NA (PORCINE) 5,000 UNITS/ML 1ML VIAL SQ SCH (23:09)
--- NOTE | 2017-06-09 23:09 | PN ---
Teaching Attending Note Name of Resident: Henny Wolff ATTENDING PHYSICIAN STATEMENT I saw and evaluated the patient. Chart, data, imaging reviewed. I reviewed the resident's note and discussed the case with the resident. I agree with the resident's findings and plan as documented. SUBJECTIVE: 81 year old woman with a PMHx of Multiple Myeloma with spinal cord compression diagnosed in 2016 on Chemotherapy, CKD, Osteoarthritis discharged 2 days ago from this hospital for a stay secondary to Pneumonia who was sent back over from [facility] due to fevers with tmax 101.9F. Previously with neutropenia, now improved. Last chemotherapy was in March. OBJECTIVE: Last Vital Signs Temp Pulse Resp BP Pulse Ox 97.5 F L 145 H 20 129/71 95 06/10/17 02:42 06/10/17 02:42 06/10/17 02:42 06/10/17 02:42 06/09/17 22:00 general -nontoxic appearing, appears chronically ill, heent -no sinus tenderness, moist oral mucosa, + hearing impairment neck -supple cv -s1+s2+ rrr chest cta b/l abdomen - soft, nontender, no masses skin - no rashes noted Abnormal Lab Results 06/09/17 06/09/17 06/09/17 15:05 15:05 15:05 Hgb 10.6 L RDW 18.9 H PTT (Actin FS) 25.3 L POC VBG pO2 BUN 69 H Creatinine 3.1 H Calcium 8.2 L AST 46 H D Creatine Kinase Albumin 2.4 L Urine Protein Urine Blood Ur Leukocyte Esterase 06/09/17 06/09/17 06/09/17 15:05 15:05 15:42 Hgb RDW PTT (Actin FS) POC VBG pO2 57.0 H D BUN Creatinine Calcium AST Creatine Kinase 20 L Albumin Urine Protein 2+ H Urine Blood 1+ H Ur Leukocyte Esterase 3+ H ASSESSMENT AND PLAN: 81 year old woman, immunocompromised, with multiple myeloma on chemotherapy, previously neutropenic recently d/c after tx for PNA. Now with new onset of fever and likely UTI. Pt with allergy to penicillin but tolerated cefepime and meropenem in the past. #Sepsis in an immunocompromised patient 2/2 to UTI vs recurrent PNA. More likely 2/2 UTI as CXR is improved. -send absolute neurtrophil count -IV fluid hydration -renal U/S -Bladder scan for any urinary retention -sputum cx -cefepime, vancomcyin renally dosed -blood cx -Urine cx -ID Consult placed and recommendations appreciated #SHANIA on CKD, CKD 2/2 multiple myeloma. -Kidney/Bladder U/S. If Patient has retention, need to consider vargas -Renally dose medications -Avoid nephrotoxic medications -IV NS @83mls/hr -Continue to monitor BMP -Nephrology consult -continue regualar home medications
[2017-06-10] MEDS: ALBUTEROL SO4 2.5/IPRATROPIUM 0.5 INH SOL 3 ML VIAL.NEB. NEB PRN ×3 (00:43→22:16)
[2017-06-10 03:35] LABS: URINE CREATININE 31.9 mg/dL (20-320)
[2017-06-10] MEDS: HEPARIN NA (PORCINE) 5,000 UNITS/ML 1ML VIAL SQ SCH ×3 (06:00→21:58)
[2017-06-10] MEDS: POLYETHYLENE GLYCOL 3350 119 GM BTL PO SCH ×3 (06:00→22:00)
[2017-06-10 08:18] LABS: ANION GAP 10 (8-16); BLOOD UREA NITROGEN 58 mg/dL (7-18); CHLORIDE 111 mmol/L (98-107); CO2 22 mmol/L (21-32); GLUCOSE,RANDOM 71 mg/dL (74-106); POTASSIUM 3.9 mmol/L (3.5-5.1); SODIUM 143 mmol/L (136-145)
[2017-06-10 08:20] LABS: CALCIUM 7.2 mg/dL (8.5-10.1); CREATININE 2.7 mg/dL (0.55-1.02)
[2017-06-10 08:35] LABS: HEMATOCRIT 31.4 % (32.4-45.2); HEMOGLOBIN 10.2 GM/dL (10.7-15.3); MCH 29.4 pg (25.7-33.7); MCHC 32.4 g/dl (32.0-36.0); MEAN CELL VOLUME 90.7 fl (80-96); MEAN PLT VOLUME 7.4 fl (7.5-11.1); PLATELET COUNT 138 K/MM3 (134-434); RBC 3.47 M/mm3 (3.60-5.2); RDW 18.8 % (11.6-15.6); WHITE BLOOD COUNT 8.8 K/mm3 (4.0-10.0)
[2017-06-10] MEDS ORDERED: CEFEPIME HCL/D5W 2 GM/50 ML BAG IVPB SCH (10:00)
[2017-06-10] MEDS ORDERED: CEFEPIME HCL/D5W 2 GM/50 ML PREMIX IVPB SCH ×2 (10:00)
[2017-06-10] MEDS ORDERED: PT OWN MED DRAWER 7, Y5N ONE (10:09)
--- NOTE | 2017-06-10 10:37 | CONS ---
DATE OF CONSULTATION: DATE OF DICTATION: 06/09/2017 INFECTIOUS DISEASE CONSULTATION REQUESTING PHYSICIAN: The hospitalist's service. HISTORY OF PRESENT ILLNESS: This is an 81-year-old woman. She was just in the hospital from the to June 08. She has a history of multiple myeloma with spinal metastases. She was admitted with febrile neutropenia. She was in the ICU. She has a history of chronic kidney disease. She required hemodialysis acutely that was stopped prior to discharge. SHE HAS A HISTORY OF PENICILLIN ALLERGY. She received 7 days of meropenem, which was discontinued on the . She was stable in the hospital. She was discharged. Her dialysis catheter was pulled, and she was urinating on her own. Per her daughter, she was eating. There was no diarrhea. She was discharged yesterday to the SNF. She had a low-grade fever last night. This morning she had a fever of 101.9, per the daughter, and was brought back to the hospital, where she was noted to have a blood pressure (per report) of 90/60. She received some IV fluids, with a good response. She is hard of hearing, but otherwise awake and alert. The daughter notes she has a chronic cough. PAST MEDICAL HISTORY: Her past medical history is extensive. She has a history of atrial fibrillation. She has a history of multiple myeloma. She last received chemotherapy on April 25. She has a history of radiation therapy for spinal cord compression. She has COPD, hyperlipidemia, osteoarthritis, prior diverticulosis with sigmoid diverticulitis in 2013, chronic kidney disease (she required dialysis on her last admission), osteoarthritis. She has a history of prior back surgery as well. She has had some back stabilization done. SHE HAS A HISTORY WELL OF PENICILLIN ALLERGY, but tolerates cephalosporins and carbapenems. MEDICATIONS: Her medications include Senna, MiraLAX, Protonix, calcium carbonate (she is no longer on calcium carbonate). SOCIAL HISTORY: [facility], she was at home with her family, who are very attentive to her needs. PHYSICAL EXAMINATION: General: She is awake and alert. She is hard of hearing. Vital Signs: Temperature 99.7, pulse 110, blood pressure 105/57, respiratory rate 16. She is saturating 99% on 2 liters. HEENT: She is normocephalic. Her eyes are anicteric. She has no thrush. Neck: Supple. Lungs: Diminished breath sounds at the bases. Heart: Regular rate and rhythm. Abdomen: Soft. She has suprapubic discomfort. I think I can palpate her bladder, which is firm and uncomfortable. Extremities: Trace edema. DIAGNOSTIC STUDIES: Her labs are notable for a white count of 5.6, hemoglobin 10.6, platelets 152. BUN 69, creatinine 3.1. Urinalysis has 3+ leukocyte esterase, with 357 white cells. Urine and blood cultures are pending. Chest x-ray shows improved aeration, with persistent interstitial markings and left basilar atelectasis. ASSESSMENT: In summary, this is an 81-year-old woman. She just yesterday for the half-way facility, with myeloma treated with meropenem for 7 days, with neutropenic fever without source. Antibiotics were discontinued on May 26. She is now readmitted with fever after discharge. She is not neutropenic. Concerns would include possible urinary tract infection, less likely pneumonia with the improving chest x-ray, but would treat her with vancomycin and cefepime, which would cover both urinary tract infection as well as pneumonia. Will check an influenza antigen and a Legionella urinary antigen. Would obtain a bladder scan to see if she needs a F[place]. All of this was discussed with the admitting resident and with the daughter, who is at the bedside. MANDIE FRANK M.D. [id number] MTDD
--- NOTE | 2017-06-10 10:38 | PN ---
Progress Note (short form) - Note Progress Note: c/o urge to urinate but having difficulty. also has productive cough of green sputum. denies CP, SOB, fever, chills, N/V/C/D Current Medications Generic Name Dose Route Start Last Admin Trade Name Freq PRN Reason Stop Dose Admin Albuterol/Ipratropium 1 amp 06/09/17 17:27 06/10/17 08:36 Duoneb - NEB 1 amp Q6H PRN Administration SHORTNESS OF BREATH Calcium Carbonate 500 mg 06/10/17 10:00 Calcium Carb Oral Suspension - PO DAILY [facility] Heparin Sodium (Porcine) 5,000 unit 06/09/17 22:00 06/10/17 06:00 Heparin - SQ Not Given TID TOMÁS Sodium Chloride 1,000 mls @ 83 mls/hr 06/09/17 17:30 06/09/17 20:52 Normal Saline - IV 83 mls/hr ASDIR TOMÁS Administration Cefepime HCl 2 gm in 50 mls @ 100 mls/hr 06/10/17 10:00 Maxipime 2gm Ivpb (Premix) IVPB DAILY [facility] Polyethylene Glycol 17 gm 06/09/17 22:00 06/10/17 06:00 Miralax (For Daily Use) - PO Not Given TID TOMÁS Senna 1 tab 06/09/17 22:00 06/09/17 22:46 Senna - PO Not Given HS TOMÁS Last Vital Signs Temp Pulse Resp BP Pulse Ox 99.0 F 145 H 20 92/57 95 06/10/17 06:00 06/10/17 02:42 06/10/17 06:00 06/10/17 06:00 06/09/17 22:00 General NAD, [place] CV S1 S2 irregular, tachycardic Lungs R base crackles, no wheezing Abdomen +distended, +suprapubic tenderness Extremities no pedal edema CBCD WBC 8.8 K/mm3 (4.0-10.0) D 06/10/17 06:00 RBC 3.47 M/mm3 (3.60-5.2) L 06/10/17 06:00 Hgb 10.2 GM/dL (10.7-15.3) L 06/10/17 06:00 Hct 31.4 % (32.4-45.2) L 06/10/17 06:00 MCV 90.7 fl (80-96) 06/10/17 06:00 MCHC 32.4 g/dl (32.0-36.0) 06/10/17 06:00 RDW 18.8 % (11.6-15.6) H 06/10/17 06:00 Plt Count 138 K/MM3 (134-434) 06/10/17 06:00 MPV 7.4 fl (7.5-11.1) L 06/10/17 06:00 CMP Sodium 143 mmol/L (136-145) 06/10/17 06:00 Potassium 3.9 mmol/L (3.5-5.1) 06/10/17 06:00 Chloride 111 mmol/L (98-107) H 06/10/17 06:00 Carbon Dioxide 22 mmol/L (21-32) 06/10/17 06:00 Anion Gap 10 (8-16) 06/10/17 06:00 BUN 58 mg/dL (7-18) H 06/10/17 06:00 Creatinine 2.7 mg/dL (0.55-1.02) H 06/10/17 06:00 Creat Clearance w eGFR 14.39 (>60) 06/09/17 15:05 Random Glucose 71 mg/dL (74-106) L 06/10/17 06:00 Calcium 7.2 mg/dL (8.5-10.1) L 06/10/17 06:00 Total Bilirubin 0.4 mg/dL (0.2-1.0) D 06/09/17 15:05 AST 46 U/L (15-37) H D 06/09/17 15:05 ALT 15 U/L (12-78) 06/09/17 15:05 Alkaline Phosphatase 62 U/L (45-117) 06/09/17 15:05 Total Protein 6.5 g/dl (6.4-8.2) D 06/09/17 15:05 Albumin 2.4 g/dl (3.4-5.0) L 06/09/17 15:05 CARDIAC ENZYMES Creatine Kinase 20 IU/L (26-192) L 06/09/17 15:05 Troponin I < 0.02 ng/ml (0.00-0.05) 06/09/17 15:05 Microbiology 06/09/17 18:08 Influenza Types A,B Antigen (ROSALINDA) - Final Nasopharyngeal Swab - Final A/P 81yo F with PMH MM not on chemo (last dose 04/14), afib, spinal stenosis, CKD, OA presented to the ER with fever 1. Sepsis due to UTI- possible HCAP. Afebrile here. Tm 101.9 at SNF and tachycardia. s/p Vanco dose in the ER. on Cefipime day 2. saturaitng 98% on 1L NC. ID on board. f/u Cx, urine legionella, mycoplasma 2. Acute on CKD-baseline Cr 2.4-2.5. Fena 5.3. concern for retention. check bladder scan. improved. will d/c IVF. Renal u/s negative for hydro. showing no change from previous. was on intermittent HD last admission. no indication for HD at this time. monitor Cr. avoid nephrotoxic agents 3. Afib- reported as in NSR on recent discharge. currently 114 on my exam. check EKG. [id number] 3. daughter refused NOAC and betablocker in the past. obtain EKG and will re-discuss possibility of requiring rate controlling medications. 4. Pulmonary edema- likely in setting of tachycardia and IVF. will d/c IVF. attempt to control rate. will hold off on lasix at this time with recent SHANIA 5. MM- not on chemo at this time. not neutropenic. outpatinet follow up 6. DVT ppx- hep sq 7. DNR/DNI. spoke with daughter present at bedside. all questions answered. verbalized understanding and agreement [facility] plan Visit type - Emergency Visit Emergency Visit: Yes ED Registration Date: 06/09/17 Care time: The patient presented to the Emergency Department on the above date and was hospitalized for further evaluation of their emergent condition. - New Patient This patient is new to me today: Yes Date on this admission: 06/10/17 - Critical Care Critical Care patient: No - Discharge Referral Referred to [facility] Med P.C.: No
[2017-06-10] MEDS: CALCIUM CARBONATE SUSPENSION - 500 MG/5 ML ML PO SCH (11:02)
--- NOTE | 2017-06-10 11:14 | CON.NEP ---
Consult Consult Specialty:: NEPHROLOGY Reason for Consultation:: ckd/shania - History of Present Illness Chief Complaint: fever History of Present Illness: [facility] and cough. SHe had been in the hospital for protracted stay with pneumonia and SHANIA which required hemodialysis. SHe presents with fever up to 102, some difficulty urinating and a cough. Pt is unable to give a history. So daughter is available to do so. Her creatinine has risen. Patient needs to be reminded to urinate according to daughter - History Source History Provided By: Family Member, Medical Record Limitations to Obtaining History: Dementia - Past Medical History Cardio/Vascular: Yes: Hyperlipdemia Pulmonary: Yes: COPD Gastrointestinal: Yes: Constipation, Diverticulosis (sigmoid diverticulitis in ) Renal/: Yes: Renal Inusuff (on HD), Other (shania in past) Heme/Onc: Yes: Other (multiple myeloma) Musculoskeletal: Yes: Osteoarthritis, Other (T10 compression fracture 03/14) - Alcohol/Substance Use Hx Alcohol Use: No History of Substance Use: reports: None - Smoking History Smoking history: Unknown if ever smoked Have you smoked in the past 12 months: No - Social History Usual Living Arrangement: Other ADL: Family Assistance 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 History of Recent Travel: No Home Medications - Allergies Allergies/Adverse Reactions: Allergies Allergy/AdvReac Type Severity Reaction Status Date / Time aspartame Allergy Verified 06/09/17 13:03 Latex, Natural Rubber Allergy Verified 06/09/17 13:03 Penicillins Allergy Verified 06/09/17 13:03 - Home Medications Home Medications: Ambulatory Orders Calcium Carbonate Suspension - [Calcium Carb Oral Suspension -] 500 mg PO DAILY ml 06/08/17 Ipratropium 0.02% Nebulizer [Atrovent 0.02% Nebulizer -] 1 amp NEB QIDR amp 04/15 Pantoprazole Sodium [Protonix -] 20 mg PO DAILY tablet.ec 06/08/17 Polyethylene Glycol 3350 [Miralax 119 gm Btl -] 17 gm PO TID bottle 06/08/17 Sennosides [Senna -] 1 tab PO HS tablet 06/08/17 Acetaminophen [Tylenol] 650 mg PO QID PRN 06/09/17 Family Disease History - Family Disease History Family Disease History: Diabetes: Mother ( 86. ? dementia), [place]: Sister (2, one 64 with COPD, one sister is breast cancer survivor), Other: Father ( : 71 pulmonary embolism. COPD), Mother, Sister, Daughter (healthy) Review of Systems - Review of Systems Constitutional: reports: Fever Eyes: reports: No Symptoms HENT: reports: No Symptoms Neck: reports: No Symptoms Cardiovascular: reports: No Symptoms Respiratory: reports: Cough Gastrointestinal: reports: No Symptoms Genitourinary: reports: Other (retention) Breasts: reports: No Symptoms Reported Musculoskeletal: reports: No Symptoms Integumentary: reports: No Symptoms Neurological: reports: No Symptoms Endocrine: reports: No Symptoms Hematology/Lymphatic: reports: No Symptoms Psychiatric: reports: No Symptoms Nephrology Consult - Height Height: 5 ft - Weight Weight: 180 lb - BMI Body Mass Index (BMI): 35.2 - Lab Results CBC,BMP: CBC, BMP 06/10/17 06:00 06/10/17 06:00 Anion Gap: Anion Gap Anion Gap 10 (8-16) 06/10/17 06:00 - Imaging Chest X-ray: Report Reviewed (increased markings infiltrate/atelectasis) Ultrasound: Report Reviewed (bilateral increased echogenicity) - Physical Examination Vital Signs: Vital Signs Temperature 98.8 F 06/10/17 11:01 Pulse Rate 111 H 06/10/17 11:01 Respiratory Rate 20 06/10/17 11:01 Blood Pressure 80/60 06/10/17 11:01 O2 Sat by Pulse Oximetry (%) 95 06/09/17 22:00 Constitutional: Yes: Well Nourished, No Distress, Calm Eyes: Yes: Conjunctiva Clear HENT: Yes: Atraumatic, Normocephalic Neck: Yes: Trachea Midline Cardiovascular: Yes: Pulse Irregular Respiratory: Yes: Rales, Wheezes Gastrointestinal: Yes: Normal Bowel Sounds Renal/: Yes: WNL Musculoskeletal: Yes: WNL Extremities: Yes: WNL Edema: Yes Edema: LLE: Trace, RLE: Trace Wound/Incision: Yes: Clean/Dry, Well Approximated Neurological: Yes: Alert, Oriented Psychiatric: Yes: Alert, Oriented Assessment/Plan IMPRESSION SHANIA on CKD with high fena probable urine retention pneumonia ckd MM anemia of chronic disease and MM UTI- may be causing retention PLAN continue current management bladder scan may need a vargas again continue antibiotics blood and urine cultures ekg MV
[2017-06-10] MEDS: CEFEPIME 2 GM in DEXTROSE 5%-WATER - 100 ML IVPB SCH (12:46)
--- NOTE | 2017-06-10 13:13 | CONSULT ---
Consult - text type - Consultation Consultation Note: ONCOLOGY CONSULT NOTE HISTORY OF PRESENT ILLNESS: She is a 81 yr old female with hx of active myeloma and last treatment with chemotherapy was in Apr 2017. She had a protracted admission with pneumonia for a month and was discharged last to a AL. Since then she has had an increasing cough and was admitted with fever upto 101.9. CXR showed a L. LL consolidation. She was started on antibiotics and she is improve since then a/c to the daughter as well. She also ahs a constant cough. The daughter reports she lost her hearing form the antibiotics Recent Travel: Denies PAST MEDICAL HISTORY: Multiple Myeloma (diagnosed 2017 last chemo 04/24/17), Osteoarthritis, CKD PAST SURGICAL HISTORY: Laminectomy of T12 (October 2016) Social History: Smoking: Denies Alcohol: Denies Drugs: Denies Family History: Unable to recall Allergies: aspartame Allergy (Verified 06/09/17 13:03) artificial sugar Latex, Natural Rubber Allergy (Verified 06/09/17 13:03) Penicillins Allergy (Verified 06/09/17 13:03) HOME MEDICATIONS: Home Medications Medication Instructions Recorded Calcium Carbonate Suspension - 500 mg PO DAILY ml 06/08/17 [Calcium Carb Oral Suspension -] Ipratropium 0.02% Nebulizer 1 amp NEB QIDR amp 06/08/17 [Atrovent 0.02% Nebulizer -] Pantoprazole Sodium [Protonix -] 20 mg PO DAILY tablet.ec 06/08/17 Polyethylene Glycol 3350 [Miralax 17 gm PO TID bottle 06/08/17 119 gm Btl -] Sennosides [Senna -] 1 tab PO HS tablet 06/08/17 Acetaminophen [Tylenol] 650 mg PO QID PRN 06/09/17 REVIEW OF SYSTEMS CONSTITUTIONAL: fever, chills, generalized weakness Absent: diaphoresis, malaise, loss of appetite, weight change HEENT: Absent: rhinorrhea, nasal congestion, throat pain, throat swelling, difficulty swallowing, mouth swelling, ear pain, eye pain, visual changes CARDIOVASCULAR: Absent: chest pain, syncope, palpitations, irregular heart rate, lightheadedness , peripheral edema RESPIRATORY: cough Absent: shortness of breath, dyspnea with exertion, orthopnea, wheezing, stridor , hemoptysis GASTROINTESTINAL: abdominal distension Absent: nausea, vomiting, diarrhea, constipation, melena, hematochezia GENITOURINARY: Absent: dysuria, frequency, urgency, hesitancy, hematuria, flank pain, genital pain MUSCULOSKELETAL: Absent: myalgia, arthralgia, joint swelling, back pain, neck pain SKIN: Absent: rash, itching, pallor HEMATOLOGIC/IMMUNOLOGIC: Absent: easy bleeding, easy bruising, lymphadenopathy, frequent infections ENDOCRINE: Absent: unexplained weight gain, unexplained weight loss, heat intolerance, cold intolerance NEUROLOGIC: Absent: headache, focal weakness or paresthesias, dizziness, unsteady gait, seizure, mental status changes, bladder or bowel incontinence PSYCHIATRIC: Absent: anxiety, depression, suicidal or homicidal ideation, hallucinations. PHYSICAL EXAMINATION Vital Signs Period Temp Pulse Resp BP Sys/Saucedo Pulse Ox Last 24 Hr 97.5 F-99.7 F 78-145 16-20 80-129/57-78 95-99 GENERAL: Awake, alert, oriented x2 to person and place but unable to tell time, in mild acute distress. HEAD: Normal with no signs of trauma. EYES: Pupils equal, round and reactive to light, extraocular movements intact, sclera anicteric, conjunctiva clear. EARS, NOSE, THROAT: Oropharynx clear without exudates. Moist mucous membranes. NECK: Normal range of motion, supple without lymphadenopathy, JVD, or masses. LUNGS: bilateral crackles R>L HEART: Tachycardic with regular rhythm, normal S1 and S2 without murmur, rub or gallop. ABDOMEN: Soft, distended normoactive bowel sounds, no guarding, no rebound, no masses. No hepatomegaly or splenomegaly. MUSCULOSKELETAL: No CVA tenderness. UPPER EXTREMITIES: No peripheral edema. LOWER EXTREMITIES: 2+ pulses, warm, well-perfused. No calf tenderness. No peripheral edema. NEUROLOGICAL: Cranial nerves II-XII intact. Hard of hearing bilaterally. Normal speech. Motor strength 5/5 bilaterally with sensory intact. No facial assymetry. dp pulses 2+ bilaterally. Knee reflexes 2+ bilaterally. PSYCHIATRIC: Cooperative. Good eye contact. Appropriate mood and affect. SKIN: Warm, dry, normal turgor, no rashes or lesions noted, normal capillary refill. Active Medications Generic Name Dose Route Start Last Admin Trade Name Freq PRN Reason Stop Dose Admin Albuterol/Ipratropium 1 amp 06/09/17 17:27 01/13/18 08:36 Duoneb - NEB 1 amp Q6H PRN Administration SHORTNESS OF BREATH Calcium Carbonate 500 mg 06/10/17 10:00 06/10/17 11:02 Calcium Carb Oral Suspension - PO 500 mg DAILY TOMÁS Administration Heparin Sodium (Porcine) 5,000 unit 06/09/17 22:00 06/10/17 06:00 Heparin - SQ Not Given TID TOMÁS Cefepime HCl 2 gm/ Dextrose 100 mls @ 200 mls/hr 06/10/17 11:30 06/10/17 12: 46 IVPB 200 mls/hr DAILY TOMÁS Administration Polyethylene Glycol 17 gm 06/09/17 22:00 06/10/17 06:00 Miralax (For Daily Use) - PO Not Given TID TOMÁS Senna 1 tab 06/09/17 22:00 06/09/17 22:46 Senna - PO Not Given HS TOMÁS CBC, BMP 06/10/17 06:00 06/10/17 06:00 Chest X-Ray (06/09/17): Interval better aeration of lung with residual mild bilateral interstitial markings and left lung base consolidation/atelectasis. ASSESSMENT/PLAN: Patient is an 81 year old female who is here with active myeloma and admitted for L. LL pneumonia and is clinically improving on the current antibiotics albeit slowly due to recent long hospitalisations and fraility Pneumonia - cont. cefepime and f/v ID recs SHANIA on CKD- Monitor Myeloma- no active treatment for now when she is infected. We will send a repeat light chains and Quantitative immunoglobulins COPD- continue O2 and nebs
--- NOTE | 2017-06-10 16:28 | EKG ---
Test Reason : Blood Pressure : / mmHG Vent. Rate : 127 BPM Atrial Rate : 127 BPM P-R Int : 124 ms QRS Dur : 068 ms QT Int : 312 ms P-R-T Axes : 040 -03 060 degrees QTc Int : 453 ms SINUS TACHYCARDIA WITH OCCASIONAL PREMATURE VENTRICULAR COMPLEXES NONSPECIFIC T WAVE ABNORMALITY ABNORMAL ECG WHEN COMPARED WITH ECG OF 09-JUN-2017 13:17, PREMATURE VENTRICULAR COMPLEXES ARE NOW PRESENT PREMATURE ATRIAL COMPLEXES ARE NO LONGER PRESENT NONSPECIFIC T WAVE ABNORMALITY, WORSE IN INFERIOR LEADS Confirmed by KARLOS IBRAHIM MD ([id number]) on 06/10/2017 4:27:42 PM Referred By: Jorge Alberto ESCALERA Confirmed By:KARLOS IBRAHIM MD
--- NOTE | 2017-06-10 17:13 | EKG ---
Test Reason : Blood Pressure : / mmHG Vent. Rate : 109 BPM Atrial Rate : 109 BPM P-R Int : 128 ms QRS Dur : 070 ms QT Int : 320 ms P-R-T Axes : 035 -09 068 degrees QTc Int : 430 ms SINUS TACHYCARDIA WITH PREMATURE ATRIAL COMPLEXES INFERIOR INFARCT , AGE UNDETERMINED ANTERIOR INFARCT (CITED ON OR BEFORE 21-MAY-2017) ABNORMAL ECG WHEN COMPARED WITH ECG OF 21-MAY-2017 20:40, SINUS RHYTHM HAS REPLACED ATRIAL FIBRILLATION QRS DURATION HAS DECREASED INFERIOR INFARCT IS NOW PRESENT Confirmed by KARLOS IBRAHIM MD ([id number]) on 06/10/2017 5:13:06 PM Referred By: Confirmed By:KARLOS IBRAHIM MD
[2017-06-10] MEDS: SENNOSIDES 8.6MG TABLET (FP) PO SCH (21:58)
[2017-06-11] MEDS ORDERED: ACETAMINOPHEN 325 MG TABLET (FP) PO ONE (03:31)
[2017-06-11] MEDS: POLYETHYLENE GLYCOL 3350 119 GM BTL PO SCH ×3 (07:00→21:00)
[2017-06-11] MEDS: HEPARIN NA (PORCINE) 5,000 UNITS/ML 1ML VIAL SQ SCH ×3 (07:00→23:35)
[2017-06-11 07:42] LABS: BASO % 0.3 % (0-2.0); EOS % 0.8 % (0-4.5); HEMATOCRIT 30.9 % (32.4-45.2); LYMPH % 21.2 % (8-40); MCH 29.3 pg (25.7-33.7); MCHC 32.5 g/dl (32.0-36.0); MEAN CELL VOLUME 90.1 fl (80-96); MEAN PLT VOLUME 7.1 fl (7.5-11.1); MONO % 7.2 % (3.8-10.2); NEUT % 70.5 % (42.8-82.8); PLATELET COUNT 127 K/MM3 (134-434); RBC 3.43 M/mm3 (3.60-5.2); RDW 18.9 % (11.6-15.6); WHITE BLOOD COUNT 9.1 K/mm3 (4.0-10.0)
[2017-06-11 08:30] LABS: ANION GAP 10 (8-16); BLOOD UREA NITROGEN 62 mg/dL (7-18); CALCIUM 7.2 mg/dL (8.5-10.1); CHLORIDE 113 mmol/L (98-107); CO2 22 mmol/L (21-32); CREATININE 2.7 mg/dL (0.55-1.02); GLUCOSE,RANDOM 70 mg/dL (74-106); POTASSIUM 3.5 mmol/L (3.5-5.1); SODIUM 145 mmol/L (136-145)
--- NOTE | 2017-06-11 09:41 | PN ---
Teaching Attending Note Name of Resident: Henny Wolff ATTENDING PHYSICIAN STATEMENT I saw and evaluated the patient. I reviewed the resident's note and discussed the case with the resident. I agree with the resident's findings and plan as documented. SUBJECTIVE:c/o cough. not productive. denies CP, SOB, fever, chills, N/V/C/D. urinating without difficutly OBJECTIVE: Last Vital Signs Temp Pulse Resp BP Pulse Ox 98.1 F 109 H 20 87/49 95 06/11/17 06:14 06/11/17 06:14 06/11/17 06:14 06/11/17 06:14 06/10/17 22:00 General NAD CV S1 S2 +extra beats. no murmur Lungs crackles R base, no wheezing Abdomen soft NT/ND Extremities no pedal edema ASSESSMENT AND PLAN: 81yo F with PMH MM not on chemo (last dose 04/14), afib, spinal stenosis, CKD, OA presented to the ER with fever 1. Sepsis due to UTI- now with +GPC in Bcx. Tm 101.1. no leukocytosis. slight hypotension this AM. may need to give low dose IVF if does not improve. Vanco level low today. will wait on C&S report to determine if contaminate. on Cefipime day 2. ID on board. f/u Cx, urine legionella, mycoplasma 2. Acute on CKD-baseline Cr 2.4-2.5. Fena 5.3. bladder scan negative for retention. Cr stabilizing. was on intermittent HD last admission. no indication for HD at this time. monitor Cr. avoid nephrotoxic agents 3. Acute hypoxic respiratory distress- +crackles on exam. hesitation giving lasix with kidney fucntion and now hypotension. chest PT. monitor respiratory status. currently 100% on 1.5L NC 4. Afib-NSR at this time. [id number] 3. daughter refused NOAC and betablocker in the past. 5. MM- not on chemo at this time. not neutropenic. outpatient follow up 6. DVT ppx- hep sq 7. DNR/DNI. spoke with daughter present at bedside. all questions answered. verbalized understanding and agreement with plan
[2017-06-11] MEDS: CALCIUM CARBONATE SUSPENSION - 500 MG/5 ML ML PO SCH (10:41)
[2017-06-11] MEDS: LACTOBACILLUS ACIDOPHILUS 1 EACH TAB (FP) PO SCH (10:44)
--- NOTE | 2017-06-11 10:58 | PN ---
Progress Note (short form) - Note Progress Note: RENAL Pt is awake has some heaing impairment makes eye contact daughter present Last Vital Signs Temp Pulse Resp BP Pulse Ox 98.1 F 109 H 20 87/49 95 06/11/17 06:14 06/11/17 06:14 06/11/17 06:14 06/11/17 06:14 06/10/17 22:00 lungs crackles at bases cvs s1s2 rr abd soft, no suprapubic tenderness ext no edema neuro a+ox3 CBC, BMP 06/11/17 06:00 06/11/17 06:00 Current Medications Generic Name Dose Route Start Last Admin Trade Name Freq PRN Reason Stop Dose Admin Albuterol/Ipratropium 1 amp 06/09/17 17:27 06/10/17 22:16 Duoneb - NEB 1 amp Q6H PRN Administration SHORTNESS OF BREATH Calcium Carbonate 500 mg 06/10/17 10:00 06/11/17 10:41 Calcium Carb Oral Suspension - PO 500 mg DAILY TOMÁS Administration Heparin Sodium (Porcine) 5,000 unit 06/09/17 22:00 06/11/17 07:00 Heparin - SQ Not Given TID TOMÁS Cefepime HCl 2 gm/ Dextrose 100 mls @ 200 mls/hr 06/10/17 11:30 06/10/17 12: 46 IVPB 200 mls/hr DAILY TOMÁS Administration Lactobacillus Acidophilus 1 tab 06/11/17 10:30 06/11/17 10:44 Bacid - PO 1 tab DAILY TOMÁS Administration Polyethylene Glycol 17 gm 06/09/17 22:00 06/11/17 07:00 Miralax (For Daily Use) - PO Not Given TID TOMÁS Senna 1 tab 06/09/17 22:00 06/10/17 21:58 Senna - PO 1 tab HS TOMÁS Administration IMPRESSION SHANIA on CKD with high fena probable urine retention pneumonia ckd MM anemia of chronic disease and MM UTI- had bladder scan which showed no PVR. But daughter stated yesterday that she needs to be reminded to urinate PLAN continue current management continue antibiotics to cover UTI and pneumonia await final result of culture coag neg staph lileky contaminant hospice MV
[2017-06-11] MEDS: CEFEPIME 2 GM in DEXTROSE 5%-WATER - 100 ML IVPB SCH (12:26)
--- NOTE | 2017-06-11 12:55 | PN ---
Progress Note (short form) - Note Progress Note: ONCOLOGY CONSULT NOTE HISTORY OF PRESENT ILLNESS: She is a 81 yr old female with hx of active myeloma and last treatment with chemotherapy was in Apr 2017. She had a protracted admission with pneumonia for a month and was discharged last to a PA. Since then she has had an increasing cough and was admitted with fever upto 101.9. CXR showed a L. LL consolidation. She was started on antibiotics and she is improve since then a/c to the daughter as well. She also ahs a constant cough. The daughter reports she lost her hearing form the antibiotics Doing ok today I have met with the daughter and answered all the questions Slight worsening of the myeloma low immunoglobulins contributing to recurrent infections Vital Signs Period Temp Pulse Resp BP Sys/Saucedo Pulse Ox Last 24 Hr 97.5 F-101.1 F 109-132 18-20 87-117/49-70 95-95 sleeping comfortably Active Medications Generic Name Dose Route Start Last Admin Trade Name Freq PRN Reason Stop Dose Admin Albuterol/Ipratropium 1 amp 06/09/17 17:27 06/10/17 22:16 Duoneb - NEB 1 amp Q6H PRN Administration SHORTNESS OF BREATH Calcium Carbonate 500 mg 06/10/17 10:00 06/11/17 10:41 Calcium Carb Oral Suspension - PO 500 mg DAILY TOMÁS Administration Heparin Sodium (Porcine) 5,000 unit 06/09/17 22:00 06/11/17 07:00 Heparin - SQ Not Given TID TOMÁS Cefepime HCl 2 gm/ Dextrose 100 mls @ 200 mls/hr 06/10/17 11:30 06/11/17 12: 26 IVPB 200 mls/hr DAILY TOMÁS Administration Lactobacillus Acidophilus 1 tab 06/11/17 10:30 06/11/17 10:44 Bacid - PO 1 tab DAILY TOMÁS Administration Polyethylene Glycol 17 gm 06/09/17 22:00 06/11/17 07:00 Miralax (For Daily Use) - PO Not Given TID TOMÁS Senna 1 tab 06/09/17 22:00 06/10/17 21:58 Senna - PO 1 tab HS TOMÁS Administration CBC, BMP 06/11/17 06:00 06/11/17 06:00 ASSESSMENT/PLAN: Patient is an 81 year old female who is here with active myeloma and admitted for L. LL pneumonia and is clinically improving on the current antibiotics albeit slowly due to recent long hospitalisations and fraility Pneumonia - cont. cefepime and f/v ID recs Coag negative bacteremia- continue antibiotics SHANIA on CKD- Monitor Myeloma- no active treatment for now when she is infected. COPD- continue O2 and nebs
--- NOTE | 2017-06-11 19:25 | PN ---
Physical Exam: SUBJECTIVE: Patient seen and examined by me at bedside. Fever of Tmax 101.1. Patient was agitated last night but improved from the night before. Otherwise, patient denies chest pain, shortness of breath, headaches, nausea, vomiting, abdominal pain. OBJECTIVE: Vital Signs Period Temp Pulse Resp BP Sys/Saucedo Pulse Ox Last 24 Hr 97.3 F-101.1 F 109-132 18-20 87-117/49-70 95-95 GENERAL: Awake, alert, oriented x2 to person and place but unable to tell time EYES: Pupils equal, round and reactive to light, extraocular movements intact, sclera anicteric, conjunctiva clear. EARS, NOSE, THROAT: Oropharynx clear without exudates. Moist mucous membranes. LUNGS: Decreased breath sounds throughout lung bases with rhonchi on right bases and anteriorly HEART: Tachycardic with regular rhythm, normal S1 and S2 without murmur, rub or gallop. ABDOMEN: Soft, nontender, normoactive bowel sounds, no guarding, no rebound, no masses. No hepatomegaly or splenomegaly. EXTREMITIES: 2+ pulses, warm, well-perfused. No calf tenderness. No peripheral edema. NEUROLOGICAL: Cranial nerves II-XII intact. Hard of hearing bilaterally. Normal speech. Motor strength 5/5 bilaterally with sensory intact. No facial assymetry. dp pulses 2+ bilaterally. Knee reflexes 2+ bilaterally. PSYCHIATRIC: Cooperative. Good eye contact. Appropriate mood and affect. Laboratory Results - last 24 hr 06/11/17 06/11/17 06/11/17 06:00 06:00 06:00 WBC 9.1 RBC 3.43 L Hgb 10.0 L Hct 30.9 L MCV 90.1 MCH 29.3 MCHC 32.5 RDW 18.9 H Plt Count 127 L MPV 7.1 L Neutrophils % 70.5 Lymphocytes % 21.2 Monocytes % 7.2 Eosinophils % 0.8 D Basophils % 0.3 Sodium 145 Potassium 3.5 Chloride 113 H Carbon Dioxide 22 Anion Gap 10 BUN 62 H Creatinine 2.7 H Random Glucose 70 L Calcium 7.2 L Random Vancomycin 12.951 Active Medications Generic Name Dose Route Start Last Admin Trade Name Freq PRN Reason Stop Dose Admin Albuterol/Ipratropium 1 amp 06/09/17 17:27 06/10/17 22:16 Duoneb - NEB 1 amp Q6H PRN Administration SHORTNESS OF BREATH Calcium Carbonate 500 mg 06/10/17 10:00 06/11/17 10:41 Calcium Carb Oral Suspension - PO 500 mg DAILY TOMÁ[facility] Administration Heparin Sodium (Porcine) 5,000 unit 06/09/17 22:00 06/11/17 15:14 Heparin - SQ 5,000 unit TID TOMÁS Administration Cefepime HCl 2 gm/ Dextrose 100 mls @ 200 mls/hr 06/10/17 11:30 06/11/17 12: 26 IVPB 200 mls/hr DAILY TOM[facility] Administration Lactobacillus Acidophilus 1 tab 06/11/17 10:30 06/11/17 10:44 Bacid - PO 1 tab DAILY TOM[facility] Administration Polyethylene Glycol 17 gm 06/09/17 22:00 06/11/17 15:14 Miralax (For Daily Use) - PO Not Given TID TOMÁS Senna 1 tab 06/09/17 22:00 06/10/17 21:58 Senna - PO 1 tab HS TOMÁS Administration IMAGES Chest X-Ray (06/09/17): Interval better aeration of lung with residual mild bilateral interstitial markings and left lung base consolidation/atelectasis. ASSESSMENT/PLAN: Patient is an 81 year old female who was recently admitted for neutropenic fever discharged (06/08/17) was found to have fevers of Tmax 101.9 at [facility] and sent here for further evaluation. Patient admitted for further monitoring and management. Sepsis Secondary to UTI -Possibly Superimposed Pneumonia? Patient has history of MM and is immunocompromised and a recent admission to the hospital. Will need to rule out PNA. -Patient continues to have cough and fever with Tmax last night of 101.1 -Continue Cefepime 2gm IVPB daily and Vancomycin -Urine cultures positive for Gram negative bacteria. 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 Likely SHANIA secondary to hypoperfusion due to low BP and possibly urinary retention -Kidney/Bladder U/S showed no retention -Renally dose medications -Avoid nephrotoxic medications -Continue to monitor BMP -Nephrology on Board and no indication for HD Multiple Myeloma -Followed by Dr. Bello and consult placed -Last chemotherapy 04/24/17 Normocytic Anemia -likely anemia of chronic disease secondary to Multiple Myeloma -Transfuse if hgb <7 -Continue to monitor CBC COPD?- In no acute exacerbation -Patient's daughter reports no history of COPD ever being diagnosed and never smoked -02 sat 97% on 2L -Continue Oxygen to maintain saturation >95% -DuoNebs Q6H PRN F/E/N -On no fluids due to crackles on lung examination -Electrolytes wnl -Puree diet Prophylaxis -Moderate risk. Heparin 5000 units SQ Q8H -No GI required Disposition -DNR/DNI -Will need IV abx for Sepsis and will require minimum 3 night stay Visit type - Emergency Visit Emergency Visit: Yes ED Registration Date: 06/09/17 Care time: The patient presented to the Emergency Department on the above date and was hospitalized for further evaluation of their emergent condition. - New Patient This patient is new to me today: No - Critical Care Critical Care patient: No
--- NOTE | 2017-06-11 21:03 | PN ---
Progress Note, Physician History of Present Illness: Awake but lethargic Hard of hearing Temp 101 overnight BC SCN x1 bottle Urine c/s GNR - Current Medication List Current Medications: Active Medications Albuterol/Ipratropium (Duoneb -) 1 amp NEB Q6H PRN PRN Reason: SHORTNESS OF BREATH Last Admin: 06/10/17 22:16 Dose: 1 amp Calcium Carbonate (Calcium Carb Oral Suspension -) 500 mg PO DAILY [facility] Last Admin: 06/11/17 10:41 Dose: 500 mg Heparin Sodium (Porcine) (Heparin -) 5,000 unit SQ TID [facility] Last Admin: 06/11/17 15:14 Dose: 5,000 unit Cefepime HCl 2 gm/ Dextrose 100 mls @ 200 mls/hr IVPB DAILY [facility] Last Admin: 06/11/17 12:26 Dose: 200 mls/hr Lactobacillus Acidophilus (Bacid -) 1 tab PO DAILY [facility] Last Admin: 06/11/17 10:44 Dose: 1 tab Polyethylene Glycol (Miralax (For Daily Use) -) 17 gm PO TID [facility] Last Admin: 06/11/17 15:14 Dose: Not Given Senna (Senna -) 1 tab PO HS [facility] Last Admin: 06/10/17 21:58 Dose: 1 tab - Objective Vital Signs: Vital Signs Temperature 97.3 F L 06/11/17 18:50 Pulse Rate 119 H 06/11/17 18:50 Respiratory Rate 20 06/11/17 18:50 Blood Pressure 95/61 06/11/17 18:50 O2 Sat by Pulse Oximetry (%) 95 06/11/17 09:00 Constitutional: Yes: No Distress Cardiovascular: Yes: Regular Rate and Rhythm, S1, S2 Respiratory: Yes: Diminished Gastrointestinal: Yes: Normal Bowel Sounds, Soft Edema: No Labs: CBC, BMP 06/11/17 06:00 06/11/17 06:00 INR, PTT INR 1.00 (0.82-1.09) 06/09/17 15:05 Assessment/Plan UTI/Possible sepsis secondary to UTI Azotemia Myeloma PCN allergy Await c/s Continue cefepime Discussed with daughter at bedside
[2017-06-11] MEDS: SENNOSIDES 8.6MG TABLET (FP) PO SCH (23:36)
[2017-06-12] MEDS: POLYETHYLENE GLYCOL 3350 119 GM BTL PO SCH ×3 (07:39→21:58)
[2017-06-12] MEDS: HEPARIN NA (PORCINE) 5,000 UNITS/ML 1ML VIAL SQ SCH ×3 (07:39→21:58)
[2017-06-12 07:58] LABS: HEMATOCRIT 32.3 % (32.4-45.2); HEMOGLOBIN 10.4 GM/dL (10.7-15.3); MCH 29.1 pg (25.7-33.7); MCHC 32.1 g/dl (32.0-36.0); MEAN CELL VOLUME 90.7 fl (80-96); MEAN PLT VOLUME 7.3 fl (7.5-11.1); PLATELET COUNT 135 K/MM3 (134-434); RBC 3.56 M/mm3 (3.60-5.2); RDW 19.7 % (11.6-15.6); WHITE BLOOD COUNT 8.6 K/mm3 (4.0-10.0)
[2017-06-12 08:42] LABS: CHLORIDE 112 mmol/L (98-107); POTASSIUM 3.4 mmol/L (3.5-5.1); SODIUM 146 mmol/L (136-145)
[2017-06-12 09:10] LABS: ANION GAP 16 (8-16); BLOOD UREA NITROGEN 58 mg/dL (7-18); CALCIUM 7.6 mg/dL (8.5-10.1); CO2 18 mmol/L (21-32); CREATININE 2.6 mg/dL (0.55-1.02)
[2017-06-12] MEDS ORDERED: PT OWN MED DRAWER 7, Y5N ONE (09:37)
[2017-06-12 09:39] LABS: GLUCOSE,RANDOM 48 mg/dL (74-106)
[2017-06-12] MEDS: CALCIUM CARBONATE SUSPENSION - 500 MG/5 ML ML PO SCH ×2 (09:59→10:08)
[2017-06-12] MEDS: LACTOBACILLUS ACIDOPHILUS 1 EACH TAB (FP) PO SCH ×2 (09:59→10:07)
[2017-06-12] MEDS: CEFEPIME 2 GM in DEXTROSE 5%-WATER - 100 ML IVPB SCH (09:59)
--- NOTE | 2017-06-12 10:02 | PN ---
Progress Note (short form) - Note Progress Note: has no complaints. per daughter has been refusing to eat/drink anything since yesterday. has been urinating. denies Cp, SOB, fever, chills, N/v/C/D Current Medications Generic Name Dose Route Start Last Admin Trade Name Freq PRN Reason Stop Dose Admin Albuterol/Ipratropium 1 amp 06/09/17 17:27 06/10/17 22:16 Duoneb - NEB 1 amp Q6H PRN Administration SHORTNESS OF BREATH Calcium Carbonate 500 mg 06/10/17 10:00 06/12/17 09:59 Calcium Carb Oral Suspension - PO 500 mg DAILY TOMÁS Administration Heparin Sodium (Porcine) 5,000 unit 06/09/17 22:00 06/12/17 07:39 Heparin - SQ Not Given TID TOMÁS Cefepime HCl 2 gm/ Dextrose 100 mls @ 200 mls/hr 06/10/17 11:30 06/12/17 09: 59 IVPB 200 mls/hr DAILY TOMÁS Administration Lactobacillus Acidophilus 1 tab 06/11/17 10:30 06/12/17 09:59 Bacid - PO 1 tab DAILY TOMÁS Administration Polyethylene Glycol 17 gm 06/09/17 22:00 06/12/17 07:39 Miralax (For Daily Use) - PO Not Given TID TOMÁS Senna 1 tab 06/09/17 22:00 06/11/17 23:36 Senna - PO Not Given HS TOMÁS Last Vital Signs Temp Pulse Resp BP Pulse Ox 97.5 F L 119 H 20 107/54 93 L 06/12/17 07:00 06/12/17 07:00 06/12/17 07:00 06/12/17 07:00 06/11/17 21:00 General NAD CV S1 S2 +extra beats. no murmur Lungs CTA B/L , no wheezing/Rhonchi/rales Abdomen soft NT/ND Extremities no pedal edema CBCD WBC 8.6 K/mm3 (4.0-10.0) 06/12/17 06:00 RBC 3.56 M/mm3 (3.60-5.2) L 06/12/17 06:00 Hgb 10.4 GM/dL (10.7-15.3) L 06/12/17 06:00 Hct 32.3 % (32.4-45.2) L 06/12/17 06:00 MCV 90.7 fl (80-96) 06/12/17 06:00 MCHC 32.1 g/dl (32.0-36.0) 06/12/17 06:00 RDW 19.7 % (11.6-15.6) H 06/12/17 06:00 Plt Count 135 K/MM3 (134-434) 06/12/17 06:00 MPV 7.3 fl (7.5-11.1) L 06/12/17 06:00 CMP Sodium 146 mmol/L (136-145) H 06/12/17 06:00 Potassium 3.4 mmol/L (3.5-5.1) L 06/12/17 06:00 Chloride 112 mmol/L (98-107) H 06/12/17 06:00 Carbon Dioxide 18 mmol/L (21-32) L 06/12/17 06:00 Anion Gap 16 (8-16) 06/12/17 06:00 BUN 58 mg/dL (7-18) H 06/12/17 06:00 Creatinine 2.6 mg/dL (0.55-1.02) H 06/12/17 06:00 Creat Clearance w eGFR 14.39 (>60) 06/09/17 15:05 Calcium 7.6 mg/dL (8.5-10.1) L 06/12/17 06:00 Total Bilirubin 0.4 mg/dL (0.2-1.0) D 06/09/17 15:05 AST 46 U/L (15-37) H D 06/09/17 15:05 ALT 15 U/L (12-78) 06/09/17 15:05 Alkaline Phosphatase 62 U/L (45-117) 06/09/17 15:05 Total Protein 6.5 g/dl (6.4-8.2) D 06/09/17 15:05 Albumin 2.4 g/dl (3.4-5.0) L 06/09/17 15:05 Microbiology 06/09/17 14:39 Blood - Peripheral Venous Blood Culture - Preliminary NO GROWTH OBTAINED AFTER 48 HOURS, INCUBATION TO CONTINUE FOR 3 DAYS. 06/09/17 15:54 Urine - Urine Clean Catch Urine Culture - Preliminary Non Lactose Fermenting Gnb 06/09/17 14:39 Blood - Peripheral Venous Blood Culture - Preliminary Staphylococcus Coagulase Neg 06/09/17 18:08 Nasopharyngeal Swab Influenza Types A,B Antigen (ROSALINDA) - Final 06/09/17 18:08 Nasopharyngeal Swab - Final ASSESSMENT AND PLAN: 81yo F with PMH MM not on chemo (last dose 04/14), afib, spinal stenosis, CKD, OA presented to the ER with fever 1. Sepsis due to UTI- GNR in urine. afebrile. BCX is contaminated. on Cefipime day 3. ID on board. f/u C&S, urine legionella, mycoplasma 2. Acute on CKD-baseline Cr 2.4-2.5. Fena 5.3. slowly improving. good UOP reported by daughter. incontinent. was on intermittent HD last admission. no indication for HD at this time. monitor Cr. avoid nephrotoxic agents 3. hypoglycemia- due to decreased po intake. will start D51/2NS and monitor. encourage po intake. dietary eval 4. hypokalemia- KCl in IVF 5. Tachycardia- possible dehydration. due not believe that her HR is as fast as recorded. on apical 98 taken at bedside. PVC seen on EKG 6. Acute hypoxic respiratory distress- resolved. crackles no longer appreciated. saturating well on 2L NC. 7. Afib-NSR at this time. [id number] 3. daughter refused NOAC and betablocker in the past. 8. MM- not on chemo at this time. not neutropenic. outpatient follow up 9. DVT ppx- hep sq 10. DNR/DNI. spoke with daughter present at bedside. all questions answered. verbalized understanding and agreement with plan Visit type - Emergency Visit Emergency Visit: Yes ED Registration Date: 06/09/17 Care time: The patient presented to the Emergency Department on the above date and was hospitalized for further evaluation of their emergent condition. - New Patient This patient is new to me today: No - Critical Care Critical Care patient: No - Discharge Referral Referred to [facility] No
--- NOTE | 2017-06-12 10:14 | PN ---
Progress Note (short form) - Note Progress Note: Patient seen and examined Seems to understand discussion, but not communicative. Poor p.o. intake Daughter at bedside. Issues and current status discussed with patient and daughter. One positive blood culture for staph coagulase negative and urine for lactose primary care nurse practitioner. On Cefipime. Chronic non-productive cough; Daughter states patient complains of pain on defecation and urination Last Vital Signs Temp Pulse Resp BP Pulse Ox 97.5 F L 119 H 20 107/54 93 L 06/12/17 07:00 06/12/17 07:00 06/12/17 07:00 06/12/17 07:00 06/11/17 21:00 HEENT: SAVANNAH, EOM Intact Oropharynx: No thrush, No mucositis,dry mucous membranes Cor: RSR, No murmurs, No gallops Lungs: poor inspiratory effort, rhonchi diffusely Abd: Soft, Normal bowel sounds, No organomegaly Ext:No significant edema Skin: No rashes, Integument intact CBC, BMP 06/12/17 06:00 06/12/17 06:00 Current Medications Generic Name Dose Route Start Last Admin Trade Name Freq PRN Reason Stop Dose Admin Albuterol/Ipratropium 1 amp 06/09/17 17:27 06/10/17 22:16 Duoneb - NEB 1 amp Q6H PRN Administration SHORTNESS OF BREATH Calcium Carbonate 500 mg 06/10/17 10:00 06/12/17 10:08 Calcium Carb Oral Suspension - PO Not Given DAILY [facility] Heparin Sodium (Porcine) 5,000 unit 06/09/17 22:00 06/12/17 07:39 Heparin - SQ Not Given TID [facility] Cefepime HCl 2 gm/ Dextrose 100 mls @ 200 mls/hr 06/10/17 11:30 06/12/17 09: 59 IVPB 200 mls/hr DAILY TOMÁS Administration Lactobacillus Acidophilus 1 tab 06/11/17 10:30 06/12/17 10:07 Bacid - PO Not Given DAILY TOMÁS Polyethylene Glycol 17 gm 06/09/17 22:00 06/12/17 07:39 Miralax (For Daily Use) - PO Not Given TID TOMÁS Senna 1 tab 06/09/17 22:00 06/11/17 23:36 Senna - PO Not Given [facility] Microbiology 06/09/17 14:39 Blood - Peripheral Venous Blood Culture - Preliminary NO GROWTH OBTAINED AFTER 48 HOURS, INCUBATION TO CONTINUE FOR 3 DAYS. 06/09/17 15:54 Urine - Urine Clean Catch Urine Culture - Preliminary Non Lactose Fermenting Gnb 06/09/17 14:39 Blood - Peripheral Venous Blood Culture - Preliminary Staphylococcus Coagulase Neg Impression:; Myeloma- not in remission-- chemotherapy on hold SHANIA-CKD- needs hydration -- Nephrology f/u UTI- ? sepsis-- await C & S-on Cefipime LLL consolidation-- I.D. follow up SCN in blood culture- contaminant vs. infection Decreased Hearing Non communicative Poor p.o. intake - consider nutrition consult OOB/Bedside P.T.
[2017-06-12] MEDS ORDERED: D5-1/2NS+10 MEQ KCL - 10 MEQ/1,000 ML INFUS.BAG IV SCH (10:30)
--- NOTE | 2017-06-12 14:07 | PN ---
Progress Note, Physician History of Present Illness: Pt seen and examined at bedside. She appears fatigued. - Current Medication List Current Medications: Active Medications Albuterol/Ipratropium (Duoneb -) 1 amp NEB Q6H PRN PRN Reason: SHORTNESS OF BREATH Last Admin: 06/10/17 22:16 Dose: 1 amp Calcium Carbonate (Calcium Carb Oral Suspension -) 500 mg PO DAILY [facility] Last Admin: 06/12/17 10:08 Dose: Not Given Heparin Sodium (Porcine) (Heparin -) 5,000 unit SQ TID [facility] Last Admin: 06/12/17 07:39 Dose: Not Given Cefepime HCl 2 gm/ Dextrose 100 mls @ 200 mls/hr IVPB DAILY [facility] Last Admin: 06/12/17 09:59 Dose: 200 mls/hr Potassium Chloride/Dextrose/Sod Cl (D5-1/2ns+10 Meq Kcl -) 10 meq in 1,000 mls @ 42 mls/hr IV ASDIR [facility] Last Admin: 06/12/17 12:16 Dose: 42 mls/hr Lactobacillus Acidophilus (Bacid -) 1 tab PO DAILY [facility] Last Admin: 06/12/17 10:07 Dose: Not Given Polyethylene Glycol (Miralax (For Daily Use) -) 17 gm PO TID [facility] Last Admin: 06/12/17 07:39 Dose: Not Given Senna (Senna -) 1 tab PO HS [facility] Last Admin: 06/11/17 23:36 Dose: Not Given - Objective Vital Signs: Vital Signs Temperature 97.7 F 06/12/17 10:28 Pulse Rate 111 H 06/12/17 10:28 Respiratory Rate 18 06/12/17 10:28 Blood Pressure 111/69 06/12/17 10:28 O2 Sat by Pulse Oximetry (%) 93 L 06/11/17 21:00 Constitutional: Yes: Calm Eyes: Yes: Conjunctiva Clear HENT: Yes: Atraumatic Cardiovascular: Yes: S1, S2 Respiratory: Yes: On Nasal O2, Rhonchi Gastrointestinal: Yes: Soft Genitourinary: Yes: Incontinence Musculoskeletal: Yes: Muscle Weakness Edema: No Neurological: Yes: Lethargy Labs: CBC, BMP 06/12/17 06:00 06/12/17 06:00 INR, PTT INR 1.00 (0.82-1.09) 06/09/17 15:05 Problem List - Problems (1) CKD (chronic kidney disease) Code(s): N18.9 - CHRONIC KIDNEY DISEASE, UNSPECIFIED (2) Pneumonia Code(s): J18.9 - PNEUMONIA, UNSPECIFIED ORGANISM Assessment/Plan Current Medications Generic Name Dose Route Start Last Admin Trade Name Freq PRN Reason Stop Dose Admin Albuterol/Ipratropium 1 amp 06/09/17 17:27 06/10/17 22:16 Duoneb - NEB 1 amp Q6H PRN Administration SHORTNESS OF BREATH Calcium Carbonate 500 mg 06/10/17 10:00 06/12/17 10:08 Calcium Carb Oral Suspension - PO Not Given DAILY [facility] Heparin Sodium (Porcine) 5,000 unit 06/09/17 22:00 06/12/17 07:39 Heparin - SQ Not Given TID TOMÁS Cefepime HCl 2 gm/ Dextrose 100 mls @ 200 mls/hr 06/10/17 11:30 06/12/17 09: 59 IVPB 200 mls/hr DAILY TOMÁS Administration Potassium Chloride/Dextrose/Sod Cl 10 meq in 1,000 mls @ 42 mls/hr 06/12/17 10 :30 06/12/17 12:16 D5-1/2ns+10 Meq Kcl - IV 42 mls/hr ASDIR TOMÁS Administration Lactobacillus Acidophilus 1 tab 06/11/17 10:30 06/12/17 10:07 Bacid - PO Not Given DAILY [facility] Polyethylene Glycol 17 gm 06/09/17 22:00 06/12/17 07:39 Miralax (For Daily Use) - PO Not Given TID TOMÁS Senna 1 tab 06/09/17 22:00 06/11/17 23:36 Senna - PO Not Given HS TOMÁ[facility] Laboratory Tests 06/12/17 06:00 Sodium 146 H Potassium 3.4 L Impression 1. SHANIA 2. sepsis 3. anemia 4. CKD 5. multiple myeloma 6. malnutrition 7. proteinuria 8. PNA 9. interstitial lung disease 10. hypernatremia 11. hypokalemia Plan - cont with fluids - repeat labs in am - discussed with family - follow cultures - cont abx Dr Soto
--- NOTE | 2017-06-12 14:30 | PN ---
Progress Note (short form) - Note Progress Note: nad daughter concerned about rash +BM wearing a diaper Vital Signs Period Temp Pulse Resp BP Sys/Saucedo Pulse Ox Last 24 Hr 97.3 F-97.7 F 111-119 18-20 95-111/53-69 93 cor-rrr lungs decreased bs at bases abd soft,nt ext trace edema skin- faint erythema mainly located to the creases of the diaper- on the sides and groin and buttocks faint rash on back only- macular, no rash on arms legs or abd or chest CBC, BMP 06/12/17 06:00 06/12/17 06:00 Microbiology 06/09/17 15:54 Urine - Urine Clean Catch Urine Culture - Final Pseudomonas Aeruginosa sensitive to cefepime -spoke to micro 06/09/17 14:39 Blood - Peripheral Venous Blood Culture - Final Staphylococcus Epidermidis 06/09/17 14:39 Blood - Peripheral Venous Blood Culture - Preliminary NO GROWTH OBTAINED AFTER 48 HOURS, INCUBATION TO CONTINUE FOR 3 DAYS. 06/09/17 18:08 Nasopharyngeal Swab Influenza Types A,B Antigen (ROSALINDA) - Final 06/09/17 18:08 Nasopharyngeal Swab - Final a/p fever-pseudomonas UTI blood culture contaminant continue cefepime I think rash is fungal-or heat rash -add nystatin powder myeloma ARF overall doing poorly d/w daughter at bedside
[2017-06-12] MEDS: SENNOSIDES 8.6MG TABLET (FP) PO SCH (21:59)
[2017-06-13] MEDS: POLYETHYLENE GLYCOL 3350 119 GM BTL PO SCH ×3 (07:04→21:57)
[2017-06-13] MEDS: HEPARIN NA (PORCINE) 5,000 UNITS/ML 1ML VIAL SQ SCH ×3 (07:04→21:57)
[2017-06-13 07:51] LABS: HEMATOCRIT 30.2 % (32.4-45.2); HEMOGLOBIN 9.9 GM/dL (10.7-15.3); MCH 29.3 pg (25.7-33.7); MCHC 32.8 g/dl (32.0-36.0); MEAN CELL VOLUME 89.5 fl (80-96); MEAN PLT VOLUME 7.3 fl (7.5-11.1); PLATELET COUNT 138 K/MM3 (134-434); RBC 3.37 M/mm3 (3.60-5.2); RDW 19.5 % (11.6-15.6); WHITE BLOOD COUNT 8.2 K/mm3 (4.0-10.0)
[2017-06-13 08:04] LABS: CHLORIDE 115 mmol/L (98-107); POTASSIUM 3.3 mmol/L (3.5-5.1); SODIUM 148 mmol/L (136-145)
--- NOTE | 2017-06-13 08:08 | PN ---
Physical Exam: SUBJECTIVE: Patient seen and examined by me this AM - Multiple nighttime awakenings with agitation; Refusing PO feeds; Urinating in diaper; One BM yesterday; Still with nonproductive cough. No fever/chills, abdominal pain, N/V - Pt non-verbal; appears notably distressed, possibly due to stress of weekend, inconsolable by daughter OBJECTIVE: Vital Signs Period Temp Pulse Resp BP Sys/Saucedo Pulse Ox Last 24 Hr 97.2 F-98.4 F 111-121 18-20 101-111/60-69 GENERAL: Pt awake, nonverbal; Notable distressed, writhing in bed; Frail, elderly woman HEAD: Normal with no signs of trauma. EYES: PERRL, extraocular movements intact, sclera anicteric, conjunctiva clear. No ptosis. ENT: Ears normal, nares patent, oropharynx clear without exudates, moist mucous membranes. NECK: +JVD 3cm below angle of mandible. Trachea midline, full range of motion, supple. LUNGS: Coarse breath sounds BL. No wheezes, no crackles, no accessory muscle use. HEART: Regular rate and rhythm, S1, S2 without murmur, rub or gallop. ABDOMEN: Soft, nontender, nondistended, normoactive bowel sounds, no guarding, no rebound, no hepatosplenomegaly, no masses. EXTREMITIES: 2+ pulses, warm, well-perfused, no edema. NEUROLOGICAL: Unable to perform. 5/5 strength grossly PSYCH: Nonverbal, appears distressed SKIN: Warm, dry, normal turgor, no rashes or lesions noted Laboratory Results - last 24 hr CBC, BMP 06/13/17 06:00 06/09/17 06/12/17 06/12/17 18:09 06:00 06:00 WBC 8.6 RBC 3.56 L Hgb 10.4 L Hct 32.3 L MCV 90.7 MCH 29.1 MCHC 32.1 RDW 19.7 H Plt Count 135 MPV 7.3 L Sodium 146 H Potassium 3.4 L Chloride 112 H Carbon Dioxide 18 L Anion Gap 16 BUN 58 H Creatinine 2.6 H Random Glucose 48 L* Calcium 7.6 L M.pneumoniae IgM Titer <770 Active Medications Generic Name Dose Route Start Last Admin Trade Name Freq PRN Reason Stop Dose Admin Albuterol/Ipratropium 1 amp 06/09/17 17:27 06/10/17 22:16 Duoneb - NEB 1 amp Q6H PRN Administration SHORTNESS OF BREATH Calcium Carbonate 500 mg 06/10/17 10:00 06/12/17 10:08 Calcium Carb Oral Suspension - PO Not Given DAILY [facility] Heparin Sodium (Porcine) 5,000 unit 06/09/17 22:00 06/13/17 07:04 Heparin - SQ Not Given TID [facility] Cefepime HCl 2 gm/ Dextrose 100 mls @ 200 mls/hr 06/10/17 11:30 06/12/17 09: 59 IVPB 200 mls/hr DAILY [facility] Administration Potassium Chloride/Dextrose/Sod Cl 10 meq in 1,000 mls @ 42 mls/hr 06/12/17 10 :30 06/12/17 12:16 D5-1/2ns+10 Meq Kcl - IV 42 mls/hr ASDIR [facility] Administration Lactobacillus Acidophilus 1 tab 06/11/17 10:30 06/12/17 10:07 Bacid - PO Not Given DAILY [facility] Nystatin 1 applic 06/12/17 15:00 Nystop Powder - TP DAILY [facility] Polyethylene Glycol 17 gm 06/09/17 22:00 06/13/17 07:04 Miralax (For Daily Use) - PO Not Given TID [facility] Senna 1 tab 06/09/17 22:00 06/12/17 21:59 Senna - PO Not Given HS [facility] Microbiology 06/09/17 14:39 Blood - Peripheral Venous Blood Culture - Preliminary NO GROWTH OBTAINED AFTER 72 HOURS, INCUBATION TO CONTINUE FOR 2 DAYS. 06/09/17 15:54 Urine - Urine Clean Catch Urine Culture - Final Pseudomonas Aeruginosa 06/09/17 14:39 Blood - Peripheral Venous Blood Culture - Final Staphylococcus Epidermidis 06/09/17 18:08 Nasopharyngeal Swab Influenza Types A,B Antigen (ROSALINDA) - Final 06/09/17 18:08 Nasopharyngeal Swab - Final Non-con CT 06/13 - Moderate atrophy without evidence of acute intracranial pathology. Diffuse heterogeneous attenuation of the calvarium with multiple small lucent foci and a prominent lucent focus in the left frontal lobe, superiorly measuring 1.4 cm compatible with clinical history of multiple myeloma Bilateral mastoid effusion. Air-fluid level in the sphenoid sinus suggestive of mild acute sinusitis ASSESSMENT/PLAN: 81 yo woman w/ pmh of MM (no longer on chemo as of 04/14), afib, CKD, OA, who initially presented to ED w/ sepsis secondary to UTI after spiking fevers at [place]. Recently more altered per family, likely secondary to infectious source however must r/o all possible etiologies. Pt with poor prognosis given progress of MM. Consider palliation. #Sepsis secondary to UTI - Urine cx + for pseudomonas; No WBC count or fever; - ID consulted, recs appreciated - Trend fever, WBC curve - Day 4 of cefepime for UTI coverage - f/u all cultures, urine Ags - Staph epi + blood cultures likely skin charbel contaminant - F/u CXR AM #Altered mental status - Likely toxic metabolic encephalopathy secondary to UTI ; Possible elements of dehydration, hypoglycemia, intracranial MM - CT negative for bleed; evidence of cranial MM - Neuro checks Q4h - IVFs #SHANIA on CKD - Baseline Cr 2.4-2.5. At baseline, 2.4 today. Good UOP, voiding in diaper - IVFs - Daily BMPs, trend Cr #Hypernatremia - likely hypovolemic. 147 today - Daily BMPs - Increase D51/2NS to 75cc #Hypoglycemia - low 70s today - BGM ACHS, qHS - D51/2 NS 75cc #Hypokalemia - 3.3 this AM. Received 10mg IV x2 KCL; repeat K 3.5 - Daily BMPs - Replete as needed #Sinus tachycardia - likely secondary to sepsis; likely components of dehydration, respiratory distress - Monitor - Serial EKGs #Afib - Currently NSR, CHADsVasc 3 - Daughter refused NOACS, BBs #MM - no longer receiving chemo tx - Heme/onc consulted - palliative care consult placed by Dr. Bello; f/u for plan for family meeting - Intracranial MM noted on non-con CT today #Decreased PO intake -Refusing oral feeds; if still refusing, consider feeding tube vs. parenteral feeds; Puree diet otherwise PPX Heparin Subq FEN D51/2NS 75cc/hr Daily BMPs Puree diet DNR/DNI Plan discussed with attending, Dr. Favian Ribeiro, PGY1 Visit type - Emergency Visit Emergency Visit: Yes ED Registration Date: 06/09/17 Care time: The patient presented to the Emergency Department on the above date and was hospitalized for further evaluation of their emergent condition. - New Patient This patient is new to me today: Yes Date on this admission: 06/13/17 - Critical Care Critical Care patient: No
[2017-06-13 08:12] LABS: ALBUMIN 2.1 g/dl (3.4-5.0); ALK PHOS 60 U/L (45-117); ANION GAP 13 (8-16); BILIRUBIN,TOTAL 0.5 mg/dL (0.2-1.0); BLOOD UREA NITROGEN 54 mg/dL (7-18); CO2 20 mmol/L (21-32); CREATININE 2.4 mg/dL (0.55-1.02); GLUCOSE,RANDOM 74 mg/dL (74-106); MAGNESIUM 1.3 mg/dL (1.8-2.4); PHOSPHOROUS 2.2 mg/dL (2.5-4.9); SGOT/AST 31 U/L (15-37); SGPT/ALT 12 U/L (12-78); TOT PROT 5.8 g/dl (6.4-8.2); URIC ACID 6.8 mg/dL (2.6-7.2)
--- NOTE | 2017-06-13 08:42 | PN ---
Progress Note, Physician Chief Complaint: ID Confused Alert though groaning and unable to answer questions Cefepime based on culture urine day 3 - Current Medication List Current Medications: Active Medications Albuterol/Ipratropium (Duoneb -) 1 amp NEB Q6H PRN PRN Reason: SHORTNESS OF BREATH Last Admin: 06/10/17 22:16 Dose: 1 amp Calcium Carbonate (Calcium Carb Oral Suspension -) 500 mg PO DAILY [facility] Last Admin: 06/12/17 10:08 Dose: Not Given Heparin Sodium (Porcine) (Heparin -) 5,000 unit SQ TID [facility] Last Admin: 06/13/17 07:04 Dose: Not Given Cefepime HCl 2 gm/ Dextrose 100 mls @ 200 mls/hr IVPB DAILY [facility] Last Admin: 06/12/17 09:59 Dose: 200 mls/hr Potassium Chloride/Dextrose/Sod Cl (D5-1/2ns+10 Meq Kcl -) 10 meq in 1,000 mls @ 42 mls/hr IV ASDIR [facility] Last Admin: 06/12/17 12:16 Dose: 42 mls/hr Lactobacillus Acidophilus (Bacid -) 1 tab PO DAILY [facility] Last Admin: 06/12/17 10:07 Dose: Not Given Nystatin (Nystop Powder -) 1 applic TP DAILY [facility] Polyethylene Glycol (Miralax (For Daily Use) -) 17 gm PO TID [facility] Last Admin: 06/13/17 07:04 Dose: Not Given Senna (Senna -) 1 tab PO HS [facility] Last Admin: 06/12/17 21:59 Dose: Not Given - Objective Vital Signs: Vital Signs Temperature 98.4 F 06/13/17 06:00 Pulse Rate 111 H 06/13/17 06:00 Respiratory Rate 20 06/13/17 06:00 Blood Pressure 110/63 06/13/17 06:00 O2 Sat by Pulse Oximetry (%) 93 L 06/11/17 21:00 Constitutional: Yes: Other (Congested) Neck: Yes: WNL, Supple Cardiovascular: Yes: Tachycardia, S1, S2 Respiratory: Yes: WNL, Regular, CTA Bilaterally, Rhonchi Gastrointestinal: Yes: WNL, Normal Bowel Sounds, Soft. No: Splenomegaly, Tenderness, Epigastrium Edema: No Labs: CBC, BMP 06/13/17 06:00 INR, PTT INR 1.00 (0.82-1.09) 06/09/17 15:05 Assessment/Plan Microbiology 06/09/17 15:54 Urine - Urine Clean Catch Urine Culture - Final Pseudomonas Aeruginosa 06/09/17 14:39 Blood - Peripheral Venous Blood Culture - Final Staphylococcus Epidermidis 06/09/17 14:39 Blood - Peripheral Venous Blood Culture - Preliminary NO GROWTH OBTAINED AFTER 72 HOURS, INCUBATION TO CONTINUE FOR 2 DAYS. Laboratory Tests 06/11/17 06/12/17 06/12/17 06:00 06:00 06:00 WBC 8.6 Hgb 10.4 L Hct 32.3 L Plt Count 135 BUN Creatinine Random Glucose 70 L 48 L* 06/13/17 06:00 WBC Hgb Hct Plt Count BUN 54 H Creatinine 2.4 H Random Glucose 74 Assessment Multiple myeloma Recurrent urinary infection pseudomonas Hypoglycmeia Chronic kidney disease Confusion ?etiology Plan Continue current therapy Cefepime
[2017-06-13] MEDS ORDERED: PT OWN MED DRAWER 7, Y5N ONE (09:59)
[2017-06-13] MEDS: POTASSIUM CHLORIDE 10 MEQ in SODIUM CHLORIDE 100 ML IVPB SCH ×3 (11:05→14:48)
[2017-06-13] MEDS: D5-1/2NS+10 MEQ KCL - 10 MEQ/1,000 ML INFUS.BAG IV SCH ×2 (11:05→17:28)
[2017-06-13] MEDS: NYSTATIN POWDER 100,000 UNITS/GM - 15 GM TOPICAL POWDER TP SCH ×2 (11:07→21:57)
[2017-06-13] MEDS: CEFEPIME 2 GM in DEXTROSE 5%-WATER - 100 ML IVPB SCH (11:10)
[2017-06-13] MEDS: LACTOBACILLUS ACIDOPHILUS 1 EACH TAB (FP) PO SCH (11:11)
[2017-06-13] MEDS: CALCIUM CARBONATE SUSPENSION - 500 MG/5 ML ML PO SCH (11:12)
--- NOTE | 2017-06-13 12:23 | EKG ---
Test Reason : Blood Pressure : / mmHG Vent. Rate : 104 BPM Atrial Rate : 104 BPM P-R Int : 142 ms QRS Dur : 078 ms QT Int : 348 ms P-R-T Axes : 060 -03 042 degrees QTc Int : 457 ms SINUS TACHYCARDIA OTHERWISE NORMAL ECG WHEN COMPARED WITH ECG OF 10-JUN-2017 11:49, PREMATURE VENTRICULAR COMPLEXES ARE NO LONGER PRESENT NONSPECIFIC T WAVE ABNORMALITY NO LONGER EVIDENT IN LATERAL LEADS Confirmed by MD Francisco, Garrett ([id number]) on 06/13/2017 12:22:34 PM Referred By: Renea WORTHINGTON Confirmed By:Garrett Singh MD
[2017-06-13 13:02] LABS: ACANTHOCYTES 0; ANISOCYTOSIS 0; HELMET CELLS 0; HOWELL-JOLLY BODIES 0; MACROCYTOSIS 0; OVALOCYTE 0; PLATELET ESTIMATE DECREASED; SICKELED CELLS 0; TARGET CELLS 0; TEAR DROP CELLS 0; TOXIC GRANULATION 0
--- NOTE | 2017-06-13 15:05 | PN ---
Progress Note, Physician History of Present Illness: Pt seen and examined at bedside. She is awake and appears comfortable. - Current Medication List Current Medications: Active Medications Albuterol/Ipratropium (Duoneb -) 1 amp NEB Q6H PRN PRN Reason: SHORTNESS OF BREATH Last Admin: 06/10/17 22:16 Dose: 1 amp Calcium Carbonate (Calcium Carb Oral Suspension -) 500 mg PO DAILY [facility] [place] [place] Last Admin: 06/13/17 11:12 Dose: Not Given Heparin Sodium (Porcine) (Heparin -) 5,000 unit SQ TID [facility] [place] Last Admin: 06/13/17 14:48 Dose: Not Given Cefepime HCl 2 gm/ Dextrose 100 mls @ 200 mls/hr IVPB DAILY [facility] Last Admin: 06/13/17 11:10 Dose: 200 mls/hr Potassium Chloride/Dextrose/Sod Cl (D5-1/2ns+10 Meq Kcl -) 10 meq in 1,000 mls @ 75 mls/hr IV ASDIR [facility] [place] Last Admin: 06/13/17 11:05 Dose: 75 mls/hr Lactobacillus Acidophilus (Bacid -) 1 tab PO DAILY [facility] [place] Last Admin: 06/13/17 11:11 Dose: Not Given Nystatin (Nystop Powder -) 1 applic TP DAILY [facility] [place] Last Admin: 06/13/17 11:07 Dose: 1 applic Polyethylene Glycol (Miralax (For Daily Use) -) 17 gm PO TID [facility] [place] Last Admin: 06/13/17 14:46 Dose: Not Given Senna (Senna -) 1 tab PO HS [facility] [place] Last Admin: 06/12/17 21:59 Dose: Not Given - Objective Vital Signs: Vital Signs Temperature 97.7 F 06/13/17 14:22 Pulse Rate 109 H 06/13/17 14:22 Respiratory Rate 20 06/13/17 14:22 Blood Pressure 107/73 06/13/17 14:22 O2 Sat by Pulse Oximetry (%) 93 L 06/11/17 21:00 Constitutional: Yes: Calm Eyes: Yes: Conjunctiva Clear HENT: Yes: Atraumatic Neck: Yes: Supple Cardiovascular: Yes: S1, S2 Respiratory: Yes: Diminished Gastrointestinal: Yes: Soft Genitourinary: Yes: Incontinence Musculoskeletal: Yes: WNL Edema: No Neurological: Yes: Confusion Labs: CBC, BMP 06/13/17 06:00 06/13/17 06:00 INR, PTT INR 1.00 (0.82-1.09) 06/09/17 15:05 - ....Imaging Cat Scan: Report Reviewed Problem List - Problems (1) CKD (chronic kidney disease) Code(s): N18.9 - CHRONIC KIDNEY DISEASE, UNSPECIFIED (2) Pneumonia Code(s): J18.9 - PNEUMONIA, UNSPECIFIED ORGANISM Assessment/Plan Current Medications Generic Name Dose Route Start Last Admin Trade Name Freq PRN Reason Stop Dose Admin Albuterol/Ipratropium 1 amp 06/09/17 17:27 06/10/17 22:16 Duoneb - NEB 1 amp Q6H PRN Administration SHORTNESS OF BREATH Calcium Carbonate 500 mg 06/10/17 10:00 06/13/17 11:12 Calcium Carb Oral Suspension - PO Not Given DAILY [facility] Heparin Sodium (Porcine) 5,000 unit 06/09/17 22:00 06/13/17 14:48 Heparin - SQ Not Given TID [facility] Cefepime HCl 2 gm/ Dextrose 100 mls @ 200 mls/hr 06/10/17 11:30 06/13/17 11: 10 IVPB 200 mls/hr DAILY [facility] Administration Potassium Chloride/Dextrose/Sod Cl 10 meq in 1,000 mls @ 75 mls/hr 06/13/17 10 :28 06/13/17 11:05 D5-1/2ns+10 Meq Kcl - IV 75 mls/hr ASDIR [facility] Administration Lactobacillus Acidophilus 1 tab 06/11/17 10:30 06/13/17 11:11 Bacid - PO Not Given DAILY [facility] Nystatin 1 applic 06/12/17 15:00 06/13/17 11:07 Nystop Powder - TP 1 applic DAILY [facility] Administration Polyethylene Glycol 17 gm 06/09/17 22:00 06/13/17 14:46 Miralax (For Daily Use) - PO Not Given TID [facility] Senna 1 tab 06/09/17 22:00 06/12/17 21:59 Senna - PO Not Given HS [facility] Impression 1. SHANIA 2. sepsis 3. anemia 4. CKD 5. multiple myeloma 6. malnutrition 7. proteinuria 8. PNA 9. interstitial lung disease 10. hypernatremia 11. hypokalemia Plan - agree with increasing rate of fluids - repeat labs in am - ct head results noted - overall prognosis is poor - stop fluids if clinimix is started - will need to clarify GOC Dr Soto
--- NOTE | 2017-06-13 16:48 | PN ---
Teaching Attending Note Name of Resident: Terence Ribeiro ATTENDING PHYSICIAN STATEMENT Time of evaluation: 10;30 AM I saw and evaluated the patient. I reviewed the resident's note and discussed the case with the resident. I agree with the resident's findings and plan as documented. SUBJECTIVE: Patient seen and examined. Oriented to self, but gets agitated, does not answer questions or follow commands, Unable to do ROS. OBJECTIVE: Vital Signs Period Temp Pulse Resp BP Sys/Saucedo Pulse Ox Last 24 Hr 97.3 F-98.4 F 109-115 20-20 101-117/60-73 95 Intake & Output 06/10/17 06/11/17 06/12/17 06/13/17 23:59 23:59 23:59 23:59 Intake Total 1120 240 168 0 Balance 1120 240 168 0 Weight 180 lb General: lying in bed, intermittent agitation when attempted to examine, mild use of acessory muscles of respiration CVS:S1S2 regular, tachycardic Chest: poor effort, few basilar rales R>L Abdomen: soft, NT, ND, positive bowel sounds extremities: no edema Neuro: Awake, looks when called but does not follow commands, moves all extremities symmetrically, facial symmetry, PERRLA, further exam limited Home Medication List Medication Instructions Recorded Confirmed Type Acetaminophen [Tylenol] 650 mg PO QID PRN 06/09/17 06/09/17 History Active Medications Generic Name Dose Route Start Last Admin Trade Name Freq PRN Reason Stop Dose Admin Albuterol/Ipratropium 1 amp 06/09/17 17:27 06/10/17 22:16 Duoneb - NEB 1 amp Q6H PRN Administration SHORTNESS OF BREATH Calcium Carbonate 500 mg 06/10/17 10:00 06/13/17 11:12 Calcium Carb Oral Suspension - PO Not Given DAILY [facility] Heparin Sodium (Porcine) 5,000 unit 06/09/17 22:00 06/13/17 14:48 Heparin - SQ Not Given TID [facility] Cefepime HCl 2 gm/ Dextrose 100 mls @ 200 mls/hr 06/10/17 11:30 06/13/17 11: 10 IVPB 200 mls/hr DAILY [facility] Administration Potassium Chloride/Dextrose/Sod Cl 10 meq in 1,000 mls @ 75 mls/hr 06/13/17 10 :28 06/13/17 11:05 D5-1/2ns+10 Meq Kcl - IV 75 mls/hr ASDIR [facility] Administration Lactobacillus Acidophilus 1 tab 06/11/17 10:30 06/13/17 11:11 Bacid - PO Not Given DAILY [facility] Nystatin 1 applic 06/12/17 15:00 06/13/17 11:07 Nystop Powder - TP 1 applic DAILY [facility] Administration Polyethylene Glycol 17 gm 06/09/17 22:00 06/13/17 14:46 Miralax (For Daily Use) - PO Not Given TID [facility] Senna 1 tab 06/09/17 22:00 06/12/17 21:59 Senna - PO Not Given HS [facility] Laboratory Results - last 24 hr 06/09/17 06/13/17 06/13/17 18:09 06:00 06:00 WBC 8.2 RBC 3.37 L Hgb 9.9 L Hct 30.2 L MCV 89.5 MCH 29.3 MCHC 32.8 RDW 19.5 H Plt Count 138 MPV 7.3 L Neutrophils % No Result Required. Neutrophils % (Manual) 77.7 Band Neutrophils % 10.6 Lymphocytes % No Result Required. Lymphocytes % (Manual) 4.2 L D Monocytes % (Manual) 4 Eosinophils % (Manual) 0.0 Basophils % (Manual) 0.0 Myelocytes % (Man) 1 D Metamyelocytes 1 Hypochromia 0 Toxic Granulation 0 Dohle Bodies 0 Platelet Estimate Decreased Polychromasia 0 Poikilocytosis 0 Basophilic Stippling 0 Anisocytosis 0 Microcytosis 0 Macrocytosis 0 Spherocytes 0 Sickle Cells 0 Target Cells 0 Tear Drop Cells 0 Ovalocytes 0 Stomatocytes 0 Helmet Cells 0 [place] Bodies 0 [place] Rings 0 [place] Cells 0 Acanthocytes (Spur) 0 Fragmented RBCs 0 Schistocytes 0 Sodium 148 H Potassium 3.3 L Chloride 115 H Carbon Dioxide 20 L Anion Gap 13 BUN 54 H Creatinine 2.4 H Creat Clearance w eGFR 19.33 Random Glucose 74 Uric Acid 6.8 D Calcium 7.0 L Phosphorus 2.2 L Magnesium 1.3 L D Total Bilirubin 0.5 D AST 31 D ALT 12 Alkaline Phosphatase 60 Total Protein 5.8 L Albumin 2.1 L M.pneumoniae IgM Titer <770 Microbiology 06/09/17 18:09 Urine For Antigen Detection Legionella Antigen - Final 06/09/17 18:09 Urine For Antigen Detection Streptococcus pneumoniae Antigen (M - Final 06/09/17 14:39 Blood - Peripheral Venous Blood Culture - Preliminary NO GROWTH OBTAINED AFTER 96 HOURS, INCUBATION TO CONTINUE FOR 1 DAYS. 06/09/17 15:54 Urine - Urine Clean Catch Urine Culture - Final Pseudomonas Aeruginosa 06/09/17 14:39 Blood - Peripheral Venous Blood Culture - Final Staphylococcus Epidermidis 06/09/17 18:08 Nasopharyngeal Swab Influenza Types A,B Antigen (ROSALINDA) - Final 06/09/17 18:08 Nasopharyngeal Swab - Final CT brain- moderate atrophy, multiple lucencies calvarium, left frontal lobe measuring 1.4 cm, mastoid effusion, mild sinusitis EKG sinus tach 104 ASSESSMENT AND PLAN: 81yo F with PMH MM not on chemo (last dose 04/14), afib, spinal stenosis, CKD, OA recent prolonged hospital stay for PNA, when was transiently on HD, presented to the ER with fever, found with pseudomonas UTI. -Sepsis secondary to pseudomonas UTI -staph epidermidis bacteremia, ?contaminant -Acute hypoxic respiratory distress, improved -AMS, ?toxic metabolic encephalopathy from sepsis, dehydration, CT brain with evidence in cranial multiple myeloma -Acute on CKD stage II -Hypernatremia, suspect hypovolumic -Hypoglycemia -Hypokalemia -sinus tachycardia, suspect multifactorial from dehydration, sepsis, malignancy , respiratory symptoms -paroxysmal Atrial fibrillation, NSR currently CHADSvas 3, daughter refused NOAC and beta enmanuel in the past -Multiple myeloma not on chemo at this time Plan: Cefipime day 4, ID input appreciated. Follow up cultures. PNA studies noted. Blood cx noted, discuss with ID if repeat studies and additional work up indicated. Na rising, increase IVF, renal input appreciated, Monitor Na levels. Nutrition input appreciated. Given her agitation, overall declining functional status, would avoid NG placement currently. Nutrition input noted. Discuss with family if agreable to Clinimix, will hold IVF in the case. Creatinine around baseline. CT brain noted. Discussed with Dr. Bello and Dr. Owen, patient with known multiple myeloma with extensive involvement. Not a candidate for treatment at this point, agree with palliative care input and treatment with antibiotics and fluids as able. Check BGM AC and HS. replete lytes prn. On 2L NC, monitor for now, aspiration risk based on her debility and current mental status. Aspiration precuations. Heparin for DVTPpx DNR/DNI. palliative care input to address overall goals of care. Prognosis poor given extensive multiple mylemoma involvement with poor function status, debility and progressive decline in function status. Plan discussed with daughter at bedside in detail, all questions answered.
[2017-06-13 17:44] LABS: ANION GAP 10 (8-16); BLOOD UREA NITROGEN 53 mg/dL (7-18); CALCIUM 7.3 mg/dL (8.5-10.1); CHLORIDE 116 mmol/L (98-107); CO2 21 mmol/L (21-32); CREATININE 2.4 mg/dL (0.55-1.02); GLUCOSE,RANDOM 72 mg/dL (74-106); POTASSIUM 3.5 mmol/L (3.5-5.1); SODIUM 147 mmol/L (136-145)
[2017-06-13] MEDS: ALBUTEROL SO4 2.5/IPRATROPIUM 0.5 INH SOL 3 ML VIAL.NEB. NEB PRN (21:42)
[2017-06-13] MEDS: SENNOSIDES 8.6MG TABLET (FP) PO SCH (21:57)
--- NOTE | 2017-06-13 22:12 | PN ---
Progress Note (short form) - Note Progress Note: pt seen and examined. Pt moaning, unable to obtain ROS. O/E: General: Moaning, awake, non-communicative HEENT: NCAT Lunsg: poor inspiratory effort Cor: tachy cardia Extremeties: +edema Last Vital Signs Temp Pulse Resp BP Pulse Ox 97.7 F 109 H 20 107/73 95 06/13/17 14:22 06/13/17 14:22 06/13/17 14:22 06/13/17 14:22 06/13/17 09:00 CBC, BMP 06/13/17 06:00 06/13/17 16:00 Current Medications Generic Name Dose Route Start Last Admin Trade Name Freq PRN Reason Stop Dose Admin Albuterol/Ipratropium 1 amp 06/09/17 17:27 06/13/17 21:42 Duoneb - NEB 1 amp Q6H PRN Administration SHORTNESS OF BREATH Calcium Carbonate 500 mg 06/10/17 10:00 06/13/17 11:12 Calcium Carb Oral Suspension - PO Not Given DAILY [facility] Heparin Sodium (Porcine) 5,000 unit 06/09/17 22:00 06/13/17 21:57 Heparin - SQ Not Given TID [facility] Cefepime HCl 2 gm/ Dextrose 100 mls @ 200 mls/hr 06/10/17 11:30 06/13/17 11: 10 IVPB 200 mls/hr DAILY [facility] Administration Potassium Chloride/Dextrose/Sod Cl 10 meq in 1,000 mls @ 75 mls/hr 06/13/17 10 :28 06/13/17 17:28 D5-1/2ns+10 Meq Kcl - IV 75 mls/hr ASDIR [facility] Administration Lactobacillus Acidophilus 1 tab 06/11/17 10:30 06/13/17 11:11 Bacid - PO Not Given DAILY [facility] Nystatin 1 applic 06/12/17 15:00 06/13/17 21:57 Nystop Powder - TP Not Given DAILY [facility] Polyethylene Glycol 17 gm 06/09/17 22:00 06/13/17 21:57 Miralax (For Daily Use) - PO Not Given TID [facility] Senna 1 tab 06/09/17 22:00 06/13/17 21:57 Senna - PO Not Given HS [facility] Myeloma- not in remission-- chemotherapy on hold SHANIA-CKD/Lyte derangements- noted Nephrology f/u UTI/LLL consolidation/bactermia-- per I.D. transfusions as needed AMS: ?toxic metabolic per daughters, Pal care family meeting today rest per primary
[2017-06-14] MEDS: POLYETHYLENE GLYCOL 3350 119 GM BTL PO SCH ×3 (06:20→21:28)
[2017-06-14] MEDS: HEPARIN NA (PORCINE) 5,000 UNITS/ML 1ML VIAL SQ SCH ×3 (06:20→21:28)
[2017-06-14] MEDS ORDERED: PT OWN MED DRAWER 7, Y5N ONE ×2 (06:58→09:42)
[2017-06-14 07:52] LABS: BASO % 0.5 % (0-2.0); EOS % 0.7 % (0-4.5); HEMATOCRIT 28.6 % (32.4-45.2); HEMOGLOBIN 9.2 GM/dL (10.7-15.3); LYMPH % 26.2 % (8-40); MCH 28.8 pg (25.7-33.7); MCHC 32.1 g/dl (32.0-36.0); MEAN CELL VOLUME 89.9 fl (80-96); MEAN PLT VOLUME 7.3 fl (7.5-11.1); MONO % 9.2 % (3.8-10.2); NEUT % 63.4 % (42.8-82.8); PLATELET COUNT 134 K/MM3 (134-434); RBC 3.18 M/mm3 (3.60-5.2); RDW 19.7 % (11.6-15.6); WHITE BLOOD COUNT 8.5 K/mm3 (4.0-10.0)
[2017-06-14 08:10] LABS: INR 1.16 (0.82-1.09); PROTHROMBIN TIME (PATIENT) 13.1 SEC (9.98-11.88)
[2017-06-14 08:12] LABS: ANION GAP 10 (8-16); BILIRUBIN,TOTAL 0.5 mg/dL (0.2-1.0); BLOOD UREA NITROGEN 48 mg/dL (7-18); CHLORIDE 118 mmol/L (98-107); CO2 20 mmol/L (21-32); CREATININE 2.2 mg/dL (0.55-1.02); GLUCOSE,RANDOM 90 mg/dL (74-106); MAGNESIUM 1.2 mg/dL (1.8-2.4); PHOSPHOROUS 1.7 mg/dL (2.5-4.9); POTASSIUM 3.3 mmol/L (3.5-5.1); SGOT/AST 27 U/L (15-37); SGPT/ALT 10 U/L (12-78); SODIUM 148 mmol/L (136-145); TOT PROT 5.7 g/dl (6.4-8.2)
[2017-06-14 08:13] LABS: ALK PHOS 62 U/L (45-117)
[2017-06-14 08:49] LABS: CALCIUM 6.9 mg/dL (8.5-10.1)
--- NOTE | 2017-06-14 11:43 | PN ---
Progress Note (short form) - Note Progress Note: nad now with copious diarrhea per daughter weak, responsive Vital Signs Period Temp Pulse Resp BP Sys/Saucedo Pulse Ox Last 24 Hr 97.4 F-98.6 F 107-113 20-20 102-129/61-73 94 cor-rrr llungs bilateral wheezing abd soft,nt ext trace edema CBC, BMP 06/14/17 06:00 06/14/17 06:00 Microbiology 06/09/17 18:09 Urine For Antigen Detection Legionella Antigen - Final 06/09/17 18:09 Urine For Antigen Detection Streptococcus pneumoniae Antigen (M - Final 06/09/17 14:39 Blood - Peripheral Venous Blood Culture - Preliminary NO GROWTH OBTAINED AFTER 96 HOURS, INCUBATION TO CONTINUE FOR 1 DAYS. 06/09/17 15:54 Urine - Urine Clean Catch Urine Culture - Final Pseudomonas Aeruginosa 06/09/17 14:39 Blood - Peripheral Venous Blood Culture - Final Staphylococcus Epidermidis 06/09/17 18:08 Nasopharyngeal Swab Influenza Types A,B Antigen (ROSALINDA) - Final 06/09/17 18:08 Nasopharyngeal Swab - Final head ct no CVA a/p fever-pseudomonas UTI blood culture contaminant continue cefepime day #6 family arranging home hospice d/w daughter at length at the bedside ARF overall doing poorly d/w daughter at bedside
[2017-06-14] MEDS: D5-1/2NS+10 MEQ KCL - 10 MEQ/1,000 ML INFUS.BAG IV SCH (12:12)
[2017-06-14] MEDS: LACTOBACILLUS ACIDOPHILUS 1 EACH TAB (FP) PO SCH (12:18)
[2017-06-14] MEDS: CEFEPIME 2 GM in DEXTROSE 5%-WATER - 100 ML IVPB SCH (12:20)
[2017-06-14] MEDS: NYSTATIN POWDER 100,000 UNITS/GM - 15 GM TOPICAL POWDER TP SCH (12:20)
--- NOTE | 2017-06-14 12:38 | PN ---
Progress Note, Physician History of Present Illness: Pt seen and examined at bedside. She is agitated and confused. She is not eating. - Current Medication List Current Medications: Active Medications Albuterol/Ipratropium (Duoneb -) 1 amp NEB Q6H PRN PRN Reason: SHORTNESS OF BREATH Last Admin: 06/13/17 21:42 Dose: 1 amp Calcium Carbonate (Calcium Carb Oral Suspension -) 500 mg PO DAILY [facility] Last Admin: 06/13/17 11:12 Dose: Not Given Heparin Sodium (Porcine) (Heparin -) 5,000 unit SQ TID [facility] Last Admin: 06/14/17 06:20 Dose: Not Given Cefepime HCl 2 gm/ Dextrose 100 mls @ 200 mls/hr IVPB DAILY [facility] Last Admin: 06/14/17 12:20 Dose: 200 mls/hr Potassium Chloride/Dextrose/Sod Cl (D5-1/2ns+10 Meq Kcl -) 10 meq in 1,000 mls @ 75 mls/hr IV ASDIR [facility] Last Admin: 06/14/17 12:12 Dose: Not Given Lactobacillus Acidophilus (Bacid -) 1 tab PO DAILY [facility] Last Admin: 06/14/17 12:18 Dose: 1 tab Nystatin (Nystop Powder -) 1 applic TP DAILY [facility] Last Admin: 06/14/17 12:20 Dose: 1 applic Polyethylene Glycol (Miralax (For Daily Use) -) 17 gm PO TID [facility] Last Admin: 06/14/17 06:20 Dose: Not Given Senna (Senna -) 1 tab PO HS [facility] Last Admin: 06/13/17 21:57 Dose: Not Given - Objective Vital Signs: Vital Signs Temperature 98 F 06/14/17 06:00 Pulse Rate 107 H 06/14/17 06:00 Respiratory Rate 20 06/14/17 06:00 Blood Pressure 129/69 06/14/17 06:00 O2 Sat by Pulse Oximetry (%) 94 L 06/13/17 22:00 Constitutional: Yes: Anxious, Mild Distress Eyes: Yes: Conjunctiva Clear HENT: Yes: Atraumatic Neck: Yes: Supple Cardiovascular: Yes: S1, S2 Respiratory: Yes: On Nasal O2 Gastrointestinal: Yes: Soft Genitourinary: Yes: Incontinence Musculoskeletal: Yes: Muscle Weakness Edema: No Neurological: Yes: Confusion Labs: CBC, BMP 06/14/17 06:00 06/14/17 06:00 INR, PTT INR 1.16 (0.82-1.09) H 06/14/17 06:00 Problem List - Problems (1) CKD (chronic kidney disease) Code(s): N18.9 - CHRONIC KIDNEY DISEASE, UNSPECIFIED (2) Pneumonia Code(s): J18.9 - PNEUMONIA, UNSPECIFIED ORGANISM Assessment/Plan Current Medications Generic Name Dose Route Start Last Admin Trade Name Freq PRN Reason Stop Dose Admin Albuterol/Ipratropium 1 amp 06/09/17 17:27 06/13/17 21:42 Duoneb - NEB 1 amp Q6H PRN Administration SHORTNESS OF BREATH Calcium Carbonate 500 mg 06/10/17 10:00 06/13/17 11:12 Calcium Carb Oral Suspension - PO Not Given DAILY [facility] Heparin Sodium (Porcine) 5,000 unit 06/09/17 22:00 06/14/17 06:20 Heparin - SQ Not Given TID [facility] Cefepime HCl 2 gm/ Dextrose 100 mls @ 200 mls/hr 06/10/17 11:30 06/14/17 12: 20 IVPB 200 mls/hr DAILY [facility] Administration Potassium Chloride/Dextrose/Sod Cl 10 meq in 1,000 mls @ 75 mls/hr 06/13/17 10 :28 06/14/17 12:12 D5-1/2ns+10 Meq Kcl - IV Not Given ASDIR [facility] Lactobacillus Acidophilus 1 tab 06/11/17 10:30 06/14/17 12:18 Bacid - PO 1 tab DAILY [facility] Administration Nystatin 1 applic 06/12/17 15:00 06/14/17 12:20 Nystop Powder - TP 1 applic DAILY [facility] Administration Polyethylene Glycol 17 gm 06/09/17 22:00 06/14/17 06:20 Miralax (For Daily Use) - PO Not Given TID [facility] Senna 1 tab 06/09/17 22:00 06/13/17 21:57 Senna - PO Not Given HS [facility] Impression 1. SHANIA 2. sepsis 3. anemia 4. CKD 5. multiple myeloma 6. malnutrition 7. proteinuria 8. PNA 9. interstitial lung disease 10. hypernatremia 11. hypokalemia Plan - can change fluids to d51/3rd saline with potassium - discussed case with daughter - renal function is stable - overall prognosis is poor - stop fluids if clinimix is started - will need to clarify GOC Dr Soto
[2017-06-14] MEDS ORDERED: D5-1/3NS+20 MEQ KCL - 20 MEQ/1,000 ML INFUS.BAG IV SCH ×2 (12:45)
[2017-06-14] MEDS: CALCIUM CARBONATE SUSPENSION - 500 MG/5 ML ML PO SCH (15:19)
[2017-06-14] MEDS ORDERED: DEXTROSE 5%-1/3 NS - 500 ML with POTASSIUM CHLORIDE 10 MEQ IVPB SCH (15:45)
[2017-06-14] MEDS: POTASSIUM CHLORIDE 10 MEQ in DEXTROSE 5%-1/3 NS - 500 ML IVPB SCH ×2 (17:30→22:04)
--- NOTE | 2017-06-14 17:56 | PN ---
Teaching Attending Note Name of Resident: Shandra Wolff ATTENDING PHYSICIAN STATEMENT Time of evaluation: 10:45 AM I saw and evaluated the patient. I reviewed the resident's note and discussed the case with the resident. I agree with the resident's findings and plan as documented. SUBJECTIVE: Patient seen and examined. no verbal responses, Unable to assess for ROS. OBJECTIVE: Vital Signs Period Temp Pulse Resp BP Sys/Saucedo Pulse Ox Last 24 Hr 97.4 F-98.6 F 91-113 20-20 102-129/61-72 90-94 Intake & Output 06/11/17 06/12/17 06/13/17 06/14/17 23:59 23:59 23:59 23:59 Intake Total 240 168 375 525 Balance 240 168 375 525 General: lying in bed debilitated, mild tachypnea with use of acessory muscles of respiration CVS:S1S2 regular, tachycardic Chest; poor effort bibasilar rales Abdomen: soft, NT, positive bowel sounds, ND extremities: no edema Home Medication List Medication Instructions Recorded Confirmed Type Acetaminophen [Tylenol] 650 mg PO QID PRN 06/09/17 06/09/17 History Active Medications Generic Name Dose Route Start Last Admin Trade Name Freq PRN Reason Stop Dose Admin Albuterol/Ipratropium 1 amp 06/09/17 17:27 06/13/17 21:42 Duoneb - NEB 1 amp Q6H PRN Administration SHORTNESS OF BREATH Calcium Carbonate 500 mg 06/10/17 10:00 06/14/17 15:19 Calcium Carb Oral Suspension - PO Not Given DAILY [facility] Heparin Sodium (Porcine) 5,000 unit 06/09/17 22:00 06/14/17 15:20 Heparin - SQ Not Given TID [facility] Cefepime HCl 2 gm/ Dextrose 100 mls @ 200 mls/hr 06/10/17 11:30 06/14/17 12: 20 IVPB 200 mls/hr DAILY [facility] Administration Potassium Chloride 10 meq/ 505 mls @ 70 mls/hr 06/14/17 15:45 06/14/17 17:30 Dextrose/Sodium Chloride IVPB 70 mls/hr Q7H [facility] Administration Lactobacillus Acidophilus 1 tab 06/11/17 10:30 06/14/17 12:18 Bacid - PO 1 tab DAILY [facility] Administration Nystatin 1 applic 06/12/17 15:00 06/14/17 12:20 Nystop Powder - TP 1 applic DAILY [facility] Administration Polyethylene Glycol 17 gm 06/09/17 22:00 06/14/17 15:20 Miralax (For Daily Use) - PO Not Given TID [facility] Senna 1 tab 06/09/17 22:00 06/13/17 21:57 Senna - PO Not Given HS [facility] Laboratory Results - last 24 hr 06/13/17 06/13/17 06/14/17 16:00 17:25 00:03 WBC RBC Hgb Hct MCV MCH MCHC RDW Plt Count MPV Neutrophils % Lymphocytes % Monocytes % Eosinophils % Basophils % PT with INR INR Sodium 147 H Potassium 3.5 Chloride 116 H Carbon Dioxide 21 Anion Gap 10 BUN 53 H Creatinine 2.4 H Creat Clearance w eGFR POC Glucometer 76 87 Random Glucose 72 L Calcium 7.3 L Phosphorus Magnesium Total Bilirubin AST ALT Alkaline Phosphatase Total Protein Albumin 06/14/17 06/14/17 06/14/17 06:00 06:00 06:00 WBC 8.5 RBC 3.18 L Hgb 9.2 L Hct 28.6 L MCV 89.9 MCH 28.8 MCHC 32.1 RDW 19.7 H Plt Count 134 MPV 7.3 L Neutrophils % 63.4 Lymphocytes % 26.2 D Monocytes % 9.2 Eosinophils % 0.7 Basophils % 0.5 PT with INR 13.10 H INR 1.16 H Sodium 148 H Potassium 3.3 L Chloride 118 H Carbon Dioxide 20 L Anion Gap 10 BUN 48 H Creatinine 2.2 H Creat Clearance w eGFR 21.37 POC Glucometer Random Glucose 90 Calcium 6.9 L* Phosphorus 1.7 L D Magnesium 1.2 L Total Bilirubin 0.5 AST 27 ALT 10 L Alkaline Phosphatase 62 Total Protein 5.7 L Albumin 2.0 L 06/14/17 12:26 WBC RBC Hgb Hct MCV MCH MCHC RDW Plt Count MPV Neutrophils % Lymphocytes % Monocytes % Eosinophils % Basophils % PT with INR INR Sodium Potassium Chloride Carbon Dioxide Anion Gap BUN Creatinine Creat Clearance w eGFR POC Glucometer 112 Random Glucose Calcium Phosphorus Magnesium Total Bilirubin AST ALT Alkaline Phosphatase Total Protein Albumin Microbiology 06/09/17 14:39 Blood - Peripheral Venous Blood Culture - Final NO GROWTH AFTER 5 DAYS INCUBATION 06/09/17 18:09 Urine For Antigen Detection Legionella Antigen - Final 06/09/17 18:09 Urine For Antigen Detection Streptococcus pneumoniae Antigen (M - Final 06/09/17 15:54 Urine - Urine Clean Catch Urine Culture - Final Pseudomonas Aeruginosa 06/09/17 14:39 Blood - Peripheral Venous Blood Culture - Final Staphylococcus Epidermidis 06/09/17 18:08 Nasopharyngeal Swab Influenza Types A,B Antigen (ROSALINDA) - Final 06/09/17 18:08 Nasopharyngeal Swab - Final ASSESSMENT AND PLAN: 81yo F with PMH MM not on chemo (last dose 04/14), afib, spinal stenosis, CKD, OA recent prolonged hospital stay for PNA, when was transiently on HD, presented to the ER with fever, found with pseudomonas UTI. 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 Follow up cultures. PNA studies noted. Blood cx noted, discuss with ID if repeat studies and additional work up indicated. Continue IVF, renal input appreciated, Monitor Na levels. Nutrition input appreciated. Given her agitation, overall declining functional status, would avoid NG placement currently. Nutrition input noted. Discuss with family if agreable to Clinimix, will hold IVF in the case. Creatinine around baseline. CT brain noted. Dicsussed with Dr. Owen, MRI brain from 12/2016 with cranial /frontal lobe lesions. Not a candidate for treatment currently. Family requesting neurological input for her mental status decline over the last week, which suspect is multifactorial delirum from infection, hypoxia, hypovolumia, electrolyte abnormalites, recurrent hospital admissions and progressive decline. Will follow up further recs. BGM AC and HS. replete lytes prn. On 2L NC, monitor for now, aspiration risk based on her debility and current mental status. Aspiration precuations. Heparin for DVTPpx DNR/DNI. Discussed with patient's daughter, had meeting with palliative care and when discussed earlier were interested in home with hospice options. Patient was accepted by [facility] hospice, however family later declined home hospice currently and want patient to continue with trial for fluids and antibiotics. Discussed with daughter earlier in detail about patient's poor prognosis, incurable multiple myeloma, now with recurrent infections and poor oral intake with progressive deterioration. Daughter reported being aware of the same and in discussions with her family to address further plan of care.
--- NOTE | 2017-06-14 18:19 | PN ---
Physical Exam: SUBJECTIVE: Patient seen and examined. Events overnight: patient was agitated and combative. Still has nonproductive cough. OBJECTIVE: Vital Signs Period Temp Pulse Resp BP Sys/Saucedo Pulse Ox Last 24 Hr 97.4 F-98.6 F 91-113 20-20 102-129/61-72 90-94 GENERAL: 3L NC, Frail, elderly woman, awake and nonverbal. Notable distressed HEAD: Normal with no signs of trauma. EYES: PERRL, extraocular movements intact, sclera anicteric, conjunctiva clear. No ptosis. NECK: +JVD. supple. LUNGS: Coarse breath sounds BL. accessory muscle use. HEART: Regular rate and rhythm, S1, S2 without murmur, rub or gallop. ABDOMEN: Soft, nontender, nondistended, normoactive bowel sounds EXTREMITIES: 2+ pulses, warm, well-perfused, no edema. NEUROLOGICAL: Unable to perform. PSYCH: Nonverbal SKIN: Warm, dry, normal turgor, no rashes or lesions noted Laboratory Results - last 24 hr 06/13/17 06/13/17 06/14/17 16:00 17:25 00:03 WBC RBC Hgb Hct MCV MCH MCHC RDW Plt Count MPV Neutrophils % Lymphocytes % Monocytes % Eosinophils % Basophils % PT with INR INR Sodium 147 H Potassium 3.5 Chloride 116 H Carbon Dioxide 21 Anion Gap 10 BUN 53 H Creatinine 2.4 H Creat Clearance w eGFR POC Glucometer 76 87 Random Glucose 72 L Calcium 7.3 L Phosphorus Magnesium Total Bilirubin AST ALT Alkaline Phosphatase Total Protein Albumin 06/14/17 06/14/17 06/14/17 06:00 06:00 06:00 WBC 8.5 RBC 3.18 L Hgb 9.2 L Hct 28.6 L MCV 89.9 MCH 28.8 MCHC 32.1 RDW 19.7 H Plt Count 134 MPV 7.3 L Neutrophils % 63.4 Lymphocytes % 26.2 D Monocytes % 9.2 Eosinophils % 0.7 Basophils % 0.5 PT with INR 13.10 H INR 1.16 H Sodium 148 H Potassium 3.3 L Chloride 118 H Carbon Dioxide 20 L Anion Gap 10 BUN 48 H Creatinine 2.2 H Creat Clearance w eGFR 21.37 POC Glucometer Random Glucose 90 Calcium 6.9 L* Phosphorus 1.7 L D Magnesium 1.2 L Total Bilirubin 0.5 AST 27 ALT 10 L Alkaline Phosphatase 62 Total Protein 5.7 L Albumin 2.0 L 06/14/17 12:26 WBC RBC Hgb Hct MCV MCH MCHC RDW Plt Count MPV Neutrophils % Lymphocytes % Monocytes % Eosinophils % Basophils % PT with INR INR Sodium Potassium Chloride Carbon Dioxide Anion Gap BUN Creatinine Creat Clearance w eGFR POC Glucometer 112 Random Glucose Calcium Phosphorus Magnesium Total Bilirubin AST ALT Alkaline Phosphatase Total Protein Albumin Active Medications Generic Name Dose Route Start Last Admin Trade Name Freq PRN Reason Stop Dose Admin Albuterol/Ipratropium 1 amp 06/09/17 17:27 06/13/17 21:42 Duoneb - NEB 1 amp Q6H PRN Administration SHORTNESS OF BREATH Calcium Carbonate 500 mg 06/10/17 10:00 06/14/17 15:19 Calcium Carb Oral Suspension - PO Not Given DAILY [facility] Heparin Sodium (Porcine) 5,000 unit 06/09/17 22:00 06/14/17 15:20 Heparin - SQ Not Given TID [facility] Cefepime HCl 2 gm/ Dextrose 100 mls @ 200 mls/hr 06/10/17 11:30 06/14/17 12: 20 IVPB 200 mls/hr DAILY [facility] Administration Potassium Chloride 10 meq/ 505 mls @ 70 mls/hr 06/14/17 15:45 06/14/17 17:30 Dextrose/Sodium Chloride IVPB 70 mls/hr Q7H [facility] Administration Lactobacillus Acidophilus 1 tab 06/11/17 10:30 06/14/17 12:18 Bacid - PO 1 tab DAILY [facility] Administration Nystatin 1 applic 06/12/17 15:00 06/14/17 12:20 Nystop Powder - TP 1 applic DAILY [facility] Administration Polyethylene Glycol 17 gm 06/09/17 22:00 06/14/17 15:20 Miralax (For Daily Use) - PO Not Given TID [facility] Senna 1 tab 06/09/17 22:00 06/13/17 21:57 Senna - PO Not Given HS [facility] ASSESSMENT/PLAN: 81 yo woman w/ pmh of MM (no longer on chemo as of 04/14), afib, CKD, OA, who initially presented to ED w/ sepsis secondary to UTI after spiking fevers at [place]. Recently more altered per family, likely secondary to infectious source however must r/o all possible etiologies. Pt with poor prognosis given progress of MM. Consider palliation. #Sepsis secondary to UTI - Urine cx + for pseudomonas; No WBC count or fever; - ID consulted, recs appreciated - Trend fever, WBC curve - Day 6 of cefepime for UTI coverage - f/u all cultures, urine Ags - Staph epi + blood cultures likely skin charbel contaminant - CXR- noncalcified nodular opacities (4mm), noted in both lungs, right greater than left. #Altered mental status - Likely toxic metabolic encephalopathy secondary to UTI ; Possible elements of dehydration, hypoglycemia, intracranial MM -Neuro consulted for mental status decline. Family also requesting neurological input. - CT negative for bleed; evidence of cranial MM - Neuro checks Q4h - IVFs #SHANIA on CKD - Baseline Cr 2.4-2.5. At baseline, 2.2 today. Good UOP, voiding in diaper - IVFs - Daily BMPs, trend Cr #Hypernatremia - likely hypovolemic. 148 today - Daily BMPs - Increase D51/2NS to 75cc #Hypoglycemia - WNL - BGM ACHS, qHS - D51/2 NS 75cc #Hypokalemia - 3.3 this AM. Received K CL in dextrose; - Daily BMPs - Replete as needed #Sinus tachycardia - likely secondary to sepsis; likely components of dehydration, respiratory distress - Monitor - Serial EKGs #Afib - Currently NSR, CHADsVasc 3 - Daughter refused NOACS, BBs #MM - no longer receiving chemo tx - Heme/onc consulted - palliative care consult placed by Dr. Bello; f/u for plan for family meeting - Intracranial MM noted on non-con CT today #Decreased PO intake -Refusing oral feeds; Puree diet #PPX Heparin Subq #FEN D51/2NS 75cc/hr Daily BMPs Puree diet DNR/DNI Patient's family were interested in home hospice after meeting with palliative care. Patient was accepted by [facility] hosp[facility] but family later declined it. They want to continue with antibiotics and fluids. Discussed with daughters in detail about patients poor prognosis. Daughter she was aware of the information by other doctors and would like to discuss options with her family. Visit type - Emergency Visit Emergency Visit: Yes ED Registration Date: 06/09/17 Care time: The patient presented to the Emergency Department on the above date and was hospitalized for further evaluation of their emergent condition. - New Patient This patient is new to me today: Yes Date on this admission: 06/14/17 - Critical Care Critical Care patient: No
--- NOTE | 2017-06-14 18:30 | PN ---
Progress Note (short form) - Note Progress Note: pt seen and examined. continues to moan. O/E: General: Moaning, awake, non-communicative HEENT: NCAT Lunsg: poor inspiratory effort Cor: tachy cardia Extremeties: +edema Last Vital Signs Temp Pulse Resp BP Pulse Ox 97.7 F 109 H 20 107/73 95 06/13/17 14:22 06/13/17 14:22 06/13/17 14:22 06/13/17 14:22 06/13/17 09:00 CBC, BMP 06/13/17 06:00 06/13/17 16:00 Current Medications Generic Name Dose Route Start Last Admin Trade Name Freq PRN Reason Stop Dose Admin Albuterol/Ipratropium 1 amp 06/09/17 17:27 06/13/17 21:42 Duoneb - NEB 1 amp Q6H PRN Administration SHORTNESS OF BREATH Calcium Carbonate 500 mg 06/10/17 10:00 06/13/17 11:12 Calcium Carb Oral Suspension - PO Not Given DAILY [facility] Heparin Sodium (Porcine) 5,000 unit 06/09/17 22:00 06/13/17 21:57 Heparin - SQ Not Given TID [facility] Cefepime HCl 2 gm/ Dextrose 100 mls @ 200 mls/hr 06/10/17 11:30 06/13/17 11: 10 IVPB 200 mls/hr DAILY [facility] Administration Potassium Chloride/Dextrose/Sod Cl 10 meq in 1,000 mls @ 75 mls/hr 06/13/17 10 :28 06/13/17 17:28 D5-1/2ns+10 Meq Kcl - IV 75 mls/hr ASDIR [facility] Administration Lactobacillus Acidophilus 1 tab 06/11/17 10:30 06/13/17 11:11 Bacid - PO Not Given DAILY [facility] Nystatin 1 applic 06/12/17 15:00 06/13/17 21:57 Nystop Powder - TP Not Given DAILY [facility] Polyethylene Glycol 17 gm 06/09/17 22:00 06/13/17 21:57 Miralax (For Daily Use) - PO Not Given TID [facility] Senna 1 tab 06/09/17 22:00 06/13/17 21:57 Senna - PO Not Given HS [facility] Myeloma- not in remission-- chemotherapy on hold SHANIA-CKD/Lyte derangements- noted Nephrology f/u UTI/LLL consolidation/bactermia-- per I.D. transfusions as needed AMS: ?toxic metabolic , CTH reviewed, MRI 12/2016 noted, explained the same to the daughter who is at the bedside and went over the recent myeloma labs, Requesting neuro consult Noted discrepancy in dispo in terms of Hospice. chirag Hospitalist
[2017-06-14] MEDS: SENNOSIDES 8.6MG TABLET (FP) PO SCH (21:28)
[2017-06-15] MEDS: POTASSIUM CHLORIDE 10 MEQ in DEXTROSE 5%-1/3 NS - 500 ML IVPB SCH ×4 (01:30→12:46)
[2017-06-15] MEDS: POLYETHYLENE GLYCOL 3350 119 GM BTL PO SCH ×3 (05:11→21:29)
[2017-06-15] MEDS: HEPARIN NA (PORCINE) 5,000 UNITS/ML 1ML VIAL SQ SCH ×3 (05:11→21:29)
[2017-06-15 07:25] LABS: HEMATOCRIT 27.1 % (32.4-45.2); HEMOGLOBIN 8.7 GM/dL (10.7-15.3); MCH 28.9 pg (25.7-33.7); MEAN CELL VOLUME 90.4 fl (80-96); MEAN PLT VOLUME 7.3 fl (7.5-11.1); PLATELET COUNT 114 K/MM3 (134-434); RDW 20.6 % (11.6-15.6); WHITE BLOOD COUNT 6.6 K/mm3 (4.0-10.0)
[2017-06-15 10:05] LABS: ALBUMIN 1.8 g/dl (3.4-5.0); ALK PHOS 59 U/L (45-117); ANION GAP 11 (8-16); BILIRUBIN,TOTAL 0.4 mg/dL (0.2-1.0); BLOOD UREA NITROGEN 42 mg/dL (7-18); CHLORIDE 119 mmol/L (98-107); CO2 19 mmol/L (21-32); CREATININE 2.1 mg/dL (0.55-1.02); GLUCOSE,RANDOM 80 mg/dL (74-106); MAGNESIUM 1.2 mg/dL (1.8-2.4); POTASSIUM 3.4 mmol/L (3.5-5.1); SGOT/AST 24 U/L (15-37); SGPT/ALT 11 U/L (12-78); SODIUM 149 mmol/L (136-145); TOT PROT 5.3 g/dl (6.4-8.2)
--- NOTE | 2017-06-15 10:11 | CONSULT ---
Consult - text type - Consultation Consultation Note: Neurology HISTORY OF PRESENT ILLNESS: Patient is an 81 year old female with a PMHx of Multiple Myeloma with spinal cord compression diagnosed in 2017 on Chemotherapy, CKD, Osteoarthritis admitted due to fevers. She presented with cough also complains of lower abdominal pain. While admitted he has been getting treatment for altered mental status, pneumonia and has not been at baseline cognitively. She does have Dementia previously Dx but this is worse than before. CT head completed and lesion in L frontal region, 1.4cm, consistent with multiple myeloma. Had extensive conversation with daughter. Family was considering hospice care according to hospitalist. Explained poor prognosis of disseminated myeloma especially to brain. Daughter appreciated clarification. Recent Travel: Denies PAST MEDICAL HISTORY: Multiple Myeloma (diagnosed 2017 last chemo 04/24/17), Osteoarthritis, CKD PAST SURGICAL HISTORY: Laminectomy of T12 (October 2016) Social History: Smoking: Denies Alcohol: Denies Drugs: Denies Family History: Unable to recall Allergies: aspartame Allergy (Verified 06/09/17 13:03) artificial sugar Latex, Natural Rubber Allergy (Verified 06/09/17 13:03) Penicillins Allergy (Verified 06/09/17 13:03) HOME MEDICATIONS: Home Medications Medication Instructions Recorded Calcium Carbonate Suspension - 500 mg PO DAILY ml 06/08/17 [Calcium Carb Oral Suspension -] Ipratropium 0.02% Nebulizer 1 amp NEB QIDR amp 06/08/17 [Atrovent 0.02% Nebulizer -] Pantoprazole Sodium [Protonix -] 20 mg PO DAILY tablet.ec 06/08/17 Polyethylene Glycol 3350 [Miralax 17 gm PO TID bottle 06/08/17 119 gm Btl -] Sennosides [Senna -] 1 tab PO HS tablet 06/08/17 Acetaminophen [Tylenol] 650 mg PO QID PRN 06/09/17 REVIEW OF SYSTEMS CONSTITUTIONAL: fever, chills, generalized weakness Absent: diaphoresis, malaise, loss of appetite, weight change HEENT: Absent: rhinorrhea, nasal congestion, throat pain, throat swelling, difficulty swallowing, mouth swelling, ear pain, eye pain, visual changes CARDIOVASCULAR: Absent: chest pain, syncope, palpitations, irregular heart rate, lightheadedness , peripheral edema RESPIRATORY: cough Absent: shortness of breath, dyspnea with exertion, orthopnea, wheezing, stridor , hemoptysis GASTROINTESTINAL: abdominal pain, abdominal distension Absent: nausea, vomiting, diarrhea, constipation, melena, hematochezia GENITOURINARY: Absent: dysuria, frequency, urgency, hesitancy, hematuria, flank pain, genital pain MUSCULOSKELETAL: Absent: myalgia, arthralgia, joint swelling, back pain, neck pain SKIN: Absent: rash, itching, pallor HEMATOLOGIC/IMMUNOLOGIC: Absent: easy bleeding, easy bruising, lymphadenopathy, frequent infections ENDOCRINE: Absent: unexplained weight gain, unexplained weight loss, heat intolerance, cold intolerance NEUROLOGIC: Absent: headache, focal weakness or paresthesias, dizziness, unsteady gait, seizure, mental status changes, bladder or bowel incontinence PSYCHIATRIC: Absent: anxiety, depression, suicidal or homicidal ideation, hallucinations. PHYSICAL EXAMINATION Vital Signs Temperature 97.1 F L 06/15/17 08:47 Pulse Rate 95 H 06/15/17 08:47 Respiratory Rate 20 06/15/17 08:47 Blood Pressure 99/61 06/15/17 08:47 O2 Sat by Pulse Oximetry (%) 96 06/14/17 21:00 GENERAL: Awake, alert, oriented x2 to person and place but unable to tell time, in mild acute distress. HEAD: Normal with no signs of trauma. EYES: Pupils equal, round and reactive to light, extraocular movements intact, sclera anicteric, conjunctiva clear. EARS, NOSE, THROAT: Oropharynx clear without exudates. Moist mucous membranes. NECK: Normal range of motion, supple without lymphadenopathy, JVD, or masses. LUNGS: Decreased breath sounds throughout lung bases with rhonchi on left bases and anteriorly HEART: Tachycardic with regular rhythm, normal S1 and S2 without murmur, rub or gallop. ABDOMEN: Soft, distended with suprapubic tenderness upon palpation, normoactive bowel sounds, no guarding, no rebound, no masses. No hepatomegaly or splenomegaly. MUSCULOSKELETAL: No CVA tenderness. UPPER EXTREMITIES: No peripheral edema. LOWER EXTREMITIES: 2+ pulses, warm, well-perfused. No calf tenderness. No peripheral edema. NEUROLOGICAL: Cranial nerves II-XII intact. Hard of hearing bilaterally. Normal speech. Motor grossly intact with sensory intact. No facial assymetry. dp pulses 2+ bilaterally. Knee reflexes 2+ bilaterally. PSYCHIATRIC: Cooperative. Good eye contact. Appropriate mood and affect. SKIN: Warm, dry, normal turgor, no rashes or lesions noted, normal capillary refill. CBCD WBC 6.6 K/mm3 (4.0-10.0) 06/15/17 06:30 RBC 3.00 M/mm3 (3.60-5.2) L 06/15/17 06:30 Hgb 8.7 GM/dL (10.7-15.3) L 06/15/17 06:30 Hct 27.1 % (32.4-45.2) L 06/15/17 06:30 MCV 90.4 fl (80-96) 06/15/17 06:30 MCHC 32.0 g/dl (32.0-36.0) 06/15/17 06:30 RDW 20.6 % (11.6-15.6) H 06/15/17 06:30 Plt Count 114 K/MM3 (134-434) L 06/15/17 06:30 MPV 7.3 fl (7.5-11.1) L 06/15/17 06:30 CMP Sodium 148 mmol/L (136-145) H 06/14/17 06:00 Potassium 3.3 mmol/L (3.5-5.1) L 06/14/17 06:00 Chloride 118 mmol/L (98-107) H 06/14/17 06:00 Carbon Dioxide 20 mmol/L (21-32) L 06/14/17 06:00 Anion Gap 10 (8-16) 06/14/17 06:00 BUN 48 mg/dL (7-18) H 06/14/17 06:00 Creatinine 2.2 mg/dL (0.55-1.02) H 06/14/17 06:00 Creat Clearance w eGFR 21.37 (>60) 06/14/17 06:00 Calcium 6.9 mg/dL (8.5-10.1) L* 06/14/17 06:00 Total Bilirubin 0.5 mg/dL (0.2-1.0) 06/14/17 06:00 AST 27 U/L (15-37) 06/14/17 06:00 ALT 10 U/L (12-78) L 06/14/17 06:00 Alkaline Phosphatase 62 U/L (45-117) 01/17/18 06:00 Total Protein 5.7 g/dl (6.4-8.2) L 06/14/17 06:00 Albumin 2.0 g/dl (3.4-5.0) L 06/14/17 06:[address] Head: L front 1.4cm lesion noted, likely 2/2 MM ASSESSMENT/PLAN: 81 year old female with a PMHx of Multiple Myeloma with spinal cord compression diagnosed in 2017 on Chemotherapy, CKD, Osteoarthritis admitted due to fevers. She presented with cough also complains of lower abdominal pain. While admitted he has been getting treatment for altered mental status, pneumonia and has not been at baseline cognitively. She does have Dementia previously Dx but this is worse than before. CT head completed and lesion in L frontal region, 1.4cm, consistent with multiple myeloma. Had extensive conversation with daughter. Family was considering hospice care according to hospitalist. Explained poor prognosis of disseminated myeloma especially to brain. Daughter appreciated clarification. Continue Tx for PNA, UTI Oncology reg'd MM mgmt Monitor renal function IV Fluids Will not pursue further imaging of brain at this time, CT head sufficient and demonstrates lesion Consider goals of care and whether hospice would be preferred
[2017-06-15] MEDS: CEFEPIME 2 GM in DEXTROSE 5%-WATER - 100 ML IVPB SCH (10:24)
[2017-06-15] MEDS: LACTOBACILLUS ACIDOPHILUS 1 EACH TAB (FP) PO SCH (10:25)
[2017-06-15] MEDS: CALCIUM CARBONATE SUSPENSION - 500 MG/5 ML ML PO SCH (10:25)
[2017-06-15] MEDS: NYSTATIN POWDER 100,000 UNITS/GM - 15 GM TOPICAL POWDER TP SCH (10:49)
[2017-06-15 11:56] LABS: CALCIUM 6.7 mg/dL (8.5-10.1)
--- NOTE | 2017-06-15 15:06 | PN ---
Progress Note (short form) - Note Progress Note: Doing poorly Neurology note seen and reviewed Day 5 Cefepime Selected Entries 06/15/17 08:47 Temperature 97.1 F L Pulse Rate 95 H Respiratory 20 Rate Blood Pressure 99/61 Microbiology 06/09/17 15:54 Urine - Urine Clean Catch Urine Culture - Final Pseudomonas Aeruginosa 06/09/17 14:39 Blood - Peripheral Venous Blood Culture - Final Staphylococcus Epidermidis 06/09/17 14:39 Blood - Peripheral Venous Blood Culture - Final NO GROWTH AFTER 5 DAYS INCUBATION Laboratory Tests 06/15/17 06/15/17 06:30 06:30 WBC 6.6 Hgb 8.7 L Hct 27.1 L Plt Count 114 L BUN 42 H Creatinine 2.1 H Creat Clearance w eGFR 22.55 Assessment Metastatic Myeloma Urinary infection Plan Family says they are taking her home tomorrow. Can keep Cefepime going into tomorrow Sammy GONSALES
--- NOTE | 2017-06-15 15:11 | PN ---
Progress Note, Physician History of Present Illness: Pt seen and examined at bedside. She is lethargic. - Current Medication List Current Medications: Active Medications Albuterol/Ipratropium (Duoneb -) 1 amp NEB Q6H PRN PRN Reason: SHORTNESS OF BREATH Last Admin: 06/13/17 21:42 Dose: 1 amp Calcium Carbonate (Calcium Carb Oral Suspension -) 500 mg PO DAILY [facility] [place] Last Admin: 06/15/17 10:25 Dose: 500 mg Heparin Sodium (Porcine) (Heparin -) 5,000 unit SQ TID [facility] [place] Last Admin: 06/15/17 14:57 Dose: Not Given Cefepime HCl 2 gm/ Dextrose 100 mls @ 200 mls/hr IVPB DAILY [facility] [place] Last Admin: 06/15/17 10:24 Dose: 200 mls/hr Potassium Chloride 10 meq/ (Dextrose/Sodium Chloride) 505 mls @ 70 mls/hr IVPB Q7H [facility] [place] Last Admin: 06/15/17 12:46 Dose: Not Given Lactobacillus Acidophilus (Bacid -) 1 tab PO DAILY [facility] [place] Last Admin: 06/15/17 10:25 Dose: 1 tab Nystatin (Nystop Powder -) 1 applic TP DAILY [facility] [place] Last Admin: 06/15/17 10:49 Dose: 1 applic Polyethylene Glycol (Miralax (For Daily Use) -) 17 gm PO TID [facility] [place] Last Admin: 06/15/17 14:57 Dose: Not Given Senna (Senna -) 1 tab PO HS [facility] [place] Last Admin: 06/14/17 21:28 Dose: Not Given - Objective Vital Signs: Vital Signs Temperature 97.1 F L 06/15/17 08:47 Pulse Rate 79 06/15/17 10:58 Respiratory Rate 20 06/15/17 08:47 Blood Pressure 99/61 06/15/17 08:47 O2 Sat by Pulse Oximetry (%) 95 06/15/17 10:58 Constitutional: Yes: Calm Eyes: Yes: Conjunctiva Clear HENT: Yes: Atraumatic Neck: Yes: Supple Cardiovascular: Yes: S1, S2 Respiratory: Yes: Rhonchi Gastrointestinal: Yes: Soft Genitourinary: Yes: Incontinence Musculoskeletal: Yes: Muscle Weakness Edema: No Neurological: Yes: Lethargy Labs: CBC, BMP 06/15/17 06:30 06/15/17 06:30 INR, PTT INR 1.16 (0.82-1.09) H 06/14/17 06:00 Problem List - Problems (1) CKD (chronic kidney disease) Code(s): N18.9 - CHRONIC KIDNEY DISEASE, UNSPECIFIED (2) Pneumonia Code(s): J18.9 - PNEUMONIA, UNSPECIFIED ORGANISM Assessment/Plan Current Medications Generic Name Dose Route Start Last Admin Trade Name Freq PRN Reason Stop Dose Admin Albuterol/Ipratropium 1 amp 06/09/17 17:27 06/13/17 21:42 Duoneb - NEB 1 amp Q6H PRN Administration SHORTNESS OF BREATH Calcium Carbonate 500 mg 06/10/17 10:00 06/15/17 10:25 Calcium Carb Oral Suspension - PO 500 mg DAILY TOMÁS Administration Heparin Sodium (Porcine) 5,000 unit 06/09/17 22:00 06/15/17 14:57 Heparin - SQ Not Given TID TOMÁS Cefepime HCl 2 gm/ Dextrose 100 mls @ 200 mls/hr 06/10/17 11:30 06/15/17 10: 24 IVPB 200 mls/hr DAILY [facility]OM[facility] Administration Potassium Chloride 10 meq/ 505 mls @ 70 mls/hr 06/14/17 15:45 06/15/17 12:46 Dextrose/Sodium Chloride IVPB Not Given Q7H TOMÁS Lactobacillus Acidophilus 1 tab 06/11/17 10:30 06/15/17 10:25 Bacid - PO 1 tab DAILY TOM[facility] Administration Nystatin 1 applic 06/12/17 15:00 06/15/17 10:49 Nystop Powder - TP 1 applic DAILY TOM[facility] Administration Polyethylene Glycol 17 gm 06/09/17 22:00 06/15/17 14:57 Miralax (For Daily Use) - PO Not Given TID TOMÁS Senna 1 tab 06/09/17 22:00 06/14/17 21:28 Senna - PO Not Given HS TOMÁS Impression 1. SHANIA 2. sepsis 3. anemia 4. CKD 5. multiple myeloma 6. malnutrition 7. proteinuria 8. PNA 9. interstitial lung disease 10. hypernatremia 11. hypokalemia Plan - change fluids to d5w with potassium - repeat labs in am - discussed with daughter - neuro input appreciated - pt is not eating or drinking - will need to clarify GOC Dr Soto
[2017-06-15] MEDS: DEXTROSE 5%-WATER - 1,000 ML with POTASSIUM CHLORIDE 20 MEQ IV SCH (16:59)
--- NOTE | 2017-06-15 17:24 | PN ---
Teaching Attending Note Name of Resident: Shandra Wolff ATTENDING PHYSICIAN STATEMENT Time of evaluation: 9:50 AM I saw and evaluated the patient. I reviewed the resident's note and discussed the case with the resident. I agree with the resident's findings and plan as documented. SUBJECTIVE: Patient seen and examined. Non verbal, moaning, unable to do ROS. OBJECTIVE: Vital Signs Period Temp Pulse Resp BP Sys/Saucedo Pulse Ox Last 24 Hr 97.1 F-98.4 F 79-107 18-20 93-113/52-70 95-96 Intake & Output 06/12/17 06/13/17 06/14/17 06/15/17 23:59 23:59 23:59 23:59 Intake Total [phone] [id number] Balance 168 471 078 5064 General: sitting in bed, lethargic, moaning, use of accessory muscles of respiration Chest; bilateral scattered rhonchi and rales Abdomen:soft, Groaning on palpation, mild distension, positive bowel sounds, further exam limited Neuro: lethargic, moaning, does not follow commands, withdraws to pain Home Medication List Medication Instructions Recorded Confirmed Type Acetaminophen [Tylenol] 650 mg PO QID PRN 06/09/17 06/09/17 History Active Medications Generic Name Dose Route Start Last Admin Trade Name Freq PRN Reason Stop Dose Admin Albuterol/Ipratropium 1 amp 06/09/17 17:27 06/13/17 21:42 Duoneb - NEB 1 amp Q6H PRN Administration SHORTNESS OF BREATH Calcium Carbonate 500 mg 06/10/17 10:00 06/15/17 10:25 Calcium Carb Oral Suspension - PO 500 mg DAILY TOM[facility]S Administration Heparin Sodium (Porcine) 5,000 unit 06/09/17 22:00 06/15/17 14:57 Heparin - SQ Not Given TID TOM[facility]S Cefepime HCl 2 gm/ Dextrose 100 mls @ 200 mls/hr 06/10/17 11:30 06/15/17 10: 24 IVPB 200 mls/hr DAILY TOM[facility] Administration Potassium Chloride 20 meq/ 1,010 mls @ 70 mls/hr 06/15/17 15:15 06/15/17 16: 59 Dextrose IV 70 mls/hr Q14H TOM[facility]S Administration Lactobacillus Acidophilus 1 tab 06/11/17 10:30 01/18/18 10:25 Bacid - PO 1 tab DAILY TOM[facility]S Administration Nystatin 1 applic 06/12/17 15:00 06/15/17 10:49 Nystop Powder - TP 1 applic DAILY TOM[facility]S Administration Polyethylene Glycol 17 gm 06/09/17 22:00 06/15/17 14:57 Miralax (For Daily Use) - PO Not Given TID TOM[facility]S Senna 1 tab 06/09/17 22:00 06/14/17 21:28 Senna - PO Not Given HS TOMÁS Laboratory Results - last 24 hr 06/15/17 06/15/17 06/15/17 05:39 06:30 06:30 WBC 6.6 RBC 3.00 L Hgb 8.7 L Hct 27.1 L MCV 90.4 MCH 28.9 MCHC 32.0 RDW 20.6 H Plt Count 114 L MPV 7.3 L Sodium 149 H Potassium 3.4 L Chloride 119 H Carbon Dioxide 19 L Anion Gap 11 BUN 42 H Creatinine 2.1 H Creat Clearance w eGFR 22.55 POC Glucometer 97 Random Glucose 80 Calcium 6.7 L* Magnesium 1.2 L Total Bilirubin 0.4 AST 24 ALT 11 L Alkaline Phosphatase 59 Total Protein 5.3 L Albumin 1.8 L Microbiology 06/14/17 22:00 Stool Clostridium difficile Antigen (ROSALINDA) - Final 06/14/17 22:00 Stool Clostridium difficile Toxin Assay - Final 06/09/17 14:39 Blood - Peripheral Venous Blood Culture - Final NO GROWTH AFTER 5 DAYS INCUBATION 06/09/17 18:09 Urine For Antigen Detection Legionella Antigen - Final 06/09/17 18:09 Urine For Antigen Detection Streptococcus pneumoniae Antigen (M - Final 06/09/17 15:54 Urine - Urine Clean Catch Urine Culture - Final Pseudomonas Aeruginosa 06/09/17 14:39 Blood - Peripheral Venous Blood Culture - Final Staphylococcus Epidermidis 06/09/17 18:08 Nasopharyngeal Swab Influenza Types A,B Antigen (ROSALINDA) - Final 06/09/17 18:08 Nasopharyngeal Swab - Final ASSESSMENT AND PLAN: 81yo F with PMH MM not on chemo (last dose 04/14), afib, spinal stenosis, CKD, OA recent prolonged hospital stay for PNA, when was transiently on HD, presented to the ER with fever, found with pseudomonas UTI. -Sepsis secondary to pseudomonas UTI -staph epidermidis bacteremia, ?contaminant -Acute hypoxic respiratory distress, improved -AMS, ?toxic metabolic encephalopathy from sepsis, dehydration, CT brain with evidence in cranial multiple myeloma -Acute on CKD stage II -Hypernatremia, suspect hypovolumic -Hypoglycemia -Hypokalemia -sinus tachycardia, suspect multifactorial from dehydration, sepsis, malignancy , respiratory symptoms -paroxysmal Atrial fibrillation, NSR currently CHADSvas 3, daughter refused NOAC and beta enmanuel in the past -Multiple myeloma not on chemo at this time Plan: Cefipime day 6, ID input appreciated. Clinically continues to deteriorate. neurology input noted. patient with no oral intake, lethargic, mild respiratory distress. na continues to rise, declining functional, nutritional and mental status. discussed with palliative care and daughter Lizbeth at bedside. Understand poor prognosis and lack of oral intake. Family agreable to taking patient home with hospice. Patient accepted. Plan to d/c home with hospice tomorrow.
--- NOTE | 2017-06-15 18:21 | PN ---
Physical Exam: SUBJECTIVE: Patient seen and examined. Overnight events: Patient confused, fatigue, refused meds per nurse. OBJECTIVE: Vital Signs Period Temp Pulse Resp BP Sys/Saucedo Pulse Ox Last 24 Hr 97.1 F-98.4 F 79-107 18-20 93-113/52-70 95-96 GENERAL: 3L NC, Frail, elderly woman, awake and nonverbal. Notable distressed HEAD: Normal with no signs of trauma. EYES: PERRL, extraocular movements intact, sclera anicteric, conjunctiva clear. No ptosis. NECK: +JVD. supple. LUNGS: Coarse breath sounds BL. accessory muscle use. HEART: Regular rate and rhythm, S1, S2 without murmur, rub or gallop. ABDOMEN: mild tender to palpation on deep palpation in right upper and lower quadrants. EXTREMITIES: 2+ pulses, warm, well-perfused, no edema. NEUROLOGICAL: Unable to perform. PSYCH: Nonverbal SKIN: Warm, dry, normal turgor, no rashes or lesions noted Laboratory Results - last 24 hr 06/15/17 06/15/17 06/15/17 05:39 06:30 06:30 WBC 6.6 RBC 3.00 L Hgb 8.7 L Hct 27.1 L MCV 90.4 MCH 28.9 MCHC 32.0 RDW 20.6 H Plt Count 114 L MPV 7.3 L Sodium 149 H Potassium 3.4 L Chloride 119 H Carbon Dioxide 19 L Anion Gap 11 BUN 42 H Creatinine 2.1 H Creat Clearance w eGFR 22.55 POC Glucometer 97 Random Glucose 80 Calcium 6.7 L* Magnesium 1.2 L Total Bilirubin 0.4 AST 24 ALT 11 L Alkaline Phosphatase 59 Total Protein 5.3 L Albumin 1.8 L Active Medications Generic Name Dose Route Start Last Admin Trade Name Freq PRN Reason Stop Dose Admin Albuterol/Ipratropium 1 amp 06/09/17 17:27 06/13/17 21:42 Duoneb - NEB 1 amp Q6H PRN Administration SHORTNESS OF BREATH Calcium Carbonate 500 mg 06/10/17 10:00 06/15/17 10:25 Calcium Carb Oral Suspension - PO 500 mg DAILY TOMÁS Administration Heparin Sodium (Porcine) 5,000 unit 06/09/17 22:00 06/15/17 14:57 Heparin - SQ Not Given TID TOMÁS Cefepime HCl 2 gm/ Dextrose 100 mls @ 200 mls/hr 06/10/17 11:30 06/15/17 10: 24 IVPB 200 mls/hr DAILY TOMÁS Administration Potassium Chloride 20 meq/ 1,010 mls @ 70 mls/hr 06/15/17 15:15 06/15/17 16: 59 Dextrose IV 70 mls/hr Q14H TOMÁS Administration Lactobacillus Acidophilus 1 tab 06/11/17 10:30 06/15/17 10:25 Bacid - PO 1 tab DAILY TOMÁS Administration Nystatin 1 applic 06/12/17 15:00 06/15/17 10:49 Nystop Powder - TP 1 applic DAILY TOMÁS Administration Polyethylene Glycol 17 gm 06/09/17 22:00 06/15/17 14:57 Miralax (For Daily Use) - PO Not Given TID TOMÁS Senna 1 tab 06/09/17 22:00 06/14/17 21:28 Senna - PO Not Given HS TOMÁS - CXR- noncalcified nodular opacities (4mm), noted in both lungs, right greater than left. ASSESSMENT/PLAN: 81 yo woman w/ pmh of MM (no longer on chemo as of 04/14), afib, CKD, OA, who initially presented to ED w/ sepsis secondary to UTI after spiking fevers at [place]. Recently more altered per family, likely secondary to infectious source however must r/o all possible etiologies. Pt with poor prognosis given progress of MM. Consider palliation. #Sepsis secondary to UTI - Urine cx + for pseudomonas - ID consulted, recs appreciated - Trend fever, WBC curve - Day 7 of cefepime for UTI coverage - Staph epi + blood cultures likely skin charbel contaminant #Altered mental status - Likely toxic metabolic encephalopathy secondary to UTI ; Possible elements of dehydration, hypoglycemia, intracranial MM -Neuro consulted for mental status decline. Family also requesting neurological input. - CT negative for bleed; evidence of cranial MM - Neuro checks Q4h - IVFs #SHANIA on CKD - Baseline Cr 2.4-2.5. At baseline, 2.1 today. - IVFs - Daily BMPs, trend Cr #Hypoglycemia - WNL - BGM ACHS, qHS - Dextrose with K CL @ 70 cc/hour #Hypokalemia - 3.4 this AM. Received K CL in dextrose; - Daily BMPs - Replete as needed #Sinus tachycardia - likely secondary to sepsis; likely components of dehydration, respiratory distress - Monitor #Afib - Currently NSR, CHADsVasc 3 - Daughter refused NOACS, BBs #MM - no longer receiving chemo tx - Heme/onc consulted - palliative care consult placed by Dr. Bello; f/u for plan for family meeting - Intracranial MM noted on non-con CT today #Decreased PO intake -Refusing oral feeds; Puree diet #PPX Heparin Subq #FEN Dextrose with K CL @ 70 cc/hour Daily BMPs Puree diet Dispo: Failure to thrive -clinically continues to deteriorate - poor oral intake -Palliative care discussed with daughter at bedside. -Family understands poor prognosis and agree for palliative care. Plan to discharge tomorrow. Visit type - Emergency Visit Emergency Visit: Yes ED Registration Date: 06/09/17 Care time: The patient presented to the Emergency Department on the above date and was hospitalized for further evaluation of their emergent condition. - New Patient This patient is new to me today: No - Critical Care Critical Care patient: No
[2017-06-15] MEDS: SENNOSIDES 8.6MG TABLET (FP) PO SCH (21:29)
[2017-06-15] MEDS: HYDROCORTISONE 2.5% TOPICAL CREAM 30 GM TUBE PR SCH (22:32)
[2017-06-16] MEDS: POLYETHYLENE GLYCOL 3350 119 GM BTL PO SCH (05:45)
[2017-06-16] MEDS: HEPARIN NA (PORCINE) 5,000 UNITS/ML 1ML VIAL SQ SCH (05:45)
[2017-06-16 07:56] LABS: ANION GAP 9 (8-16); BLOOD UREA NITROGEN 39 mg/dL (7-18); CHLORIDE 118 mmol/L (98-107); CO2 19 mmol/L (21-32); GLUCOSE,RANDOM 74 mg/dL (74-106); MAGNESIUM 1.1 mg/dL (1.8-2.4); POTASSIUM 3.8 mmol/L (3.5-5.1); SODIUM 146 mmol/L (136-145)
[2017-06-16 08:09] LABS: CALCIUM 6.9 mg/dL (8.5-10.1)
[2017-06-16] MEDS: DEXTROSE 5%-WATER - 1,000 ML with POTASSIUM CHLORIDE 20 MEQ IV SCH (08:45)
[2017-06-16] MEDS: CEFEPIME 2 GM in DEXTROSE 5%-WATER - 100 ML IVPB SCH (09:53)
[2017-06-16] MEDS: HYDROCORTISONE 2.5% TOPICAL CREAM 30 GM TUBE PR SCH (09:55)
[2017-06-16] MEDS: LACTOBACILLUS ACIDOPHILUS 1 EACH TAB (FP) PO SCH (09:56)
[2017-06-16] MEDS: NYSTATIN POWDER 100,000 UNITS/GM - 15 GM TOPICAL POWDER TP SCH (09:56)
[2017-06-16] MEDS: CALCIUM CARBONATE SUSPENSION - 500 MG/5 ML ML PO SCH (09:56)
[2017-06-16 10:55] VITALS: BP 98/47; PULSE 90; TEMP 98
--- NOTE | 2017-06-16 13:02 | PN ---
Teaching Attending Note Name of Resident: Shandra Wolff ATTENDING PHYSICIAN STATEMENT Time of evaluation: 7:40 AM I saw and evaluated the patient. I reviewed the resident's note and discussed the case with the resident. I agree with the resident's findings and plan as documented. SUBJECTIVE: Patient seen and examined, lethargic and non verbal, poor oral intake. daughter at bedside. OBJECTIVE: Vital Signs Period Temp Pulse Resp BP Sys/Saucedo Pulse Ox Last 24 Hr 97.4 F-98.3 F 90-105 18-20 87-114/47-73 95-95 Intake & Output 06/13/17 06/14/17 06/15/17 06/16/17 23:59 23:59 23:59 23:59 Intake Total 863 283 1560 770 Balance 478 948 0268 770 General: lethargic, minimal respiratory distress in bed Abdomen: soft, positive bowel sounds Neuro Lethargic, grimaces to pain, limited exam otherwise Home Medication List Medication Instructions Recorded Confirmed Type Acetaminophen [Tylenol] 650 mg PO QID PRN 06/09/17 06/09/17 History Laboratory Results - last 24 hr 06/16/17 06:30 Sodium 146 H Potassium 3.8 Chloride 118 H Carbon Dioxide 19 L Anion Gap 9 BUN 39 H Creatinine 2.0 H Random Glucose 74 Calcium 6.9 L* Magnesium 1.1 L Microbiology 06/14/17 22:00 Stool Clostridium difficile Antigen (ROSALINDA) - Final 06/14/17 22:00 Stool Clostridium difficile Toxin Assay - Final 06/09/17 14:39 Blood - Peripheral Venous Blood Culture - Final NO GROWTH AFTER 5 DAYS INCUBATION 06/09/17 18:09 Urine For Antigen Detection Legionella Antigen - Final 06/09/17 18:09 Urine For Antigen Detection Streptococcus pneumoniae Antigen (M - Final 06/09/17 15:54 Urine - Urine Clean Catch Urine Culture - Final Pseudomonas Aeruginosa 06/09/17 14:39 Blood - Peripheral Venous Blood Culture - Final Staphylococcus Epidermidis 06/09/17 18:08 Nasopharyngeal Swab Influenza Types A,B Antigen (ROSALINDA) - Final 06/09/17 18:08 Nasopharyngeal Swab - Final ASSESSMENT AND PLAN: 81yo F with PMH MM not on chemo (last dose 04/14), afib, spinal stenosis, CKD, OA recent prolonged hospital stay for PNA, when was transiently on HD, presented to the ER with fever, found with pseudomonas UTI. -Sepsis secondary to pseudomonas UTI -staph epidermidis bacteremia, ?contaminant -Acute hypoxic respiratory distress, improved -AMS, ?toxic metabolic encephalopathy from sepsis, dehydration, CT brain with evidence in cranial multiple myeloma -Acute on CKD stage II -Hypernatremia, suspect hypovolumic -Hypoglycemia -Hypokalemia -sinus tachycardia, suspect multifactorial from dehydration, sepsis, malignancy , respiratory symptoms -paroxysmal Atrial fibrillation, NSR currently CHADSvas 3, daughter refused NOAC and beta enmanuel in the past -Multiple myeloma not on chemo at this time Plan: Cefepime day 7 poor prognosis, lethargic, poor oral intake, minimal to none responses. Daughter at bedside, aware of the poor prognosis. Plan for d/c home hospice today.
== END 2017-06-16 10:58 | disposition hospice, home (50) | DRG 871 ==
LOC: JER 12:40 → JERBED 16:28 → J7W 19:15
PROVIDERS: ADMIT Internal Medicine; ATTEND Hospitalist
DX: A41.9 Sepsis, unspecified organism (principal); G93.41 Metabolic encephalopathy; J18.9 Pneumonia, unspecified organism; C90.00 Multiple myeloma not having achieved remission; E87.0 Hyperosmolality and hypernatremia; E46 Unspecified protein-calorie malnutrition; N17.9 Acute kidney failure, unspecified; N39.0 Urinary tract infection, site not specified; B96.5 Pseudomonas (aeruginosa) (mallei) (pseudomallei) as the cause of diseases classified elsewhere; R00.0 Tachycardia, unspecified; H91.8X3 Other specified hearing loss, bilateral; N18.2 Chronic kidney disease, stage 2 (mild); D63.8 Anemia in other chronic diseases classified elsewhere; K57.90 Diverticulosis of intestine, part unspecified, without perforation or abscess without bleeding; E78.5 Hyperlipidemia, unspecified; J44.9 Chronic obstructive pulmonary disease, unspecified; M48.54XS Collapsed vertebra, not elsewhere classified, thoracic region, sequela of fracture; R33.8 Other retention of urine; E87.6 Hypokalemia; E16.1 Other hypoglycemia; M19.90 Unspecified osteoarthritis, unspecified site; J84.89 Other specified interstitial pulmonary diseases; E86.0 Dehydration; J32.8 Other chronic sinusitis; M48.00 Spinal stenosis, site unspecified; I48.0 Paroxysmal atrial fibrillation; Z66 Do not resuscitate; Z88.0 Allergy status to penicillin; Z51.5 Encounter for palliative care
CPT/HCPCS: 36415; 70450-TC; 71045-TC; 76775-TC; 80048; 80053; 81003; 81015; 82436; 82550; 82570; 82803; 82962; 83605; 83735; 84100; 84133; 84300; 84484; 84550; 85025; 85027; 85610; 85730; 86738; 86850; 86900; 86901; 87040; 87086; 87186; 87324; 87449; 87804; 87899; 93005; 93010; 94640; 99285-25; G0480; J1644